=== PATIENT | female | born 1960 | race Caucasian/White ===

== ENCOUNTER 2023-09-06 14:33 | Emergency (ER) | payer OTHER ==
--- OUTSIDE RECORDS SUMMARY | 2023-09-06 14:42 | XMS REPORT | Continuity of Care Document ---
:1960 Author Organization [facility] t Address [address] [place] [address] [place] [id number] Care Team Providers Name Role Phone PATRICIO ZULETA Attending Clinician Unavailable Enriqueta Paulino MD, Marcia Jean Attending Clinici an Leonardo ROOT, Ana Loera Attending Clinician Lucia ROOT, Eric Attending Clinician Rosanna ROOT, Ivanna Saini Attending Clinician Tammi ROOT, Hermes Attending Clinician Shemar ROOT, Patricio Attending Clinician Virtual, Surgeon Attending Clinician Unavailable Lorie ROOT, Nunu Attending Clinician Jenae ZULETA, Benny Hooper Attending Clinician Unavailable Marisel Bolivar DO Attending Clinician Sage Lopez MD Attending Clinician MARISEL BOLIVAR Attending Clinician Unavailable Ger Rodriguez Attending Clinician VICKI CORONA Admitting Clinician Unavailable Sage Lopez MD Admitting Clinician Ger Rodriguez Admitting Clinician Payers Payer Name Policy Type Policy Number Effective Date Expiration Date S fidel MEDICARE A B [id number] 1996 00:00:00 GENERIC MEDICAID [id number] 2012 HMO 00:00:00 Problems Condition Condition Condition Status Onset Resolution Last Treating Co mments Source Name Details Category Date Date Treatment Clinician Date Osteoarthr Osteoarthr Disease [facility] Osteoporos Osteoporos Disease Recurre [facility] Intracereb Intracereb Disease Active [facility] ral bleed ral bleed 03-25 Luke s due to due to 00:00: Medical trauma trauma 00 Center ICH ICH Disease Active [facility] (intracere (intracere 03-25 Thelma kes bral bral 00:00: Medical hemorrhage hemorrhage 00 Ce nter ) ) UTI UTI Disease Active Univers (urinary (urinary 04-01 ity of tract tract 00:00: [place] infection) infection) 00 Me dical Branch Charcot-Ma Charcot-Ma Disease Recurre [facility] ev[facility]To[facility] nce 8-19 Luke s disease disease 00:00: Medical type 1F type 1F 00 Center Chronic Chronic Disease Recurre Overview: [facility] viral viral [facility] 8[facility] hepatitis hepatitis 00:00: g of this edical C C 00 note Center might be different from the original. Formattin g of this note might be different from the original. Chronic Hep C - untreated Pt refuses treatment and referral Essential Essential Disease Recurre Overview: [facility] hypertensi hypertensi nce 8-19 [facility] on on 00:00: g of this Medical 00 note Center might be different from the original. Formattin g of this note might be different from the original. On amlodipin e and metoprolo l Well controlle d Hyperlipid Hyperlipid Disease Recurre [facility] em[facility] emia [facility] 00:[facility]: Medical 00 Center Spina Spina Disease Recurre [facility] bifida bifida nce 8[facility] occulta occulta 00:00: Medical 00 Center NON-STEMI, NON-STEMI Diagnosis Active 2018-01-09 Memoria HYPOKALEMI , - 21:49:00 l , HYPOKALEMI 00:00: Lucas n DEHYDRATIO , 00 N DEHYDRATIO N Active 01/02/2018 [facility] Acidosis Acidosis Problem 2018-04-13 Memoria 04/13/2018 13:54:16 l [facility] Abnormal Abnormal Problem 2018-04-13 Memoria levels of levels of 13:54:16 l other other Wanda serum serum enzymes enzymes 04/13/2018 [facility] Scoliosis, Scoliosis Problem 2018-04-13 Memoria unspecifie , 13:54:16 l d unspecifie Lucas n d 04/13/2018 [facility] Other Other Problem 2018-04-13 Raphael natalie disorders disorders 13:54:16 l of of [place] phosphorus phosphorus metabolism metabolism 04/13/2018 [facility] Other Other Problem 2018-04-13 Memor ia disorders disorders 13:54:16 l of of [place] electrolyt electrolyt e and e and fluid fluid balance, balance, not not elsewhere elsewhere classified classified 04/13/2018 [facility] Emphysema, Emphysema Problem 2018-04-13 Memoria unspecifie , 13:54:16 l d unspecifie Lucas n d 04/13/2018 [facility] Spina Spina Problem 2018-04-13 Memor ia bifida, bifida, 13:54:16 l unspecifie unspecifie He rmann d d 04/13/2018 [facility] Unspecifie Unspecifi Problem 2018-04-13 Memoria d fall, ed fall, 13:54:16 l initial initial Wanda encounter encounter 04/13/2018 [facility] Elevated Elevated Problem 2018-04-13 Memoria white white 13:54:16 l blood cell blood cell He [facility] count, count, unspecifie unspecifie d d 04/13/2018 [facility] Adverse Adverse Problem 2018-04-13 Me moria effect of effect of 13:54:16 l carbonic-a carbonic-a He [facility] nhydrase nhydrase inhibitors inhibitors , , benzothiad benzothiad iazides iazides and other and other diuretics, diuretics, initial initial encounter encounter 04/13/2018 [facility] Nicotine Nicotine Problem 2018-04-13 Memoria dependence dependence 13:54:16 l , Wanda cigarettes cigarettes , , uncomplica uncomplica darrion darrion 04/13/2018 [facility] Headache Headache Problem 2018-04-13 Memoria 04/13/2018 13:54:16 l [facility] Vitamin D Vitamin D Problem 2018-04-13 Memoria deficiency deficiency 13:54:16 l , , Wanda unspecifie unspecifie d d 04/13/2018 [facility] Age-relate Age-relat Problem 2018-04-13 Memoria d physical ed 13:54:16 l debility physical Lucas monterroso debility 04/13/2018 [facility] Unspecifie Problem 2018-04-13 M emoria d asthma, Unspecifie 13:54:16 l uncomplica d asthma, Her caicedo darrion uncomplica darrion 04/13/2018 [facility] Constipati Constipat Problem 2018-04-13 Memoria on, ion, 13:54:16 l unspecifie unspecifie He rmann d d 04/13/2018 [facility] Chronic Chronic Problem 2018-04-13 Me moria kidney kidney 13:54:16 l disease, disease, Lucas monterroso stage 2 stage 2 (mild) (mild) 04/13/2018 [facility] Tobacco Tobacco Problem 2018-04-13 Me moria abuse abuse 13:54:16 l counseling counseling He rmann 04/13/2018 [facility] Charcot Charcot Problem Resolve 2018-04-13 M emoria arthropath arthropath d 13:54:16 l y due to y due to Lucas monterroso syringomye syringomye ambrose ambrose (disorder) (disorder) Resolved Problem 04/13/2018 [facility] Hypertensi Hypertens Problem Resolve 2018-04-13 Memoria ve tony d 13:54:16 l disorder, disorder, Herm derrick systemic systemic arterial arterial (disorder) (disorder) Resolved Problem 04/13/2018 [facility] Scoliosis Scoliosis Problem Active 2018-04-13 Memoria deformity deformity 13:54:16 l of spine of spine Lucas monterroso (disorder) (disorder) Active Problem 04/13/2018 [facility] NON-ST NON-ST Diagnosis Active 2018-01-09 Me moria ELEVATION ELEVATION 21:49:00 l (NSTEMI) (NSTEMI) Lucas monterroso MYOCARDIAL MYOCARDIAL INF INF Active [facility] [place] HYPOKALEMI HYPOKALEM Diagnosis Active 2018-01-09 Memoria A IA Active 21:49:00 l [facility] [place] Curran Dehydratio Dehydrati Problem 2018-04-13 Juliaoria n on 13:54:16 l 04/13/2018 Lucas monterroso [facility] Syringomye Syringomy Problem 2018-04-13 Memoria ambrose and taryn and 13:54:16 l syringobul syringobul He rmderrick courtney courtney 04/13/2018 [facility] Acute Acute Problem 2018-04-13 Memor ia kidney kidney 13:54:16 l failure, failure, Lucas monterroso unspecifie unspecifie d d 04/13/2018 [facility] Unspecifie Unspecifi Problem 2018-04-13 Memoria d ed 13:54:16 l diastolic diastolic Herm derrick (congestiv (congestiv e) heart e) heart failure failure 04/13/2018 [facility] Hypertensi Hypertens Problem 2018-04-13 Memoria ve heart tony heart 13:54:16 l and and [place] chronic chronic kidney kidney disease disease with heart with heart failure failure and stage and stage 1 through 1 through stage 4 stage 4 chronic chronic kidney kidney disease, disease, or or unspecifie unspecifie d chronic d chronic kidney kidney disease disease 04/13/2018 [facility] Hypo-osmol Hypo-osmo Problem 2018-04-13 Memoria alililia and lality and 13:54:16 l hyponatrem hyponatrem He rmann ia ia 04/13/2018 [facility] History of Past Illness Condition Condition Condition Status Onset Resolution Last Treating Co mments Source Name Details Category Date Date Treatment Clinician Date Hypokalemi Hypokalem Problem 2017-2018-04-13 2018-04-13 Joesph a ia 3-15 13:54:16 13:54:16 l 01/12/2018 03:20: Lucas monterroso 04/13/2018 45 [facility] Allergies, Adverse Reactions, Alerts Allergy Allergy Status Severity Reaction(s) Onset Inactive Treating Comm ents Source Name Type Date Date Clinician PROPOXYP Allergy Active [facility]26 [facility] N-ACETAM 00:00: Medical INOPHEN 00 Center Propoxyp Propensi Active [facility] hene ty to 5-26 [facility] N-Acetam adverse 00:00: Medical inophen reaction 00 Center s PROPOXYP DRUG Active Low N/V Univers HENE 6-02 ity of N-ACETAM 00:00: [place] INOPHEN 00 Medical Branch PROPOXYP DRUG Active Low N/V Univers HENE INGREDI 04-01 ity of 00:00: [place] 00 [facility] Branch Propoxyp Propensi Active Nausea Univer s hene ty to and/or 04-01 ity of N-Acetam adverse Vomiting 00:00: [place] inophen reaction [facility] Propoxyp Propensi Active Nausea [facility] s hene ty to and/or 04-01 ity of adverse Vomiting 00:00: [place] reaction 00 [facility] NO KNOWN Allergy Active [facility] NO KNOWN Drug Active [facility] ALLERGIE Class ity of S [facility] Social History Social Habit Start Date Stop Date Quantity Comments Source Exposure to Not sure University of SARS-CoV-2 [facility] (event) [place] Tobacco use and 2021-04-01 2021-04-01 Never used Universit y of exposure 00:00:00 00:00:00 [facility] Alcohol intake 2021-04-01 2021-04-01 Current drinker Unive rsity of 00:00:00 00:00:00 of alcohol [facility] (finding) [place] Alcohol Comment 2021-04-01 2021-04-01 socially Universit y of 00:00:00 00:00:00 [facility] Social History 2018-01-03 2018-01-03 [facility] 07:24:02 07:24:02 Sex Assigned At [address] Thelma kes 00:00:00 00:00:00 [facility] Smoking Status Start Date Stop Date Source Current every day smoker 2021-04-01 00:00:00 Uni versity of [facility] Medications Ordered Filled Start Stop Current Ordering Indication Dosage Frequency Signature Comments Components Source Medication Medication Date Date Medication? Clinician (SIG) Name Name pantoprazol 2022- No 40mg QD Take [address] [facility] e 04-01 tablet (40 [facility] (PROTONIX) 00:00: 23:59 mg total) M edical 40 MG 00 :00 by mouth Center tablet in the morning for 30 days. gabapentin 2023- No 300mg [id number] Take [address] (NEURONTIN) 03-31 0531 [id number] capsule [facility] 300 MG 00:00: 23:59 3D (300 mg Medical capsule 00 :00 total) by Center mouth in the morning and 1 capsule (300 mg total) at noon and 1 capsule (300 mg total) in the evening. cyclobenzap 0 2022- No 10mg Take [address] [facility] rine 6-01 06-11 tablet (10 [facility] (FLEXERIL) 00:00: 23:59 mg total) M edical 10 MG 00 :00 by mouth 3 Center tablet (three) times daily as needed for Muscle spasms for up to 10 days. HYDROcodone 0 Yes 1{tbl} Take 1 Un lesly -acetaminop 6-04 tablet by ity of hen 10-325 23:15: mouth [place] mg tablet 04 every 8 Medical (eight) Branch hours as needed. gabapentin 0 Yes 300mg Take 300 Un lesly ER 300 mg 6-04 mg by ity of tablet, 23:15: mouth 3 [place] extended 04 (three) Medical release 24 times Branch hr daily. ibuprofen 0 Yes 800mg Take 800 Uni vers 600 mg 6-04 mg by ity of tablet 23:15: mouth 3 [place] 04 (three) Medical times Branch daily. cyclobenzap 0 Yes 10mg Take 10 mg Univers rine 5 mg 6-04 by mouth 3 ity of tablet 23:15: (three) [place] 04 times Medical daily. Branch amitriptyli Yes 75mg Take 75 mg Univers ne 75 mg 6-04 by mouth ity of tablet 23:15: at [place] 04 bedtime. Medical Branch amLODIPine 0 Yes 5mg Take 5 mg Un lesly 5 mg tablet 6-04 by mouth ity of 23:15: daily. [place] 04 Medical Branch butalbital- 2020-0 Yes 1{capsu Take 1 U nivers aspirin-caf 6-04 le} capsule by it y of feine 23:15: mouth [place] (FIORINAL) 04 every 4 Medica l 50-325-40 (four) Branch mg per hours as capsule needed for Pain. metoprolol 0 Yes 25mg Take 25 mg U nivers succinate 6-04 by mouth 3 ity of 25 mg CSpX 23:15: (three) [place] 04 times Medical daily. Branch HYDROcodone 0 Yes 1{tbl} Take 1 Un lesly -acetaminop 6-04 tablet by ity of hen 10-325 23:15: mouth [place] mg tablet 04 every 8 Medical (eight) Branch hours as needed. gabapentin Yes 300mg Take 300 Un lesly ER 300 mg 6-04 mg by ity of tablet, 23:15: mouth 3 [place] extended 04 (three) Medical release 24 times Branch hr daily. ibuprofen Yes 800mg Take 800 Uni vers 600 mg 6-04 mg by ity of tablet 23:15: mouth 3 [place] 04 (three) Medical times Branch daily. cyclobenzap Yes 10mg Take 10 mg Univers rine 5 mg 6-04 by mouth 3 ity of tablet 23:15: (three) [place] 04 times Medical daily. Branch amitriptyli Yes 75mg Take 75 mg Univers ne 75 mg 6-04 by mouth ity of tablet 23:15: at [place] 04 bedtime. Medical Branch amLODIPine Yes 5mg Take 5 mg Un lesly 5 mg tablet 6-04 by mouth ity of 23:15: daily. 04 Medical Branch butalbital- Yes 1{capsu Take 1 U nivers aspirin-caf 6-04 le} capsule by it y of feine 23:15: mouth [place] (FIORINAL) 04 every 4 Medica l 50-325-40 (four) Branch mg per hours as capsule needed for Pain. metoprolol Yes 25mg Take 25 mg U nivers succinate 6-04 by mouth 3 ity of 25 mg CSpX 23:15: (three) [place] 04 times Medical daily. Branch butalbital- Yes 1{tbl} 1 tablet, Univers acetaminoph 6-04 Oral, ity of en-caff 10:52: Q6HPRN, [place] (ESGIC) 03 Starting Medical 50-325-40 04/03/21 Bran ch mg tablet 1 at 0552, tablet Until Discontinu ed, Routine, Headache levoFLOXaci 2020- No [id number] 750mg Take 1 Univers n 750 mg 6-04 06-15 tablet by ity o f tablet 00:00: 04:59 mouth [place] 00 :00 every 24 Medical (twenty-fo Branch ur) hours for 10 days. levoFLOXaci 2020- No [id number] 750mg Take 1 Univers n 750 mg 04-03 tablet by ity o f tablet 00:00: 04:59 mouth [place] 00 :00 every 24 Medical (twenty-fo [place] ur) hours for 10 days. magnesium 2020- No 2g 2 g, IV Univ ers sulfate in 04-02 Piggyback, it y of water 2 23:45: 23:31 ONCE, 1 [place] gram/50 mL 00 :00 dose, [facility] Medi amina (4 %) 04/02/21 at Branch infusion 2 1845, g Routine cefTRIAXone Yes 2000mg 2,000 mg, Univers (ROCEPHIN) 04-02 IV ity of 2,000 mg in 18:00: Piggyback, [place] NaCl 0.9% 00 Q24H ABX, Medic al (NS) 100 mL First dose Br anch MINI-BAG (after last modificati on) on Jeri 04/02/21 at 1300, Until Discontinu ed, 100 mL
Reas on for Anti-Infec tive: Empiric Therapy for Suspected Infection< br>Empiric Therapy Site: Urine
D uration of therapy: 72 hours magnesium 2020- No 2g 2 g, IV Univ ers sulfate in 04-02 Piggyback, it y of water 2 14:30: 14:25 ONCE, 1 [place] gram/50 mL 00 :00 dose, [facility] Medi amina (4 %) 04/02/21 at [place] infusion 2 0930, g Routine amLODIPine Yes 5mg 5 mg, Univer s (NORVASC) 04-02 Oral, ity of tablet 5 mg 14:00: DAILY, [place] 00 First dose Medical (after [place] last modificati on) on Jeri 04/02/21 at 0900, Until Discontinu ed, Routine phosphorus Yes 250mg 1 tablet Un lesly (K PHOS 04-02 (250 mg), ity of NEUTRAL) 13:30: Oral, QID, J[place] as tablet 1 00 First dose Medic al tablet on Jeri Branch 04/02/21 at 0830, Until Discontinu ed, Routine KCL 2020- No 60meq 60 mEq, Univers (KLOR-CON 04-02 Oral, BID, ity of M20) tablet 13:30: 13:27 First dose [place] 60 mEq 00 :27 (after Medical last Branch reorder) on Jeri 04/02/21 at 0830, Until Discontinu ed, Routine potassium 2020- No 10meq 10 mEq, IV Univers chloride in 04-02 Piggyback, i ty of water 10 13:30: 18:55 Q1H, 4 [place] mEq/100 mL 00 :00 doses, Medical RTU 10 mEq First dose Bra nch on Jeri 04/02/21 at 0830, Last dose on Jeri 04/02/21 at 1100, 100 mL NaCl 0.9% 2020- No 1000mL at 100 Uni vers (NS) IV 04-02 mL/hr, IV ity of infusion 06:30: 05:37 Infusion, J[place] as 1,000 mL 00 :00 ONCE, 1 Medical dose, [facility] 04/02/21 at 0130, Routine nicotine Yes 1{patch 1 Patch, Un lesly (NICODERM) 04-02 } Topical, ity o f 14 mg/24 hr 01:45: Administer [place] patch 1 00 over 24 Medical Patch Hours, Branch Q24H, First dose on Tue04/01/21 at 2045, Until Discontinu ed, Routine metoprolol Yes 25mg 25 mg, Unive rs succinate 04-02 Oral, TID, ity of XL (TOPROL 01:00: First dose [place] XL) tablet 00 on Tue Medical 25 mg 04/01/21 at Branch 1999, Until Discontinu ed gabapentin 2020- No 300mg 300 mg, Un lesly (NEURONTIN) 04-02 Oral, TID, i ty of capsule 300 01:00: 05:27 First dose [place] mg 00 :59 on Tue Medical 04/01/21 at Branch 1999, Until Discontinu ed cyclobenzap 2020- No 10mg 10 mg, Uni vers rine 04-02 Oral, TID, ity of (FLEXERIL) 01:00: 05:28 First dose [place] tablet 10 00 :04 on Tue Medical mg 04/01/21 at Branch 1999, Until Discontinu ed, Routine metoprolol No 25mg Take 25 mg Univers succinate 04-01 by mouth ity o f XL 25 mg 24 23:54: 00:00 daily. Jaxon as hr tablet 35 :00 [facility] predniSONE No 10mg Take 10 mg Univers 10 mg 04-01 by mouth ity of tablet 23:54: 00:00 daily. [place] 35 :00 [facility] HYDROcodone Yes 1{tbl} 1 tablet, Univers -acetaminop 04-01 Oral, ity of hen (NORCO) 23:53: Q8HPRN, [place] as 10-325 mg 35 Starting Medica l tablet 1 Tue04/01/21 Bran h tablet at 1853, Until Discontinu ed, Routine, Pain (scale 7-10) cefTRIAXone No 1000mg 1,000 mg, Univers (ROCEPHIN) 04-01 IV ity of 1,000 mg in 22:15: 22:03 [place], [place] NaCl 0.9% 00 :00 ONCE, 1 Medical (NS) 50 mL dose, Tue [facility] MINI-BAG 04/01/21 at 1715, 50 mL
Reas on for Anti-Infec tive: Empiric Therapy for Suspected Infection< br>Empiric Therapy Site: Urine
D uration of therapy: 72 hours enoxaparin Yes 30mg 30 mg, Unive rs (LOVENOX) 04-01 Subcutaneo ity of injection 22:00: us, DAILY, [place] 30 mg 00 First dose Medical on Tue Branch 04/01/21 at 1700, Until Discontinu ed, Routine NaCl 0.9% 2020- No 1000mL at 100 Uni vers (NS) IV 04-01-03 mL/hr, IV ity of infusion 21:15: 05:28 Infusion, J[place] as 1,000 mL 00 :20 CONTINUOUS Medic al , Starting Branch Tue04/01/21 at 1615, Until Jeri 04/02/21 at 0028, Routine iopamidol 2020- No [id number] 130mL 130 mL, Univers (ISOVUE 04-01 Intravenou ity o f 370-500 mL) 20:08: 20:07 s, ONCE, 1 [place] injection 00 :00 dose, Tue Medic al 130 mL 04/01/21 at Branch 1530, Routine acetaminoph Yes 650mg 650 mg, Un lesly en 04-01 Oral, ity of (TYLENOL) 20:03: Q6HPRN, [place] tablet 650 59 Starting Medic al mg 04/01/21 Branch at 1503, Until Discontinu ed, Routine, Pain (scale 1-3) KCL 2020- No 40meq 40 mEq, Univers (KLOR-CON 04-01 Oral, ity of M20) tablet 20:00: 18:53 ONCE, 1 [place] 40 mEq 00 :00 dose, [facility] Medical 04/01/21 at Branch 1500, Routine cefTRIAXone 2020- No 1000mg 1,000 mg, Univers (ROCEPHIN) 04-01 IV ity of 1,000 mg in 19:00: 18:48 Piggyback, [place] NaCl 0.9% 00 :00 ONCE, 1 Medical (NS) 50 mL dose, Tue Bran ch MINI-BAG 04/01/21 at 1400, 50 mL
Reas on for Anti-Infec tive: Empiric Therapy for Suspected Infection< br>Empiric Therapy Site: Urine
D uration of therapy: 72 hours acetaminoph 2020- No 1000mg 1,000 mg, Univers en 04-01 Oral, ity of (TYLENOL) 18:30: 17:21 ONCE, 1 [place] tablet 00 :00 dose, [facility] Medical 1,000 mg 04/01/21 at Branch 1330, Routine NaCl 0.9% 2020- No 1000mL at 999 Uni vers (NS) bolus 04-0102 mL/hr, ity of infusion 18:30: 18:14 1,000 mL, [place] as 1,000 mL 00 :00 IV Medical Infusion, [place] ONCE, 1 dose, 04/01/21 at 1330, STAT potassium 2018- No Notes: Juliaori a phosphate-s 3-08 (Same as: l odium 23:00: Phos-NaK) Wanda phosphate 00 Each 1.5 250 mg-280 gm pkt has mg-160 mg 250mg oral powder phosphorou for s. Mix reconstitut w/2.5oz ion water and stir. Indomethaci No Notes: Raphael natalie n -08 (Same as: l 23:00: Indocin) [place] 00 Take with food potassium No Notes: Memori a phosphate-s 01-05 (Same as: l odium 23:00: Phos-NaK) Wanda phosphate 00 Each 1.5 250 mg-280 gm pkt has mg-160 mg 250mg oral powder phosphorou for s. Mix reconstitut w/2.5oz ion water and stir. Indomethaci No Notes: Raphael natalie n 3-08 (Same as: l 23:00: Indocin) Wanda Take with food spironolact Yes 25 mg = 1 M emoria one 25 mg 3-08 tab, PO, l oral tablet 19:55: BID, # 60 H ermann 00 tab, 0 Refill(s) potassium Yes 1 pkt, PO, Me moria phosphate-s 01-05 BID, # 60 l odium 19:55: pkt, 0 Wanda phosphate 00 Refill(s) 250 mg-280 mg-160 mg oral powder for reconstitut ion potassium Yes 40 mEq = 2 Me moria chloride 20 3-08 tab, PO, l mEq oral 19:55: BID, # 120 Her caicedo tablet, 00 tab, 0 extended Refill(s) release 24 HR No = 1 patch, Memori a Nicotine 3-08 TOP, l 0.875 MG/HR 19:55: Daily, X He rmann Transdermal 00 14 day, # Patch 14 patch, 0 Refill(s) metoprolol Yes 25 mg = 1 Me moria 25 mg oral 3-08 tab, PO, l tablet, 19:55: Daily, # Lucas n extended 00 30 tab, 2 release Refill(s) atorvastati Yes 40 mg = 1 M emoria n 40 mg 3-08 tab, PO, l oral tablet 19:55: Bedtime, # Magdy 00 30 tab, 2 Refill(s) Aspirin 81 Yes 81 mg = 1 Me moria MG Enteric 3-08 tab, PO, l Coated 19:55: Daily, # Wanda Tablet 00 30 tab, 2 Refill(s) spironolact Yes 25 mg = 1 M emoria one 25 mg 3-08 tab, PO, l oral tablet 19:55: BID, # 60 H ermann 00 tab, 0 Refill(s) potassium Yes 1 pkt, PO, Me moria phosphate-s 3-08 BID, # 60 l odium 19:55: pkt, 0 Magdy phosphate 00 Refill(s) 250 mg-280 mg-160 mg oral powder for reconstitut ion potassium Yes 40 mEq = 2 Me moria chloride 20 3-08 tab, PO, l mEq oral 19:55: BID, # 120 Her caicedo tablet, 00 tab, 0 extended Refill(s) release 24 HR No = 1 patch, Memori a Nicotine 3-08 TOP, l 0.875 MG/HR 19:55: Daily, X He rmann Transdermal 00 14 day, # Patch 14 patch, 0 Refill(s) metoprolol Yes 25 mg = 1 Me moria 25 mg oral 3-08 tab, PO, l tablet, 19:55: Daily, # Lucas n extended 00 30 tab, 2 release Refill(s) atorvastati Yes 40 mg = 1 M emoria n 40 mg 3-08 tab, PO, l oral tablet 19:55: Bedtime, # Wanda 00 30 tab, 2 Refill(s) Aspirin 81 Yes 81 mg = 1 Me moria MG Enteric 3-08 tab, PO, l Coated 19:55: Daily, # Magdy Tablet 00 30 tab, 2 Refill(s) potassium No Notes: Memori a phosphate + 3-08 (Same as: l Sodium 17:26: K Wanda Chloride 00 Phosphate. 0.9% IV 250 ) 1 mMol mL phoshate has 1.47 mEq potassium Infuse over 4 hours potassium No Notes: Memori a phosphate + 3-08 (Same as: l Sodium 17:26: K Magdy Chloride 00 Phosphate. 0.9% IV 250 ) 1 mMol mL phoshate has 1.47 mEq potassium Infuse over 4 hours Ergocalcife No Notes: Raphael natalie rol -08 (Same as: l 15:00: Vitamin D) Mag[place] 00 "Do Not Crush" Ergocalcife No Notes: Raphael natalie rol 3-08 (Same as: l 15:00: Vitamin D) Magdy "Do Not Crush" Potassium No 40 mEq, Memor ia Chloride 3-08 Route: PO, l 14:38: ONCE, Mag[place] 00 Dosing Weight 44.091, kg, Start date: 01/05/18 8:38:00 [employer], Stop date: 01/05/18 8:38:00 [employer] Potassium No 40 mEq, Memor ia Chloride 3-08 Route: PO, l 14:38: ONCE, Wanda 00 Dosing Weight 44.091, kg, Start date: 01/05/18 8:38:00 [employer], Stop date: 01/05/18 8:38:00 [employer] potassium No Notes: Memori a phosphate 3-08 (Same as: l 12:16: K Wanda 00 Phosphate. ) 1 mMol phoshate has 1.47 mEq potassium Infuse over 4 hours potassium No Notes: Memori a phosphate 3-08 (Same as: l 12:16: K Mag[place] 00 Phosphate. ) 1 mMol phoshate has 1.47 mEq potassium Infuse over 4 hours potassium No Notes: Memori a chloride 20 3-07 (Same as: l mEq oral 23:00: K-Dur 20) Herm derrick tablet, 00 "Do Not extended Crush" release With food and full glass of water potassium No Notes: Memori a chloride 20 3-07 (Same as: l mEq oral 23:00: K-Dur 20) Herm derrick tablet, 00 "Do Not extended Crush" release With food and full glass of water Potassium No Notes: Memori a Chloride 3-07 (Same as: l 22:08: K-Dur 20) Magdy 00 "Do Not Crush" With food and full glass of water Potassium No Notes: Memori a Chloride 3-07 (Same as: l 22:08: K-Dur 20) Magdy 00 "Do Not Crush" With food and full glass of water Famotidine No Notes: Memor ia 20 MG Oral 3-07 (Same as: l Tablet 15:00: Pepcid) Wanda [Pepcid] 00 potassium 2017-0 No 40 mEq, 2 Mem oria chloride 20 3-07 tab, l mEq oral 15:00: Route: PO, Her caicedo tablet, 00 Drug form: extended ERTAB, release Daily, Dosing Weight 44.091, kg, Start date: 01/04/18 9:00:00 [employer], Duration: 30 day, Stop date: 02/02/18 9:00:00 CDT Prednisone 2017-0 No Notes: Memor ia 3-07 (Same as: l 15:00: PredniSONE Magdy ) Take with food. Famotidine No Notes: Memor ia 20 MG Oral 3-07 (Same as: l Tablet 15:00: Pepcid) Wanda [Pepcid] potassium No 40 mEq, 2 Mem oria chloride 20 3-07 tab, l mEq oral 15:00: Route: PO, Her caicedo tablet, 00 Drug form: extended ERTAB, release Daily, Dosing Weight 44.091, kg, Start date: 01/04/18 9:00:00 [employer]ER, Duration: 30 day, Stop date: 02/02/18 9:00:00 CDT Prednisone 2017-0 No Notes: Memor ia 3-07 (Same as: l 15:00: PredniSONE ) Take with food. potassium No Notes: Memori a chloride 20 3-07 (Same as: l mEq oral 14:18: K-Dur 20) Herm derrick tablet, 00 "Do Not extended Crush" release With food and full glass of water potassium No Notes: Memori a chloride 20 3-07 (Same as: l mEq oral 14:18: K-Dur 20) Herm derrick tablet, 00 "Do Not extended Crush" release With food and full glass of water Potassium 0 No Notes: Memori a Chloride 3-07 (Same as: l 08:00: KCL) 00 Infuse no faster than 10 mEq/hr if given peripheral ly. Potassium 0 No Notes: Memori a Chloride 3-07 (Same as: l 08:00: KCL) Magdy 00 Infuse no faster than 10 mEq/hr if given peripheral ly. Indomethaci No Notes: Raphael natalie n 3-07 (Same as: l 03:45: Indocin) Wanda 00 Take with food Spironolact No Notes: Raphael natalie one 3-07 (Same As: l 03:45: Aldactone) Indomethaci No Notes: Raphael natalie n 3-07 (Same as: l 03:45: Indocin) Take with food Spironolact No Notes: Raphael natalie one 3-07 (Same As: l 03:45: Aldactone) atorvastati No Notes: Raphael natalie n 3-07 (Same as: l 03:00: Lipitor) Amitriptyli No Notes: Raphael natalie ne 3-07 (Same as: l 03:00: Elavil) atorvastati No Notes: Raphael natalie n 3-07 (Same as: l 03:00: Lipitor) Amitriptyli No Notes: Raphael natalie ne 3-07 (Same as: l 03:00: Elavil) Potassium No 20 mEq, Memor ia Chloride 3-07 Route: l 02:00: IVPB, Q2H, Dosing Weight 44.091, kg, Total dose = 80 mEq, Start date: 01/03/18 20:00:00 [employer]ER, Duration: 4 doses or times, Stop date: 01/04/18 2:00:00 [employer] ASSETS OFFICER, Central Line Potassium No 20 mEq, Memor ia Chloride 3-07 Route: l 02:00: IVPB, Q2H, Dosing Weight 44.091, kg, Total dose = 80 mEq, Start date: 01/03/18 20:00:00 [employer] OFF[employer]ER, Duration: 4 doses or times, Stop date: 01/04/18 2:00:00 [employer] ASSETS OFFICER, Central Line Potassium 2017-0 No Notes: Memori a Chloride 3-07 (Same as: l 00:09: KCL) Infuse no faster than 10 mEq/hr if given peripheral ly. Potassium No Notes: Memori a Chloride 3-07 (Same as: l 00:09: KCL) Infuse no faster than 10 mEq/hr if given peripheral ly. Potassium 2018-0 No Notes: Memori a Chloride 3-07 (Same as: l 00:01: K-Dur 20) Wanda 00 "Do Not Crush" With food and full glass of water Potassium No Notes: Memori a Chloride 3-07 (Same as: l 00:01: K-Dur 20) Magdy 00 "Do Not Crush" With food and full glass of water Nicotine No Notes: Memoria 3-06 (Same as: l 21:00: Habitrol) Magdy 00 "Remove old patch before applicatio n of new patch" WASTE: F/P - P Waste Black; E - P Waste Black Nicotine No Notes: Memoria 3-06 (Same as: l 21:00: Habitrol) Wanda 00 "Remove old patch before applicatio n of new patch" WASTE: F/P - P Waste Black; E - P Waste Black Nicotine No 21 mg, Memoria 3-06 Route: l 20:12: TOP, Drug Wanda 00 form: ERFILM, ONCE, Dosing Weight 44.091, kg, Start date: 01/03/18 14:12:00 [employer], Stop date: 01/03/18 14:12:00 [employer]ER Nicotine No 21 mg, Memoria 3-06 Route: l 20:12: TOP, Drug Magdy 00 form: ERFILM, ONCE, Dosing Weight 44.091, kg, Start date: 01/03/18 14:12:00 [employer] OFFICER, Stop date: 01/03/18 14:12:00 [employer] OFF[employer]ER potassium No Notes: Memori a chloride 20 3-06 (Same as: l mEq oral 16:57: K-Dur 20) Herm derrick tablet, 00 "Do Not extended Crush" release With food and full glass of water potassium No Notes: Memori a chloride 20 3-06 (Same as: l mEq oral 16:57: K-Dur 20) Herm derrick tablet, 00 "Do Not extended Crush" release With food and full glass of water Saline No Notes: Memoria Flush 0.9% 3-06 (Same as: l 15:00: BD Wanda 00 Posiflush) potassium No Notes: Memori a chloride 20 3-06 (Same as: l mEq oral 15:00: K-Dur 20) Herm derrick tablet, 00 "Do Not extended Crush" release With food and full glass of water Aspirin 81 No Notes: Do Me moria MG Enteric 3-06 not crush l Coated 15:00: or chew. Wanda Tablet 00 (Same As: Ecotrin) enalapril No 2.5 mg, Memor ia 3-06 Route: PO, l 15:00: Drug form: Wanda 00 TAB, Daily, Dosing Weight 44.273, kg, Start date: 01/03/18 9:00:00 [employer]ER, Duration: 30 day, Stop date: 02/01/18 9:00:00 CDT metoprolol No Notes: Memor ia extended 3-06 (Same as: l release 15:00: Toprol XL) Herm derrick 00 Do Not Crush Saline No Notes: Memoria Flush 0.9% 3-06 (Same as: l 15:00: BD Magdy 00 Posiflush) potassium No Notes: Memori a chloride 20 3-06 (Same as: l mEq oral 15:00: K-Dur 20) Herm derrick tablet, 00 "Do Not extended Crush" release With food and full glass of water Aspirin 81 No Notes: Do Me moria MG Enteric 3-06 not crush l Coated 15:00: or chew. Magdy Tablet 00 (Same As: Ecotrin) enalapril No 2.5 mg, Memor ia 3-06 Route: PO, l 15:00: Drug form: Magdy 00 TAB, Daily, Dosing Weight 44.273, kg, Start date: 01/03/18 9:00:00 [employer] OFF[employer]ER, Duration: 30 day, Stop date: 02/01/18 9:00:00 CDT metoprolol No Notes: Memor ia extended 3-06 (Same as: l release 15:00: Toprol XL) Herm derrick 00 Do Not Crush Saline No Notes: Memoria Flush 0.9% 3-06 (Same as: l 14:00: BD Wanda 00 Posiflush) Saline No Notes: Memoria Flush 0.9% 3-06 (Same as: l 14:00: BD Magdy 00 Posiflush) Lidocaine No Notes: Memori a Hydrochlori 3-06 Preservati l de 10 MG/ML 13:00: ve free. He rmann Injectable 00 (Same as: Solution Xylocaine MPF) Lidocaine No Notes: Memori a Hydrochlori 3-06 Preservati l de 10 MG/ML 13:00: ve free. He rmann Injectable 00 (Same as: Solution Xylocaine MPF) Saline No Notes: Memoria Flush 0.9% 3-06 (Same as: l 12:09: BD Wanda 00 Posiflush) Saline No Notes: Memoria Flush 0.9% 3-06 (Same as: l 12:09: BD Wanda 00 Posiflush) Potassium No Notes: Memori a Chloride 3-06 (Same as: l 12:00: KCL) Wanda 00 Infuse no faster than 10 mEq/hr if given peripheral ly. Potassium No Notes: Memori a Chloride 3-06 (Same as: l 12:00: KCL) Wanda 00 Infuse no faster than 10 mEq/hr if given peripheral ly. Saline No Notes: Memoria Flush 0.9% 3-06 (Same as: l 10:08: BD Wanda 00 Posiflush) Lidocaine No Notes: Memori a Hydrochlori 3-06 Preservati l de 10 MG/ML 10:08: ve free. He rmann Injectable 00 (Same as: Solution Xylocaine MPF) Saline No Notes: Memoria Flush 0.9% 3-06 (Same as: l 10:08: BD Magdy 00 Posiflush) Lidocaine No Notes: Memori a Hydrochlori 3-06 Preservati l de 10 MG/ML 10:08: ve free. He rmann Injectable 00 (Same as: Solution Xylocaine MPF) amitriptyli Yes 75 mg = 1 M emoria ne 75 mg 3-06 tab, PO, l oral tablet 08:51: Bedtime, # Wanda 00 30 tab, 0 Refill(s) predniSONE Yes 10 mg = 1 Me moria 10 mg oral 3-06 tab, PO, l tablet 08:51: Daily, 0 Magdy 00 Refill(s) Butalbital 2018-0 Yes 2 tab, PO, M emoria Compound 3-06 BID, 0 l oral tablet 08:51: Refill(s) H erm Hydrochloro 2017-0 No 50 mg, PO, Memoria thiazide 3-06 Daily, 0 l 08:51: Refill(s) Magdy 00 cyclobenzap No 10 mg = 1 M emoria rine 10 mg 3-06 tab, PO, l oral tablet 08:51: TID, 0 Herm derrick Refill(s) Bisacodyl 2017-0 No 5 mg, Memoria 3-06 Daily, 0 l 08:51: Refill(s) Magdy 00 ibuprofen 0 No 800 mg = 1 Me moria 800 mg oral 3-06 tab, PO, l tablet 08:51: BID, 0 Wanda 00 Refill(s) amitriptyli Yes 75 mg = 1 M emoria ne 75 mg 3-06 tab, PO, l oral tablet 08:51: Bedtime, # Magdy 00 30 tab, 0 Refill(s) predniSONE 0 Yes 10 mg = 1 Me moria 10 mg oral 3-06 tab, PO, l tablet 08:51: Daily, 0 Wanda 00 Refill(s) Butalbital 2017-0 Yes 2 tab, PO, M emoria Compound 3-06 BID, 0 l oral tablet 08:51: Refill(s) H erm Hydrochloro 2017-0 No 50 mg, PO, Memoria thiazide 3-06 Daily, 0 l 08:51: Refill(s) Wanda 00 cyclobenzap 0 No 10 mg = 1 M emoria rine 10 mg 3-06 tab, PO, l oral tablet 08:51: TID, 0 Herm derrick 00 Refill(s) Bisacodyl 2018-0 No 5 mg, Memoria 3-06 Daily, 0 l 08:51: Refill(s) Wanda 00 ibuprofen 0 No 800 mg = 1 Me moria 800 mg oral 3-06 tab, PO, l tablet 08:51: BID, 0 Magdy 00 Refill(s) NS + KCL 0 No Notes: Memoria 20mEq/L 3-06 PREMIX IV l 1000ml 08:38: - Do Not Magdy (Premix) 00 Alter 1,000 mL WASTE: F/P - Sink; E - Municipal Trash Bin NS + KCL No Notes: Memoria 20mEq/L 01-03 PREMIX IV l 1000ml 08:38: - Do Not Magdy (Premix) 00 Alter 1,000 mL WASTE: F/P - Sink; E - Municipal Trash Bin Ondansetron No Notes: Raphael natalie 01-03 (Same as: l 07:51: Zofran Wanda 00 ODT) Morphine No Notes: Memoria 01-03 (Same l 07:51: as:MORPhin Magdy 00 e Sulfate) Nitroglycer No Notes: Raphael natalie in 01-03 (Same l 07:51: as:Nitroqu Magdy 00 ick, Nitrostat) "Do Not Crush" Sublingual tablet Ondansetron No Notes: Raphael natalie 01-03 (Same as: l 07:51: Zofran Magdy 00 ODT) Morphine No Notes: Memoria 01-03 (Same l 07:51: as:MORPhin Magdy 00 e Sulfate) Nitroglycer No Notes: Raphael natalie in 01-03 (Same l 07:51: as:Nitroqu Wanda 00 ick, Nitrostat) "Do Not Crush" Sublingual tablet Vital Signs Vital Name Observation Time Observation Value Comments Source WEIGHT 2023-03-27 06:00:00 46.6 kg HEIGHT 2023-03-25 18:00:00 144.8 cm WEIGHT 2023-03-25 18:00:00 46.6 kg WEIGHT 2023-03-27 06:00:00 46.6 kg HEIGHT 2023-03-25 18:00:00 144.8 cm WEIGHT 2023-03-25 18:00:00 46.6 kg Systolic blood 2021-04-03 20:29:00 147 mm[Hg] [facility] Diastolic blood 2021-04-03 20:29:00 95 mm[Hg] [facility] 2021-04-03 20:29:00 71 /min [facility] Body temperature 2021-04-03 20:29:00 37.11 Maeve [facility] Respiratory rate 2021-04-03 20:29:00 18 /min [facility] Oxygen saturation in 2021-04-03 20:29:00 95 /min [facility] Arterial blood by [facility] Pulse oximetry Branch Body weight 2021-04-02 12:46:00 53.479 kg [facility] BMI 2021-04-02 12:46:00 25.51 kg/m2 [facility] Body height 2021-04-01 21:44:00 144.8 cm [facility] Oxygen saturation in 2023-03-31 16:00:00 94 /min [facility] Arterial blood by Medical nter Pulse oximetry Systolic blood 2023-03-31 16:00:00 124 mm[Hg] [facility] Diastolic blood 2023-03-31 16:00:00 73 mm[Hg] [facility] Heart rate 2023-03-31 16:00:00 125 /min [facility] Body temperature 2023-03-31 16:00:00 37.39 Maeve [facility] Respiratory rate 2023-03-31 16:00:00 18 /min [facility] Body height 2023-03-29 09:59:00 144.8 cm [facility] Body weight 2023-03-29 09:59:00 46.267 kg [facility] BMI 2023-03-29 09:59:00 22.07 kg/m2 [facility] Temperature Oral (F) 2018-01-05 23:00:00 97.4 F [facility] Wanda Systolic (mm Hg) 2018-01-05 23:00:00 Raphael rial Magdy Diastolic (mm Hg) 2018-01-05 23:00:00 Mem orial Magdy Respitory Rate 2018-01-05 23:00:00 Memori al Wanda Systolic (mm Hg) 2018-01-05 22:00:00 Raphael rial Wanda Diastolic (mm Hg) 2018-01-05 22:00:00 Mem orial Wanda Respitory Rate 2018-01-05 22:00:00 Memori al Magdy Systolic (mm Hg) 2018-01-05 21:00:00 Raphael rosario Wanda Diastolic (mm Hg) 2018-01-05 21:00:00 Mem orial Magdy Respitory Rate 2018-01-05 21:00:00 Philomena devine Wanda Temperature Oral (F) 2018-01-05 18:00:00 97.2 F [facility] Wanda Temperature Oral (F) 2018-01-05 14:00:00 97.5 F [facility] Magdy BMI Calculated 2018-01-03 08:37:00 Philomena devine Wanda Weight 2018-01-03 08:37:00 [facility] Wanda Height 2018-01-03 08:37:00 [facility] Calculated 2018-01-03 07:14:00 Philomena devine Wanda Height 2018-01-03 07:14:00 144.78 cm [facility] Wanda Weight 2018-01-03 07:14:00 [facility] Procedures Procedure Date / Time Performing Clinician Source Performed POCT-GLUCOSE METER 2023-03-31 17:47:00 [facility] POCT-GLUCOSE METER 2023-03-31 12:24:00 [facility] CBC (HEMOGRAM ONLY) 2023-03-31 05:11:00 Hermes Cadena [facility] BASIC METABOLIC PANEL 2023-03-31 05:11:00 Hermes Cadena [facility] POCT-GLUCOSE METER 2023-03-30 21:36:[address] [facility] PROCEDURE, IN 2023-03-30 21:30:00 Virtual, Surgeon [facility]-OPERATING ROOM Center SETTING POCT-GLUCOSE METER 2023-03-30 17:52:00 Shemar, [facility] MRA HEAD WITHOUT IV 2023-03-30 12:25:00 Hermes Cadena [facility] Center MRA NECK WITHOUT IV 2023-03-30 12:25:00 Hermes Cadena [facility] CONTRAST Center MR BRAIN WITH & WITHOUT 2023-03-30 12:25:00 Andre Caedna [facility] Center POCT-GLUCOSE METER 2023-03-30 06:12:00 [facility] ([facility] ONLY[facility] 2023-03-30 04:40:00 Civunigunta, Hermes [facility] BASIC METABOLIC PANEL 2023-03-30 04:40:00 [facility] POCT-GLUCOSE METER 2023-03-29 23:59:00 [facility] POCT-GLUCOSE METER 2023-03-29 16:13:00 [place], [facility] POCT-GLUCOSE METER 2023-03-29 12:41:00 [place], [facility] POCT-GLUCOSE METER 2023-03-29 07:40:00 [place], [facility] CBC (HEMOGRAM ONLY) 2023-03-29 04:39:00 Civunigunta, Hermes [facility] BASIC METABOLIC PANEL 2023-03-29 04:39:00 Civunigun[place], [facility] POCT-GLUCOSE METER 2023-03-28 20:45:00 [facility] POCT-GLUCOSE METER 2023-03-28 17:54:00 [facility] POCT-GLUCOSE METER 2023-03-28 12:38:00 Civunigunta, Hermes [facility] POCT-GLUCOSE METER 2023-03-28 07:39:00 [place], [facility] POCT-GLUCOSE METER 2023-03-28 05:26:00 Ivanna Marte [facility] BASIC METABOLIC PANEL 2023-03-28 04:43:00 [facility] CBC W/PLT COUNT & AUTO 2023-03-28 04:43:00 [facility] CBC W/PLT COUNT & AUTO 2023-03-28 04:43:00 Shabana Ramirez [facility] (CELLAVISION MANUAL 2023-03-28 04:43:00 [facility] zieg[facility]) Center ECG 12-LEAD 2023-03-28 03:28:10 Unknown, [facility] ECG 12-LEAD 2023-03-28 03:28:10 Unknown, 7 [facility] ECG 12-LEAD 2023-03-28 03:27:45 Jeremie, Eva Edmond [facility] ECG 12-LEAD 2023-03-28 03:27:45 Unknown, [facility] POCT-GLUCOSE METER 2023-03-27 23:35:00 Ana Patterson [facility] POCT-GLUCOSE METER 2023-03-27 18:16:00 [facility] POCT-GLUCOSE METER 2023-03-27 11:41:00 [facility] POCT-GLUCOSE METER 2023-03-27 07:02:00 [facility] BASIC METABOLIC PANEL 2023-03-27 03:25:00 [place] CBC W/PLT COUNT & AUTO 2023-03-27 03:25:00 [facility] Shabana [facility] CBC W/PLT COUNT & AUTO 2023-03-27 03:25:[address] [facility] Center POCT-GLUCOSE METER 2023-03-26 23:54:00 [facility] CT BRAIN WITHOUT IV 2023-03-26 23:08:00 Yakov Nguyen [facility] CONTRAST Center POCT-GLUCOSE METER 2023-03-26 12:42:00 [facility] VITAMIN B12 2023-03-26 11:35:00 [facility] POTASSIUM 2023-03-26 11:35:00 [facility] MAGNESIUM 2023-03-26 11:35:[address] [facility] [address] BRAIN WITHOUT IV 2023-03-26 04:03:00 [facility] CONTRAST [place] BASIC METABOLIC PANEL 2023-03-26 03:19:00 [place] CBC W/PLT COUNT & AUTO 2023-03-26 03:19:00 [facility] DIFFERENTIAL Center MAGNESIUM 2023-03-26 03:19:00 Lashaun Manzanares [facility] PHOSPHORUS 2023-03-26 03:19:00 Lashaun Manzanares [facility] CBC W/PLT COUNT & AUTO 2023-03-26 03:19:00 Lashaun Manzanares [facility] POCT-GLUCOSE METER 2023-03-25 22:52:00 Enriqueta Paulino [facility] Chethan Padavanapalli [place] APTT 2023-03-25 18:48:00 Lashaun Manzanares [facility] HIGH SENSITIVITY 2023-03-25 18:48:00 [facility] TROPONIN I Center TSH/FREE T4 IF 2023-03-25 18:48:00 [facility] INDICATED Center RPR 2023-03-25 18:48:00 [facility] HC LAB HIV-1 AG 2023-03-25 18:48:00 [facility] W/HIV-1&2 AB Center HEMOGLOBIN A1C 2023-03-25 18:48:00 [facility] LIPID PANEL 2023-03-25 18:48:00 [facility] T4, FREE 2023-03-25 18:48:00 [facility] HEPATIC FUNCTION PANEL 2023-03-25 18:48:00 Lashaun Manzanares [facility] PROTHROMBIN TIME/INR 2023-03-25 18:48:00 ManzanaresLashaun hadley [facility] ECG 12-LEAD 2023-03-25 17:36:04 Shabana Ramirez [facility] ECG 12-LEAD 2023-03-25 17:36:04 Unknown, Hl7 Doctor [facility] BLOOD CULTURE SCREEN 2021-04-03 10:43:[address] [facility] BLOOD CULTURE SCREEN 2021-04-03 10:10:[address] [facility] PHOSPHORUS 2021-04-03 10:10:00 [facility] MAGNESIUM 2021-04-03 10:10:00 [facility] BASIC METABOLIC PANEL 2021-04-03 10:10:00 Sage Lopez [facility] (NA, K, CL, CO2, [facility] GLUCOSE, BUN, CREATININE, CA) CBC WITH DIFF 2021-04-03 10:10:00 [facility] XR ANKLE 3+ VW RIGHT 2021-04-02 17:41:[address] [facility] MAGNESIUM 2021-04-02 09:41:00 [facility] BASIC METABOLIC PANEL 2021-04-02 09:41:00 Sage Lopez [facility] (NA, K, CL, CO2, [facility] GLUCOSE, BUN, CREATININE, CA) CBC WITH DIFF 2021-04-02 09:41:00 [facility] XR HIP 1 VW BILATERAL 2021-04-02 02:10:54 [facility] WHOLE BLOOD 2021-04-01 20:26:00 [facility] ABDOMEN PELVIS W WO 2021-04-01 20:19:52 Sage Lopez [facility] BLOOD CULTURE SCREEN 2021-04-01 18:13:00 Marisel Bolivar [facility] PHOSPHORUS 2021-04-01 18:13:[address] [facility] o [facility] CREATINE KINASE 2021-04-01 18:13:00 Paddy Shea [facility] MAGNESIUM 2021-04-01 18:13:00 [facility] COMP. METABOLIC PANEL 2021-04-01 18:13:00 Marisel Bolivar [facility] ([id number]) [facility] [place] BLOOD CULTURE WORKUP 2021-04-01 18:13:00 Marisel Bolivar [facility] GRAM NEGATIVE BLOOD 2021-04-01 18:13:00 Marisel Bolivar [facility] PATHOGENS DNA [facility] PROBE-ANAEROBIC ASSIGNMENT OF BENEFITS 2021-04-01 17:33:37 Doctor Unassigned, No [facility] NOTICE OF PRIVACY 2021-04-01 17:33:15 Doctor Unassigned, No [facility] PRACTICES Name [facility] CONSENT/REFUSAL FOR 2021-04-01 17:32:51 Doctor Unassigned, No [facility] DIAGNOSIS AND TREATMENT Name [facility] XR CHEST 1 VW 2021-04-01 17:27:37 Marisel Bolivar [facility] CBC WITH DIFF 2021-04-01 17:19:00 Marisel Bolivar [facility] LACTIC ACID WHOLE BLOOD 2021-04-01 17:19:00 Marisel Bolivar [facility] URINALYSIS 2021-04-01 17:18:00 Marisel Bolivar [facility] URINE CULTURE 2021-04-01 17:18:00 Marisel Bolivar [facility] COVID-19 (ID NOW RAPID 2021-04-01 17:18:00 Marisel Bolivar [facility] TESTING) [facility] HB ECG ROUTINE & RHYTHM 2021-04-01 17:14:[address] [facility] Exploration of carpal 2003-10-31 00:00:00 Philomena Iverson tunnel Hysterectomy 1980-10-31 00:00:00 [facility] Arthroplasty of the 1969-10-31 00:00:00 Anamaria Curran ankle Plan of Care Planned Activity Planned Date Details Comments Source Future Scheduled 2026-03-25 Lipid panel (procedure) [facility] Test 00:00:00 [code = 62119852] Medical Ce nter Future Scheduled 2023-07-01 Influenza Vaccine (#1) [facility] 00:00:00 [code = Influenza Medical Ce nter Vaccine (#1)] Future Scheduled 2022-10-[address] [facility] 00:00:00 (12+) [code = Medical Center DEPRESSION SCREENING (12+)] Future Scheduled 2008 SHINGLES VACCINES ([address] [facility] 00:00:00 2) [code = SHINGLES Medical Center VACCINES (1 of 2)] Future Scheduled 1997-03-[address] [facility] [facility] 00:00:00 WELLNESS (YEAR 2 or Medical Center FIRST YEAR if no IPPE) [code = MEDICARE ANNUAL WELLNESS (YEAR 2 or FIRST YEAR if no IPPE)] Future Scheduled 1979 Screening for malignant [facility] Test 00:00:00 neoplasm of cervix Medical C enter (procedure) [code = 877650206] Future Scheduled 1977 DTAP/TDAP/TD VACCINES [facility] 00:00:00 (1 - Tdap) [code = Medical C enter DTAP/TDAP/TD VACCINES (1 - Tdap)] Future Scheduled [address] [facility] Test 00:00:00 Counseling and Medical Cente r Screening (12+) [code = Tobacco Cessation Counseling and Screening (12+)] Future Scheduled 1959-06-14 COVID-19 VACCINE (#1) [facility] 00:00:00 [code = COVID-[address] VACCINE (#1)] Future Scheduled 1958 Screening for malignant [facility] Test 00:00:00 neoplasm of breast Medical C enter (procedure) [code = 002204823] Future Scheduled 1958 CT Colonography (combo) [facility] Test 00:00:00 [code = CT Colonography [facility] (combo)] Future Scheduled 1958 Screening for malignant [facility] Test 00:00:00 neoplasm of colon Medical Ce nter (procedure) [code = 442257133] Future Scheduled 1958 Screening for malignant [facility] Test 00:00:00 neoplasm of colon Medical Ce nter (procedure) [code = 348366344] Future Scheduled 1958 Screening for malignant [facility] Test 00:00:00 neoplasm of colon Medical Ce nter (procedure) [code = 036600711] Future Scheduled 1958 Screening for malignant [facility] Test 00:00:00 neoplasm of colon Medical Ce nter (procedure) [code = 442982107] Future Scheduled 1958 Sigmoidoscopy [code = [facility] S[facility]oscopy] Medical Cente r Encounters Start End Encounter Admission Attending Care Care Encounter Source Date/Time Date/Time Type Type Clinicians Facility Department ID 2023-03-25 2023-03-31 Inpatient ER [facility] Neuro ICU [id number] [facility] 16:43:00 18:41:00 2023-03-25 2023-03-31 Hospital ER Marcia Lerma [facility] [id number] [facility] 16:43[facility] 18:41[facility]00 [facility] 2023-03-30 2023-03-30 Surgery [facility], [facility] [id number] [facility] [address] 13:30:00 13:53:00 Surgeon [facility] 2023-03-30 2023-03-30 Anesthesia [facility], [facility] [id number] [facility] 10:27:00 13:00:00 Event N[facility] 2023-03-25 2023-03-[address] [facility] [id number] 00:00:00 00:00:00 Only [facility] 2021-04-06 2021-04-06 Transition William Emanuel [id number] Univers 00:00:00 00:00:00 of Care Benny Peguero [id number] ity adrián [id number] [facility] [address] 2021-04-01 2021-04-03 Hospital Marisel Bolivar [facility] 1.2.84 0.114 [id number] Univers 12:05:00 17:55:00 Encounter Sage Lopez 350.1.13.10 it[place] [id number] [facility] [address] 2021-04-01 2021-04-01 Emergency X KATT [facility] ERT [id number] Univers 12:05:00 12:05:00 [facility] 2018-01-05 Inpatient Formerly [facility] [id number] Memoria 06:53:00 23:47:00 evie Curran 64 [facility] 2018-01-03 2018-01-05 Inpatient Formerly [facility] [id number] Memoria 06:53:00 23:47:00 evie Martinez [facility] 2018-01-03 2018-01-05 Outpatient Rodriguez, MHPL MHPL [id number] 00:53:00 17:47:00 Ger Martinez Results Test Description Test Time Test Comments Results Result Comments Source POC-Glucose meter 2023-03-31 17:59:34 Test Item Value Reference Range Interpretation Comme nts POC-Glucose Meter (test code = 110 mg/dL 70-110 : TESTED AT [facility] [address] [id number]) [facility], 770 30: Breadman/Techni carol ID = [id number] for Moira Skaggs Lab Interpretation (test code = Normal 30829-8) [facility] [id number] 17:59:34 Test Item Value Reference Range Interpretation Comments POC-GLUCOSE METER 110 mg/dL 70-110 : TESTED A T [facility] [address] (BEAKER) (test code = FABIANA Case [facility], 1538) 89982: Breadman/Techni carol ID = [id number] for An Moira montalvo POCT-GLUCOSE [id number] 12:36:47 Test Item Value Reference Range Interpretation Comments POC-GLUCOSE METER 106 mg/dL 70-110 : TESTED A T [facility] [address] (BEAKER) (test code = [place], 1538) 41585: Breadman/Techni carol ID = [id number] for An Moira montalvo BASIC METABOLIC [id number] 06:00:47 Test Item Value Reference Range Interpretation Comments SODIUM (BEAKER) 138 meq/L 136-145 (test code = 381) POTASSIUM 3.9 meq/L 3.5-5.1 (BEAKER) (test code = 379) CHLORIDE (BEAKER) 102 meq/L 98-107 (test code = 382) CO2 (BEAKER) 25 meq/L 22-29 (test code = 355) BLOOD UREA 7 mg/dL 7-21 NITROGEN (BEAKER) (test code = 354) CREATININE 0.52 mg/dL 0.57-1.25 L (BEAKER) (test code = 358) GLUCOSE RANDOM 113 mg/dL 70-105 H (BEAKER) (test code = 652) CALCIUM (BEAKER) 8.0 mg/dL 8.4-10.2 L (test code = 697) EGFR (BEAKER) 104 Interpretatio n of eGFR (test code = mL/min/1.73 values Stage De scription 1092) sq m Result G1 Dora l or high >=90 G2 Mildly decreased 60-89 G3a Mildl y to moderately 45-5 9 G3b Moderately to s everely 30-44 G4 Severl y decreased 15-29 G5 Kidney failure <15Reported eGF R is based on the CKD-EPI 2020 equation that d oes not use a race coefficientEsti mated GFR is not as accur ate as Creatinine Maura bishop in predicting glom erular filtration rate . Estimated GFR is not appl icable for dialysis patien ts Breadman ID - [id number] (HEMOGRAM ONLY)2023-03-31 05:46:32 Test Item Value Reference Range Interpretation Comments WHITE BLOOD CELL COUNT 13.4 K/ L 3.5-10.5 H (BEAKER) (test code = 775) RED BLOOD CELL COUNT 3.64 M/ L 3.93-5.22 L (BEAKER) (test code = 761) HEMOGLOBIN (BEAKER) 11.5 GM/DL 11.2-15.7 (test code = 410) HEMATOCRIT (BEAKER) 36.0 % 34.1-44.9 (test code = 411) MEAN CORPUSCULAR 99 fL 79-95 H Discordant results VOLUME (BEAKER) (test compar ed to previous code = 753) results; clinic al correlation req uired MEAN CORPUSCULAR 31.6 pg 25.6-32.2 HEMOGLOBIN (BEAKER) (test code = 751) MEAN CORPUSCULAR 31.9 GM/DL 32.2-35.5 L HEMOGLOBIN CONC (BEAKER) (test code = 752) RED CELL DISTRIBUTION 12.5 % 11.7-14.4 WIDTH (BEAKER) (test code = 412) PLATELET COUNT 241 K/CU MM 150-450 (BEAKER) (test code = 756) MEAN PLATELET VOLUME 10.7 fL 9.4-12.3 (BEAKER) (test code = 754) NUCLEATED RED BLOOD 0 /100 WBC 0-0 CELLS (BEAKER) (test code = 413) POCT-GLUCOSE [id number] 21:48:06 Test Item Value Reference Range Interpretation Comments POC-GLUCOSE METER 96 mg/dL 70-110 : TESTED A T [facility] 6720 (BEAKER) (test code = [facility], 1538) [id number]: Breadman/Techni carol ID = [id number] for BRAVO ESCOBAR POCT-GLUCOSE [id number] 18:04:01 Test Item Value Reference Range Interpretation Comments POC-GLUCOSE METER 91 mg/dL 70-110 : TESTED A T [facility] [address] (BEAKER) (test code = [facility], 1538) [id number]: Breadman/Techni carol ID = [id number] for Ambika Hickey MR, MRA, BRAIN, WITHOUT [id number] 12:55:00Add SWI for CAA eval WITH GENERAL ANESTHESIA Unlisted Reason for Exam - Click Yes and Enter Reason Below- >Yes Unlisted Reason for Exam->traumatic ICH, eval for underlying pathologyMENIFEE GLOBAL MEDICAL CENTERName: RICK [facility]ATH[facility] : 1960 Sex: FFINAL REPORT MR, BRAIN, WITH \\T\\ WITHOUT CONTRAST, MR, MRA, NECK, WITHOUT IV CONTRAST, MR, MRA, BRAIN, WITHOUT CONTRAST INDICATION: Head trauma, intracranial arterial injury suspectedUnlisted Reason for Exam; traumatic ICH, eval for other underlying pathology TECHNIQUE: Multiplanar, multisequence MR images of the brain. 3-D time of flight MRA of the cranial and cervical circulation. 2-D time of flight MRA of the neck. 3D MIP angiographic post- processing was performed. Stenosis evaluationutilized NASCET criteria. COMPARISON: 03/26/2023 FINDINGS: MRI BRAIN: Unchanged appearance of previously described intraparenchymal hematoma within the right parietal lobe, which measures up to 4.8 cm. There is mild localized mass effect without midline shift or herniation. Scattered additional foci ofsusceptibility throughout the right cerebral hemisphere, presumably related to the aforementioned primary hematoma. No new acute intracranial hemorrhage. No restricted diffusion to suggest recent infarct. No enhancing intracranial metastases. No abnormal parenchymal enhancement. Scattered T2/FLAIR hyperintense foci within the periventricular and subcortical white matter are nonspecific, however, statistically represent chronic microvascular ischemic changes. No hydrocephalus. Orbits are within normal limits. No obstructive paranasal sinus disease. 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 MRA BRAIN:Internal carotid arteries: Normal flow related enhancementwithout flow- limiting stenosisMiddle cerebral arteries: Normal flow related enhancement within the bilateral MCA M1-M2 segments Anterior cerebral arteries: Normal flow- related enhancement within the bilateral KEVON A1-A2 segments without flow limiting stenosisBasilar system: Normal flow-related enhancement within the bilateral V4 segments and the basilar artery Posterior cerebral arteries: Multiple areas of short segment moderate atherosclerotic stenosis of the right posterior cerebral artery. 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 Additional findings: None. MRA NECK:Common carotid arteries: Unremarkable. Cervical internal carotid arteries: 50% stenosis of the left proximal ICA by NASCET criteria. No flow limiting stenosis.Vertebral arteries: Origins are not well- seen. No flow limiting stenosis within the visualized cervical vertebral arterial segments. Limited assessment of the V3 segment secondary to noncontrast technique. IMPRESSION: 1.Unchanged appearance of previously described intraparenchymal hematoma within the right parietal lobe, which measures up to 4.8 cm. There is mild localized mass effect without midline shift or herniation. Scattered additional foci of susceptibility throughout the right cerebral hemisphere, presumably related to the aforementioned primary hematoma.2.No new acute intracranial hemorrhage.3.No enhancing intracranial metastases. No abnormal parenchymal enhancement.4.50% stenosis of the left proximal ICA by NASCET criteria.5.Multiple short segment areas of moderate atherosclerotic stenosis of the right posterior cerebral artery. Signed: Mikayla Song MDReport Verified Date/Time: 03/30/2023 12:55:12 MR, MRA, NECK, WITHOUT IV [id number] 12:55:00WITH GENERAL ANESTHESIA Unlisted Reason for Exam - Click Yes and Enter Reason Below->Yes UnlistedReason for Exam->traumatic ICH, eval for underlying pathology Does the patient have an implanted electronic device?->NoMENIFEE GLOBAL [facility]ENTERName: RICK MATHUR : 1960 Sex: FFINAL REPORT MR, BRAIN, WITH \\T\\ WITHOUT CONTRAST, MR, MRA, NECK, WITHOUT IV CONTRAST, MR, MRA, BRAIN, WITHOUT CONTRAST INDICATION: Head trauma, intracranial arterial injury suspectedUnlisted Reason for Exam; traumatic ICH, eval for other underlying pathology TECHNIQUE: Multiplanar, multisequence MR images of the brain. 3-D time of flight MRA of the cranial and cervical circulation. 2-D time of flight MRA of the neck. 3D MIP angiographic post- processing was performed. Stenosis evaluationutilized NASCET criteria. COMPARISON: 03/26/2023 FINDINGS: MRI BRAIN: Unchanged appearance of previously described intraparenchymal hematoma within the right parietal lobe, which measures up to 4.8 cm. There is mild localized mass effect without midline shift or herniation. Scattered additional foci ofsusceptibility throughout the right cerebral hemisphere, presumably related to the aforementioned primary hematoma. No new acute intracranial hemorrhage. No restricted diffusion to suggest recent infarct. No enhancing intracranial metastases. No abnormal parenchymal enhancement. Scattered T2/FLAIR hyperintense foci within the periventricular and subcortical white matter are nonspecific, however, statistically represent chronic microvascular ischemic changes. No hydrocephalus. Orbits are within normal limits. No obstructive paranasal sinus disease. 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 MRA BRAIN:Internal carotid arteries: Normal flow related enhancementwithout flow- limiting stenosisMiddle cerebral arteries: Normal flow related enhancement within the bilateral MCA M1-M2 segments Anterior cerebral arteries: Normal flow- related enhancement within the bilateral KEVON A1-A2 segments without flow limiting stenosisBasilar system: Normal flow-related enhancement within the bilateral V4 segments and the basilar artery Posterior cerebral arteries: Multiple areas of short segment moderate atherosclerotic stenosis of the right posterior cerebral artery. 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 Additional findings: None. MRA NECK:Common carotid arteries: Unremarkable. Cervical internal carotid arteries: 50% stenosis of the left proximal ICA by NASCET criteria. No flow limiting stenosis.Vertebral arteries: Origins are not well- seen. No flow limiting stenosis within the visualized cervical vertebral arterial segments. Limited assessment of the V3 segment secondary to noncontrast technique. IMPRESSION: 1.Unchanged appearance of previously described intraparenchymal hematoma within the right parietal lobe, which measures up to 4.8 cm. There is mild localized mass effect without midline shift or herniation. Scattered additional foci of susceptibility throughout the right cerebral hemisphere, presumably related to the aforementioned primary hematoma.2.No new acute intracranial hemorrhage.3.No enhancing intracranial metastases. No abnormal parenchymal enhancement.4.50% stenosis of the left proximal ICA by NASCET criteria.5.Multiple short segment areas of moderate atherosclerotic stenosis of the right posterior cerebral artery. Signed: Mikayla Song MDReport Verified Date/Time: 03/30/2023 12:55:12 MR, BRAIN, [id number] 12:55:00 Add SWI imaging for eval of CAA WITH General anesthesia Unlisted Reason for Exam - Click Yes and Enter Reason Below->Yes Unlisted Reason for Exam- >traumatic ICH, eval for other underlying pathology Does the patient have an implanted electronic device?->No [facility] : 1960 Sex: FFINAL REPORT MR, BRAIN, WITH \\T\\ WITHOUT CONTRAST, MR, MRA, NECK, WITHOUT IV CONTRAST, MR, MRA, BRAIN, WITHOUT CONTRAST INDICATION: Head trauma, intracranial arterial injury suspectedUnlisted Reason for Exam; traumatic ICH, eval for other underlying pathology TECHNIQUE: Multiplanar, multisequence MR images of the brain. 3-D time of flight MRA of the cranial and cervical circulation. 2-D time of flight MRA of the neck. 3D MIP angiographic post- processing was performed. Stenosis evaluationutilized NASCET criteria. COMPARISON: 03/26/2023 FINDINGS: MRI BRAIN: Unchanged appearance of previously described intraparenchymal hematoma within the right parietal lobe, which measures up to 4.8 cm. There is mild localized mass effect without midline shift or herniation. Scattered additional foci ofsusceptibility throughout the right cerebral hemisphere, presumably related to the aforementioned primary hematoma. No new acute intracranial hemorrhage. No restricted diffusion to suggest recent infarct. No enhancing intracranial metastases. No abnormal parenchymal enhancement. Scattered T2/FLAIR hyperintense foci within the periventricular and subcortical white matter are nonspecific, however, statistically represent chronic microvascular ischemic changes. No hydrocephalus. Orbits are within normal limits. No obstructive paranasal sinus disease. 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 MRA BRAIN:Internal carotid arteries: Normal flow related enhancementwithout flow- limiting stenosisMiddle cerebral arteries: Normal flow related enhancement within the bilateral MCA M1-M2 segments Anterior cerebral arteries: Normal flow- related enhancement within the bilateral KEVON A1-A2 segments without flow limiting stenosisBasilar system: Normal flow-related enhancement within the bilateral V4 segments and the basilar artery Posterior cerebral arteries: Multiple areas of short segment moderate atherosclerotic stenosis of the right posterior cerebral artery. 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 Additional findings: None. MRA NECK:Common carotid arteries: Unremarkable. Cervical internal carotid arteries: 50% stenosis of the left proximal ICA by NASCET criteria. No flow limiting stenosis.Vertebral arteries: Origins are not well- seen. No flow limiting stenosis within the visualized cervical vertebral arterial segments. Limited assessment of the V3 segment secondary to noncontrast technique. IMPRESSION: 1.Unchanged appearance of previously described intraparenchymal hematoma within the right parietal lobe, which measures up to 4.8 cm. There is mild localized mass effect without midline shift or herniation. Scattered additional foci of susceptibility throughout the right cerebral hemisphere, presumably related to the aforementioned primary hematoma.2.No new acute intracranial hemorrhage.3.No enhancing intracranial metastases. No abnormal parenchymal enhancement.4.50% stenosis of the left proximal ICA by NASCET criteria.5.Multiple short segment areas of moderate atherosclerotic stenosis of the right posterior cerebral artery. Signed: Mikayla Song MDReport Verified Date/Time: 03/30/2023 12:55:12 POCT-GLUCOSE [id number] 06:24:46 Test Item Value Reference Range Interpretation Comments POC-GLUCOSE METER 114 mg/dL 70-110 H : TESTED A T [facility] 6720 (BEAKER) (test code [facility], = 1538) 38630: Breadman/Techni carol ID = [id number] for Aristeo Weiner BASIC METABOLIC [id number] 05:26:59 Test Item Value Reference Range Interpretation Comments SODIUM (BEAKER) 139 meq/L 136-145 (test code = 381) POTASSIUM 3.8 meq/L 3.5-5.1 (BEAKER) (test code = 379) CHLORIDE (BEAKER) 104 meq/L 98-107 (test code = 382) CO2 (BEAKER) 26 meq/L 22-29 (test code = 355) BLOOD UREA 9 mg/dL 7-21 NITROGEN (BEAKER) (test code = 354) CREATININE 0.49 mg/dL 0.57-1.25 L (BEAKER) (test code = 358) GLUCOSE RANDOM 138 mg/dL 70-105 H (BEAKER) (test code = 652) CALCIUM (BEAKER) 8.2 mg/dL 8.4-10.2 L (test code = 697) EGFR (BEAKER) 105 Interpretatio n of eGFR (test code = mL/min/1.73 values Stage De scription 1092) sq m Result G1 Dora l or high >=90 G2 Mildly decreased 60-89 G3a Mildl y to moderately 45-5 9 G3b Moderately to s everely 30-44 G4 Severl y decreased 15-29 G5 Kidney failure <15Reported eGF R is based on the CKD-EPI 2020 equation that d oes not use a race coefficientEsti mated GFR is not as accur ate as Creatinine Maura dario in predicting glom erular filtration rate . Estimated GFR is not appl icable for dialysis patien ts Breadman ID - MARCOCBC (HEMOGRAM ONLY)2023-03-30 05:16:25 Test Item Value Reference Range Interpretation Comments WHITE BLOOD CELL COUNT (BEAKER) 8.1 K/ L 3.5-10.5 (test code = 775) RED BLOOD CELL COUNT (BEAKER) 3.87 M/ L 3.93-5.22 L (test code = 761) HEMOGLOBIN (BEAKER) (test code = 12.1 GM/DL 11.2-15.7 410) HEMATOCRIT (BEAKER) (test code = 36.6 % 34.1-44.9 411) MEAN CORPUSCULAR VOLUME (BEAKER) 95 fL 79-95 (test code = 753) MEAN CORPUSCULAR HEMOGLOBIN 31.3 pg 25.6-32.2 (BEAKER) (test code = 751) MEAN CORPUSCULAR HEMOGLOBIN CONC 33.1 GM/DL 32.2-35.5 (BEAKER) (test code = 752) RED CELL DISTRIBUTION WIDTH 12.3 % 11.7-14.4 (BEAKER) (test code = 412) PLATELET COUNT (BEAKER) (test 231 K/CU MM 150-450 code = 756) MEAN PLATELET VOLUME (BEAKER) 10.3 fL 9.4-12.3 (test code = 754) NUCLEATED RED BLOOD CELLS 0 /100 WBC 0-0 (BEAKER) (test code = 413) POCT-GLUCOSE [id number] 00:11:18 Test Item Value Reference Range Interpretation Comments POC-GLUCOSE METER 151 mg/dL 70-110 H : TESTED A T [facility] 6720 (BEAKER) (test code [facility], = 1538) 23368: Breadman/Techni carol ID = [id number] for Aristeo Weiner POCT-GLUCOSE [id number] 16:27:51 Test Item Value Reference Range Interpretation Comments POC-GLUCOSE METER 101 mg/dL 70-110 : TESTED A T [facility] 6720 (BEAKER) (test code = [facility], 1538) 58835: Breadman/Techni carol ID = [id number] for MICHAEL SPARKSINEJimmy, KENNETH POCT-GLUCOSE [id number] 12:52:15 Test Item Value Reference Range Interpretation Comments POC-GLUCOSE METER 208 mg/dL 70-110 H : TESTED A T [facility] 6720 (BEAKER) (test code = [facility], 1538) 18710: Breadman/Techni carol ID = [id number] for MICHAEL SPARKSINEJimmy, KENNETH POCT-GLUCOSE [id number] 07:58:56 Test Item Value Reference Range Interpretation Comments POC-GLUCOSE METER 107 mg/dL 70-110 : TESTED A T [facility] 6720 (BEAKER) (test code = [facility], 1538) 34865: Breadman/Techni carol ID = [id number] for MA RTINEZ, KENNETH CBC (HEMOGRAM ONLY)2023-03-29 06:55:32 Test Item Value Reference Range Interpretation Comments WHITE BLOOD CELL COUNT (BEAKER) 10.4 K/ L 3.5-10.5 (test code = 775) RED BLOOD CELL COUNT (BEAKER) 4.04 M/ L 3.93-5.22 (test code = 761) HEMOGLOBIN (BEAKER) (test code = 13.0 GM/DL 11.2-15.7 410) HEMATOCRIT (BEAKER) (test code = 38.8 % 34.1-44.9 411) MEAN CORPUSCULAR VOLUME (BEAKER) 96 fL 79-95 H (test code = 753) MEAN CORPUSCULAR HEMOGLOBIN 32.2 pg 25.6-32.2 (BEAKER) (test code = 751) MEAN CORPUSCULAR HEMOGLOBIN CONC 33.5 GM/DL 32.2-35.5 (BEAKER) (test code = 752) RED CELL DISTRIBUTION WIDTH 12.3 % 11.7-14.4 (BEAKER) (test code = 412) PLATELET COUNT (BEAKER) (test 236 K/CU MM 150-450 code = 756) MEAN PLATELET VOLUME (BEAKER) 11.1 fL 9.4-12.3 (test code = 754) NUCLEATED RED BLOOD CELLS 0 /100 WBC 0-0 (BEAKER) (test code = 413) BASIC METABOLIC [id number] 05:28:55 Test Item Value Reference Range Interpretation Comments SODIUM (BEAKER) 133 meq/L 136-145 L (test code = 381) POTASSIUM 3.6 meq/L 3.5-5.1 (BEAKER) (test code = 379) CHLORIDE (BEAKER) 97 meq/L 98-107 L (test code = 382) CO2 (BEAKER) 25 meq/L 22-29 (test code = 355) BLOOD UREA 10 mg/dL 7-21 NITROGEN (BEAKER) (test code = 354) CREATININE 0.53 mg/dL 0.57-1.25 L (BEAKER) (test code = 358) GLUCOSE RANDOM 106 mg/dL 70-105 H (BEAKER) (test code = 652) CALCIUM (BEAKER) 8.8 mg/dL 8.4-10.2 (test code = 697) EGFR (BEAKER) 103 Interpretatio n of eGFR (test code = mL/min/1.73 values Stage De scription 1092) sq m Result G1 Dora l or high >=90 G2 Mildly decreased 60-89 G3a Mildl y to moderately 45-5 9 G3b Moderately to s everely 30-44 G4 Severl y decreased 15-29 G5 Kidney failure <15Reported eGF R is based on the CKD-EPI 2020 equation that d oes not use a race coefficientEsti mated GFR is not as accur ate as Creatinine Maura dario in predicting glom erular filtration rate . Estimated GFR is not appl icable for dialysis patien ts Breadman ID - JSPOCT-GLUCOSE [id number] 20:57:25 Test Item Value Reference Range Interpretation Comments POC-GLUCOSE METER 141 mg/dL 70-110 H : TESTED A T [facility] 6720 (BEAKER) (test code [facility], = 1538) 11873: Breadman/Techni carol ID = [id number] for Aristeo Weiner POCT-GLUCOSE [id number] 18:06:07 Test Item Value Reference Range Interpretation Comments POC-GLUCOSE METER 96 mg/dL 70-110 : TESTED A T [facility] 6720 (BEAKER) (test code = [place] Case [facility], 1538) 94737: Breadman/Techni carol ID = [id number] for KENNETH MCKINNEY [id number] 13:15:29 Test Item Value Reference Range Interpretation Comments RPR SCREEN (BEAKER) (test code = Nonreactive Nonreactive 420) POCT-GLUCOSE [id number] 12:53:54 Test Item Value Reference Range Interpretation Comments POC-GLUCOSE METER 105 mg/dL 70-110 : TESTED A T [facility] 6720 (BEAKER) (test code = [facility] Evie [facility], 1538) 42947: Breadman/Techni carol ID = [id number] for KENNETH GRAY (CELLAVISION MANUAL DIFF)2023-03-28 09:05:17 Test Item Value Reference Range Interpretation Comments NEUTROPHILS - REL 74 % (CELLAVISION)(BEAKER) (test code = 2816) LYMPHOCYTES - REL 11 % (CELLAVISION)(BEAKER) (test code = 2817) MONOCYTES - REL 14 % (CELLAVISION)(BEAKER) (test code = 2818) EOSINOPHILS - REL 1 % (CELLAVISION)(BEAKER) (test code = 2819) NEUTROPHILS - ABS 7.92 K/ul 1.56-6.13 H (CELLAVISION)(BEAKER) (test code = 2830) LYMPHOCYTES - ABS 1.18 K/ul 1.18-3.74 (CELLAVISION)(BEAKER) (test code = 2831) MONOCYTES - ABS 1.50 K/uL 0.24-0.36 H (CELLAVISION)(BEAKER) (test code = 2832) EOSINOPHILS - ABS 0.11 K/uL 0.04-0.36 (CELLAVISION)(BEAKER) (test code = 2834) TOTAL COUNTED (BEAKER) (test code = 100 1351) RBC MORPHOLOGY (BEAKER) (test code Normal = 762) WBC MORPHOLOGY (BEAKER) (test code Normal = 487) PLT MORPHOLOGY (BEAKER) (test code Normal = 486) POCT-GLUCOSE [id number] 07:51:59 Test Item Value Reference Range Interpretation Comments POC-GLUCOSE METER 111 mg/dL 70-110 H : TESTED A T [facility] 6720 (BEAKER) (test code = [place], 1538) [id number]: Breadman/Techni carol ID = [id number] for KENNETH GRAY BASIC METABOLIC [id number] 05:53:57 Test Item Value Reference Range Interpretation Comments SODIUM (BEAKER) 136 meq/L 136-145 (test code = 381) POTASSIUM 4.0 meq/L 3.5-5.1 (BEAKER) (test code = 379) CHLORIDE (BEAKER) 99 meq/L 98-107 (test code = 382) CO2 (BEAKER) 22 meq/L 22-29 (test code = 355) BLOOD UREA 6 mg/dL 7-21 L NITROGEN (BEAKER) (test code = 354) CREATININE 0.50 mg/dL 0.57-1.25 L (BEAKER) (test code = 358) GLUCOSE RANDOM 80 mg/dL 70-105 (BEAKER) (test code = 652) CALCIUM (BEAKER) 8.5 mg/dL 8.4-10.2 (test code = 697) EGFR (BEAKER) 105 Interpretatio n of eGFR (test code = mL/min/1.73 values Stage De scription 1092) sq m Result G1 Dora l or high >=90 G2 Mildly decreased 60-89 G3a Mildl y to moderately 45-5 9 G3b Moderately to s everely 30-44 G4 Severl y decreased 15-29 G5 Kidney failure <15Reported eGF R is based on the CKD-EPI 2020 equation that d oes not use a race coefficientEsti mated GFR is not as accur ate as Creatinine Maura bishop in predicting glom erular filtration rate . Estimated GFR is not appl icable for dialysis patien ts Breadman ID - BRAVO WPOCT-GLUCOSE [id number] 05:38:54 Test Item Value Reference Range Interpretation Comments POC-GLUCOSE METER 105 mg/dL 70-110 : TESTED A T [facility] 6720 (BEAKER) (test code = FAB[place] Case [place], 1538) 29255: Breadman/Techni carol ID = [id number] for KORINA STRICKLAND CBC W/PLT COUNT & AUTO [id number] 05:24:09 Test Item Value Reference Range Interpretation Comments WHITE BLOOD CELL COUNT (BEAKER) 10.7 K/ L 3.5-10.5 H (test code = 775) RED BLOOD CELL COUNT (BEAKER) 4.09 M/ L 3.93-5.22 (test code = 761) HEMOGLOBIN (BEAKER) (test code = 13.1 GM/DL 11.2-15.7 410) HEMATOCRIT (BEAKER) (test code = 39.2 % 34.1-44.9 411) MEAN CORPUSCULAR VOLUME (BEAKER) 96 fL 79-95 H (test code = 753) MEAN CORPUSCULAR HEMOGLOBIN 32.0 pg 25.6-32.2 (BEAKER) (test code = 751) MEAN CORPUSCULAR HEMOGLOBIN CONC 33.4 GM/DL 32.2-35.5 (BEAKER) (test code = 752) RED CELL DISTRIBUTION WIDTH 12.2 % 11.7-14.4 (BEAKER) (test code = 412) PLATELET COUNT (BEAKER) (test 221 K/CU MM 150-450 code = 756) MEAN PLATELET VOLUME (BEAKER) 11.1 fL 9.4-12.3 (test code = 754) NUCLEATED RED BLOOD CELLS 0 /100 WBC 0-0 (BEAKER) (test code = 413) POCT-GLUCOSE [id number] 23:50:00 Test Item Value Reference Range Interpretation Comments POC-GLUCOSE METER 97 mg/dL 70-110 : TESTED A T [facility] 6720 (BEAKER) (test code = [place], 1538) [address]: Breadman/Techni carol ID = [id number] for KORINA STEWART POCT-GLUCOSE [id number] 18:44:33 Test Item Value Reference Range Interpretation Comments POC-GLUCOSE METER 94 mg/dL 70-110 : TESTED A T [facility] 6720 (BEAKER) (test code = [facility], 1538) 53780: Breadman/Techni carol ID = [id number] for Moira Roblero POCT-GLUCOSE [id number] 12:16:03 Test Item Value Reference Range Interpretation Comments POC-GLUCOSE METER 99 mg/dL 70-110 : TESTED A T [facility] 6720 (BEAKER) (test code = [facility], 1538) 64662: Breadman/Techni carol ID = [id number] for BRIAN LOVELL POCT-GLUCOSE [id number] 07:26:24 Test Item Value Reference Range Interpretation Comments POC-GLUCOSE METER 102 mg/dL 70-110 : TESTED A T [facility] 6720 (BEAKER) (test code = [facility], 1538) 79277: Breadman/Techni carol ID = [id number] for MAGALI MCELROY BASIC METABOLIC [id number] 04:10:01 Test Item Value Reference Range Interpretation Comments SODIUM (BEAKER) 134 meq/L 136-145 L (test code = 381) POTASSIUM 3.4 meq/L 3.5-5.1 L (BEAKER) (test code = 379) CHLORIDE (BEAKER) 101 meq/L 98-107 (test code = 382) CO2 (BEAKER) 24 meq/L 22-29 (test code = 355) BLOOD UREA 7 mg/dL 7-21 NITROGEN (BEAKER) (test code = 354) CREATININE 0.48 mg/dL 0.57-1.25 L (BEAKER) (test code = 358) GLUCOSE RANDOM 88 mg/dL 70-105 (BEAKER) (test code = 652) CALCIUM (BEAKER) 8.0 mg/dL 8.4-10.2 L (test code = 697) EGFR (BEAKER) 106 Interpretatio n of eGFR (test code = mL/min/1.73 values Stage De scription 1092) sq m Result G1 Dora l or high >=90 G2 Mildly decreased 60-89 G3a Mild ly to moderately 45-5 9 G3b Moderately to s everely 30-44 G4 Severl y decreased 15-29 G5 Kidney failure <15Reported eGF R is based on the CKD-EPI 2020 equation that d oes not use a race coefficientEsti mated GFR is not as accur ate as Creatinine Maura bishop in predicting glom erular filtration rate . Estimated GFR is not appl icable for dialysis patien ts Breadman ID - BVCBC W/PLT COUNT & AUTO [id number] 03:37:56 Test Item Value Reference Range Interpretation Comments WHITE BLOOD CELL COUNT (BEAKER) 9.9 K/ L 3.5-10.5 (test code = 775) RED BLOOD CELL COUNT (BEAKER) 3.73 M/ L 3.93-5.22 L (test code = 761) HEMOGLOBIN (BEAKER) (test code = 11.9 GM/DL 11.2-15.7 410) HEMATOCRIT (BEAKER) (test code = 36.3 % 34.1-44.9 411) MEAN CORPUSCULAR VOLUME (BEAKER) 97 fL 79-95 H (test code = 753) MEAN CORPUSCULAR HEMOGLOBIN 31.9 pg 25.6-32.2 (BEAKER) (test code = 751) MEAN CORPUSCULAR HEMOGLOBIN CONC 32.8 GM/DL 32.2-35.5 (BEAKER) (test code = 752) RED CELL DISTRIBUTION WIDTH 12.4 % 11.7-14.4 (BEAKER) (test code = 412) PLATELET COUNT (BEAKER) (test 191 K/CU MM 150-450 code = 756) MEAN PLATELET VOLUME (BEAKER) 10.3 fL 9.4-12.3 (test code = 754) NUCLEATED RED BLOOD CELLS 0 /100 WBC 0-0 (BEAKER) (test code = 413) NEUTROPHILS RELATIVE PERCENT 77 % (BEAKER) (test code = 429) LYMPHOCYTES RELATIVE PERCENT 10 % (BEAKER) (test code = 430) MONOCYTES RELATIVE PERCENT 11 % (BEAKER) (test code = 431) EOSINOPHILS RELATIVE PERCENT 1 % (BEAKER) (test code = 432) BASOPHILS RELATIVE PERCENT 0 % (BEAKER) (test code = 437) NEUTROPHILS ABSOLUTE COUNT 7.63 K/ L 1.56-6.13 H (BEAKER) (test code = 670) LYMPHOCYTES ABSOLUTE COUNT 0.98 K/ L 1.18-3.74 L (BEAKER) (test code = 414) MONOCYTES ABSOLUTE COUNT (BEAKER) 1.09 K/ L 0.24-0.36 H (test code = 415) EOSINOPHILS ABSOLUTE COUNT 0.08 K/ L 0.04-0.36 (BEAKER) (test code = 416) BASOPHILS ABSOLUTE COUNT (BEAKER) 0.03 K/ L 0.01-0.08 (test code = 417) IMMATURE GRANULOCYTES-RELATIVE 0.60 % 0.00-1.00 PERCENT (BEAKER) (test code = 2801) CT, BRAIN, WITHOUT [id number] 00:09:00Reason for Exam (Free Text) - Addiitonal information for Radiologist->ICH, now change in exam [facility] 1960 Sex: FFINAL REPORT CLINICAL HISTORY: Unlisted Reason for Exam, intracranial hemorrhage, now change in exam COMPARISON: Same date at 0358 hours Multiple axial images of the brain were performed without IV contrast. This exam was performed according to our departmental dose-optimization program, which includes automated exposure control, adjustment of the mA and/or kV according to patient size and/or use of the iterative reconstruction technique. There is a stable size and appearance of a right parietal parenchymal hematoma measuring 3.9 x 2.1 x 2.9 cm with adjacent parenchymal edema and trace adjacent subarachnoid blood. Adjacent parenchymal edema is stable from previous, as is local mass effect. There is no or intraventricular extension of blood products. There is no hydrocephalus. There isno midline shift. The paranasal sinuses, orbits, skull base and cranium are unremarkable. IMPRESSION: No significant interval change in the size or appearance of a right parietal parenchymal hematoma with trace adjacent subarachnoid blood and adjacent edema with local mass effect. Please note that CT is insensitive in the detection of acute ischemia. Signed: Eren Tanner MDReport Verified Date/Time:03/27/2023 00:09:36 POCT- GLUCOSE [id number] 00:08:34 Test Item Value Reference Range Interpretation Comments POC-GLUCOSE METER 91 mg/dL 70-110 : TESTED A T [facility] 6720 (BEAKER) (test code = FABIANA Case [facility], 1538) 8[address]: Breadman/Techni carol ID = [id number] for MAGALI COOK VITAMIN [id number] 12:58:11 Test Item Value Reference Range Interpretation Comments VITAMIN B12 (BEAKER) (test code = 1676 pg/mL 213-816 H 774) Breadman ID - MARCOPOCT-GLUCOSE [id number] 12:55:00 Test Item Value Reference Range Interpretation Comments POC-GLUCOSE METER 101 mg/dL 70-110 : TESTED A T [facility] 6720 (BEAKER) (test code [facility], = 1538) 93335: Breadman/Techni carol ID = [id number] for Irais Flowers [id number] 12:25:25 Test Item Value Reference Range Interpretation Comments MAGNESIUM (BEAKER) (test code = 2.1 mg/dL 1.6-2.6 627) Breadman ID - [id number] 12:25:25 Test Item Value Reference Range Interpretation Comments POTASSIUM (BEAKER) (test code = 4.0 meq/L 3.5-5.1 379) Breadman ID - MARCOHEMOGLOBIN [id number] 11:00:59 Test Item Value Reference Range Interpretation Comments HEMOGLOBIN A1C 5.4 % See_Comment [Automated m essage] ELECTROPHORESIS (BEAKER) The system which (test code = 3811) generated this result transmitted ref erence range: <=5.6%. The reference range was not used to int erpret this result as normal/abnormal . "The A1c is measured using a NGSP-certified method. HbA1c value equal to or greater than 6.5% as thediagnosis cutoff for diabetes. An HbA1c value of 5.7- 6.4% indicates increased risk for diabetes (prediabetes)."Breadman ID - ADMOperator ID - ADMCT, BRAIN, WITHOUT [id number] 07:15:00 [facility] : 1960 Sex: FFINAL REPORT CT Head without contrast CLINICAL HISTORY: Stroke, follow up TECHNIQUE: Contiguous axial CT images through the head without contrast. This exam was performed according to the departmental dose optimization program which includes automated exposure control, adjustment of the mA and/or kV according to the patient size, and/or use of an iterative reconstruction technique. COMPAR BRENDAN: None FINDINGS: There is a right perirolandic hematoma measuring 4.0 cm TV x 2.4 cm AP x 3.3 cmCC with a volume of 16 cc. There is prominent surrounding edema with local mass effect. There is no significant midline shift. There is no hydrocephalus. There are no extra-axial fluid collections. Theskull is intact. The visualized paranasal sinuses are well-aerated. IMPRESSION: Right perirolandic parenchymal hemorrhage with surrounding edema. Comparison with outside imaging and attention on follow-up is recommended. Signed: Niall Harmon MDReport Verified Date/Time: 03/26/2023 07:15:21 [id number] 04:07:52 Test Item Value Reference Range Interpretation Comments MAGNESIUM (BEAKER) (test code = 1.6 mg/dL 1.6-2.6 627) Breadman ID - [id number] 04:07:52 Test Item Value Reference Range Interpretation Comments PHOSPHORUS (BEAKER) (test code = 1.6 mg/dL 2.3-4.7 L 604) Breadman ID - BSBASIC METABOLIC [id number] 04:07:51 Test Item Value Reference Range Interpretation Comments SODIUM (BEAKER) 136 meq/L 136-145 (test code = 381) POTASSIUM 3.3 meq/L 3.5-5.1 L (BEAKER) (test code = 379) CHLORIDE (BEAKER) 104 meq/L 98-107 (test code = 382) CO2 (BEAKER) 22 meq/L 22-29 (test code = 355) BLOOD UREA 12 mg/dL 7-21 NITROGEN (BEAKER) (test code = 354) CREATININE 0.54 mg/dL 0.57-1.25 L (BEAKER) (test code = 358) GLUCOSE RANDOM 93 mg/dL 70-105 (BEAKER) (test code = 652) CALCIUM (BEAKER) 8.3 mg/dL 8.4-10.2 L (test code = 697) EGFR (BEAKER) 103 Interpretatio n of eGFR (test code = mL/min/1.73 values Stage D escription 1092) sq m Result G1 Dora l or high >=90 G2 Mildly decreased 60-89 G3a Mildl y to moderately 45-5 9 G3b Moderately to s everely 30-44 G4 Severl y decreased 15-29 G5 Kidney failure <15Reported eGF R is based on the CKD-EPI 2021 equation that d oes not use a race coefficientEsti mated GFR is not as accur ate as Creatinine Maura bishop in predicting glom erular filtration rate . Estimated GFR is not appl icable for dialysis patien ts Breadman ID - BSCBC W/PLT COUNT & AUTO [id number] 03:46:04 Test Item Value Reference Range Interpretation Comments WHITE BLOOD CELL COUNT (BEAKER) 8.6 K/ L 3.5-10.5 (test code = 775) RED BLOOD CELL COUNT (BEAKER) 3.75 M/ L 3.93-5.22 L (test code = 761) HEMOGLOBIN (BEAKER) (test code = 11.9 GM/DL 11.2-15.7 410) HEMATOCRIT (BEAKER) (test code = 35.5 % 34.1-44.9 411) MEAN CORPUSCULAR VOLUME (BEAKER) 95 fL 79-95 (test code = 753) MEAN CORPUSCULAR HEMOGLOBIN 31.7 pg 25.6-32.2 (BEAKER) (test code = 751) MEAN CORPUSCULAR HEMOGLOBIN CONC 33.5 GM/DL 32.2-35.5 (BEAKER) (test code = 752) RED CELL DISTRIBUTION WIDTH 12.5 % 11.7-14.4 (BEAKER) (test code = 412) PLATELET COUNT (BEAKER) (test 200 K/CU MM 150-450 code = 756) MEAN PLATELET VOLUME (BEAKER) 10.3 fL 9.4-12.3 (test code = 754) NUCLEATED RED BLOOD CELLS 0 /100 WBC 0-0 (BEAKER) (test code = 413) NEUTROPHILS RELATIVE PERCENT 75 % (BEAKER) (test code = 429) LYMPHOCYTES RELATIVE PERCENT 13 % (BEAKER) (test code = 430) MONOCYTES RELATIVE PERCENT 10 % (BEAKER) (test code = 431) EOSINOPHILS RELATIVE PERCENT 2 % (BEAKER) (test code = 432) BASOPHILS RELATIVE PERCENT 0 % (BEAKER) (test code = 437) NEUTROPHILS ABSOLUTE COUNT 6.45 K/ L 1.56-6.13 H (BEAKER) (test code = 670) LYMPHOCYTES ABSOLUTE COUNT 1.10 K/ L 1.18-3.74 L (BEAKER) (test code = 414) MONOCYTES ABSOLUTE COUNT (BEAKER) 0.87 K/ L 0.24-0.36 H (test code = 415) EOSINOPHILS ABSOLUTE COUNT 0.13 K/ L 0.04-0.36 (BEAKER) (test code = 416) BASOPHILS ABSOLUTE COUNT (BEAKER) 0.03 K/ L 0.01-0.08 (test code = 417) IMMATURE GRANULOCYTES-RELATIVE 0.30 % 0.00-1.00 PERCENT (BEAKER) (test code = 2801) POCT-GLUCOSE [id number] 23:04:06 Test Item Value Reference Range Interpretation Comments POC-GLUCOSE METER 86 mg/dL 70-110 : TESTED A T [facility] 6720 (BEAKER) (test code = [place], 1538) [address]: Breadman/Techni carol ID = [id number] for Jordan , Nneoma T4, [id number] 20:46:57 Test Item Value Reference Range Interpretation Comments FREE T4 (BEAKER) (test code = 655) 1.02 ng/dL 0.70-1.48 Breadman ID - BSTSH/FREE T4 IF [id number] 19:44:10 Test Item Value Reference Range Interpretation Comments THYROID STIMULATING HORMONE 0.107 uIU/mL 0.350-4.940 L (BEAKER) (test code = 772) Breadman ID - BSHIV-1 ANTIGEN WITH HIV-1/2 [id number] 19:42:57 Test Item Value Reference Range Interpretation Comments HIV-1 ANTIGEN WITH HIV 1\\T\\2 Nonreactive Nonreactive ANTIBODY (2) (BEAKER) (test code = 2586) Breadman ID - BSHIGH SENSITIVITY TROPONIN [id number] 19:28:20 Test Item Value Reference Range Interpretation Comments HIGH SENSITIVITY TROPONIN I (test 12 pg/ml <=17 code = 0104334) Breadman ID - BSThe PNEUMATIC TESTER MECHANIC STAT High Sensitivity Troponin-I results should be used in conjunctionwith other diagnostic information such as ECG, clinical observations and information, and patient symptoms to aid in the diagnosis of [place].HEPATIC FUNCTION [id number] 19:20:11 Test Item Value Reference Range Interpretation Comments TOTAL PROTEIN (BEAKER) (test code = 6.4 gm/dL 6.0-8.3 770) ALBUMIN (BEAKER) (test code = 1145) 3.4 g/dL 3.5-5.0 L BILIRUBIN TOTAL (BEAKER) (test code 0.4 mg/dL 0.2-1.2 = 377) BILIRUBIN DIRECT (BEAKER) (test 0.2 mg/dL 0.1-0.5 code = 706) ALKALINE PHOSPHATASE (BEAKER) (test 70 U/L 40-150 code = 346) AST (SGOT) (BEAKER) (test code = 46 U/L 5-34 H 353) ALT (SGPT) (BEAKER) (test code = 31 U/L 6-55 347) Breadman ID - BSLIPID [id number] 19:20:11 Test Item Value Reference Range Interpretation Comments TRIGLYCERIDES (BEAKER) (test code = 121 mg/dL 540) CHOLESTEROL (BEAKER) (test code = 160 mg/dL 631) HDL CHOLESTEROL (BEAKER) (test code 46 mg/dL = 976) LDL CHOLESTEROL CALCULATED (AKER) 90 mg/dL (test code = 633) Triglyceride Reference Range: Low Risk <150 Borderline 150-199 High Risk 200-499 Very High Risk >=500Cholesterol Reference Range: Low Risk <200 Borderline 200-239 High Risk >240HDL Cholesterol Reference Range: Low Risk >=60 High Risk <40LDL Cholesterol Reference Range: Optimal <100 Near Optimal 100-129 Borderline 130-159 High 160-189 Very High >=190 Breadman ID - [id number] 19:13:49 Test Item Value Reference Range Interpretation Comments PARTIAL THROMBOPLASTIN TIME 27.1 seconds 22.5-36.0 (PIERCEAKER) (test code = 760) PROTHROMBIN [id number] 19:13:02 Test Item Value Reference Range Interpretation Comments PROTIME (CARL) (test code = 13.7 seconds 11.9-14.2 759) INR (AKER) (test code = 370) 1.12 <=5.90 RECOMMENDED COUMADIN/WARFARIN INR THERAPY RANGESSTANDARD DOSE: 2.0 - 3.0 Includes: PROPHYLAXIS for venous thrombosis, systemic embolization; TREATMENT for venous thrombosis and/or pulmonary embolus.HIGH RISK: Target INR is 2.5-3.5 for patients with mechanical heart valves.CBC WITH [id number] 11:54:35 Test Item Value Reference Range Interpretation Comments WBC (test code = See_Comment H [Automated 2048-2) message] The system which generated this result transmit darrion reference range : 4.30 - 11.10 10*3/?L. The reference range was not used to interpret this result as normal/abnormal . RBC (test code = See_Comment L [Automated 164-8) message] The system which generated this result transmit darrion reference range : 3.93 - 5.25 10*6/?L. The reference range was not used to interpret this result as normal/abnormal . HGB (test code = 11.0 g/dL 11.6-15.0 L 718-7) HCT (test code = 32.7 % 35.7-45.2 L 4544-3) MCV (test code = 95.6 fL 80.6-95.5 H 787-2) MCH (test code = 32.2 pg 25.9-32.8 785-6) MCHC (test code = 33.6 g/dL 31.6-35.1 786-4) RDW-SD (test code = 47.2 fL 39.0-49.9 42403-2) RDW-CV (test code = 13.3 % 12.0-15.5 788-0) PLT (test code = See_Comment [Automated 777-3) message] The system which generated this result transmit darrion reference range : 166 - 358 10*3/ ?L. The reference range was not u sed to interpret th is result as normal/abnormal . MPV (test code = 10.6 fL 9.5-12.9 77307-4) NRBC/100 WBC (test See_Comment [Automat ed code = 3287781731) message] The system which generated this result transmit darrion reference range : 0.0 - 10.0 /100 WBCs. The reference range was not used to interpret this result as normal/abnormal . NRBC x10^3 (test code <0.01 See_Comment [Auto mated = 2973272850) message] The system which generated this result transmit darrion reference range : 10*3/?L. The reference range was not used to interpret this result as normal/abnormal . GRAN MAT (NEUT) % 79.3 % (test code = 770-8) IMM GRAN % (test code 5.70 % = 3347750205) LYMPH % (test code = 6.9 % 736-9) MONO % (test code = 6.8 % 5905-5) EOS % (test code = 0.7 % 713-8) BASO % (test code = 0.6 % 706-2) GRAN MAT x10^3(ANC) 11.84 10*3/uL 1.88-7.09 H (test code = 2551811277) IMM GRAN x10^3 (test 0.85 10*3/uL 0.00-0.06 H code = 5959728482) LYMPH x10^3 (test code 1.03 10*3/uL 1.32-3.29 L = 731-0) MONO x10^3 (test code 1.01 10*3/uL 0.33-0.92 H = 742-7) EOS x10^3 (test code = 0.10 10*3/uL 0.03-0.39 711-2) BASO x10^3 (test code 0.09 10*3/uL 0.01-0.07 H = 704-7) TOXIC CHANGES (test Present A code = 803-7) Lab Interpretation Abnormal (test code = 77611-6) [facility] Test Item Value Reference Range Interpretation Comments MAGNESIUM (test code = 9623564554) 2.1 mg/dL 1.7-2.4 Lab Interpretation (test code = Normal 74288-5) [facility] METABOLIC PANEL (NA, K, CL, CO2, GLUCOSE, BUN, CREATININE, CA)2021-04-03 11:21:35 Test Item Value Reference Range Interpretation Comments NA (test code = 140 mmol/L 135-145 7870060058) K (test code = 4.0 mmol/L 3.5-5.0 0112600440) CL (test code = 105 mmol/L 98-108 1568534887) CO2 TOTAL (test code = 30 mmol/L 23-31 8397766586) AGAP (test code = 2-16 4712408157) BUN (test code = 9 mg/dL 7-23 7496103259) GLUCOSE (test code = 89 mg/dL 70-110 3747655482) CREATININE (test code = 0.39 mg/dL 0.50-1.04 L 6594284545) CALCIUM (test code = 8.2 mg/dL 8.6-10.6 L 6332361083) eGFR (test code = mL/min/1.73m2 4209134140) QUE (test code = QUE) Association of Glomerular Filtration Rate (GFR) and Staging of Kidney Disease* + --+ --+ ------+| GFR (mL/min/1.73 m2) ?| With Kidney Damage ?| ?Without Kidney Damage+ --------+ --------+ +| ?>90 ?| ?Stage one ?| ? Normal ?+ ---+ ---+ -------+| ?60-89 ?| ?Stage two ?| ? Decreased GFR ? + --+ --+ ------+| ?30-59 ?| ?Stage three ?| ? Stage three ? + --+ --+ ------+| ?15-29 ?| ?Stage four ? | ? Stage four ?+ ---+ ---+ -------+| ?<15 (or dialysis) ? ?| ?Stage five ? | ? Stage five ?+ ---+ ---+ -------+ *Each stage assumes the associated GFR level has been in effect for at least three months. ?Stages 1 to 5, with or without kidney disease, indicate chronic kidney disease. Notes: Determination of stages one and two (with eGFR >59mL/min/1.73 m2) requires estimation of kidney damage for at least three months as defined by structural or functional abnormalities of the kidney, manifested by either:Pathological abnormalities or Markers of kidney damage (including abnormalities in the composition of the blood or urine or abnormalities in imaging tests). Lab Interpretation Abnormal (test code = 42424-8) [facility] 11:21:15 Test Item Value Reference Range Interpretation Comments PHOSPHORUS (test code = 1690616343) 2.1 mg/dL 2.5-5.0 L Lab Interpretation (test code = Abnormal 66942-9) [facility]ENS DNA [id number] 21:43:06 Test Item Value Reference Range Interpretation Comments Escherichia coli (test Positive Negative, See A code = 43420-5) Comment/Narrative QUE (test code = QUE) See blood culture result for additional information. ?Testing included eight identification and six resistance marker targets. Lab Interpretation Abnormal (test code = 40236-0) [facility] with [id number] 18:39:37 Test Item Value Reference Range Interpretation Comments WBC (test code = See_Comment H [Automated 0690-2) message] The system which generated this result transmit darrion reference range : 4.30 - 11.10 10*3/?L. The reference range was not used to interpret this result as normal/abnormal . RBC (test code = See_Comment L [Automated 719-8) message] The system which generated this result transmit darrion reference range : 3.93 - 5.25 10*6/?L. The reference range was not used to interpret this result as normal/abnormal . HGB (test code = 9.8 g/dL 11.6-15.0 L 718-7) HCT (test code = 28.4 % 35.7-45.2 L 4544-3) MCV (test code = 95.3 fL 80.6-95.5 787-2) MCH (test code = 32.9 pg 25.9-32.8 H 785-6) MCHC (test code = 34.5 g/dL 31.6-35.1 786-4) RDW-SD (test code = 45.6 fL 39.0-49.9 54147-8) RDW-CV (test code = 13.2 % 12.0-15.5 788-0) PLT (test code = See_Comment [Automated 777-3) message] The system which generated this result transmit darrion reference range : 166 - 358 10*3/ ?L. The reference range was not u sed to interpret th is result as normal/abnormal . MPV (test code = 10.9 fL 9.5-12.9 57936-0) NRBC/100 WBC (test See_Comment [Automat ed code = 5444365075) message] The system which generated this result transmit darrion reference range : 0.0 - 10.0 /100 WBCs. The reference range was not used to interpret this result as normal/abnormal . NRBC x10^3 (test code <0.01 See_Comment [Auto mated = 2473193742) message] The system which generated this result transmit darrion reference range : 10*3/?L. The reference range was not used to interpret this result as normal/abnormal . SEG % (test code = 69 % 33-76 13124-9) BAND % (test code = 14 % 0-1 H 70875-9) META % (test code = 2 % See_Comment H [Automa darrion 63861-9) message] The system which generated this result transmit darrion reference range : <=0. The refere nce range was not u sed to interpret th is result as normal/abnormal . MYELO % (test code = 1 % See_Comment H [Autom ated 99994-3) message] The system which generated this result transmit darrion reference range : <=0. The refere nce range was not u sed to interpret th is result as normal/abnormal . LYMPH % (test code = 6 % 14-54 L 54195-5) MONO % (test code = 8 % 0-4 H 18187-9) ANC (test code = 14.98 10*3/uL 1.88-7.09 H 0532415739) TOXIC CHANGES (test Present A code = 803-7) Lab Interpretation Abnormal (test code = 62431-3) [facility] VW [id number] 17:58:05 HISTORY: S/P fall. FINDINGS: AP, lateral, oblique views of right ankle obtained with portabletechnique showed no acute fracture or dislocation. No significant anklejoint effusion. Mild degenerative changes are seen in the medial tibiotalarjoint. 3 Heavy duty see shift metallic clamps are seen utilizedfor arthrodesis ofsubtalar joint, calcaneocuboid, talonavicular joint. CONCLUSIONS: No acute fracture or dislocation in right ankle. [facility], Radiant Results Inft User - 04/02/2021 12:59 PM CDT HISTORY: S/P fall.FINDINGS: AP, lateral, oblique views of right ankle obtained with portabletechnique showed no acute fracture or dislocation. No significant anklejoint effusion. Mild degenerative changes are seen in the medial tibiotalarjoint.3 Heavy duty see shift metallic clamps are seen utilized for arthrodesis ofsubtalar joint, calcaneocuboid, talonavicular joint.CONCLUSIONS: No acute fracture or dislocation in right ankle.[facility] Test Item Value Reference Range Interpretation Comments MAGNESIUM (test code = 3399323830) 1.5 mg/dL 1.7-2.4 L Lab Interpretation (test code = Abnormal 52971-1) [facility] (NA, K, CL, CO2, GLUCOSE, BUN, CREATININE, CA)2021-04-02 11:55:55 Test Item Value Reference Range Interpretation Comments NA (test code = 137 mmol/L 135-145 6768593341) K (test code = 2.6 mmol/L 3.5-5.0 LL [id number]) CL (test code = 106 mmol/L 98-108 4255392165) CO2 TOTAL (test code = 27 mmol/L 23-31 1770347703) AGAP (test code = 2-16 3765941623) BUN (test code = 15 mg/dL 7-23 7835703265) GLUCOSE (test code = 99 mg/dL 70-110 6190679361) CREATININE (test code = 0.43 mg/dL 0.50-1.04 L [id number]) CALCIUM (test code = 7.6 mg/dL 8.6-10.6 L [id number]) eGFR (test code = mL/min/1.73m2 1414273368) QUE (test code = QUE) Association of Glomerular Filtration Rate (GFR) and Staging of Kidney Disease* + --+ --+ ------+| GFR (mL/min/1.73 m2) ?| With Kidney Damage ?| ?Without Kidney Damage+ --------+ --------+ +| ?>90 ?| ?Stage one ?| ? Normal ?+ ---+ ---+ -------+| ?60-89 ?| ?Stage two ?| ? Decreased GFR ? + --+ --+ ------+| ?30-59 ?| ?Stage three ?| ? Stage three ? + --+ --+ ------+| ?15-29 ?| ?Stage four ? | ? Stage four ?+ ---+ ---+ -------+| ?<15 (or dialysis) ? ?| ?Stage five ? | ? Stage five ?+ ---+ ---+ -------+ *Each stage assumes the associated GFR level has been in effect for at least three months. ?Stages 1 to 5, with or without kidney disease, indicate chronic kidney disease. Notes: Determination of stages one and two (with eGFR >59mL/min/1.73 m2) requires estimation of kidney damage for at least three months as defined by structural or functional abnormalities of the kidney, manifested by either:Pathological abnormalities or Markers of kidney damage (including abnormalities in the composition of the blood or urine or abnormalities in imaging tests). Lab Interpretation Abnormal (test code = 98894-0) [facility] [id number] 02:25:52 Bilateral moderate hip osteoarthritis without definite acute fracture ordislocation appreciated on single bilateral AP views. Please correlate withfindings on CT of the abdomen and pelvis from the same day, not availablefor review. RL: [id number] AFC: [id number] Ordering physician: PADDY SHEA INDICATION: Unwitnessed fall COMPARISON: None available FINDINGS: Single AP views of the bilateral hips. There is bilateralmoderate osteoarthritis, with loss of joint space and marginal osteophyteformation. No definite acute fracture or disloca tion is appreciated. [facility], Radiant Results Inft User - 04/01/2021 9:27 PM CDTFormatting of this notemight be different from the original.Ordering physician: PADDY SHEAINDICATION: Unwitnessed fallCOMPARISON: None availableFINDINGS: Single AP views of the bilateral hips. There is bilateralmoderate osteoarthritis, with loss of joint space and marginal osteophyteformation. No definite acute fracture or dislocation is appreciated.IMPRESSIONBilateral moderate hip osteoarthritis without definite ac navajo fracture ordislocation appreciated on single bilateral AP views. Please correlate withfindings on CT of the abdomen and pelvis from the same day, not availablefor review.RL: [id number]: [id number] signed by Nichole Norris MD, PhD at 04/01/2021 9:25 PMUnUT Health [facility] HospitalCREATINE KINASE 2021-04-02 00:01:50 Test Item Value Reference Range Interpretation Comments CK (test code = 3596352490) 382 U/L 33-194 H Slight hemolysis Lab Interpretation (test Abnormal code = 53674-1) [facility] HospitalLactic Acid Whole [id number] 20:34:02 Test Item Value Reference Range Interpretation Comments LACTIC ACID (test code = 1.58 mmol/L 0.50-2.20 7412527122) Lab Interpretation (test code = Normal 31480-5) [facility] P[facility] W WO [id number] 20:27:17CT Abdomen and Pelvis without and with intravenous contrast. CLINICAL HISTORY: Hematuria, unknown cause. DOSE: Up-to-date CT equipment and radiation dose reduction techniques wereemployed. CTDIvol: 6.19+6.16 mGy. DLP: 269+277 mGy-cm. TECHNIQUE : Contiguous axial imaging from the level of the lung bases through the pubic symphysis were performed initially without contrast andsubsequently after the uncomplicated administration of Omnipaque contrastmaterial (CT urogram protocol). ?Coronal and sagittal reconstructions wereobtained. Auto mA and/or iterative reconstruction were used to reduceradiation dose. FINDINGS: ? Lower lungs: Clear. No pleural effusion or pericardial effusion. Lefthemidiaphragm is elevated without apparent cause in this study. Liver, Gallbladder and Spleen: Liver is 15.2 cm and appears normal.Gallbladder is hydropic without any other associated CT signs such ascalcified gallstones or cerebral edema or pericholecystic fluid collection. Spleen is approximately 9.8 x 4.9 cm. Commonhepatic duct is slightlydilated, measuring 7 to 8 mm. Distal common bile duct and pancreatic ductappear of normal size. Peritoneum: ?No free air or free fluid. No lymphadenopathy. Pancreas and Adrenals: ?Unremarkable pancreas and adrenal glands. Kidneys and Ureters: ?No visible calculi in the renal collecting systems. No hydroureter or hydronephrosis. Diffuse striated nephrogram pattern detected in both kidneys, more severeon the right side. There is no congestion of the perinephric fat. Vessels: Mild atherosclerosis of aorta and iliac arteries. Patenthepatic/portal venous circulation and renal veins. Retroperitoneum: No abnormal fluid or lymphadenopathy. Bowel: Constipation. Normal appendix. Radiopaque material is seen in somedistal small bowel loops and in the duodenum which could be orally ingestedmedication. Bladder and Reproductive Organs: S/P hysterectomy. Urinary bladder isunremarkable. Bones: Lumbar dextroscoliosis, moderate degenerative disc disease at L4-L5,less at L3-L4 with grade 1 spondylolisthesis at L4-L5 and moderate facetarthritis at lower 4 lumbar levels. Soft tissues: Unremarkable except for slightly irregular shaped 2 x 1 cmumbilical hernia containing fat. CONCLUSION:1. Striated bilateral nephrograms pattern, suggestive of diffuse bilateralpyelonephritis without any renalabscess or perinephric fat congestion.2. No kidney stones or hydronephrosis. [facility], Radiant Results Inft User - 04/01/2021 3:[address] Abdomen and Pelvis without and with intravenous contrast.CLINICAL HISTORY: Hematuria, unknown cause.DOSE:Up-to-date CT equipment and radiation dose reduction techniques wereemployed. CTDIvol: 6.19+6.16 mGy. DLP: 269+277 mGy-cm.TECHNIQUE : Contiguous axial imaging from the level of the lung basesthrough the pubic symphysis were performed initially without contrast andsubsequently after the uncomplicated administration of Omnipaque contrastmaterial (CT urogram protocol). Coronal and sagittal reconstructions wereobtained. Auto mA and/or iterative reconstruction were used to reduceradiation dose.FINDINGS: Lower lungs: Clear. No pleural effusion or pericardial effusion. Lefthemidiaphragm is elevated without apparent cause in this study.Liver, Gallbladder and Spleen: Liver is 15.2 cm and appears normal.Gallbladder is hydropic without any other associated CT signs such ascalcified gallstones or cerebral edema or pericholecystic fluid collection.Spleen is approximately 9.8 x 4.9 cm. Common hepatic duct is s lightlydilated, measuring 7 to 8 mm. Distal common bile duct and pancreatic ductappear of normal size.Peritoneum: No free air or free fluid. No lymphadenopathy.Pancreas and Adrenals: Unremarkable pancreas and adrenal glands.Kidneys and Ureters: No visible calculi in the renal collecting systems. No hydroureter or hydronephrosis.Diffuse striated nephrogram pattern detected in both kidneys, more severeon the right side. There is no congestion of the perinephric fat. Vessels: Mild atherosclerosis of aorta and iliac arteries. Patenthepatic/portal venous circulation and renal veins.Retroperitoneum: No ab normal fluid or lymphadenopathy.Bowel: Constipation. Normal appendix. Radiopaque material is seen insomedistal small bowel loops and in the duodenum which could be orally ingestedmedication.Bladder and Reproductive Organs: S/P hysterectomy. Urinary bladder isunremarkable.Bones: Lumbar dextroscoliosis, moderate degenerative disc disease at L4-L5,less at L3-L4 with grade 1 spondylolisthesis at L4-L5 and moderate facetarthritis at lower 4 lumbar levels.Soft tissues: Unremarkable except for slightly irregular shaped 2 x 1 cmumbilical hernia containing fat.CONCLUSION:1. Striated bilateral nephrograms pattern, suggestive of diffuse bilateralpyelonephritis without any renal abscess or perinephric fat congestion.2. No kidney stones or hydronephrosis.[facility]MAGNESIUM2021-[facility] 20:15:14 Test Item Value Reference Range Interpretation Comments MAGNESIUM (test code = 1609836469) 1.7 mg/dL 1.7-2.4 Lab Interpretation (test code = Normal 93715-6) [facility]PHOSPHORUS2021-06-02 20:14:58 Test Item Value Reference Range Interpretation Comments PHOSPHORUS (test code = 2.1 mg/dL 2.5-5.0 L Slig ht hemolysis 3584673536) Lab Interpretation (test Abnormal code = 79718-7) [facility] HospitalCOMP. METABOLIC PANEL (36300)2021-04-01 18:35:32 Test Item Value Reference Range Interpretation Comments NA (test code = 133 mmol/L 135-145 L 3014901370) K (test code = 3.0 mmol/L 3.5-5.0 L 6061473272) CL (test code = 101 mmol/L 98-108 6615086163) CO2 TOTAL (test code = 23 mmol/L 23-31 9032767529) AGAP (test code = 2-16 9702104297) BUN (test code = 33 mg/dL 7-23 H 8462192580) GLUCOSE (test code = 120 mg/dL 70-110 H 2138866413) CREATININE (test code = 0.64 mg/dL 0.50-1.04 0638362644) TOTAL BILI (test code = 0.9 mg/dL 0.1-1.0 3443370264) CALCIUM (test code = 8.2 mg/dL 8.6-10.6 L 9358186814) T PROTEIN (test code = 6.9 g/dL 6.3-8.2 1768746839) ALBUMIN (test code = 3.2 g/dL 3.5-5.0 L 1469507608) ALK PHOS (test code = 116 U/L 34-122 5937317388) ALTv (test code = 39 U/L 5-35 H 1742-6) AST(SGOT) (test code = 63 U/L 13-40 H 2111827161) eGFR (test code = mL/min/1.73m2 9670579315) QUE (test code = QUE) Association of Glomerular Filtration Rate (GFR) and Staging of Kidney Disease* + --+ --+ ------+| GFR (mL/min/1.73 m2) ?| With Kidney Damage ?| ?Without Kidney Damage+ --------+ --------+ +| ?>90 ?| ?Stage one ?| ? Normal ?+ ---+ ---+ -------+| ?60-89 ?| ?Stage two ?| ? Decreased GFR ? + --+ --+ ------+| ?30-59 ?| ?Stage three ?| ? Stage three ? + --+ --+ ------+| ?15-29 ?| ?Stage four ? | ? Stage four ?+ ---+ ---+ -------+| ?<15 (or dialysis) ? ?| ?Stage five ? | ? Stage five ?+ ---+ ---+ -------+ *Each stage assumes the associated GFR level has been in effect for at least three months. ?Stages 1 to 5, with or without kidney disease, indicate chronic kidney disease. Notes: Determination of stages one and two (with eGFR >59mL/min/1.73 m2) requires estimation of kidney damage for at least three months as defined by structural or functional abnormalities of the kidney, manifested by either:Pathological abnormalities or Markers of kidney damage (including abnormalities in the composition of the blood or urine or abnormalities in imaging tests). Lab Interpretation Abnormal (test code = 38582-0) [facility] WITH [id number] 18:13:18 Test Item Value Reference Range Interpretation Comments WBC (test code = See_Comment H [Automated 7790-2) message] The system which generated this result transmitted reference range : 4.30 - 11.10 10*3/?L. The reference range was not used to interpret this result as normal/abnormal . RBC (test code = See_Comment L [Automated 859-8) message] The system which generated this result transmitted reference range : 3.93 - 5.25 10*6/?L. The reference range was not used to interpret this result as normal/abnormal . HGB (test code = 12.1 g/dL 11.6-15.0 718-7) HCT (test code = 35.3 % 35.7-45.2 L 4544-3) MCV (test code = 95.7 fL 80.6-95.5 H 787-2) MCH (test code = 32.8 pg 25.9-32.8 785-6) MCHC (test code = 34.3 g/dL 31.6-35.1 786-4) RDW-SD (test code = 45.1 fL 39.0-49.9 94897-0) RDW-CV (test code = 13.0 % 12.0-15.5 788-0) PLT (test code = See_Comment [Automated 777-3) message] The system which generated this result transmitted reference range : 166 - 358 10*3/?L. The reference range was not used to interpret this result as normal/abnormal . MPV (test code = 11.0 fL 9.5-12.9 58027-6) NRBC/100 WBC (test See_Comment [Automat ed code = 5523960558) message] The system which generated this result transmitted reference range : 0.0 - 10.0 /100 WBCs. The reference range was not used to interpret this result as normal/abnormal . NRBC x10^3 (test code <0.01 See_Comment [Auto mated = 1668157653) message] The system which generated this result transmitted reference range : 10*3/?L. The reference range was not used to interpret this result as normal/abnormal . GRAN MAT (NEUT) % 86.7 % (test code = 770-8) IMM GRAN % (test code 4.60 % = 9063107635) LYMPH % (test code = 3.1 % 736-9) MONO % (test code = 5.2 % 5905-5) EOS % (test code = 0.0 % 713-8) BASO % (test code = 0.4 % 706-2) GRAN MAT x10^3(ANC) 22.47 10*3/uL 1.88-7.09 H (test code = 9652364047) IMM GRAN x10^3 (test 1.18 10*3/uL 0.00-0.06 H code = 7335326278) LYMPH x10^3 (test 0.80 10*3/uL 1.32-3.29 L code = 731-0) MONO x10^3 (test code 1.36 10*3/uL 0.33-0.92 H = 742-7) EOS x10^3 (test code <0.03 0.03-0.39 L = 711-2) BASO x10^3 (test code 0.10 10*3/uL 0.01-0.07 H = 704-7) BANDS (test code = MARKED INCREASED A 7862134034) TOXIC CHANGES (test Present A code = 803-7) Lab Interpretation Abnormal (test code = 19815-5) [facility] ([facility] NOW RAPID TESTING)2021-04-01 17:46:30 Test Item Value Reference Range Interpretation Comments SARS-CoV-2 Rapid ID NOW Not Detected Not Detected (test code = 09860-1) QUE (test code = QUE) ID NOW COVID-19 Assay is an isothermal nucleic acid amplification test intended for the qualitative detection of nucleic acid from SARS-CoV-2 viral RNA in nasopharyngeal (NOODLE MAKER) specimens. It is used under Emergency Use Authorization (EUA) by FDA. The limit of detection (LOD) of the assay is 125 Genome Equivalents/mL. A positive result is indicative of the presence of SARS-CoV-2 RNA. ?Clinical correlation with patient history and other diagnostic information is necessary to determine patient infection status. A negative (Not Detected) result does not preclude SARS-CoV-2 infection. In patients with clinical symptoms and other tests that are consistent with SARS-CoV-2 infection, negative results should be treated as presumptive negative and a new specimen should be tested with alternative PCR molecular test. Invalid: Please collect a new specimen for repeat patient testing if clinically indicated. Lab Interpretation Normal (test code = 20559-5) [facility]UR[facility]IS20[facility] 17:44:32 Test Item Value Reference Range Interpretation Comments APPEARANCE (test code = Cloudy Clear A 5602939428) COLOR (test code = Marsha Yellow A 8078216571) PH (test code = 4.8-8.0 7583922093) SP GRAVITY (test code = 1.003-1.030 7031927674) GLU U QUAL (test code = Normal Normal 4727766924) BLOOD (test code = 3+ Negative A 1856237278) KETONES (test code = 5 mg/dL Negative A 0340461172) PROTEIN (test code = 30 mg/dL Negative A 2887-8) UROBILIN (test code = Normal Normal 9226256057) BILIRUBIN (test code = Negative Negative 7397469258) NITRITE (test code = Positive Negative A 0275508440) LEUK ELLEN (test code = 500/uL Negative A 3287946266) RBC/HPF (test code = See_Comment H [Autom ated message] 4354843782) The system [employer] generated this result transmitted ref erence range: 0 - 3 HP F. The reference range was not used to int erpret this result as normal/abnormal . WBC/HPF (test code = See_Comment H [Autom ated message] 1049881430) The system [employer] generated this result transmitted ref erence range: 0 - 5 HP F. The reference range was not used to int erpret this result as normal/abnormal . BACTERIA (test code = Many Negative A 5651700220) MUCOUS (test code = Slight Negative LPF A 3270591572) SQ EPITH (test code = HPF 2437930255) HYAL CAST (test code = See_Comment H [Aut omated message] 1399627428) The system [employer] generated this result transmitted ref erence range: <=2 LPF. The reference range was not used to int erpret this result as normal/abnormal . Lab Interpretation (test Abnormal code = 74001-7) [facility] HospitalL[facility] Acid Whole Mvsgd1965-13-15 17:31:59 Test Item Value Reference Range Interpretation Comments LACTIC ACID (test code = 2.30 mmol/L 0.50-2.20 H 9634547411) Lab Interpretation (test code = Abnormal 28429-9) [facility]ST 1 [id number] 17:29:28HISTORY: AMS. TECHNIQUE: Portable AP erect view of the chest is obtained. No prior cheststudy available for comparison. FINDINGS: No acute pneumonia. No pneumothorax or pleural effusion orpulmonary congestion detected. Cardiac size is within normal limits. Severe deformity of the left glenohumeral joint noted, probably secondaryto remote trauma. CONCLUSIONS: No signs of acute cardiopulmonary disease.[facility], Radiant Results Inft User - 04/01/2021 12:30 PM CDT HISTORY: AMS.TECHNIQUE: Portable AP erect view of the chest is obtained. No prior cheststudy available for comparison.FINDINGS: No acute pneumonia. No pneumothorax or pleural effusion or pulmonary congestion detected. Cardiac size is within normal limits.Severe deformity of the left glenohumeral joint noted, probably secondaryto remote trauma.CONCLUSIONS: No signs of acute cardiopulmonary disease.[facility]IMMUNOLOGY2018-[facility]-08 18:12:00 Test Item Value Reference Range Interpretation Comments Tot Prot (SPE) (test code = Tot Prot 5.9 6.4-8.4 (SPE)) [facility]RkavumcZUIGWASIXG8438-68-39 18:12:00 Test Item Value Reference Range Interpretation Comments Gamma Glob (test code = Gamma Glob) 0.71 0.71-1.57 [facility] CenterSybbutsLPGVWWYSRI6003-52-90 18:12:00 Test Item Value Reference Range Interpretation Comments Beta Glob (test code = Beta Glob) 0.63 0.50-1.15 [facility] CenterAqxppgoTGDXENDVWI0224-39-68 18:12:00 Test Item Value Reference Range Interpretation Comments Alpha 2 Glob (test code = Alpha 2 Glob) 0.90 0.45-1.00 [facility] CenterZtqhpgaSEFPBYFNHX9777-29-85 18:12:00 Test Item Value Reference Range Interpretation Comments SPE Interp (test Total protein is decreased code = SPE Interp) with a corresponding decrease in serum albumin. Serum capillary protein electrophoresis shows an elevated alpha-1 globulin fraction consistent with the acute phase of an inflammatory process. No definite monoclonal proteins are identified. However, an area of asymmetry is noted within the polyclonal gamma fraction and, therefore, an underlying monoclonal protein cannot be excluded. Clinical correlation is recommended with immunofixation electrophoresis of serum and urine if clinically indicated. Interpretation performed at [facility]. [facility] CenterWgonjufRKTFFLCRQO7358-92-16 18:12:00 Test Item Value Reference Range Interpretation Comments Alpha 1 Glob (test code = Alpha 1 Glob) 0.51 0.18-0.41 [facility] CenterHunthtyOZAFLAKKLF3365-65-10 18:12:00 Test Item Value Reference Range Interpretation Comments Albumin % (test code = Albumin %) 53.5 55.8-66.1 [facility] CenterRjwizqrAFMWMNRFEV1115-29-24 18:12:00 Test Item Value Reference Range Interpretation Comments Alpha 1 % (test code = Alpha 1 %) 8.6 2.8-4.9 [facility] CenterTlzbmzjKBBSEPZCUN8266-30-22 18:12:00 Test Item Value Reference Range Interpretation Comments ARIA Ser Interp Serum immunofixation (test code = ARIA electrophoresis reveals a Ser Interp) polyclonal pattern of immunoglobulins. No monoclonal proteins are identified. Interpretation performed at [facility]. [facility] CenterWtagcetVHNODZTXWB9113-77-64 18:12:00 Test Item Value Reference Range Interpretation Comments ARIA Ser Pattern Diffusely immunoreactive (test code = ARIA bands are noted in the Ser Pattern) IgG, IgA, IgM, kappa and lambda lanes. No monoclonal bands are identified. Interpretation performed at [facility]. [facility] CenterVnkbvrlOAJFJXVSMU1509-72-07 18:12:00 Test Item Value Reference Range Interpretation Comments [place]/Lambda Free Light Chains Ratio 2.15 0.26-1.65 (test code = [place]/Lambda Free Light Chains Ratio) [facility] CenterTcxmhjgZVZGVVSGRI3646-71-66 18:12:00 Test Item Value Reference Range Interpretation Comments Lambda Free Light Chains (test code = 12.47 5.70-26.30 L[employer] Chains) [facility] CenterByurogaONJWCSGUOH4435-06-58 18:12:00 Test Item Value Reference Range Interpretation Comments [place] Free [employer] Chains (test code = 26.82 3.30-19.40 [place] Free Light Chains) [facility] CenterDstthifLQMDVKIHLH3329-78-39 18:12:00 Test Item Value Reference Range Interpretation Comments SCL- 70 Ab (test code = SCL- 70 Ab) no [facility]2018-03-08 18:12:00 Test Item Value Reference Range Interpretation Comments SS-B (La) Ab (test code = SS-B (La) Ab) no [facility]2018-03-08 18:12:00 Test Item Value Reference Range Interpretation Comments SS-A (Ro) Ab (test code = SS-A (Ro) Ab) no [facility]2018-03-08 18:12:00 Test Item Value Reference Range Interpretation Comments Hep C Ab (test code = Positive *ABN*(01/05/18 Hep C Ab) 12:12 PM) [facility] CenterGmmgfjlCIONUBTOVR3140-49-85 18:12:00 Test Item Value Reference Range Interpretation Comments Hep Bs Ag (test code Negative *NA*(01/05/18 = Hep Bs Ag) 12:12 PM) [facility] CenterOgehghtLTFIGJHFKG2335-29-33 18:12:00 Test Item Value Reference Range Interpretation Comments RF Qnt (test code = RF Qnt) no gt <=20 [facility] CenterVzfzcpnTTRKOXMOHD8932-26-38 18:12:00 Test Item Value Reference Range Interpretation Comments ANGIE (test code = ANGIE) Negative (01/05/18 12:12 PM) [facility] CenterIjvyzsbWVRDPRNPPQ6525-76-97 18:12:00 Test Item Value Reference Range Interpretation Comments DNA Ab (DS) (test Negative (01/05/18 12:12 code = DNA Ab (DS)) PM) [facility] CenterLlmqyiqAUGBJVMDRE3771-12-93 18:12:00 Test Item Value Reference Range Interpretation Comments C4 Complement (test code = C4 28 16-47 Complement) [facility] CenterXmiatwxWERINOEKNW0625-96-62 18:12:00 Test Item Value Reference Range Interpretation Comments C3 Complement (test code = C3 105 88-201 Complement) [facility] CenterRliytniZCAZHJAXLG1381-40-14 18:12:00 Test Item Value Reference Range Interpretation Comments Albumin (SPE) (test code = Albumin 3.16 3.57-5.55 (SPE)) [facility] CenterPrvblukWGGNDWTPKG2696-75-60 18:12:00 Test Item Value Reference Range Interpretation Comments Gamma % (test code = Gamma %) 12.1 11.1-18.7 [facility] CenterWwauzgrFJLCDLDWCF9495-51-48 18:12:00 Test Item Value Reference Range Interpretation Comments Beta % (test code = Beta %) 10.6 7.8-13.7 [facility] CenterRuaqajgQPUZXKNXGK0297-88-58 18:12:00 Test Item Value Reference Range Interpretation Comments Alpha 2 % (test code = Alpha 2 %) 15.2 7.0-11.9 [facility] CenterVjupzqzZVVVQZTEYC3388-34-71 18:12:00 Test Item Value Reference Range Interpretation Comments Alpha 2 % (test code = Alpha 2 %) 15.2 7.0-11.9 [facility] CenterFgmhyxcDMGJGBNEJD2719-01-27 18:12:00 Test Item Value Reference Range Interpretation Comments Tot Prot (SPE) (test code = Tot Prot 5.9 6.4-8.4 (SPE)) [facility] CenterWokelfzNUJLEFHYNN1614-17-09 18:12:00 Test Item Value Reference Range Interpretation Comments Gamma Glob (test code = Gamma Glob) 0.71 0.71-1.57 [facility] CenterHfwqjogZMZLOEAOZE7167-29-26 18:12:00 Test Item Value Reference Range Interpretation Comments Beta Glob (test code = Beta Glob) 0.63 0.50-1.15 [facility] CenterDnhdrevTZKYWNMLMO8012-35-58 18:12:00 Test Item Value Reference Range Interpretation Comments Alpha 2 Glob (test code = Alpha 2 Glob) 0.90 0.45-1.00 [facility] CenterMyeinicZBXDZTAHVD6261-71-95 18:12:00 Test Item Value Reference Range Interpretation Comments SPE Interp (test Total protein is decreased code = SPE Interp) with a corresponding decrease in serum albumin. Serum capillary protein electrophoresis shows an elevated alpha-1 globulin fraction consistent with the acute phase of an inflammatory process. No definite monoclonal proteins are identified. However, an area of asymmetry is noted within the polyclonal gamma fraction and, therefore, an underlying monoclonal protein cannot be excluded. Clinical correlation is recommended with immunofixation electrophoresis of serum and urine if clinically indicated. Interpretation performed at [facility]. [facility] CenterTygherfQDADANOMXV5026-98-24 18:12:00 Test Item Value Reference Range Interpretation Comments Alpha 1 Glob (test code = Alpha 1 Glob) 0.51 0.18-0.41 [facility] [facility]ukxyttKCXJNKPJQA3156-69-84 18:12:00 Test Item Value Reference Range Interpretation Comments Albumin % (test code = Albumin %) 53.5 55.8-66.1 [facility] CenterBuopbinHXCNFFGHRK8973-06-98 18:12:00 Test Item Value Reference Range Interpretation Comments Alpha 1 % (test code = Alpha 1 %) 8.6 2.8-4.9 [facility] CenterQtzocnkFUGFBSJWWD1465-18-03 18:12:00 Test Item Value Reference Range Interpretation Comments ARIA Ser Interp Serum immunofixation (test code = ARIA electrophoresis reveals a Ser Interp) polyclonal pattern of immunoglobulins. No monoclonal proteins are identified. Interpretation performed at [facility]. [facility] CenterWuaojlmJLZZNGIUMT4934-26-03 18:12:00 Test Item Value Reference Range Interpretation Comments ARIA Ser Pattern Diffusely immunoreactive (test code = ARIA bands are noted in the Ser Pattern) IgG, IgA, IgM, kappa and lambda lanes. No monoclonal bands are identified. Interpretation performed at [facility]. [facility] CenterRhxbztdJJURAGOZQQ7452-59-57 18:12:00 Test Item Value Reference Range Interpretation Comments [place]/Lambda Free Light Chains Ratio 2.15 0.26-1.65 (test code = [place]/Lambda Free Light Chains Ratio) [facility] CenterZwpchzyCJASVROXRK6850-98-51 18:12:00 Test Item Value Reference Range Interpretation Comments Lambda Free Light Chains (test code = 12.47 5.70-26.30 Lambda Free Light Chains) [facility] CenterCdsloepTBWXTQCTKU4241-22-49 18:12:00 Test Item Value Reference Range Interpretation Comments [place] Free Light Chains (test code = 26.82 3.30-19.40 [place] Free Light Chains) [facility] CenterXgtulgiVALQLZZWZX2512-88-11 18:12:00 Test Item Value Reference Range Interpretation Comments SCL- 70 Ab (test code = SCL- 70 Ab) no gt [facility] CenterAxrmmjnMIPKQISIVB2270-61-40 18:12:00 Test Item Value Reference Range Interpretation Comments SS-B (La) Ab (test code = SS-B (La) Ab) no gt [facility] CenterRjxhozfCGIUKNNCPX9634-47-70 18:12:00 Test Item Value Reference Range Interpretation Comments SS-A (Ro) Ab (test code = SS-A (Ro) Ab) no gt [facility] CenterHcfbteeKQMVHZPYOJ5675-23-33 18:12:00 Test Item Value Reference Range Interpretation Comments Hep C Ab (test code = Positive *ABN*(01/05/18 Hep C Ab) 12:12 PM) [facility] CenterFguqkudYDRWCFKWRW6271-32-50 18:12:00 Test Item Value Reference Range Interpretation Comments Hep Bs Ag (test code Negative *NA*(01/05/18 = Hep Bs Ag) 12:12 PM) [facility] CenterCfiflmrIVTMUOUDYG8042-54-52 18:12:00 Test Item Value Reference Range Interpretation Comments RF Qnt (test code = RF Qnt) no gt <=20 [facility] CenterMqrqxxfKKJQNHZFVK3836-53-86 18:12:00 Test Item Value Reference Range Interpretation Comments ANGIE (test code = ANGIE) Negative (01/05/18 12:12 PM) [place] [id number] 18:12:00 Test Item Value Reference Range Interpretation Comments DNA Ab (DS) (test Negative (01/05/18 12:12 code = DNA Ab (DS)) PM) [facility] CenterMwlduehNHMTLCQNSX3477-60-49 18:12:00 Test Item Value Reference Range Interpretation Comments C4 Complement (test code = C4 28 16-47 Complement) [facility] CenterCmwulzfTWIUUUTATF9776-21-51 18:12:00 Test Item Value Reference Range Interpretation Comments C3 Complement (test code = C3 105 88-201 Complement) [facility] CenterPlxfepaKGFOWHFGEG0787-62-78 18:12:00 Test Item Value Reference Range Interpretation Comments Albumin (SPE) (test code = Albumin 3.16 3.57-5.55 (SPE)) [facility] CenterGqdcdvoNDYHKQDSOJ4487-09-44 18:12:00 Test Item Value Reference Range Interpretation Comments Gamma % (test code = Gamma %) 12.1 11.1-18.7 [facility] CenterFlphhebPHYYZHTMZU6908-61-97 18:12:00 Test Item Value Reference Range Interpretation Comments Beta % (test code = Beta %) 10.6 7.8-13.7 [facility] CenterIndie Vinos WFUQQ3522-46-52 10:02:00 Test Item Value Reference Range Interpretation Comments Phosphorus (test code = Phosphorus) 0.5 2.5-4.5 [facility] CenterIndie [facility]inos JZZVL4482-06-12 10:02:00 Test Item Value Reference Range Interpretation Comments Magnesium Lvl (test code = Magnesium 2.2 1.8-2.4 Lvl) [facility] ServicesDkpsquoCASAASQQYKHJ3642-20-19 10:02:00 Test Item Value Reference Range Interpretation Comments AGAP (test code = AGAP) 8.2 10.0-20.0 [facility] ServicesItdsfmtCEVQRKDIHYVI8771-47-65 10:02:00 Test Item Value Reference Range Interpretation Comments Calcium Lvl (test code = Calcium Lvl) 7.9 8.5-10.5 [facility] ServicesHuxcznvGSXVCIIXWJJM5549-49-50 10:02:00 Test Item Value Reference Range Interpretation Comments Sodium Lvl (test code = Sodium Lvl) 135 135-145 [facility] ServicesIiyyvruTCQJWFRJNJLX9546-61-17 10:02:00 Test Item Value Reference Range Interpretation Comments Potassium Lvl (test code = Potassium 3.2 3.5-5.1 Lvl) [facility] ServicesMbhxrprPNTOSIQWFERS1418-44-89 10:02:00 Test Item Value Reference Range Interpretation Comments CO2 (test code = CO2) 26 24-32 [facility] ServicesCqixqpoPPNVFTPEZBTB4980-09-30 10:02:00 Test Item Value Reference Range Interpretation Comments Chloride Lvl (test code = Chloride Lvl) 104 95-109 [facility] ServicesCsaetghMVVYNSSTRPJS5088-45-67 10:02:00 Test Item Value Reference Range Interpretation Comments Creatinine Lvl (test code = Creatinine 0.44 0.50-1.40 Lvl) [facility] ServicesBfidtovITKYNPSVJIWQ7537-71-24 10:02:00 Test Item Value Reference Range Interpretation Comments Glucose Lvl (test code = Glucose Lvl) 98 70-99 [facility] ServicesNeqjwyxARQIPWQBKNZR3453-70-63 10:02:00 Test Item Value Reference Range Interpretation Comments BUN (test code = BUN) 17 7-22 [facility] ServicesXvyepbtWVUAFRAIRTRO7242-18-57 10:02:00 Test Item Value Reference Range Interpretation Comments eGFR (test code = eGFR) 110 [facility] CenterUbmnlkcYZLKMXBIDD6137-17-61 10:02:00 Test Item Value Reference Range Interpretation Comments Eosinophils # (test code = Eosinophils 0.1 <=0.5 #) [facility] CenterVfhoxcqMMRXUELHNE7447-84-80 10:02:00 Test Item Value Reference Range Interpretation Comments Monocytes # (test code = Monocytes #) 0.6 <=0.8 [facility] CenterNyrmzbwKPPISGMTHB4901-47-68 10:02:00 Test Item Value Reference Range Interpretation Comments Segs (test code = Segs) 81.0 45.0-75.0 [facility] CenterKjvbkdjPHTNEEAJLL6495-21-70 10:02:00 Test Item Value Reference Range Interpretation Comments Lymphocytes # (test code = Lymphocytes 1.1 1.0-5.5 #) [facility] CenterCslelnsUQPPOCYYWY1919-89-59 10:02:00 Test Item Value Reference Range Interpretation Comments Basophils (test code = Basophils) 0.7 <=1.0 [facility] CenterSuxjzlwQOAQIYDMUM7143-69-23 10:02:00 Test Item Value Reference Range Interpretation Comments Segs-Bands # (test code = Segs-Bands #) 7.8 1.5-8.1 [facility] CenterShszdwdAZXETESIFB8264-92-31 10:02:00 Test Item Value Reference Range Interpretation Comments Basophils # (test code = Basophils #) 0.1 <=0.2 [facility] CenterQjujqfxZDQPBWSZQR4193-30-64 10:02:00 Test Item Value Reference Range Interpretation Comments Lymphocytes (test code = Lymphocytes) 11.1 20.0-40.0 [facility] CenterKurtjuuGXOXQSJADM1957-05-22 10:02:00 Test Item Value Reference Range Interpretation Comments Eosinophils (test code = Eosinophils) 1.3 <=4.0 [facility] CenterWdfxdzbNUGYEULEHS7628-93-68 10:02:00 Test Item Value Reference Range Interpretation Comments Monocytes (test code = Monocytes) 5.9 2.0-12.0 [facility] CenterVkdmumaHRBGWSBZVI9261-07-80 10:02:00 Test Item Value Reference Range Interpretation Comments MCH (test code = MCH) 33.2 pg 27.0-31.0 [facility] CenterFxiwycnONLJDBBKFN1545-05-44 10:02:00 Test Item Value Reference Range Interpretation Comments RBC (test code = RBC) 3.30 4.20-5.40 [facility] CenterQsfykvfYYOIVKGTTD3111-85-30 10:02:00 Test Item Value Reference Range Interpretation Comments Hgb (test code = Hgb) 11.0 12.0-16.0 [facility] CenterLyigktdWGPFIZWKCJ0367-50-86 10:02:00 Test Item Value Reference Range Interpretation Comments Hct (test code = Hct) 30.4 36.0-48.0 [facility] CenterEbnjllrCGFDKGHOSP9447-55-86 10:02:00 Test Item Value Reference Range Interpretation Comments MCV (test code = MCV) 92.0 80.0-98.0 [facility] CenterQbwnvnoBVUTBCZFCL3608-67-56 10:02:00 Test Item Value Reference Range Interpretation Comments WBC (test code = WBC) 9.6 3.7-10.4 [facility] CenterNsbpdsaVRYZDNLCWX0006-55-11 10:02:00 Test Item Value Reference Range Interpretation Comments RDW (test code = RDW) 14.7 11.5-14.5 [facility] CenterYyvjfigXYXXSRHEXV5476-13-34 10:02:00 Test Item Value Reference Range Interpretation Comments MPV (test code = MPV) 8.6 7.4-10.4 [facility] CenterOlrpzdhSYVHEGVICY7156-94-79 10:02:00 Test Item Value Reference Range Interpretation Comments MCHC (test code = MCHC) 36.1 32.0-36.0 [facility] CenterDxufzbjMLVBDZQFSY5092-94-52 10:02:00 Test Item Value Reference Range Interpretation Comments Platelet (test code = Platelet) 228 133-450 [facility] XQSUU3287-52-71 10:02:00 Test Item Value Reference Range Interpretation Comments Phosphorus (test code = Phosphorus) 0.5 2.5-4.5 [facility] TPFXB1585-40-96 10:02:00 Test Item Value Reference Range Interpretation Comments Magnesium Lvl (test code = Magnesium 2.2 1.8-2.4 Lvl) [facility] ServicesPubkotyRWJQMGSLIUHT3550-64-66 10:02:00 Test Item Value Reference Range Interpretation Comments AGAP (test code = AGAP) 8.2 10.0-20.0 [facility] ServicesZwwuarzUVVQKBMKQDHL2505-43-82 10:02:00 Test Item Value Reference Range Interpretation Comments Calcium Lvl (test code = Calcium Lvl) 7.9 8.5-10.5 [facility] ServicesKbccyrmRUUJRJWIOOBJ5675-64-22 10:02:00 Test Item Value Reference Range Interpretation Comments Sodium Lvl (test code = Sodium Lvl) 135 135-145 [facility] ServicesBwrxdfvMHLMIYMIMEHF5561-95-32 10:02:00 Test Item Value Reference Range Interpretation Comments Potassium Lvl (test code = Potassium 3.2 3.5-5.1 Lvl) [facility] ServicesFeopcfvRWVVAWLHHCMY8316-24-54 10:02:00 Test Item Value Reference Range Interpretation Comments CO2 (test code = CO2) 26 24-32 [facility] ServicesLdmhashMXKOXOEBOYKU1040-07-83 10:02:00 Test Item Value Reference Range Interpretation Comments Chloride Lvl (test code = Chloride Lvl) 104 95-109 [facility] ServicesQffrngzKAMIBGYTSGEZ3975-64-47 10:02:00 Test Item Value Reference Range Interpretation Comments Creatinine Lvl (test code = Creatinine 0.44 0.50-1.40 Lvl) [facility] ServicesWstmjojMKKIFUOQRQHV2985-28-23 10:02:00 Test Item Value Reference Range Interpretation Comments Glucose Lvl (test code = Glucose Lvl) 98 70-99 [facility] ServicesCeesafeRQBAXFMNJLQG7543-59-69 10:02:00 Test Item Value Reference Range Interpretation Comments BUN (test code = BUN) 17 7-22 [facility] ServicesXruvamdFLAHRKKRHXNW9635-51-13 10:02:00 Test Item Value Reference Range Interpretation Comments eGFR (test code = eGFR) 110 [facility] CenterEoilqwkCCIDGNUZWG7212-85-80 10:02:00 Test Item Value Reference Range Interpretation Comments Eosinophils # (test code = Eosinophils 0.1 <=0.5 #) [facility] CenterKcosrpaTAPXPFXLDN8444-81-11 10:02:00 Test Item Value Reference Range Interpretation Comments Monocytes # (test code = Monocytes #) 0.6 <=0.8 [facility] CenterFnqmtsiJVNQQBEYXU8424-92-76 10:02:00 Test Item Value Reference Range Interpretation Comments Segs (test code = Segs) 81.0 45.0-75.0 [facility] CenterJafvecdTMPKVBOSWM2551-21-20 10:02:00 Test Item Value Reference Range Interpretation Comments Lymphocytes # (test code = Lymphocytes 1.1 1.0-5.5 #) [facility] CenterHyqhaqmDMZDCZNSIO9775-43-65 10:02:00 Test Item Value Reference Range Interpretation Comments Basophils (test code = Basophils) 0.7 <=1.0 [facility] CenterLnflyonQQMTUMIPOZ7705-81-25 10:02:00 Test Item Value Reference Range Interpretation Comments Segs-Bands # (test code = Segs-Bands #) 7.8 1.5-8.1 [facility] CenterBsfknowPTBCLMCAES3242-73-41 10:02:00 Test Item Value Reference Range Interpretation Comments Basophils # (test code = Basophils #) 0.1 <=0.2 [facility] CenterRgbmhpxLYYIQEDMSN9180-36-20 10:02:00 Test Item Value Reference Range Interpretation Comments Lymphocytes (test code = Lymphocytes) 11.1 20.0-40.0 [facility] CenterNbxqrtwABTAJVMPKJ4708-76-20 10:02:00 Test Item Value Reference Range Interpretation Comments Eosinophils (test code = Eosinophils) 1.3 <=4.0 [facility] CenterNbvsvjoQPVSMMQDAD9781-49-07 10:02:00 Test Item Value Reference Range Interpretation Comments Monocytes (test code = Monocytes) 5.9 2.0-12.0 [facility] CenterOjfzvyuIPSRGMPGTX4645-17-59 10:02:00 Test Item Value Reference Range Interpretation Comments MCH (test code = MCH) 33.2 pg 27.0-31.0 [facility] CenterApotiydYZMKESJHQD4887-86-19 10:02:00 Test Item Value Reference Range Interpretation Comments RBC (test code = RBC) 3.30 4.20-5.40 [facility] CenterAbhxeakITTITZCGYL0053-67-25 10:02:00 Test Item Value Reference Range Interpretation Comments Hgb (test code = Hgb) 11.0 12.0-16.0 [facility] CenterJmylsvuKHNNNVBJVI2006-34-84 10:02:00 Test Item Value Reference Range Interpretation Comments Hct (test code = Hct) 30.4 36.0-48.0 [facility] CenterYgpjtcjJKWQPFQJSS4894-48-01 10:02:00 Test Item Value Reference Range Interpretation Comments MCV (test code = MCV) 92.0 80.0-98.0 [facility] CenterYwawbjzPZPIIDFILW3411-17-01 10:02:00 Test Item Value Reference Range Interpretation Comments WBC (test code = WBC) 9.6 3.7-10.4 [facility] CenterFiqopgjGTIOVYAKXS7986-49-86 10:02:00 Test Item Value Reference Range Interpretation Comments RDW (test code = RDW) 14.7 11.5-14.5 [facility] CenterChmqkmaOSRHDGUJPE0593-87-25 10:02:00 Test Item Value Reference Range Interpretation Comments MPV (test code = MPV) 8.6 7.4-10.4 [facility] CenterBrzlegzKHOGGNKGPD0725-10-56 10:02:00 Test Item Value Reference Range Interpretation Comments MCHC (test code = MCHC) 36.1 32.0-36.0 [facility] CenterKkgwmloKSCOPYCHAH7151-57-05 10:02:00 Test Item Value Reference Range Interpretation Comments Platelet (test code = Platelet) 228 133-450 [facility]2018-03-07 20:28:00 Test Item Value Reference Range Interpretation Comments eGFR (test code = eGFR) 97 [facility]2018-03-07 20:28:00 Test Item Value Reference Range Interpretation Comments AGAP (test code = AGAP) 13.3 10.0-20.0 [facility]2018-03-07 20:28:00 Test Item Value Reference Range Interpretation Comments Creatinine Lvl (test code = Creatinine 0.66 0.50-1.40 Lvl) [facility]2018-03-07 20:28:00 Test Item Value Reference Range Interpretation Comments Calcium Lvl (test code = Calcium Lvl) 7.8 8.5-10.5 [facility]2018-03-07 20:28:00 Test Item Value Reference Range Interpretation Comments CO2 (test code = CO2) [facility]2018-03-07 20:28:00 Test Item Value Reference Range Interpretation Comments Potassium Lvl (test code = Potassium 3.3 3.5-5.1 Lvl) [facility]2018-03-07 20:28:00 Test Item Value Reference Range Interpretation Comments Chloride Lvl (test code = Chloride Lvl) 103 95-109 [facility]2018-03-07 20:28:00 Test Item Value Reference Range Interpretation Comments Sodium Lvl (test code = Sodium Lvl) 134 135-145 [facility]2018-03-07 20:28:00 Test Item Value Reference Range Interpretation Comments BUN (test code = BUN) 16 - [facility]2018-03-07 20:28:00 Test Item Value Reference Range Interpretation Comments Glucose Lvl (test code = Glucose Lvl) 141 70-99 [facility]2018-03-07 20:28:00 Test Item Value Reference Range Interpretation Comments eGFR (test code = eGFR) 97 [facility]2018-03-07 20:28:00 Test Item Value Reference Range Interpretation Comments AGAP (test code = AGAP) 13.3 10.0-20.0 [facility]2018-03-07 20:28:00 Test Item Value Reference Range Interpretation Comments Creatinine Lvl (test code = Creatinine 0.66 0.50-1.40 Lvl) [facility]2018-03-07 20:28:00 Test Item Value Reference Range Interpretation Comments Calcium Lvl (test code = Calcium Lvl) 7.8 8.5-10.5 [facility]2018-03-07 20:28:00 Test Item Value Reference Range Interpretation Comments CO2 (test code = CO2) [facility]2018-03-07 20:28:00 Test Item Value Reference Range Interpretation Comments Potassium Lvl (test code = Potassium 3.3 3.5-5.1 Lvl) [facility]2018-03-07 20:28:00 Test Item Value Reference Range Interpretation Comments Chloride Lvl (test code = Chloride Lvl) 103 95-109 [facility]2018-03-07 20:28:00 Test Item Value Reference Range Interpretation Comments Sodium Lvl (test code = Sodium Lvl) 134 135-145 [facility]2018-03-07 20:28:00 Test Item Value Reference Range Interpretation Comments BUN (test code = BUN) 16 7-22 [facility]2018-03-07 20:28:00 Test Item Value Reference Range Interpretation Comments Glucose Lvl (test code = Glucose Lvl) 141 70-99 [facility]2018-03-07 19:19:00 Test Item Value Reference Range Interpretation Comments U Protein (test code = U Protein) 28.4 [facility]2018-03-07 19:19:00 Test Item Value Reference Range Interpretation Comments U Creatinine (test code = U Creatinine) no gt [facility]2018-03-07 19:19:00 Test Item Value Reference Range Interpretation Comments U Prot/Creat (test See Note 1(01/04/18 1:19 code = U Prot/Creat) PM) [facility]2018-03-07 19:19:00 Test Item Value Reference Range Interpretation Comments U Protein (test code = U Protein) 28.4 [facility]2018-03-07 19:19:00 Test Item Value Reference Range Interpretation Comments U Creatinine (test code = U Creatinine) no gt [facility]2018-03-07 19:19:00 Test Item Value Reference Range Interpretation Comments U Prot/Creat (test See Note 1(01/04/18 1:19 code = U Prot/Creat) PM) [facility] ServicesXyqvwstNZOPGMQOEWSH6182-49-82 12:42:00 Test Item Value Reference Range Interpretation Comments Potassium Lvl (test code = Potassium 3.1 3.5-5.1 Lvl) [facility] ServicesFjqgyqbIGUEMVECKCAK1787-58-72 12:42:00 Test Item Value Reference Range Interpretation Comments CO2 (test code = CO2) 18 24-32 [facility] ServicesQlfgkpvUXDVEWWJJWOG7457-80-13 12:42:00 Test Item Value Reference Range Interpretation Comments Sodium Lvl (test code = Sodium Lvl) 135 135-145 [facility] ServicesBpvelkpENJRAUCUCOZS6860-91-27 12:42:00 Test Item Value Reference Range Interpretation Comments Chloride Lvl (test code = Chloride Lvl) 105 95-109 [facility] ServicesEhjrhwkDHSKRUUEULDS9631-47-89 12:42:00 Test Item Value Reference Range Interpretation Comments AGAP (test code = AGAP) 15.1 10.0-20.0 [facility] ServicesGfdlbdgKYIRKOKUFNQH7433-33-82 12:42:00 Test Item Value Reference Range Interpretation Comments Calcium Lvl (test code = Calcium Lvl) 7.5 8.5-10.5 [facility] ServicesKgpgrppNVMPPVWVJRBE7167-76-27 12:42:00 Test Item Value Reference Range Interpretation Comments eGFR (test code = eGFR) 106 [facility] ServicesJyqcxtfIIIKELKTGZWA0446-78-07 12:42:00 Test Item Value Reference Range Interpretation Comments Glucose Lvl (test code = Glucose Lvl) 74 70-99 [facility] ServicesVhlthxmKHOTEPPHKOHO5819-40-63 12:42:00 Test Item Value Reference Range Interpretation Comments Creatinine Lvl (test code = Creatinine 0.50 0.50-1.40 Lvl) [facility] ServicesCopgupxBKPZKXMNUQVC9720-95-35 12:42:00 Test Item Value Reference Range Interpretation Comments BUN (test code = BUN) 18 7-22 [facility]IswkzubVQZLIYEDBPKAL0725-59-04 12:42:00 Test Item Value Reference Range Interpretation Comments Cortisol (test code = Cortisol) 17.9 [facility] CenterZqtzcupMXFAZSAQIG4268-78-39 12:42:00 Test Item Value Reference Range Interpretation Comments MCHC (test code = MCHC) 35.6 32.0-36.0 [facility] CenterKnguazvJJIKTGAXFJ3003-36-95 12:42:00 Test Item Value Reference Range Interpretation Comments RDW (test code = RDW) 14.2 11.5-14.5 [facility] CenterRtztjfpHDVWYYGMIO4216-37-35 12:42:00 Test Item Value Reference Range Interpretation Comments Platelet (test code = Platelet) 244 133-450 [facility] CenterWtffkzjICDNFJDVZK5897-48-52 12:42:00 Test Item Value Reference Range Interpretation Comments MPV (test code = MPV) 8.7 7.4-10.4 [facility] CenterVorinmuHPLGOHOVWT5812-83-89 12:42:00 Test Item Value Reference Range Interpretation Comments MCH (test code = MCH) 32.6 pg 27.0-31.0 [facility] CenterEztlpvfNVCIJWZOKY0972-27-19 12:42:00 Test Item Value Reference Range Interpretation Comments Hgb (test code = Hgb) 10.4 12.0-16.0 [facility] CenterWavjvijXETRCBIVAR8998-54-79 12:42:00 Test Item Value Reference Range Interpretation Comments RBC (test code = RBC) 3.18 4.20-5.40 [facility] CenterZwmrljoMJKVQULOID4875-39-04 12:42:00 Test Item Value Reference Range Interpretation Comments Hct (test code = Hct) 29.2 36.0-48.0 [facility] CenterUdsolugJHGIOOYWWG1573-31-97 12:42:00 Test Item Value Reference Range Interpretation Comments MCV (test code = MCV) 91.7 80.0-98.0 [facility] CenterBfmhletJFPJTQYLHG5715-25-03 12:42:00 Test Item Value Reference Range Interpretation Comments WBC (test code = WBC) 9.4 3.7-10.4 [facility] CenterFltdytbJHQMJYUWYM3134-77-41 12:42:00 Test Item Value Reference Range Interpretation Comments Basophils (test code = Basophils) 0.6 <=1.0 [facility] CenterTqrxbnvJJDGDISLGD4929-72-69 12:42:00 Test Item Value Reference Range Interpretation Comments Lymphocytes (test code = Lymphocytes) 9.2 20.0-40.0 [facility] CenterJnbayzeRCZOOOYXEE6975-72-74 12:42:00 Test Item Value Reference Range Interpretation Comments Eosinophils (test code = Eosinophils) 1.1 <=4.0 [facility] CenterCalalbsSGHQQZJUNY2586-51-46 12:42:00 Test Item Value Reference Range Interpretation Comments Monocytes (test code = Monocytes) 7.5 2.0-12.0 [facility] CenterIjcpaggLKHJOVSKHB0959-66-33 12:42:00 Test Item Value Reference Range Interpretation Comments Segs (test code = Segs) 81.6 45.0-75.0 [facility] CenterGdbnliyKAZYMBWAND1311-98-91 12:42:00 Test Item Value Reference Range Interpretation Comments Segs-Bands # (test code = Segs-Bands #) 7.6 1.5-8.1 [facility] CenterUllwtieDNTLTDRJLD6431-88-35 12:42:00 Test Item Value Reference Range Interpretation Comments Monocytes # (test code = Monocytes #) 0.7 <=0.8 [facility] CenterXgxhevhMKBSHPVPAT1065-09-76 12:42:00 Test Item Value Reference Range Interpretation Comments Eosinophils # (test code = Eosinophils 0.1 <=0.5 #) [facility] CenterMkllbahSKOUSZCFSX7907-72-57 12:42:00 Test Item Value Reference Range Interpretation Comments Basophils # (test code = Basophils #) 0.1 <=0.2 [facility] [id number] 12:42:00 Test Item Value Reference Range Interpretation Comments Lymphocytes # (test code = Lymphocytes 0.9 1.0-5.5 #) [facility] ServicesJdoothdYTZNZDIBCMFN8547-05-29 12:42:00 Test Item Value Reference Range Interpretation Comments Potassium Lvl (test code = Potassium 3.1 3.5-5.1 Lvl) [facility] ServicesZczehbdZNEGRFTTRPLU1527-45-09 12:42:00 Test Item Value Reference Range Interpretation Comments CO2 (test code = CO2) 18 24-32 [facility] ServicesGysphdmGWFLRXIFXKGY4903-69-84 12:42:00 Test Item Value Reference Range Interpretation Comments Sodium Lvl (test code = Sodium Lvl) 135 135-145 [facility] ServicesErhstdxXCVYYMVQAYRR7879-37-82 12:42:00 Test Item Value Reference Range Interpretation Comments Chloride Lvl (test code = Chloride Lvl) 105 95-109 [facility] ServicesRzgqdnsFWLODTCCGAGH2139-33-64 12:42:00 Test Item Value Reference Range Interpretation Comments AGAP (test code = AGAP) 15.1 10.0-20.0 [facility] ServicesFpxkwcnIFKRICWIRADZ2004-33-94 12:42:00 Test Item Value Reference Range Interpretation Comments Calcium Lvl (test code = Calcium Lvl) 7.5 8.5-10.5 [facility] ServicesGshzxpwQUOMNVXWFEZM9592-80-23 12:42:00 Test Item Value Reference Range Interpretation Comments eGFR (test code = eGFR) 106 [facility] ServicesBaldmdrLJTIHPSIEHPX9960-93-77 12:42:00 Test Item Value Reference Range Interpretation Comments Glucose Lvl (test code = Glucose Lvl) 74 70-99 [facility] ServicesInraoleSYASWVTZQJCF9328-71-65 12:42:00 Test Item Value Reference Range Interpretation Comments Creatinine Lvl (test code = Creatinine 0.50 0.50-1.40 Lvl) [facility] ServicesBtednzjPLLDBBUMMYJW0901-43-53 12:42:00 Test Item Value Reference Range Interpretation Comments BUN (test code = BUN) 18 7-22 [facility]HsqxnpqBRMMIPJTWAVPF9712-14-38 12:42:00 Test Item Value Reference Range Interpretation Comments Cortisol (test code = Cortisol) 17.9 [facility] CenterAmjztnnMCKYYGQOEK0242-31-44 12:42:00 Test Item Value Reference Range Interpretation Comments MCHC (test code = MCHC) 35.6 32.0-36.0 [facility] CenterXiaakylHQWDQXLFTV7111-81-46 12:42:00 Test Item Value Reference Range Interpretation Comments RDW (test code = RDW) 14.2 11.5-14.5 [facility] CenterMqczvpdXMVBMWUCUI4605-29-85 12:42:00 Test Item Value Reference Range Interpretation Comments Platelet (test code = Platelet) 244 133-450 [facility] CenterIhsnmdaUPZVATWCKC4887-13-25 12:42:00 Test Item Value Reference Range Interpretation Comments MPV (test code = MPV) 8.7 7.4-10.4 [facility] CenterOobsmmxJSWMEOSUDO5253-29-57 12:42:00 Test Item Value Reference Range Interpretation Comments MCH (test code = MCH) 32.6 pg 27.0-31.0 [facility] CenterPzgbmrgMBEUYCAVSR2190-98-32 12:42:00 Test Item Value Reference Range Interpretation Comments Hgb (test code = Hgb) 10.4 12.0-16.0 [facility] CenterXprqnuiXQHYYTFXWL8048-83-91 12:42:00 Test Item Value Reference Range Interpretation Comments RBC (test code = RBC) 3.18 4.20-5.40 [facility] CenterIeiffocLDWZCYAXSY6031-57-05 12:42:00 Test Item Value Reference Range Interpretation Comments Hct (test code = Hct) 29.2 36.0-48.0 [facility] CenterCmnxemqDSHFKHVBOR5133-59-79 12:42:00 Test Item Value Reference Range Interpretation Comments MCV (test code = MCV) 91.7 80.0-98.0 [facility] CenterJqdnoztWXCPVXVMLV3705-41-90 12:42:00 Test Item Value Reference Range Interpretation Comments WBC (test code = WBC) 9.4 3.7-10.4 [facility] CenterCfoipnmELMZAHKOUK0569-74-54 12:42:00 Test Item Value Reference Range Interpretation Comments Basophils (test code = Basophils) 0.6 <=1.0 [facility] CenterDubrmpuAGYRFUNZJJ9993-53-88 12:42:00 Test Item Value Reference Range Interpretation Comments Lymphocytes (test code = Lymphocytes) 9.2 20.0-40.0 [facility] CenterYkbipifJUBDYXOQSD1997-87-78 12:42:00 Test Item Value Reference Range Interpretation Comments Eosinophils (test code = Eosinophils) 1.1 <=4.0 [facility] CenterTxrgdvoPDWXRRJHOP3664-62-63 12:42:00 Test Item Value Reference Range Interpretation Comments Monocytes (test code = Monocytes) 7.5 2.0-12.0 [facility] CenterFmhbktwGKADVDXYRU8288-11-98 12:42:00 Test Item Value Reference Range Interpretation Comments Segs (test code = Segs) 81.6 45.0-75.0 [facility] CenterVorultePYHAXSWEJW5623-61-73 12:42:00 Test Item Value Reference Range Interpretation Comments Segs-Bands # (test code = Segs-Bands #) 7.6 1.5-8.1 [facility] CenterHxusbuoZFYNFCKMGR4515-19-61 12:42:00 Test Item Value Reference Range Interpretation Comments Monocytes # (test code = Monocytes #) 0.7 <=0.8 [facility] CenterQyqxewzIWGNAUKNCI6000-00-08 12:42:00 Test Item Value Reference Range Interpretation Comments Eosinophils # (test code = Eosinophils 0.1 <=0.5 #) [facility] CenterYzuvjnlKMDJJLGOPY9524-54-20 12:42:00 Test Item Value Reference Range Interpretation Comments Basophils # (test code = Basophils #) 0.1 <=0.2 [facility] CenterJvofmuyRGIKNGIFNW1963-25-82 12:42:00 Test Item Value Reference Range Interpretation Comments Lymphocytes # (test code = Lymphocytes 0.9 1.0-5.5 #) [facility]2018-03-07 12:30:00 Test Item Value Reference Range Interpretation Comments Magnesium Lvl (test code = Magnesium 2.3 1.8-2.4 Lvl) [facility]2018-03-07 12:30:00 Test Item Value Reference Range Interpretation Comments Magnesium Lvl (test code = Magnesium 2.3 1.8-2.4 Lvl) [facility]2018-03-07 05:52:00 Test Item Value Reference Range Interpretation Comments Magnesium Lvl (test code = Magnesium 2.3 1.8-2.4 Lvl) [facility]2018-03-07 05:52:00 Test Item Value Reference Range Interpretation Comments Magnesium Lvl (test code = Magnesium 2.3 1.8-2.4 Lvl) [facility]2018-03-06 22:47:00 Test Item Value Reference Range Interpretation Comments Vitamin D, 25-OH, Total (test code = 5.8 30.0-100.0 Vitamin D, 25-OH, Total) [facility]2018-03-06 22:47:00 Test Item Value Reference Range Interpretation Comments Osmolality (test code = Osmolality) 280 280-300 [facility]2018-03-06 22:47:00 Test Item Value Reference Range Interpretation Comments Uric Acid (test code = Uric Acid) 12.4 2.5-7.0 [place] [id number] 22:47:00 Test Item Value Reference Range Interpretation Comments Aldosterone (test code = Aldosterone) 9.1 <=30.0 [place] [id number] 22:47:00 Test Item Value Reference Range Interpretation Comments Renin Activity (test code = Renin 18.981 0.167-5.380 Activity) [facility]2018-03-06 22:47:00 Test Item Value Reference Range Interpretation Comments Vitamin D, 25-OH, Total (test code = 5.8 30.0-100.0 Vitamin D, 25-OH, Total) [facility]2018-03-06 22:47:00 Test Item Value Reference Range Interpretation Comments Osmolality (test code = Osmolality) 280 280-300 [facility]2018-03-06 22:47:00 Test Item Value Reference Range Interpretation Comments Uric Acid (test code = Uric Acid) 12.4 2.5-7.0 [place] [id number] 22:47:00 Test Item Value Reference Range Interpretation Comments Aldosterone (test code = Aldosterone) 9.1 <=30.0 [place] [id number] 22:47:00 Test Item Value Reference Range Interpretation Comments Renin Activity (test code = Renin 18.981 0.167-5.380 Activity) [facility] AND [id number] 21:54:00 Test Item Value Reference Range Interpretation Comments UA Urobilinogen (test code = UA <=1.0 mg/dL 0.1-1.0 Urobilinogen) [facility] AND [id number] 21:54:00 Test Item Value Reference Range Interpretation Comments UA Ketones (test code = UA Trace mg/dL Ketones) [facility] AND [id number] 21:54:00 Test Item Value Reference Range Interpretation Comments UA Glucose (test code = UA Negative mg/dL Glucose) [facility] AND [id number] 21:54:00 Test Item Value Reference Range Interpretation Comments UA Protein (test code = UA Negative mg/dL Protein) [facility] AND [id number] 21:54:00 Test Item Value Reference Range Interpretation Comments UA Hyal Cast (test code = UA Hyal Cast) 1 <=2 [facility] AND [id number] 21:54:00 Test Item Value Reference Range Interpretation Comments UA Bili (test code = Negative *NA*(01/03/18 UA Bili) 3:54 PM) [facility] AND [id number] 21:54:00 Test Item Value Reference Range Interpretation Comments UA pH (test code = UA pH) 6.0 1 5.0-8.0 [facility] AND [id number] 21:54:00 Test Item Value Reference Range Interpretation Comments UA Leuk Est (test Negative (01/03/18 3:54 code = UA Leuk Est) PM) [facility] AND [id number] 21:54:00 Test Item Value Reference Range Interpretation Comments UA Blood (test code = Moderate *ABN*(01/03/18 UA Blood) 3:54 PM) [facility] AND [id number] 21:54:00 Test Item Value Reference Range Interpretation Comments UA Sq Epi (test code = UA Sq Epi) Few /LPF [facility] AND [id number] 21:54:00 Test Item Value Reference Range Interpretation Comments UA WBC (test code = UA WBC) 1 <=5 [facility] AND [id number] 21:54:00 Test Item Value Reference Range Interpretation Comments UA RBC (test code = UA RBC) 2 <=2 [facility] AND [id number] 21:54:00 Test Item Value Reference Range Interpretation Comments UA Nitrite (test code Negative (01/03/18 3:54 = UA Nitrite) PM) [facility] AND [id number] 21:54:00 Test Item Value Reference Range Interpretation Comments UA Color (test code = Yellow *NA*(01/03/18 3:54 UA Color) PM) [facility] AND [id number] 21:54:00 Test Item Value Reference Range Interpretation Comments UA Spec Grav (test code = UA Spec 1.008 1 Grav) [facility] AND [id number] 21:54:00 Test Item Value Reference Range Interpretation Comments UA Turbidity (test code = Clear (01/03/18 3:54 UA Turbidity) PM) [facility]2018-03-06 21:54:00 Test Item Value Reference Range Interpretation Comments U Calcium (test code = U Calcium) <5.0 mg/dL [facility]2018-03-06 21:54:00 Test Item Value Reference Range Interpretation Comments U Glucose (test code = U Glucose) 3 [facility]2018-03-06 21:54:00 Test Item Value Reference Range Interpretation Comments U Magnesium (test code = U Magnesium) 3.8 [facility]2018-03-06 21:54:00 Test Item Value Reference Range Interpretation Comments U Protein (test code = U Protein) 44.7 [facility]2018-03-06 21:54:00 Test Item Value Reference Range Interpretation Comments U Creatinine (test code = U Creatinine) 25.50 [facility]2018-03-06 21:54:00 Test Item Value Reference Range Interpretation Comments U Prot/Creat (test code = U 1.75 1 Prot/Creat) [facility]2018-03-06 21:54:00 Test Item Value Reference Range Interpretation Comments U Osmolality (test code = U Osmolality) 310 300-800 [facility]2018-03-06 21:54:00 Test Item Value Reference Range Interpretation Comments U Chloride (test code = U Chloride) 91 [facility]2018-03-06 21:54:00 Test Item Value Reference Range Interpretation Comments U Potassium (test code = U Potassium) 46.2 [facility]2018-03-06 21:54:00 Test Item Value Reference Range Interpretation Comments U Sodium (test code = U Sodium) 41 [facility]2018-03-06 21:54:00 Test Item Value Reference Range Interpretation Comments UA Urobilinogen (test code = UA <=1.0 mg/dL 0.1-1.0 Urobilinogen) [facility] AND [id number] 21:54:00 Test Item Value Reference Range Interpretation Comments UA Ketones (test code = UA Trace mg/dL Ketones) [facility] AND [id number] 21:54:00 Test Item Value Reference Range Interpretation Comments UA Glucose (test code = UA Negative mg/dL Glucose) [facility] AND [id number] 21:54:00 Test Item Value Reference Range Interpretation Comments UA Protein (test code = UA Negative mg/dL Protein) [facility] AND [id number] 21:54:00 Test Item Value Reference Range Interpretation Comments UA Hyal Cast (test code = UA Hyal Cast) 1 <=2 [facility] AND [id number] 21:54:00 Test Item Value Reference Range Interpretation Comments UA Bili (test code = Negative *NA*(01/03/18 UA Bili) 3:54 PM) [facility] AND [id number] 21:54:00 Test Item Value Reference Range Interpretation Comments UA pH (test code = UA pH) 6.0 1 5.0-8.0 [facility] AND [id number] 21:54:00 Test Item Value Reference Range Interpretation Comments UA Leuk Est (test Negative (01/03/18 3:54 code = UA Leuk Est) PM) [facility] AND [id number] 21:54:00 Test Item Value Reference Range Interpretation Comments UA Blood (test code = Moderate *ABN*(01/03/18 UA Blood) 3:54 PM) [facility] AND [id number] 21:54:00 Test Item Value Reference Range Interpretation Comments UA Sq Epi (test code = UA Sq Epi) Few /LPF [facility] AND [id number] 21:54:00 Test Item Value Reference Range Interpretation Comments UA WBC (test code = UA WBC) 1 <=5 [facility] AND [id number] 21:54:00 Test Item Value Reference Range Interpretation Comments UA RBC (test code = UA RBC) 2 <=2 [facility] AND [id number] 21:54:00 Test Item Value Reference Range Interpretation Comments UA Nitrite (test code Negative (01/03/18 3:54 = UA Nitrite) PM) [facility] AND [id number] 21:54:00 Test Item Value Reference Range Interpretation Comments UA Color (test code = Yellow *NA*(01/03/18 3:54 UA Color) PM) [facility] AND [id number] 21:54:00 Test Item Value Reference Range Interpretation Comments UA Spec Grav (test code = UA Spec 1.008 1 Grav) [facility] AND [id number] 21:54:00 Test Item Value Reference Range Interpretation Comments UA Turbidity (test code = Clear (01/03/18 3:54 UA Turbidity) PM) [facility]2018-03-06 21:54:00 Test Item Value Reference Range Interpretation Comments U Calcium (test code = U Calcium) <5.0 mg/dL [facility]2018-03-06 21:54:00 Test Item Value Reference Range Interpretation Comments U Glucose (test code = U Glucose) 3 [facility]2018-03-06 21:54:00 Test Item Value Reference Range Interpretation Comments U Magnesium (test code = U Magnesium) 3.8 [facility]2018-03-06 21:54:00 Test Item Value Reference Range Interpretation Comments U Protein (test code = U Protein) 44.7 [facility]2018-03-06 21:54:00 Test Item Value Reference Range Interpretation Comments U Creatinine (test code = U Creatinine) 25.50 [facility]2018-03-06 21:54:00 Test Item Value Reference Range Interpretation Comments U Prot/Creat (test code = U 1.75 1 Prot/Creat) [facility]2018-03-06 21:54:00 Test Item Value Reference Range Interpretation Comments U Osmolality (test code = U Osmolality) 310 300-800 [facility]2018-03-06 21:54:00 Test Item Value Reference Range Interpretation Comments U Chloride (test code = U Chloride) 91 [facility]2018-03-06 21:54:00 Test Item Value Reference Range Interpretation Comments U Potassium (test code = U Potassium) 46.2 [facility]2018-03-06 21:54:00 Test Item Value Reference Range Interpretation Comments U Sodium (test code = U Sodium) 41 [id number] 16:10:00 Test Item Value Reference Range Interpretation Comments Plt Morph (test code = Normal (01/03/18 10:10 Plt Morph) AM) [facility] CenterBikeuilWUZACEGXJI4527-89-74 16:10:00 Test Item Value Reference Range Interpretation Comments Segs-Bands # (test code = Segs-Bands #) 12.3 1.5-8.1 [facility] C[id number] 16:10:00 Test Item Value Reference Range Interpretation Comments Lymphocytes # (test code = Lymphocytes 0.9 1.0-5.5 #) [facility] CenterSifaskyCURDVSUDVC1908-89-51 16:10:00 Test Item Value Reference Range Interpretation Comments Monocytes # (test code = Monocytes #) 1.1 <=0.8 [facility] CenterFwlenyiZZFDMTWPTD8458-01-48 16:10:00 Test Item Value Reference Range Interpretation Comments Segs (test code = Segs) 84.0 45.0-75.0 [facility] Cent[id number] 16:10:00 Test Item Value Reference Range Interpretation Comments Bands (test code = Bands) 2.0 <=11.0 [facility]GcyltxzGFPKJLDDUG1713-58-91 16:10:00 Test Item Value Reference Range Interpretation Comments Lymphocytes (test code = Lymphocytes) 6.0 20.0-40.0 [facility] CenterNtwplybOJNUGENEHF7644-93-18 16:10:00 Test Item Value Reference Range Interpretation Comments Monocytes (test code = Monocytes) 8.0 2.0-12.0 [facility] CenterEhynemlMNTNJLARGE0419-40-63 16:10:00 Test Item Value Reference Range Interpretation Comments Atypical Lymphs (test code = Atypical 0.0 Lymphs) [facility] CenterFxxqjcwDGGMHEBZXQ9720-73-90 16:10:00 Test Item Value Reference Range Interpretation Comments RBC Morph (test code = Normal (01/03/18 10:10 RBC Morph) AM) [facility] CenterVbwivzjCEPHEYQMOW5445-25-92 16:10:00 Test Item Value Reference Range Interpretation Comments MPV (test code = MPV) 9.0 7.4-10.4 [facility] CenterLorbmvtSNZUHGJUNS9225-57-00 16:10:00 Test Item Value Reference Range Interpretation Comments Platelet (test code = Platelet) 309 133-450 [facility] CenterHynrlawYEUJIVAPGT4478-55-66 16:10:00 Test Item Value Reference Range Interpretation Comments MCHC (test code = MCHC) 36.4 32.0-36.0 [facility] CenterZqrazvhIAJJCIXWWK1690-59-26 16:10:00 Test Item Value Reference Range Interpretation Comments RDW (test code = RDW) 14.2 11.5-14.5 [facility] CenterYfmcagpIOVWIGBBRN1867-45-69 16:10:00 Test Item Value Reference Range Interpretation Comments MCV (test code = MCV) 90.2 80.0-98.0 [facility] CenterYifiupgNKIFMXPWTB8172-68-84 16:10:00 Test Item Value Reference Range Interpretation Comments MCH (test code = MCH) 32.8 pg 27.0-31.0 [facility] CenterWylsevrFAMGOCPYSF9721-14-95 16:10:00 Test Item Value Reference Range Interpretation Comments Hct (test code = Hct) 33.5 36.0-48.0 [facility] CenterPryixmcDTVWAASPFI7532-34-51 16:10:00 Test Item Value Reference Range Interpretation Comments Hgb (test code = Hgb) 12.2 12.0-16.0 [facility] CenterRfqgupkEBJWYKTIAG9613-65-18 16:10:00 Test Item Value Reference Range Interpretation Comments RBC (test code = RBC) 3.72 4.20-5.40 [facility] CenterAzbwkjjPBCUXGFKHI0991-54-62 16:10:00 Test Item Value Reference Range Interpretation Comments WBC (test code = WBC) 14.3 3.7-10.4 [facility] CenterUcqfwmsRDVVLNNUFR2288-37-16 16:10:00 Test Item Value Reference Range Interpretation Comments Plt Morph (test code = Normal (01/03/18 10:10 Plt Morph) AM) [facility] CenterCqmixeiWVLHYFQVJD6066-20-45 16:10:00 Test Item Value Reference Range Interpretation Comments Segs-Bands # (test code = Segs-Bands #) 12.3 1.5-8.1 [facility] CenterWsvpvktYEEYQSJRWA1884-12-76 16:10:00 Test Item Value Reference Range Interpretation Comments Lymphocytes # (test code = Lymphocytes 0.9 1.0-5.5 #) [facility] CenterMrvkkfaCRPVMKKZNO3461-10-27 16:10:00 Test Item Value Reference Range Interpretation Comments Monocytes # (test code = Monocytes #) 1.1 <=0.8 [facility] CenterRyselggQANSIUXPUP7861-82-19 16:10:00 Test Item Value Reference Range Interpretation Comments Segs (test code = Segs) 84.0 45.0-75.0 [facility] CenterVkccamyOCZYVYXHML6689-77-87 16:10:00 Test Item Value Reference Range Interpretation Comments Bands (test code = Bands) 2.0 <=11.0 [facility] CenterYfmglcnNGQIURJTLY1179-20-85 16:10:00 Test Item Value Reference Range Interpretation Comments Lymphocytes (test code = Lymphocytes) 6.0 20.0-40.0 [facility] CenterOjufiodBFZDKNWPDU8135-95-19 16:10:00 Test Item Value Reference Range Interpretation Comments Monocytes (test code = Monocytes) 8.0 2.0-12.0 [facility] CenterUvjlvywXRWXLQHHJW5920-55-81 16:10:00 Test Item Value Reference Range Interpretation Comments Atypical Lymphs (test code = Atypical 0.0 Lymphs) [facility] CenterDgscsasEPJBPQAZCM3631-97-49 16:10:00 Test Item Value Reference Range Interpretation Comments RBC Morph (test code = Normal (01/03/18 10:10 RBC Morph) AM) [facility] CenterXmyngjxAIDKDFDOCP0441-15-00 16:10:00 Test Item Value Reference Range Interpretation Comments MPV (test code = MPV) 9.0 7.4-10.4 [facility] CenterZrscnauYWALUFAUEP1170-07-12 16:10:00 Test Item Value Reference Range Interpretation Comments Platelet (test code = Platelet) 309 133-450 [facility] CenterXyvaqhiRRHWVIQLGL7937-46-51 16:10:00 Test Item Value Reference Range Interpretation Comments MCHC (test code = MCHC) 36.4 32.0-36.0 [facility] CenterKtbkbumFSDJKLFWTX8973-21-30 16:10:00 Test Item Value Reference Range Interpretation Comments RDW (test code = RDW) 14.2 11.5-14.5 [facility] CenterJdetadaHGADKTGKUB0188-49-93 16:10:00 Test Item Value Reference Range Interpretation Comments MCV (test code = MCV) 90.2 80.0-98.0 [facility] CenterXfatkaxQJAXUBXDKL8530-59-58 16:10:00 Test Item Value Reference Range Interpretation Comments MCH (test code = MCH) 32.8 pg 27.0-31.0 [facility] CenterQhmpqakUWBMSAVMFX0421-49-95 16:10:00 Test Item Value Reference Range Interpretation Comments Hct (test code = Hct) 33.5 36.0-48.0 [facility] HospitalFxuswxuPOTUFMUGJB2448-31-40 16:10:00 Test Item Value Reference Range Interpretation Comments Hgb (test code = Hgb) 12.2 12.0-16.0 [facility] CenterWzfyzbkHUGVKOFOSG4665-21-99 16:10:00 Test Item Value Reference Range Interpretation Comments RBC (test code = RBC) 3.72 4.20-5.40 [facility] CenterJmlwnpbNFYZIPJMIV8241-49-65 16:10:00 Test Item Value Reference Range Interpretation Comments WBC (test code = WBC) 14.3 3.7-10.4 [facility] CenterDanal d/b/a [employer] [id number] 13:48:00 Test Item Value Reference Range Interpretation Comments Total CK (test code = Total CK) 368 12 [facility] CenterD[facility] [employer] [id number] 13:48:00 Test Item Value Reference Range Interpretation Comments Troponin-I (test code = Troponin-I) 0.23 <=0.40 [facility] CenterD[facility] [employer] [id number] 13:48:00 Test Item Value Reference Range Interpretation Comments CK MB (test code = CK MB) 15.2 0.5-3.6 [facility] CenterDanal [facility] [employer] [id number] 13:48:00 Test Item Value Reference Range Interpretation Comments CK MB Index (test code = CK MB Index) 4.1 1 <=2.5 [facility] [employer] [id number] 13:48:00 Test Item Value Reference Range Interpretation Comments Total CK (test code = Total CK) 368 12-191 [facility] [employer] [id number] 13:48:00 Test Item Value Reference Range Interpretation Comments Troponin-I (test code = Troponin-I) 0.23 <=0.40 [facility] [employer] [id number] 13:48:00 Test Item Value Reference Range Interpretation Comments CK MB (test code = CK MB) 15.2 0.5-3.6 [facility] [employer] [id number] 13:48:00 Test Item Value Reference Range Interpretation Comments CK MB Index (test code = CK MB Index) 4.1 1 <=2.5 [facility] AND [id number] 10:00:00 Test Item Value Reference Range Interpretation Comments UA Urobilinogen (test code = UA <=1.0 mg/dL 0.1-1.0 Urobilinogen) [facility] AND [id number] 10:00:00 Test Item Value Reference Range Interpretation Comments UA pH (test code = UA pH) 5.0 1 5.0-8.0 [facility] AND [id number] 10:00:00 Test Item Value Reference Range Interpretation Comments UA Spec Grav (test code = UA Spec 1.012 1 Grav) [facility] AND [id number] 10:00:00 Test Item Value Reference Range Interpretation Comments UA Glucose (test code = UA Negative mg/dL Glucose) [facility] AND [id number] 10:00:00 Test Item Value Reference Range Interpretation Comments UA Protein (test code = UA Protein) 30 mg/dL [facility] AND [id number] 10:00:00 Test Item Value Reference Range Interpretation Comments UA Ketones (test code = UA Trace mg/dL Ketones) [facility] AND [id number] 10:00:00 Test Item Value Reference Range Interpretation Comments UA Blood (test code = Moderate *ABN*(01/03/18 UA Blood) 4:00 AM) [facility] AND [id number] 10:00:00 Test Item Value Reference Range Interpretation Comments Micro? (test code = Performed *NA*(01/03/18 Micro?) 4:00 AM) [facility] AND [id number] 10:00:00 Test Item Value Reference Range Interpretation Comments UA Mucus (test code = UA Mucus) Few /LPF [facility] AND [id number] 10:00:00 Test Item Value Reference Range Interpretation Comments UA Leuk Est (test Negative (01/03/18 4:00 code = UA Leuk Est) AM) [facility] AND [id number] 10:00:00 Test Item Value Reference Range Interpretation Comments UA RBC (test code = UA RBC) 1 <=2 [facility] AND [id number] 10:00:00 Test Item Value Reference Range Interpretation Comments UA Sq Epi (test code = UA Sq Occasional /LPF Epi) [facility] AND [id number] 10:00:00 Test Item Value Reference Range Interpretation Comments UA Hyal Cast (test code = UA Hyal Cast) 4 <=2 [facility] AND [id number] 10:00:00 Test Item Value Reference Range Interpretation Comments UA Bili (test code = Negative *NA*(01/03/18 UA Bili) 4:00 AM) [facility] AND [id number] 10:00:00 Test Item Value Reference Range Interpretation Comments UA Nitrite (test code Negative (01/03/18 4:00 = UA Nitrite) AM) [facility] AND [id number] 10:00:00 Test Item Value Reference Range Interpretation Comments UA Color (test code = Yellow *NA*(01/03/18 4:00 UA Color) AM) [facility] AND [id number] 10:00:00 Test Item Value Reference Range Interpretation Comments UA Turbidity (test code = Clear (01/03/18 4:00 UA Turbidity) AM) [facility] [id number] 10:00:00 Test Item Value Reference Range Interpretation Comments U Osmolality (test code = U Osmolality) 335 300-800 [facility] [id number] 10:00:00 Test Item Value Reference Range Interpretation Comments U Sodium (test code = U Sodium) 44 [facility] AND [id number] 10:00:00 Test Item Value Reference Range Interpretation Comments UA Urobilinogen (test code = UA <=1.0 mg/dL 0.1-1.0 Urobilinogen) [facility] AND [id number] 10:00:00 Test Item Value Reference Range Interpretation Comments UA pH (test code = UA pH) 5.0 1 5.0-8.0 [facility] AND [id number] 10:00:00 Test Item Value Reference Range Interpretation Comments UA Spec Grav (test code = UA Spec 1.012 1 Grav) [facility] AND [id number] 10:00:00 Test Item Value Reference Range Interpretation Comments UA Glucose (test code = UA Negative mg/dL Glucose) [facility] AND [id number] 10:00:00 Test Item Value Reference Range Interpretation Comments UA Protein (test code = UA Protein) 30 mg/dL [facility] AND [id number] 10:00:00 Test Item Value Reference Range Interpretation Comments UA Ketones (test code = UA Trace mg/dL Ketones) [facility] AND [id number] 10:00:00 Test Item Value Reference Range Interpretation Comments UA Blood (test code = Moderate *ABN*(01/03/18 UA Blood) 4:00 AM) [facility] AND [id number] 10:00:00 Test Item Value Reference Range Interpretation Comments Micro? (test code = Performed *NA*(01/03/18 Micro?) 4:00 AM) [facility] AND [id number] 10:00:00 Test Item Value Reference Range Interpretation Comments UA Mucus (test code = UA Mucus) Few /LPF [facility] AND [id number] 10:00:00 Test Item Value Reference Range Interpretation Comments UA Leuk Est (test Negative (01/03/18 4:00 code = UA Leuk Est) AM) [facility] AND [id number] 10:00:00 Test Item Value Reference Range Interpretation Comments UA RBC (test code = UA RBC) 1 <=2 [facility] AND [id number] 10:00:00 Test Item Value Reference Range Interpretation Comments UA Sq Epi (test code = UA Sq Occasional /LPF Epi) [facility] AND [id number] 10:00:00 Test Item Value Reference Range Interpretation Comments UA Hyal Cast (test code = UA Hyal Cast) 4 <=2 [facility] AND [id number] 10:00:00 Test Item Value Reference Range Interpretation Comments UA Bili (test code = Negative *NA*(01/03/18 UA Bili) 4:00 AM) [facility] AND [id number] 10:00:00 Test Item Value Reference Range Interpretation Comments UA Nitrite (test code Negative (01/03/18 4:00 = UA Nitrite) AM) [facility] AND [id number] 10:00:00 Test Item Value Reference Range Interpretation Comments UA Color (test code = Yellow *NA*(01/03/18 4:00 UA Color) AM) [facility] AND [id number] 10:00:00 Test Item Value Reference Range Interpretation Comments UA Turbidity (test code = Clear (01/03/18 4:00 UA Turbidity) AM) [facility] [id number] 10:00:00 Test Item Value Reference Range Interpretation Comments U Osmolality (test code = U Osmolality) 335 300-800 [facility] [id number] 10:00:00 Test Item Value Reference Range Interpretation Comments U Sodium (test code = U Sodium) 44 [facility] [employer] [id number] 08:51:00 Test Item Value Reference Range Interpretation Comments CK MB Index (test code = CK MB Index) 4.5 1 <=2.5 [facility] [id number] 08:51:00 Test Item Value Reference Range Interpretation Comments CK MB (test code = CK MB) 18.8 0.5-3.6 [facility] [employer] [id number] 08:51:00 Test Item Value Reference Range Interpretation Comments Troponin-I (test code = Troponin-I) 0.25 <=0.40 [facility] [id number] 08:51:00 Test Item Value Reference Range Interpretation Comments Total CK (test code = Total CK) 414 12-191 [employer] [id number] 08:51:00 Test Item Value Reference Range Interpretation Comments Phosphorus (test code = Phosphorus) 2.2 2.5-4.5 [facility] [id number] 08:51:00 Test Item Value Reference Range Interpretation Comments Osmolality (test code = Osmolality) 272 280-300 [facility] [employer] [id number] 08:51:00 Test Item Value Reference Range Interpretation Comments AST (test code = AST) 51 <=37 [facility] [id number] 08:51:00 Test Item Value Reference Range Interpretation Comments ALT (test code = ALT) 16 <=65 [facility] [id number] 08:51:00 Test Item Value Reference Range Interpretation Comments Alk Phos (test code = Alk Phos) 92 39-136 [employer] [id number] 08:51:00 Test Item Value Reference Range Interpretation Comments A/G Ratio (test code = A/G Ratio) 0.8 1 0.7-1.6 [facility] [employer] [id number] 08:51:00 Test Item Value Reference Range Interpretation Comments Globulin (test code = Globulin) 3.7 2.7-4.2 [facility] [employer] [id number] 08:51:00 Test Item Value Reference Range Interpretation Comments Bili Total (test code = Bili Total) 0.5 0.2-1.3 [facility] [employer] [id number] 08:51:00 Test Item Value Reference Range Interpretation Comments Total Protein (test code = Total 6.7 6.4-8.4 Protein) [facility] [employer] [id number] 08:51:00 Test Item Value Reference Range Interpretation Comments Albumin Lvl (test code = Albumin Lvl) 3.0 3.5-5.0 [facility] [employer] [id number] 08:51:00 Test Item Value Reference Range Interpretation Comments B/C Ratio (test code = B/C Ratio) 34 1 6-25 [facility] [employer]-IOCARSpace[employer]AC [id number] 08:51:00 Test Item Value Reference Range Interpretation Comments CK MB Index (test code = CK MB Index) 4.5 1 <=2.5 [facility] LocalannCARSpace[facility]AC [id number] 08:51:00 Test Item Value Reference Range Interpretation Comments CK MB (test code = CK MB) 18.8 0.5-3.6 [facility] [employer] [id number] 08:51:00 Test Item Value Reference Range Interpretation Comments Troponin-I (test code = Troponin-I) 0.25 <=0.40 [facility] [id number] 08:51:00 Test Item Value Reference Range Interpretation Comments Total CK (test code = Total CK) 414 12-191 [facility] [employer] [id number] 08:51:00 Test Item Value Reference Range Interpretation Comments Phosphorus (test code = Phosphorus) 2.2 2.5-4.5 [facility] [employer] [id number] 08:51:00 Test Item Value Reference Range Interpretation Comments Osmolality (test code = Osmolality) 272 280-300 [facility] [employer] [id number] 08:51:00 Test Item Value Reference Range Interpretation Comments AST (test code = AST) 51 <=37 [employer] [id number] 08:51:00 Test Item Value Reference Range Interpretation Comments ALT (test code = ALT) 16 <=65 [facility]EC[id number] 08:51:00 Test Item Value Reference Range Interpretation Comments Alk Phos (test code = Alk Phos) 92 39-136 [facility]2018-03-06 08:51:00 Test Item Value Reference Range Interpretation Comments A/G Ratio (test code = A/G Ratio) 0.8 1 0.7-1.6 [facility]2018-03-06 08:51:00 Test Item Value Reference Range Interpretation Comments Globulin (test code = Globulin) 3.7 2.7-4.2 [facility]2018-03-06 08:51:00 Test Item Value Reference Range Interpretation Comments Bili Total (test code = Bili Total) 0.5 0.2-1.3 [facility]2018-03-06 08:51:00 Test Item Value Reference Range Interpretation Comments Total Protein (test code = Total 6.7 6.4-8.4 Protein) [facility]2018-03-06 08:51:00 Test Item Value Reference Range Interpretation Comments Albumin Lvl (test code = Albumin Lvl) 3.0 3.5-5.0 [facility]2018-03-06 08:51:00 Test Item Value Reference Range Interpretation Comments B/C Ratio (test code = B/C Ratio) 34 1 6-25 [facility] [id number] 08:17:00 Test Item Value Reference Range Interpretation Comments MRSA by PCR (test Negative (01/03/18 2:17 code = MRSA by PCR) AM) [facility] - [id number] 08:17:00 Test Item Value Reference Range Interpretation Comments MRSA by PCR (test Negative (01/03/18 2:17 code = MRSA by PCR) AM) [facility]
[2023-09-06] MEDS ORDERED: FENTANYL CITR 100 MCG/2 ML ONE (15:38)
--- NOTE | 2023-09-06 16:09 | RAD REPORT ---
EXAM DESCRIPTION: RAD - Chest Single View - 09/06/2023 3:57 pm CLINICAL HISTORY: TRAUMA Chest pain. COMPARISON: Chest Single View dated 11/01/2017; Chest Pa And Lat (2 Views) dated 03/29/2017 FINDINGS: Portable technique limits examination quality. There is a large right pneumothorax present. No significant evidence of cardiomediastinal shift. Hear t size is mildly prominent.No displaced fracture seen. Findings were discussed with Dr. Ramirez in [facility] room 4:05 p.m. by telephone 09/06/2023.
--- NOTE | 2023-09-06 16:10 | RAD REPORT ---
EXAM DESCRIPTION: RAD - Forearm Left - 09/06/2023 3:57 pm CLINICAL HISTORY: DEFORMITY COMPARISON: No comparisons FINDINGS: Mildly comminuted fractures of the distal radius and ulna are noted with significant fract ure fragment displacement dorsally. A dislocation is not evident.
--- NOTE | 2023-09-06 16:11 | RAD REPORT ---
EXAM DESCRIPTION: RAD - Elbow Left 3 View - 09/06/2023 3:57 pm CLINICAL HISTORY: PAIN COMPARISON: No comparisons FINDINGS: Moderately displaced and mildly comminuted distal radius and ulna fractures are seen. Mode rate soft tissue swelling. The elbow joint appears intact. A dislocation is not evident.
--- NOTE | 2023-09-06 16:11 | RAD REPORT ---
EXAM DESCRIPTION: RAD - Wrist Left 3 View - 09/06/2023 3:57 pm CLINICAL HISTORY: DEFORMITY Pain COMPARISON: No comparisons FINDINGS: Mildly comminuted, moderately displaced fracture of the distal radius and ulna it is seen. Bones are moderately demineralized. No dislocation is evident.
[2023-09-06] MEDS ORDERED: propofoL 200 MG/20 ML VIAL IV ONE (16:18)
[2023-09-06] MEDS ORDERED: KETAMINE HCL IN 0.9 % NACL 50 MG/5 ML SYRINGE IV ONE ×2 (16:18→16:33)
[2023-09-06] MEDS ORDERED: NA CHLORIDE 0.9% 2,000 ML ONE (16:52)
[2023-09-06] MEDS ORDERED: CEFAZOLIN SODIUM 1 GM/VIAL ONE (17:06)
[2023-09-06] MEDS ORDERED: NA CHLORIDE 0.9% 100 ML ONE (17:07)
[2023-09-06] MEDS ORDERED: TDAP (DIPHTH,PERTUSS(ACELL),TET VAC) 0.5 ML VIAL IMVAC ONE (17:07)
[2023-09-06] MEDS ORDERED: NA CHLORIDE 0.9% 250 ML ONE (17:07)
--- NOTE | 2023-09-06 17:23 | RAD REPORT ---
EXAM DESCRIPTION: RAD - Chest Single View - 09/06/2023 5:16 pm CLINICAL HISTORY: POST CHEST TUBE Chest pain. COMPARISON: <Comparisons> FINDINGS: Portable technique limits examination quality. A large bore right-sided chest tube has been placed directed medially and cephalad. The previously no darrion pneumothorax has been decompressed. The heart is mildly enlarged in size with a tortuous thoracic aorta. No displaced fractures seen.
--- NOTE | 2023-09-06 17:23 | RAD REPORT ---
EXAM DESCRIPTION: RAD - Wrist Left 2 View - 09/06/2023 5:16 pm CLINICAL HISTORY: post reduction Pain COMPARISON: Wrist Left 3 View dated 09/06/2023 FINDINGS: The previously noted significantly displaced distal radius and ulna fractures have been re duced. Moderate surrounding soft tissue swelling.
--- NOTE | 2023-09-06 17:28 | EDPHYS ---
Physician Documentation [facility] Name: Sharon Navarrete Age: 62 yrs Sex: Female : 1960 Arrival Date: 09/06/2023 Time: 14:33 Bed 3 Private MD: ED Physician Dominic Hu HPI: 09/06 14:36 This 62 yrs old Female presents to ER via Unassigned with complaints of Fall ec2 Injury, Arm Pain. 14:36 Patient arrives today for evaluation after ground-level fall. States that she was ec2 walking subsequently tripped and fell and landed on her left outstretched arm. Patient reports no loss of consciousness, no head pain, no neck pain, not on blood thinners.. 14:53 Of note patient with history significant for smoking, has been smoking for 50+ years. ec2 Patient noted to be with borderline saturations in the upper 80s low 90s and placed on supplemental oxygen, patient does not feel short of breath has not been having cough and cold symptoms or sputum production.. Historical: - Allergies: 14:38 Darvocet-N 100; kc6 14:38 Darvon; kc6 - PMHx: 14:38 Chronic pain; consipation; frequent falls; muscular distrophy; muscular dystrophy; kc6 Rheumatoid Arthritis; Spinabifida; - Immunization history:: Adult Immunizations unknown. - Social history:: Smoking status: unknown. ROS: 14:36 Constitutional: as per hpi ec2 Exam: 14:36 Constitutional: GEN: No acute distress HEENT: -Head: atraumatic -Eyes: EOMI CV: ec2 regular rate LUNGS: no respiratory distress ABD: non-tender SKIN: no wounds appreciated MSK: No C/T/L spine deformities RUE w/o trauma LUE with obvious deformity to the distal forearm/wrist, intact distal neurovascular status. RLE w/o trauma LLE w/o trauma NEURO: moves all extremities equally, GCS 15 (E4, V5, M6) Vital Signs: 14:36 BP 106 / 77; Weight 45.36 kg (R); Height 4 ft. 9 in. (R); kc6 14:48 Pulse 93; Pulse Ox 91% on 4 lpm NC; kc6 15:18 BP 111 / 82; Pulse 106; Resp 26 S; Pulse Ox 88% on Venturi mask; kc6 16:18 BP 123 / 93; Pulse 85; Resp 20 S; Temp 98.7(O); Pulse Ox 90% on Venturi mask; kc6 16:25 BP 98 / 81; Pulse 100; Resp 22 S; Pulse Ox 90% on Venturi mask; kc6 17:44 BP 107 / 78; Pulse 100; Resp 19 S; Pulse Ox 93% on Non-rebreather mask; kc6 14:36 Body Mass Index 21.64 (45.36 kg, 144.78 cm) [facility] Procedures: 16:31 Reduction: of the left wrist, using traction, manipulation, Immobilized with OCL snw splint, procedure per Dr. Hu. Chest tube insertion: the site was prepped in sterile fashion, Tube size: a 20 nigerian chest tube was inserted, introduced in right to wall suction, dressed with vaseline gauze, procedure per Dr. Hu. 17:31 Splinting: using Orthoglass splint, applied by myself. tech. nurse. post reduction film ec2 - reveals improved alignment, Examined by me, post splint application: neurovascular intact, Patient tolerated well. Moderate sedation: Pre-procedure assessment: Monitoring during procedure: cardiac rehabilitation specialist, continuous pulse oximetry, nurse at bedside at all times, Medications employed: Ketamine, Propofol, Post-procedure assessment: the patient is not sedated, Respiratory status: even and unlabored. MDM: 14:36 Patient medically screened. ec2 14:36 Data reviewed: vital signs. ED course: Patient arrives today for evaluation after ec2 ground-level fall with an obvious wrist deformity. Examination remarkable for MSK findings as noted above. Will obtain radiographs of the elbow, forearm, wrist to evaluate for injury. Currently considering bone fracture, bone contusion, low suspicion for vascular injury given reassuring examination. We will give the patient IV fentanyl for pain control. Suspect the patient will require reduction.. 15:46 ED course: Forearm, wrist x-ray independently reviewed and interpreted by me, shows ec2 distal radius and ulna fracture with displacement noted. We will proceed with procedural sedation with ketamine and propofol and splinting.. 17:28 ED course: Right-sided chest tube placed by myself, no complication. Tolerated well ec2 with ketamine and propofol. Additional conscious sedation for risk reduction, appropriate and successful reduction with intact distal neurovascular status. Postprocedure chest x-ray independently reviewed and interpreted by me, shows decompression of the right-sided pneumothorax with superiorly placed chest tube. Left wrist status post reduction x-ray dependently reviewed and interpreted by me, shows interval reduction with improvement in alignment.. 17:33 ED course: In summary patient is a critically ill individual was found to have a ec2 right-sided pneumothorax which on further discussion patient had a fall several days ago which may have contributed to this that she sustained no chest trauma today. I placed a right-sided chest tube with appropriate position and decompression of the pneumothorax with improvement in saturations as well. Patient also with an open left wrist fracture with significant displacement that was reduced by myself with improved anatomic alignment and persistent intact neurovascular status. Patient to be transferred to [facility] for continued management of her traumatic findings. Patient, family updated regarding plan of care.. 09/06 15:59 Order name: CBC with Diff ec2 09/06 15:59 Order name: BMP ec2 09/06 14:36 Order name: Forearm Left XRAY; Complete Time: 16:29 ec2 09/06 14:36 Order name: Wrist Left (3 View) XRAY; Complete Time: 16:29 ec2 09/06 14:36 Order name: Elbow Left 3 View XRAY; Complete Time: 16:29 ec2 09/06 14:48 Order name: CXR XRAY; Complete Time: 16:29 ec2 09/06 17:04 Order name: CXR XRAY; Complete Time: 17:25 bd 09/06 17:10 Order name: Wrist Left (2 View) XRAY; Complete Time: 17:25 bd 09/06 14:36 Order name: IV; Complete Time: 15:00 ec2 Administered Medications: 15:22 Not Given (Other Intervention Used): fentanyl (pf)50 mcg IVP once [facility] 15:34 Drug: fentaNYL (PF) IVP 25 mcg IVP once Route: IVP; Site: right wrist; [facility] 16:00 Follow up: Response: No adverse reaction; Pain is decreased; RASS: Alert and Calm (0) [facility] 16:35 Drug: Propofol IVP 25 mg IVP once; Document RASS score. {Note: administered by Dr. barry Hu.} Route: IVP; Site: left upper arm; 16:40 Follow up: Response: No adverse reaction; RASS: Moderate sedation (-3) kc6 16:35 Drug: Ketamine IVP 25 mg IVP once Route: IVP; Site: left upper arm; kc6 16:40 Follow up: Response: No adverse reaction; Pain is decreased; RASS: Moderate sedation kc6 (-3) 16:35 Drug: NS 0.9% IV 1000 ml IV at 1 bolus Per protocol; 1000 mL bolus Route: IV; Rate: 1 kc6 bolus; Site: left upper arm; 18:30 Follow up: Response: No adverse reaction; IV Status: Completed infusion; IV Intake: kc6 1000ml 16:40 Drug: Ketamine IVP 25 mg IVP once Route: IVP; Site: left upper arm; kc6 16:50 Follow up: Response: No adverse reaction; Pain is decreased; RASS: Moderate sedation kc6 (-3) 16:43 Drug: Propofol IVP 25 mg IVP once; Document RASS score. {Note: administered by DR. barry Hu.} Route: IVP; Site: left upper arm; 16:50 Follow up: Response: No adverse reaction; RASS: Moderate sedation (-3) kc6 16:50 Drug: Propofol IVP 25 mg IVP once; Document RASS score. {Note: administered by Dr. barry Hu.} Route: IVP; Site: left upper arm; 17:00 Follow up: Response: No adverse reaction; RASS: Moderate sedation (-3) kc6 16:50 Drug: Ketamine IVP 25 mg IVP once Route: IVP; Site: left upper arm; kc6 17:00 Follow up: Response: No adverse reaction; Pain is decreased; RASS: Moderate sedation kc6 (-3) 17:00 Drug: Tetanus-Diphtheria Toxoid IM Adult 0.5 ml IM once; Provide Vaccine Information kc6 Statement (VIS). {Dobby Looms Pegger: [employer]; Exp: TueMar 23 2024; Lot #: [id number]; Series: 1 of 1; Patient Consent: Obtained; Date/Time: ; Source Name: Sharon Navarrete; Source Relationship: Self; Address Information: [place] [address]; ; Education: Provided; VIS Presented Date: ; VIS Publication: Tetanus/Diphtheria (Td) Vaccine VIS 02/08/2017 (historic); Vaccine Funding Eligibility: [facility] eligibility not determined/unknown} Route: IM; Site: left deltoid; 18:00 Follow up: Response: No adverse reaction kc6 17:04 Drug: Propofol IVP 25 mg IVP once; Document RASS score. {Note: admin by Dr. Hu.} kc6 Route: IVP; Site: left upper arm; 17:08 Follow up: Response: No adverse reaction; RASS: Moderate sedation (-3) kc6 17:04 Drug: Ketamine IVP 25 mg IVP once Route: IVP; Site: left upper arm; kc6 17:08 Follow up: Response: No adverse reaction; Pain is decreased; RASS: Moderate sedation kc6 (-3) 17:09 Drug: Propofol IVP 25 mg IVP once; Document RASS score. {Note: admin by Dr. Hu.} kc6 Route: IVP; Site: left upper arm; 17:15 Follow up: Response: No adverse reaction; RASS: Moderate sedation (-3) kc6 17:15 Drug: ceFAZolin IVPB 1 grams IVPB once Route: IVPB; Site: left upper arm; kc6 18:15 Follow up: Response: No adverse reaction; IV Status: Completed infusion; IV Intake: kc6 100ml 17:32 Drug: Ativan IVP 2 mg IVP once Route: IVP; Site: right wrist; kc6 18:30 Follow up: Response: No adverse reaction; Anxiety decreased; RASS: Drowsy (-1) kc6 17:33 CANCELLED (Physician Discretion): ketamine0.5 mg/kg IVP once kc6 17:33 CANCELLED (Physician Discretion): propofol0.5 mg/kg IVP once; Document RASS score. kc6 Disposition: 17:30 Co-signature as Attending Physician, Dominic Hu MD. ec2 Disposition Summary: 09/06/23 17:27 Transfer Ordered Notes: Transfer Location: [facility] ec2 Reason: Higher level of care ec2 Condition: Fair ec2 Problem: new ec2 Symptoms: have improved ec2 Accepting Physician: Dr. Garay(09/06/23 18:34) kc6 Diagnosis - Traumatic pneumothorax ec2 - Fracture of lower end of radius ec2 - Ulna Fracture ec2 Forms: - Medication Reconciliation Form ec2 - SBAR form ec2 Critical care time excluding procedures: 17:33 Critical care time: Bedside Care: 45 minutes, Consultation: 10 minutes. Total time: 55 ec2 minutes Signatures: Dispatcher [employer] Margarette Ramirez, AERONAUTICAL INSPECTOR-C AERONAUTICAL INSPECTOR-Csnw Daniel Ramirez MD MD sp3 Candy Childers, RN RN kc6 Dominic Hu MD MD ec2 Corrections: (The following items were deleted from the chart) 17:33 15:45 Ketamine IVP 0.5 mg/kg IVP once ordered. ec2 kc6 17:33 15:45 Propofol IVP 0.5 mg/kg IVP once; Document RASS score. ordered. ec2 kc6 17:33 17:33 Propofol IVP 0.5 mg/kg IVP once; Document RASS score. ordered. kc6 kc6 17:33 17:33 Ketamine IVP 0.5 mg/kg IVP once ordered. kc6 kc6 18:34 17:27 Dr. Garay ec2 kc6
--- NOTE | 2023-09-06 17:28 | ER ---
Nurse's Notes [facility] Name: Sharon Navarrete Age: 62 yrs Sex: Female : 1960 Arrival Date: 09/06/2023 Time: 14:33 Bed 3 Private MD: Diagnosis: Traumatic pneumothorax;Fracture of lower end of radius;Ulna Fracture Presentation: 09/06 14:36 Chief complaint: EMS states: pt was using her walker when she fell onto her left kc6 arm/wrist. obvious deformity noted upon EMS arrival. 50mcg of IM fentantyl given enroute. Coronavirus screen: At this time, the client does not indicate any symptoms associated with coronavirus-19. Ebola Screen: No symptoms or risks identified at this time. Initial Sepsis Screen: Does the patient meet any 2 criteria? No. Patient's initial sepsis screen is negative. Does the patient have a suspected source of infection? No. Patient's initial sepsis screen is negative. Risk Assessment: Do you want to hurt yourself or someone else? Patient reports no desire to harm self or others. Onset of symptoms was September 06, 2023. 14:36 Method Of Arrival: EMS [facility] 14:36 Acuity: PRANAY 2 kc6 Triage Assessment: 14:38 General: Appears in no apparent distress. comfortable, Behavior is calm, cooperative, kc6 appropriate for age. Pain: Complains of pain in left hand and left arm. EENT: No signs and/or symptoms were reported regarding the EENT system. Neuro: Level of Consciousness is awake, alert, obeys commands, Oriented to person, place, time, situation, Appropriate for age. Cardiovascular: Capillary refill < 3 seconds. Respiratory: Airway is patent Trachea midline Respiratory effort is even, unlabored, Respiratory pattern is regular, symmetrical. GI: No signs and/or symptoms were reported involving the gastrointestinal system. : No signs and/or symptoms were reported regarding the genitourinary system. Derm: Skin is pink, warm \T\ dry. Musculoskeletal: Circulation, motion, and sensation intact. Capillary refill < 3 seconds, Range of motion: limited in left wrist Bony deformity noted of left hand. 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: [employer]; Exp: TueMar 23 2024; Lot #: [id number]; Series: 1 of 1; Patient Consent: Obtained; Date/Time: ; Source Name: Sharon Navarrete; Source Relationship: Self; Address Information: [address] [place] [id number]; ; Education: Provided; VIS Presented Date: ; VIS Publication: Tetanus/Diphtheria (Td) Vaccine VIS 02/08/2017 (historic); Vaccine Funding Eligibility: C eligibility not determined/unknown 16:50 Propofol IVP 25 mg 6 16:50 Ketamine IVP 25 mg 6 16:43 Propofol IVP 25 mg 6 16:40 Ketamine IVP 25 mg 6 16:35 Propofol IVP 25 mg 6 16:35 Ketamine IVP 25 mg 6 16:35 NS 0.9% IV 1000 ml 6 15:34 fentaNYL (PF) IVP 25 mcg 6 - Immunization history:: Adult Immunizations unknown. - Social history:: Smoking status: unknown. Screenin:40 [facility] ED Fall Risk Assessment (Adult) History of falling in the last 3 months, 6 including since admission Yes- single mechanical fall (1 pt) Confusion or Disorientation No (0 pts) Intoxicated or Sedated No (0 pts) Impaired Gait Yes (1 pt) Mobility Assist Device Used Yes (1 pt) Altered Elimination No (0 pt) Score/Fall Risk Level 3 or more points = High Risk. Abuse screen: Denies threats or abuse. Denies injuries from another. Nutritional screening: No deficits noted. Tuberculosis screening: No symptoms or risk factors identified. Assessment: 14:41 Reassessment: please see triage assessment. [facility] 14:50 Reassessment: pt appears to be 79% on RA. pt placed on Venti mask by SONG Quinn. per 6 Dr. Hu hold IV fentanyl until pts SPO2 is greater than 88%. 15:41 Reassessment: Patient appears in no apparent distress at this time. No changes from [facility] previously documented assessment. Patient and/or family updated on plan of care and expected duration. Pain level reassessed. Patient is alert, oriented x 3, equal unlabored respirations, skin warm/dry/pink. 16:35 Reassessment: please see conscious sedation flow sheet for further vital signs. kc 16:41 Reassessment: Patient appears in no apparent distress at this time. No changes from [facility] previously documented assessment. Patient and/or family updated on plan of care and expected duration. Pain level reassessed. Patient is alert, oriented x 3, equal unlabored respirations, skin warm/dry/pink. 17:41 Reassessment: Patient appears in no apparent distress at this time. No changes from [facility] previously documented assessment. Patient and/or family updated on plan of care and expected duration. Pain level reassessed. Patient is alert, oriented x 3, equal unlabored respirations, skin warm/dry/pink. Vital Signs: 14:36 BP 106 / 77; Weight 45.36 kg (R); Height 4 ft. 9 in. (R); kc6 14:48 Pulse 93; Pulse Ox 91% on 4 lpm NC; kc6 15:18 BP 111 / 82; Pulse 106; Resp 26 S; Pulse Ox 88% on Venturi mask; kc6 16:18 BP 123 / 93; Pulse 85; Resp 20 S; Temp 98.7(O); Pulse Ox 90% on Venturi mask; kc6 16:25 BP 98 / 81; Pulse 100; Resp 22 S; Pulse Ox 90% on Venturi mask; kc6 17:44 BP 107 / 78; Pulse 100; Resp 19 S; Pulse Ox 93% on Non-rebreather mask; kc6 14:36 Body Mass Index 21.64 (45.36 kg, 144.78 cm) kc6 ED Course: 14:35 Patient arrived in ED. kc6 14:35 Dominic Hu MD is Attending Physician. ec2 14:38 Triage completed. kc6 14:38 Arm band placed on. kc6 14:41 Patient has correct armband on for positive identification. Placed in gown. Bed in low kc6 position. Call light in reach. Side rails up X2. Client placed on continuous cardiac and pulse oximetry monitoring. NIBP monitoring applied. 14:48 Candy Childers, RN is Primary Nurse. kc6 15:00 Inserted saline lock: 22 gauge in right wrist, using aseptic technique. Oxygen kc6 administration via Venturi mask. 15:59 Forearm Left XRAY In Process Unspecified. EDMS 15:59 Wrist Left (3 View) XRAY In Process Unspecified. EDMS 15:59 Elbow Left 3 View XRAY In Process Unspecified. EDMS 15:59 CXR XRAY In Process Unspecified. EDMS 16:00 Provided Education on: Conscious Sedation, Procedure Consent. kc6 16:22 initiated transfer to [facility]. bd 16:35 Inserted saline lock: 22 gauge in left upper arm, using aseptic technique. kc6 16:35 Assist provider with chest tube insertion with 20 Fr. in right lateral chest wall. Tray kc6 was set up. Attached to wall suction, Chest tube inserted by Dominic Hu MD Placement verified by CXR, return of air, Dressed with Vaseline gauze, foam tape, silk tape, 4X4s, Patient tolerated well. Assist provider with reduction of left wrist using traction, manipulation, Set up for procedure. Performed by Dominic Hu MD Immobilized with sugar tong Patient tolerated well. 16:46 pt accepted in transfer to [facility] ER by Dr Garay, admin approval given by Cindy Martin. 17:17 CXR XRAY In Process Unspecified. EDMS 17:18 Wrist Left (2 View) XRAY In Process Unspecified. EDMS 17:51 Notified ED physician of a critical lab result(s). BGL 441. ld1 17:56 Patient transferred, IV remains in place. kc6 Administered Medications: 15:22 Not Given (Other Intervention Used): fentanyl (pf)50 mcg IVP once kc6 15:34 Drug: fentaNYL (PF) IVP 25 mcg IVP once Route: IVP; Site: right wrist; kc6 16:00 Follow up: Response: No adverse reaction; Pain is decreased; RASS: Alert and Calm (0) kc6 16:35 Drug: Propofol IVP 25 mg IVP once; Document RASS score. {Note: administered by Dr. barry Hu.} Route: IVP; Site: left upper arm; 16:40 Follow up: Response: No adverse reaction; RASS: Moderate sedation (-3) kc6 16:35 Drug: Ketamine IVP 25 mg IVP once Route: IVP; Site: left upper arm; kc6 16:40 Follow up: Response: No adverse reaction; Pain is decreased; RASS: Moderate sedation kc6 (-3) 16:35 Drug: NS 0.9% IV 1000 ml IV at 1 bolus Per protocol; 1000 mL bolus Route: IV; Rate: 1 kc6 bolus; Site: left upper arm; 18:30 Follow up: Response: No adverse reaction; IV Status: Completed infusion; IV Intake: kc6 1000ml 16:40 Drug: Ketamine IVP 25 mg IVP once Route: IVP; Site: left upper arm; kc6 16:50 Follow up: Response: No adverse reaction; Pain is decreased; RASS: Moderate sedation kc6 (-3) 16:43 Drug: Propofol IVP 25 mg IVP once; Document RASS score. {Note: administered by DR. barry Hu.} Route: IVP; Site: left upper arm; 16:50 Follow up: Response: No adverse reaction; RASS: Moderate sedation (-3) kc6 16:50 Drug: Propofol IVP 25 mg IVP once; Document RASS score. {Note: administered by Dr. barry Hu.} Route: IVP; Site: left upper arm; 17:00 Follow up: Response: No adverse reaction; RASS: Moderate sedation (-3) kc6 16:50 Drug: Ketamine IVP 25 mg IVP once Route: IVP; Site: left upper arm; kc6 17:00 Follow up: Response: No adverse reaction; Pain is decreased; RASS: Moderate sedation kc6 (-3) 17:00 Drug: Tetanus-Diphtheria Toxoid IM Adult 0.5 ml IM once; Provide Vaccine Information 6 Statement (VIS). 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 {Note: admin by Dr. Hu.} kc6 Route: IVP; Site: left upper arm; 17:08 Follow up: Response: No adverse reaction; RASS: Moderate sedation (-3) kc6 17:04 Drug: Ketamine IVP 25 mg IVP once Route: IVP; Site: left upper arm; kc6 17:08 Follow up: Response: No adverse reaction; Pain is decreased; RASS: Moderate sedation kc6 (-3) 17:09 Drug: Propofol IVP 25 mg IVP once; Document RASS score. {Note: admin by Dr. Hu.} kc6 Route: IVP; Site: left upper arm; 17:15 Follow up: Response: No adverse reaction; RASS: Moderate sedation (-3) kc6 17:15 Drug: ceFAZolin IVPB 1 grams IVPB once Route: IVPB; Site: left upper arm; kc6 18:15 Follow up: Response: No adverse reaction; IV Status: Completed infusion; IV Intake: kc6 100ml 17:32 Drug: Ativan IVP 2 mg IVP once Route: IVP; Site: right wrist; kc6 18:30 Follow up: Response: No adverse reaction; Anxiety decreased; RASS: Drowsy (-1) kc6 17:33 CANCELLED (Physician Discretion): ketamine0.5 mg/kg IVP once kc6 17:33 CANCELLED (Physician Discretion): propofol0.5 mg/kg IVP once; Document RASS score. kc6 Medication: 17:56 VIS not applicable for this client. kc6 Intake: 18:15 IV: 100ml; Total: 100ml. kc6 18:30 IV: 1000ml; Total: 1100ml. kc6 Outcome: 17:27 ER care complete, transfer ordered by . ec2 17:55 Transferred by ground EMS to [facility], Transfer form completed. Note: kc6 report called to SONG Valverde. pt with EMS 17:55 Condition: stable 17:55 Instructed on the need for transfer, 18:34 Patient left the ED. kc6 Signatures: Dispatcher [employer] EDMarlin Delgado Lauren RN RN ld1 Candy Childers RN RN kc6 Dominic Hu MD MD ec2 Corrections: (The following items were deleted from the chart) 15:18 14:50 Reassessment: pt appears to be 79% on RA. pt placed on Venti mask by SONG Quinn kc6 kc6 19:33 16:04 BP 123 / 93; Pulse 85bpm; Resp 20bpm; Spontaneous; Pulse Ox 90% Venturi mask; kc6 kc6 19:33 16:18 Temp 98.7F Oral; kc6 kc6
[2023-09-06 17:37] LABS: Absolute Lymphocytes (CBC) 1.9 K/uL (0.7-4.9); Hematocrit 36.6 % (36.0-45.0); Lymphocytes % 14.3 % (15.3-44.8); MCV 70.5 fL (80-100); MPV 8.5 fL (7.6-11.3); Platelets 259 thou/uL (152-406)
[2023-09-06] MEDS ORDERED: LORazepam 2 MG/ML VIAL ONE (17:44)
[2023-09-06 17:49] LABS: Potassium 4.9 mEq/L (3.5-5.1)
[2023-09-06 18:43] VITALS: BP 107/78; O2SAT 93
[2023-09-06 19:59] LABS: Anisocytosis 2+; Blood Morphology Comment NOTED (NOT SEEN); Hypochromasia 1+; Platelet Estimate ADEQ; Polychromasia SLIGHT
--- NOTE | 2023-09-10 14:25 | EKG ---
Test Date: 2023-09-06 Test Time: 16:12:04 Press Writer: JANET MEASUREMENT RESULTS: Intervals: Rate: 102 OK: 168 QRSD: 96 QT: 390 QTc: 508 [place]: P: -81 OK: 168 QRS: 69 T: -2 INTERPRETIVE STATEMENTS: Unusual P axis, possible ectopic atrial tachycardia with occasional premature ventricular complexes Abnormal QRS-T angle, consider primary T wave abnormality Abnormal ECG Compared to ECG 11/01/2017 17:32:15 T-wave abnormality now present Sinus tachycardia no longer present Atrial premature complex(es) no longer present ST (T wave) deviation no longer present Possible ischemia no longer present Prolonged QT interval no longer present Electronically Signed On 09-10-23 14:14:22 PHYSICS PROFESSOR by Michael Guardado
== END 2023-09-06 18:34 | disposition short-term general hospital (02) ==
LOC: ER 14:33
PROC: 0PSJ35Z Reposition Left Radius with External Fixation Device, Percutaneous Approach (ICD-10-PCS; principal; 2023-09-06)
PROC: 0PSL35Z Reposition Left Ulna with External Fixation Device, Percutaneous Approach (ICD-10-PCS; 2023-09-06)
PROC: 0W9930Z Drainage of Right Pleural Cavity with Drainage Device, Percutaneous Approach (ICD-10-PCS; 2023-09-06)
DX: S27.0XXA Traumatic pneumothorax, initial encounter (principal); S52.502A Unspecified fracture of the lower end of left radius, initial encounter for closed fracture; S52.602A Unspecified fracture of lower end of left ulna, initial encounter for closed fracture; W01.0XXA Fall on same level from slipping, tripping and stumbling without subsequent striking against object, initial encounter; Z23 Encounter for immunization; Z91.81 History of falling; Z88.5 Allergy status to narcotic agent
CPT/HCPCS: 93005; 85025; 80048; 36415; 71045 ×2; 73080; 73090; 73110; 73100; 90471; 99291; 25605; 32554; J2704; J3010; J7050; J7030; J0690

== ENCOUNTER 2024-10-02 09:22 | Emergency (ER) | payer OTHER ==
[2024-10-02] MEDS ORDERED: ACETAMINOPHEN 500 MG TAB ONE (09:48)
[2024-10-02 10:12] LABS: Absolute Eosinophils 0.1 K/uL (0-0.5); Absolute Monocytes 0.5 K/uL (0.1-1.3); Absolute Neutrophil 2.7 K/uL (1.8-8.0); Eosinophils % 1.6 % (0-4.4); Hematocrit 39.7 % (36.0-45.0); Hemoglobin 13.1 g/dL (12.0-15.0); Lymphocytes % 22.6 % (15.3-44.8); MCH 30.6 pg (27.0-35.0); MCHC 32.9 g/dL (32.0-36.0); MCV 93.1 fL (80-100); MPV 8.2 fL (7.6-11.3); Monocytes % 12.7 % (3.3-12.3); Neutrophils % 62.1 % (41.7-73.7); Nucleated Red Blood Cells % 0.1 % (0-0); Platelets 243 thou/uL (152-406); RBC Red Blood Cell Count 4.27 M/uL (3.86-4.86); Red Cell Distribution Width 15.3 % (12.1-15.2)
[2024-10-02 10:30] LABS: Anion Gap 10.3 mEq/L (5.0-15.0); Potassium 4.3 mEq/L (3.5-5.1)
[2024-10-02 10:36] LABS: SARS-CoV-2 Antigen CONTROL BLUE LINE VIS/BG OK; SARS-CoV-2 Antigen Rapid Res Negative (Negative)
[2024-10-02 11:01] LABS: Specific Gravity 1.026 (1.005-1.030); Sqamous Epithelial None Seen /HPF (None Seen); Urine Bacteria None Seen /HPF (<20); Urine Bilirubin NEGATIVE (Negative); Urine Blood Negative (Negative); Urine Clarity Clear (Clear); Urine Color Light-Yellow (Yellow); Urine Culture Reflex Order NOT NEEDED; Urine Glucose 4+ (Over) (Negative); Urine Ketones NEGATIVE (Negative); Urine Micro Reflex YN NO BILL MICROSCOPIC; Urine Nitrite NEGATIVE (Negative); Urine Protein NEGATIVE (Negative); Urine RBC None Seen /HPF (None Seen); Urine Urobilinogen 1+ (Normal); Urine WBC <5 /HPF (<5); Urine pH 7.5 (5.0-7.0)
--- NOTE | 2024-10-02 12:00 | ER ---
Nurse's Notes [facility] Name: Sharon Navarrete Age: 63 yrs Sex: Female : 1960 Arrival Date: 10/02/2024 Time: 09:22 Bed 4 Private MD: Diagnosis: Transient Altered Mental Status;Whole Body Pain Presentation: 10/02 09:32 Chief complaint: EMS states: GENERALIZED [place]. Coronavirus screen: At this time, the bp client does not indicate any symptoms associated with coronavirus-19. Ebola Screen: No symptoms or risks identified at this time. Initial Sepsis Screen: Does the patient meet any 2 criteria? No. Patient's initial sepsis screen is negative. Does the patient have a suspected source of infection? No. Patient's initial sepsis screen is negative. Risk Assessment: Do you want to hurt yourself or someone else? Patient reports no desire to harm self or others. Onset of symptoms is unknown. Care prior to arrival: Glucose check: 100. 09:32 Method Of Arrival: EMS: [facility] bp 09:32 Acuity: PRANAY 4 bp Triage Assessment: 09:33 General: Appears in no apparent distress. Behavior is cooperative, appropriate for age, bp anxious. Pain: Complains of pain in GENERALIZED. EENT: No deficits noted. Neuro: No deficits noted. Cardiovascular: No deficits noted. Respiratory: No deficits noted. GI: No signs and/or symptoms were reported involving the gastrointestinal system. : No signs and/or symptoms were reported regarding the genitourinary system. Derm: No deficits noted. Musculoskeletal: No deficits noted. Historical: - Allergies: 09:33 Darvocet-N 100; bp 09:33 Darvon; bp - PMHx: 09:33 Chronic pain; consipation; frequent falls; muscular dystrophy; Rheumatoid Arthritis; bp Spinabifida; - Immunization history:: Adult Immunizations up to date. - Infectious Disease History:: Denies. - Social history:: Smoking status: Patient denies any tobacco usage or history of. Screenin:35 [facility] ED Fall Risk Assessment (Adult) History of falling in the last 3 months, bp including since admission No falls in past 3 months (0 pts) Confusion or Disorientation No (0 pts) Intoxicated or Sedated No (0 pts) Impaired Gait Yes (1 pt) Mobility Assist Device Used Yes (1 pt) Altered Elimination No (0 pt) Score/Fall Risk Level 0 - 2 = Low Risk. Abuse screen: Denies threats or abuse. Denies injuries from another. Nutritional screening: No deficits noted. Tuberculosis screening: No symptoms or risk factors identified. Assessment: 09:33 General: Appears in no apparent distress. Behavior is cooperative, appropriate for age. bp 12:07 Reassessment: [facility] CONTACTED FOR TRANSPORT. bp Vital Signs: 09:32 BP 109 / 62; Pulse 89; Resp 16; Temp 98; Pulse Ox 99.1% ; bp 11:48 BP 153 / 94; Pulse 87; Resp 17; Pulse Ox 97% on R/A; ap3 12:43 BP 147 / 85; Pulse 81; Resp 16; Pulse Ox 98% ; bp ED Course: 09:28 Patient arrived in ED. bd 09:32 Dylan Damon, SONG is Primary Nurse. bp 09:32 Dominic Hu MD is Attending Physician. ec2 09:33 Triage completed. bp 09:33 Arm band placed on. bp 09:35 Patient has correct armband on for positive identification. bp 09:56 Initial lab(s) drawn, by me, sent to lab. COVID swab sent to lab. Flu and/or RSV swab bp sent to lab. Inserted saline lock: 22 gauge in left forearm, using aseptic technique. Blood collected. Flushed with 10 mL NS. 10:27 Radiology exam delayed due to patient refusing until she gets pain meds. rs4 10:53 UAM Sent. bc6 12:42 No provider procedures requiring assistance completed. IV discontinued, intact, bp bleeding controlled, No redness/swelling at site. Pressure dressing applied. 12:43 Provided Education on: N/A. bp Administered Medications: 09:55 Drug: Acetaminophen PO 1000 mg PO once Route: PO; bp 12:08 Follow up: Response: No adverse reaction bp Medication: 12:43 VIS not applicable for this client. bp Outcome: 11:59 Discharge ordered by . ec2 12:42 Discharged to pen[facility]iary. Report called to [facility] Transfer form completed. bp 12:42 Condition: stable 12:42 Discharge instructions given to patient, penitentiary, Instructed on discharge instructions, follow up and referral plans. Demonstrated understanding of instructions, follow-up care, 12:44 Patient left the ED. bp Signatures: Marlin Francis Brian RN RN bp Corinna Pruitt RN RN ap3 Allison Lackey rs4 Layla Zamora 6 Dominic Hu MD MD ec2
--- NOTE | 2024-10-02 12:00 | EDPHYS ---
Physician Documentation [facility] Name: Sharon Navarrete Age: 63 yrs Sex: Female : 1960 Arrival Date: 10/02/2024 Time: 09:22 Bed 4 Private MD: ED Physician Dominic Hu HPI: 10/02 10:06 This 63 yrs old Female presents to ER via EMS with complaints of Altered ec2 Mental Status. 10:06 Patient arrives today for evaluation of reported altered mental status. Patient with ec2 nonspecific complaints, reportedly was altered however patient has no complaints and seems to be appropriate. EMS reports that she had a borderline temperature otherwise nothing significant found on their examination.. Historical: - Allergies: 09:33 Darvocet-N 100; bp 09:33 Darvon; bp - PMHx: 09:33 Chronic pain; consipation; frequent falls; muscular dystrophy; Rheumatoid Arthritis; bp Spinabifida; - Immunization history:: Adult Immunizations up to date. - Infectious Disease History:: Denies. - Social history:: Smoking status: Patient denies any tobacco usage or history of. ROS: 10:07 Constitutional: as per hpi ec2 Exam: 10:07 Constitutional: GEN: NAD Head: atraumatic Eyes: EOMI Ears: External ears are ec2 normal. CV: regular rate LUNGS: no respiratory distress ABD: non-distended, soft, nontender, not guarding, not rigid SKIN: no evidence of rashes MSK: no evidence of trauma. Neuro: Moves all extremities equally. Vital Signs: 09:32 BP 109 / 62; Pulse 89; Resp 16; Temp 98; Pulse Ox 99.1% ; bp 11:48 BP 153 / 94; Pulse 87; Resp 17; Pulse Ox 97% on R/A; ap3 12:43 BP 147 / 85; Pulse 81; Resp 16; Pulse Ox 98% ; bp MDM: 09:32 Medical Screening Exam initiated ec2 10:08 Data reviewed: vital signs, nurses notes. ED course: Patient arrives today for reported ec2 altered mental status. Examination is unrevealing. Will obtain lab work, urine studies, viral swabs. Evaluating for processes such as anemia, electrolyte disturbances, urinary tract infection.. 11:59 ED course: Lab work unrevealing. On reassessment patient is well-appearing no acute ec2 distress. Patient with complaints of chronic pain, states that she needs [place], instructed her she needs to follow-up with her primary care doctor for her chronic pain.. 10/02 09:33 Order name: CBC with Diff; Complete Time: 10:49 ec2 10/02 09:33 Order name: BMP; Complete Time: 10:49 ec2 10/02 09:33 Order name: UAM; Complete Time: 11:31 ec2 10/02 09:33 Order name: Influenza Screen (a \T\ B); Complete Time: 10:49 ec2 10/02 09:33 Order name: SARS RAPID; Complete Time: 10:49 ec2 10/02 09:33 Order name: Cath; Complete Time: 10:53 ec2 10/02 09:33 Order name: IV; Complete Time: 09:56 ec2 Administered Medications: 09:55 Drug: Acetaminophen PO 1000 mg PO once Route: PO; bp 12:08 Follow up: Response: No adverse reaction bp Disposition Summary: 10/02/24 11:59 Discharge Ordered Notes: Location: Home ec2 Condition: Stable ec2 Diagnosis - Transient Altered Mental Status ec2 - Whole Body Pain ec2 Followup: ec2 - With: Private Physician - When: - Reason: Re-evaluation by your physician Discharge Instructions: - Discharge Summary Sheet ec2 - Chronic Pain, Adult ec2 Forms: - Medication Reconciliation Form ec2 - Antibiotic Education ec2 - Prescription Opioid Use ec2 - Patient Portal Instructions ec2 - Leadership Thank You Letter ec2 Signatures: Dispatcher [employer] Dylan Sarabia, SONG RN bp Dominic Hu MD MD ec2 Corrections: (The following items were deleted from the chart) 12: 09:34 Chest Single View+[email or web address] ordered. BILLY CERVANTES
[2024-10-02 13:10] VITALS: TEMP 98
[2024-10-02 13:25] VITALS: BP 147/85; O2SAT 98
== END 2024-10-02 12:44 | disposition home or self-care (01) ==
LOC: ER 09:22
DX: R41.82 Altered mental status, unspecified (principal); G89.29 Other chronic pain; Z11.52 Encounter for screening for COVID-19
CPT/HCPCS: 36415; 80048; 81001; 85025; 87804; 87811; 99284

== ENCOUNTER 2025-07-28 14:17 | Emergency (ER) | payer OTHER ==
--- OUTSIDE RECORDS SUMMARY | 2025-07-28 14:39 | XMS REPORT | Continuity of Care Document ---
Author Name Unknown Address [address] [facility] [place] [address] [facility] [place] Address [address] [facility] [place] [address] Care Team Providers Care Dairy Nutrition Consultant Name Role Phone PCP, PATIENT DOES NOT HAVE A Primary Care Physic cayla Unavailable STEVIE DOSHI Attending Clinician Unavailable Jonny WILSON, Tila De La Fuente Attending Clinician [phone] Neva Barry Attending Clinician [phone] Stevie Doshi MD Attending Clinician [phone] CRISTOPHER RAYMUNDO Attending Clinician Unavailable CRISTOPHER RAYMUNDO Attending Clinician Unavailable Cristopher Raymundo MD Attending Clinician [phone] KARL HICKS Attending Clinician Unavailable PEMA BRANHAM Attending Clinician Unavailable PEMA BRANHAM Attending Clinician Unavailable Jenae WILSON, Benny Hooper Attending Clinician Unavail able AI CORDERO Attending Clinician Unavailable Desmond Garay DO Attending Clinician [phone] Juany Pérez MD Attending Clinician [phone] Barbara ROOT, Gonsalo Harris Attending Clinician + [phone] Donny Lopez DO Attending Clinician +[phone] Ai Cordero MD Attending Clinician [phone] Francisco Willis MD Attending Clinician + [place] [facility], Shania Danielson Attending Clinician Unaleydi Jama MD, Afaq Attending Clinician +[phone] JOIE LAUREANO Attending Clinician Unavailable Joie Laureano MD Attending Clinician [phone] Doctor Unassigned, [place] Attending Clinician U chey Ferraro MD, Enid Loomis Attending Clinician + [phone] Katie ROOT, Osmany Edmond Attending Clinician +[phone] Misti ROOT, Félix Camarillo Attending Clinician [phone] FÉLIX MCPHERSON Attending Clinician Unavail able JAMIN EDDY Attending Clinician Unavailable Cintia, Generic Provider Attending Clinician Unavailable AGATHA GONZALEZ Attending Clinician Unavailable Katie ROOT, Crescencio Kramer Attending Clinician + [phone] Agatha Gonzalez DO Attending Clinician +[phone] Attending Clinician Unavailable Debbi Rodríguez Attending Clinician +[phone] KACIE KEENAN Attending Clinician Un available Enriqueta Paulino MD, Marcia Jean Atten ding Clinician Leonardo ROOT, Ana Loera Attending Clinician + [phone] Eric Myers MD Attending Clinician [phone] Ivanna Marte MD Attending Clinician [phone] Hermes Cadena MD Attending Clinician + [phone] Patricio Zuleta MD Attending Clinician +[phone] PATRICIO ZULETA Attending Clinician Unavailable Virtual, Surgeon Attending Clinician Unavailable Nunu Melo MD Attending Clinician [phone] Marisel Bolivar DO Attending Clinician +[phone] Sage Lopez MD Attending Clinician +[phone] MARISEL BOLIVAR Attending Clinician Unavailab le AL TAII, CRISTOPHER Admitting Clinician Unavailable FRANCISCO WILLIS Admitting Clinician Enid Gonzalez MD Admitting Clinician + [phone] ENID FERRARO Admitting Clinician UnavailCRESCENCIO Krueger Admitting Clinician Unavailab Crescencio Powers MD Admitting Clinician +[phone] KACIE KEENAN Admitting Clinician Un available VICKI CORONA Admitting Clinician Un available Sage Lopez MD Admitting Clinician [phone] Payers Payer Name Policy Type Policy Number Effective Date Expirati on Date Source [facility] STAR PLUS [id number] 2023 00:00:00 2023 00:00:[address] [facility] MEDICAID STARPLUS OON EXC [facility] [id number] 2016 00:00:00 Problems Condition Name Condition Details Condition Category Status Onset Date Resolution Date Last Treatment Date Treating Clinician Comments Source Chronic HFrEF (heart failure with reduced ejection fraction) Chronic HFrEF (heart failure with reduced ejection fraction) Disease Active 05-31 00:00: 00 [facility] NICM (nonischem ic cardiomyop athy) NICM (nonischem ic cardiomyop athy) Disease Active 05-31 00:00: 00 [facility] Paroxysmal atrial fibrillati on Paroxysmal atrial fibrillati on Disease Active 05-31 00:00: 00 [facility] E44.0 Moderate protein calorie malnutriti on E44.0 Moderate protein calorie malnutriti on Disease Active 03-30 00:00: 00 [facility] Multifocal atrial tachycardi a Multifocal atrial tachycardi a Disease Active 03-22 00:00: 00 [facility] Troponin I above reference range Troponin I above reference range Disease Active 03-22 00:00: 00 [facility] Chronic diastolic congestive heart failure Chronic diastolic congestive heart failure Disease Active 03-22 00:00: 00 [facility] Hypokalemi a Hypokalemi a Disease Active 2024-0 5-23 00:00: 00 [facility] Cigarette smoker Cigarette smoker Disease Active 523 00:00: 00 [facility] NSVT (nonsustai stephon ventricula r tachycardi a) NSVT (nonsustai stephon ventricula r tachycardi a) Disease Active 23 00:00: 00 [facility] New onset a-fib New onset a-fib Disease Active 03-21 00:00: 00 [facility] Acute hypoxic respirator y failure Acute hypoxic respirator y failure Disease Active 2-29 00:00: 00 [facility] Pneumothor ax Pneumothor ax Disease Active 1- 00:00: 00 [facility] LEFT WRIST FRACTURE LEFT WRIST FRACTURE Active 09/06/2023 [facility] Diagnosis Active 2022-10 00:00: 00 2023-09-06 22:04:00 [facility] FRACTURE RADIAL SHAFT LEFT FRACTURE RADIAL SHAFT LEFT Active 09/06/2023 [facility] Diagnosis Active 2022-10 00:00: 00 2023-09-20 21:51:00 Jo[facility]ph Curran Osteoporos is Osteoporos is Disease Recurre nee 03-27 00:00: 00 [facility] Osteoarthr itis Osteoarthr itis Disease Recurre nce 03-27 00:00: 00 [facility] Intracereb ral bleed due to trauma Intracereb ral bleed due to trauma Disease Active 03-25 00:00: 00 [facility] ICH (intracere bral hemorrhage ) ICH (intracere bral hemorrhage ) Disease Active 03-25 00:00: 00 [facility] UTI (urinary tract infection) UTI (urinary tract infection) Disease Active 6-02 00:00: 00 [facility] Chronic viral hepatitis C Chronic viral hepatitis C Disease Recurre nce 0 8-19 00:00: 00 Overview: Formattin g of this note might be different from the original. Formattin g of this note might be different from the original. Chronic Hep C - untreated Pt refuses treatment and referral [facility] Essential hypertensi on Essential hypertensi on Disease [facility] 06-18 00:00: 00 Overview: Formattin g of this note might be different from the original. Formattin g of this note might be different from the original. 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 [facility] 06-18 00:00: 00 [facility] Hyperlipid emia Hyperlipid emia Disease [facility] 06-18 00:00: 00 [facility] NON-STEMI, HYPOKALEMI , DEHYDRATIO N NON-STEMI, HYPOKALEMI , DEHYDRATIO N Active 01/02/2018 [facility] Diagnosis Active 3-05 00:00: 00 2018-01-09 21:49:00 Jo[facility] Curran Acidosis Acidosis 04/13/2018 [facility] Problem 2018-04-13 13:54:16 Joesph Curran Abnormal levels of other serum enzymes Abnormal levels of other serum enzymes 04/13/2018 [facility] 2018-04-13 13:54:16 Joesph Curran Scoliosis, unspecifie d Scoliosis, unspecifie d 04/13/2018 [facility] 2018-04-13 13:54:16 Joesph Curran Other disorders of phosphorus metabolism Other disorders of phosphorus metabolism 04/13/2018 [facility] 2018-04-13 13:54:16 Joesph Curran Other disorders of electrolyt e and fluid balance, not elsewhere classified Other disorders of electrolyt e and fluid balance, not elsewhere classified 04/13/2018 [facility] Problem 2018-04-13 13:54:16 Joesph Curran Emphysema, unspecifie d Emphysema, unspecifie d 04/13/2018 [facility] 2018-04-13 13:54:16 Joesph Curran Spina bifida, unspecifie d Spina bifida, unspecifie d 04/13/2018 [facility] 2018-04-13 13:54:16 Joesph Curran Unspecifie d fall, initial encounter Unspecifie d fall, initial encounter 04/13/2018 [facility] 2018-04-13 13:54:16 Joesph Curran Elevated white blood cell count, unspecifie d Elevated white blood cell count, unspecifie d 04/13/2018 [facility] 2018-04-13 13:54:16 Joesph Curran Adverse effect of carbonic-a nhydrase inhibitors , benzothiad iazides and other diuretics, initial encounter Adverse effect of carbonic-a nhydrase inhibitors , benzothiad iazides and other diuretics, initial encounter 04/13/2018 [facility] 2018-04-13 13:54:16 Joesph Curran Nicotine dependence , cigarettes , uncomplica darrion Nicotine dependence , cigarettes , uncomplica darrion 04/13/2018 [facility] 2018-04-13 13:54:16 Joesph Curran Headache Headache 04/13/2018 [facility] 2018-04-13 13:54:16 Joesph Curran Vitamin D deficiency , unspecifie d Vitamin D deficiency , unspecifie d 04/13/2018 [facility] 2018-04-13 13:54:16 Joesph Curran Age-relate d physical debility Age-relate d physical debility 04/13/2018 [facility] 2018-04-13 13:54:16 Joesph Curran Unspecifie d asthma, uncomplica darrion Unspecifie d asthma, uncomplica darrion 04/13/2018 [facility] 2018-04-13 13:54:16 Joesph Curran Constipati on, unspecifie d Constipati on, unspecifie d 04/13/2018 [facility] 2018-04-13 13:54:16 Joesph Curran Chronic kidney disease, stage 2 (mild) Chronic kidney disease, stage 2 (mild) 04/13/2018 [facility] 2018-04-13 13:54:16 Joesph Curran Tobacco abuse counseling Tobacco abuse counseling 04/13/2018 [facility] 2018-04-13 13:54:16 Joesph Curran 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) Resolved Problem 04/13/2018 [facility] Problem Resolve d 2018-04-13 13:54:16 Memwillian Curran Hypertensi ve disorder, systemic arterial (disorder) Hypertensi ve disorder, systemic arterial (disorder) Resolved Problem 04/13/2018 [facility] Problem Resolve d 2018-04-13 13:54:16 Joesph Curran Scoliosis deformity of spine (disorder) Scoliosis deformity of spine (disorder) Active Problem 04/13/2018 [facility] Problem Active 2018-04-13 13:54:16 Memwillian Curran NON-ST ELEVATION (NSTEMI) MYOCARDIAL INF NON-ST ELEVATION (NSTEMI) MYOCARDIAL INF Active [facility] Diagnosis Active 2018-01-09 21:49:00 Joesph Curran HYPOKALEMI A HYPOKALEMI A Active [facility] Diagnosis Active 2018-01-09 21:49:00 Joesph Curran Dehydratio n Dehydratio n 04/13/2018 [facility] 2018-04-13 13:54:16 Joesph Curran 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 04/13/2018 [facility] 2018-04-13 13:54:16 Joesph Curran Acute kidney failure, unspecifie d Acute kidney failure, unspecifie d 04/13/2018 [facility] 2018-04-13 13:54:16 Joesph Curran Unspecifie d diastolic (congestiv e) heart failure Unspecifie d diastolic (congestiv e) heart failure 04/13/2018 [facility] 2018-04-13 13:54:16 Joesph Curran Hypertensi ve heart and chronic kidney disease with heart failure and stage 1 through stage 4 chronic kidney disease, or unspecifie d chronic kidney disease Hypertensi ve heart and chronic kidney disease with heart failure and stage 1 through stage 4 chronic kidney disease, or unspecifie d chronic kidney disease 04/13/2018 [facility] 2018-04-13 13:54:16 Joesph Curran Hypo-osmol ality and hyponatrem ia Hypo-osmol ality and hyponatrem ia 04/13/2018 [facility] 2018-04-13 13:54:16 Joesph Curran History of Past Illness Condition Name Condition Details Condition Category Status Onset Date Resolution Date Last Treatment Date Treating Clinician Comments Source Spina bifida (disorder) Spina bifida (disorder) 09/11/2023 Diagnosis 09/17/2023 [facility] Diagnosis 2022-10 16:32: 00 2023-09-17 04:51:42 2023-09-17 04:51:42 Joesph Curran Hypokalemi a Hypokalemi a 01/12/2018 04/13/2018 [facility] Problem 2017- 3-15 03:20: 45 2018-04-13 13:54:16 2018-04-13 13:54:16 Joesph Curran Allergies, Adverse Reactions, Alerts Allergy Name Allergy Type Status Severity Reaction(s) Onset Date Inactive Date Treating Clinician Comments Source Other Allergy to substanc e Active 2022-10 00:00: 00 [facility] PROPOXYP HENE N-ACETAM INOPHEN Allergy Active 03-25 00:00: 00 [facility] Propoxyp hene N-Acetam inophen Propensi ty to adverse reaction s Active 03-25 00:00: 00 [facility] PROPOXYP HENE N-ACETAM INOPHEN DRUG Active Low N/V 04-01 00:00: 00 [facility] PROPOXYP HENE DRUG INGREDI Active Low N/V 04-01 00:00: 00 [facility] Propoxyp hene N-Acetam inophen Propensi ty to adverse reaction s Active Nausea and/or Vomiting 04-01 00:00: 00 [facility] Propoxyp hene Propensi ty to adverse reaction s Active Nausea and/or Vomiting 04-01 00:00: 00 [facility] Darvon-N Darvon-N Active Memoria susie Curran Darvocet -N 100 Darvocet -N 100 Active Memoria susie Currna NO KNOWN ALLERGIE S Drug Class Active [facility] NO KNOWN ALLERGIE S Allergy Active [facility] Family History Family Member Diagnosis Comments Start Date Stop Date Sourc e Natural father Coronary Heart Disease [facility] Natural father [facility] Natural mother [facility] Natural mother [facility] Social History Social Habit Start Date Stop Date Quantity Comments Source History of tobacco use Passive smoker [facility] Exposure to SARS-CoV-2 (event) Not sure [facility] ASSERTION Possible [facility] Sexual orientation C [facility] Sex 2025-06-11 01:05:54 2025-06-11 01:05:54 Female (finding) [facility] Alcoholic beverage intake 2024-05-31 00:00:00 2024-05-31 00:00:00 Current drinker of alcohol (finding) [facility] History of Social function 2024-04-25 00:00:00 2024-04-25 00:00:00 [facility] Cigarettes smoked current (pack per day) - Reported 2024-03-21 00:00:00 2024-03-21 00:00:00 [facility] Cigarette pack-years 2024-03-21 00:00:00 2024-03-21 00:00:00 [facility] Tobacco use and exposure 2024-03-21 00:00:00 2024-03-21 00:00:00 Smokeless tobacco non-user [facility] Alcohol intake 2024-01-18 00:00:00 2024-01-18 00:00:00 Current drinker of alcohol (finding) [facility] Alcohol Comment 2021-04-01 00:00:00 2021-04-01 00:00:00 socially [facility] Social History 2018-01-03 07:24:02 2018-01-03 07:24:02 [facility] Sex assigned at 1960 00:00:00 1960 00:00:00 [facility] Smoking Status Start Date Stop Date Source Tobacco smoking consumption unknown [facility] Ex-smoker 2024-03-21 00:00:00 2024-03-21 00:00:00 [facility] Smokes tobacco daily 2023-11-25 00:00:00 [facility] Medications Ordered Medication Name Filled Medication Name Start Date Stop Date Current Medication? Ordering Clinician Indication Dosage Frequency Signature (SIG) Comments Components Source perflutren protein-A microsphr (OPTISON) injection 3 mL 05-21 19:00: 00 05-21 20:50 :00 No [id number] 3mL 3 mL, IV Push, ONCE, 1 dose, On Tue05/21/25 at 1400, Routine [facility] HYDROcodone -acetaminop hen 10-325 mg tablet 04-25 09:50: 50 Yes 1{tbl} Take 1 tablet by mouth every 8 hours as needed. [facility] metoprolol succinate 25 mg CSpX 04-25 09:50: 50 Yes 25mg Take 25 mg by mouth 3 (three) times daily. [facility] furosemide 20 mg tablet 04-25 09:50: 50 Yes 20mg Take 1 tablet by mouth in the morning. [facility] gabapentin 300 mg capsule 04-25 09:50: 50 Yes 400mg Take 400 mg by mouth in the morning and 400 mg at noon and 400 mg in the evening. [facility] ergocalcife rol, vitamin d2, (VITAMIN D2) 1,250 mcg (50,000 unit) capsule 04-25 09:50: 50 Yes [id number] Take 1 capsule by mouth weekly. [facility] diphenhydrA MINE 25 mg tablet 04-25 09:50: 50 Yes 25mg Take 1 tablet by mouth. [facility] butalbital- aspirin-caf feine (FIORINAL) 50-325-40 mg per capsule 04-25 09:49: 32 04-25 00:00 :00 No 1{capsu le} Take 1 capsule by mouth every 4 (four) hours as needed for Pain. [facility] aspirin 81 mg EC tablet 04-07 00:00: 00 Yes 81mg Take 1 tablet by mouth in the morning. [facility] cholecalcif denia, vitamin D3, 25 mcg (1,000 unit) tablet 04-07 00:00: 00 Yes 2000U Take 2 tablets by mouth in the morning. [facility] spironolact one 25 mg tablet 04-07 00:00: 00 Yes 25mg Take 1 tablet by mouth in the morning. [facility] digoxin 125 mcg tablet 04-07 00:00: 00 Yes .125mg Take 1 tablet by mouth in the morning. [facility] empaglifloz in 10 mg tablet 04-07 00:00: 00 Yes 10mg Take 1 tablet by mouth in the morning. [facility] HYDROcodone -acetaminop hen 10-325 mg tablet 04-06 18:46: 12 Yes 1{tbl} Take 1 tablet by mouth every 8 (eight) hours as needed. [facility] butalbital- aspirin-caf feine (FIORINAL) 50-325-40 mg per capsule 04-06 18:46: 12 Yes 1{capsu le} Take 1 capsule by mouth every 4 (four) hours as needed for Pain. [facility] metoprolol succinate 25 mg CSpX 04-06 18:46: 12 Yes 25mg Take 25 mg by mouth 3 (three) times daily. [facility] furosemide 20 mg tablet 04-06 18:46: 12 Yes 20mg Take 1 tablet by mouth in the morning. [facility] gabapentin 300 mg capsule 04-06 18:46: 12 Yes 400mg Take 400 mg by mouth in the morning and 400 mg at noon and 400 mg in the evening. [facility] ergocalcife rol, vitamin d2, (VITAMIN D2) 1,250 mcg (50,000 unit) capsule 04-06 18:46: 12 Yes [id number] Take 1 capsule by mouth weekly. [facility] magnesium sulfate in water 2 gram/50 mL (4 %) infusion 2 g 04-06 13:15: 00 04-06 16:45 :00 No 2g 2 g, IV Piggyback, Administer over 60 Minutes, ONCE, 1 dose, On Tue04/06/24 at 0815, Routine [facility] atorvastati n 40 mg tablet 04-06 00:00: 00 Yes 40mg Take 1 tablet by mouth at bedtime. [facility] calcium carbonate 500 mg calcium (1,250 mg) tablet 04-06 00:00: 00 Yes 500mg Take 1 tablet by mouth in the morning and 1 tablet in the evening. Take with meals. [facility] ramelteon 8 mg tablet 04-06 00:00: 00 Yes 8mg Take 1 tablet by mouth at bedtime. [facility] metoprolol 10 mg/mL 04-06 00:00: 00 Yes 100mg Take 10 mL by mouth in the morning and 10 mL in the evening. [facility] ipratropium -albuteroL 0.5 mg-3 mg(2.5 mg base)/3 mL nebulizer solution 04-06 00:00: 00 Yes 3mL Inhale 3 mL 4 (four) times daily as needed for Wheezing. [facility] KCL 20 mEq tablet 04-06 00:00: 00 Yes 20meq Take 1 tablet by mouth in the morning. [facility] digoxin (LANOXIN) tablet 125 mcg 04-05 14:00: 00 Yes 125ug 125 mcg, Oral, DAILY, First dose (after last modificati on) on Jeri 04/05/24 at 0900, Until Discontinu ed, Routine [facility] cholecalcif denia (vitamin D3) tablet 2,000 Units 04-05 14:00: 00 Yes 2000U 2,000 Units, Oral, DAILY, First dose (after last modificati on) on Jeir 04/05/24 at 0900, Until Discontinu ed, Routine [facility] aspirin EC tablet 81 mg 04-05 14:00: 00 Yes 81mg 81 mg, Oral, DAILY, First dose (after last modificati on) on Jeri 04/05/24 at 0900, Until Discontinu ed, Routine [facility] atorvastati n (LIPITOR) tablet 40 mg 04-05 02:00: 00 Yes 40mg 40 mg, Oral, QHS, First dose (after last modificati on) on Tue04/04/24 at 2100, Until Discontinu ed, Rout[facility] magnesium sulfate in water 4 gram/50 mL (8 %) IV Piggyback 4 g 04-04 21:15: 00 04-05 00:16 :00 No 4g 4 g, IV Piggyback, at 25 mL/hr Administer over 120 Minutes, ONCE, 1 dose, On Tue04/04/24 at 1615, Routine [facility] KCL (KLOR-CON M20) tablet 40 mEq 04-04 19:45: 00 04-04 19:33 :00 No 40meq 40 mEq, Oral, ONCE, 1 dose, On Tue04/04/24 at 1445, Routine [facility] magnesium sulfate in water 2 gram/50 mL (4 %) infusion 2 g 04-04 19:45: 00 04-04 20:34 :00 No 2g 2 g, IV Piggyback, Administer over 60 Minutes, ONCE, 1 dose, On Tue04/04/24 at 1445, Routine [facility] gabapentin (NEURONTIN) 300 mg/6 mL oral solution 400 mg 04-04 19:00: 00 Yes 400mg 400 mg, Oral, TID, First dose (after last modificati on) on Tue04/04/24 at 1400, Until Discontinu ed, Routine [facility] pantoprazol e (PROTONIX) EC tablet 40 mg 04-04 15:45: 00 Yes 40mg 40 mg, Oral, DAILY, First dose on Tue04/04/24 at 1045, Until Discontinu ed, Routine [facility] lisinopriL (PRINIVIL,Z ESTRIL) tablet 5 mg 04-04 14:00: 00 Yes 5mg 5 mg, Oral, DAILY, First dose on Tue04/04/24 at 0900, Until Discontinu ed, Routine [facility] NaCl 0.9% (NS) bolus infusion 250 mL 04-04 13:45: 00 04-04 14:00 :00 No 250mL at 999 mL/hr, 250 mL, IV Piggyback, ONCE, 1 dose, On Tue04/04/24 at 0845, STAT [facility] LORazepam (ATIVAN) injection 0.5 mg 04-03 20:30: 00 04-03 20:11 :00 No .5mg 0.5 mg, Slow IV Push, ONCE, 1 dose, On Tue04/03/24 at 1530, Routine [facility] empaglifloz in (JARDIANCE) tablet 10 mg 04-03 17:00: 00 Yes 10mg 10 mg, Oral, DAILY, First dose on Tue04/03/24 at 1200, Until Discontinu ed, Routine, Is this a home medication ? No [facility] spironolact one (ALDACTONE) tablet 25 mg 04-02 14:00: 00 Yes 25mg 25 mg, Oral, DAILY, First dose on Tue04/02/24 at 0900, Until Discontinu ed, Routine [facility] KCL (KLOR-CON M20) tablet 40 mEq 04-02 10:00: 00 04-02 10:26 :00 No 40meq 40 mEq, Oral, ONCE, 1 dose, On Tue04/02/24 at 0500, Routine [facility] potassium chloride in water (KCL) 20 mEq/100 mL RTU IVPB 20 mEq 04-01 13:00: 00 04-01 21:58 :00 No 20meq 20 mEq, IV Piggyback, Q2H, 4 doses, First dose on Tue04/01/24 at 0800, Last dose on Tue04/01/24 at 1400, 100 mL [facility] magnesium sulfate in water 4 gram/50 mL (8 %) IV Piggyback 4 g 04-01 11:00: 00 04-01 19:42 :00 No 4g 4 g, IV Piggyback, at 25 mL/hr Administer over 120 Minutes, ONCE, 1 dose, On Tue04/01/24 at 0600, Routine [facility] potassium chloride in water (KCL) 20 mEq/100 mL RTU IVPB 20 mEq 04-01 10:15: 00 04-01 17:21 :00 No 20meq 20 mEq, IV Piggyback, Q2H, 4 doses, First dose on Tue04/01/24 at 0515, Last dose on Tue04/01/24 at 1000, 100 mL [facility] magnesium sulfate in water 2 gram/50 mL (4 %) infusion 2 g 03-31 13:30: 00 03-31 16:38 :00 No 2g 2 g, IV Piggyback, Administer over 60 Minutes, ONCE, 1 dose, On 03/31/24 at 0830, Routine [facility] furosemide (LASIX) tablet 20 mg 03-30 14:00: 00 Yes 20mg 20 mg, Oral, DAILY, First dose on Tue03/30/24 at 0900, Until Discontinu ed, Routine [facility] sterile talc (STERITALC) powder 4 g 03-30 13:45: 00 03-30 20:05 :00 No 4g 4 g, Intrapleur al, ONCE, 1 dose, On Tue03/30/24 at 0845, Routine [facility] [facility] lidocaine 2% (XYLOCAINE) 20 mg/mL (2 %) injection 400 mg 03-30 13:45: 00 03-30 20:05 :00 No 400mg 400 mg, Infiltrati on, ONCE, 1 dose, On Tue03/30/24 at 0845, STAT [facility] Potassium Bicarb-Citr ic Acid (EFFER-K) effervescen t tablet 40 mEq 03-30 08:15: 00 03-30 08:48 :00 No 40meq 40 mEq, Oral, ONCE, 1 dose, On Tue03/30/24 at 0315, Routine [facility] ipratropium -albuteroL (DUONEB) 0.5 mg-3 mg(2.5 mg base)/3 mL nebulizer solution 3 mL 03-30 04:45: 00 Yes 3mL 3 mL, Inhalation , QIDPRN, Starting on Tue03/29/24 at 2345, Until Discontinu ed, Routine, Wheezing [facility] ramelteon (ROZEREM) tablet 8 mg 03-30 02:00: 00 Yes 8mg 8 mg, Oral, QHS, First dose on Tue03/29/24 at 2100, Until Discontinu ed, Routine [facility] magnesium sulfate in water 2 gram/50 mL (4 %) infusion 2 g 03-29 15:15: 00 03-29 23:26 :00 No 2g 2 g, IV Piggyback, Administer over 60 Minutes, ONCE, 1 dose, On Tue03/29/24 at 1015, Routine [facility] potassium chloride in water (KCL) 20 mEq/100 mL RTU IVPB 20 mEq 03-29 15:00: 00 03-29 22:26 :00 No 20meq 20 mEq, IV Piggyback, Q2H, 3 doses, First dose on Tue03/29/24 at 1000, Last dose on Tue03/29/24 at 1400, 100 mL [facility] polyethylen e glycol 3350 powder 17 g 03-29 14:00: 00 Yes 17g 17 g, Oral, DAILY, First dose on Tue03/29/24 at 0900, Until Discontinu ed, [facility] cholecalc[facility] (vitamin D3) tablet 2,000 Units 03-29 14:00: 00 04-04 15:46 :01 No 2000U 2,000 Units, Enteral, DAILY, First dose (after last modificati on) on Tue03/29/24 at 0900, Until Discontinu ed, Routine [facility] aspirin EC tablet 81 mg 03-29 14:00: 00 04-04 15:46 :01 No 81mg 81 mg, Enteral, DAILY, First dose (after last modificati on) on Tue03/29/24 at 0900, Until Discontinu ed, Routine [facility] digoxin (LANOXIN) tablet 125 mcg 03-29 14:00: 04-04 15:46 :01 No 125ug 125 mcg, Enteral, DAILY, First dose (after last modificati on) on Tue03/29/24 at 0900, Until Discontinu ed, Routine [facility] atorvastati n (LIPITOR) tablet 40 mg 03-29 02:00: 00 04-04 15:46 :01 No 40mg 40 mg, Enteral, QHS, First dose (after last modificati on) on Tue03/28/24 at 2100, Until Discontinu ed, Routine [facility] metoprolol (LOPRESSOR) 10 mg/mL oral suspension 100 mg 03-29 01:00: 00 Yes 100mg 100 mg, Oral, BID, First dose on Tue03/28/24 at 1999, Until Discontinu ed, Routine [facility] gabapentin (NEURONTIN) 300 mg/6 mL oral solution 400 mg 03-29 01:00: 00 04-04 15:44 :23 No 400mg 400 mg, Enteral, TID, First dose on Tue03/28/24 at 2000, Until Discontinu ed, Routine [facility] ipratropium -albuteroL (DUONEB) 0.5 mg-3 mg(2.5 mg base)/3 mL nebulizer solution 3 mL 03-28 21:00: 00 03-30 04:41 :54 No 3mL 3 mL, Inhalation , Q4H, First dose on Tue03/28/24 at 1600, Until Discontinu ed, [facility] 40 mg 03-28 20:00: 00 04-04 15:44 :08 No 40mg 40 mg, Slow IV Push, Q24H, First dose on Tue03/28/24 at 1500, Until Discontinu ed [facility] cefTRIAXone (ROCEPHIN) 1,000 mg in NaCl 0.9% (NS) 100 mL MINI-BAG 03-28 17:30: 00 04-01 19:45 :00 No 1000mg 1,000 mg, IV Piggyback, Q24H ABX, 5 doses, First dose on Tue03/28/24 at 1230, Last dose on Tue04/01/24 at 1230, Administer over 30 Minutes, 100 mL, Reason for Anti-Infec tive: Empiric Therapy for Suspected Infection, Empiric Therapy Site: Respirator y, Duration of therapy: 5 days [facility] azithromyci n (ZITHROMAX) 500 mg in NaCl 0.9% (NS) 250 mL VIAL-MATE IV piggyback 03-28 17:30: 00 03-30 21:51 :00 No 500mg 500 mg, IV Piggyback, Q24H ABX, 3 doses, First dose on Tue03/28/24 at 1230, Last dose on Tue03/30/24 at 1230, Administer over 60 Minutes, 250 mL, Reason for Anti-Infec tive: Empiric Therapy for Suspected Infection, Empiric Therapy Site: Respirator y, Duration of therapy: 72 hours [facility] NaCl 0.9% (NS) IV infusion 500 mL 03-28 16:00: 00 03-28 17:30 :00 No 500mL at 150 mL/hr, IV Infusion, ONCE, 1 dose, On Tue03/28/24 at 1100, Routine [facility] propofoL IV infusion 03-28 02:14: 01 03-30 17:24 :02 No 5ug/kg/ min 5-50 mcg/kg/min ?36 kg (1.08-10.8 mL/hr), IV Infusion, TITRATE, Sedation-R ASS score (-1 to -2), Starting on Tue03/27/24 at 2114, Initiate infusion at 5 mcg/kg/min and titrate by 5 mcg/kg/min every 30 seconds to 10 minutes to goal sedation score. Maximum dose = 50 mcg/kg/min . If goal not maintained at maximum allowed dose, contact prescriber . Tubing and unused portions of vials should be discarded after 12 hours. [facility] midazolam (VERSED) injection 2 mg 03-28 01:30: 00 03-28 00:39 :00 No 2mg 2 mg, IV Push, ONCE, 1 dose, On Tue03/27/24 at 2030, Routine [facility] dexMEDEtomi dine 200 mcg in 0.9 % NaCl 50 mL (PRECEDEX) RTU IV infusion 03-28 01:09: 50 03-30 17:24 :02 No .2ug/kg /h 0.2-1.5 mcg/kg/hr ?36 kg (1.8-13.5 mL/hr), IV Infusion, TITRATE, Sedation-R ASS score (0 to -1), Starting on Tue03/27/24 at 2008, Initiate infusion at 0.2 mcg/kg/hr and titrate by 0.1 mcg/kg/hr every 5 minutes to goal sedation score. Maximum dose = 1.5 mcg/kg/hr. If goal not maintained at maximum allowed dose, contact prescriber . [facility] chlorhexidi ne (PERIDEX) 0.12 % mouthwash 15 mL 03-28 01:00: 00 03-30 01:19 :37 No 15mL 15 mL, Oral (Swish And Spit Out), BID, First dose on Tue03/27/24 at 1999, Until Discontinu ed, Routine [facility] iopamidol (ISOVUE 370-500 mL) injection 130 mL 03-28 00:15: 00 03-28 00:02 :00 No [id number] 130mL 130 mL, Intravenou s, ONCE, 1 dose, On Tue03/27/24 at 1915, Routine [facility] phenylephri ne (VAZCULEP) 10 mg in NaCl 0.9% (NS) 250 mL infusion 03-28 00:13: 15 03-29 00:12 :15 No .5ug/kg /min 0.5-2 mcg/kg/min ?36 kg (27-108 mL/hr), IV Infusion, TITRATE, MAP Goal > or = 65 mmHg, Starting on Tue03/27/24 at 191, For 24 hours, Initiate infusion at 0.5 mcg/kg/min . Increase by 0.1 mcg/kg/min every 30 seconds to 5 minutes as needed to reach and maintain goal blood pressure. Maximum dose = 2 mcg/kg/min . If goal not maintained at maximum allowed dose, contact prescriber . Administer only one peripheral intravenou s vasopresso r at a time. [facility] dexMEDEtomi dine 200 mcg in 0.9 % NaCl 50 mL (PRECEDEX) RTU IV infusion 03-27 23:43: 58 03-28 01:10 :13 No .2ug/kg /h 0.2-1.5 mcg/kg/hr ?36 kg (1.8-13.5 mL/hr), IV Infusion, TITRATE, Sedation-R ASS score (0 to -1), Starting on Tue03/27/24 at 1843, Initiate infusion at 0.2 mcg/kg/hr and titrate by 0.1 mcg/kg/hr every 30 minutes to goal sedation score. Maximum dose = 1.5 mcg/kg/hr. If goal not maintained at maximum allowed dose, contact prescriber . [facility] rocuronium (ZEMURON) injection 50 mg 03-27 23:30: 00 03-27 23:30 :00 No 50mg 50 mg, IV Push, ONCE, 1 dose, On Tue03/27/24 at 1830, Routine [facility] etomidate (AMIDATE) injection 20 mg 03-27 23:30: 00 03-27 23:30 :00 No 20mg 20 mg, Slow IV Push, ONCE, 1 dose, On Tue03/27/24 at 1830, Routine [facility] naloxone (NARCAN) injection 0.4 mg 03-27 23:00: 00 03-27 22:50 :00 No .4mg 0.4 mg, Slow IV Push, ONCE, 1 dose, On Tue03/27/24 at 1800, Routine [facility] naloxone (NARCAN) injection 0.4 mg 03-27 22:23: 00 03-27 22:30 :00 No .4mg 0.4 mg, Slow IV Push, ONCE, 1 dose, On Tue03/27/24 at 1730, STAT [facility] digoxin (LANOXIN) tablet 250 mcg 03-27 17:45: 00 03-28 15:10 :02 No 250ug 250 mcg, Oral, DAILY, First dose (after last reorder) on Tue03/27/24 at 1245, Until Discontinu ed, Routine [facility] magnesium sulfate in water 4 gram/50 mL (8 %) IV Piggyback 4 g 03-27 11:45: 00 03-27 16:01 :00 No 4g 4 g, IV Piggyback, at 25 mL/hr Administer over 120 Minutes, ONCE, 1 dose, On Tue03/27/24 at 0645, Routine [facility] sodium zirconium cyclosilica te (LOKELMA) 10 gram packet 10 g 03-27 03:00: 00 03-29 02:59 :00 No 10g 10 g, Oral, TID, 6 doses, First dose on Tue03/26/24 at 2200, Last dose on Tue03/28/24 at 1500, PRISCA [facility] insulin lispro (human) (HumaLOG U-100) injection 2 Units 03-26 23:16: 04 Yes 2U 2 Units, Subcutaneo us, PRN - SEE INSTRUCTIO NS, 1 dose, Starting on Tue03/26/24 at 1816, Until Discontinu ed, Routine, For blood glucose > 300 mg/dL [facility] dextrose 10% (D10W) bolus infusion 125 mL 03-26 23:16: 04 Yes 125mL 125 mL, Intravenou s, PRN - SEE INSTRUCTIO NS, Administer over 60 Minutes, Other, Administer once if after insulin administra tion, blood glucose is 71-140 mg/dL and patient is unable to eat a 15 g carb snack, Starting on Tue03/26/24 at 1816, For 1 dose, If patient is able to eat/swallo w, give 15 gram carb snack - Sprite or cranberry juice. [facility] insulin regular human (HUMULIN R) injection 3.6 Units 03-26 21:30: 00 03-26 21:36 :00 No .1U/kg 3.6 Units (0.1 Units/kg ?36 kg), IV Push, ONCE, 1 dose, On Tue03/26/24 at 1630, PRISCA, Indication for insulin: Hyperkalem ia- Please use the Insulin Protocol for Hyperkalem ia order set [facility] dextrose 50 % in water (D50W) injection 50 mL 03-26 21:30: 00 03-26 21:36 :00 No 50mL 50 mL, Slow IV Push, ONCE, 1 dose, On Tue03/26/24 at 1630, PRISCA [facility] calcium gluconate 2 g in NaCl 100 mL (ISO-OSM) RTU IV infusion 2 g 03-26 21:14: 59 03-27 17:37 :28 No 2g 2 g, IV Infusion, at 200 mL/hr Administer over 30 Minutes, PRN - SEE INSTRUCTIO NS, Starting on Tue03/26/24 at 1614, Until Tue03/27/24 at 1237, STAT, Potassium greater than or equal to 6.0 mEq/L with our without EKG changes [facility] glucagon (GLUCAGEN DIAGNOSTIC KIT) injection 1 mg 03-26 21:14: 27 Yes 1mg 1 mg, Intramuscu lar, PRN, Starting on Tue03/26/24 at 1614, Until Discontinu ed, PRISCA, Blood Glucose < or = 70 mg/dL and patient is NPO, unable to swallow or has mental changes. [facility] dextrose 50 % in water (D50W) injection 25 mL 03-26 21:14: 27 Yes 25mL 25 mL, Slow IV Push, PRN, Starting on Tue03/26/24 at 1614, Until Discontinu ed, PRISCA, Blood Glucose < or = 70 mg/dL and patient is NPO, unable to swallow or has mental status changes. [facility] KCL (KLOR-CON M20) tablet 40 mEq 03-26 15:15: 00 03-26 15:35 :00 No 40meq 40 mEq, Oral, ONCE, 1 dose, On Tue03/26/24 at 1015, Routine [facility] magnesium oxide (MAG-OX 400) tablet 800 mg 03-26 02:30: 00 03-26 02:21 :00 No 800mg 800 mg, Oral, ONCE, 1 dose, On 03/25/24 at 2130, Routine [facility] lidocaine 1% (PF) (XYLOCAINE) injection 5 mL 03-26 00:19: 26 Yes 5mL 5 mL, Subcutaneo us, PRN, 1 dose, Starting on Tue03/25/24 at 1919, Until Discontinu ed, Routine, Local anesthesia [facility] NaCl 0.9% (NS) injection 10 mL 03-26 00:: Yes 10mL 10 mL, Slow IV Push, PRN, Starting on Tue03/25/24 at 1919, Until Discontinu ed, Routine, line maintenanc e [facility] magnesium sulfate in water 4 gram/50 mL (8 %) IV Piggyback 4 g 03-25 19:30: 00 03-25 22:17 :00 No 4g 4 g, IV Piggyback, at 25 mL/hr Administer over 120 Minutes, ONCE, 1 dose, On Tue03/25/24 at 1430, Routine [facility] KCL (KLOR-CON M20) tablet 40 mEq 03-25 19:30: 00 03-25 19:54 :00 No 40meq 40 mEq, Oral, ONCE, 1 dose, On Tue03/25/24 at 1430, Routine [facility] KCL (KLOR-CON M20) tablet 20 mEq 03-25 14:00: 00 03-26 22:23 :08 No 20meq 20 mEq, Oral, DAILY, First dose (after last modificati on) on Tue03/25/24 at 0900, Until Discontinu ed, Routine [facility] ramelteon (ROZEREM) tablet 8 mg 03-25 03:45: 00 03-28 19:01 :50 No 8mg 8 mg, Oral, QHS, First dose on 03/24/24 at 2245, Until Discontinu ed, Routine [facility] metoprolol succinate XL (TOPROL XL) tablet 100 mg 03-25 01:00: 00 03-28 19:01 :50 No 100mg 100 mg, Oral, BID, First dose on 03/24/24 at 2000, Until Discontinu ed, Routine [facility] furosemide (LASIX) tablet 80 mg 03-24 22:00: 00 03-28 15:08 :21 No 80mg 80 mg, Oral, QAM+PM, First dose on 03/24/24 at 1700, Until Discontinu ed, Routine [facility] metoprolol tartrate (LOPRESSOR) tablet 50 mg 03-24 17:00: 00 03-24 17:14 :00 No 50mg 50 mg, Oral, Q6H, 1 dose, First dose (after last modificati on) on 03/24/24 at 1200, Routine [facility] spironolact one (ALDACTONE) tablet 25 mg 03-24 15:45: 00 03-27 22:23 :00 No 25mg 25 mg, Oral, DAILY, First dose on 03/24/24 at 1045, Until Discontinu ed, Routine [facility] digoxin (LANOXIN) tablet 250 mcg 03-24 14:00: 00 03-25 17:50 :10 No 250ug 250 mcg, Oral, DAILY, First dose on 03/24/24 at 0900, Until Discontinu ed, Routine [facility] magnesium sulfate in water 4 gram/50 mL (8 %) IV Piggyback 4 g 03-24 13:30: 00 03-24 16:59 :00 No 4g 4 g, IV Piggyback, at 25 mL/hr Administer over 120 Minutes, ONCE, 1 dose, On 03/24/24 at 0830, Routine [facility] potassium chloride 40 mEq in 100 mL IVPB 03-24 11:45: 00 03-24 15:22 :00 No 40meq 40 mEq, Intravenou s, ONCE, 1 dose, On 03/24/24 at 0645, 100 mL [facility] potassium chloride 40 mEq in 100 mL IVPB 03-24 09:00: 00 03-24 12:23 :21 No 40meq 40 mEq, Intravenou s, ONCE, 1 dose, On 03/24/24 at 0400, 100 mL [facility] magnesium sulfate in water 4 gram/50 mL (8 %) IV Piggyback 4 g 03-24 08:45: 00 03-24 10:07 :00 No 4g 4 g, IV Piggyback, at 25 mL/hr Administer over 120 Minutes, ONCE, 1 dose, On 03/24/24 at 0345, Routine [facility] iopamidol (ISOVUE 370-500 mL) injection 75 mL 03-23 21:45: 00 03-23 20:45 :00 No [id number] 75mL 75 mL, Intravenou s, ONCE, 1 dose, On Tue03/23/24 at 1645, Routine [facility] iopamidol (ISOVUE 370-500 mL) injection 03-23 19:05: 45 03-23 19:13 :08 No ONCE INTRA PROCEDURE, Starting on Tue03/23/24 at 1405, Until Tue03/23/24 at 1413, Routine, CV Intraproce dure [facility] FENTanyl PF (SUBLIMAZE (PF)) injection 03-23 18:31: 38 03-23 19:13 :08 No ONCE INTRA PROCEDURE, Starting on Tue03/23/24 at 1331, Until Tue03/23/24 at 1413, Routine, CV Intraproce dure [facility] midazolam (VERSED) injection 03-23 18:31: 28 03-23 19:13 :08 No ONCE INTRA PROCEDURE, Starting on Tue03/23/24 at 1331, Until Tue03/23/24 at 1413, Routine, CV Intraproce dure [facility] heparin 1,000 unit/mL injection 03-23 18:26: 01 03-23 19:13 :08 No ONCE INTRA PROCEDURE, Starting on Tue03/23/24 at 1326, Until Tue03/23/24 at 1413, Routine, CV Intraproce dure [facility] nitroglycer in (TRIDIL) 2 mg in 10 mL D5W for Cardiac Cath 03-23 18:25: 33 03-23 19:13 :08 No ONCE INTRA PROCEDURE, Starting on Tue03/23/24 at 1325, Until Tue03/23/24 at 1413, Routine, CV Intraproce dure [facility] lidocaine 1% (XYLOCAINE) 10 mg/mL (1 %) injection 03-23 18:16: 52 03-23 19:13 :08 No ONCE INTRA PROCEDURE, Starting on Tue03/23/24 at 1316, Until Tue03/23/24 at 1413, Routine, CV Intraproce dure [facility] midazolam (VERSED) injection 03-23 18:16: 15 03-23 19:13 :08 No ONCE INTRA PROCEDURE, Starting on Tue03/23/24 at 1316, Until Tue03/23/24 at 1413, Routine, CV Intraproce dure [facility] FENTanyl PF (SUBLIMAZE (PF)) injection 03-23 18:16: 03 03-23 19:13 :08 No ONCE INTRA PROCEDURE, Starting on Tue03/23/24 at 1316, Until Tue03/23/24 at 1413, Routine, CV Intraproce dure [facility] digoxin (LANOXIN) tablet 250 mcg 03-23 17:14: 00 03-23 20:05 :00 No 250ug 250 mcg, Oral, ONCE, 1 dose, On Tue03/23/24 at 1215, PRISCA [facility] cholecalcif denia (vitamin D3) tablet 2,000 Units 03-23 14:00: 00 03-28 19:01 :51 No 2000U 2,000 Units, Oral, DAILY, First dose on Tue03/23/24 at 0900, Until Discontinu ed, Routine [facility] aspirin EC tablet 81 mg 03-23 14:00: 00 03-28 19:01 :51 No 81mg 81 mg, Oral, DAILY, First dose on Tue03/23/24 at 0900, Until Discontinu ed, Routine [facility] heparin (porcine) injection 5,000 Units 03-23 13:00: 00 Yes 5000U 5,000 Units, Subcutaneo us, Q12H, First dose on Tue03/23/24 at 0800, Until Discontinu ed, Routine [facility] calcium carbonate (OSCAL-500) tablet 500 mg 03-23 13:00: 00 Yes 500mg 500 mg, Oral, BID MEALS, First dose on Tue03/23/24 at 0800, Until Discontinu ed, Routine [facility] furosemide (LASIX) injection 40 mg 03-23 13:00: 00 03-24 15:36 :22 No 40mg 40 mg, Slow IV Push, TID, First dose (after last modificati on) on Tue03/23/24 at 0800, Until Discontinu ed, Routine [facility] potassium chloride in water (KCL) 20 mEq/100 mL RTU IVPB 20 mEq 03-23 10:30: 00 03-23 11:31 :00 No 20meq 20 mEq, IV Piggyback, ONCE, 1 dose, On Tue03/23/24 at 0530, 100 mL [facility] magnesium sulfate in water 4 gram/50 mL (8 %) IV Piggyback 4 g 03-23 10:15: 00 03-23 12:39 :00 No 4g 4 g, IV Piggyback, at 25 mL/hr Administer over 120 Minutes, ONCE, 1 dose, On Tue03/23/24 at 0515, Routine [facility] atorvastati n (LIPITOR) tablet 40 mg 03-23 02:00: 00 03-28 19:01 :50 No 40mg 40 mg, Oral, QHS, First dose on Tue03/22/24 at 2100, Until Discontinu ed, Routine [facility] furosemide (LASIX) injection 20 mg 03-23 01:00: 00 03-23 12:09 :46 No 20mg 20 mg, Slow IV Push, Q12H, First dose on Jeri 03/22/24 at 2000, Until Discontinu ed, Routine [facility] esmolol in saline (BREVIBLOC) 2,500 mg/250 mL (10 mg/mL) infusion 03-23 00:23: 53 03-24 12:46 :55 No 25ug/kg /min 25-300 mcg/kg/min ?47.5 kg (7.125-85. 5 mL/hr, rounded to 7.13-85.5 mL/hr), IV Infusion, TITRATE, HR Goal Per Provider, HR <100, Starting on Jeri 03/22/24 at 1923, Initiate infusion at 25 mcg/kg/min . Titrate by 25 mcg/kg/min every 5 minutes to 10 minutes as needed to achieve and maintain goal heart rate or blood pressure. Maximum dose = 300 mcg/kg/min . If goal not maintained at maximum allowed dose, contact prescriber . [facility] aspirin E.C. (ECOTRIN) tablet 325 mg 03-22 22:00: 00 03-22 21:15 :00 No 325mg 325 mg, Oral, ONCE, 1 dose, On Jeri 03/22/24 at 1700, Routine [facility] metoprolol (LOPRESSOR) injection 5 mg 03-22 20:52: 52 Yes 5mg 5 mg, Intravenou s, Q6HPRN, Starting on Jeri 03/22/24 at 1552, Until Discontinu ed, Routine, Tachycardi a >140 [facility] metoprolol tartrate (LOPRESSOR) tablet 50 mg 03-22 18:45: 00 03-24 16:48 :44 No 50mg 50 mg, Oral, Q6H, First dose (after last modificati on) on Jeri 03/22/24 at 1345, Until Discontinu ed, Routine [facility] NaCl 0.9% (NS) injection 10 mL 03-22 17:38: 52 Yes 10mL 10 mL, Slow IV Push, PRN, Starting on Tue03/22/24 at 1238, Until Discontinu ed, Routine, line maintenanc e [facility] perflutren protein-A microsphr (OPTISON) injection 3 mL 03-22 17:15: 00 03-22 17:15 :00 No [id number] 3mL 3 mL, IV Push, ONCE, 1 dose, On Tue03/22/24 at 1215, Routine [facility] calcium gluconate 2 g in NaCl 100 mL (ISO-OSM) RTU IV infusion 2 g 03-22 15:30: 00 03-22 15:56 :00 No 2g 2 g, IV Infusion, at 200 mL/hr Administer over 30 Minutes, ONCE, 1 dose, On Tue03/22/24 at 1030, Routine [facility] acetaminoph en (TYLENOL) tablet 650 mg 03-22 14:16: 16 Yes 650mg 650 mg, Oral, Q6HPRN, Starting on Tue03/22/24 at 0916, Until Discontinu ed, Routine, Pain (scale 1-3), Temp > 38 C [facility] HYDROcodone -acetaminop hen (NORCO) 10-325 mg tablet 1 tablet 03-22 14:15: 55 03-27 22:23 :25 No 1{tbl} 1 tablet, Oral, Q6HPRN, Starting on Tue03/22/24 at 0915, Until Tue03/27/24 at 1723, Routine, Pain (scale 7-10) [facility] HYDROcodone -acetaminop hen (NORCO 5) 5-325 mg tablet 1 tablet 03-22 14:15: 43 03-27 22:23 :25 No 1{tbl} 1 tablet, Oral, Q6HPRN, Starting on Tue03/22/24 at 0915, Until Tue03/27/24 at 1723, Routine, Pain (scale 4-6) [facility] pantoprazol e (PROTONIX) EC tablet 40 mg 03-22 14:00: 00 03-28 19:01 :50 No 40mg 40 mg, Oral, DAILY, First dose on Jeri 03/22/24 at 0900, Until Discontinu ed [facility] gabapentin (NEURONTIN) capsule 400 mg 03-22 13:00: 00 03-28 19:01 :50 No 400mg 400 mg, Oral, TID, First dose on Tue03/22/24 at 0800, Until Discontinu ed, Routine [facility] digoxin (LANOXIN) injection 250 mcg 03-22 13:00: 00 03-22 14:16 :00 No 250ug 250 mcg, Intravenou s, Q6H, 1 dose, First dose on Jeri 03/22/24 at 0800, Routine [facility] diltiazem (CARDIZEM) tablet 30 mg 03-22 12:30: 00 03-22 16:22 :35 No 30mg 30 mg, Oral, Q6H, First dose on Tue03/22/24 at 0730, Until Discontinu ed, Routine [facility] metoprolol tartrate (LOPRESSOR) tablet 25 mg 03-22 11:00: 00 03-22 18:44 :30 No 25mg 25 mg, Oral, Q8H, First dose on Jeri 03/22/24 at 0600, Until Discontinu ed, Routine [facility] ondansetron (ZOFRAN (PF)) injection 4 mg 03-22 08:15: 00 03-22 07:22 :00 No 4mg 4 mg, Slow IV Push, ONCE, On Jeri 03/22/24 at 0315, For 1 dose, Doses of ondansetro n 16 mg and above need to be administer ed via IV piggyback. For Dose >=24mg ECG monitoring is advisable. [facility] digoxin (LANOXIN) injection 500 mcg 03-22 07:42: 00 03-22 07:59 :00 No 500ug 500 mcg, Intravenou s, ONCE, 1 dose, On Tue03/22/24 at 0245, Routine [facility] magnesium sulfate in water 4 gram/50 mL (8 %) IV Piggyback 4 g 03-22 05:45: 00 03-22 10:06 :00 No 4g 4 g, IV Piggyback, at 25 mL/hr Administer over 120 Minutes, ONCE, 1 dose, On Tue03/22/24 at 0045, PRISCA [facility] potassium chloride in water 10 mEq/100 mL RTU 10 mEq 03-22 05:00: 00 03-22 09:16 :00 No 10meq 10 mEq, IV Piggyback, Q1H, 4 doses, First dose on Tue03/22/24 at 0000, Last dose on Tue03/22/24 at 0300, Administer over 60 Minutes, 100 mL [facility] cyclobenzap rine (FLEXERIL) tablet 5 mg 03-22 04:50: 46 03-24 07:09 :51 No 5mg 5 mg, Oral, TIDPRN, Starting on Tue03/21/24 at 2350, Until 03/24/24 at 0209, Routine, Muscle Spasms [facility] HYDROcodone -acetaminop hen (NORCO) 10-325 mg tablet 1 tablet 03-22 04:50: 25 03-22 08:33 :36 No 1{tbl} 1 tablet, Oral, Q8HPRN, Starting on Tue03/21/24 at 2350, Until Tue03/22/24 at 0333, Routine, Pain (scale 4-6), Pain (scale 7-10) [facility] metoprolol (LOPRESSOR) injection 5 mg 03-22 00:45: 00 03-22 00:00 :00 No 5mg 5 mg, Intravenou s, ONCE, 1 dose, On Tue03/21/24 at 1945, Routine [facility] gabapentin 300 mg capsule 03-21 23:51: 05 Yes 400mg Take 400 mg by mouth in the morning and 400 mg at noon and 400 mg in the evening. [facility] HYDROcodone -acetaminop hen 10-325 mg tablet 03-21 23:51: 05 Yes 1{tbl} Take 1 tablet by mouth every 8 (eight) hours as needed. [facility] butalbital- aspirin-caf feine (FIORINAL) 50-325-40 mg per capsule 03-21 23:51: 05 Yes 1{capsu le} Take 1 capsule by mouth every 4 (four) hours as needed for Pain. [facility] metoprolol succinate 25 mg CSpX 03-21 23:51: 05 Yes 25mg Take 25 mg by mouth 3 (three) times daily. [facility] furosemide 20 mg tablet 03-21 23:51: 05 Yes 20mg Take 1 tablet by mouth in the morning. [facility] ergocalcife rol, vitamin d2, (VITAMIN D2) 1,250 mcg (50,000 unit) capsule 03-21 23:51: 05 Yes [id number] Take 1 capsule by mouth weekly. [facility] enoxaparin (LOVENOX) injection 45 mg 03-21 11:00: 00 03-22 14:29 :45 No 1mg/kg 45 mg (rounded from 44.5 mg = 1 mg/kg ?44.5 kg), Subcutaneo us, Q12H, First dose on Tue03/21/24 at 2000, Until Discontinu ed, Routine [facility] torsemide 10 mg tablet 03-12 00:00: 00 06-11 04:59 :00 No 10mg Take 1 tablet by mouth. [facility] butalbital- acetaminoph en-caff 50-325-40 mg tablet 10 00:00: 00 06-08 04:59 :00 No 1{tbl} Take 1 tablet by mouth. [facility] ergocalcife rol, vitamin d2, (VITAMIN D2) 1,250 mcg (50,000 unit) capsule 01-17 14:41: 25 Yes [id number] Take 1 capsule by mouth weekly. [facility] HYDROcodone -acetaminop hen 10-325 mg tablet 01-17 14:40: 37 Yes 1{tbl} Take 1 tablet by mouth every 8 (eight) hours as needed. [facility] butalbital- aspirin-caf feine (FIORINAL) 50-325-40 mg per capsule 01-17 14:40: 37 Yes 1{capsu le} Take 1 capsule by mouth every 4 (four) hours as needed for Pain. [facility] metoprolol succinate 25 mg CSpX 01-17 14:40: 37 Yes 25mg Take 25 mg by mouth 3 (three) times daily. [facility] furosemide 20 mg tablet 01-17 14:40: 37 Yes 20mg Take 1 tablet by mouth in the morning. [facility] gabapentin 300 mg capsule 01-17 14:40: 37 Yes 300mg Take 1 capsule by mouth in the morning and 1 capsule at noon and 1 capsule in the evening. [facility] tamsulosin (FLOMAX) capsule 0.4 mg 01-05 21:15: 00 Yes .4mg 0.4 mg, Oral, DAILY, First dose on Tue01/06/24 at 1515, Until Discontinu ed, PRISCA [facility] HYDROcodone -acetaminop hen 10-325 mg tablet 01-05 17:47: 34 Yes 1{tbl} Take 1 tablet by mouth every 8 (eight) hours as needed. [facility] butalbital- aspirin-caf feine (FIORINAL) 50-325-40 mg per capsule 01-05 17:47: 34 Yes 1{capsu le} Take 1 capsule by mouth every 4 (four) hours as needed for Pain. [facility] metoprolol succinate 25 mg CSpX 01-05 17:47: 34 Yes 25mg Take 25 mg by mouth 3 (three) times daily. [facility] furosemide 20 mg tablet 01-05 17:47: 34 Yes 20mg Take 1 tablet by mouth in the morning. [facility] gabapentin 300 mg capsule 01-05 17:47: 34 Yes 300mg Take 1 capsule by mouth in the morning and 1 capsule at noon and 1 capsule in the evening. [facility] cyclobenzap rine 5 mg tablet 01-05 15:42: 15 01-05 00:00 :00 No 10mg Take 2 tablets by mouth in the morning and 2 tablets at noon and 2 tablets in the evening. [facility] cyclobenzap rine 5 mg tablet 01-05 00:00: 00 Yes [id number] 5mg Take 1 tablet by mouth 3 (three) times daily as needed for Muscle Spasms. [facility] HYDROcodone -acetaminop hen (NORCO 5) 5-325 mg tablet 1 tablet 01-05 00:00: 00 Yes 1{tbl} 1 tablet, Oral, Q6H, First dose (after last modificati on) on Tue01/05/24 at 1800, Until Discontinu ed, Routine [facility] iopamidol (ISOVUE 370-500 mL) injection 60 mL 01-02 18:13: 00 01-02 18:13 :00 No [id number] 60mL 60 mL, Intravenou s, ONCE, 1 dose, On Tue01/03/24 at 1230, Routine [facility] morpHINE (2 mg/mL) injection 4 mg 01-02 15:15: 00 Yes 4mg 4 mg, Slow IV Push, PRN, Starting on Tue01/03/24 at 0915, Until Discontinu ed, Routine, PLeurodesi s [facility] doxycycline (VIBRAMYCIN ) 500 mg in NaCl 0.9% (NS) intrapleura l 01-02 14:00: 00 01-02 18:35 :00 No 500mg 500 mg, Intrapleur al, ONCE, 1 dose, On Tue01/03/24 at 0800, PRISCA
Re ason for Anti-Infec tive: Surgical Prophylaxi s
Surgi amina Prophylaxi s: Other (see Comments)< br>Duratio n of therapy: within 24 hours of surgery [facility] lidocaine 2% (XYLOCAINE) 20 mg/mL (2 %) injection 20 mL 01-02 14:00: 00 01-02 18:35 :00 No 20mL 20 mL, Infiltrati on, ONCE, 1 dose, On Tue01/03/24 at 0800, Routine [facility] lidocaine 1% (PF) (XYLOCAINE) injection 01-01 22:57: 00 01-01 22:57 :00 No PRN, Starting on Tue01/02/24 at 1657, Until Discontinu ed, Routine, Intra-op [facility] FENTanyl PF (SUBLIMAZE (PF)) injection 01-01 22:56: 04 01-01 23:03 :00 No Slow IV Push, PRN, Starting on Tue01/02/24 at 1656, Until Discontinu ed, Routine, Intra-op [facility] furosemide (LASIX) tablet 20 mg 12-31 15:00: 00 Yes 20mg 20 mg, Oral, DAILY, First dose on Tue01/01/24 at 0900, Until Discontinu ed, Routine [facility] cyclobenzap rine (FLEXERIL) tablet 10 mg 12-30 20:00: 00 Yes 10mg 10 mg, Oral, TID, First dose on Tue12/31/23 at 1400, Until Discontinu ed, Routine [facility] doxycycline (VIBRAMYCIN ) 500 mg in NaCl 0.9% (NS) intrapleura l 12-30 16:30: 00 12-30 18:15 :00 No 500mg 500 mg, Intrapleur al, ONCE, 1 dose, On 12/31/23 at 1030, STAT
Re ason for Anti-Infec tive: Surgical Prophylaxi s
Surgi amina Prophylaxi s: Cardiothor acic
Du ration of therapy: within 24 hours of surgery [facility] lidocaine PF 2% (XYLOCAINE- MPF) injection 20 mL 12-30 16:30: 00 12-30 17:45 :00 No 20mL 20 mL, Intrapleur al, ONCE, 1 dose, On 12/31/23 at 1030, STAT [facility] pantoprazol e (PROTONIX) EC tablet 40 mg 12-30 16:00: 00 Yes 40mg 40 mg, Oral, DAILY, First dose on Tue12/31/23 at 1000, Until Discontinu ed, Routine [facility] morpHINE (2 mg/mL) injection 4 mg 12-30 15:58: 26 12-30 18:34 :00 No 4mg 4 mg, Slow IV Push, PRN - SEE INSTRUCTSRAVANI NS, 1 dose, Starting on Tue12/31/23 at 0958, Until 12/31/23 at 1234, Routine, For procedure [facility] heparin (porcine) injection 5,000 Units 12-30 14:00: 00 Yes 5000U 5,000 Units, Subcutaneo us, Q12H, First dose on 12/31/23 at 0800, Until Discontinu ed, Routine [facility] cyclobenzap rine 5 mg tablet 12-30 13:31: 15 Yes 10mg Take 2 tablets by mouth in the morning and 2 tablets at noon and 2 tablets in the evening. [facility] furosemide 20 mg tablet 12-30 13:31: 15 Yes 20mg Take 1 tablet by mouth in the morning. [facility] cyclobenzap rine (FLEXERIL) tablet 5 mg 12-29 20:40: 04 Yes 5mg 5 mg, Oral, TIDPRN, Starting on Tue12/30/23 at 1440, Until Discontinu ed, Routine, Muscle Spasms [facility] HYDROcodone -acetaminop hen (NORCO 5) 5-325 mg tablet 1 tablet 12-29 16:30: 00 12-30 07:26 :24 No 1{tbl} 1 tablet, Oral, Q12H, First dose on Tue12/30/23 at 1030, Until Discontinu ed, Routine [facility] HYDROcodone -acetaminop hen (NORCO 5) 5-325 mg tablet 1 tablet 12-29 16:29: 43 01-04 23:00 :41 No 1{tbl} 1 tablet, Oral, Q6HPRN, Starting on Tue12/30/23 at 1029, Until Tue01/05/24 at 1700, Routine, Pain (scale 4-6) [facility] sulfur hexafluorid e microsphr (LUMASON) injection 5 mL 12-29 16:00: 00 12-29 16:00 :00 No [id number] 5mL 5 mL, Intravenou s, ONCE, 1 dose, On Tue12/30/23 at 1000, Routine [facility] sennosides- docusate sodium (SENOKOT-S) 8.6-50 mg per tablet 1 tablet 12-29 15:00: 00 Yes 1{tbl} 1 tablet, Oral, DAILY, First dose on Tue12/30/23 at 0900, Until Discontinu ed, Routine [facility] polyethylen e glycol 3350 powder 17 g 12-29 15:00: 00 Yes 17g 17 g, Oral, DAILY, First dose on Tue12/30/23 at 0900, Until Discontinu ed, Routine [facility] varenicline (CHANTIX) tablet 0.5 mg 12-29 15:00: 00 Yes .5mg 0.5 mg, Oral, DAILY, First dose on Tue12/30/23 at 0900, Until Discontinu ed, Routine [facility] gabapentin (NEURONTIN) capsule 300 mg 12-29 14:00: 00 Yes 300mg 300 mg, Oral, TID, First dose on Tue12/30/23 at 0800, Until Discontinu ed, Routine [facility] butalbital- acetaminoph en-caff (ESGIC) 50-325-40 mg tablet 1 tablet 12-29 13:08: 08 Yes 1{tbl} 1 tablet, Oral, Q4HPRN, Starting on Tue12/30/23 at 0708, Until Discontinu ed, Routine, Headache [facility] ipratropium -albuteroL (DUONEB) 0.5 mg-3 mg(2.5 mg base)/3 mL nebulizer solution 3 mL 12-29 13:08: 01 Yes 3mL 3 mL, Inhalation , TIDPRN, Starting on Tue12/30/23 at 0708, Until Discontinu ed, Routine, Wheezing [facility] potassium chloride in water (KCL) 20 mEq/100 mL RTU IVPB 20 mEq 12-29 08:30: 00 12-29 12:31 :00 No 20meq 20 mEq, IV Infusion, Q2H ES, 2 doses, First dose on Tue12/30/23 at 0230, Last dose on Tue12/30/23 at 0430, 100 mL [facility] QUEtiapine (SEROQUEL) tablet 25 mg 12-29 08:22: 15 Yes 25mg 25 mg, Oral, QHSPRN, Starting on Tue12/30/23 at 0222, Until Discontinu ed, Routine, Agitation [facility] nicotine (NICODERM) 21 mg/24 hr patch 1 Patch 12-29 08:21: 00 Yes 1{patch } 1 Patch, Topical, Administer over 24 Hours, Q24H, First dose on Tue12/30/23 at 0230, Until Discontinu ed, Routine [facility] magnesium sulfate in water 4 gram/50 mL (8 %) IV Piggyback 4 g 12-29 08:00: 00 12-29 10:12 :00 No 4g 4 g, IV Piggyback, at 25 mL/hr Administer over 120 Minutes, ONCE, 1 dose, On Tue12/30/23 at 0200, Routine [facility] KCL (KLOR-CON M20) tablet 40 mEq 12-29 07:45: 00 12-29 08:18 :29 No 40meq 40 mEq, Oral, Q2H, 2 doses, First dose on Tue12/30/23 at 0145, Last dose on Tue12/30/23 at 0200, Routine [facility] metoprolol succinate XL (TOPROL XL) tablet 25 mg 12-29 04:45: 00 Yes 25mg 25 mg, Oral, BID, First dose (after last modificati on) on Tue12/29/23 at 2245, Until Discontinu ed, Routine [facility] HYDROcodone -acetaminop hen (NORCO) 10-325 mg tablet 1 tablet 12-29 03:49: 18 Yes 1{tbl} 1 tablet, Oral, Q8HPRN, Starting on Tue12/29/23 at 2149, Until Discontinu ed, Routine, Pain (scale 7-10) [facility] metoprolol succinate 25 mg CSpX 22:30: 35 Yes 25mg Take 25 mg by mouth 3 (three) times daily. [facility] gabapentin 300 mg capsule 22:30: 35 Yes 300mg Take 1 capsule by mouth in the morning and 1 capsule at noon and 1 capsule in the evening. [facility] HYDROcodone -acetaminop hen 10-325 mg tablet 22:08: 24 Yes 1{tbl} Take 1 tablet by mouth every 8 (eight) hours as needed. [facility] butalbital- aspirin-caf feine (FIORINAL) 50-325-40 mg per capsule 21:36: 07 Yes 1{capsu le} Take 1 capsule by mouth every 4 (four) hours as needed for Pain. [facility] HYDROcodone -acetaminop hen 10-325 mg tablet 11-29 16:41: 42 Yes 1{tbl} Take 1 tablet by mouth every 8 (eight) hours as needed. [facility] cyclobenzap rine 5 mg tablet 11-29 16:41: 42 Yes 10mg Take 2 tablets by mouth in the morning and 2 tablets at noon and 2 tablets in the evening. [facility] butalbital- aspirin-caf feine (FIORINAL) 50-325-40 mg per capsule 11-29 16:41: 42 Yes 1{capsu le} Take 1 capsule by mouth every 4 (four) hours as needed for Pain. [facility] metoprolol succinate 25 mg CSpX 11-29 16:41: 42 Yes 25mg Take 25 mg by mouth 3 (three) times daily. [facility] furosemide 20 mg tablet 11-29 16:41: 42 Yes 20mg Take 1 tablet by mouth in the morning. [facility] gabapentin 300 mg capsule 11-29 16:41: 42 Yes 300mg Take 1 capsule by mouth in the morning and 1 capsule at noon and 1 capsule in the evening. [facility] melatonin (MELATIN) tablet 3 mg 11-28 08:15: 00 Yes 3mg 3 mg, Oral, QHS, First dose on 11/28/23 at 0215, Until Discontinu ed, Routine [facility] butalbital- acetaminoph en-caff (ESGIC) 50-325-40 mg tablet 1 tablet 11-27 17:00: 00 11-27 16:51 :00 No 1{tbl} 1 tablet, Oral, ONCE, 1 dose, On 11/27/23 at 1100, Routine [facility] sennosides (SENOKOT) tablet 8.6 mg 11-27 15:00: 00 Yes 8.6mg 8.6 mg, Oral, DAILY, First dose on 11/27/23 at 0900, Until Discontinu ed, Routine [facility] polyethylen e glycol 3350 powder 17 g 11-27 15:00: 00 Yes 17g 17 g, Oral, DAILY, First dose on 11/27/23 at 0900, Until Discontinu ed, Routine [facility] butalbital- acetaminoph en-caff (ESGIC) 50-325-40 mg tablet 1 tablet 11-26 16:00: 00 11-26 16:26 :00 No 1{tbl} 1 tablet, Oral, ONCE, 1 dose, On 11/26/23 at 1000, Routine [facility] metoprolol succinate XL (TOPROL XL) tablet 25 mg 11-26 02:00: 00 Yes 25mg 25 mg, Oral, BID, First dose (after last modificati on) on Tue11/25/23 at 2000, Until Discontinu ed [facility] metoprolol succinate XL (TOPROL XL) tablet 25 mg 11-25 20:15: 00 11-25 20:18 :31 No 25mg 25 mg, Oral, TID, First dose (after last modificati on) on Tue11/25/23 at 1415, Until Discontinu ed [facility] acetaminoph en (TYLENOL) tablet 1,000 mg 11-25 19:30: 00 11-25 19:20 :00 No 1000mg 1,000 mg, Oral, ONCE, 1 dose, On Tue11/25/23 at 1330, Routine [facility] furosemide (LASIX) tablet 20 mg 11-25 15:00: 00 Yes 20mg 20 mg, Oral, DAILY, First dose on Tue11/25/23 at 0900, Until Discontinu ed, Routine [facility] metoprolol succinate XL (TOPROL XL) tablet 25 mg 11-25 15:00: 00 11-25 20:11 :15 No 25mg 25 mg, Oral, DAILY, First dose on Tue11/25/23 at 0900, Until Discontinu ed [facility] heparin (porcine) injection 5,000 Units 11-25 14:00: 00 Yes 5000U 5,000 Units, Subcutaneo us, Q12H, First dose (after last modificati on) on Tue11/25/23 at 0800, Until Discontinu ed, Routine [facility] ipratropium -albuteroL (DUONEB) 0.5 mg-3 mg(2.5 mg base)/3 mL nebulizer solution 3 mL 11-25 12:14: 09 Yes 3mL 3 mL, Inhalation , QIDPRN, Starting on Tue11/25/23 at 0614, Until Discontinu ed, Routine, Wheezing, Shortness of Breath [facility] HYDROcodone -acetaminop hen (NORCO) 10-325 mg tablet 1 tablet 11-25 07:50: 24 Yes 1{tbl} 1 tablet, Oral, Q8HPRN, Starting on Tue11/25/23 at 0150, Until Discontinu ed, Routine, Pain (scale 7-10) [facility] gabapentin (NEURONTIN) capsule 300 mg 11-25 07:50: 12 Yes 300mg 300 mg, Oral, TIDPRN, Starting on Tue11/25/23 at 0150, Until Discontinu ed, Routine, Pain (scale 4-6) [facility] cyclobenzap rine (FLEXERIL) tablet 10 mg 11-25 07:49: 59 Yes 10mg 10 mg, Oral, TIDPRN, Starting on Tue11/25/23 at 0149, Until Discontinu ed, Routine, Muscle Spasms [facility] acetaminoph en (TYLENOL) tablet 650 mg 11-25 07:00: 57 Yes 650mg 650 mg, Oral, Q6HPRN, Starting on Tue11/25/23 at 0100, Until Discontinu ed, Routine, Pain (scale 1-3) [facility] ibuprofen 600 mg tablet 11-25 00:59: 53 11-25 00:00 :00 No 800mg Take 800 mg by mouth 3 (three) times daily. [facility] gabapentin ER 300 mg tablet, extended release 24 hr 11-25 00:59: 47 11-25 00:00 :00 No 300mg Take 300 mg by mouth 3 (three) times daily. [facility] amLODIPine 5 mg tablet 11-25 00:59: 41 11-25 00:00 :00 No 5mg Take 5 mg by mouth daily. [facility] amitriptyli ne 75 mg tablet 11-25 00:59: 35 11-25 00:00 :00 No 75mg Take 75 mg by mouth at bedtime. [facility] Vitamin D3 5000 intl units oral capsule 2022-10 23:48: 00 Yes 125 microgram = 1 cap, PO, Daily, # 30 cap, 1 Refill(s), Pharmacy: [facility] #[id number], 144.7, cm, 09/07/23 21:48:00 BUGGY OPERATOR, Height, 45, kg, 09/07/23 21:48:00 BUGGY OPERATOR, Weight Memoria susie Magdy aspirin 81 mg tablet, enteric coated 2022-10 23:41: 00 Yes 81 mg = 1 tab, PO, BID, # 42 tab, 3 Refill(s), Pharmacy: [facility] #[id number], 144.7, cm, 09/07/23 21:48:00 BUGGY OPERATOR, Height, 45, kg, 09/07/23 21:48:00 BUGGY OPERATOR, Weight Memoria l Magdy acetaminoph en 500 mg oral tablet. 2022-10 20:32: 00 Yes 100.4 F, # 24 tab, 0 Refill(s), Pharmacy: [facility] #[id number], 144.7, cm, 09/07/23 21:48:00 BUGGY OPERATOR, Height, 45, kg, 09/07/23 21:48:00 BUGGY OPERATOR, Weight Memoria susie Magdy docusate-se nna 50 mg-8.6 mg oral tablet 2022-10 20:32: 00 Yes 1 tab, PO, Q12H, # 10 tab, 0 Refill(s), Pharmacy: [facility] #[id number], 144.7, cm, 09/07/23 21:48:00 BUGGY OPERATOR, Height, 45, kg, 09/07/23 21:48:00 BUGGY OPERATOR, Weight Memoria l Magdy tramadol 50 mg oral tablet 2022-10 20:32: 00 Yes 50 mg = 1 tab, PO, Q6H, PRN Pain Score 7-10, # 10 tab, 0 Refill(s), Pharmacy: [facility] #[id number], 144.7, cm, 09/07/23 21:48:00 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 OPERATOR, Height, 45, kg, 09/07/23 21:48:00 BUGGY OPERATOR, Weight Memoria l Magdy gabapentin 100 mg oral capsule 2022-10 20:31: 00 Yes 100 mg = 1 cap, PO, Q8H-06, 0 Refill(s) [facility] Metoprolol Succinate ER 25 mg oral tablet, extended release 2022-10 20:31: 00 Yes 25 mg = 1 tab, PO, Daily, 0 Refill(s) Memwillian [facility] amLODIPine 5 mg oral tablet 2022-10 20:30: 00 Yes 5 mg = 1 tab, PO, Daily, 0 Refill(s) [facility] cyclobenzap rine 10 mg oral tablet 2022-10 20:30: 00 Yes 10 mg = 1 tab, PO, Q8H, 0 Refill(s) [facility] furosemide 20 mg oral tablet 2022-10 20:30: 00 Yes 20 mg = 1 tab, PO, Daily, 0 Refill(s) Memwillian [facility] traMADoL 50 mg tablet 2022-10 00:00: 00 Yes 50mg Take 1 tablet by mouth. [facility] sennosides- docusate sodium 8.6-50 mg per tablet 2022-10 00:00: 00 Yes 1{tbl} Take 1 tablet by mouth every 12 (twelve) hours. [facility] Fioricet 300 mg-50 mg-40 mg oral capsule 2022-10 19:17: 00 Yes 1 cap, PO, Q6H, PRN migraine, 0 Refill(s) [facility] omeprazole 20 mg oral delayed release capsule 2022-10 19:17: 00 Yes 20 mg = 1 cap, PO, QAM, 0 Refill(s) [facility] Vitamin D2 50,000 intl units (1.25 mg) oral capsule 2022-10 19:16: 00 Yes 50,000 IntlUnit = 1 cap, PO, QThu, 0 Refill(s) [facility] omeprazole 20 mg capsule 07-08 00:00: 00 Yes 20mg Take 1 capsule by mouth. [facility] pantoprazol e (PROTONIX) 40 MG tablet 04-01 00:00: 00 05-01 23:59 :00 No 40mg QD Take 1 tablet (40 mg total) by mouth in the morning for 30 days. [facility] gabapentin (NEURONTIN) 300 MG capsule 03-31 00:00: 00 03-30 23:59 :00 No 300mg [id number] 3D Take 1 capsule (300 mg total) by mouth in the morning and 1 capsule (300 mg total) at noon and 1 capsule (300 mg total) in the evening. [facility] cyclobenzap rine (FLEXERIL) 10 MG tablet 03-31 00:00: 00 04-10 23:59 :00 No 10mg Take 1 tablet (10 mg total) by mouth 3 (three) times daily as needed for Muscle spasms for up to 10 days. [facility] HYDROcodone -acetaminop hen 10-325 mg tablet 04-03 23:15: 04 Yes 1{tbl} Take 1 tablet by mouth every 8 (eight) hours as needed. [facility] gabapentin ER 300 mg tablet, extended release 24 hr 04-03 23:15: 04 Yes 300mg Take 300 mg by mouth 3 (three) times daily. [facility] ibuprofen 600 mg tablet 04-03 23:15: 04 Yes 800mg Take 800 mg by mouth 3 (three) times daily. [facility] cyclobenzap rine 5 mg tablet 04-03 23:15: 04 Yes 10mg Take 10 mg by mouth 3 (three) times daily. [facility] amitriptyli ne 75 mg tablet 04-03 23:15: 04 Yes 75mg Take 75 mg by mouth at bedtime. [facility] amLODIPine 5 mg tablet 04-03 23:15: 04 Yes 5mg Take 5 mg by mouth daily. [facility] butalbital- aspirin-caf feine (FIORINAL) 50-325-40 mg per capsule 04-03 23:15: 04 Yes 1{capsu le} Take 1 capsule by mouth every 4 (four) hours as needed for Pain. [facility] metoprolol succinate 25 mg CSpX 04-03 23:15: 04 Yes 25mg Take 25 mg by mouth 3 (three) times daily. [facility] HYDROcodone -acetaminop hen 10-325 mg tablet 04-03 18:15: 04 Yes 1{tbl} Take 1 tablet by mouth every 8 (eight) hours as needed. [facility] gabapentin ER 300 mg tablet, extended release 24 hr 04-03 18:15: 04 Yes 300mg Take 300 mg by mouth 3 (three) times daily. [facility] ibuprofen 600 mg tablet 04-03 18:15: 04 Yes 800mg Take 800 mg by mouth 3 (three) times daily. [facility] cyclobenzap rine 5 mg tablet 04-03 18:15: 04 Yes 10mg Take 10 mg by mouth 3 (three) times daily. [facility] amitriptyli ne 75 mg tablet 04-03 18:15: 04 Yes 75mg Take 75 mg by mouth at bedtime. [facility] amLODIPine 5 mg tablet 04-03 18:15: 04 Yes 5mg Take 5 mg by mouth daily. [facility] butalbital- aspirin-caf feine (FIORINAL) 50-325-40 mg per capsule 04-03 18:15: 04 Yes 1{capsu le} Take 1 capsule by mouth every 4 (four) hours as needed for Pain. [facility] metoprolol succinate 25 mg CSpX 04-03 18:15: 04 Yes 25mg Take 25 mg by mouth 3 (three) times daily. [facility] butalbital- acetaminoph en-caff (ESGIC) 50-325-40 mg tablet 1 tablet 04-03 10:52: 03 Yes 1{tbl} 1 tablet, Oral, Q6HPRN, Starting Tue04/03/21 at 0552, Until Discontinu ed, Routine, Headache [facility] levoFLOXaci n 750 mg tablet 04-03 00:00: 00 04-14 04:59 :00 No [id number] 750mg Take 1 tablet by mouth every 24 (twenty-fo ur) hours for 10 days. [facility] magnesium sulfate in water 2 gram/50 mL (4 %) infusion 2 g 04-02 23:45: 00 04-02 23:31 :00 No 2g 2 g, IV Piggyback, ONCE, 1 dose, [facility] 04/02/21 at 1845, Routine [facility] cefTRIAXone (ROCEPHIN) 2,000 mg in NaCl 0.9% (NS) 100 mL MINI-BAG 04-02 18:00: 00 Yes 2000mg 2,000 mg, IV Piggyback, Q24H ABX, First dose (after last modificati on) on Jeri 04/02/21 at 1300, Until Discontinu ed, 100 mL
Reas on for Anti-Infec tive: Empiric Therapy for Suspected Infection< br>Empiric Therapy Site: Urine
D uration of therapy: 72 hours [facility] magnesium sulfate in water 2 gram/50 mL (4 %) infusion 2 g 04-02 14:30: 00 04-02 14:25 :00 No 2g 2 g, IV Piggyback, ONCE, 1 dose, [facility] 04/02/21 at 0930, Routine [facility] amLODIPine (NORVASC) tablet 5 mg 04-02 14:00: 00 Yes 5mg 5 mg, Oral, DAILY, First dose (after last modificati on) on Jeri 04/02/21 at 0900, Until Discontinu ed, Routine [facility] phosphorus (K PHOS NEUTRAL) tablet 1 tablet 04-02 13:30: 00 Yes 250mg 1 tablet (250 mg), Oral, QID, First dose on Jeri 04/02/21 at 0830, Until Discontinu ed, Routine [facility] KCL (KLOR-CON M20) tablet 60 mEq 04-02 13:30: 00 04-03 13:27 :27 No 60meq 60 mEq, Oral, BID, First dose (after last reorder) on Tue04/02/21 at 0830, Until Discontinu ed, Routine [facility] potassium chloride in water 10 mEq/100 mL RTU 10 mEq 04-02 13:30: 00 04-02 18:55 :00 No 10meq 10 mEq, IV Piggyback, Q1H, 4 doses, First dose on Tue04/02/21 at 0830, Last dose on Tue04/02/21 at 1100, 100 mL [facility] NaCl 0.9% (NS) IV infusion 1,000 mL 04-02 06:30: 00 04-02 05:37 :00 No 1000mL at 100 mL/hr, IV Infusion, ONCE, 1 dose, Tue04/02/21 at 0130, Routine [facility] nicotine (NICODERM) 14 mg/24 hr patch 1 Patch 04-02 01:45: 00 Yes 1{patch } 1 Patch, Topical, Administer over 24 Hours, Q24H, First dose on Tue04/01/21 at 2045, Until Discontinu ed, [facility] (TOPROL XL) tablet 25 mg 04-02 01:00: 00 Yes 25mg 25 mg, Oral, TID, First dose on Tue04/01/21 at 1999, Until [facility]continu ed [facility] (NE[facility]IN[facility] capsule 300 mg 04-02 01:00: 00 04-02 05:27 :59 No 300mg 300 mg, Oral, TID, First dose on Tue04/01/21 at 1999, Until Discontinu ed [facility] cyclobenzap rine (FLEXERIL) tablet 10 mg 04-02 01:00: 00 04-02 05:28 :04 No 10mg 10 mg, Oral, TID, First dose on Tue04/01/21 at 1999, Until Discontinu ed, Routine [facility] metoprolol succinate XL 25 mg 24 hr tablet 04-01 23:54: 35 04-01 00:00 :00 No 25mg Take 25 mg by mouth daily. [facility] predniSONE 10 mg tablet 04-01 23:54: 35 04-01 00:00 :00 No 10mg Take 10 mg by mouth daily. [facility] HYDROcodone -acetaminop hen (NORCO) 10-325 mg tablet 1 tablet 04-01 23:53: 35 Yes 1{tbl} 1 tablet, Oral, Q8HPRN, Starting Tue04/01/21 at 1853, Until Discontinu ed, Routine, Pain (scale 7-10) [facility] cefTRIAXone (ROCEPHIN) 1,000 mg in NaCl 0.9% (NS) 50 mL MINI-BAG 04-01 22:15: 00 04-01 22:03 :00 No 1000mg 1,000 mg, IV Piggyback, ONCE, 1 dose, Tue04/01/21 at 1715, 50 mL
Reas on for Anti-Infec tive: Empiric Therapy for Suspected Infection< br>Empiric Therapy Site: Urine
D uration of therapy: 72 hours [facility] enoxaparin (LOVENOX) injection 30 mg 04-01 22:00: 00 Yes 30mg 30 mg, Subcutaneo us, DAILY, First dose on Tue04/01/21 at 1700, Until Discontinu ed, Routine [facility] NaCl 0.9% (NS) IV infusion 1,000 mL 04-01 21:15: 00 04-02 05:28 :20 No 1000mL at 100 mL/hr, IV Infusion, CONTINUOUS , Starting Tue04/01/21 at 1615, Until Jeri 04/02/21 at 0028, Routine [facility] iopamidol (ISOVUE 370-500 mL) injection 130 mL 04-01 20:08: 00 04-01 20:07 :00 No [id number] 130mL 130 mL, Intravenou s, ONCE, 1 dose, Tue04/01/21 at 1530, Routine [facility] acetaminoph en (TYLENOL) tablet 650 mg 04-01 20:03: 59 Yes 650mg 650 mg, Oral, Q6HPRN, Starting Tue04/01/21 at 1503, Until Discontinu ed, Routine, Pain (scale 1-3) [facility] KCL (KLOR-CON M20) tablet 40 mEq 04-01 20:00: 00 04-01 18:53 :00 No 40meq 40 mEq, Oral, ONCE, 1 dose, Tue04/01/21 at 1500, Routine [facility] cefTRIAXone (ROCEPHIN) 1,000 mg in NaCl 0.9% (NS) 50 mL MINI-BAG 04-01 19:00: 00 04-01 18:48 :00 No 1000mg 1,000 mg, IV Piggyback, ONCE, 1 dose, Tue04/01/21 at 1400, 50 mL
Reas on for Anti-Infec tive: Empiric Therapy for Suspected Infection< br>Empiric Therapy Site: Urine
D uration of therapy: 72 hours [facility] acetaminoph en (TYLENOL) tablet 1,000 mg 04-01 18:30: 00 04-01 17:21 :00 No 1000mg 1,000 mg, Oral, ONCE, 1 dose, Tue04/01/21 at 1330, Routine [facility] NaCl 0.9% (NS) bolus infusion 1,000 mL 04-01 18:30: 00 04-01 18:14 :00 No 1000mL at 999 mL/hr, 1,000 mL, IV Infusion, ONCE, 1 dose, Tue04/01/21 at 1330, STAT [facility] potassium phosphate-s odium phosphate 250 mg-280 mg-160 mg oral powder for reconstitut ion 01-05 19:55: 00 Yes 1 pkt, PO, BID, # 60 pkt, 0 Refill(s) Joesph Curran spironolact one 25 mg oral tablet 01-05 19:55: 00 Yes 25 mg = 1 tab, PO, BID, # 60 tab, 0 Refill(s) Joesph Curran metoprolol 25 mg oral tablet, extended release 01-05 19:55: 00 Yes 25 mg = 1 tab, PO, Daily, # 30 tab, 2 Refill(s) Joesph Curran atorvastati n 40 mg oral tablet 01-05 19:55: 00 Yes 40 mg = 1 tab, PO, Bedtime, # 30 tab, 2 Refill(s) Joesph Curran Ergocalcife rol 01-05 15:00: 00 No Notes: (Same as: Vitamin D) "Do Not Crush" Joesph Curran potassium phosphate 01-05 12:16: 00 No Notes: (Same as: K Phosphate. ) 1 mMol phoshate has 1.47 mEq potassium Infuse over 4 hours Joesph Curran Famotidine 20 MG Oral Tablet [Pepcid] 01-04 15:00: 00 No Notes: (Same as: Pepcid) Joesph Curran Indomethaci n 01-04 03:45: 00 No Notes: (Same as: Indocin) Take with food Joesph Curran Spironolact one 01-04 03:45: 00 No Notes: (Same As: Aldactone) Joesph Curran atorvastati n 01-04 03:00: 00 No Notes: (Same as: Lipitor) Joesph Curran Amitriptyli ne 01-04 03:00: 00 No Notes: (Same as: Elavil) Joesph Curran Nicotine 01-03 20:12: 00 No 21 mg, Route: TOP, Drug form: ERFILM, ONCE, Dosing Weight 44.091, kg, Start date: 01/03/18 14:12:00 BUGGY OPERATOR, Stop date: 01/03/18 14:12:00 BUGGY OPERATOR Joesph Curran Aspirin 81 MG Enteric Coated Tablet 01-03 15:00: 00 No Notes: Do not crush or chew. (Same As: Ecotrin) Joesph Curran enalapril 01-03 15:00: 00 No 2.5 mg, Route: PO, Drug form: TAB, Daily, Dosing Weight 44.273, kg, Start date: 01/03/18 9:00:00 BUGGY OPERATOR, Duration: 30 day, Stop date: 02/01/18 9:00:00 CDT Joesph Curran metoprolol extended release 01-03 15:00: 00 No Notes: (Same as: Toprol XL) Do Not Crush Joesph Curran Potassium Chloride 01-03 12:00: 00 No Notes: (Same as: KCL) Infuse no faster than 10 mEq/hr if given peripheral ly. Joesph Curran Saline Flush 0.9% 01-03 10:08: 00 No Notes: (Same as: BD Posiflush) Joesph Curran Lidocaine Hydrochlori de 10 MG/ML Injectable Solution 01-03 10:08: 00 No Notes: Preservati ve free. (Same as: Xylocaine MPF) Joesph Curran cyclobenzap rine 10 mg oral tablet 01-03 08:51: 00 No 10 mg = 1 tab, PO, TID, 0 Refill(s) Joesph Curran Bisacodyl 01-03 08:51: 00 No 5 mg, Daily, 0 Refill(s) Joesph Curran ibuprofen 800 mg oral tablet 01-03 08:51: 00 No 800 mg = 1 tab, PO, BID, 0 Refill(s) Joesph Curran predniSONE 10 mg oral tablet 01-03 08:51: 00 Yes 10 mg = 1 tab, PO, Daily, 0 Refill(s) Joesph Curran amitriptyli ne 75 mg oral tablet 01-03 08:51: 00 Yes 75 mg = 1 tab, PO, Bedtime, # 30 tab, 0 Refill(s) Joesph Curran Butalbital Compound oral tablet 01-03 08:51: 00 Yes 2 tab, PO, BID, 0 Refill(s) Joesph Curran Hydrochloro thiazide 01-03 08:51: 00 No 50 mg, PO, Daily, 0 Refill(s) Joesph Curran NS + KCL 20mEq/L 1000ml (Premix) 1,000 mL 01-03 08:38: 00 No Notes: PREMIX IV - Do Not Alter WASTE: F/P - Sink; E - [employer] Joesph Curran Ondansetron 01-03 07:51: 00 No Notes: (Same as: Zofran ODT) Joesph Curran Morphine 01-03 07:51: 00 No Notes: (Same as:MORPhin e Sulfate) Joesph Curran Nitroglycer in 01-03 07:51: 00 No Notes: (Same as:Nitroqu ick, Nitrostat) "Do Not Crush" Sublingual tablet Joesph Lizarragaann Immunizations Ordered Immunization Name Filled Immunization Name Date Status Comments Source Influenza Virus Vaccine 2020-11-27 00:00:00 Completed [facility] Influenza Virus Vaccine 2020-11-27 00:00:00 Completed [facility] Influenza Virus Vaccine 2020-11-27 00:00:00 Completed [facility] Influenza Virus Vaccine Unknown Completed [facility] Influenza Virus Vaccine Unknown Completed [facility] Influenza Virus Vaccine Unknown Completed [facility] Influenza Virus Vaccine Unknown Completed [facility] Influenza Virus Vaccine Unknown Completed [facility] Influenza Virus Vaccine Unknown Completed [facility] Influenza Virus Vaccine Unknown Completed [facility] Influenza Virus Vaccine Unknown Completed [facility] Influenza Virus Vaccine Unknown Completed [facility] Influenza Virus Vaccine Unknown Completed [facility] Influenza Virus Vaccine Unknown Completed [facility] Influenza Virus Vaccine Unknown Completed [facility] Influenza Virus Vaccine Unknown Completed [facility] Influenza Virus Vaccine Unknown Completed [facility] Influenza Virus Vaccine Unknown Completed [facility] Influenza Virus Vaccine Unknown Completed [facility] Influenza Virus Vaccine Unknown Completed [facility] Influenza Virus Vaccine Unknown Completed [facility] Influenza Virus Vaccine Unknown Completed [facility] diphtheria/pertussi s, acel/tetanus adult Unknown Completed Anamaria monterroso diphtheria/pertussi s, acel/tetanus adult Unknown Completed Anamaria monterroso Vital Signs Vital Name Observation Time Observation Value Comments S ource Systolic blood pressure 2025-05-31 15:07:00 109 mm[Hg] [facility] Diastolic blood pressure 2025-05-31 15:07:00 59 mm[Hg] [facility] Heart rate 2025-05-31 15:07:00 55 /min [facility] Respiratory rate 2025-05-31 15:07:00 22 /min [facility] Body height 2025-05-31 15:07:00 144.8 cm [facility] Body weight 2025-05-31 15:07:00 36.089 kg [facility] BMI 2025-05-31 15:07:00 17.22 kg/m2 [facility] Oxygen saturation in Arterial blood by Pulse oximetry 2025-05-31 15:07:00 98 /min [facility] Systolic blood pressure 2025-05-08 14:24:00 106 mm[Hg] [facility] Diastolic blood pressure 2025-05-08 14:24:00 65 mm[Hg] [facility] Heart rate 2025-05-08 14:24:00 89 /min [facility] Body temperature 2025-05-08 14:24:00 36.61 Maeve [facility] Respiratory rate 2025-05-08 14:24:00 18 /min [facility] Body height 2025-05-08 14:24:00 144.8 cm [facility] Body weight 2025-05-08 14:24:00 35.834 kg [facility] BMI 2025-05-08 14:24:00 17.10 kg/m2 [facility] Oxygen saturation in Arterial blood by Pulse oximetry 2025-05-08 14:24:00 97 /min [facility] Systolic blood pressure 2024-08-22 14:30:00 138 mm[Hg] [facility] Diastolic blood pressure 2024-08-22 14:30:00 85 mm[Hg] [facility] Heart rate 2024-08-22 14:30:00 111 /min [facility] Body temperature 2024-08-22 14:30:00 37 Maeve [facility] Respiratory rate 2024-08-22 14:30:00 20 /min [facility] Body height 2024-08-22 14:30:00 142.2 cm [facility] Body weight 2024-08-22 14:30:00 37.467 kg [facility] BMI 2024-08-22 14:30:00 18.52 kg/m2 [facility] Oxygen saturation in Arterial blood by Pulse oximetry 2024-08-22 14:30:00 95 /min [facility] Systolic blood pressure 2024-05-31 18:50:00 102 mm[Hg] [facility] Diastolic blood pressure 2024-05-31 18:50:00 64 mm[Hg] [facility] Heart rate 2024-05-31 18:50:00 84 /min [facility] Body temperature 2024-05-31 18:50:00 37.22 Maeve [facility] Respiratory rate 2024-05-31 18:50:00 20 /min [facility] Body height 2024-05-31 18:50:00 144.8 cm [facility] Body weight 2024-05-31 18:50:00 36.288 kg [facility] BMI 2024-05-31 18:50:00 17.31 kg/m2 [facility] Oxygen saturation in Arterial blood by Pulse oximetry 2024-05-31 18:50:00 92 /min [facility] Systolic blood pressure 2024-04-25 14:47:00 116 mm[Hg] [facility] Diastolic blood pressure 2024-04-25 14:47:00 73 mm[Hg] [facility] Heart rate 2024-04-25 14:47:00 93 /min [facility] Body temperature 2024-04-25 14:47:00 37.06 Maeve [facility] Respiratory rate 2024-04-25 14:47:00 18 /min [facility] Body height 2024-04-25 14:47:00 144.8 cm [facility] Body weight 2024-04-25 14:47:00 44.453 kg [facility] BMI 2024-04-25 14:47:00 21.21 kg/m2 [facility] Oxygen saturation in Arterial blood by Pulse oximetry 2024-04-25 14:47:00 93 /min [facility] Systolic blood pressure 2024-04-06 16:47:00 105 mm[Hg] [facility] Diastolic blood pressure 2024-04-06 16:47:00 62 mm[Hg] [facility] Heart rate 2024-04-06 16:47:00 79 /min [facility] Body temperature 2024-04-06 16:47:00 36.39 Maeve [facility] Respiratory rate 2024-04-06 16:47:00 20 /min [facility] Oxygen saturation in Arterial blood by Pulse oximetry 2024-04-06 16:47:00 99 /min [facility] Body height 2024-03-30 01:00:00 144.8 cm [facility] Body weight 2024-03-30 01:00:00 36 kg [facility] BMI 2024-03-30 01:00:00 17.17 kg/m2 [facility] Systolic blood pressure 2024-03-23 17:00:00 105 mm[Hg] [facility] Diastolic blood pressure 2024-03-23 17:00:00 80 mm[Hg] [facility] Heart rate 2024-03-23 17:00:00 96 /min [facility] Body temperature 2024-03-23 17:00:00 35.83 Maeve [facility] Respiratory rate 2024-03-23 17:00:00 22 /min [facility] Oxygen saturation in Arterial blood by Pulse oximetry 2024-03-23 17:00:00 93 /min [facility] Body weight 2024-03-23 01:00:00 51.5 kg [facility] BMI 2024-03-23 01:00:00 17.17 kg/m2 [facility] Body height 2024-03-22 00:27:00 144.8 cm [facility] Systolic blood pressure 2024-01-18 19:42:00 133 mm[Hg] [facility] Diastolic blood pressure 2024-01-18 19:42:00 83 mm[Hg] [facility] Heart rate 2024-01-18 19:42:00 99 /min [facility] Body temperature 2024-01-18 19:38:00 36.61 Maeve [facility] Respiratory rate 2024-01-18 19:38:00 20 /min [facility] Body weight 2024-01-18 19:38:00 41.731 kg [facility] BMI 2024-01-18 19:38:00 19.91 kg/m2 [facility] Oxygen saturation in Arterial blood by Pulse oximetry 2024-01-18 19:38:00 96 /min [facility] Systolic blood pressure 2024-01-06 22:27:00 140 mm[Hg] [facility] Diastolic blood pressure 2024-01-06 22:27:00 88 mm[Hg] [facility] Heart rate 2024-01-06 22:27:00 94 /min [facility] Body temperature 2024-01-06 22:27:00 35.5 Maeve [facility] Respiratory rate 2024-01-06 22:27:00 20 /min [facility] Oxygen saturation in Arterial blood by Pulse oximetry 2024-01-06 22:27:00 95 /min [facility] Body weight 2023-12-31 05:33:00 40.461 kg [facility] BMI 2023-12-31 05:33:00 19.30 kg/m2 [facility] Body height 2023-12-30 03:38:00 144.8 cm [facility] Systolic blood pressure 2023-11-29 20:56:00 126 mm[Hg] [facility] Diastolic blood pressure 2023-11-29 20:56:00 85 mm[Hg] [facility] Heart rate 2023-11-29 20:56:00 103 /min [facility] Body temperature 2023-11-29 20:56:00 36.78 Maeve [facility] Respiratory rate 2023-11-29 20:56:00 16 /min [facility] Oxygen saturation in Arterial blood by Pulse oximetry 2023-11-29 20:56:00 92 /min [facility] Body height 2023-11-25 06:44:00 144.8 cm from office visit 1.5.24 [facility] Body weight 2023-11-25 06:44:00 45.4 kg from office visit 1.5. [facility] BMI 2023-11-25 06:44:00 21.65 kg/m2 [facility] WEIGHT 2023-03-27 06:00:00 46.6 kg HEIGHT 2023-03-25 18:00:00 144.8 cm WEIGHT 2023-03-25 18:00:00 46.6 kg WEIGHT 2023-03-27 06:00:00 46.6 kg HEIGHT 2023-03-25 18:00:00 144.8 cm WEIGHT 2023-03-25 18:00:00 46.6 kg Systolic blood pressure 2021-04-03 20:29:00 147 mm[Hg] [facility] Diastolic blood pressure 2021-04-03 20:29:00 95 mm[Hg] [facility] Heart rate 2021-04-03 20:29:00 71 /min [facility] Body temperature 2021-04-03 20:29:00 37.11 Maeve [facility] Respiratory rate 2021-04-03 20:29:00 18 /min [facility] Oxygen saturation in Arterial blood by Pulse oximetry 2021-04-03 20:29:00 95 /min [facility] Body weight 2021-04-02 12:46:00 53.479 kg [facility] BMI 2021-04-02 12:46:00 25.51 kg/m2 [facility] Body height 2021-04-01 21:44:00 144.8 cm [facility] Systolic blood pressure 2024-01-04 18:02:00 127 mm[Hg] [facility] Diastolic blood pressure 2024-01-04 18:02:00 83 mm[Hg] [facility] Heart rate 2024-01-04 18:02:00 85 /min [facility] Body temperature 2024-01-04 18:02:00 36.33 Maeve [facility] Respiratory rate 2024-01-04 18:02:00 18 /min [facility] Oxygen saturation in Arterial blood by Pulse oximetry 2024-01-04 18:02:00 90 /min [facility] Body weight 2023-12-31 05:33:00 40.461 kg [facility] BMI 2023-12-31 05:33:00 19.30 kg/m2 [facility] Body height 2023-12-30 03:38:00 144.8 cm [facility] Temperature Oral (F) 2023-09-14 17:52:00 98.4 F [facility] Heart Rate 2023-09-14 17:52:00 [facility] Systolic (mm Hg) 2023-09-14 17:52:00 [facility] Diastolic (mm Hg) 2023-09-14 17:52:00 [facility] Height 2023-09-13 20:37:00 4 [ft_i] [facility] Weight 2023-09-13 20:37:00 [facility] Temperature Oral (F) 2023-09-12 09:49:28 97 F [facility] Height 2023-09-08 03:48:00 144.7 cm [facility] Weight 2023-09-08 03:48:00 [facility] BMI Calculated 2023-09-08 03:48:00 [facility] 2023-03-31 16:00:00 124 mm[Hg] [facility] Diastolic blood pressure 2023-03-31 16:00:00 73 mm[Hg] [facility] Heart rate 2023-03-31 16:00:00 125 /min [facility] Body temperature 2023-03-31 16:00:00 37.39 Maeve [facility] Respiratory rate 2023-03-31 16:00:00 18 /min [facility] Oxygen saturation in Arterial blood by Pulse oximetry 2023-03-31 16:00:00 94 /min [facility] Body height 2023-03-29 09:59:00 144.8 cm [facility] Body weight 2023-03-29 09:59:00 46.267 kg [facility] BMI 2023-03-29 09:59:00 22.07 kg/m2 [facility] Temperature Oral (F) 2018-01-05 23:00:00 97.4 F [facility] Systolic (mm Hg) 2018-01-05 23:00:00 [facility] Diastolic (mm Hg) 2018-01-05 23:00:00 [facility] Respitory Rate 2018-01-05 23:00:00 [facility] Systolic (mm Hg) 2018-01-05 22:00:00 [facility] Diastolic (mm Hg) 2018-01-05 22:00:00 [facility] Respitory Rate 2018-01-05 22:00:00 [facility] Systolic (mm Hg) 2018-01-05 21:00:00 [facility] Diastolic (mm Hg) 2018-01-05 21:00:00 [facility] Respitory Rate 2018-01-05 21:00:00 [facility] Temperature Oral (F) 2018-01-05 18:00:00 97.2 F [facility] Temperature Oral (F) 2018-01-05 14:00:00 97.5 F [facility] BMI Calculated 2018-01-03 08:37:00 [facility] Weight 2018-01-03 08:37:00 [facility] Height 2018-01-03 08:37:00 144.78 cm [facility] BMI Calculated 2018-01-03 07:14:00 [facility] Height 2018-01-03 07:14:00 144.78 cm [facility] Weight 2018-01-03 07:14:00 [facility] Procedures Procedure Date / Time Performed Performing Clinician Source TRANSTHORACIC ECHO (TTE) COMPLETE W/ CONTRAST 2025-05-21 21:09:58 Cristopher Raymundo [facility] POCT GLUCOSE (AUTOMATED) 2024-04-06 13:16:00 Tianna Lopez [facility] BASIC METABOLIC PANEL (NA, K, CL, CO2, GLUCOSE, BUN, CREATININE, CA) 2024-04-06 11:00:00 Margarita Cooper [facility] CBC WITHOUT DIFF 2024-04-06 11:00:00 Margarita Jackman [facility] PHOSPHORUS 2024-04-06 11:00:00 Margarita Cooper [facility] MAGNESIUM 2024-04-06 11:00:00 Margarita Cooper [facility] POCT GLUCOSE (AUTOMATED) 2024-04-05 20:24:00 Tianna Lopez [facility] POCT GLUCOSE (AUTOMATED) 2024-04-05 16:21:00 Tianna Lopez [facility] POCT GLUCOSE (AUTOMATED) 2024-04-05 13:05:00 Tianna Lopez [facility] BASIC METABOLIC PANEL (NA, K, CL, CO2, GLUCOSE, BUN, CREATININE, CA) 2024-04-05 08:42:00 Margarita Cooper [facility] CBC WITHOUT DIFF 2024-04-05 08:42:00 Margarita Jackman [facility] PHOSPHORUS 2024-04-05 08:42:00 Margarita Cooper [facility] MAGNESIUM 2024-04-05 08:42:00 Margarita Cooper [facility] POCT GLUCOSE (AUTOMATED) 2024-04-04 21:56:00 Tianna Lopez [facility] BASIC METABOLIC PANEL (NA, K, CL, CO2, GLUCOSE, BUN, CREATININE, CA) 2024-04-04 16:57:00 Margarita Cooper [facility] MAGNESIUM 2024-04-04 16:57:00 Justin Babcock [facility] POCT GLUCOSE (AUTOMATED) 2024-04-04 16:30:00 Tianna Lopez [facility] POCT GLUCOSE (AUTOMATED) 2024-04-04 12:57:00 Tianna Lopez [facility] POCT GLUCOSE (AUTOMATED) 2024-04-03 16:56:00 Tianna Lopez [facility] POCT GLUCOSE (AUTOMATED) 2024-04-03 13:32:00 Tianna Lopez [facility] POCT GLUCOSE (AUTOMATED) 2024-04-02 20:14:00 [facility] POCT GLUCOSE (AUTOMATED) 2024-04-02 16:31:00 [facility] POCT GLUCOSE (AUTOMATED) 2024-04-02 14:24:00 Tianna Lopez [facility] POCT GLUCOSE (AUTOMATED) 2024-04-02 13:07:00 [facility] BASIC METABOLIC PANEL (NA, K, CL, CO2, GLUCOSE, BUN, CREATININE, CA) 2024-04-02 07:49:00 Margarita Cooper [facility] CBC WITHOUT DIFF 2024-04-02 07:49:00 Margarita Jackman [facility] PHOSPHORUS 2024-04-02 07:49:00 Margarita Cooper [facility] MAGNESIUM 2024-04-02 07:49:00 Margarita Cooper [facility] XR CHEST 1 VW 2024-04-02 01:10:00 Trista Alvarado [facility] XR CHEST 1 VW 2024-04-01 12:06:00 [facility] (NA, K, CL, CO2, GLUCOSE, BUN, CREATININE, CA) 2024-04-01 09:12:00 Margarita Cooper [facility] CBC WITHOUT DIFF 2024-04-01 09:12:00 Margarita Jackman [facility] PHOSPHORUS 2024-04-01 09:12:00 Margarita Cooper [facility] MAGNESIUM 2024-04-01 09:12:00 Margarita Cooper [facility] XR CHEST 1 VW 2024-03-31 14:26:00 Giuseppe Oneil [facility] BASIC METABOLIC PANEL (NA, K, CL, CO2, GLUCOSE, BUN, CREATININE, CA) 2024-03-31 09:03:00 Desmond Babcock [facility] CBC WITH DIFF 2024-03-31 09:03:00 Justin Babcock [facility] MAGNESIUM 2024-03-31 09:03:00 Justin Babcock [facility] POCT GLUCOSE (AUTOMATED) 2024-03-30 22:24:00 Tianna Lopez [facility] BASIC METABOLIC PANEL (NA, K, CL, CO2, GLUCOSE, BUN, CREATININE, CA) 2024-03-30 14:18:00 Enid Morgan [facility] XR CHEST 1 VW 2024-03-30 13:31:00 Enid Morgan Bulmaro [facility] CBC WITH DIFF 2024-03-30 05:24:00 Enid Morgan [facility] MAGNESIUM 2024-03-30 05:23:00 Carolynn Gamez [facility] BASIC METABOLIC PANEL (NA, K, CL, CO2, GLUCOSE, BUN, CREATININE, CA) 2024-03-30 05:23:00 Carolynn Gamez [facility] XR CHEST 1 VW 2024-03-29 22:08:00 [facility] 2024-03-29 10:55:00 Alicia Pérezesha [facility] BASIC METABOLIC PANEL (NA, K, CL, CO2, GLUCOSE, BUN, CREATININE, CA) 2024-03-29 10:55:00 [facility] 2024-03-29 08:29:00 Carolynn Gamez [facility] XR KUB 2024-03-28 17:08:00 Gia [facility] [facility]LO[facility] CULT[facility] WORKUP 2024-03-28 16:23:00 Kaleigh [facility] BLOOD CULTURE SCREEN 2024-03-28 16:23:00 [facility] 2024-03-28 10:11:00 Vernon Brito [facility] MAGNESIUM 2024-03-28 10:11:00 Gia Adames [facility] BASIC METABOLIC PANEL (NA, K, CL, CO2, GLUCOSE, BUN, CREATININE, CA) 2024-03-28 10:11:00 Gia Adames [facility] XR CHEST 1 2024-03-28 09:01:03 Talisha [facility] ACUTE CARE ARTERIAL BLOOD GAS 2024-03-28 02:12:00 Vera [facility] XR CHEST 1 2024-03-28 00:48:00 Carolynn Gamez [facility] CT STROKE ANGIOGRAM HEAD 2024-03-28 00:09:00 Ana Rojas [facility] CT STROKE ANGIOGRAM NECK 2024-03-28 00:09:00 [place] [facility] CT STROKE PERFUSION W CONTRAST 2024-03-28 00:08:00 [facility] WO CONTRAST 2024-03-27 23:50:00 [facility] CBC WITHOUT DIFF 2024-03-27 23:29:00 Feli [facility] PROTHROMBIN TIME / INR 2024-03-27 23:29:00 [facility] ACTIVATED PARTIAL THRMPLAS HERRERA 2024-03-27 23:29:00 [facility] TROPONIN I 2024-03-27 23:29:00 Vj Schwab [facility] BASIC METABOLIC PANEL (NA, K, CL, CO2, GLUCOSE, BUN, CREATININE, CA) 2024-03-27 23:29:00 [facility] POCT GLUCOSE (AUTOMATED) 2024-03-27 23:28:00 Vj Jimenez pawan [facility] AC PANEL 20 + LACTIC ACID 2024-03-27 22:28:00 Feli Cortez [facility] POCT GLUCOSE (AUTOMATED) 2024-03-27 22:07:00 Maura Pérez [facility] MAGNESIUM 2024-03-27 22:00:00 Dayanara Cortez [facility] HEPATIC FUNCTION PANEL (35474) (ALB,T.PRO,BILI T,BU/BC,ALT,AST,ALK PHOS) 2024-03-27 22:00:00 Dayanara Cortez [facility] BASIC METABOLIC PANEL (NA, K, CL, CO2, GLUCOSE, BUN, CREATININE, CA) 2024-03-27 22:00:00 Vernon Brito [facility] XR CHEST 1 VW 2024-03-27 18:28:00 Vernon Brito [facility] XR CHEST 1 VW 2024-03-27 17:27:26 Juan Francisco Carrizales [facility] BASIC METABOLIC PANEL (NA, K, CL, CO2, GLUCOSE, BUN, CREATININE, CA) 2024-03-27 17:21:00 Dayanara Cortez [facility] XR CHEST 1 VW 2024-03-27 15:43:00 Juan Francisco Carrizales [facility] CBC WITH DIFF 2024-03-27 09:28:00 Vernon Brito [facility] N-TERMINAL PRO-BNP 2024-03-27 09:28:00 Kacie Stewart [facility] MAGNESIUM 2024-03-27 09:28:00 Vernon Brito [facility] BASIC METABOLIC PANEL (NA, K, CL, CO2, GLUCOSE, BUN, CREATININE, CA) 2024-03-27 09:28:00 Isma Britosteph [facility] POCT GLUCOSE (AUTOMATED) 2024-03-27 00:06:00 Pérez, Fat gisela A [facility] POCT GLUCOSE (AUTOMATED) 2024-03-27 00:06:00 Pérez, Fat gisela A [facility] POCT GLUCOSE (AUTOMATED) 2024-03-26 23:18:00 Pérez, Fat gisela A [facility] POCT GLUCOSE (AUTOMATED) 2024-03-26 23:18:00 Pérez, Fat gisela A [facility] POTASSIUM SERUM 2024-03-26 23:17:00 Rosendo Valdovinos [facility] POTASSIUM SERUM 2024-03-26 23:17:00 Rosendo Valdovinos [facility] POCT GLUCOSE (AUTOMATED) 2024-03-26 21:39:00 Pérez, Fat gisela A [facility] POCT GLUCOSE (AUTOMATED) 2024-03-26 21:39:00 Pérez, Fat gisela A [facility] BASIC METABOLIC PANEL (NA, K, CL, CO2, GLUCOSE, BUN, CREATININE, CA) 2024-03-26 20:24:00 Enid Valdovinos [facility] BASIC METABOLIC PANEL (NA, K, CL, CO2, GLUCOSE, BUN, CREATININE, CA) 2024-03-26 20:24:00 Enid Valdovinos [facility] HB ECG ROUTINE & RHYTHM STRIP 2024-03-26 20:08:28 Enid Valdovinos [facility] DIGOXIN 2024-03-26 18:24:00 Ayo [facility] CBC WITH DIFF 2024-03-26 18:24:00 Ayo [facility] N-TERMINAL PRO-BNP 2024-03-26 18:24:00 Kacie Stewart [facility] MAGNESIUM 2024-03-26 18:24:00 Ayo [facility] BASIC METABOLIC PANEL (NA, K, CL, CO2, GLUCOSE, BUN, CREATININE, CA) 2024-03-26 18:24:00 Ayo [facility] DIGOXIN 2024-03-26 18:24:00 Ayo [facility] CBC WITH DIFF 2024-03-26 18:24:00 Ayo [facility] N-TERMINAL PRO-BNP 2024-03-26 18:24:00 [facility] MAGN[facility]IUM 2024-03-26 18:24:00 Ayo [facility] BASIC METABOLIC PANEL (NA, K, CL, CO2, GLUCOSE, BUN, CREATININE, CA) 2024-03-26 18:24:00 Ayo [facility] EKG-12 LEAD 2024-03-25 20:03:06 Juany [facility]rez [facility] HB ECG ROUTINE & RHYTHM STRIP 2024-03-25 20:02:30 Ayo [facility] COMP. METABOLIC PANEL (57266) 2024-03-25 16:18:00 Terry [facility] PHOSPHORUS 2024-03-25 16:18:00 Kacie Stewart [facility] MAGNESIUM 2024-03-25 16:18:00 Kacie Stewart [facility] COMP. METABOLIC PANEL ([id number]) 2024-03-25 16:18:00 Terry [facility] PHOSPHORUS 2024-03-25 16:18:00 Terry Kacie [facility] MAGNESIUM 2024-03-25 16:18:00 Kacie Stewart [facility] CBC WITH DIFF 2024-03-25 10:15:00 Stewart, [facility] N-TERMINAL PRO-BNP 2024-03-25 10:15:00 Kacie Stewart [facility] CBC WITH DIFF 2024-03-25 10:15:00 Stewart, [facility] N-TERMINAL PRO-BNP 2024-03-25 10:15:00 Kacie Stewart [facility] POCT GLUCOSE (AUTOMATED) 2024-03-24 17:20:00 Justin Garay [facility] POCT GLUCOSE (AUTOMATED) 2024-03-24 17:20:00 Justin Garay [facility] DIGOXIN 2024-03-24 17:12:00 Terry [facility] MAGNESIUM 2024-03-24 17:12:00 StewartKacie monterroso [facility] BASIC METABOLIC PANEL (NA, K, CL, CO2, GLUCOSE, BUN, CREATININE, CA) 2024-03-24 17:12:00 Terry [facility] DIGOXIN 2024-03-24 17:12:00 Stewart, Kacie [facility] MAGNESIUM 2024-03-24 17:12:00 Terry [facility] BASIC METABOLIC PANEL (NA, K, CL, CO2, GLUCOSE, BUN, CREATININE, CA) 2024-03-24 17:12:00 Terry [facility] XR CHEST 1 VW 2024-03-24 14:09:00 Terry [facility] XR CHEST 1 VW 2024-03-24 14:09:00 Terry [facility] POCT GLUCOSE (AUTOMATED) 2024-03-24 12:50:00 Justin Garay [facility] POCT GLUCOSE (AUTOMATED) 2024-03-24 12:50:00 Justin Garay [facility] LACTIC ACID WHOLE BLOOD 2024-03-24 07:03:00 Carol Simpson [facility] LACTIC ACID WHOLE BLOOD 2024-03-24 07:03:00 Carol Simpson [facility] CBC WITH DIFF 2024-03-24 07:02:00 Carol Simpson [facility] N-TERMINAL PRO-BNP 2024-03-24 07:02:00 Kacie Stewart [facility] MAGNESIUM 2024-03-24 07:02:00 Carol Simpson [facility] BASIC METABOLIC PANEL (NA, K, CL, CO2, GLUCOSE, BUN, CREATININE, CA) 2024-03-24 07:02:00 Carol Simpson [facility] CBC WITH DIFF 2024-03-24 07:02:00 Carol [facility] N-TERMINAL PRO-BNP 2024-03-24 07:02:00 Kacie Stewart [facility] MAGNESIUM 2024-03-24 07:02:00 Carol Simpson [facility] BASIC METABOLIC PANEL (NA, K, CL, CO2, GLUCOSE, BUN, CREATININE, CA) 2024-03-24 07:02:00 Carol Simpson [facility] EKG-12 LEAD 2024-03-24 06:59:31 Suleiman Willis [facility] POCT GLUCOSE (AUTOMATED) 2024-03-23 22:46:00 Justin Garay [facility] POCT GLUCOSE (AUTOMATED) 2024-03-23 22:46:00 Justin Garay [facility] ACTIVATED PARTIAL THRMPLAS HERRERA 2024-03-23 21:52:00 Kacie Stewart [facility] ACTIVATED PARTIAL THRMPLAS HERRERA 2024-03-23 21:52:00 Kacie Stewart [facility] CT ANGIOGRAM HEAD 2024-03-23 20:53:00 Kacie Stewart [facility] CT HEAD WO CONTRAST 2024-03-23 20:53:00 Kacie Stewart [facility] CT ANGIOGRAM NECK 2024-03-23 20:53:00 [facility] 2024-03-23 20:53:00 Kacie Stewart [facility] CT HEAD WO CONTRAST 2024-03-23 20:53:00 Kacie Stewart [facility] CT ANGIOGRAM NECK 2024-03-23 20:53:00 Kacie Stewart [facility] CATH PROCEDURE LOG 2024-03-23 19:14:32 Alba [facility] CATH PROCEDURE LOG 2024-03-23 19:14:32 Alba [facility] CARDIAC CATHETERIZATION 2024-03-23 18:54:47 Jose A edmond [facility] CARDIAC CATHETERIZATION 2024-03-23 18:54:47 Jose A edmond [facility] POCT GLUCOSE (AUTOMATED) 2024-03-23 17:03:00 Justin Garay [facility] POCT GLUCOSE (AUTOMATED) 2024-03-23 [facility]:03[facility] 2024-03-23 16:17:00 Eddy Stewart [facility] LACTIC ACID WHOLE BLOOD 2024-03-23 16:17:00 Eddy Stewart [facility] HB ECG ROUTINE & RHYTHM STRIP 2024-03-23 15:27:23 Kacie Stewart [facility] HB ECG ROUTINE & RHYTHM STRIP 2024-03-23 15:27:23 Kacie Stewart [facility] POCT GLUCOSE (AUTOMATED) 2024-03-23 14:16:00 Justin Garay [facility] POCT GLUCOSE (AUTOMATED) 2024-03-23 14:16:00 Justin Garay [facility] XR CHEST 1 VW 2024-03-23 08:17:00 Britt Lopez [facility] XR CHEST 1 VW 2024-03-23 08:17:00 Britt Lopez [facility] LIPID PANEL ([id number])(TOTAL CHOLESTEROL, TRIGLYCERIDES, HDL) 2024-03-23 08:14:00 [facility] WITHOUT DIFF 2024-03-23 08:14:00 Damian Hartley [facility] N-TERMINAL PRO-BNP 2024-03-23 08:14:00 [facility] VITAM[facility] D, 25-[place] 2024-03-23 08:14:00 Damian Hartley [facility] MAGNESIUM 2024-03-23 08:14:00 Odilia Damian [facility] TROPONIN I 2024-03-23 08:14:00 Odilia Nexus [facility] BASIC METABOLIC PANEL (NA, K, CL, CO2, GLUCOSE, BUN, CREATININE, CA) 2024-03-23 08:14:00 [facility] LIPID PANEL ([id number])(TOTAL CHOLESTEROL, TRIGLYCERIDES, HDL) 2024-03-23 08:14:00 [facility] WITHOUT DIFF 2024-03-23 08:14:00 Damian Hartley [facility] N-TERMINAL PRO-BNP 2024-03-23 08:14:[facility], 25-[place] 2024-03-23 08:14:00 Damian Hartley [facility] MAGNESIUM 2024-03-23 08:14:00 Damian [facility] TROPONIN I 2024-03-23 08:14:00 Odilia Damian [facility] BASIC METABOLIC PANEL (NA, K, CL, CO2, GLUCOSE, BUN, CREATININE, CA) 2024-03-23 08:14:00 Odilia [facility] HB ECG ROUTINE & RHYTHM STRIP 2024-03-23 05:11:23 [facility] HB ECG ROUTINE & RHYTHM STRIP 2024-03-23 05:11:23 [facility] TROPONIN I 2024-03-22 20:17:00 Odilia [facility] TROPONIN I 2024-03-22 20:17:00 Odilia [facility] XR CHEST 1 2024-03-22 19:35:00 Garcia [facility] XR CHEST 1 2024-03-22 19:35:00 Natasha [facility] LOWER EXTREMITY ARTERIAL DUPLEX BILATERAL - BY VASCULAR LAB 2024-03-22 17:27:09 Odilia [facility] LOWER EXTREMITY ARTERIAL DUPLEX BILATERAL - BY VASCULAR LAB 2024-03-22 17:27:09 Odilia [facility] DUPLEX VENOUS LEGS BILATERAL - BY VASCULAR LAB 2024-03-22 17:09:16 Odilia [facility] DUPLEX VENOUS LEGS BILATERAL - BY VASCULAR LAB 2024-03-22 17:09:16 Odilia [facility] XR CHEST 1 2024-03-22 15:56:29 Alexsander [facility] XR CHEST 1 2024-03-22 15:56:29 Alexsander [facility] TRANSTHORACIC ECHO (TTE) COMPLETE W/ CONTRAST 2024-03-22 14:12:00 Alexsander [facility] TRANSTHORACIC ECHO (TTE) COMPLETE W/ CONTRAST 2024-03-22 14:12:00 Alexsander [facility] POCT GLUCOSE (AUTOMATED) 2024-03-22 11:49:00 Justin Garay [facility] POCT GLUCOSE (AUTOMATED) 2024-03-22 11:49:00 Justin Garay [facility] MAGNESIUM 2024-03-22 11:47:00 [facility]-22 11:47:00 [facility]ander [facility] THYROID STIMULATING HORMONE 2024-03-22 11:47:00 Alexsander [facility] BASIC METABOLIC PANEL (NA, K, CL, CO2, GLUCOSE, BUN, CREATININE, CA) 2024-03-22 11:47:00 Ana Pérez [facility] MAGNESIUM 2024-03-22 11:47:00 Damian Hartley [facility] TROPONIN I 2024-03-22 11:47:00 Elton Beltrealana [facility] THYROID STIMULATING HORMONE 2024-03-22 11:47:00 [facility] BAS[facility]OLIC PANEL (NA, K, CL, CO2, GLUCOSE, BUN, CREATININE, CA) 2024-03-22 11:47:00 Ana Pérez [facility] COMP. METABOLIC PANEL ([id number]) 2024-03-22 02:22:00 Ana Pérez [facility] CBC WITH DIFF 2024-03-22 02:22:00 [facility] 2024-03-22 02:22:00 Ana Pérez [facility] MAGNESIUM 2024-03-22 02:22:00 [facility] TROPON[facility] 2024-03-22 02:22:00 Ana Pérez [facility] COMP. METABOLIC PANEL ([id number]) 2024-03-22 02:22:00 Ana Pérez [facility] CBC WITH DIFF 2024-03-22 02:22:00 [facility] N-[facility]MIN[facility]-BNP 2024-03-22 02:22:00 Aan Pérez [facility] MAGNESIUM 2024-03-22 02:22:00 [facility] TROPONIN I 2024-03-22 02:22:00 Ana Pérez [facility] MRSA / MSSA SCREEN BY PCRHANNAH 2024-03-22 01:00:00 Desmond Garay [facility] MRSA / MSSA SCREEN BY PCRHANNAH 2024-03-22 01:00:00 Desmond Garay [facility] HB ECG ROUTINE & RHYTHM STRIP 2024-03-22 00:04:48 Desmond Garay [facility] HB ECG ROUTINE & RHYTHM STRIP 2024-03-22 00:04:48 Desmond Garay [facility] ASSIGNMENT OF BENEFITS 2024-01-18 19:18:14 Docto r Unassigned, [place] [facility] MAGNESIUM 2024-01-06 11:15:00 Luz Elena [facility]hart [facility] BASIC METABOLIC PANEL (NA, K, CL, CO2, GLUCOSE, BUN, CREATININE, CA) 2024-01-06 11:15:00 Luz Elena Barnhart [facility] CBC WITH DIFF 2024-01-06 11:15:00 Luz Elena Barnhart [facility] XR CHEST 1 2024-01-06 10:14:00 Héctor Wallace [facility] XR CHEST 1 2024-01-05 20:06:26 Carol Juarez [facility] MAGNESIUM 2024-01-05 10:14:00 Luz Elena [facility]hart [facility] BASIC METABOLIC PANEL (NA, K, CL, CO2, GLUCOSE, BUN, CREATININE, CA) 2024-01-05 10:14:00 Luz Elena Barnhart [facility] CBC WITH DIFF 2024-01-05 10:14:00 Luz Elena Barnhart [facility] XR CHEST 1 2024-01-05 09:55:00 [facility] 2024-01-04 10:34:00 Luz Elena Barnhart [facility] BASIC METABOLIC PANEL (NA, K, CL, CO2, GLUCOSE, BUN, CREATININE, CA) 2024-01-04 10:34:00 Luz Elena Barnhart [facility] MAGNESIUM 2024-01-04 10:34:00 [facility]z [facility] 2024-01-04 10:34:00 Luz Elena Barnhart [facility] BASIC METABOLIC PANEL (NA, K, CL, CO2, GLUCOSE, BUN, CREATININE, CA) 2024-01-04 10:34:00 Luz Elena Barnhart [facility] CBC WITH DIFF 2024-01-04 10:34:00 Luz Elena Barnhart [facility] XR CHEST 1 VW 2024-01-04 09:38:00 [facility] CONTRAST 2024-01-03 18:18:31 Angela [facility] CT THORAX W CONTRAST 2024-01-03 18:18:31 Angela [facility] XR CHEST 1 VW 2024-01-03 12:54:00 Carol Juarez [facility] XR CHEST 1 VW 2024-01-03 12:54:00 Carol Juarez [facility] MAGNESIUM 2024-01-03 10:45:00 Luz Elena Barnhart [facility] CBC WITH DIFF 2024-01-03 10:45:00 Luz Elena Barnhart [facility] BASIC METABOLIC PANEL (NA, K, CL, CO2, GLUCOSE, BUN, CREATININE, CA) 2024-01-03 10:45:00 Luz Elena Barnhart [facility] MAGNESIUM 2024-01-03 10:45:00 Luz Elena Barnhart [facility] BASIC METABOLIC PANEL (NA, K, CL, CO2, GLUCOSE, BUN, CREATININE, CA) 2024-01-03 10:45:00 Luz Elena Barnhart [facility] CBC WITH DIFF 2024-01-03 10:45:00 Luz Elena Barnhart [facility] XR CHEST 1 VW 2024-01-03 10:23:00 Héctor Wallace [facility] XR CHEST 1 VW 2024-01-03 10:23:00 Rodrigo Galisteo [facility] XR CHEST 1 VW 2024-01-03 00:22:00 Martha Mcguire [facility] XR CHEST 1 VW 2024-01-03 00:22:00 Martha Mc[facility] IR PLEURAL DRAINAGE WITH TUBE WITH IMAGING 2024-01-02 23:05:00 EliasCj Cabreraaltaf Carolleann Quispe [facility] IR PLEURAL DRAINAGE WITH TUBE WITH IMAGING 2024-01-02 23:05:00 Elias Dlefina, Carolleann Quispe [facility] XR CHEST 1 VW 2024-01-02 20:45:00 Elias Justin newwendy Carolleann Quispe [facility] XR CHEST 1 VW 2024-01-02 20:45:00 Elias Justin natalya Carolleann Quispe [facility] BASIC METABOLIC PANEL (NA, K, CL, CO2, GLUCOSE, BUN, CREATININE, CA) 2024-01-02 19:33:00 lEiasCarol Floyd [facility] BASIC METABOLIC PANEL (NA, K, CL, CO2, GLUCOSE, BUN, CREATININE, CA) 2024-01-02 19:33:00 EliasCarol Floyd [facility] PROTHROMBIN TIME / INR 2024-01-02 19:30:00 de Fr ibarrabrooks DelfinaCarol solitario [facility] PROTHROMBIN TIME / INR 2024-01-02 19:30:00 de staceyCarol Schaefer [facility] XR CHEST 1 VW 2024-01-02 15:33:00 Elias Justin Carol hoang [facility] XR CHEST 1 VW 2024-01-02 15:33:00 EliasCarol Ann [facility] POCT GLUCOSE (AUTOMATED) 2024-01-02 14:02:00 Machelle Wilson [facility] POCT GLUCOSE (AUTOMATED) 2024-01-02 14:02:00 Machelle Wilson [facility] BASIC METABOLIC PANEL (NA, K, CL, CO2, GLUCOSE, BUN, CREATININE, CA) 2024-01-02 09:03:00 Kahlil Miller [facility] CBC WITH DIFF 2024-01-02 09:03:00 Kahlil Miller [facility] MAGNESIUM 2024-01-02 09:03:00 Angela, Kahlil [facility] MAGNESIUM 2024-01-02 09:03:00 [facility] (NA, K, CL, CO2, GLUCOSE, BUN, CREATININE, CA) 2024-01-02 09:03:00 Angela [facility] CBC WITH DIFF 2024-01-02 09:03:00 [facility] 2024-01-01 15:36:00 Thad Giuseppe [facility] XR CHEST 1 2024-01-01 15:36:00 Elder, [facility] XR CHEST 1 2024-01-01 12:09:00 [facility] 2024-01-01 12:09:00 Juarez [facility] BASIC METABOLIC PANEL (NA, K, CL, CO2, GLUCOSE, BUN, CREATININE, CA) 2024-01-01 10:41:00 Angela [facility] CBC WITH DIFF 2024-01-01 10:41:00 Angela Kahlil [facility] MAGNESIUM 2024-01-01 10:41:00 [facility] 2024-01-01 10:41:00 Angela [facility] BASIC METABOLIC PANEL (NA, K, CL, CO2, GLUCOSE, BUN, CREATININE, CA) 2024-01-01 10:41:00 Angela [facility] CBC WITH DIFF 2024-01-01 10:41:00 Angela [facility] BASIC METABOLIC PANEL (NA, K, CL, CO2, GLUCOSE, BUN, CREATININE, CA) 2023-12-31 11:55:00 Inder Resendiz [facility] CBC WITHOUT DIFF 2023-12-31 11:55:00 Inder Resendiz [facility] BASIC METABOLIC PANEL (NA, K, CL, CO2, GLUCOSE, BUN, CREATININE, CA) 2023-12-31 11:55:00 Inder Resendiz [facility] CBC WITHOUT DIFF 2023-12-31 11:55:00 [facility] 2023-12-31 10:28:00 Niall Shea [facility] CT THORAX WO CONTRAST 2023-12-31 00:00:00 Juan Carlos Jerry [facility] CT THORAX WO CONTRAST 2023-12-31 00:00:00 Juan Carlos Jerry [facility] TRANSTHORACIC ECHO (TTE) COMPLETE W/ CONTRAST 2023-12-30 15:56:55 Karen Verdugo [facility] TRANSTHORACIC ECHO (TTE) COMPLETE W/ CONTRAST 2023-12-30 15:56:55 Karen Verdugo [facility] XR CHEST 1 2023-12-30 15:06:26 [facility] 2023-12-30 15:06:26 Ryan Antonio Un [facility] CBC WITH DIFF 2023-12-30 11:09:00 SidRyan story Un [facility] MAGNESIUM 2023-12-30 11:09:00 SidRyan story [facility] BASIC METABOLIC PANEL (NA, K, CL, CO2, GLUCOSE, BUN, CREATININE, CA) 2023-12-30 11:09:00 Ryan Antonio [facility] MAGNESIUM 2023-12-30 11:09:00 SidRyan story [facility] BASIC METABOLIC PANEL (NA, K, CL, CO2, GLUCOSE, BUN, CREATININE, CA) 2023-12-30 11:09:00 SidRyan story [facility] CBC WITH DIFF 2023-12-30 11:09:00 [facility]AST 2023-12-30 10:08:47 SidRyan story [facility] CT THORAX WO CONTRAST 2023-12-30 10:08:47 SidRyan story [facility] BASIC METABOLIC PANEL (NA, K, CL, CO2, GLUCOSE, BUN, CREATININE, CA) 2023-12-30 06:41:00 JtRenny storyd [facility] MAGNESIUM 2023-12-30 06:41:00 [facility] 2023-12-30 06:41:00 [facility] BASIC MET[facility]OLIC PANEL (NA, K, CL, CO2, GLUCOSE, BUN, CREATININE, CA) 2023-12-30 06:41:00 Paco [facility] HB ECG ROUTINE & RHYTHM STRIP 2023-12-30 05:07:[address] [facility] HB ECG ROUTINE & RHYTHM STRIP 2023-12-30 05:07:[address] [facility] XR CHEST 1 2023-12-30 04:36:00 Regino [facility] XR CHEST 1 2023-12-30 04:36:00 Regino [facility] MRSA / MSSA SCREEN BY PCR, [facility] 2023-12-30 04:19:00 Paco [facility] MRSA / MSSA SCREEN BY PCR, [facility] 2023-12-30 04:19:00 [facility] EXTERNAL PROVIDER RECORDS 2023-12-02 06:01:00 Do ctor Unassigned, [place] [facility] PHOSPHORUS 2023-11-29 09:55:00 [facility] MAGNESIUM 2023-11-29 09:55:00 [facility] BASIC METABOLIC PANEL (NA, K, CL, CO2, GLUCOSE, BUN, CREATININE, CA) 2023-11-29 09:55:00 Nat Lopez [facility] CBC WITH DIFF 2023-11-29 09:55:00 Nat Lopez [facility] PHOSPHORUS 2023-11-29 09:55:00 Nat Lopez [facility] MAGNESIUM 2023-11-29 09:55:00 Nat Lopez [facility] CBC WITH DIFF 2023-11-29 09:55:00 [facility] BASIC METABOLIC PANEL (NA, K, CL, CO2, GLUCOSE, BUN, CREATININE, CA) 2023-11-29 09:55:00 Nat Lopez [facility] XR CHEST 1 VW 2023-11-28 10:44:00 Enid Morgan [facility] XR CHEST 1 VW 2023-11-28 10:44:00 Enid Morgan [facility] MAGNESIUM 2023-11-28 08:22:00 [facility] PANEL (NA, K, CL, CO2, GLUCOSE, BUN, CREATININE, CA) 2023-11-28 08:22:00 Enid Morgan [facility] CBC WITH DIFF 2023-11-28 08:22:00 Enid Morgan [facility] BASIC METABOLIC PANEL (NA, K, CL, CO2, GLUCOSE, BUN, CREATININE, CA) 2023-11-28 08:22:00 Enid Morgan [facility] MAGNESIUM 2023-11-28 08:22:00 [facility] 2023-11-28 08:22:00 Enid Morgan [facility] XR CHEST 1 VW 2023-11-28 00:41:20 Bobby Pham nt [facility] XR CHEST 1 VW 2023-11-28 00:41:20 Bobby Pham nt [facility] MAGNESIUM 2023-11-27 11:18:00 Enid Morgan [facility] BASIC METABOLIC PANEL (NA, K, CL, CO2, GLUCOSE, BUN, CREATININE, CA) 2023-11-27 11:18:00 Enid Morgan [facility] CBC WITH DIFF 2023-11-27 11:18:00 Enid Morgan [facility] BASIC METABOLIC PANEL (NA, K, CL, CO2, GLUCOSE, BUN, CREATININE, CA) 2023-11-27 11:18:00 Enid Morgan [facility] MAGNESIUM 2023-11-27 11:18:00 Enid Morgan [facility] CBC WITH DIFF 2023-11-27 11:18:00 Enid Morgan [facility] XR CHEST 1 VW 2023-11-27 10:38:00 Bobby Pham nt [facility] XR CHEST 1 VW 2023-11-27 10:38:00 Bobby Pham nt [facility] XR CHEST 1 VW 2023-11-27 00:26:16 Bobby Pham nt [facility] XR CHEST 1 VW 2023-11-27 00:26:16 Bobby Pham nt [facility] XR CHEST 1 VW 2023-11-26 19:26:49 [facility] 2023-11-26 19:26:49 [facility] 2023-11-26 11:24:00 Enid Morgan [facility] BASIC METABOLIC PANEL (NA, K, CL, CO2, GLUCOSE, BUN, CREATININE, CA) 2023-11-26 11:24:00 Enid Morgan [facility] CBC WITH DIFF 2023-11-26 11:24:00 Enid Morgan [facility] BASIC METABOLIC PANEL (NA, K, CL, CO2, GLUCOSE, BUN, CREATININE, CA) 2023-11-26 11:24:00 Enid Morgan [facility] MAGNESIUM 2023-11-26 11:24:00 [facility]FF 2023-11-26 11:24:00 Enid Morgan [facility] XR CHEST 1 VW 2023-11-26 10:30:00 Armond Shell [facility] XR CHEST 1 VW 2023-11-26 10:30:00 Armond Shell [facility] XR CHEST 1 VW 2023-11-25 15:09:00 Megha Mchugh [facility] XR CHEST 1 2023-11-25 15:09:00 [facility] MAGNESIUM 2023-11-25 10:28:00 Megha Mchugh [facility] TROPONIN I 2023-11-25 10:28:00 Megha Mchugh [facility] BASIC METABOLIC PANEL (NA, K, CL, CO2, GLUCOSE, BUN, CREATININE, CA) 2023-11-25 10:28:00 Megha Mchugh [facility] BASIC METABOLIC PANEL (NA, K, CL, CO2, GLUCOSE, BUN, CREATININE, CA) 2023-11-25 10:28:00 Megha Mchugh [facility] MAGNESIUM 2023-11-25 10:28:00 Megha Mchugh [facility] TROPONIN I 2023-11-25 10:28:00 Megha Mchugh [facility] CBC WITH DIFF 2023-11-25 10:27:00 Megha Mchugh [facility] CBC WITH DIFF 2023-11-25 10:27:00 Megha Mchugh [facility] HB ECG ROUTINE & RHYTHM STRIP 2023-11-25 10:13:00 [facility] & RHYTHM STRIP 2023-11-25 10:13:00 Megha Mchugh [facility] CT CHEST PULMONARY ANGIOGRAM 2023-11-25 08:45:29 [facility]ULMON[facility]GIOGRAM 2023-11-25 08:45:29 Megha Mchugh [facility] XR CHEST 1 2023-11-25 08:45:22 [facility] XR CHEST 1 2023-11-25 08:45:22 [facility] XR CHEST 1 2023-11-25 08:45:16 [facility] XR CHEST 1 2023-11-25 08:45:16 Megha Mchugh [facility] XR CHEST 1 2023-11-25 07:20:00 Megha Mchugh [facility] XR CHEST 1 2023-11-25 07:20:00 Megha Mchugh [facility] HOSPITAL ADMISSION 2023-11-25 06:01:00 Doctor Un assigned, [place] [facility] HOSPITAL ADMISSION 2023-11-25 06:01:00 Doctor Un assigned, [place] [facility] - OTHER 2023-11-15 06:01:00 Doctor U nassigned, [place] [facility] 2023-11-15 06:01:00 Doctor U robertoed, [place] [facility] REFERRAL- REQUEST/RESPONSE 2023-10-26 06:01:00 Doctor Unassigned, [place] [facility] REFERRAL- REQUEST/RESPONSE 2023-10-26 06:01:00 Doctor Unassigned, [place] [facility] Closed treatment of distal radial fracture (eg, Colles or Bradley type) or epiphyseal separation, includes closed treatment of fracture of ulnar styloid, when performed; without manipulation 2023-09-13 19:00:00 [facility] POCT-GLUCOSE METER 2023-03-31 17:47:00 Shemar, Patricio [facility] POCT-GLUCOSE METER 2023-03-31 12:24:00 Shemar, Patricio [facility] CBC (HEMOGRAM ONLY) 2023-03-31 05:11:00 Kriss Cadena [facility] BASIC METABOLIC PANEL 2023-03-31 05:11:00 Hermes Cadena [facility] POCT-GLUCOSE METER 2023-03-30 21:36:00 Shemar, Patricio [facility] PROCEDURE, IN NON-OPERATING ROOM SETTING 2023-03-30 21:30:00 Surgeon Jeremie [facility] POCT-GLUCOSE METER 2023-03-30 17:52:00 Shemar, Patricio [facility] MRA HEAD WITHOUT IV CONTRAST 2023-03-30 12:25:[address] Da[address] [facility] MRA NECK WITHOUT IV CONTRAST 2023-03-30 12:25:[address]i [facility] MR BRAIN WITH & WITHOUT IV CONTRAST 2023-03-30 12:25:[address] Da[address] [facility] POCT-GLUCOSE METER 2023-03-30 06:12:00 DaouniguntCarmen hooper [facility] (HEMOGRAM ONLY) 2023-03-30 04:40:00 CivuniguntKriss hooper allyssadra [facility] BASIC METABOLIC PANEL 2023-03-30 04:40:00 [facility]SE [facility] 2023-03-29 23:59:00 Civ[facility]igunta [facility] POCT-GLUCOSE METER 2023-03-29 16:13:00 Civunigunta [facility] POCT-GLUCOSE METER 2023-03-29 12:41:00 Civunigunta, [facility] POCT-GLUCOSE METER 2023-03-29 07:40:00 Civunigunta, Na [facility] CBC (HEMOGRAM ONLY) 2023-03-29 04:39:00 CivuniguntaKriss arendra [facility] BASIC METABOLIC PANEL 2023-03-29 04:39:00 Civunigunta Hermes [facility] POCT-GLUCOSE METER 2023-03-28 20:45:00 Civunigunta, [facility] POCT-GLUCOSE METER 2023-03-28 17:54:00 Civunigunta, Na rendra [facility] POCT-GLUCOSE METER 2023-03-28 12:38:00 Civunigunta, Na [facility] POCT-GLUCOSE METER 2023-03-28 07:39:00 Civunigunta, [facility] POCT-GLUCOSE METER 2023-03-28 05:26:00 Ivanna Marte [facility] BASIC METABOLIC PANEL 2023-03-28 04:43:00 [facility] CBC W/PLT COUNT & AUTO DIFFERENTIAL 2023-03-28 04:43:00 [facility] CBC W/PLT COUNT & AUTO DIFFERENTIAL 2023-03-28 04:43:00 [facility] (CELLAVISION MANUAL DIFF) 2023-03-28 04:43:00 [facility] ECG 12-LEAD 2023-03-28 03:28:10 Unknown, Hl7 Doctor C [facility] ECG 12-LEAD 2023-03-28 03:28:10 Unknown, Hl7 Doctor C [facility] ECG 12-LEAD 2023-03-28 03:27:45 JeremieEva [facility] ECG 12-LEAD 2023-03-28 03:27:45 Unknown, Hl7 Doctor C [facility] POCT-GLUCOSE METER 2023-03-27 23:35:00 Lane Patterson mmad I [facility] POCT-GLUCOSE METER 2023-03-27 18:16:00 Lane Patterson mmad I [facility] POCT-GLUCOSE METER 2023-03-27 11:41:00 Lane Patterson mmad, I [facility] POCT-GLUCOSE METER 2023-03-27 07:02:00 Violet Myers [facility] BASIC METABOLIC PANEL 2023-03-27 03:25:00 [facility] CBC W/PLT COUNT & AUTO DIFFERENTIAL 2023-03-27 03:25:00 [facility] CBC W/PLT COUNT & AUTO DIFFERENTIAL 2023-03-27 03:25:00 Lashaun Manzanares [facility] POCT-GLUCOSE METER 2023-03-26 23:54:00 Violet Myers [facility] CT BRAIN WITHOUT IV CONTRAST 2023-03-26 23:08:00 Wendy Yakov Shea [facility] POCT-GLUCOSE METER 2023-03-26 12:42:00 [facility] VIT[facility] B12 2023-03-26 11:35:00 Shabana Ramirez [facility] POTASSIUM 2023-03-26 11:35:00 Shabana Ramirez I [facility] MAGNESIUM 2023-03-26 11:35:00 [facility] CT BRAIN WITHOUT IV CONTRAST 2023-03-26 04:03:00 [facility] BASIC METABOLIC PANEL 2023-03-26 03:19:00 Juanita Ramirez [facility] CBC W/PLT COUNT & AUTO DIFFERENTIAL 2023-03-26 03:19:00 Ashley [facility] MAGNESIUM 2023-03-26 03:19:00 Can Manzanares [facility] PHOSPHORUS 2023-03-26 03:19:00 Can Manzanares [facility] CBC W/PLT COUNT & AUTO DIFFERENTIAL 2023-03-26 03:19:00 Lashaun Manzanares [facility] POCT-GLUCOSE METER 2023-03-25 22:52:00 Marcia Worthington [facility] APTT 2023-03-25 18:48:00 Can Manzanares [facility] HIGH SENSITIVITY TROPONIN I 2023-03-25 18:48:00 [facility] TSH/FREE T4 IF INDICATED 2023-03-25 18:48:00 [facility] RPR 2023-03-25 18:48:00 Shabana Ramirez [facility] HC LAB HIV-1 AG W/HIV-1&2 AB 2023-03-25 18:48:00 [facility] HEMOGLOBIN A1C 2023-03-25 18:48:00 Shabana Ramirez [facility] LIPID PANEL 2023-03-25 18:48:00 [facility] T4, FREE 2023-03-25 18:48:00 [facility] HEPATIC FUNCTION PANEL 2023-03-25 18:48:00 Prateek Lashaun sandy [facility] PROTHROMBIN TIME/INR 2023-03-25 18:48:00 Leighton Canla Herminia [facility] ECG 12-LEAD 2023-03-25 17:36:04 Shabana Ramirez [facility] ECG 12-LEAD 2023-03-25 17:36:04 Unknown, Hl7 Doctor C [facility] BLOOD CULTURE SCREEN 2021-04-03 10:43:00 Juanita Lopez [facility] BLOOD CULTURE SCREEN 2021-04-03 10:10:00 Juanita Lopez [facility] PHOSPHORUS 2021-04-03 10:10:00 [facility] MAGNESIUM 2021-04-03 10:10:00 Sage Lopez [facility] BASIC METABOLIC PANEL (NA, K, CL, CO2, GLUCOSE, BUN, CREATININE, CA) 2021-04-03 10:10:00 Sage Lopez [facility] CBC WITH DIFF 2021-04-03 10:10:00 Sage Lopez [facility] XR ANKLE 3+ VW RIGHT 2021-04-02 17:41:36 Ashley Shea [facility] MAGNESIUM 2021-04-02 09:41:00 Sage Lopez [facility] BASIC METABOLIC PANEL (NA, K, CL, CO2, GLUCOSE, BUN, CREATININE, CA) 2021-04-02 09:41:00 Sage Lopez [facility] CBC WITH DIFF 2021-04-02 09:41:00 Sage Lopez [facility] XR HIP 1 VW BILATERAL 2021-04-02 02:10:54 Lynda Shea [facility] LACTIC ACID WHOLE BLOOD 2021-04-01 20:26:00 Marisel Bolivar [facility] CT ABDOMEN PELVIS W WO CONTRAST 2021-04-01 20:19:52 Sage Lopez [facility] BLOOD CULTURE SCREEN 2021-04-01 18:13:00 Jesus Bolivar [facility] PHOSPHORUS 2021-04-01 18:13:00 [facility] CREATINE KINASE 2021-04-01 18:13:00 sAhley Shea [facility] MAGNESIUM 2021-04-01 18:13:00 [facility] COMP. METABOLIC PANEL (87589) 2021-04-01 18:13:00 Marisel Bolivar [facility] BLOOD CULTURE WORKUP 2021-04-01 18:13:00 Jesus Bolivar [facility] GRAM NEGATIVE BLOOD PATHOGENS DNA PROBE-ANAEROBIC 2021-04-01 18:13:00 Marisel Bolivar [facility] ASSIGNMENT OF BENEFITS 2021-04-01 17:33:37 Docto r Unassigned, [place] [facility] NOTICE OF PRIVACY PRACTICES 2021-04-01 17:33:15 Doctor Unassigned, [place] [facility] CONSENT/REFUSAL FOR DIAGNOSIS AND TREATMENT 2021-04-01 17:32:51 Doctor Unassigned, [place] [facility] XR CHEST 1 VW 2021-04-01 17:27:37 Marisel Bolivar [facility] CBC WITH DIFF 2021-04-01 17:19:00 Marisel Bolivar [facility] LACTIC ACID WHOLE BLOOD 2021-04-01 17:19:00 Marisel Bolivar [facility] URINALYSIS 2021-04-01 17:18:00 [facility] 2021-04-01 17:18:00 Marisel Bolivar [facility] COVID-19 (ID NOW RAPID TESTING) 2021-04-01 17:18:00 Marisel Bolivar [facility] HB ECG ROUTINE & RHYTHM STRIP 2021-04-01 17:14:33 Marisel Bolivar [facility] Exploration of carpal tunnel 2003-10-31 00:00:00 [facility] 1980-10-31 00:00:00 [facility] Arthroplasty of the ankle 1969-10-31 00:00:00 [facility] Plan of Care Planned Activity Planned Date Details Comments Source Future Scheduled Test 2026-03-25 00:00:00 Lipid panel (procedure) [code = 83905676] [facility] Future Scheduled Test 2026-03-25 00:00:00 Lipid panel (procedure) [code = 73488277] [facility] Future Scheduled Test 2023-07-01 00:00:00 Influenza Vaccine (#1) [code = Influenza Vaccine (#1)] [facility] Future Scheduled Test 2023-07-01 00:00:00 Influenza Vaccine (#1) [code = Influenza Vaccine (#1)] [facility] Future Scheduled Test 2022-10-31 00:00:00 DEPRESSION SCREENING (12+) [code = DEPRESSION SCREENING (12+)] [facility] Future Scheduled Test 2022-10-31 00:00:00 DEPRESSION SCREENING (12+) [code = DEPRESSION SCREENING (12+)] [facility] Future Scheduled Test 2008 00:00:00 SHINGLES VACCINES (1 of 2) [code = SHINGLES VACCINES (1 of 2)] [facility] Future Scheduled Test 2008 00:00:00 SHINGLES VACCINES (1 of 2) [code = SHINGLES VACCINES (1 of 2)] [facility] Future Scheduled Test 1997-03-01 00:00:00 MEDICARE ANNUAL WELLNESS (YEAR 2 or FIRST YEAR if no IPPE) [code = MEDICARE ANNUAL WELLNESS (YEAR 2 or FIRST YEAR if no IPPE)] [facility] Future Scheduled Test 1997-03-01 00:00:00 MEDICARE ANNUAL WELLNESS (YEAR 2 or FIRST YEAR if no IPPE) [code = MEDICARE ANNUAL WELLNESS (YEAR 2 or FIRST YEAR if no IPPE)] [facility] Future Scheduled Test 1979 00:00:00 Screening for malignant neoplasm of cervix (procedure) [code = 365806186] [facility] Future Scheduled Test 1979 00:00:00 Screening for malignant neoplasm of cervix (procedure) [code = 839690468] [facility] Future Scheduled Test 1977 00:00:00 DTAP/TDAP/TD VACCINES (1 - Tdap) [code = DTAP/TDAP/TD VACCINES (1 - Tdap)] [facility] Future Scheduled Test 1977 00:00:00 DTAP/TDAP/TD VACCINES (1 - Tdap) [code = DTAP/TDAP/TD VACCINES (1 - Tdap)] [facility] Future Scheduled Test 1970 00:00:00 Tobacco Cessation Counseling and Screening (12+) [code = Tobacco Cessation Counseling and Screening (12+)] [facility] Future Scheduled Test 1970 00:00:00 Tobacco Cessation Counseling and Screening (12+) [code = Tobacco Cessation Counseling and Screening (12+)] [facility] Future Scheduled Test 1959-06-14 00:00:00 COVID-19 VACCINE (#1) [code = COVID-19 VACCINE (#1)] [facility] Future Scheduled Test 1959-06-14 00:00:00 COVID-19 VACCINE (#1) [code = COVID-19 VACCINE (#1)] [facility] Future Scheduled Test 1958 00:00:00 Screening for malignant neoplasm of breast (procedure) [code = 597462622] [facility] Future Scheduled Test 1958 00:00:00 CT Colonography (combo) [code = CT Colonography (combo)] [facility] Future Scheduled Test 1958 00:00:00 Screening for malignant neoplasm of colon (procedure) [code = 850781933] [facility] Future Scheduled Test 1958 00:00:00 Screening for malignant neoplasm of colon (procedure) [code = 319640856] [facility] Future Scheduled Test 1958 00:00:00 Screening for malignant neoplasm of colon (procedure) [code = 849178220] [facility] Future Scheduled Test 1958 00:00:00 Screening for malignant neoplasm of colon (procedure) [code = 163679158] [facility] Future Scheduled Test 1958 00:00:00 Sigmoidoscopy [code = Sigmoidoscopy] [facility] Future Scheduled Test 1958 00:00:00 Screening for malignant neoplasm of breast (procedure) [code = 703345210] [facility] Future Scheduled Test 1958 00:00:00 CT Colonography (combo) [code = CT Colonography (combo)] [facility] Future Scheduled Test 1958 00:00:00 Screening for malignant neoplasm of colon (procedure) [code = 106273178] [facility] Future Scheduled Test 1958 00:00:00 Screening for malignant neoplasm of colon (procedure) [code = 178231556] [facility] Future Scheduled Test 1958 00:00:00 Screening for malignant neoplasm of colon (procedure) [code = 226017629] [facility] Future Scheduled Test 1958 00:00:00 Screening for malignant neoplasm of colon (procedure) [code = 878217215] [facility] Future Scheduled Test 1958 00:00:00 Sigmoidoscopy [code = Sigmoidoscopy] [facility] Encounters Start Date/Time End Date/Time Encounter Type Admission Type Attending [facility] Care Department Encounter ID Source 2025-06-20 09:30:00 2025-06-20 10:30:00 Patient Outreach R Tila Fuller Mary E [facility] 1.840.114 350.1.13.10 4.2.7.2.686 [id number] [facility] 2025-06-20 09:30:00 2025-06-20 09:30:00 Patient Outreach R Neva Barry Irene C [facility] 1..840.114 350.1.13.10 4.2.7.2.686 [id number] [facility] 2025-06-17 00:00:00 2025-06-17 15:31:47 Patient Outreach Neva Barry Irene C [facility] 1.2.840.114 350.1.13.10 4.2.7.2.686 [id number] [facility] 2025-06-12 00:00:00 2025-06-12 16:07:56 Patient Outreach Neva Barry Irene C [facility] 1.2.840.114 350.1.13.10 4.2.7.2.686 [id number] [facility] 2025-06-07 00:00:00 2025-06-07 15:21:23 Patient Outreach Neva Barry Irene C [facility] 1.2.840.114 350.1.13.10 4.2.7.2.686 [id number] [facility] 2025-06-05 00:00:00 2025-06-05 14:55:46 Patient Outreach Neva Barry Irene C [facility] 1.2.840.114 350.1.13.10 4.2.7.2.686 [id number] [facility] 2025-06-04 00:00:00 2025-06-04 10:16:03 Patient Outreach Jonny Tila De La Fuente Jonny Tila De La Fuente [facility] 1.2.840.114 350.1.13.10 4.2.7.2.686 [id number] [facility] 2025-06-03 00:00:00 2025-06-04 09:20:58 Telephone Stevie Doshi [facility] 1.2.840.114 350.1.13.10 4.2.7.2.686 [id number] [facility] 2025-05-31 10:30:00 2025-05-31 10:47:11 Office Visit R STEVIE DOSHI [facility] 1.2.840.114 350.1.13.10 4.2.7.2.686 [id number] [facility] 2025-05-21 15:18:37 2025-05-21 23:59:00 Hospital Encounter R YESSY BOYD [facility] 1.2.840.114 350.1.13.10 4.2.7.2.686 [id number] [facility] 2025-05-08 10:00:00 2025-05-08 10:12:47 Office Visit R YESSY BOYD CRISTOPHER RAYMUNDO [facility] 1.2.840.114 350.1.13.10 4.2.7.2.686 [id number] [facility] 2025-02-08 00:00:00 2025-02-08 16:07:14 Telephone [facility] 1.2.840.114 350.1.13.10 4.2.7.2.686 [id number] [facility] 2024-11-07 13:00:00 2024-11-07 13:00:00 Outpatient CRISTOPHER BAILEY CRISTOPHER [facility] [id number] [facility] 2024-09-03 00:00:00 2024-09-03 00:00:00 Outpatient R CRISTOPHER RAYMUNDO CRISTOPHER [facility] [id number] [facility] 2024-08-22 09:30:00 2024-08-22 10:01:05 Outpatient R CRISTOPHER RAYMUNDO CRISTOPHER [facility] [id number] [facility] 2024-08-22 09:30:00 2024-08-22 10:01:05 Office Visit Cristopher Raymundo [facility] 1.2.840.114 350.1.13.10 4.2.7.2.686 [id number] [facility] 2024-05-31 13:45:00 2024-05-31 14:24:15 Outpatient R KARL HICKS [facility] [id number] [facility] 2024-05-31 13:45:00 2024-05-31 14:24:15 Office Visit Karl Hicks [facility] 1.2.840.114 350.1.13.10 4.2.7.2.686 [id number] [facility] 2024-04-25 00:00:00 2024-04-27 09:39:42 Telephone Yessy Boyd [facility] 1.2.840.114 350.1.13.10 4.2.7.2.686 [id number] [facility] 2024-04-25 00:00:00 2024-04-25 15:54:30 Telephone Yessy Boyd [facility]IMARY [facility]TY CARE 1.2.840.114 350.1.13.10 4.2.7.2.686 [id number] [facility] 2024-04-25 00:00:00 2024-04-25 12:22:25 Telephone Yessy Ursula [facility] PRIMARY [facility] SPECIALTY CARE 1.2.840.114 350.1.13.10 4.2.7.2.686 [id number] [facility] 2024-04-25 09:30:00 2024-04-25 10:22:38 Outpatient R CRISTOPHER RAYMUNDO [facility] [id number] [facility] 2024-04-25 09:30:00 2024-04-25 10:22:38 Office Visit Cristopher Raymundo [facility] 1.2840.114 350.1.13.10 4.2.7.2.686 [id number] [facility] 2024-04-09 00:00:00 2024-04-09 11:04:40 Transition of Care Benny Emanuel 1.2840.114 350.1.13.10 4.2.7.2.686 [id number] [facility] 2024-03-21 18:45:00 2024-04-06 18:45:00 Inpatient U [facility] [id number] [facility] 2024-03-21 18:45:00 2024-04-06 18:45:00 Hospital Encounter Desmond Garay, Juany Jimenez, Gonsalo Lopez, Donny Cordero, Ai Willis, [facility] 1.2840.114 350.1.13.10 4.2.7.2.686 [id number] [facility] 2024-03-27 00:00:00 2024-04-06 10:44:00 Patient Outreach Shania Coleman [facility] 1.2840.114 350.1.13.10 4.2.7.2.686 [id number] [facility] 2024-03-23 11:45:00 2024-03-23 12:45:00 Surgery Francois Jama [facility] 1.2840.114 350.1.13.10 4.2.7.2.686 [id number] [facility] 2024-01-18 14:15:00 2024-01-18 15:24:20 [facility] [id number] [facility] 2024-01-18 14:15:00 2024-01-18 15:24:20 [facility] Visit [facility] KASSY DOCKERY [facility] 1.2840.114 350.1.13.10 4.2.7.2.686 [id number] [facility] 2024-01-18 00:00:00 2024-01-18 00:00:00 Orders Only Doctor Unassigned, [place] [facility] 1.2840.114 350.1.13.10 4.2.7.2.686 [id number] [facility] 2024-01-13 00:00:00 2024-01-13 00:00:00 Telephone Tess [facility] 1.2840.114 350.1.13.10 4.2.7.2.686 [id number] [facility] 2024-01-09 00:00:00 2024-01-09 00:00:00 Transition of Care Benny Emanuel [facility] 1.2.840.114 350.1.13.10 4.2.7.2.686 [id number] [facility] 2023-12-29 21:17:00 2024-01-06 17:47:00 Hospital Encounter Enid Ferraro, Félix Vaca [facility] 1.840.114 350.1.13.10 4.2.7.2.686 [id number] [facility] 2023-12-29 21:17:00 2024-01-06 17:47:00 Inpatient U FÉLIX [facility] [id number] [facility] 2023-12-29 12:30:00 2023-12-29 12:30:00 Outpatient JAMIN EDDY [facility] [id number] [facility] 2023-12-29 12:30:00 2023-12-29 12:30:00 Outpatient [facility] [id number] [facility] 2023-12-29 00:00:00 2023-12-29 00:00:00 Travel 1.2.840.1 28716.1.1 3.104.2.7 .3.461032 .8 1.2.840.114 350.1.13.10 4.2.7.3.698 [id number] [facility] 2023-12-21 00:00:00 2023-12-21 00:00:00 Letter (Out) Campaigns, Generic Provider 1.2.840.1 04783.1.1 3.104.2.7 .3.859488 .8 [id number] [facility] 2023-11-30 00:00:00 2023-11-30 00:00:00 Transition of Care Benny Emanuel 1.2.840.1 53836.1.1 3.104.2.7 .3.237055 .8 [id number] [facility] 2023-11-25 00:26:00 2023-11-29 16:41:00 [facility] [id number] [facility] 2023-11-25 00:26:00 2023-11-29 16:41:00 Hospital Encounter Crescencio Wilson Nia Gonzalez Agatha 1.2.840.1 83576.1.1 3.104.2.7 .3.713293 .8 [id number] [facility] 2023-11-28 00:00:00 2023-11-28 00:00:00 [facility], Care Transition 1.2.840.1 62407.1.1 3.104.2.7 .3.845484 .8 [id number] [facility] 2023-11-25 00:00:00 2023-11-25 00:00:00 Travel 1.2.840.1 07116.1.1 3.104.2.7 .3.279432 .8 1.2.840.114 350.1.13.10 4.2.7.3.698 084.8 [id number] [facility] 2023-11-15 00:00:00 2023-11-15 00:00:00 Orders Only Doctor Unassigned, [place] 1.2.840.1 99062.1.1 3.104.2.7 .3.579086 .8 [id number] [facility] 2023-11-03 12:45:00 2023-11-03 13:27:19 Office Visit Jamin Eddy [facility] [address] 1.2.840.114 350.1.13.58 9.2.7.2.686 [id number] [facility] 2023-11-03 12:45:00 2023-11-03 12:45:00 Outpatient [facility] [id number] [facility] 2023-10-26 00:00:00 2023-10-26 00:00:00 Orders Only Doctor Unassigned, [place] 1.2.840.1 85605.1.1 3.104.2.7 .3.367186 .8 [id number] [facility] 2023-10-06 11:15:00 2023-10-06 13:02:06 Office Visit Debbi Cason [facility] [address] 1.2.840.114 350.1.13.58 9.2.7.2.686 [id number] [facility] 2023-10-06 11:15:00 2023-10-06 13:01:53 Outpatient [facility] [id number] [facility] 2023-09-07 01:12:00 2023-09-14 22:10:00 Inpatient [facility] [id number] 11 Joesph Curran 2023-09-07 05:38:00 2023-09-14 16:10:00 Inpatient KACIE FARRAR [facility] [id number] 11 [facility] 2023-03-25 16:43:00 2023-03-31 18:41:00 Hospital Encounter ER Marcia Henning, Ana Myers, Eric Marte, Ivanna Yeny Civunigunta , Hermes Shemar, Patricio [facility] [id number] [facility] 2023-03-25 16:43:00 2023-03-31 18:41:00 Inpatient ER PATRICIO ZULETA [facility] Neuro ICU [id number] [facility] 2023-03-30 13:30:00 2023-03-30 13:53:00 Surgery Virtual, Surgeon [facility] [id number] [facility] 2023-03-30 10:27:00 2023-03-30 13:00:00 Anesthesia Event Nunu Melo [facility] [id number] [facility] 2023-03-25 00:00:00 2023-03-25 00:00:[address] [facility] [id number] [facility] 2021-04-06 00:00:00 2021-04-06 00:00:00 Transition of Care Benny Emanuel 1..840.114 350.1.13.10 4.2.7.2.686 [id number] [facility] 2021-04-01 12:05:00 2021-04-03 17:55:00 Hospital Encounter Marisel Bolivar Yaman [facility] ..840.114 350.1.13.10 4.2.7.2.686 [id number] [facility] 2021-04-01 12:05:00 2021-04-01 12:05:00 Emergency X MARISEL BOLIVAR RUST ERT [id number] [facility] 2018-01-03 06:53:00 2018-01-05 23:47:00 Inpatient Francisco r [facility] [id number] 64 Joesph Curran Results Test Description Test Time Test Comments Results Result Co mments Source [facility] GLUCOSE (AUTOMATED)2024-04-06 13:17:20* Test Item Value Reference Range Interpretation Comme nts POCT GLU (test code = 9950959113) 97 mg/dL 70-110 Lab Interpretation (test cod e = 72280-8) Normal [facility] GLUCOSE (AUTOMATED)2024-04-05 20:27:01* Test Item Value Reference Range Interpretation Comme nts POCT GLU (test code = 8409187568) 113 mg/dL 70-110 H Lab Interpretation (test cod e = 82725-6) Abnormal [facility] GLUCOSE (AUTOMATED)2024-04-05 16:23:10* Test Item Value Reference Range Interpretation Comme nts POCT GLU (test code = 0117223365) 75 mg/dL 70-110 Lab Interpretation (test cod e = 87396-2) Normal [facility] GLUCOSE (AUTOMATED)2024-04-05 13:15:42* Test Item Value Reference Range Interpretation Comme nts POCT GLU (test code = 9087745319) 97 mg/dL 70-110 Lab Interpretation (test cod e = 22392-0) Normal [facility] GLUCOSE (AUTOMATED)2024-04-04 21:57:44* Test Item Value Reference Range Interpretation Comme nts POCT GLU (test code = 4996416779) 78 mg/dL 70-110 Lab Interpretation (test cod e = 87949-3) Normal [facility] GLUCOSE (AUTOMATED)2024-04-04 16:40:51* Test Item Value Reference Range Interpretation Comme nts POCT GLU (test code = 9536008388) 71 mg/dL 70-110 Lab Interpretation (test cod e = 12451-1) Normal [facility] GLUCOSE (AUTOMATED)2024-04-04 13:07:00* Test Item Value Reference Range Interpretation Comme nts POCT GLU (test code = 5533733023) 62 mg/dL 70-110 L Lab Interpretation (test cod e = 46461-6) Abnormal [facility] GLUCOSE (AUTOMATED)2024-04-03 16:58:04* Test Item Value Reference Range Interpretation Comme nts POCT GLU (test code = 8409295675) 84 mg/dL 70-110 Lab Interpretation (test cod e = 89979-8) Normal [facility] GLUCOSE (AUTOMATED)2024-04-03 13:33:40* Test Item Value Reference Range Interpretation Comme nts POCT GLU (test code = 7888567142) 79 mg/dL 70-110 Lab Interpretation (test cod e = 64922-2) Normal [facility] GLUCOSE (AUTOMATED)2024-04-02 22:28:23* Test Item Value Reference Range Interpretation Comme nts POCT GLU (test code = 1139916181) 203 mg/dL 70-110 H Lab Interpretation (test cod e = 87847-4) Abnormal [facility] CULTURE [id number] 17:01:49* Test Item Value Reference Range Interpretation Comme nts Blood Culture-Aerobic (test code = 36294-3) No organisms isolated No growth Previous preliminary verified result was Culture In Progress on 03/28/2024 at 1501 CDTPrevious preliminary verified result was No growth at 24 hours on 03/29/2024 at 1201 CDTPrevious preliminary verified result was No growth at 48 hours on 03/30/2024 at 1201 CDTPrevious preliminary verified result was No growth at 72 hours on 03/31/2024 at 1201 CDT Blood Culture-Anaerobic (test code = 53504-0) No organisms isolated No growth Previous preliminary verified result was Culture In Progress on 03/28/2024 at 1501 CDTPrevious preliminary verified result was No growth at 24 hours on 03/29/2024 at 1201 CDTPrevious preliminary verified result was No growth at 48 hours on 03/30/2024 at 1201 CDTPrevious preliminary verified result was No growth at 72 hours on 03/31/2024 at 1201 CDT Lab Interpretation (test code = 99622-7) Normal [facility] CULTURE [id number] 17:01:49* Test Item Value Reference Range Interpretation Comme nts Blood Culture-Aerobic (test code = 46540-6) No organisms isolated No growth Previous preliminary verified result was Culture In Progress on 03/28/2024 at 1501 CDTPrevious preliminary verified result was No growth at 24 hours on 03/29/2024 at 1201 CDTPrevious preliminary verified result was No growth at 48 hours on 03/30/2024 at 1201 CDTPrevious preliminary verified result was No growth at 72 hours on 03/31/2024 at 1201 CDT Blood Culture-Anaerobic (test code = 27918-3) No organisms isolated No growth Previous preliminary verified result was Culture In Progress on 03/28/2024 at 1501 CDTPrevious preliminary verified result was No growth at 24 hours on 03/29/2024 at 1201 CDTPrevious preliminary verified result was No growth at 48 hours on 03/30/2024 at 1201 CDTPrevious preliminary verified result was No growth at 72 hours on 03/31/2024 at 1201 CDT Lab Interpretation (test code = 33354-7) Normal [facility] GLUCOSE (AUTOMATED)2024-04-02 16:35:00* Test Item Value Reference Range Interpretation Comme nts POCT GLU (test code = 5793347740) 103 mg/dL 70-110 Lab Interpretation (test cod e = 03026-4) [facility] [id number] 15:05:35* Test Item Value Reference Range Interpretation Comme nts Blood Culture Workup (test code = 600-7) No organisms isolated Lab Interpretation (test code = 31285-5) Normal [facility] GLUCOSE (AUTOMATED)2024-04-02 14:26:00* Test Item Value Reference Range Interpretation Comme nts POCT GLU (test code = 4172861756) 137 mg/dL 70-110 H Lab Interpretation (test cod e = 61986-3) Abnormal [facility] GLUCOSE (AUTOMATED)2024-04-02 13:09:07* Test Item Value Reference Range Interpretation Comme nts POCT GLU (test code = 7521807888) 64 mg/dL 70-110 L Lab Interpretation (test cod e = 19715-6) [facility]normal [facility] 1 [id number] 04:10:30Exam: Chest (1 View), 04/01/2024 7:00 AM. Ordering Physician: ANGELES WORKMAN. History: Right sided pneumo s/p chest tube with pleurodesis . Technique: One view of the chest. Comparison: Chest radiograph 03/31/2024 and 04/01/2024. Findings: See below. [facility] [id number] 03:27:22Exam: Chest (1 View), 04/01/2024 8:00 PM. Ordering Physician: ZACH PRATT JR. History: post ct pull cxr . Technique: One view of the chest. Comparison: Chest radiograph 04/01/2024. Findings: Intervalremoval of the right pleural drain without evidence of apneumothorax. Small right pleural effusion.Lucencies in the right upperlung are similar to prior. Elevation of the left hemidiaphragm. Persistentrightward shift of the mediastinum. Osseous structures are unchanged.[facility] 1 [id number] 00:07:47ORDERING PHYSICIAN: AI CORDERO. JENNIFER PETERSON CLINICAL HISTORY: spontaneous ptx . TECHNIQUE: 2views chest TECHNICAL QUALITY: Adequate COMPARISON: 03/30/2024. 03/29/2024 FINDINGS: Right chest tubeoverlying the right lower lateral chest.Unchanged dextrocardia. Mild bibasilar pulmonary opacities are unchangedand suggest atelectasis. Unchanged chronic deformity of the left humeralhead which could represent a chronic sequela of prior traumatic injury oravascular necrosis. Moderate degenerative c hanges at bilateral shoulders.No pneumothorax.[facility] POCT GLUCOSE (AUTOMATED)2024-03-31 18:02:34* Test Item Value Reference Range Interpretation Comme nts POCT GLU (test code = 2955530884) 93 mg/dL 70-110 Lab Interpretation (test cod e = 73939-7) Normal [facility] 1 [id number] 14:53:25EXAM: XR CHEST 1 VW COMPARISON: Multiple chest radiographs including chest radiograph on03/29/2024 HISTORY: serial chest xray for spontaneous pneumothorax FINDINGS:Lines/Devices: Right chest tube tip projected over the lateral right lower hemithorax. Lungs: Persistent low lung volumes. Slightly improved aeration of thelungs. Stable small right pleural effusion bullous changes in the rightapex again noted. Elevation of the left hemidiaphragm. No definitepneumothorax. Heart/Mediastinum: The cardiac silhouette remains deviated to the right,accentuated by the patient rotation. Bones and soft tissues: Severe left glenohumeral degenerative changes areseen with remodeling of the humeral head. Moderate distention of thestomach I, Lia Cortes MD., have reviewed this study and agree with theabove report.[facility] (NA, K, CL, CO2, GLUCOSE, BUN, CREATININE, CA) 2024-03-30 14:43:49* Test Item Value Reference Range Interpretation Comme nts NA (test code = 6275508117) 132 mmol/L 135-145 L K (test code = 4316022373) 4.1 mmol/L 3.5-5.0 CL (test code = 9388865716) 98 mmol/L 98-108 CO2 TOTAL (test code = 9504403032) 33 mmol/L 23-31 H AGAP (test code = 1350836172) 1 2-16 L BUN (test code = 6398657665) 9 mg/dL 7-23 GLUCOSE (test code = 5518656051) 97 mg/dL 70-110 CREATININE (test code = 2160-0) 0.32 mg/dL 0.50-1.04 L CALCIUM (test code = 1958910813) 8.1 mg/dL 8.6-10.6 L eGFR (test code = 36474-4) 116.1 mL/min/1.73m2 CKD-EPI eGFR (2020). Assuming creatinine has been stable day-to-day for at least three months, the eGFR indicates Category G1 (>= 90 mL/min/1.73 m2) Lab Interpretation (test code = 23246-9) Abnormal [facility] 1 [id number] 13:29:42ORDERING PHYSICIAN: DONNY LOPEZ. HISTORY: chest tube TECHNIQUE: AP COMPARISON: 03/29/2024 FINDINGS: Lungs: ?There are low lung volumes. The left hemidiaphragm is elevated.Bibasal streaky subsegmental atelectasis is noted. Pleura: ?There is a right chest tube. No pneumothorax is identified. Mediastinum/Diane: ?No masses or adenopathy. Heart: ?The heart is not enlarged. Other: ?Severe left glenohumeral degenerative joint disease is present.Severe remodeling of the humeral head is noted.[facility] CHEST 1 [id number] 14:25:58Clinical indication: ?pneumothorax s/p chest tube Exam: AP portable chest x-ray. Ordering physician: DONNY LOPEZ Technique: ?A single frontal view of the chest was obtained. ?A comparisonis made to prior AP view of the chest dated 03/28/2024. Findings: When compared to yesterday's film, there is a new enteric tubecoursing through the esophagus with its tip overlying the proximal stomach.The other t ubes and lines are stable. The cardiac silhouette is enlarged.There are diffuse increased interstitial markings consistent withinterstitial edema versus interstitial infection. There is a trace rightpleural effusion. There is emphysematous change in the lung apices. Thereis no evidence of a large pn eumothorax. ?Please note that chest radiographyhas limited sensitivity in evaluating for pulmonary masses.[facility] 2024-03-28 21:28:07EXAM: XR KUB HISTORY: 63 years-old Female; NG tube placement TECHNIQUE: Frontal view of the abdomenand pelvis [facility] [id number] 13:52:20ORDERING PHYSICIAN: DONNY LOPEZ. HISTORY: right PTX TECHNIQUE: AP COMPARISON: 03/27/2024 FINDINGS: Lungs: ?Endotracheal tube terminates 4 cm above the zackary. Linearsubsegmental atelectasis is seen atthe right perihilar lung. The left lungremains clear. Pleura: ?There is a trace right pleural effusion. No pneumothorax isidentified. A right chest tube is present Mediastinum/Diane: ?No masses or adenopathy. Heart: ?The heart is not enlarged. Other: ?No acute osseous abnormality is seen. [facility] (NA, K, CL, CO2, GLUCOSE, BUN, CREATININE, CA)2024-03-28 13:40:42* Test Item Value Reference Range Interpretation Comme nts NA (test code = 3470713942) 131 mmol/L 135-145 L K (test code = 9996559389) 4.2 mmol/L 3.5-5.0 CL (test code = 5718184429) 92 mmol/L 98-108 L CO2 TOTAL (test code = 2080760664) 37 mmol/L 23-31 H AGAP (test code = 0433849938) 2 2-16 BUN (test code = 5630254025) 21 mg/dL 7-23 GLUCOSE (test code = 3207468758) 98 mg/dL 70-110 CREATININE (test code = 2160-0) 0.49 mg/dL 0.50-1.04 L CALCIUM (test code = 8678309873) 7.9 mg/dL 8.6-10.6 L eGFR (test code = 21747-1) 104.7 mL/min/1.73m2 CKD-EPI eGFR (2020). Assuming creatinine has been stable day-to-day for at least three months, the eGFR indicates Category G1 (>= 90 mL/min/1.73 m2) Lab Interpretation (test code = 06601-1) Abnormal [facility]esium2024-05-29 13:40:42* Test Item Value Reference Range Interpretation Comme nts MAGNESIUM (test code = 6527521338) 1.9 mg/dL 1.7-2.4 Lab Interpretation (test cod e = 60271-2) Normal [facility] 1 [id number] 13:12:34ORDERING PHYSICIAN: DONNY LOPEZ. HISTORY: status post intubation TECHNIQUE: AP COMPARISON: 03/28/2024 FINDINGS: Lungs: ?Endotracheal tube terminates 3 cm above the zackary. Lungs aregrossly clear. Pleura: ?A right-sided chest tube is present. There is no pneumothorax. Mediastinum/Diane: ?No masses or adenopathy. Heart: ?The heart is not enlarged. Other: ?Severe left glenohumeral degenerative joint disease is seen, withmarked remodeling of the articular surfaces. [facility] Hospital[facility]oxin2024-05-29 11:42:34* Test Item Value Reference Range Interpretation Comme nts DIGOXIN (test code = 0636121174) 0.9 ng/mL 0.8-1.6 QUE (test code = QUE) Arrythmias: ?1.5 - 2.0 ng/mLToxic Range: ? Greater than or equal to 2.4 ng/mL Lab Interpretation (test code = 00475-7) Normal [facility] Ar[facility]ial Blood Gas.2024-03-28 02:30:16* Test Item Value Reference Range Interpretation Comme nts PH (test code = 2) 7.46 7.35-7.45 H PCO2 (test code = 5633609244) 51 35-45 H PO2 (test code = 5836401534) 58 80-100 L QUES HCO3 (test code = 7370154385) 35 22-26 H BE (test code = 2889627268) 9.3 -3.0-3.0 H Lab Interpretation (test cod e = 14978-4) Abnormal [facility]CT STR[facility]KE PERFUSION W [id number] 00:32:26CT STROKE ANGIOGRAM NECK, CT STROKE PERFUSION W CONTRAST, CT STROKE ANGIOGRAM HEAD HISTORY: Female 63 years Neuro deficit, acute, stroke suspected Rad: pleaseobtain POCT creatinine prior to CTA head/neck COMPARISON: CTA head and neck dated 03/23/2024 TECHNIQUE: Routine CTA head and neck were performed followingadministration of [address] perfusion was also performed andpostprocessed utilizing [employer] FINDINGS: CTA head: The PICA origin is visualized bilaterally. The basilar artery is normal incaliber. The superior cerebellar arteries are patent. The posteriorcerebral arteries are patent. The left anterior choroidal artery isenlarged and extends posteriorly to supply a portion of the posteriorcerebral artery territory. No sizable right posterior communicating arteryis present. The distal cervical, petrous, cavernous and supraclinoid internal carotidartery segments are patent. Vascular calcifications result in mild stenoseswithin the carotid siphons. The anterior and middle cerebral arteries are patent. An anteriorcommunicating artery is present. The dural venous sinuses are patent. CT PERFUSION: CT perfusion is normal. CTA NECK: Classic 3 vessel aortic arch branching anatomyis noted. Calcified plaquein the arch and arch vessel origins results in no more than mild luminalnarrowing. The innominate subclavian arteries are patent. The common carotid arteries, carotid bulbs and cervical internal carotidarteries are patent. The vertebral arteries are patent from their subclavian origins through thevertebrobasilar junction. Bullous changes and severe paraseptal emphysema are noted. An endotrachealtube terminates approximately 1-2 cm proximal to the zackary.[facility] [id number] 00:32:26CT STROKE ANGIOGRAM NECK, CT STROKE PERFUSION W CONTRAST, CT STROKE ANGIOGRAM HEAD HISTORY: Female 63 years Neuro deficit, acute, stroke suspected Rad: pleaseobtain POCT creatinine prior to CTA head/neck COMPARISON: CTA head and neck dated 03/23/2024 TECHNIQUE: Routine CTA head and neck were performed followingadministration of 80 mL [address]. [address] perfusion was also performed andpostprocessed utilizing [facility] FINDINGS: CTA head: The PICA origin is visualized bilaterally. The basilar artery is normal incaliber. The superior cerebellar arteries are patent. The posteriorcerebral arteries are patent. The left anterior choroidal artery isenlarged and extends posteriorly to supply a portion of the posteriorcerebral artery territory. No sizable right posterior communicating arteryis present. The distal cervical, petrous, cavernous and supraclinoid internal carotidartery segments are patent. Vascular calcifications result in mild stenoseswithin the carotid siphons. The anterior and middle cerebral arteries are patent. An anteriorcommunicating artery is present. The dural venous sinuses are patent. CT PERFUSION: CT perfusion is normal. CTA NECK: Classic 3 vessel aortic arch branching anatomyis noted. Calcified plaquein the arch and arch vessel origins results in no more than mild luminalnarrowing. The innominate subclavian arteries are patent. The common carotid arteries, carotid bulbs and cervical internal carotidarteries are patent. The vertebral arteries are patent from their subclavian origins through thevertebrobasilar junction. Bullous changes and severe paraseptal emphysema are noted. An endotrachealtube terminates approximately 1-2 cm proximal to the zackary.[facility]CT ACUTE STROKE [facility]GIOGRAM [id number] 00:32:26CT STROKE ANGIOGRAM NECK, CT STROKE PERFUSION W CONTRAST, CT STROKE ANGIOGRAM HEAD HISTORY: Female 63 years Neuro deficit, acute, stroke suspected Rad: pleaseobtain POCT creatinine prior to CTA head/neck COMPARISON: CTA head and neck dated 03/23/2024 TECHNIQUE: Routine CTA head and neck were performed followingadministration of 80 mL IV [address]. CT perfusion was also performed andpostprocessed utilizing [facility] FINDINGS: CTA head: The PICA origin is visualized bilaterally. The basilar artery is normal incaliber. The superior cerebellar arteries are patent. The posteriorcerebral arteries are patent. The left anterior choroidal artery isenlarged and extends posteriorly to supply a portion of the posteriorcerebral artery territory. No sizable right posterior communicating arteryis present. The distal cervical, petrous, cavernous and supraclinoid internal carotidartery segments are patent. Vascular calcifications result in mild stenoseswithin the carotid siphons. The anterior and middle cerebral arteries are patent. An anteriorcommunicating artery is present. The dural venous sinuses are patent. CT PERFUSION: CT perfusion is normal. CTA NECK: Classic 3 vessel aortic arch branching anatomyis noted. Calcified plaquein the arch and arch vessel origins results in no more than mild luminalnarrowing. The innominate subclavian arteries are patent. The common carotid arteries, carotid bulbs and cervical internal carotidarteries are patent. The vertebral arteries are patent from their subclavian origins through thevertebrobasilar junction. Bullous changes and severe paraseptal emphysema are noted. An endotrachealtube terminates approximately 1-2 cm proximal to the zackary.[facility] WO [id number] 00:24:40CT STROKE HEAD WO CONTRAST HISTORY: Female 63 years Neuro deficit, acute, stroke suspected COMPARISON: CT head dated 03/23/2024 TECHNIQUE: ?Routine CT head without contrast FINDINGS: The ventricles and cerebral sulci are unchanged in caliber andconfiguration. Moderate lateral and third ventriculomegaly are again noted,unchanged. No midline shift or pathological extra-axial fluid collection ispresent. The basal cisterns are unremarkable. No acute intracranial hemorrhage or mass effect is present.A remoteinfarct is redemonstrated in the right temporal and parietal lobes. Patchyhypoattenuation in the biconvexity deep white matter is nonspecific andlikely represents ischemic small vessel change. The calvarium and skull base are unremarkable. The mastoid air cells andparanasal air sinuses are clear. Endotracheal tube is partially visualized.[facility] (NA, K, CL, CO2, Glucose, BUN, Creatinine, CA)2024-03-28 00:07:18* Test Item Value Reference Range Interpretation Comme nts NA (test code = 9403805217) 132 mmol/L 135-145 L K (test code = 3149937937) 4.4 mmol/L 3.5-5.0 CL (test code = 7106530491) 87 mmol/L 98-108 L CO2 TOTAL (test code = 6700662926) 40 mmol/L 23-31 H AGAP (test code = 1648876053) 5 2-16 BUN (test code = 9934856970) 23 mg/dL 7-23 GLUCOSE (test code = 4044727205) 86 mg/dL 70-110 CREATININE (test code = 2160-0) 0.60 mg/dL 0.50-1.04 CALCIUM (test code = 9300093737) 8.2 mg/dL 8.6-10.6 L eGFR (test code = 54661-4) 99.8 mL/min/1.73m2 CKD-EPI eGFR (2020). Assuming creatinine has been stable day-to-day for at least three months, the eGFR indicates Category G1 (>= 90 mL/min/1.73 m2) Lab Interpretation (test code = 73463-6) Abnormal [facility] HospitalTroponin [id number] 23:57:38* Test Item Value Reference Range Interpretation Comme nts TROPONIN I (test code = 7288121401) 0.059 ng/mL <=0.034 H QUE (test code = QUE) Reference (Normal) Range (defined by the 99th percentile reference limit): <= 0.034 ng/mL Note: Cardiac troponin begins to rise 3-4 hours after the onset of ischemia. Repeat in 4-6 hours if the sample was drawn within 3-4 hours of the onset of the symptom and found normal. Diagnosis of myocardial injury is made with acute changes in cTn concentrations with at least one serial sample above the 99th percentile upper reference limit (URL), taken together with the patient's clinical presentation. Biotin has been reported to cause a negative bias, interpret results relative to patient's use of biotin. Lab Interpretation (test code = 13601-7) Abnormal [facility] HospitalProthrombin Time / [id number] 23:41:55* Test Item Value Reference Range Interpretation Comme [facility] PROTIME PATIENT (test code = 5964-2) 10.7 10.1-12.6 INR (test code = 6301-6) 1.0 Normal INR <1.1; Warfarin Therapeutic range 2.0 to 3.0 or 2.5 to 3.5, depending upon the indications. Lab Interpretation (test code = 08772-0) Normal [facility] HospitalaPTT2024-05-28 23:41:55* Test Item Value Reference Range Interpretation Comme [facility] APTT Patient (test code = 3173-2) 26 -36 Lab Interpretation (test cod e = 01715-0) Normal [facility] HospitalPOCT GLUCOSE (AUTOMATED)2024-03-27 23:34:36* Test Item Value Reference Range Interpretation Comme [facility] POCT GLU (test code = 4288493831) 83 mg/dL 70-110 Lab Interpretation (test cod e = 10504-4) Normal [facility] HospitalProfile / Xlkfeeee0632-61-59 23:33:35* Test Item Value Reference Range Interpretation Comme [facility] WBC (test code = 6690-2) 8.68 4.30-11.10 RBC (test code = 789-8) 3.97 3.93-5.25 HGB (test code = 718-7) 12.7 g/dL 11.6-15.0 HCT (test code = 4544-3) 38.1 % 35.7-45.2 MCH (test code = 785-6) 32.0 pg 25.9-32.8 MCV (test code = 787-2) 96.0 fL 80.6-95.5 H MCHC (test code = 786-4) 33.3 g/dL 31.6-35.1 PLT (test code = 777-3) 168 166-358 MPV (test code = 32348-4) 11.1 fL 9.5-12.9 RDW-CV (test code = 788-0) 14.6 % 12.0-15.5 RDW-SD (test code = 50929-0) 51.3 fL 39.0-49.9 H NRBC x10^3 (test code = 0058039378) See_Comment [Automated messa ge] The system which generated this result transmitted reference range: 10*3/?L. The reference range was not used to interpret this result as normal/abnormal. NRBC/100 WBC (test code = 2217682745) 0.0 0.0-10.0 IPF % (test code = 1957832036) Lab Interpretation (test code = 77227-0) Abnormal [facility] HospitalAC Panel 20 + Lactic Rnyu3537-64-13 22:33:59* Test Item Value Reference Range Interpretation Comme nts PH (test code = 2) 7.39 7.35-7.45 PCO2 (test code = 4772639615) 65 35-45 H PO2 (test code = 4559806666) 152 80-100 H HCO3 (test code = 5434768133) 39 22-26 H BE (test code = 9175660034) 10.9 -3.0-3.0 H THB (test code = 2347987900) 13.2 g/dL 12.0-16.0 %O2HB (test code = 4090423043) 98.0 % 94.0-99.0 %COHB ART (test code = 6945021313) 0.6 % 0.0-1.5 %METHB ART (test code = 9053991010) 0.3 % 0.4-1.5 L VOL%O2 ART (test code = 5623702979) 18.5 % 15.0-23.0 NA (test code = 7972827753) 130 mmol/L 135-145 L K+ (test code = 1701054676) 4.0 mmol/L 3.5-5.0 AC CA IONZ (test code = 5337507499) 4.40 mg/dL 4.50-5.30 L GLUCOSE (test code = 1071201858) 91 mg/dL 70-110 LACTIC ACID (test code = 2102857406) 0.79 mmol/L 0.50-2.20 Lab Interpretation (test cod e = 59097-2) Abnormal [facility] HospitalPOCT GLUCOSE (AUTOMATED)2024-03-27 22:08:59* Test Item Value Reference Range Interpretation Comme nts POCT GLU (test code = 5132144269) 94 mg/dL 70-110 Lab Interpretation (test cod e = 25376-2) Normal [facility] HospitalXR CHEST 1 [id number] 18:55:33Clinical indication: ?Pneumothorax after suction started Please performafter suction has been on for 5 minutes. Exam: AP portable chest x-ray. Ordering physician: JUANY PÉREZ Technique: ?A single frontal view of the chest was obtained. ?A comparisonis made to prior AP view of the chest dated 03/27/2024 12:17 PM. Findings: When compared to the prior film, there is been intervalreexpansion of the right lung. There is a stable pigtail chest tubeoverlying the right lower lobe. The cardiac silhouette is enlarged. Thethoracic aorta remains diffusely ectatic. The left hemidiaphragm iselevated. There are linear opacities in the right mid lung and at both lungbases consistent with atelectasis or scarring. There is no evidence of alarge pleural effusion. ?Please note that chest radiography has limitedsensitivity in evaluating for pulmonary masses.[facility] HospitalXR CHEST 1 [id number] 18:30:28XR CHEST 1 VW COMPARISON: 03/23/2024 CLINICAL INDICATIONS: Breath sounds absent TECHNIQUE: Routine ra diographic technique FINDING: ? Large right pneumothorax with collapse of the right lung. Review oftheexam from 03/23/2024 demonstrates a small pneumothorax evident at thecostophrenic angle.[facility] HospitalXR CHEST 1 VW 2024-03-27 18:21:37XR CHEST 1 VW COMPARISON: 03/27/2024 at 1029 hours CLINICAL INDICATIONS: Chest tube placement TECHNIQUE: Routine radiographic technique FINDING: ?528 at 1217 hours A pigtail catheter chest tube is been placed at the fifth intercostal spacewith catheter downward pointing. A large pneumothorax on the right is stillpresent. The right lung is collapsed representing an acute change from the chest on03/23/2024.[facility] GLUCOSE (AUTOMATED)2024-03-27 00:07:47* Test Item Value Reference Range Interpretation Comme [facility] POCT GLU (test code = 7803119698) 101 mg/dL 70-110 Lab Interpretation (test cod e = 01815-4) Normal [facility] GLUCOSE (AUTOMATED)2024-03-27 00:07:47* Test Item Value Reference Range Interpretation Comme [facility] POCT GLU (test code = 2592169419) 101 mg/dL 70-110 Lab Interpretation (test cod e = 04040-0) Normal [facility] Serum - 2 Hours After Regular Insulin Vpeqtctyszeqys4664-80-23 23:35:37* Test Item Value Reference Range Interpretation Comme nts K (test code = 8001546475) 5.0 mmol/L 3.5-5.0 Lab Interpretation (test cod e = 24369-4) Normal [facility] Serum - 2 Hours After Regular Insulin Lenzshcyeihxsa2163-73-91 23:35:37* Test Item Value Reference Range Interpretation Comme nts K (test code = 7754836917) 5.0 mmol/L 3.5-5.0 Lab Interpretation (test cod e = 99093-5) Normal [facility] GLUCOSE (AUTOMATED)2024-03-26 23:18:53* Test Item Value Reference Range Interpretation Comme nts POCT GLU (test code = 9327664105) 81 mg/dL 70-110 Lab Interpretation (test cod e = 45772-3) Normal [facility] GLUCOSE (AUTOMATED)2024-03-26 23:18:53* Test Item Value Reference Range Interpretation Comme nts POCT GLU (test code = 9617221167) 81 mg/dL 70-110 Lab Interpretation (test cod e = 98459-5) Normal [facility] GLUCOSE (AUTOMATED)2024-03-26 21:41:00* Test Item Value Reference Range Interpretation Comme nts POCT GLU (test code = 0459023569) 95 mg/dL 70-110 Lab Interpretation (test cod e = 12214-5) Normal [facility] GLUCOSE (AUTOMATED)2024-03-26 21:41:00* Test Item Value Reference Range Interpretation Comme nts POCT GLU (test code = 6916528790) 95 mg/dL 70-110 Lab Interpretation (test cod e = 97380-0) Normal [facility] Metabolic Panel (NA, K, CL, CO2, GLUCOSE, BUN, CREATININE, CA)2024-03-26 21:12:51* Test Item Value Reference Range Interpretation Comme nts NA (test code = 5783335196) 134 mmol/L 135-145 L K (test code = 8727269719) 6.0 mmol/L 3.5-5.0 H CL (test code = 4777417689) 90 mmol/L 98-108 L CO2 TOTAL (test code = 8136512507) 38 mmol/L 23-31 H AGAP (test code = 4810859763) 6 2-16 BUN (test code = 3672252942) 19 mg/dL 7-23 GLUCOSE (test code = 2046657362) 93 mg/dL 70-110 CREATININE (test code = 2160-0) 0.60 mg/dL 0.50-1.04 CALCIUM (test code = 0019046249) 8.7 mg/dL 8.6-10.6 eGFR (test code = 46428-0) 99.8 mL/min/1.73m2 CKD-EPI eGFR (2020). Assuming creatinine has been stable day-to-day for at least three months, the eGFR indicates Category G1 (>= 90 mL/min/1.73 m2) Lab Interpretation (test code = 89395-2) Abnormal [facility] Metabolic Panel (NA, K, CL, CO2, GLUCOSE, BUN, CREATININE, CA)2024-03-26 21:12:51* Test Item Value Reference Range Interpretation Comme nts NA (test code = 7952756545) 134 mmol/L 135-145 L K (test code = 8474793383) 6.0 mmol/L 3.5-5.0 H CL (test code = 1114570985) 90 mmol/L 98-108 L CO2 TOTAL (test code = 0588621280) 38 mmol/L 23-31 H AGAP (test code = 2500013280) 6 2-16 BUN (test code = 0790181402) 19 mg/dL 7-23 GLUCOSE (test code = 4539145351) 93 mg/dL 70-110 CREATININE (test code = 2160-0) 0.60 mg/dL 0.50-1.04 CALCIUM (test code = 3976270063) 8.7 mg/dL 8.6-10.6 eGFR (test code = 84469-5) 99.8 mL/min/1.73m2 CKD-EPI eGFR (2020). Assuming creatinine has been stable day-to-day for at least three months, the eGFR indicates Category G1 (>= 90 mL/min/1.73 m2) Lab Interpretation (test code = 71277-1) Abnormal [facility] HospitalN-Terminal Uke-Bdj5786-67-27 20:05:09* Test Item Value Reference Range Interpretation Comme nts NT-proBNP (test code = 63729-5) 46051 pg/mL <=125 H QUE (test code = QUE) Positive: Heart Failure Likely Lab Interpretation (test code = 49651-1) Abnormal [facility] HospitalN-Terminal Wcg-Ikc8202-28-27 20:05:09* Test Item Value Reference Range Interpretation Comme nts NT-proBNP (test code = 77925-2) 29519 pg/mL <=125 H QUE (test code = QUE) Positive: Heart Failure Likely Lab Interpretation (test code = 09423-4) Abnormal [facility] HospitalMagnesium2024-05-27 19:59:30* Test Item Value Reference Range Interpretation Comme nts MAGNESIUM (test code = 2670964204) 1.7 mg/dL 1.7-2.4 Lab Interpretation (test cod e = 16620-0) Normal [facility] Metabolic Panel (NA, K, CL, CO2, GLUCOSE, BUN, CREATININE, CA)2024-03-26 19:59:30* Test Item Value Reference Range Interpretation Comme nts NA (test code = 5456102681) 133 mmol/L 135-145 L K (test code = 5171009717) 6.0 mmol/L 3.5-5.0 H CL (test code = 2685567628) 91 mmol/L 98-108 L CO2 TOTAL (test code = 4575739401) 39 mmol/L 23-31 H AGAP (test code = 3102524294) 3 2-16 BUN (test code = 0330962519) 17 mg/dL 7-23 GLUCOSE (test code = 0955789789) 103 mg/dL 70-110 CREATININE (test code = 2160-0) 0.60 mg/dL 0.50-1.04 CALCIUM (test code = 4263942693) 8.8 mg/dL 8.6-10.6 eGFR (test code = 94226-7) 99.8 mL/min/1.73m2 CKD-EPI eGFR (2020). Assuming creatinine has been stable day-to-day for at least three months, the eGFR indicates Category G1 (>= 90 mL/min/1.73 m2) Lab Interpretation (test code = 13370-3) Abnormal [facility] HospitalDigoxin2024-05-27 19:59:30* Test Item Value Reference Range Interpretation Comme nts DIGOXIN (test code = 0471540196) 0.9 ng/mL 0.8-1.6 QUE (test code = QUE) Arrythmias: ?1.5 - 2.0 ng/mLToxic Range: ? Greater than or equal to 2.4 ng/mL Lab Interpretation (test code = 79303-4) Normal [facility] HospitalMagnesium2024-05-27 19:59:30* Test Item Value Reference Range Interpretation Comme nts MAGNESIUM (test code = 0580997569) 1.7 mg/dL 1.7-2.4 Lab Interpretation (test cod e = 37513-2) Normal [facility] (NA, K, CL, CO2, GLUCOSE, BUN, CREATININE, CA)2024-03-26 19:59:30* Test Item Value Reference Range Interpretation Comme nts NA (test code = 2024047169) 133 mmol/L 135-145 L K (test code = 5513501787) 6.0 mmol/L 3.5-5.0 H CL (test code = 1192276341) 91 mmol/L 98-108 L CO2 TOTAL (test code = 0818531051) 39 mmol/L 23-31 H AGAP (test code = 4640127651) 3 2-16 BUN (test code = 0471222511) 17 mg/dL 7-23 GLUCOSE (test code = 4522727390) 103 mg/dL 70-110 CREATININE (test code = 2160-0) 0.60 mg/dL 0.50-1.04 CALCIUM (test code = 5032429768) 8.8 mg/dL 8.6-10.6 eGFR (test code = 46834-0) 99.8 mL/min/1.73m2 CKD-EPI eGFR (2020). Assuming creatinine has been stable day-to-day for at least three months, the eGFR indicates Category G1 (>= 90 mL/min/1.73 m2) Lab Interpretation (test code = 48887-2) Abnormal [facility] HospitalDigoxin2024-05-27 19:59:30* Test Item Value Reference Range Interpretation Comme nts DIGOXIN (test code = 9988641281) 0.9 ng/mL 0.8-1.6 QUE (test code = QUE) Arrythmias: ?1.5 - 2.0 ng/mLToxic Range: ? Greater than or equal to 2.4 ng/mL Lab Interpretation (test code = 03081-1) Normal [facility] HospitalCb with Edns6983-31-57 18:42:06* Test Item Value Reference Range Interpretation Comme nts WBC (test code = 6690-2) 9.43 4.30-11.10 RBC (test code = 789-8) 4.42 3.93-5.25 HGB (test code = 718-7) 13.8 g/dL 11.6-15.0 HCT (test code = 4544-3) 42.0 % 35.7-45.2 MCV (test code = 787-2) 95.0 fL 80.6-95.5 MCH (test code = 785-6) 31.2 pg 25.9-32.8 MCHC (test code = 786-4) 32.9 g/dL 31.6-35.1 RDW-SD (test code = 14015-9) 51.2 fL 39.0-49.9 H RDW-CV (test code = 788-0) 14.9 % 12.0-15.5 PLT (test code = 777-3) 179 166-358 MPV (test code = 38325-6) 11.0 fL 9.5-12.9 NRBC/100 WBC (test code = 2619708709) 0.0 0.0-10.0 NRBC x10^3 (test code = 9549648204) See_Comment [Automated messa ge] The system which generated this result transmitted reference range: 10*3/?L. The reference range was not used to interpret this result as normal/abnormal. GRAN MAT (NEUT) % (test code = 770-8) 84.5 % IMM GRAN % (test code = 9082321944) 0.30 % LYMPH % (test code = 736-9) 7.2 % MONO % (test code = 5905-5) 6.4 % EOS % (test code = 713-8) 1.4 % BASO % (test code = 706-2) 0.2 % GRAN MAT x10^3(ANC) (test code = 0057159743) 7.97 10*3/uL 1.88-7.09 H IMM GRAN x10^3 (test code = 9462693596) 0.03 10*3/uL 0.00-0.06 LYMPH x10^3 (test code = 731-0) 0.68 10*3/uL 1.32-3.29 L MONO x10^3 (test code = 742-7) 0.60 10*3/uL 0.33-0.92 EOS x10^3 (test code = 711-2) 0.13 10*3/uL 0.03-0.39 BASO x10^3 (test code = 704-7) 0.01-0.07 Lab Interpretation (test code = 73781-4) Abnormal [facility] with Kwnm9312-91-94 18:42:06* Test Item Value Reference Range Interpretation Comme nts WBC (test code = 6690-2) 9.43 4.30-11.10 RBC (test code = 789-8) 4.42 3.93-5.25 HGB (test code = 718-7) 13.8 g/dL 11.6-15.0 HCT (test code = 4544-3) 42.0 % 35.7-45.2 MCV (test code = 787-2) 95.0 fL 80.6-95.5 MCH (test code = 785-6) 31.2 pg 25.9-32.8 MCHC (test code = 786-4) 32.9 g/dL 31.6-35.1 RDW-SD (test code = 38917-7) 51.2 fL 39.0-49.9 H RDW-CV (test code = 788-0) 14.9 % 12.0-15.5 PLT (test code = 777-3) 179 166-358 MPV (test code = 62400-9) 11.0 fL 9.5-12.9 NRBC/100 WBC (test code = 8466159133) 0.0 0.0-10.0 NRBC x10^3 (test code = 8601506783) See_Comment [Automated messa ge] The system which generated this result transmitted reference range: 10*3/?L. The reference range was not used to interpret this result as normal/abnormal. GRAN MAT (NEUT) % (test code = 770-8) 84.5 % IMM GRAN % (test code = 3475222167) 0.30 % LYMPH % (test code = 736-9) 7.2 % MONO % (test code = 5905-5) 6.4 % EOS % (test code = 713-8) 1.4 % BASO % (test code = 706-2) 0.2 % GRAN MAT x10^3(ANC) (test code = 9407054718) 7.97 10*3/uL 1.88-7.09 H IMM GRAN x10^3 (test code = 1526974164) 0.03 10*3/uL 0.00-0.06 LYMPH x10^3 (test code = 731-0) 0.68 10*3/uL 1.32-3.29 L MONO x10^3 (test code = 742-7) 0.60 10*3/uL 0.33-0.92 EOS x10^3 (test code = 711-2) 0.13 10*3/uL 0.03-0.39 BASO x10^3 (test code = 704-7) 0.01-0.07 Lab Interpretation (test code = 51500-6) Abnormal [facility]XR [facility] 1 [id number] 05:37:36PROCEDURE: XR CHEST 1 VW CLINICAL INDICATION: sob COMPARISON: Chest radiographs dated 03/23/2024, 03/22/2024. FINDINGS: Limited examination due to patient positioning.Right PICC tip projects over the mid SVC.Small right pleural effusion is noted. Bibasal atelectasis are seen. Againnoted small right apical pneumothorax. The cardiomediastinal silhouette isunchanged. Diffuse interstitial prominence noted.[facility]XR [facility] 1 [id number] 05:37:36PROCEDURE: XR CHEST 1 VW CLINICAL INDICATION: sob COMPARISON: Chest radiographs dated 03/23/2024, 03/22/2024. FINDINGS: Limited examination due to patient positioning.Right PICC tip projects over the mid SVC.Small right pleural effusion is noted. Bibasal atelectasis are seen. Againnoted small right apical pneumothorax. The cardiomediastinal silhouette isunchanged. Diffuse interstitial prominence noted.[facility] HospitalN-Terminal Kei-Pll3577-65-25 18:00:36* Test Item Value Reference Range Interpretation Comme nts NT-proBNP (test code = 25703-5) 89560 pg/mL <=125 H QUE (test code = QUE) Positive: Heart Failure Likely Lab Interpretation (test code = 88675-2) Abnormal [facility]N-[facility]inal Zei-Srf7395-66-25 18:00:36* Test Item Value Reference Range Interpretation Comme nts NT-proBNP (test code = 34406-5) 20808 pg/mL <=125 H QUE (test code = QUE) Positive: Heart Failure Likely Lab Interpretation (test code = 49145-3) Abnormal [facility] GLUCOSE (AUTOMATED)2024-03-24 17:25:07* Test Item Value Reference Range Interpretation Comme nts POCT GLU (test code = 1993943400) 137 mg/dL 70-110 H Lab Interpretation (test cod e = 64190-1) Abnormal [facility] GLUCOSE (AUTOMATED)2024-03-24 17:25:07* Test Item Value Reference Range Interpretation Comme nts POCT GLU (test code = 7337259850) 137 mg/dL 70-110 H Lab Interpretation (test cod e = 92615-0) Abnormal [facility] GLUCOSE (AUTOMATED)2024-03-24 12:57:08* Test Item Value Reference Range Interpretation Comme nts POCT GLU (test code = 6609350162) 82 mg/dL 70-110 Lab Interpretation (test cod e = 00307-5) Normal [facility] GLUCOSE (AUTOMATED)2024-03-24 12:57:08* Test Item Value Reference Range Interpretation Comme nts POCT GLU (test code = 2170394275) 82 mg/dL 70-110 Lab Interpretation (test cod e = 69610-7) Normal [facility] Metabolic Panel (NA, K, CL, CO2, GLUCOSE, BUN, CREATININE, CA)2024-03-24 08:06:33* Test Item Value Reference Range Interpretation Comme nts NA (test code = 6721360537) 130 mmol/L 135-145 L K (test code = 1269361361) 2.9 mmol/L 3.5-5.0 LL CL (test code = 1081276262) 88 mmol/L 98-108 L CO2 TOTAL (test code = 9628420995) 38 mmol/L 23-31 H AGAP (test code = 8566794610) 4 2-16 BUN (test code = 1675074190) 11 mg/dL 7-23 GLUCOSE (test code = 8283309586) 85 mg/dL 70-110 CREATININE (test code = 2160-0) 0.52 mg/dL 0.50-1.04 CALCIUM (test code = 8436209333) 7.7 mg/dL 8.6-10.6 L eGFR (test code = 83537-2) 103.3 mL/min/1.73m2 CKD-EPI eGFR (2020). Assuming creatinine has been stable day-to-day for at least three months, the eGFR indicates Category G1 (>= 90 mL/min/1.73 m2) Lab Interpretation (test code = 65019-2) Abnormal [facility] Metabolic Panel (NA, K, CL, CO2, GLUCOSE, BUN, CREATININE, CA)2024-03-24 08:06:33* Test Item Value Reference Range Interpretation Comme nts NA (test code = 4860521944) 130 mmol/L 135-145 L K (test code = 9747628951) 2.9 mmol/L 3.5-5.0 LL CL (test code = 1739213863) 88 mmol/L 98-108 L CO2 TOTAL (test code = 6213283617) 38 mmol/L 23-31 H AGAP (test code = 3240534852) 4 2-16 BUN (test code = 1940865997) 11 mg/dL 7-23 GLUCOSE (test code = 7468782289) 85 mg/dL 70-110 CREATININE (test code = 2160-0) 0.52 mg/dL 0.50-1.04 CALCIUM (test code = 1703291380) 7.7 mg/dL 8.6-10.6 L eGFR (test code = 54011-7) 103.3 mL/min/1.73m2 CKD-EPI eGFR (2020). Assuming creatinine has been stable day-to-day for at least three months, the eGFR indicates Category G1 (>= 90 mL/min/1.73 m2) Lab Interpretation (test code = 02616-3) [facility] 07:53:21* Test Item Value Reference Range Interpretation Comme nts MAGNESIUM (test code = 6970201735) 1.3 mg/dL 1.7-2.4 L Lab Interpretation (test cod e = 35210-9) [facility] 07:53:21* Test Item Value Reference Range Interpretation Comme nts MAGNESIUM (test code = 6512175381) 1.3 mg/dL 1.7-2.4 L Lab Interpretation (test cod e = 79567-8) Abnormal [facility] with Buau1753-16-09 07:31:01* Test Item Value Reference Range Interpretation Comme nts WBC (test code = 6690-2) 8.73 4.30-11.10 RBC (test code = 789-8) 4.07 3.93-5.25 HGB (test code = 718-7) 12.6 g/dL 11.6-15.0 HCT (test code = 4544-3) 38.4 % 35.7-45.2 MCV (test code = 787-2) 94.3 fL 80.6-95.5 MCH (test code = 785-6) 31.0 pg 25.9-32.8 MCHC (test code = 786-4) 32.8 g/dL 31.6-35.1 RDW-SD (test code = 32161-0) 48.2 fL 39.0-49.9 RDW-CV (test code = 788-0) 14.4 % 12.0-15.5 PLT (test code = 777-3) 182 166-358 MPV (test code = 70364-9) 10.7 fL 9.5-12.9 NRBC/100 WBC (test code = 2859666852) 0.0 0.0-10.0 NRBC x10^3 (test code = 6537713870) See_Comment [Automated messa ge] The system which generated this result transmitted reference range: 10*3/?L. The reference range was not used to interpret this result as normal/abnormal. GRAN MAT (NEUT) % (test code = 770-8) 83.2 % IMM GRAN % (test code = 4963805183) 0.50 % LYMPH % (test code = 736-9) 6.5 % MONO % (test code = 5905-5) 7.7 % EOS % (test code = 713-8) 1.8 % BASO % (test code = 706-2) 0.3 % GRAN MAT x10^3(ANC) (test code = 3043017560) 7.26 10*3/uL 1.88-7.09 H IMM GRAN x10^3 (test code = 0602547410) 0.04 10*3/uL 0.00-0.06 LYMPH x10^3 (test code = 731-0) 0.57 10*3/uL 1.32-3.29 L MONO x10^3 (test code = 742-7) 0.67 10*3/uL 0.33-0.92 EOS x10^3 (test code = 711-2) 0.16 10*3/uL 0.03-0.39 BASO x10^3 (test code = 704-7) 0.03 10*3/uL 0.01-0.07 Lab Interpretation (test code = 68422-2) Abnormal [facility] with [id number] 07:31:01* Test Item Value Reference Range Interpretation Comme nts WBC (test code = 6690-2) 8.73 4.30-11.10 RBC (test code = 789-8) 4.07 3.93-5.25 HGB (test code = 718-7) 12.6 g/dL 11.6-15.0 HCT (test code = 4544-3) 38.4 % 35.7-45.2 MCV (test code = 787-2) 94.3 fL 80.6-95.5 MCH (test code = 785-6) 31.0 pg 25.9-32.8 MCHC (test code = 786-4) 32.8 g/dL 31.6-35.1 RDW-SD (test code = 28221-0) 48.2 fL 39.0-49.9 RDW-CV (test code = 788-0) 14.4 % 12.0-15.5 PLT (test code = 777-3) 182 166-358 MPV (test code = 63460-8) 10.7 fL 9.5-12.9 NRBC/100 WBC (test code = 7553110237) 0.0 0.0-10.0 NRBC x10^3 (test code = 5902404529) See_Comment [Automated messa ge] The system which generated this result transmitted reference range: 10*3/?L. The reference range was not used to interpret this result as normal/abnormal. GRAN MAT (NEUT) % (test code = 770-8) 83.2 % IMM GRAN % (test code = 1339222320) 0.50 % LYMPH % (test code = 736-9) 6.5 % MONO % (test code = 5905-5) 7.7 % EOS % (test code = 713-8) 1.8 % BASO % (test code = 706-2) 0.3 % GRAN MAT x10^3(ANC) (test code = 4825811796) 7.26 10*3/uL 1.88-7.09 H IMM GRAN x10^3 (test code = 9099094007) 0.04 10*3/uL 0.00-0.06 LYMPH x10^3 (test code = 731-0) 0.57 10*3/uL 1.32-3.29 L MONO x10^3 (test code = 742-7) 0.67 10*3/uL 0.33-0.92 EOS x10^3 (test code = 711-2) 0.16 10*3/uL 0.03-0.39 BASO x10^3 (test code = 704-7) 0.03 10*3/uL 0.01-0.07 Lab Interpretation (test code = 02504-0) Abnormal [facility] Acid Whole [id number] 07:06:46* Test Item Value Reference Range Interpretation Comme nts LACTIC ACID (test code = 8231314389) 1.24 mmol/L 0.50-2.20 Lab Interpretation (test cod e = 95100-1) Normal [facility] [id number] 07:06:46* Test Item Value Reference Range Interpretation Comme nts LACTIC ACID (test code = 5440177037) 1.24 mmol/L 0.50-2.20 Lab Interpretation (test cod e = 32675-9) Normal [facility] GLUCOSE (AUTOMATED)2024-03-23 22:47:55* Test Item Value Reference Range Interpretation Comme nts POCT GLU (test code = 8161951377) 96 mg/dL 70-110 Lab Interpretation (test cod e = 33307-4) Normal [facility] GLUCOSE (AUTOMATED)2024-03-23 22:47:55* Test Item Value Reference Range Interpretation Comme nts POCT GLU (test code = 1499633382) 96 mg/dL 70-110 Lab Interpretation (test cod e = 13112-1) Normal [facility] [id number] 21:12:44EXAM: CT ANGIOGRAM NECK, CT ANGIOGRAM HEAD HISTORY: Subarachnoid hemorrhage (SAH) TECHNIQUE: CTs head and neck angiograms were performed followingintravenous administration of contrast. COMPARISON: None. FINDINGS: CT NECK ANGIOGRAM Classic three-vessel branching anatomy of the aortic arch. Mildatherosclerotic calcifications of the aortic arch extending into the ostiaof major neck vessels without causing high-grade stenosis. The innominate and subclavian arteries are patent. The bilateral commoncarotid arteries, carotid bulbs and internal carotidarteries are patent without high-grade stenosis. Mild calcification of theleft carotid bifurcation without causing significant stenosis. The bilateral vertebral arteries originate from the subclavian arteries andare visualized throughout their entire cervical length. The ostia are freeof stenosis. No high- grade stenosis or dissection identified.Soft tissues of the neck are unremarkable. Right pneumothorax is redemonstrated. Centrilobular emphysematous changesnoted. Right jugular venous catheter noted with distention of the jugularvein notedSevere degenerative changes of the atlantoaxial joint with retroodontoidpannus formation. Grade 1 anterolisthesis of C4 over C5 with severedegenerative changes at C4-C7. CT HEAD ANGIOGRAM Evaluation is limited due to venous contamination. PICA origin is visualized bilaterally. The basilar artery isnormal incaliber and patent. The superior cerebellar arteries are unremarkable. origin of leftposterior cerebral artery. The Posterior cerebralarteries are patent. No sizable right posterior communicating artery. The distal cervical, petrous, cavernous and supraclinoid ICAs are patent.The anterior and middle cerebral arteries are patent. Small anteriorcommunicating artery is visualized. Dural venous sinuses are patent.[facility] [id number] 21:12:44EXAM: CT ANGIOGRAM NECK, CT ANGIOGRAM HEAD HISTORY: Subarachnoid hemorrhage (SAH) TECHNIQUE: CTs head and neck angiograms were performed followingintravenous administration of contrast. COMPARISON: None. FINDINGS: CT NECK ANGIOGRAM Classic three-vessel branching anatomy of the aortic arch. Mildatherosclerotic calcifications of the aortic arch extending into the ostiaof major neck vessels without causing high-grade stenosis. The innominate and subclavian arteries are patent. The bilateral commoncarotid arteries, carotid bulbs and internal carotidarteries are patent without high-grade stenosis. Mild calcification of theleft carotid bifurcation without causing significant stenosis. The bilateral vertebral arteries originate from the subclavian arteries andare visualized throughout their entire cervical length. The ostia are freeof stenosis. No high-grade stenosis or dissection identified.Soft tissues of the neck are unremarkable. Right pneumothorax is redemonstrated. Centrilobular emphysematous changesnoted. Right jugular venous catheter noted with distention of the jugularvein notedSevere degenerative changes of the atlantoaxial joint with retroodontoidpannus formation. Grade 1 an terolisthesis of C4 over C5 with severedegenerative changes at C4-C7. CT HEAD ANGIOGRAM Evaluation is limited due to venous contamination. PICA origin is visualized bilaterally. The basilar artery isnormal incaliber and patent. The superior cerebellar arteries are unremarkable. origin of leftposterior cerebral artery. The Posterior cerebralarteries are patent. No sizable right posterior communicating artery. The distal cervical, petrous, cavernous and supraclinoid ICAs are patent.The anterior and middle cerebral arteries are patent. Small anteriorcommunicating artery is visualized. Dural venous sinuses are patent.[facility] [id number] 21:12:44EXAM: CT ANGIOGRAM NECK, CT ANGIOGRAM HEAD HISTORY: Subarachnoid hemorrhage (SAH) TECHNIQUE: CTs head and neck angiograms were performed followingintravenous administration of contrast. COMPARISON: None. FINDINGS: CT NECK ANGIOGRAM Classic three-vessel branching anatomy of the aortic arch. Mildatherosclerotic calcifications of the aortic arch extending into the ostiaof major neck vessels without causing high-grade stenosis. The innominate and subclavian arteries are patent. The bilateral commoncarotid arteries, carotid bulbs and internal carotidarteries are patent without high-grade stenosis. Mild calcification of theleft carotid bifurcation without causing significant stenosis. The bilateral vertebral arteries originate from the subclavian arteries andare visualized throughout their entire cervical length. The ostia are freeof stenosis. No high-grade stenosis or dissection identified.Soft tissues of the neck are unremarkable. Right pneumothorax is redemonstrated. Centrilobular emphysematous changesnoted. Right jugular venous catheter noted with distention of the jugularvein notedSevere degenerative changes of the atlantoaxial joint with retroodontoidpannus formation. Grade 1 anterolisthesis of C4 over C5 with severedegenerative changes at C4-C7. CT HEAD ANGIOGRAM Evaluation is limited due to venous contamination. PICA origin is visualized bilaterally. The basilar artery isnormal incaliber and patent. The superior cerebellar arteries are unremarkable. origin of leftposterior cerebral artery. The Posterior cerebralarteries are patent. No sizable right posterior communicating artery. The distal cervical, petrous, cavernous and supraclinoid ICAs are patent.The anterior and middle cerebral arteries are patent. Small anteriorcommunicating artery is visualized. Dural venous sinuses are patent. [facility] [id number] 21:12:44EXAM: CT ANGIOGRAM NECK, CT ANGIOGRAM HEAD HISTORY: Subarachnoid hemorrhage (SAH) TECHNIQUE: CTs head and neck angiograms were performed followingintravenous administration of contrast. COMPARISON: None. FINDINGS: CT NECK ANGIOGRAM Classic three-vessel branching anatomy of the aortic arch. Mildatherosclerotic calcifications of the aortic arch extending into the ostiaof major neck vessels without causing high-grade stenosis. The innominate and subclavian arteries are patent. The bilateral commoncarotid arteries, carotid bulbs and internal carotidarteries are patent without high-grade stenosis. Mild calcification of theleft carotid bifurcation without causing significant stenosis. The bilateral vertebral arteries originate from the subclavian arteries andare visualized throughout their entire cervical length. The ostia are freeof stenosis. No high- grade stenosis or dissection identified.Soft tissues of the neck are unremarkable. Right pneumothorax is redemonstrated. Centrilobular emphysematous changesnoted. Right jugular venous catheter noted with distention of the jugularvein notedSevere degenerative changes of the atlantoaxial joint with retroodontoidpannus formation. Grade 1 anterolisthesis of C4 over C5 with severedegenerative changes at C4-C7. CT HEAD ANGIOGRAM Evaluation is limited due to venous contamination. PICA origin is visualized bilaterally. The basilar artery isnormal incaliber and patent. The superior cerebellar arteries are unremarkable. origin of leftposterior cerebral artery. The Posterior cerebralarteries are patent. No sizable right posterior communicating artery. The distal cervical, petrous, cavernous and supraclinoid ICAs are patent.The anterior and middle cerebral arteries are patent. Small anteriorcommunicating artery is visualized. 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 No hydrocephalus, midline shift or pathologicalextra-axial fluid collection is present. The basal cisterns areunremarkable. Cortical and subcortical hypoattenuation in the right parietal and temporallobes with some gyriform hyperdensity in the right parietal lobe likelyrepresenting cortical laminar necrosis. Patchy hypoattenuation in thebiconvexity deep white matter is nonspecific and most likely representsischemic small vessel change. The calvarium and skull base are u nremarkable. 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 No hydrocephalus, midline shift or pathologicalextra-axial fluid collection is present. The basal cisterns areunremarkable. Cortical and subcortical hypoattenuation in the right parietal and temporallobes with some gyriform hyperdensity in the right parietal lobe likelyrepresenting cortical laminar necrosis. Patchy hypoattenuation in thebiconvexity deep white matter is no nspecific and most likely representsischemic small vessel change. The calvarium and skull base are unremarkable. The mastoid air cells andvisualized paranasal air sinuses are clear.[facility] GLUCOSE (AUTOMATED) 2024-03-23 17:04:49* Test Item Value Reference Range Interpretation Comme nts POCT GLU (test code = 6106361238) 83 mg/dL 70-110 Lab Interpretation (test cod e = 96143-8) Normal [facility] GLUCOSE (AUTOMATED)2024-03-23 17:04:49* Test Item Value Reference Range Interpretation Comme nts POCT GLU (test code = 4583851491) 83 mg/dL 70-110 Lab Interpretation (test cod e = 08195-2) [facility] [id number] 16:49:12* Test Item Value Reference Range Interpretation Comme nts LACTIC ACID (test code = 7076764088) 1.51 mmol/L 0.50-2.20 Lab Interpretation (test cod e = 39384-7) [facility] [id number] 16:49:12* Test Item Value Reference Range Interpretation Comme nts LACTIC ACID (test code = 8954791689) 1.51 mmol/L 0.50-2.20 Lab Interpretation (test cod e = 23569-5) Normal [facility] 1 [id number] 14:36:44XR CHEST 1 VW COMPARISON: 03/22/2024 CLINICAL INDICATIONS: ptx TECHNIQUE: Routine radiographic technique FINDING: ? The chest is unremarkable ARGENTINE rotation. However in this position there isno evidenceof significant interval change in the chest. The right jugularvenous catheter, cardiomegaly and chronic changes are stable. [facility] CHEST 1 [id number] 14:36:44XR CHEST 1 VW COMPARISON: 03/22/2024 CLINICAL INDICATIONS: ptx TECHNIQUE: Routine radiographic technique FINDING: ? The chest is unremarkable ARGENTINE rotation. However in this position there isno evidenceof significant interval change in the chest. The right jugularvenous catheter, cardiomegaly and chronic changes are stable. [facility] GLUCOSE (AUTOMATED)2024-03-23 14:28:10* Test Item Value Reference Range Interpretation Comme nts POCT GLU (test code = 0172026527) 111 mg/dL 70-110 H Lab Interpretation (test cod e = 66698-9) Abnormal [facility] GLUCOSE (AUTOMATED)2024-03-23 14:28:10* Test Item Value Reference Range Interpretation Comme nts POCT GLU (test code = 0014636533) 111 mg/dL 70-110 H Lab Interpretation (test cod e = 00533-4) Abnormal [facility] HospitalVit[facility], [id number] 10:29:47* Test Item Value Reference Range Interpretation Comme nts VIT D 25OH (test code = 22195-9) 15 ng/mL 25-80 L QUE (test code = QUE) Deficiency: <20 ng/mLInsufficiency: 20-24 ng/mLOptimal: 25-80 ng/mL Lab Interpretation (test code = 93972-6) Abnormal [facility], [id number] 10:29:47* Test Item Value Reference Range Interpretation Comme [facility] VIT D 25OH (test code = 01957-2) 15 ng/mL 25-80 L QUE (test code = QUE) Deficiency: <20 ng/mLInsufficiency: 20-24 ng/mLOptimal: 25-80 ng/mL Lab Interpretation (test code = 02366-7) Abnormal [facility] HospitalLipid Panel (19531)(Total Cholesterol, Triglycerides, HDL)2024-03-23 09:34:18* Test Item Value Reference Range Interpretation Comme nts CHOL (test code = 0344560175) 246 mg/dL 120-200 H HDL (test code = 7325518150) 119 mg/dL >=50 HDLC RATIO (test code = 8032253340) 2.1 <=4.5 TRIG (test code = 1429913780) 142 mg/dL 30-170 LDL CHOL (test code = 52890-7) 99 mg/dL <=160 VLDL (test code = 4205900467) 28 mg/dL 5-60 Lab Interpretation (test cod e = 56381-4) Abnormal [facility] Hospital[facility] (64133)(Total Cholesterol, Triglycerides, HDL)2024-03-23 09:34:18* Test Item Value Reference Range Interpretation Comme nts CHOL (test code = 3317345741) 246 mg/dL 120-200 H HDL (test code = 2637672219) 119 mg/dL >=50 HDLC RATIO (test code = 0783698955) 2.1 <=4.5 TRIG (test code = 6007912696) 142 mg/dL 30-170 LDL CHOL (test code = 17595-7) 99 mg/dL <=160 VLDL (test code = 0984643258) 28 mg/dL 5-60 Lab Interpretation (test cod e = 07588-4) Abnormal [facility]N-Terminal Oqf-[id number] 09:32:16* Test Item Value Reference Range Interpretation Comme nts NT-proBNP (test code = 29071-4) 39956 pg/mL <=125 H QUE (test code = QUE) Positive: Heart Failure Likely Lab Interpretation (test code = 45399-8) Abnormal [facility] HospitalTroponin [id number] 09:32:16* Test Item Value Reference Range Interpretation Comme nts TROPONIN I (test code = 4801177900) 0.136 ng/mL <=0.034 H QUE (test code = QUE) Reference (Normal) Range (defined by the 99th percentile reference limit): <= 0.034 ng/mL Note: Cardiac troponin begins to rise 3-4 hours after the onset of ischemia. Repeat in 4-6 hours if the sample was drawn within 3-4 hours of the onset of the symptom and found normal. Diagnosis of myocardial injury is made with acute changes in cTn concentrations with at least one serial sample above the 99th percentile upper reference limit (URL), taken together with the patient's clinical presentation. Biotin has been reported to cause a negative bias, interpret results relative to patient's use of biotin. Lab Interpretation (test code = 13947-5) Abnormal [facility] Csp-[id number] 09:32:16* Test Item Value Reference Range Interpretation Comme nts NT-proBNP (test code = 70212-4) 40145 pg/mL <=125 H QUE (test code = QUE) Positive: Heart Failure Likely Lab Interpretation (test code = 88323-5) Abnormal [facility] HospitalTroponin [id number] 09:32:16* Test Item Value Reference Range Interpretation Comme nts TROPONIN I (test code = 2271888320) 0.136 ng/mL <=0.034 H QUE (test code = QUE) Reference (Normal) Range (defined by the 99th percentile reference limit): <= 0.034 ng/mL Note: Cardiac troponin begins to rise 3-4 hours after the onset of ischemia. Repeat in 4-6 hours if the sample was drawn within 3-4 hours of the onset of the symptom and found normal. Diagnosis of myocardial injury is made with acute changes in cTn concentrations with at least one serial sample above the 99th percentile upper reference limit (URL), taken together with the patient's clinical presentation. Biotin has been reported to cause a negative bias, interpret results relative to patient's use of biotin. Lab Interpretation (test code = 72210-3) Abnormal [facility] Metabolic Panel (NA, K, CL, CO2, GLUCOSE, BUN, CREATININE, CA)2024-03-23 09:21:35* Test Item Value Reference Range Interpretation Comme nts NA (test code = 3830105543) 130 mmol/L 135-145 L K (test code = 5310493341) 3.9 mmol/L 3.5-5.0 CL (test code = 6436441576) 94 mmol/L 98-108 L CO2 TOTAL (test code = 3999169376) 31 mmol/L 23-31 AGAP (test code = 4800501205) 5 2-16 BUN (test code = 3591351178) 7 mg/dL 7-23 GLUCOSE (test code = 9911602747) 94 mg/dL 70-110 CREATININE (test code = 2160-0) 0.50 mg/dL 0.50-1.04 CALCIUM (test code = 5837467540) 7.9 mg/dL 8.6-10.6 L eGFR (test code = 62430-4) 104.2 mL/min/1.73m2 CKD-EPI eGFR (2020). Assuming creatinine has been stable day-to-day for at least three months, the eGFR indicates Category G1 (>= 90 mL/min/1.73 m2) Lab Interpretation (test code = 80529-9) Abnormal [facility]2024-05-24 09:21:35* Test Item Value Reference Range Interpretation Comme nts MAGNESIUM (test code = 9516649785) 1.5 mg/dL 1.7-2.4 L Lab Interpretation (test cod e = 74599-7) Abnormal [facility] Metabolic Panel (NA, K, CL, CO2, GLUCOSE, BUN, CREATININE, CA)2024-03-23 09:21:35* Test Item Value Reference Range Interpretation Comme nts NA (test code = 2724726137) 130 mmol/L 135-145 L K (test code = 1473557674) 3.9 mmol/L 3.5-5.0 CL (test code = 6565770420) 94 mmol/L 98-108 L CO2 TOTAL (test code = 8870949505) 31 mmol/L 23-31 AGAP (test code = 2909924905) 5 2-16 BUN (test code = 4234481510) 7 mg/dL 7-23 GLUCOSE (test code = 6810343805) 94 mg/dL 70-110 CREATININE (test code = 2160-0) 0.50 mg/dL 0.50-1.04 CALCIUM (test code = 6375790763) 7.9 mg/dL 8.6-10.6 L eGFR (test code = 91285-1) 104.2 mL/min/1.73m2 CKD-EPI eGFR (2020). Assuming creatinine has been stable day-to-day for at least three months, the eGFR indicates Category G1 (>= 90 mL/min/1.73 m2) Lab Interpretation (test code = 92319-5) Abnormal [facility]2024-05-24 09:21:35* Test Item Value Reference Range Interpretation Comme nts MAGNESIUM (test code = 6081276405) 1.5 mg/dL 1.7-2.4 L Lab Interpretation (test cod e = 12837-9) Abnormal [facility] without [id number] 08:35:12* Test Item Value Reference Range Interpretation Comme nts WBC (test code = 6690-2) 7.87 4.30-11.10 RBC (test code = 789-8) 3.85 3.93-5.25 L HGB (test code = 718-7) 12.1 g/dL 11.6-15.0 HCT (test code = 4544-3) 36.1 % 35.7-45.2 MCH (test code = 785-6) 31.4 pg 25.9-32.8 MCV (test code = 787-2) 93.8 fL 80.6-95.5 MCHC (test code = 786-4) 33.5 g/dL 31.6-35.1 PLT (test code = 777-3) 194 166-358 MPV (test code = 74967-2) 10.7 fL 9.5-12.9 RDW-CV (test code = 788-0) 14.7 % 12.0-15.5 RDW-SD (test code = 63122-6) 49.5 fL 39.0-49.9 NRBC x10^3 (test code = 6180944973) See_Comment [Automated [employer]] The system which generated this result transmitted reference range: 10*3/?L. The reference range was not used to interpret this result as normal/abnormal. NRBC/100 WBC (test code = 9428912934) 0.0 0.0-10.0 IPF % (test code = 9974442542) Lab Interpretation (test code = 48236-9) Abnormal [facility] without [id number] 08:35:12* Test Item Value Reference Range Interpretation Comme nts WBC (test code = 6690-2) 7.87 4.30-11.10 RBC (test code = 789-8) 3.85 3.93-5.25 L HGB (test code = 718-7) 12.1 g/dL 11.6-15.0 HCT (test code = 4544-3) 36.1 % 35.7-45.2 MCH (test code = 785-6) 31.4 pg 25.9-32.8 MCV (test code = 787-2) 93.8 fL 80.6-95.5 MCHC (test code = 786-4) 33.5 g/dL 31.6-35.1 PLT (test code = 777-3) 194 166-358 MPV (test code = 19659-8) 10.7 fL 9.5-12.9 RDW-CV (test code = 788-0) 14.7 % 12.0-15.5 RDW-SD (test code = 45611-5) 49.5 fL 39.0-49.9 NRBC x10^3 (test code = 8068946965) See_Comment [Automated [employer]] The system which generated this result transmitted reference range: 10*3/?L. The reference range was not used to interpret this result as normal/abnormal. NRBC/100 WBC (test code = 7822790049) 0.0 0.0-10.0 IPF % (test code = 6087469983) Lab Interpretation (test code = 52007-7) [facility]normal [facility] [id number] 20:01:22ORDERING PHYSICIAN: YISSEL GARCIA. HISTORY: S/P line placement TECHNIQUE: AP COMPARISON: 03/22/2024 FINDINGS: Lungs: ?A right IJ line terminates at the cavoatrial junction. Moderateelevation of the left hemidiaphragm is unchanged. Linear foci of bibasilarsubsegmental atelectasis are unchanged. Pleura: ?A small right pneumothorax is unchanged. A small right pleuraleffusion is unchanged. Mediastinum/Diane: ?No masses or adenopathy. Heart: ?Prominent in size. Other: ?Severe left glenohumeral degenerative joint disease is seen.[facility] 1 [id number] 20:01:22ORDERING PHYSICIAN: YISSEL GARCIA. HISTORY: S/P line placement TECHNIQUE: AP COMPARISON: 03/22/2024 FINDINGS: Lungs: ?A right IJ line terminates at the cavoatrial junction. Moderateelevation of the left hemidiaphragm is unchanged. Linear foci of bibasilarsubsegmental atelectasis are unchanged. Pleura: ?A small right pneumothorax is unchanged. A small right pleuraleffusion is unchanged. Mediastinum/Diane: ?No masses or adenopathy. Heart: ?Prominent in size. Other: ?Severe left glenohumeral degenera tive joint disease is seen.[facility] 17:44:50* Test Item Value Reference Range Interpretation Comme nts Height (test code = 0414834664) 56 in Weight (test code = 8611816633) 104 lbs Systolic BP (test code = 0145270513) 114 mmHg Diastolic BP (test code = 4951909321) 102 mmHg Heart Rate (test code = 6228322781) 103 bpm BSA (test code = 9073942220) 1.36 m2 Ao root diam (test code = 8990689659) 3.20 cm Aortic root (test code = 6409728353) 3.2 cm Ao root annulus (test code = 4104283171) 3.2 cm LVOT diameter (test code = 7507535708) 1.85 cm LVOT area (test code = 5032527708) 2.70 cm2 LA size (test code = 0734804811) 4.3 cm TR Peak Tristen (test code = 1949956682) 274.4 cm/s Triscuspid Valve Regurgitation Peak Gradient (test code = 2595523929) 30.5 mmHg E wave decelartion time (test code = 7866485502) 0.10 s MV Peak E Tristen (test code = 2888054792) 116.9 cm/s MV stenosis pressure 1/2 time (test code = 6806338924) 29.0 ms MR max PG (test code = 1000897966) 81.40 mm[Hg] MR max tristen (test code = 8864962444) 450.80 cm/s Mr max tristen (test code = 1295305975) 450.8 m/s MV Prop V (test code = 4445124094) 78.10 cm/s MV E/e' septal (test code = 6898060609) 12.4 cm/s LAV(MOD-sp4) (test code = 0978826987) 127.10 mL Tapse (test code = 7052452140) 1.26 cm LVOT stroke volume (test code = 5036973182) 21.00 cm3 LVOT peak tristen (test code = 4070385664) 69.7 cm/s LVOT mn grad (test code = 4332424457) 0.9 mmHg AV LVOT peak gradient (test code = 2244219154) 1.94 mmHg LVOT peak VTI (test code = 9901042942) 7.9 cm LV V1 mean (test code = 5446272698) 44.60 cm/s Aortic valve mean velocity (test code = 6422191791) 80.4 cm/s Ao peak tristen (test code = 3771516493) 106.9 cm/s Ao VTI (test code = 5982265406) 15.0 cm AV area by cont VTI (test code = 0344754976) 1.4 cm2 AV area peak tristen (test code = 1307769160) 1.8 cm2 Ao max PG (test code = 7751956520) 4.60 mm[Hg] AV peak gradient (test code = 5063034613) 4.6 mmHg AV valve area (test code = 1821163263) 1.40 cm2 AV mean gradient (test code = 7460731048) 2.7 mmHg AV regurgitation pressure 1/2 time (test code = 3790219576) 772.5 ms AI dec slope (test code = 8432214713) 128.10 cm/s2 AI max tristen (test code = 6320902402) 337.80 cm/s AI max PG (test code = 8734231713) 46.60 mm[Hg] LVIDD (test code = 8022696370) 5.50 cm Left Ventricular End Diastolic Volume by Teichholz Method (test code = 1558044) 146.5 mL IVS (test code = 4480683778) 0.84 cm Interventricular Septum Diastolic Thickness by 2D (test code = 4263681) 0.84 cm LVPWD (test code = 8792439946) 0.87 cm PW (test code = 7050842642) 0.87 cm 0.6-1.1 EF(Teich) (test code = 5065392020) 23.50 % LVIDS (test code = 3869308940) 4.90 cm Left Ventricular End Systolic Volume by Teichholz Method (test code = 5639196) 112.1 mL FS (test code = 2088076616) 11 % EF - 2D (test code = 01655996) 23.50 % Radiology Study observation (narrative) (test code = 14862-2) QUE (test code = QEU) ?Left?Ventricle: Left ventricle size is normal. Normal wall thickness. Severe global hypokinesis present. Severely reduced systolic function with a visually estimated EF of 15 - 20%. Unable to assess diastolic function due to tachycardia. ?Left?Atrium: Left atrium is severely dilated. PFO/ASD present viewable by color Doppler. ?Right?Atrium: Right atrium is severely dilated. ?Right?Ventricle: Right ventricle is mildly dilated. Moderately reduced systolic function. ?Tricuspid?Valve: Mild transvalvular regurgitation. Right ventricular systolic pressure is 30-35 mmHg. ?RA pressure is 0-5 mmHg. Vicente Allison MD Left VentricleLeft ventricle size is normal. Normal wall thickness. Severe global hypokinesis present. Severely reduced systolic function with a visually estimated EF of 15 - 20%. Unable to assess diastolic function due to tachycardia.Right VentricleRight ventricle is mildly dilated. Moderately reduced systolic function.Left AtriumLeft atrium is severely dilated. PFO/ASD present viewable by color Doppler.Right AtriumRight atrium is severely dilated.IVC/SVCIVC diameter is less than or equal to 21 mm and decreases greater than 50% during inspiration; therefore the estimated right atrial pressure is normal (~0-5 mmHg).Mitral ValveMild mitral annular calcification. Mild to moderate transvalvular regurgitation. No stenosis.Tricuspid ValveTricuspid valve structure is normal. Mild transvalvular regurgitation. Right ventricular systolic pressure is 30-35 mmHg. RA pressure is 0-5 mmHg.Aortic ValveAortic valve opens well. Trace transvalvular regurgitation.Pulmoni c ValveNot well visualized.Ascending AortaNormal sized sinus of Valsalva.PericardiumT he pericardium is normal. No pericardial effusion.Study DetailsStudy quality experienced technical difficulty. A complete echocardiogram was performed using 2D, color flow Doppler and spectral Doppler. 3 mL of Optison ultrasound enhancing agent used. [facility]24-03-22 17:44:50* Test Item Value Reference Range Interpretation Comme nts Height (test code = 3046036250) 56 in Weight (test code = 3524233396) 104 lbs Systolic BP (test code = 8923076316) 114 mmHg Diastolic BP (test code = 7757714738) 102 mmHg Heart Rate (test code = 8968119327) 103 bpm BSA (test code = 2366052065) 1.36 m2 Ao root diam (test code = 1419693782) 3.20 cm Aortic root (test code = 7193188865) 3.2 cm Ao root annulus (test code = 9681119972) 3.2 cm LVOT diameter (test code = 1953259053) 1.85 cm LVOT area (test code = 3548667213) 2.70 cm2 LA size (test code = 9024246830) 4.3 cm TR Peak Tristen (test code = 7388941622) 274.4 cm/s Triscuspid Valve Regurgitation Peak Gradient (test code = 7638466870) 30.5 mmHg E wave decelartion time (test code = 5655385727) 0.10 s MV Peak E Tristen (test code = 3805011675) 116.9 cm/s MV stenosis pressure 1/2 time (test code = 9416940207) 29.0 ms MR max PG (test code = 6111604688) 81.40 mm[Hg] MR max tristen (test code = 8358883644) 450.80 cm/s Mr max tristen (test code = 6036500273) 450.8 m/s MV Prop V (test code = 6274309084) 78.10 cm/s MV E/e' septal (test code = 8251959808) 12.4 cm/s LAV(MOD-sp4) (test code = 3087735699) 127.10 mL Tapse (test code = 2732104110) 1.26 cm LVOT stroke volume (test code = 4894874967) 21.00 cm3 LVOT peak tristen (test code = 5377856073) 69.7 cm/s LVOT mn grad (test code = 1085443967) 0.9 mmHg AV LVOT peak gradient (test code = 9887639214) 1.94 mmHg LVOT peak VTI (test code = 7133369687) 7.9 cm LV V1 mean (test code = 2822310681) 44.60 cm/s Aortic valve mean velocity (test code = 2885874043) 80.4 cm/s Ao peak tristen (test code = 2470368145) 106.9 cm/s Ao VTI (test code = 0552772908) 15.0 cm AV area by cont VTI (test code = 9157338016) 1.4 cm2 AV area peak tristen (test code = 8826506002) 1.8 cm2 Ao max PG (test code = 5075321633) 4.60 mm[Hg] AV peak gradient (test code = 3074402491) 4.6 mmHg AV valve area (test code = 5379259155) 1.40 cm2 AV mean gradient (test code = 4788629150) 2.7 mmHg AV regurgitation pressure 1/2 time (test code = 3950416198) 772.5 ms AI dec slope (test code = 9025471743) 128.10 cm/s2 AI max tristen (test code = 5796696472) 337.80 cm/s AI max PG (test code = 4846228898) 46.60 mm[Hg] LVIDD (test code = 0885759060) 5.50 cm Left Ventricular End Diastolic Volume by Teichholz Method (test code = 8732420) 146.5 mL IVS (test code = 5231502126) 0.84 cm Interventricular Septum Diastolic Thickness by 2D (test code = 5101201) 0.84 cm LVPWD (test code = 8486707685) 0.87 cm PW (test code = 7536499580) 0.87 cm 0.6-1.1 EF(Teich) (test code = 5037287544) 23.50 % LVIDS (test code = 2768744668) 4.90 cm Left Ventricular End Systolic Volume by Teichholz Method (test code = 2975497) 112.1 mL FS (test code = 5626448305) 11 % EF - 2D (test code = 25134579) 23.50 % Radiology Study observation (narrative) (test code = 91923-2) QUE (test code = QUE) ?Left?Ventricle: Left ventricle size is normal. Normal wall thickness. Severe global hypokinesis present. Severely reduced systolic function with a visually estimated EF of 15 - 20%. Unable to assess diastolic function due to tachycardia. ?Left?Atrium: Left atrium is severely dilated. PFO/ASD present viewable by color Doppler. ?Right?Atrium: Right atrium is severely dilated. ?Right?Ventricle: Right ventricle is mildly dilated. Moderately reduced systolic function. ?Tricuspid?Valve: Mild transvalvular regurgitation. Right ventricular systolic pressure is 30-35 mmHg. ?RA pressure is 0-5 mmHg. Vicente Allison MD Left VentricleLeft ventricle size is normal. Normal wall thickness. Severe global hypokinesis present. Severely reduced systolic function with a visually estimated EF of 15 - 20%. Unable to assess diastolic function due to tachycardia.Right VentricleRight ventricle is mildly dilated. Moderately reduced systolic function.Left AtriumLeft atrium is severely dilated. PFO/ASD present viewable by color Doppler.Right AtriumRight atrium is severely dilated.IVC/SVCIVC diameter is less than or equal to 21 mm and decreases greater than 50% during inspiration; therefore the estimated right atrial pressure is normal (~0-5 mmHg).Mitral ValveMild mitral annular calcification. Mild to moderate transvalvular regurgitation. No stenosis.Tricuspid ValveTricuspid valve structure is normal. Mild transvalvular regurgitation. Right ventricular systolic pressure is 30-35 mmHg. RA pressure is 0-5 mmHg.Aortic ValveAortic valve opens well. Trace transvalvular regurgitation.Pulmoni c ValveNot well visualized.Ascending AortaNormal sized sinus of Valsalva.PericardiumT he pericardium is normal. No pericardial effusion.Study DetailsStudy quality experienced technical difficulty. A complete echocardiogram was performed using 2D, color flow Doppler and spectral Doppler. 3 mL of Optison ultrasound enhancing agent used. [facility] CHEST 1 [id number] 16:06:14HISTORY: Heart failure, COPD, hypoxia. TECHNIQUE: Portable AP view of the chest is obtained. Comparison made with01/06/2024 study. FINDINGS: Approximately 10-15% right-sided pneumothorax noted, new findingsince 01/06/2024 study. Moderate cardiomegaly noted with mild congestion/pulmonary edema in bothlungs. Moderate left elevated hemidiaphragm noted with adjacent left lowerlung showing chronic changesof fibrosis/atelectasis. No left-sidedpneumothorax. No significant pleural effusion. CONCLUSIONS: Small right-sided pneumothorax. CRITICAL FINDING: Diagnosis: Right pneumothorax Reported to and acknowledged by Dr. Rosales at 11:04 AM, on 03/22/2024 Failed attempts: 0.[facility] CHEST 1 [id number] 16:06:14HISTORY: Heart failure, COPD, hypoxia. TECHNIQUE: Portable AP view of the chest is obtained. Comparison made with01/06/2024 study. FINDINGS: Approximately 10-15% right-sided pneumothorax noted, new findingsince 01/06/2024 study. Moderate cardiomegaly noted with mild congestion/pulmonary edema in bothlungs. Moderate left elevated hemidiaphragm noted with adjacent left lowerlung showing chronic changesof fibrosis/atelectasis. No left- sidedpneumothorax. No significant pleural effusion. CONCLUSIONS: Small right- sided pneumothorax. CRITICAL FINDING: Diagnosis: Right pneumothorax Reported to and acknowledged by Dr. Rosales at 11:04 AM, on 03/22/2024 Failed attempts: 0. [facility] GLUCOSE (AUTOMATED)2024-03-22 11:49:56* Test Item Value Reference Range Interpretation Comme nts POCT GLU (test code = 2800910688) 106 mg/dL 70-110 Lab Interpretation (test cod e = 56790-1) Normal [facility] GLUCOSE (AUTOMATED)2024-03-22 11:49:56* Test Item Value Reference Range Interpretation Comme nts POCT GLU (test code = 4720396299) 106 mg/dL 70-110 Lab Interpretation (test cod e = 64923-2) Normal [facility] 1 [id number] 18:23:02Clinical indication: ?desats Ordering physician: PHYLLIS QUIROZ COMPARISON:Chest x-ray dated 01/15/2024 Technique: A single AP view of the chest is obtained. Findings: There is a stable pigtail drainage catheter overlying the rightlung base. The cardiac silhouette is mildly enlarged. The thoracic aorta isdiffusely ectatic. The left hemidiaphragm is elevated. There are bibasilarlinear opacities consistent with bibasilar atelectasis or fibrosis. Thereis a small right pleural effusion with adjacent patchy opacity in the rightlung base suspicious for atelectasis or pneumonia. There is a stable smallright apical and basilar pneumothorax. ?Please note that chest radiographyhas limited sensitivity in evaluating for pulmonary masses.[facility]esium2024-03-[facility] 12:27:56* Test Item Value Reference Range Interpretation Comme nts MAGNESIUM (test code = 9084506219) 1.8 mg/dL 1.7-2.4 Lab Interpretation (test cod e = 96824-2) Normal [facility] Metabolic Panel (NA, K, CL, CO2, GLUCOSE, BUN, CREATININE, CA)2024-01-06 12:27:56* Test Item Value Reference Range Interpretation Comme nts NA (test code = 5481028627) 135 mmol/L 135-145 K (test code = 1986401578) 3.9 mmol/L 3.5-5.0 CL (test code = 7219852287) 99 mmol/L 98-108 CO2 TOTAL (test code = 4132991170) 33 mmol/L 23-31 H AGAP (test code = 1172452064) 3 2-16 BUN (test code = 4310565600) 19 mg/dL 7-23 GLUCOSE (test code = 7659691615) 88 mg/dL 70-110 CREATININE (test code = 2160-0) 0.44 mg/dL 0.50-1.04 L CALCIUM (test code = 9531395785) 9.0 mg/dL 8.6-10.6 eGFR (test code = 62597-2) 107.5 mL/min/1.73m2 CKD-EPI eGFR (2020). Assuming creatinine has been stable day-to-day for at least three months, the eGFR indicates Category G1 (>= 90 mL/min/1.73 m2) Lab Interpretation (test code = 31967-0) Abnormal [facility] with [id number] 11:40:11* Test Item Value Reference Range Interpretation Comme nts WBC (test code = 6690-2) 5.92 4.30-11.10 RBC (test code = 789-8) 4.35 3.93-5.25 HGB (test code = 718-7) 13.7 g/dL 11.6-15.0 HCT (test code = 4544-3) 41.9 % 35.7-45.2 MCV (test code = 787-2) 96.3 fL 80.6-95.5 H MCH (test code = 785-6) 31.5 pg 25.9-32.8 MCHC (test code = 786-4) 32.7 g/dL 31.6-35.1 RDW-SD (test code = 64241-0) 46.7 fL 39.0-49.9 RDW-CV (test code = 788-0) 13.0 % 12.0-15.5 PLT (test code = 777-3) 239 166-358 MPV (test code = 83050-7) 10.5 fL 9.5-12.9 NRBC/100 WBC (test code = 8961465929) 0.0 0.0-10.0 NRBC x10^3 (test code = 5299631625) See_Comment [Automated messa ge] The system which generated this result transmitted reference range: 10*3/?L. The reference range was not used to interpret this result as normal/abnormal. GRAN MAT (NEUT) % (test code = 770-8) 58.6 % IMM GRAN % (test code = 8167917997) 1.40 % LYMPH % (test code = 736-9) 22.0 % MONO % (test code = 5905-5) 13.3 % EOS % (test code = 713-8) 3.5 % BASO % (test code = 706-2) 1.2 % GRAN MAT x10^3(ANC) (test code = 6073113469) 3.47 10*3/uL 1.88-7.09 IMM GRAN x10^3 (test code = 2692447778) 0.08 10*3/uL 0.00-0.06 H LYMPH x10^3 (test code = 731-0) 1.30 10*3/uL 1.32-3.29 L MONO x10^3 (test code = 742-7) 0.79 10*3/uL 0.33-0.92 EOS x10^3 (test code = 711-2) 0.21 10*3/uL 0.03-0.39 BASO x10^3 (test code = 704-7) 0.07 10*3/uL 0.01-0.07 Lab Interpretation (test code = 59065-9) Abnormal [facility] [id number] 04:57:29Ordering physician: PHYLLIS QUIROZ Clinical indication: Chest tube placed to waterseal. Assess pneumothorax. Comparison: 3:36 AM same day Technique: Chest, single view Technical quality: Adequate Findings: A right-sided pleural catheter is again noted and is unchanged in position.The previously noted very small right apical pneumothorax is not definitelyseen on the current study. There have been no ot her interval changes.[facility] [id number] 04:37:03Ordering Physician: PHYLLIS QUIROZ Clinical Indication: desats Additional Clinical Information: Technical Limitations: None Comparison: 01/05/2024 Technique: Portable chest obtained at 0340 hours Findings:There is a stable right basilar pigtail chest catheter. Tinyresidual right apical pneumothorax. Right effusion slightly smaller. Rightbase atelectasis slightly worse. Heart size is normal.[facility] 1 [id number] 02:28:21ORDERING PROVIDER: PHYLLIS QUIROZ HISTORY: desats ? TECHNIQUE: Standard XR CHEST 1 VW COMPARISON: CT chest 01/03/2024 and chest radiograph performed yesterday FINDINGS: The cardiomediastinal silhouette is stable in appearance. No evidence for pneumothorax. Stable position of right-sided pigtailoverlying the right lung base. No evidence for large pleural effusion. Nofocal consolidation is seen.[facility] [id number] 23:23:58EXAM: XR CHEST 1 VW COMPARISON: CT chest on 12/30/2023 HISTORY:63 years old, Female ?with Recent pneumothorax with chest tubeplaced .[facility] 1 [id number] 16:00:11EXAM: XR CHEST 1 VW, XR CHEST 1 VW COMPARISON: 01/18/2024 HISTORY:63 years old, Female ?with pleurodesis yesterday . [facility] 1 [id number] 16:00:11EXAM: XR CHEST 1 VW, XR CHEST 1 VW COMPARISON: 01/18/2024 HISTORY:63 years old, Female ?with pleurodesis yesterday .[facility]2024-03-06 14:45:49* Test Item Value Reference Range Interpretation Comme nts MAGNESIUM (test code = 2724494619) 1.7 mg/dL 1.7-2.4 Lab Interpretation (test cod e = 62710-6) Normal [facility] (NA, K, CL, CO2, GLUCOSE, BUN, CREATININE, CA)2024-01-04 14:45:49* Test Item Value Reference Range Interpretation Comme [facility] NA (test code = 2399237938) 133 mmol/L 135-145 L K (test code = 1216542508) 4.5 mmol/L 3.5-5.0 CL (test code = 2328275271) 98 mmol/L 98-108 CO2 TOTAL (test code = 1091353514) 27 mmol/L 23-31 AGAP (test code = 0739773368) 8 2-16 BUN (test code = 2081774582) 28 mg/dL 7-23 H GLUCOSE (test code = 2449636364) 105 mg/dL 70-110 CREATININE (test code = 2160-0) 0.58 mg/dL 0.50-1.04 CALCIUM (test code = 0765410089) 9.0 mg/dL 8.6-10.6 eGFR (test code = 07064-7) 100.6 mL/min/1.73m2 CKD-EPI eGFR (2020). Assuming creatinine has been stable day-to-day for at least three months, the eGFR indicates Category G1 (>= 90 mL/min/1.73 m2) Lab Interpretation (test code = 17193-0) Abnormal [facility] Metabolic Panel (NA, K, CL, CO2, GLUCOSE, BUN, CREATININE, CA)2024-01-04 14:45:49* Test Item Value Reference Range Interpretation Comme [facility] NA (test code = 4951819808) 133 mmol/L 135-145 L K (test code = 0813756653) 4.5 mmol/L 3.5-5.0 CL (test code = 7826463403) 98 mmol/L 98-108 CO2 TOTAL (test code = 3008192413) 27 mmol/L 23-31 AGAP (test code = 5865539978) 8 2-16 BUN (test code = 7132931768) 28 mg/dL 7-23 H GLUCOSE (test code = 2864543055) 105 mg/dL 70-110 CREATININE (test code = 2160-0) 0.58 mg/dL 0.50-1.04 CALCIUM (test code = 4018935929) 9.0 mg/dL 8.6-10.6 eGFR (test code = 40303-6) 100.6 mL/min/1.73m2 CKD-EPI eGFR (2020). Assuming creatinine has been stable day-to-day for at least three months, the eGFR indicates Category G1 (>= 90 mL/min/1.73 m2) Lab Interpretation (test code = 20335-6) Abnormal [facility]2024-03-06 14:45:49* Test Item Value Reference Range Interpretation Comme nts MAGNESIUM (test code = 0961558920) 1.7 mg/dL 1.7-2.4 Lab Interpretation (test cod e = 88768-1) Normal [facility] with [id number] 11:20:50* Test Item Value Reference Range Interpretation Comme nts WBC (test code = 6690-2) 10.99 4.30-11.10 RBC (test code = 789-8) 4.39 3.93-5.25 HGB (test code = 718-7) 13.9 g/dL 11.6-15.0 HCT (test code = 4544-3) 42.5 % 35.7-45.2 MCV (test code = 787-2) 96.8 fL 80.6-95.5 H MCH (test code = 785-6) 31.7 pg 25.9-32.8 MCHC (test code = 786-4) 32.7 g/dL 31.6-35.1 RDW-SD (test code = 57333-9) 47.8 fL 39.0-49.9 RDW-CV (test code = 788-0) 13.3 % 12.0-15.5 PLT (test code = 777-3) 309 166-358 MPV (test code = 59423-6) 10.7 fL 9.5-12.9 NRBC/100 WBC (test code = 3591918080) 0.0 0.0-10.0 NRBC x10^3 (test code = 2346866701) See_Comment [Automated messa ge] The system which generated this result transmitted reference range: 10*3/?L. The reference range was not used to interpret this result as normal/abnormal. GRAN MAT (NEUT) % (test code = 770-8) 75.8 % IMM GRAN % (test code = 6053532863) 0.80 % LYMPH % (test code = 736-9) 11.3 % MONO % (test code = 5905-5) 10.6 % EOS % (test code = 713-8) 0.9 % BASO % (test code = 706-2) 0.6 % GRAN MAT x10^3(ANC) (test code = 0335558573) 8.33 10*3/uL 1.88-7.09 H IMM GRAN x10^3 (test code = 6478383464) 0.09 10*3/uL 0.00-0.06 H LYMPH x10^3 (test code = 731-0) 1.24 10*3/uL 1.32-3.29 L MONO x10^3 (test code = 742-7) 1.16 10*3/uL 0.33-0.92 H EOS x10^3 (test code = 711-2) 0.10 10*3/uL 0.03-0.39 BASO x10^3 (test code = 704-7) 0.07 10*3/uL 0.01-0.07 Lab Interpretation (test code = 31103-0) Abnormal [facility] with [id number] 11:20:50* Test Item Value Reference Range Interpretation Comme nts WBC (test code = 6690-2) 10.99 4.30-11.10 RBC (test code = 789-8) 4.39 3.93-5.25 HGB (test code = 718-7) 13.9 g/dL 11.6-15.0 HCT (test code = 4544-3) 42.5 % 35.7-45.2 MCV (test code = 787-2) 96.8 fL 80.6-95.5 H MCH (test code = 785-6) 31.7 pg 25.9-32.8 MCHC (test code = 786-4) 32.7 g/dL 31.6-35.1 RDW-SD (test code = 30578-8) 47.8 fL 39.0-49.9 RDW-CV (test code = 788-0) 13.3 % 12.0-15.5 PLT (test code = 777-3) 309 166-358 MPV (test code = 21297-0) 10.7 fL 9.5-12.9 NRBC/100 WBC (test code = 0958081988) 0.0 0.0-10.0 NRBC x10^3 (test code = 8200493366) See_Comment [Automated [employer]] The system which generated this result transmitted reference range: 10*3/?L. The reference range was not used to interpret this result as normal/abnormal. GRAN MAT (NEUT) % (test code = 770-8) 75.8 % IMM GRAN % (test code = 9618074455) 0.80 % LYMPH % (test code = 736-9) 11.3 % MONO % (test code = 5905-5) 10.6 % EOS % (test code = 713-8) 0.9 % BASO % (test code = 706-2) 0.6 % GRAN MAT x10^3(ANC) (test code = 7123028063) 8.33 10*3/uL 1.88-7.09 H IMM GRAN x10^3 (test code = 7134481968) 0.09 10*3/uL 0.00-0.06 H LYMPH x10^3 (test code = 731-0) 1.24 10*3/uL 1.32-3.29 L MONO x10^3 (test code = 742-7) 1.16 10*3/uL 0.33-0.92 H EOS x10^3 (test code = 711-2) 0.10 10*3/uL 0.03-0.39 BASO x10^3 (test code = 704-7) 0.07 10*3/uL 0.01-0.07 Lab Interpretation (test code = 92621-7) Abnormal [facility] [id number] 01:01:24 ORDERING PHYSICIAN:FÉLIX CALI CLINICAL INFORMATION: ? PTX current with chest tube planning VATS COMPARISON: 12/30/2023 Technique: ? CT of the chest was performed after the administration of IVcontrast. Multiplanar reformats were also obtained. This study wasperformed according to ALARA principle for radiation dose reduction. Findings: Previously seen chest tube has been replaced by an anterior percutaneouspigtail catheter chest tube resting in the anterior aspect of thecardiophrenic angleon the right side. Residual small pneumothorax in therange of 10% is seen anteriorly. This is decreased compared to previousexam. There is some persistent atelectasis in the right lower lobe.Previously seen hazy opacification in the right upper and right lower lobeshas resolved. Extensive centrilobular emphysematous changes are once againseen bilaterally. This includes some bulla formation in thelung apices,right greater than left. There are no pleural effusions. There is persistent asymmetricelevation of the left hemidiaphragm.Associated atelectasis the left lower lobe is also once again seen. Nosuspicious endobronchial lesions are seen in the central airways. Heart isnormal in size. There is no pericardial effusion. No pathologicallyenlarged lymph nodes are seen in the mediastinum or h rob. Coronaryatherosclerotic calcifications are once again seen. No large centralpulmonary emboli are seen. Aorta normal in caliber. Limited visualizationof the upper abdominal structures shows no evidence of acute abnormalities.[facility] [id number] 00:48:23 EXAM: XR CHEST 1 VW COMPARISON: 01/03/2024 HISTORY: 63 years old Female with with hypoxia.[facility] [id number] 16:03:44EXAM: XR CHEST 1 VW COMPARISON: 01/02/2024 HISTORY: 63 years old Female with hypoxia [facility] [id number] 14:04:36ORDERING PHYSICIAN: FÉLIX MCPHERSON CLINICAL HISTORY:CT removal 4h check Please check at 3:10 pm for pneumothorax since intervalCT removal at 11:15 am TECHNIQUE:AP chest radiograph. COMPARISON:CXR earlier 01/02/2024. FINDINGS:Interval removal of right chest tube. Trace residual pneumothorax suspectedat the right lung apex 0.3 cm. No signs of pleural effusion. Chronicelevation of left hemidiaphragm and mild mediastinal shift to the right isunchanged from prior imaging. No new lung consolidation. Advanceddegeneration and collapse of left humeral head unchanged from prior exam.Bones are otherwise unremarkable.[facility] (NA, K, CL, CO2, GLUCOSE, BUN, CREATININE, CA) 2024-01-03 12:16:32* Test Item Value Reference Range Interpretation Comme nts NA (test code = 1687933509) 135 mmol/L 135-145 K (test code = 4857692709) 4.0 mmol/L 3.5-5.0 CL (test code = 0149686001) 103 mmol/L 98-108 CO2 TOTAL (test code = 8093970375) 34 mmol/L 23-31 H AGAP (test code = 2170078934) 2-16 L BUN (test code = 3690684688) 14 mg/dL 7-23 GLUCOSE (test code = 4681482356) 96 mg/dL 70-110 CREATININE (test code = 2160-0) 0.34 mg/dL 0.50-1.04 L CALCIUM (test code = 4997364783) 8.3 mg/dL 8.6-10.6 L eGFR (test code = 86492-6) 114.4 mL/min/1.73m2 CKD-EPI eGFR (2020). Assuming creatinine has been stable day-to-day for at least three months, the eGFR indicates Category G1 (>= 90 mL/min/1.73 m2) Lab Interpretation (test code = 10948-3) Abnormal [facility] HospitalMagnesium2024-03-05 12:10:48* Test Item Value Reference Range Interpretation Comme nts MAGNESIUM (test code = 6758297653) 1.8 mg/dL 1.7-2.4 Lab Interpretation (test cod e = 15345-3) Normal [facility] HospitalCb with [id number] 11:44:42* Test Item Value Reference Range Interpretation Comme nts WBC (test code = 6690-2) 9.80 4.30-11.10 RBC (test code = 789-8) 3.75 3.93-5.25 L HGB (test code = 718-7) 11.9 g/dL 11.6-15.0 HCT (test code = 4544-3) 36.5 % 35.7-45.2 MCV (test code = 787-2) 97.3 fL 80.6-95.5 H MCH (test code = 785-6) 31.7 pg 25.9-32.8 MCHC (test code = 786-4) 32.6 g/dL 31.6-35.1 RDW-SD (test code = 72848-0) 49.2 fL 39.0-49.9 RDW-CV (test code = 788-0) 13.7 % 12.0-15.5 PLT (test code = 777-3) 264 166-358 MPV (test code = 00051-0) 10.8 fL 9.5-12.9 NRBC/100 WBC (test code = 0291084946) 0.0 0.0-10.0 NRBC x10^3 (test code = 6010701591) See_Comment [Automated messa ge] The system which generated this result transmitted reference range: 10*3/?L. The reference range was not used to interpret this result as normal/abnormal. GRAN MAT (NEUT) % (test code = 770-8) 74.0 % IMM GRAN % (test code = 5541386385) 0.80 % LYMPH % (test code = 736-9) 10.9 % MONO % (test code = 5905-5) 10.3 % EOS % (test code = 713-8) 3.1 % BASO % (test code = 706-2) 0.9 % GRAN MAT x10^3(ANC) (test code = 1601114462) 7.25 10*3/uL 1.88-7.09 H IMM GRAN x10^3 (test code = 1723539604) 0.08 10*3/uL 0.00-0.06 H LYMPH x10^3 (test code = 731-0) 1.07 10*3/uL 1.32-3.29 L MONO x10^3 (test code = 742-7) 1.01 10*3/uL 0.33-0.92 H EOS x10^3 (test code = 711-2) 0.30 10*3/uL 0.03-0.39 BASO x10^3 (test code = 704-7) 0.09 10*3/uL 0.01-0.07 H Lab Interpretation (test code = 48883-4) Abnormal [facility] HospitalCT THORAX WO [id number] 04:54:09 ORDERING PHYSICIAN:ENID SANDS CLINICAL INFORMATION: ? Dyspnea COMPARISON: None Technique: ? CT of the chest was performed without IV contrast. Multiplanarreformats were also obtained. This study was performed according to ALARAprinciple for radiation dose reduction. Please note that the study was performed on 12/2923 but not presented forinterpretation until 01/02/2024 Findings: There is a large right-sided pneumothorax with completecollapse/atelectasis of the right lung. Mild leftward deviation of themediastinum is also seen. Left lung shows evidence of emphysema withoutacute abnormalities. Heart is normal in size. There is no pericardialeffusion. No pathologically enlarged lymph nodesare seen. Limitedvisualization of the upper abdominal structures shows no evidence of acuteabnormalities. Extensive chronic changes are seen in the spine. Nosuspicious focal osseous lesions are seen.[facility] CHEST 1 VIEW, Portable, [place] [id number] 04:07:01ORDERING PHYSICIAN: ? PAULINE ROSARIO HISTORY: Post chest tube placement Chest xray immediately post p rocedure. ? COMPARISON: 01/02/2424 FINDINGS: A single frontal view of the chest. Heart is normal in size. ?There is no pulmonary edema. The right-sidedchest tube/pigtail catheter is seen in place projecting over the righthemithorax. There is a small residual right apical pneumothorax. Asymmetricelevation of the left hemidiaphragm is seen with atelectasis in the leftlower lobe. No large pleural effusions are seen. ? Osseous structures areunremarkable. ? Please note that chest radiography is not a sensitive modality for thedetection of masses. [facility]CT THORAX WO [id number] 04:02:06 ORDERING PHYSICIAN:ENID SANDS CLINICAL INFORMATION: ? Pneumothorax COMPARISON: 12/29/2023 Technique: ? CT of the chest was performed without IV contrast. Multiplanarreformats were also obtained. This study was performed according to ALARAprinciple for radiation dose reduction. Findings: Therehas been interval placement of a right-sided chest tube withreexpansion of most of the right lung. There is some persistent/residualatelectasis seen involving the basal segments of the right lower lobe. Mildhazy groundglass attenuation is seen involving the reexpanded right upperlobe as well as parts of the superior segment of the right lower lobe.Residual small pneumothorax in the range of approximately 15% is seen. Thisis located primarily in the anterior lung base. Extensive centrilobular andparaseptal emphysematous changes are once again seen bilaterally. Nopleural effusions are seen. No suspicious endobronchial lesions arepresent. Heart is normal in size. There is no pericardial effusion. Nopathologically enlarged lymph nodes are seen in the mediastinum or diane.Coronary artery calcifications are seen. Limited visualization of the upperabdominal structures shows no evidence of acuteabnormalities. Nosuspicious focal osseous lesions are seen.[facility]IR [facility] WITH TUBE WITH [id number] 03:40:00EXAM: IR PLEURAL DRAINAGE WITH TUBE WITH IMAGING CLINICAL HISTORY: chest tube placement CT guided CO MPARISON:none TECHNIQUE:CT scan of the higher pleural drainage tube. ?performed. Images obtainedWithout administration of intravenous contrast enhancement. Multiplanarreformations were also obtained and interpreted. Technical Quality: Diagnostic FINDINGS:There is anterior pneumothorax with percutaneous placement of anteriorpleural drain. Final images show pleural drain in the anterior rightpleural space. Presumed atelectasis lower lobes.[facility] HospitalBASI METABOLIC PANEL (NA, K, CL, CO2, GLUCOSE, BUN, CREATININE, CA) 2024-01-02 20:03:45* Test Item Value Reference Range Interpretation Comme nts NA (test code = 3658885639) 136 mmol/L 135-145 K (test code = 2693602824) 4.2 mmol/L 3.5-5.0 CL (test code = 5788652169) 103 mmol/L 98-108 CO2 TOTAL (test code = 3079806905) 31 mmol/L 23-31 AGAP (test code = 6239614150) 2 2-16 BUN (test code = 1823083000) 19 mg/dL 7-23 GLUCOSE (test code = 4292461799) 137 mg/dL 70-110 H CREATININE (test code = 2160-0) 0.45 mg/dL 0.50-1.04 L CALCIUM (test code = 9539017755) 8.0 mg/dL 8.6-10.6 L eGFR (test code = 64188-9) 106.9 mL/min/1.73m2 CKD-EPI eGFR (2020). Assuming creatinine has been stable day-to-day for at least three months, the eGFR indicates Category G1 (>= 90 mL/min/1.73 m2) Lab Interpretation (test code = 46012-6) Abnormal [facility] HospitalPROTHROMBIN TIME / [id number] 19:57:28* Test Item Value Reference Range Interpretation Comme nts PROTIME PATIENT (test code = 5964-2) 10.4 10.1-12.6 INR (test code = 6301-6) 0.9 Normal INR <1.1; Warfarin Therapeutic range 2.0 to 3.0 or 2.5 to 3.5, depending upon the indications. Lab Interpretation (test code = 03376-7) Normal [facility] HospitalPROTHROMBIN TIME / [id number] 19:57:28* Test Item Value Reference Range Interpretation Comme nts PROTIME PATIENT (test code = 5964-2) 10.4 10.1-12.6 INR (test code = 6301-6) 0.9 Normal INR <1.1; Warfarin Therapeutic range 2.0 to 3.0 or 2.5 to 3.5, depending upon the indications. Lab Interpretation (test code = 37699-9) Normal [facility] 1 [id number] 16:50:12EXAM: XR CHEST 1 VW COMPARISON: 01/01/2024 HISTORY: 63 years old Female with Pneumothorax [facility] GLUCOSE (AUTOMATED)2024-01-02 14:05:49* Test Item Value Reference Range Interpretation Comme [facility] POCT GLU (test code = 2519300234) 96 mg/dL 70-110 Lab Interpretation (test cod e = 40281-1) Normal [facility] GLUCOSE (AUTOMATED)2024-01-02 14:05:49* Test Item Value Reference Range Interpretation Comme [facility] POCT GLU (test code = 6113294051) 96 mg/dL 70-110 Lab Interpretation (test cod e = 17704-2) Normal [facility] HospitalBasic Metabolic Panel (NA, K, CL, CO2, GLUCOSE, BUN, CREATININE, CA)2024-01-02 09:28:48* Test Item Value Reference Range Interpretation Comme nts NA (test code = 8578229867) 138 mmol/L 135-145 K (test code = 0953436249) 4.1 mmol/L 3.5-5.0 CL (test code = 9417812467) 101 mmol/L 98-108 CO2 TOTAL (test code = 8643634165) 36 mmol/L 23-31 H AGAP (test code = 8083292376) 1 2-16 L BUN (test code = 8470138639) 16 mg/dL 7-23 GLUCOSE (test code = 9796507445) 113 mg/dL 70-110 H CREATININE (test code = 2160-0) 0.43 mg/dL 0.50-1.04 L CALCIUM (test code = 1683667397) 8.7 mg/dL 8.6-10.6 eGFR (test code = 75969-2) 108.1 mL/min/1.73m2 CKD-EPI eGFR (2020). Assuming creatinine has been stable day-to-day for at least three months, the eGFR indicates Category G1 (>= 90 mL/min/1.73 m2) Lab Interpretation (test code = 78266-4) Abnormal [facility] HospitalMagnesium2024-03-04 09:28:48* Test Item Value Reference Range Interpretation Comme nts MAGNESIUM (test code = 5541353629) 1.8 mg/dL 1.7-2.4 Lab Interpretation (test cod e = 11816-6) Normal [facility] with [id number] 09:18:29* Test Item Value Reference Range Interpretation Comme nts WBC (test code = 6690-2) 9.26 4.30-11.10 RBC (test code = 789-8) 4.26 3.93-5.25 HGB (test code = 718-7) 13.3 g/dL 11.6-15.0 HCT (test code = 4544-3) 41.8 % 35.7-45.2 MCV (test code = 787-2) 98.1 fL 80.6-95.5 H MCH (test code = 785-6) 31.2 pg 25.9-32.8 MCHC (test code = 786-4) 31.8 g/dL 31.6-35.1 RDW-SD (test code = 54130-2) 49.1 fL 39.0-49.9 RDW-CV (test code = 788-0) 13.7 % 12.0-15.5 PLT (test code = 777-3) 275 166-358 MPV (test code = 48233-4) 10.0 fL 9.5-12.9 NRBC/100 WBC (test code = 8041229737) 0.0 0.0-10.0 NRBC x10^3 (test code = 4006080249) See_Comment [Automated messa ge] The system which generated this result transmitted reference range: 10*3/?L. The reference range was not used to interpret this result as normal/abnormal. GRAN MAT (NEUT) % (test code = 770-8) 66.9 % IMM GRAN % (test code = 3036332398) 1.10 % LYMPH % (test code = 736-9) 18.1 % MONO % (test code = 5905-5) 10.0 % EOS % (test code = 713-8) 3.0 % BASO % (test code = 706-2) 0.9 % GRAN MAT x10^3(ANC) (test code = 7702193956) 6.19 10*3/uL 1.88-7.09 IMM GRAN x10^3 (test code = 8495284425) 0.10 10*3/uL 0.00-0.06 H LYMPH x10^3 (test code = 731-0) 1.68 10*3/uL 1.32-3.29 MONO x10^3 (test code = 742-7) 0.93 10*3/uL 0.33-0.92 H EOS x10^3 (test code = 711-2) 0.28 10*3/uL 0.03-0.39 BASO x10^3 (test code = 704-7) 0.08 10*3/uL 0.01-0.07 H Lab Interpretation (test code = 00376-1) Abnormal [facility] 1 [id number] 16:30:56CHEST SINGLE VIEW CLINICAL HISTORY: Chest tube placement and respiratory distress ORDERING PHYSICIAN: ?ENID FERRARO TECHNIQUE: Frontal view of chest. There was delayed submission of this examtoour work list. Follow-up exam has already been performed as of the timeof this dictation. COMPARISON: 12/29/2023 at 10:28 PM FINDINGS: A lower right hemithorax chest tube is noted. A right pneumothorax ispresent with the air gap in the lower hemithorax measuring 2.8 cm. Volumeloss in the right lung base is noted. There is no mediastinal shift. Adiffuse interstitial pattern of the lungs is observed. Asymmetric elevationof the left hemidiaphragm is noted. There is no convincing pleural effusionor evidence for an acute osseous process. The heart size is within normallimits. Severe erosive changesin the left shoulder are noted.[facility] Transthoracic echo (TTE)2023-12-30 23:26:43* Test Item Value Reference Range Interpretation Comme nts Height (test code = 6583625547) 57 in Weight (test code = 8400626376) 92 lbs Systolic BP (test code = 7606659054) 79 mmHg Diastolic BP (test code = 9443539734) 53 mmHg Heart Rate (test code = 7300036666) 107 bpm BSA (test code = 0976598356) 1.29 m2 LVOT diameter (test code = 9384091691) 1.86 cm LVOT area (test code = 6911010238) 2.70 cm2 LA size (test code = 9329295663) 3.6 cm MV Peak E Tristen (test code = 9888120665) 89.2 cm/s MV Peak A Tristen (test code = 3481147555) 104.8 cm/s E/A ratio (test code = 1792103521) 0.85 ratio E wave decelartion time (test code = 5983382909) 0.17 s MV Prop V (test code = 0509549006) 23.70 cm/s LAV(MOD-sp4) (test code = 8219368271) 67.20 mL Tapse (test code = 6020897224) 2.08 cm LVOT stroke volume (test code = 8571862120) 58.60 cm3 LVOT peak tristen (test code = 3230549323) 99.9 cm/s LVOT mn grad (test code = 7402503357) 1.8 mmHg AV LVOT peak gradient (test code = 2449852215) 4.0 mmHg LVOT peak VTI (test code = 6109943287) 21.6 cm LV V1 mean (test code = 8709380351) 62.00 cm/s Ao peak tristen (test code = 5694027560) 130.3 cm/s AV area peak tristen (test code = 4048137449) 2.1 cm2 Ao max PG (test code = 7447936953) 6.80 mm[Hg] AV peak gradient (test code = 5865549552) 6.8 mmHg LA Volume Index (BP) (test code = 3416494394) 44.9 mL/m2 LA volume (BP) (test code = 2632515317) 58.1 mL LAV(MOD-sp2) (test code = 4085949234) 48.20 mL LVIDD (test code = 0156286240) 4.90 cm Left Ventricular End Diastolic Volume by Teichholz Method (test code = 2839580) 113.7 mL IVS (test code = 0045845596) 0.56 cm Interventricular Septum Diastolic Thickness by 2D (test code = 3506362) 0.56 cm LVPWD (test code = 7310558912) 1.10 cm PW (test code = 3549517757) 1.10 cm 0.6-1.1 EF(Teich) (test code = 9945255796) 42.20 % LVIDS (test code = 0622281317) 3.90 cm Left Ventricular End Systolic Volume by Teichholz Method (test code = 7965480) 65.7 mL FS (test code = 9440214156) 21 % EF - 2D (test code = 54302766) 42.20 % Ao root diam (test code = 5903329390) 3.20 cm Aortic root (test code = 6163579547) 3.2 cm Ao root annulus (test code = 5776810378) 3.2 cm Radiology Study observation (narrative) (test code = 80819-4) QUE (test code = QUE) ?Left?Ventricle: Left ventricle size is normal. Normal wall thickness. Normal wall motion. Normal systolic function with a visually estimated EF of 55 - 60%. There is grade 1 diastolic dysfunction. ?Left?Atrium: Left atrium is moderately dilated. Left atrium volume index is 44.9 mL/m2. ?Right?Ventricle: Right ventricle size is normal. Normal systolic function. ?IVC/SVC: IVC diameter is less than or equal to 21 mm and decreases greater than 50% during inspiration; therefore the estimated right atrial pressure is normal (~0-5 mmHg). Vicente Allison MD Left VentricleLeft ventricle size is normal. Normal wall thickness. Normal wall motion. Normal systolic function with a visually estimated EF of 55 - 60%. There is grade 1 diastolic dysfunction.Right VentricleRight ventricle size is normal. Normal systolic function.Left AtriumLeft atrium is moderately dilated. Left atrium volume index is 44.9 mL/m2.Right AtriumRight atrium size is normal.IVC/SVCIVC diameter is less than or equal to 21 mm and decreases greater than 50% during inspiration; therefore the estimated right atrial pressure is normal (~0-5 mmHg).Mitral ValveMild mitral annular calcification. No stenosis.Tricuspid ValveTricuspid valve structure is normal. Trace transvalvular regurgitation. Insufficient tricuspid regurgitation jet to estimate RVSP .Aortic ValveAortic valve structure is normal.Pulmonic ValveNot well visualized.Ascending AortaNormal sized sinus of Valsalva.PericardiumT he pericardium is normal. No pericardial effusion.Study DetailsStudy quality was adequate. A complete echocardiogram was performed using 2D, color flow Doppler and spectral Doppler. 5 mL of Lumason ultrasound enhancing agent used. [facility] 1 [id number] 19:02:47ORDERING PHYSICIAN: ENID FERRARO. HISTORY: chest tube placement TECHNIQUE: AP COMPARISON: 12/29/2023 FINDINGS: Lungs: ?Moderate elevation of the left hemidiaphragm is unchanged. There issimilar subsegmental atelectasis at the right lower lobe. Pleura: ?A residual small pneumothorax is probablypresent at the right) Xsulcus. There is no pleural effusion. Mediastinum/Diane: ?Mild right mediastinal shift is unchanged. Heart: ?Heart is prominent Other: ?No acute osseous abnormality is seen. Subcutaneous emphysema isseen at the right chest wall.[facility] HospitalMagnesium2024-03-01 11:47:19* Test Item Value Reference Range Interpretation Comme nts MAGNESIUM (test code = 4225802610) 3.6 mg/dL 1.7-2.4 H Lab Interpretation (test cod e = 02447-8) Abnormal [facility] Metabolic Panel (NA, K, CL, CO2, GLUCOSE, BUN, CREATININE, CA)2023-12-30 11:47:19* Test Item Value Reference Range Interpretation Comme nts NA (test code = 7474390460) 133 mmol/L 135-145 L K (test code = 1640212968) 4.1 mmol/L 3.5-5.0 CL (test code = 2992328485) 100 mmol/L 98-108 CO2 TOTAL (test code = 7665138825) 30 mmol/L 23-31 AGAP (test code = 2662614979) 3 2-16 BUN (test code = 4092039905) 22 mg/dL 7-23 GLUCOSE (test code = 8719447860) 101 mg/dL 70-110 CREATININE (test code = 2160-0) 0.56 mg/dL 0.50-1.04 CALCIUM (test code = 3750037502) 8.4 mg/dL 8.6-10.6 L eGFR (test code = 40490-1) 101.4 mL/min/1.73m2 CKD-EPI eGFR (2020). Assuming creatinine has been stable day-to-day for at least three months, the eGFR indicates Category G1 (>= 90 mL/min/1.73 m2) Lab Interpretation (test code = 69131-4) Abnormal [facility] with [id number] 11:19:21* Test Item Value Reference Range Interpretation Comme nts WBC (test code = 6690-2) 8.64 4.30-11.10 RBC (test code = 789-8) 3.58 3.93-5.25 L HGB (test code = 718-7) 11.3 g/dL 11.6-15.0 L HCT (test code = 4544-3) 34.7 % 35.7-45.2 L MCV (test code = 787-2) 96.9 fL 80.6-95.5 H MCH (test code = 785-6) 31.6 pg 25.9-32.8 MCHC (test code = 786-4) 32.6 g/dL 31.6-35.1 RDW-SD (test code = 52290-3) 49.1 fL 39.0-49.9 RDW-CV (test code = 788-0) 13.8 % 12.0-15.5 PLT (test code = 777-3) 284 166-358 MPV (test code = 58149-1) 9.9 fL 9.5-12.9 NRBC/100 WBC (test code = 7209235344) 0.0 0.0-10.0 NRBC x10^3 (test code = 2486711542) See_Comment [Automated messa ge] The system which generated this result transmitted reference range: 10*3/?L. The reference range was not used to interpret this result as normal/abnormal. GRAN MAT (NEUT) % (test code = 770-8) 73.5 % IMM GRAN % (test code = 0121003300) 0.50 % LYMPH % (test code = 736-9) 10.1 % MONO % (test code = 5905-5) 14.4 % EOS % (test code = 713-8) 1.2 % BASO % (test code = 706-2) 0.3 % GRAN MAT x10^3(ANC) (test code = 5198490533) 6.36 10*3/uL 1.88-7.09 IMM GRAN x10^3 (test code = 6025426760) 0.04 10*3/uL 0.00-0.06 LYMPH x10^3 (test code = 731-0) 0.87 10*3/uL 1.32-3.29 L MONO x10^3 (test code = 742-7) 1.24 10*3/uL 0.33-0.92 H EOS x10^3 (test code = 711-2) 0.10 10*3/uL 0.03-0.39 BASO x10^3 (test code = 704-7) 0.03 10*3/uL 0.01-0.07 Lab Interpretation (test code = 34936-3) Abnormal [facility] Metabolic Panel (NA, K, CL, CO2, GLUCOSE, BUN, CREATININE, CA)2023-12-30 07:29:38* Test Item Value Reference Range Interpretation Comme nts NA (test code = 1539124222) 135 mmol/L 135-145 K (test code = 2311389381) 3.0 mmol/L 3.5-5.0 L CL (test code = 9567727585) 95 mmol/L 98-108 L CO2 TOTAL (test code = 0278425975) 32 mmol/L 23-31 H AGAP (test code = 5858249142) 8 2-16 BUN (test code = 3281486743) 24 mg/dL 7-23 H GLUCOSE (test code = 6977387647) 92 mg/dL 70-110 CREATININE (test code = 2160-0) 0.68 mg/dL 0.50-1.04 CALCIUM (test code = 4053206052) 8.8 mg/dL 8.6-10.6 eGFR (test code = 00767-6) 96.8 mL/min/1.73m2 CKD-EPI eGFR (2020). Assuming creatinine has been stable day-to-day for at least three months, the eGFR indicates Category G1 (>= 90 mL/min/1.73 m2) Lab Interpretation (test code = 93150-9) Abnormal [facility]2024-[facility] 07:05:16* Test Item Value Reference Range Interpretation Comme nts MAGNESIUM (test code = 6072156565) 1.6 mg/dL 1.7-2.4 L Lab Interpretation (test cod e = 62152-6) Abnormal [facility] 1 [id number] 14:41:24EXAM: XR CHEST 1 VW, XR CHEST 1 VW, XR CHEST 1 VW, XR CHEST 1 VW HISTORY: 62 years old Female with chest tube eval TECHNIQUE: Sequential portable AP view/s of the chest. COMPARISON: Outside chest x-rays and CT pulmonary angiogram from 11/24/2023nd chest x-ray from 11/25/2023.[facility] 2023-11-29 14:41:24EXAM: XR CHEST 1 VW, XR CHEST 1 VW, XR CHEST 1 VW, XR CHEST 1 VW HISTORY: 62 years old Female with chest tube eval TECHNIQUE: Sequential portable AP view/s of the chest. COMPARISON: Outside chest x-rays and CT pulmonary angiogram from 11/24/2023nd chest x-ray from 11/25/2023.[facility] 1 [id number] 14:41:24EXAM: XR CHEST 1 VW, XR CHEST 1 VW, XR CHEST 1 VW, XR CHEST 1 VW HISTORY: 62 years old Female with chest tube eval TECHNIQUE: Sequential portable AP view/s of the chest. COMPARISON: Outside chest x-rays and CT pulmonary angiogram from 11/24/2023nd chest x-ray from 11/25/2023.[facility] 1 [id number] 14:41:24EXAM: XR CHEST 1 VW, XR CHEST 1 VW, XR CHEST 1 VW, XR CHEST 1 VW HISTORY: 62 years old Female with chest tube eval TECHNIQUE: Sequential portable AP view/s of the chest. COMPARISON: Outside chest x-rays and CT pulmonary angiogram from 11/24/2023nd chest x-ray from 11/25/2023.[facility] [id number] 02:02:53EXAM: XR CHEST 1 VW COMPARISON: 11/25/2023 HISTORY[facility] [id number] 00:38:09EXAM: XR CHEST 1 VW COMPARISON: 11/24/2023 HISTORY: PTX [facility] [id number] 00:34:08EXAM: XR CHEST 1 VW COMPARISON: 11/24/2023 HISTORY: Ptx FINDINGS/IMPRESSION The tip of the right chest tube projects over the rightlower lung. Essential reexpansion of the right lung with residual partial atelectasisin the right middle and right lower lobe. Mediastinal shift to the right associated with elevated left diaphragm,back to baseline. Borderline heart size Severe left shoulder degenerative changes and partial collapse of thehumeral head.[facility] [id number] 00:32:46EXAM: XR CHEST 1 VW outside study performed 11/24/2023 COMPARISON: 04/01/2021 HISTORY: Sob FINDINGS: Lungs: Large right pneumothorax with mild mediastinal shift to the left.Moderate atelectasis throughout the left lung. Heart/Mediastinum: Borderline heart size. Calcified aorta. Elevated rightdiaphragm. Bones and soft tissues: Severe degenerative changes of the left shoulderjointUnHeart Hospital of AustinCT CHEST PULMONARY ANGIOGRAM 2023-11-28 16:15:03PROCEDURE: CT CHEST WITH CONTRAST- CHEST PE PROTOCOL CLINICAL INDICATION: A Long?is a 62 year old?female?with a PMH of charcotmarie tooth, spina bifida, muscular dystrophy, RA, active smoker,?whopresents for?pneumothorax s/p chest tube placement at OSH Comparison: ?Chest radiograph studies dated 11/24/2023, 04/01/2021. TECHNIQUE: Outside study performed 11/24/2023. Volumetric helical CTangiogram was performed of the chest (lung apices to bases) with IVcontrast. Images were reconstructed 2.5 mm axial images. 10 mm sagittal andcoronal MIP images were performed. Partially included right chest wall FI NDINGS: Devices: Right chest tube entering along the lateral seventh intercostalspace, directed posteriorly. The distal aspect of the tube is bent orbuckled (image 58 series 2). The distal trajectoryof the tube appears kerry intraparenchymal, within the superior segment for the right lower lobe. HEART AND GREAT VESSELS: The opacification of the pulmonary vasculature isappropriate. No filling defects are seen through the level of the proximalsegmental pulmonary arteries.The pulmonary trunk measures 3 cm. Unfolded thoracic aorta with moderate calcified and noncalcifiedatherosclerotic plaque. Eccentric mild thrombosis as thick as 5 mm in theregion near the diaphragmatic hiatus. At least moderate calcifications of the coronary vessels. Mediastinal shiftto the right, apparently chronic. Mild cardiomegaly with right atrialenlargement. Unremarkable pericardium. MEDIASTINUM AND LOWER NECK: No central airway lesions are detected. Theesophagus is within normal limits. There is a 1.4 hypodensitywith rimcalcification in the left thyroid lobe LYMPH NODES: Scattered small lymph nodes in both sides of the mediastinumand hilar regions. No evidence of intrathoracic lymphadenopathy. LUNGS AND PLEURA: Limited evaluation due to severe respiratory motionSevere centrilobular emphysema. Patchy groundglass opacities in the rightupper lung and denser consolidation in the right lower lobe. Partialatelectasis of the right middle lobe and in the left peridiaphragmaticregion. Chronic elevation of the left hemidiaphragm again noted. VISUALIZED UPPER ABDOMEN: Small spleen containing a small calcifiedgra nuloma. OSSEOUS STRUCTURES AND SOFT TISSUES: Moderate scoliosis. Spina bifidaocculta at T5. Severe chronic deformity of the left shoulder joint withreabsorption of the humeral head and fragmentation.Similar milder changes,partially imaged in the right shoulder. Limited study for the evaluation ofacute fracturesUnHeart Hospital of AustinXR CHEST 1 [id number] 16:14:52EXAM: XR CHEST 1 VW COMPARISON: 11/27/2023 HISTORY: pneumothorax serial xrayUnHeart Hospital of AustinXR CHEST 1 [id number] 15:03:23EXAM: XR CHEST 1 VW COMPARISON: 11/27/2023 HISTORY: pneumothoraxUnHeart Hospital of AustinBasi Metabolic Panel (NA, K, CL, CO2, GLUCOSE, BUN, CREATININE, CA)2023-11-28 08:57:49* Test Item Value Reference Range Interpretation Comme nts NA (test code = 4586452516) 137 mmol/L 135-145 K (test code = 4388941164) 4.2 mmol/L 3.5-5.0 CL (test code = 0978129295) 101 mmol/L 98-108 CO2 TOTAL (test code = 9216535456) 34 mmol/L 23-31 H AGAP (test code = 5713115433) 2 2-16 BUN (test code = 3394506623) 14 mg/dL 7-23 GLUCOSE (test code = 5697687166) 102 mg/dL 70-110 CREATININE (test code = 7018340150) 0.30 mg/dL 0.50-1.04 L CALCIUM (test code = 5860158314) 8.9 mg/dL 8.6-10.6 eGFR (test code = 68747-5) 118.6 mL/min/1.73m2 CKD-EPI eGFR (2020). Assuming creatinine has been stable day-to-day for at least three months, the eGFR indicates Category G1 (>= 90 mL/min/1.73 m2) Lab Interpretation (test code = 69811-3) Abnormal [facility] HospitalMagnesium2024-[facility] 08:57:49* Test Item Value Reference Range Interpretation Comme nts MAGNESIUM (test code = 7573728519) 1.9 mg/dL 1.7-2.4 Lab Interpretation (test cod e = 27958-5) Normal [facility] Cagw9734-20-25 08:36:10* Test Item Value Reference Range Interpretation Comme nts WBC (test code = 6690-2) 8.42 See_Comment [Automated messa ge] The system which generated this result transmitted reference range: 4.30 - 11.10 10*3/?L. The reference range was not used to interpret this result as normal/abnormal. RBC (test code = 789-8) 3.97 See_Comment [Automated messa ge] The system which generated this result transmitted reference range: 3.93 - 5.25 10*6/?L. The reference range was not used to interpret this result as normal/abnormal. HGB (test code = 718-7) 12.5 g/dL 11.6-15.0 HCT (test code = 4544-3) 38.2 % 35.7-45.2 MCV (test code = 787-2) 96.2 fL 80.6-95.5 H MCH (test code = 785-6) 31.5 pg 25.9-32.8 MCHC (test code = 786-4) 32.7 g/dL 31.6-35.1 RDW-SD (test code = 05670-0) 47.1 fL 39.0-49.9 RDW-CV (test code = 788-0) 13.2 % 12.0-15.5 PLT (test code = 777-3) 296 See_Comment [Automated messa ge] The system which generated this result transmitted reference range: 166 - 358 10*3/?L. The reference range was not used to interpret this result as normal/abnormal. MPV (test code = 84000-1) 10.4 fL 9.5-12.9 NRBC/100 WBC (test code = 6596577105) 0.0 See_Comment [Automated [employer] ssage] The system which generated this result transmitted reference range: 0.0 - 10.0 /100 WBCs. The reference range was not used to interpret this result as normal/abnormal. NRBC x10^3 (test code = 7872331349) See_Comment [Automated messa ge] The system which generated this result transmitted reference range: 10*3/?L. The reference range was not used to interpret this result as normal/abnormal. GRAN MAT (NEUT) % (test code = 770-8) 65.8 % IMM GRAN % (test code = 8877695434) 0.40 % LYMPH % (test code = 736-9) 18.3 % MONO % (test code = 5905-5) 11.6 % EOS % (test code = 713-8) 3.3 % BASO % (test code = 706-2) 0.6 % GRAN MAT x10^3(ANC) (test code = 8730223548) 5.54 10*3/uL 1.88-7.09 IMM GRAN x10^3 (test code = 6691634335) 0.03 10*3/uL 0.00-0.06 LYMPH x10^3 (test code = 731-0) 1.54 10*3/uL 1.32-3.29 MONO x10^3 (test code = 742-7) 0.98 10*3/uL 0.33-0.92 H EOS x10^3 (test code = 711-2) 0.28 10*3/uL 0.03-0.39 BASO x10^3 (test code = 704-7) 0.05 10*3/uL 0.01-0.07 Lab Interpretation (test code = 18747-3) Abnormal [facility] HospitalRADRPT2023-11-15 15:26:23* Test Item Value Reference Range Interpretation Comme nts RADRPT (test code = RADRPT) EXAM: XR LEFT WRIST 3 VIEWSDATE: 09/14/2023 5:34INDICATION: - Fracture follow upCOMPARISON: 09/07/2023 left wrist x-rayTECHNIQUE: 3 views of the wristFINDINGS:Similar alignment of the comminuted and displaced intra-articular distal radial fracture as well as the comminuted and displaced distal ulnar fractures. No appreciable callus formation.Overlying cast limits soft tissue assessment.IMPRESSION: 1. Similar alignment of the intra-articular distal radial fracture and the distal ulna diaphyseal fractures. No appreciable callus formation. [facility] CenterBiydtdsMOBNOVHKDN7282-94-54 08:42:00* Test Item Value Reference Range Interpretation Comme nts Anti-Xa Low Molecular Hepari n (test code = Anti-Xa Low Molecular Heparin) 0.25 [facility] HospitalYkulqhcZNJIGSOED7255-94-08 08:21:00* Test Item Value Reference Range Interpretation Comme [facility] Glucose Lvl (test code = Glucose Lvl) 89 70-99 BUN (test code = BUN) 13 7-22 Creatinine Lvl (test code = Creatinine Lvl) 0.40 0.50-1.40 Sodium Lvl (test code = Sodium Lvl) 142 135-145 Potassium Lvl (test code = P otassium Lvl) 3.7 3.5-5.1 Chloride Lvl (test code = Chloride Lvl) 105 95-109 CO2 (test code = CO2) 30 24-32 Calcium Lvl (test code = Calcium Lvl) 9.0 8.5-10.5 AGAP (test code = AGAP) 10.7 10.0-20.0 eGFR (test code = eGFR) 111 Magnesium Lvl (test code = M agnesium Lvl) 2.1 1.8-2.4 Phosphorus (test code = Phosphorus) 3.7 2.5-4.5 [facility] CenterOghcwhmVTJZERUPBA5844-46-24 08:21:00* Test Item Value Reference Range Interpretation Comme [facility] WBC (test code = WBC) 5.0 3.7-10.4 RBC (test code = RBC) 3.87 4.20-5.40 Hgb (test code = Hgb) 12.1 12.0-16.0 Hct (test code = Hct) 36.6 36.0-48.0 MCV (test code = MCV) 94.6 80.0-98.0 MCH (test code = MCH) 31.2 pg 27.0-31.0 MCHC (test code = MCHC) 33.0 32.0-36.0 RDW (test code = RDW) 13.6 11.5-14.5 Platelet (test code = Platelet) 206 133-450 MPV (test code = MPV) 8.7 7.4-10.4 Segs (test code = Segs) 53.6 45.0-75.0 Lymphocytes (test code = Lymphocytes) 27.8 20.0-40.0 Monocytes (test code = Monocytes) 12.4 2.0-12.0 Eosinophils (test code = Eosinophils) 4.8 <=4.0 Basophils (test code = Basophils) 1.4 <=1.0 Neutrophils # (test code = Neutrophils #) 2.7 1.5-8.1 Lymphocytes # (test code = Lymphocytes #) 1.4 1.0-5.5 Monocytes # (test code = Monocytes #) 0.6 <=0.8 Eosinophils # (test code = Eosinophils #) 0.2 <=0.5 Basophils # (test code = Basophils #) 0.1 <=0.2 [facility] CenterRexxuteMBULNN8906-75-84 19:49:51* Test Item Value Reference Range Interpretation [facility] RADRPT (test code = RADRPT) EXAM: XR CHEST 1 VIEWDATE: 09/09/2023, 13:47.Age: 62 years y/o FemaleINDICATION: - 2 hours s/p CT removalCOMPARISON: Prior same-day radiograph.TECHNIQUE: AP chest.IMPRESSION: Lines/tubes: Right chest tube has been removed.Heart and mediastinum: The cardiomediastinal silhouette is stable. Aortic vascular wall calcifications are noted. Lungs: Persistent elevation of the left hemidiaphragm. Grossly unchanged patchy airspace opacities throughout the right lung, may be related to infection or aspiration.Pleura: The costophrenic sulci are sharp without evidence of pleural effusion. No pneumothorax is identified on this portable radiograph.Musculoskeletal: The regional skeleton is unchanged. [facility] CenterZgwywxbUBSQUK6561-45-44 18:53:18* Test Item Value Reference Range Interpretation [facility] RADRPT (test code = RADRPT) EXAM: XR CHEST 1 VIEWDATE: 09/09/2023 2:46INDICATION: Respiratory distress - PTXCOMPARISON: Chest x-ray dated 09/08/2023TECHNIQUE: AP chest.IMPRESSION: Lines/tubes: Right-sided chest tube extending to the right apex is again noted.Heart and mediastinum: Cardiomediastinal silhouette is slightly shifted to the right could be related to thoracic scoliosis.Lungs and pleura: Background emphysematous changes are again noted. Right and lower lung zone airspace opacities slightly improved compared to prior study and better characterized on admission CT. No perceptible residual pneumothorax. No definite pleural effusion. Left hemidiaphragm is elevated..Osseous structures and soft tissues: Osseous structures are with S-shaped thoracic scoliosis and severe degenerative changes in the left glenohumeral joint with humeral head resorption/deformity. [facility] CenterXgquqseUUZEDR9915-24-82 20:31:11* Test Item Value Reference Range Interpretation [facility] (test code = RADRPT) EXAM: XR CHEST 1 VIEWDATE: 09/08/2023 14:14INDICATION: - [address] [facility]: Chest x-ray dated 09/08/2023TECHNIQUE: AP chest.IMPRESSION: Lines/tubes: Right-sided chest tube extending to the apex is again noted, unchanged.Heart and mediastinum: Cardiomediastinal silhouette is slightly shifted to the right could be related to thoracic scoliosis.Lungs and pleura: Background emphysematous changes are again noted. Right and lower lung zone airspace opacities not significantly changed compared to prior study and better characterized on admission CT. No perceptible residual pneumothorax. No definite pleural effusion. Left hemidiaphragm is elevated..Osseous structures and soft tissues: Osseous structures are with S-shaped thoracic scoliosis and severe degenerative changes in the left glenohumeral joint with humeral head resorption/deformity. [facility] CenterQlbuspsTPYVPR7146-51-19 13:42:44* Test Item Value Reference Range Interpretation [facility] RAD[facility] (test code = RADRPT) EXAM: XR CHEST 1 VIEWDATE: 09/08/2023 3:06INDICATION: - OK CT in placeCOMPARISON: 09/07/2023TECHNIQUE: AP chestIMPRESSION: Stable right-sided chest tube. Positional rightward shift of the cardiomediastinal silhouette secondary to scoliotic curvature. In a background of emphysema persistent asymmetric to the right airspace opacities as characterized on admission CT chest. Small residual right pneumothorax. Trace right pleural effusion. Regional skeleton is unchanged. [facility] CenterYzwvzjoXDHVIL3402-81-07 13:17:50* Test Item Value Reference Range Interpretation [facility] RAD[facility] (test code = RADRPT) EXAM: MRI BRAIN WITH AND WITHOUT CONTRASTDATE: 09/08/2023INDICATION: - acute vs subacute lesion. Patient with history of ground level fall.COMPARISON: CT head without contrast dated September 07, 2023.TECHNIQUE: Multiplanar, multisequence MRI of the brain with and without contrast. Motion degraded examination which was terminated early.IV contrast: Refer to geospatial information technologist documentationFINDINGS:There is no definite mass lesion or recent ischemic change. There is encephalomalacia with gyriform mineral deposits and surrounding gliosis corresponding to the hypodense areas seen on the comparison CT in the right parietal lobe. Areas of encephalomalacia in the right temporal abd occipital lobes are also demonstrated. Scattered periventricular, T2-FLAIR hyperintensities most consistent with moderate chronic microvascular ischemic changes. The ventricles and sulcal spaces are enlarged due to central brain parenchymal volume loss. The intracranial arterial and venous structures demonstrate normal flow voids.The included paranasal sinuses and skull base are unremarkable.IMPRESSION: 1. Motion degraded examination resulting in a limited study. Within the limitations of this examination there is no evidence of recent ischemia. 2. Remote hemorrhagic insult in the right parietal lobe.3. Encephalomalacia right temporal and occipital lobes.4. Chronic changes. [facility] HospitalOgbgeyuDMHTYH4558-40-42 01:04:41* Test Item Value Reference Range Interpretation Comme nts RADRPT (test code = RADRPT) EXAM: XR CHEST 1 VIEWDATE: 09/07/2023 18:20 INDICATION: - CT in placeCOMPARISON: Chest radiograph from 09/07/2023 at 0409TECHNIQUE: AP chest.UT SECTION: ERFINDINGS:Lines, tubes and hardware: Chest tube in place with tip projecting over the right apex.Lungs and pleura: Persistent pulmonary opacities in the right lung without significant interval change. The costophrenic sulci are sharp without effusion. No perceptible pneumothorax.Bulla present at the right apex.Mild elevation of the left hemidiaphragm noted.Heart and mediastinum: The heart size is normal. The mediastinal contours are stable. Bones and soft tissues: No acute abnormality.Diffuse osteopenia noted.Scoliosis noted.Severe arthropathy of the left glenohumeral joint with deformity.IMPRESSION: No perceptible pneumothorax.Stable position of the right-sided chest tube.Diffuse right pulmonary opacity within the reexpanded right lung may suggest contusion, edema, infection and/or aspiration. [facility] HospitalOmifpahTATFNW1707-35-55 10:58:49* Test Item Value Reference Range Interpretation Comme nts RADRPT (test code = RADRPT) EXAM: XR CHEST 1 VIEWDATE: 09/07/2023 4:05 INDICATION: - eval R PTXCOMPARISON: 09/06/2023TECHNIQUE: AP chest.FINDINGS:Lines, tubes and hardware: Right-sided chest tube is again noted.Lungs and pleura: Continued improvement of the reexpansion of the right lung. The right pneumothorax is no longer visualized. Persistent pulmonary opacities within the right lung.Heart and mediastinum: The cardiomediastinal contours are unchanged. Atherosclerotic calcifications of the thoracic aorta.Bones and soft tissues: The bones are unchanged.IMPRESSION: 1. Continued improvement of the reexpansion of the right lung with diffuse pulmonary opacity within the right lung may represent pulmonary contusion, reexpansion pulmonary edema or aspiration.2. The right pneumothorax is no longer visualized.3. Otherwise no significant change from the prior examination. [facility] CenterBpizaoyKHERVF7897-43-63 10:56:27* Test Item Value Reference Range Interpretation Comme [facility] RADRPT (test code = RADRPT) EXAM: XR LEFT WRIST 3 VIEWSDATE: 09/07/2023 4:05INDICATION: - post splintCOMPARISON: 09/06/2023TECHNIQUE: 3 views of the wristFINDINGS/IMPRESSION : Interval placement of a cast/splint which limits evaluation of fine bony detail. The comminuted, intra-articular fracture of the distal left radius is again noted with improved anatomic alignment. Comminuted fracture of the distal left ulnar diaphysis is unchanged. Soft tissue swelling of the left wrist/distal forearm. [facility] CenterNsnodmyUNLBPU1245-09-28 10:21:00* Test Item Value Reference Range Interpretation Comme [facility] RADRPT (test code = RADRPT) EXAM: CT CHEST WITH CONTRASTEXAM: CT ABDOMEN AND PELVIS WITH CONTRASTDATE: 09/07/2023 1:44 INDICATION: - pain after GLF COMPARISON: Chest radiograph from 09/06/2023TECHNIQUE: Volumetric CT of the chest, abdomen and pelvis is acquired following intravenous administration of contrast. Axial, coronal and sagittal images are provided.IV contrast: Refer to MAR/technologist documentationOral contrast: None.DLP: Refer to CT protocol formUT SECTION: ERFINDINGS: Management Engineer: Noncontributory.Lines and tubes: Right lateral approach chest tube with the tip terminating at the right lung apexLower Neck: Supraclavicular soft tissues are within normal limits.Thoracic Aorta and Mediastinum: No mediastinal hematoma or thoracic aortic injury. Normal heart and pericardium. Lungs, Pleura, Diaphragm: Relative to the initial chest radiograph from 09/06/2023 there is improvement in the large right pneumothorax, which is now small in size. Biapical paraseptal and centrilobular emphysematous changes. Trace right pleural effusion. Subsegmental atelectasis within the right lung.Liver and biliary tree: No injury.Gallbladder: No injury.Pancreas: No injury.Spleen: No injury.Adrenals: No injury.Kidneys and ureters: No injury. Bilateral subcentimeter cortical renal cysts. There is symmetric excretion of contrast on delayed phase images.Bladder: No injury. Distended with urine.Reproductive organs: No injury.Gastrointestinal tract: No injury.Peritoneum and retroperitoneum: No fluid collections or free air.Lymph nodes: Normal.Vasculature: No vascular injury.Spine/ Bones: No acute abnormality of the spine. No other bony injury.Dextroscoliosis of the spine with the apex centered within the upper lumbar spine. Multilevel degenerative changes.Grade 1 anterolisthesis of L4 on L5.Severe degenerative changes of the left shoulder.Soft tissues: Punctate foci of fat stranding within the left gluteal soft tissues likely represent small contusions.IMPRESSION: 1. Small right pneumothorax with satisfactory positioning of a right lateral approach chest tube with the tip terminating at the right lung apex. No adjacent rib fractures are seen.2. Pulmonary opacity could represent reexpansion pulmonary edema, pulmonary contusion, pulmonary hemorrhage or atelectasis within the right lung with bilateral paraseptal and centrilobular emphysematous changes noted.3. Trace right pleural effusion with associated passive atelectasis.4. Punctate foci of fat stranding within the left gluteal soft tissues likely represent small contusions.5. No visceral organ injury within the abdomen or pelvis. [facility] AtlantaICILLIN:SUSC:PT:ISOLATE:ORDQN:[id number] 08:25:00* Test Item Value Reference Range Interpretation Comme nts Culture: Urine (test code = Culture: Urine) >100,000 CFU/mL Enterococcus Species . 10,000 - 50,000 CFU/mL Klebsiella pneumoniae ssp pneumoniae Klebsiella pneumoniae ssp pneumoniae (test code = Klebsiella pneumoniae ssp pneumoniae) Klebsiella pneumoniae ssp pneumoniae Enterococcus Species (test code = Enterococcus Species) Enterococcus Species [facility]ZzvxqfmYKJLTOWDQ2525-07-40 07:31:00* Test Item Value Reference Range Interpretation Comme nts U Amph Scr (test code = U Amph Scr) Negative *NA*(09/07/23 1:31 AM) U Karen Scr (test code = U Karen Scr) Positive *ABN*(09/07/23 1:31 AM) U Benzodiaz Scr (test code = U Benzodiaz Scr) Negative *NA*(09/07/23 1:31 AM) U Cocaine Scr (test code = U Cocaine Scr) Negative *NA*(09/07/23 1:31 AM) U Cannab Scr (test code = U Cannab Scr) Negative *NA*(09/07/23 1:31 AM) U Opiate Scr (test code = U Opiate Scr) Positive *ABN*(09/07/23 1:31 AM) U Phencyclidine Scr (test code = U Phencyclidine Scr) Negative *NA*(09/07/23 1:31 AM) UDS Note (test code = UDS Note) See Note 3(09/07/23 1:31 AM) [facility]2023-11-08 07:31:00* Test Item Value Reference Range Interpretation Comme nts UA Blood (test code = UA Blood) Small *ABN*(09/07/23 1:31 AM) UA Nitrite (test code = UA Nitrite) Positive *ABN*(09/07/23 1:31 AM) UA Color (test code = UA Color) Marsha *ABN*(09/07/23 1:31 AM) UA Turbidity (test code = UA Turbidity) Marked *ABN*(09/07/23 1:31 AM) UA Spec Grav (test code = UA Spec Grav) 1.020 1 UA pH (test code = UA pH) 5.0 1 5.0-8.0 UA Protein (test code = UA Protein) Negative mg/dL UA Glucose (test code = UA Glucose) Negative mg/dL UA Ketones (test code = UA Ketones) Trace mg/dL UA Bili (test code = UA Bili) Negative *NA*(09/07/23 1:31 AM) UA Urobilinogen (test code = UA Urobilinogen) no gt 0.1-1.0 UA Leuk Est (test code = UA Leuk Est) Large *ABN*(09/07/23 1:31 AM) UA Ascorbic Acid (test code = UA Ascorbic Acid) Negative 7*NA*(09/07/23 1:31 AM) UA Sq Epi (test code = UA Sq Epi) Many /LPF UA WBC (test code = UA WBC) 64 <=5 UA RBC (test code = UA RBC) 20 <=2 UA Bacteria (test code = UA Bacteria) Few /HPF UA Mucus (test code = UA Mucus) Few /LPF UA Hyal Cast (test code = UA Hyal Cast) 8 <=2 [facility] HospitalAzzntpmWHJQNWSCF4719-00-32 04:43:00* Test Item Value Reference Range Interpretation Comme nts pH Unruly (test code = pH Unruly) 7.32 1 7.28-7.42 pCO2 Unruly (test code = pCO2 Unruly) 59 38-52 pO2 Unruly (test code = pO2 Unruly) 53 20-49 HCO3 Unruly (test code = HCO3 Unruly) 30 22-26 BE Unruly (test code = BE Unruly) 3 -2-2 O2 Sat Unruly (calc) (test code = O2 Sat Unruly (calc)) 84.0 40.0-70.0 Temp Unruly (test code = Temp Unruly) 37.0 [facility] HospitalVmhjapvQQIKLLJVC5762-82-99 04:16:00* Test Item Value Reference Range Interpretation Comme nts Lactic Acid Lvl (test code = Lactic Acid Lvl) 0.7 0.5-2.2 [facility] HospitalBgozfiiXCQNFIBOGX6770-67-19 04:16:00* Test Item Value Reference Range Interpretation Comme nts PT (test code = PT) 13.3 s 12.0-14.7 PTT (test code = PTT) 23.2 s 22.9-35.8 INR (test code = INR) 1.01 1 0.85-1.17 ACT (TEG) Rapid (test code = ACT (TEG) Rapid) 82 s 86-118 Split Point Rapid (test code = Split Point Rapid) 0.2 min R-time Rapid (test code = R- time Rapid) 0.3 min 0.4-0.7 K-time Rapid (test code = K- time Rapid) 1.0 min 0.6-2.3 Angle Rapid (test code = Ang le Rapid) 78 degrees 64-80 Max Amplitude Rapid (test co de = Max Amplitude Rapid) 71 mm 52-71 G-value Rapid (test code = G -value Rapid) 12.5 5.0-11.6 Estimated % Lysis Rapid (jonnie t code = Estimated % Lysis Rapid) 0.0 <=7.5 [facility] [id number] 03:40:00* Test Item Value Reference Range Interpretation Comme nts ABO/Rh (test code = ABO/Rh) O POS Antibody Scrn (test code = Antibody Scrn) Negative (09/06/23 9:40 PM) [facility]-Glucose [id number] 17:59:34* Test Item Value Reference Range Interpretation Comme nts POC-Glucose Meter (test code = 1538) 110 mg/dL 70-110 : TESTED AT [address], [address]: Care Connector/Scanning Supervisor ID = [id number] for Moira Skaggs Lab Interpretation (test code = 86844-1) [facility] [id number] 17:59:34* Test Item Value Reference Range Interpretation Comme nts POC-GLUCOSE METER (BEAKER) (test code = 1538) 110 mg/dL 70-110 : TESTED AT [address], [address]: Care Connector/Scanning Supervisor ID = [id number] for Moira Skaggs POCT-GLUCOSE [id number] 12:36:47* Test Item Value Reference Range Interpretation Comme nts POC-GLUCOSE METER (BEAKER) (test code = 1538) 106 mg/dL 70-110 : TESTED AT [address], [address]: Care Connector/Scanning Supervisor ID = [id number] for Moira Skaggs BASIC METABOLIC [id number] 06:00:47* Test Item Value Reference Range Interpretation Comme nts SODIUM (BEAKER) (test code = 381) 138 meq/L 136-145 POTASSIUM (BEAKER) (test code = 379) 3.9 meq/L 3.5-5.1 CHLORIDE (BEAKER) (test code = 382) 102 meq/L 98-107 CO2 (BEAKER) (test code = 355) 25 meq/L 22-29 BLOOD UREA NITROGEN (BEAKER) (test code = 354) 7 mg/dL 7-21 CREATININE (BEAKER) (test code = 358) 0.52 mg/dL 0.57-1.25 L GLUCOSE RANDOM (BEAKER) (test code = 652) 113 mg/dL 70-105 H CALCIUM (BEAKER) (test code = 697) 8.0 mg/dL 8.4-10.2 L EGFR (BEAKER) (test code = 1092) 104 mL/min/1.73 sq m Interpretation of eG FR values Stage Description Result G1 Normal or high >=90 G2 Mildly decreased 60-89 G3a Mildly to moderately 45-59 G3b Moderately to severely 30-44 G4 Severly decreased 15-29 G5 Kidney failure <15Reported eGFR is based on the CKD-EPI 2020 equation that does not use a race coefficientEstimated GFR is not as accurate as Creatinine Clearance in predicting glomerular filtration rate. Estimated GFR is not applicable for dialysis patients Care Connector ID - MMCBC (HEMOGRAM ONLY)2023-03-31 05:46:32* Test Item Value Reference Range Interpretation Comme nts WHITE BLOOD CELL COUNT (BEAKER) (test code = 775) 13.4 K/ L 3.5-10.5 H RED BLOOD CELL COUNT (BEAKER) (test code = 761) 3.64 M/ L 3.93-5.22 L HEMOGLOBIN (BEAKER) (test code = 410) 11.5 GM/DL 11.2-15.7 HEMATOCRIT (BEAKER) (test code = 411) 36.0 % 34.1-44.9 MEAN CORPUSCULAR VOLUME (BEAKER) (test code = 753) 99 fL 79-95 H Discordant resul ts compared to previous results; clinical correlation required MEAN CORPUSCULAR HEMOGLOBIN (BEAKER) (test code = 751) 31.6 pg 25.6-32.2 MEAN CORPUSCULAR HEMOGLOBIN CONC (BEAKER) (test code = 752) 31.9 GM/DL 32.2-35.5 L RED CELL DISTRIBUTION WIDTH (BEAKER) (test code = 412) 12.5 % 11.7-14.4 PLATELET COUNT (BEAKER) (test code = 756) 241 K/CU MM 150-450 MEAN PLATELET VOLUME (BEAKER) (test code = 754) 10.7 fL 9.4-12.3 NUCLEATED RED BLOOD CELLS (BEAKER) (test code = 413) 0 /100 WBC 0-0 POCT-GLUCOSE [id number] 21:48:06* Test Item Value Reference Range Interpretation Comme nts POC-GLUCOSE METER (BEAKER) (test code = 1538) 96 mg/dL 70-110 : TESTED AT [facility] [address] [facility], [address]: Care Connector/Scanning Supervisor ID = [id number] for BRAVO SANCHEZ POCT-GLUCOSE [id number] 18:04:01* Test Item Value Reference Range Interpretation Comme nts POC-GLUCOSE METER (BEAKER) (test code = 1538) 91 mg/dL 70-110 : TESTED AT [facility] [address] [facility], [address]: Care Connector/Scanning Supervisor ID = [id number] for Ambika Bullard MR, MRA, BRAIN, WITHOUT [id number] 12:55:00Add SWI for CAA eval WITH GENERAL ANESTHESIA Unlisted Reason for Exam - Click Yes and Enter Reason Below- >Yes Unlisted Reason for Exam->traumatic ICH, eval for underlying pathology [facility] : 1960 Sex: FFINAL REPORT MR, BRAIN, WITH \\T\\ WITHOUT CONTRAST, MR, MRA, NECK, WITHOUT IV CONTRAST, MR, MRA, BRAIN, WITHOUT CONTRAST INDICATION: Head trauma, intracranial arterial injury suspectedUnlisted Reason for Exam; traumatic ICH, eval for other underlying pathology TECHNIQUE: Multiplanar, multisequence MR images of the brain. 3-D time of flight MRA of the cranial and cervical circulation.2-D time of flight MRA of the neck. 3D MIP angiographic post- processing was performed. Stenosis evaluation utilized NASCET criteria. COMPARISON: 03/26/2023 FINDINGS: MRI BRAIN: Unchanged appearance ofpreviously described intraparenchymal hematoma within the right parietal lobe, which measures up to4.8 cm. There is mild localized mass effect without midline shift or herniation. Scattered additional foci of susceptibility throughout the right cerebral hemisphere, presumably related to the aforementioned primary hematoma. No new acute intracranial hemorrhage. No restricted diffusion to suggest recent infarct. No enhancing intracranial metastases. No abnormal parenchymal enhancement. ScatteredT2/FLAIR hyperintense foci within the periventricular and subcortical white matter are nonspecific,however, statistically represent chronic microvascular ischemic changes. No hydrocephalus. Orbits are within normal limits. No obstructive paranasal sinus disease. 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 MRA BRAIN:Internal carotid arteries: Normal flow related enhancement without flow- limiting stenosisMiddle cerebral arteries: Normal flow [...] the right posterior cerebral artery. Functional -type BAGGAGEMASTER on the left. Additional findings: None. MRA NECK:Common carotid arteries: Unremarkable. Cervical internal carotid arteries: 50% stenosis of the left proximal ICA by NASCET criteria. No flow limiting stenosis.Vertebral arteries: Origins are not well- seen. No flow limiting stenosis within the visualized cervical vertebral arterial segments. Limited assessmentof the V3 segment secondary to noncontrast technique. IMPRESSION: 1.Unchanged appearance of previously described intraparenchymal hematoma within the right parietal lobe, which measures up to 4.8 cm.There is mild localized mass effect without midline shift or herniation. Scattered additional foci of susceptibility throughout the right cerebral hemisphere, presumably related to the aforementionedprimary hematoma.2.No new acute intracranial hemorrhage.3.No enhancing intracranial metastases. No a bnormal parenchymal enhancement.4.50% stenosis of the left proximal ICA by NASCET criteria.5.Multiple short segment areas of moderate atherosclerotic stenosis of the right posterior cerebral artery. Signed: Beverly Jules [facility] Verified Date/Time: 03/30/2023 12:55:12 MR, MRA, NECK, WITHOUT IV CONTRAST 2023-03-30 12:55:00WITH GENERAL ANESTHESIA Unlisted Reason for Exam - Click Yes and Enter Reason Below->Yes Unlisted Reason for Exam->traumatic ICH, eval for underlying pathology Does the patient have an implanted electronic device?->No [facility] : 1960 Sex: FFINAL REPORT MR, BRAIN, WITH \\T\\ WITHOUT CONTRAST, MR, MRA, NECK, WITHOUT IV CONTRAST, MR, MRA, BRAIN, WITHOUT CONTRAST INDICATION: Head trauma, intracranial arterial injury suspectedUnlisted Reason for Exam; traumatic ICH, eval for other underlying pathology TECHNIQUE: Multiplanar, multisequence MR images of the brain. 3-D time of flight MRA of the cranial and cervical circulation.2-D time of flight MRA of the neck. 3D MIP angiographic post- processing was performed. Stenosis evaluation utilized NASCET criteria. COMPARISON: 03/26/2023 FINDINGS: MRI BRAIN: Unchanged appearance ofpreviously described intraparenchymal hematoma within the right parietal lobe, which measures up to4.8 cm. There is mild localized mass effect without midline shift or herniation. Scattered additional foci of susceptibility throughout the right cerebral hemisphere, presumably related to the aforementioned primary hematoma. No new acute intracranial hemorrhage. No restricted diffusion to suggest recent infarct. No enhancing intracranial metastases. No abnormal parenchymal enhancement. ScatteredT2/FLAIR hyperintense foci within the periventricular and subcortical white matter are nonspecific,however, statistically represent chronic microvascular ischemic changes. No hydrocephalus. Orbits are within normal limits. No obstructive paranasal sinus disease. 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 MRA BRAIN:Internal carotid arteries: Normal flow related enhancement without flow- limiting stenosisMiddle cerebral arteries: Normal flow [...] the right posterior cerebral artery. Functional -type BAGGAGEMASTER on the left. Additional findings: None. MRA NECK:Common carotid arteries: Unremarkable. Cervical internal carotid arteries: 50% stenosis of the left proximal ICA by NASCET criteria. No flow limiting stenosis.Vertebral arteries: Origins are not well- seen. No flow limiting stenosis within the visualized cervical vertebral arterial segments. Limited assessmentof the V3 segment secondary to noncontrast technique. IMPRESSION: 1.Unchanged appearance of previously described intraparenchymal hematoma within the right parietal lobe, which measures up to 4.8 cm.There is mild localized mass effect without midline shift or herniation. Scattered additional foci of susceptibility throughout the right cerebral hemisphere, presumably related to the aforementionedprimary hematoma.2.No new acute intracranial hemorrhage.3.No enhancing intracranial metastases. No a bnormal parenchymal enhancement.4.50% stenosis of the left proximal ICA by NASCET criteria.5.Multiple short segment areas of moderate atherosclerotic stenosis of the right posterior cerebral artery. Signed: Beverly Jules [facility] Verified Date/Time: 03/30/2023 12:55:12 , BRAIN, [id number] 12:55:00 Add SWI imaging for eval of CAA WITH General anesthesia Unlisted Reason for Exam - Click Yes and Enter Reason Below->Yes Unlisted Reason for Exam->traumatic ICH, eval for other underlying pathology Does the patient have an implanted electronic device?->No [facility] 1960 Sex: FFINAL REPORT MR, BRAIN, WITH \\T\\ WITHOUT CONTRAST, MR, MRA, NECK, WITHOUT IV CONTRAST, MR, MRA, BRAIN, WITHOUT CONTRAST INDICATION: Head trauma, intracranial arterial injury suspectedUnlisted Reason for Exam; traumatic ICH, eval for other underlying pathology TECHNIQUE: Multiplanar, multisequence MR images of the brain. 3-D time of flight MRA of the cranial and cervical circulation.2-D time of flight MRA of the neck. 3D MIP angiographic post- processing was performed. Stenosis evaluation utilized NASCET criteria. COMPARISON: 03/26/2023 FINDINGS: MRI BRAIN: Unchanged appearance ofpreviously described intraparenchymal hematoma within the right parietal lobe, which measures up to4.8 cm. There is mild localized mass effect without midline shift or herniation. Scattered additional foci of susceptibility throughout the right cerebral hemisphere, presumably related to the aforementioned primary hematoma. No new acute intracranial hemorrhage. No restricted diffusion to suggest recent infarct. No enhancing intracranial metastases. No abnormal parenchymal enhancement. ScatteredT2/FLAIR hyperintense foci within the periventricular and subcortical white matter are nonspecific,however, statistically represent chronic microvascular ischemic changes. No hydrocephalus. Orbits are within normal limits. No obstructive paranasal sinus disease. 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 MRA BRAIN:Internal carotid arteries: Normal flow related enhancement without flow- limiting stenosisMiddle cerebral arteries: Normal flow [...] the right posterior cerebral artery. Functional -type BAGGAGEMASTER on the left. Additional findings: None. MRA NECK:Common carotid arteries: Unremarkable. Cervical internal carotid arteries: 50% stenosis of the left proximal ICA by NASCET criteria. No flow limiting stenosis.Vertebral arteries: Origins are not well- seen. No flow limiting stenosis within the visualized cervical vertebral arterial segments. Limited assessmentof the V3 segment secondary to noncontrast technique. IMPRESSION: 1.Unchanged appearance of previously described intraparenchymal hematoma within the right parietal lobe, which measures up to 4.8 cm.There is mild localized mass effect without midline shift or herniation. Scattered additional foci of susceptibility throughout the right cerebral hemisphere, presumably related to the aforementionedprimary hematoma.2.No new acute intracranial hemorrhage.3.No enhancing intracranial metastases. No a bnormal parenchymal enhancement.4.50% stenosis of the left proximal ICA by NASCET criteria.5.Multiple short segment areas of moderate atherosclerotic stenosis of the right posterior cerebral artery. Signed: Beverly Jules [facility] Verified Date/Time: 03/30/2023 12:55:12 POCT-GLUCOSE [id number] 06:24:46* Test Item Value Reference Range Interpretation Comme nts POC-GLUCOSE METER (BEAKER) (test code = 1538) 114 mg/dL 70-110 H : TESTED AT [facility] [address] [facility], [address]: Care Connector/Scanning Supervisor ID = [id number] for Enid Renner BASIC METABOLIC [id number] 05:26:59* Test Item Value Reference Range Interpretation Comme nts SODIUM (BEAKER) (test code = 381) 139 meq/L 136-145 POTASSIUM (BEAKER) (test code = 379) 3.8 meq/L 3.5-5.1 CHLORIDE (BEAKER) (test code = 382) 104 meq/L 98-107 CO2 (BEAKER) (test code = 355) 26 meq/L 22-29 BLOOD UREA NITROGEN (BEAKER) (test code = 354) 9 mg/dL 7-21 CREATININE (BEAKER) (test code = 358) 0.49 mg/dL 0.57-1.25 L GLUCOSE RANDOM (BEAKER) (test code = 652) 138 mg/dL 70-105 H CALCIUM (BEAKER) (test code = 697) 8.2 mg/dL 8.4-10.2 L EGFR (BEAKER) (test code = 1092) 105 mL/min/1.73 sq m Interpretation of eG FR values Stage Description Result G1 Normal or high >=90 G2 Mildly decreased 60-89 G3a Mildly to moderately 45-59 G3b Moderately to severely 30-44 G4 Severly decreased 15-29 G5 Kidney failure <15Reported eGFR is based on the CKD-EPI 2020 equation that does not use a race coefficientEstimated GFR is not as accurate as Creatinine Clearance in predicting glomerular filtration rate. Estimated GFR is not applicable for dialysis patients Care Connector ID - MARCOCBC (HEMOGRAM ONLY)2023-03-30 05:16:25* Test Item Value Reference Range Interpretation Comme nts WHITE BLOOD CELL COUNT (BEAK ER) (test code = 775) 8.1 K/ L 3.5-10.5 RED BLOOD CELL COUNT (BEAKER ) (test code = 761) 3.87 M/ L 3.93-5.22 L HEMOGLOBIN (BEAKER) (test co de = 410) 12.1 GM/DL 11.2-15.7 HEMATOCRIT (BEAKER) (test co de = 411) 36.6 % 34.1-44.9 MEAN CORPUSCULAR VOLUME (LEYLA KER) (test code = 753) 95 fL 79-95 MEAN CORPUSCULAR HEMOGLOBIN (BEAKER) (test code = 751) 31.3 pg 25.6-32.2 MEAN CORPUSCULAR HEMOGLOBIN CONC (BEAKER) (test code = 752) 33.1 GM/DL 32.2-35.5 RED CELL DISTRIBUTION WIDTH (BEAKER) (test code = 412) 12.3 % 11.7-14.4 PLATELET COUNT (BEAKER) (jonnie t code = 756) 231 K/CU MM 150-450 MEAN PLATELET VOLUME (BEAKER ) (test code = 754) 10.3 fL 9.4-12.3 NUCLEATED RED BLOOD CELLS (BEAKER) (test code = 413) 0 /100 WBC 0-0 POCT-GLUCOSE [id number] 00:11:18* Test Item Value Reference Range Interpretation Comme nts POC-GLUCOSE METER (BEAKER) (test code = 1538) 151 mg/dL 70-110 H : TESTED AT [facility] [address] [facility] [facility], [address]: Care Connector/Scanning Supervisor ID = [id number] for Enid Renner POCT-GLUCOSE [id number] 16:27:51* Test Item Value Reference Range Interpretation Comme nts POC-GLUCOSE METER (BEAKER) (test code = 1538) 101 mg/dL 70-110 : TESTED AT [facility] [address] [facility], [address]: Care Connector/Scanning Supervisor ID = [id number] for KENNETH REYNA POCT-GLUCOSE [id number] 12:52:15* Test Item Value Reference Range Interpretation Comme nts POC-GLUCOSE METER (BEAKER) (test code = 1538) 208 mg/dL 70-110 H : TESTED AT [facility] [address] [facility] [facility], [address]: Care Connector/Scanning Supervisor ID = [id number] for KENNETH REYNA POCT-GLUCOSE [id number] 07:58:56* Test Item Value Reference Range Interpretation Comme nts POC-GLUCOSE METER (BEAKER) (test code = 1538) 107 mg/dL 70-110 : TESTED AT [facility] [address] [facility] [facility], [address]: Care Connector/Scanning Supervisor ID = [id number] for KENNETH REYNA CBC (HEMOGRAM ONLY)2023-03-29 06:55:32* Test Item Value Reference Range Interpretation Comme nts WHITE BLOOD CELL COUNT (BEAK ER) (test code = 775) 10.4 K/ L 3.5-10.5 RED BLOOD CELL COUNT (BEAKER ) (test code = 761) 4.04 M/ L 3.93-5.22 HEMOGLOBIN (BEAKER) (test co de = 410) 13.0 GM/DL 11.2-15.7 HEMATOCRIT (BEAKER) (test co de = 411) 38.8 % 34.1-44.9 MEAN CORPUSCULAR VOLUME (LEYLA KER) (test code = 753) 96 fL 79-95 H MEAN CORPUSCULAR HEMOGLOBIN (BEAKER) (test code = 751) 32.2 pg 25.6-32.2 MEAN CORPUSCULAR HEMOGLOBIN CONC (BEAKER) (test code = 752) 33.5 GM/DL 32.2-35.5 RED CELL DISTRIBUTION WIDTH (BEAKER) (test code = 412) 12.3 % 11.7-14.4 PLATELET COUNT (BEAKER) (jonnie t code = 756) 236 K/CU MM 150-450 MEAN PLATELET VOLUME (BEAKER ) (test code = 754) 11.1 fL 9.4-12.3 NUCLEATED RED BLOOD CELLS (BEAKER) (test code = 413) 0 /100 WBC 0-0 BASIC METABOLIC [id number] 05:28:55* Test Item Value Reference Range Interpretation Comme nts SODIUM (BEAKER) (test code = 381) 133 meq/L 136-145 L POTASSIUM (BEAKER) (test code = 379) 3.6 meq/L 3.5-5.1 CHLORIDE (BEAKER) (test code = 382) 97 meq/L 98-107 L CO2 (BEAKER) (test code = 355) 25 meq/L 22-29 BLOOD UREA NITROGEN (BEAKER) (test code = 354) 10 mg/dL 7-21 CREATININE (BEAKER) (test code = 358) 0.53 mg/dL 0.57-1.25 L GLUCOSE RANDOM (BEAKER) (test code = 652) 106 mg/dL 70-105 H CALCIUM (BEAKER) (test code = 697) 8.8 mg/dL 8.4-10.2 EGFR (BEAKER) (test code = 1092) 103 mL/min/1.73 sq m Interpretation of eG FR values Stage Description Result G1 Normal or high >=90 G2 Mildly decreased 60-89 G3a Mildly to moderately 45-59 G3b Moderately to severely 30-44 G4 Severly decreased 15-29 G5 Kidney failure <15Reported eGFR is based on the CKD-EPI 2020 equation that does not use a race coefficientEstimated GFR is not as accurate as Creatinine Clearance in predicting glomerular filtration rate. Estimated GFR is not applicable for dialysis patients Care Connector ID - JSPOCT-GLUCOSE [id number] 20:57:25* Test Item Value Reference Range Interpretation Comme nts POC-GLUCOSE METER (BEAKER) (test code = 1538) 141 mg/dL 70-110 H : TESTED AT [facility] [address] [facility], [address]: Care Connector/Scanning Supervisor ID = [id number] for Jud Enid POCT-GLUCOSE [id number] 18:06:07* Test Item Value Reference Range Interpretation Comme nts POC-GLUCOSE METER (BEAKER) (test code = 1538) 96 mg/dL 70-110 : TESTED AT [facility] [address] [facility], [address]: Care Connector/Scanning Supervisor ID = [id number] for KENNETH REYNA [id number] 13:15:29* Test Item Value Reference Range Interpretation Comme nts RPR SCREEN (BEAKER) (test co de = 420) Nonreactive Nonreactive POCT-GLUCOSE [id number] 12:53:54* Test Item Value Reference Range Interpretation Comme nts POC-GLUCOSE METER (BEAKER) (test code = 1538) 105 mg/dL 70-110 : TESTED AT [facility] [address] [facility], [address]: Care Connector/Scanning Supervisor ID = [id number] for KENNETH REYNA (CELLAVISION MANUAL DIFF)2023-03-28 09:05:17* Test Item Value Reference Range Interpretation Comme nts NEUTROPHILS - REL (CELLAVISION)(BEAKER) (test code = 2816) 74 % LYMPHOCYTES - REL (CELLAVISION)(BEAKER) (test code = 2817) 11 % MONOCYTES - REL (CELLAVISION)(BEAKER) (test code = 2818) 14 % EOSINOPHILS - REL (CELLAVISION)(BEAKER) (test code = 2819) 1 % NEUTROPHILS - ABS (CELLAVISION)(BEAKER) (test code = 2830) 7.92 K/ul 1.56-6.13 H LYMPHOCYTES - ABS (CELLAVISION)(BEAKER) (test code = 2831) 1.18 K/ul 1.18-3.74 MONOCYTES - ABS (CELLAVISION)(BEAKER) (test code = 2832) 1.50 K/uL 0.24-0.36 H EOSINOPHILS - ABS (CELLAVISION)(BEAKER) (test code = 2834) 0.11 K/uL 0.04-0.36 TOTAL COUNTED (BEAKER) (test code = 1351) 100 RBC MORPHOLOGY (BEAKER) (jonnie t code = 762) Normal WBC MORPHOLOGY (BEAKER) (jonnie t code = 487) Normal PLT MORPHOLOGY (BEAKER) (jonnie t code = 486) Normal POCT-GLUCOSE [id number] 07:51:59* Test Item Value Reference Range Interpretation Comme nts POC-GLUCOSE METER (BEAKER) (test code = 1538) 111 mg/dL 70-110 H : TESTED AT [facility] [address] [facility], [address]: Care Connector/Scanning Supervisor ID = [id number] for KENNETH REYNA BASIC METABOLIC [id number] 05:53:57* Test Item Value Reference Range Interpretation Comme nts SODIUM (BEAKER) (test code = 381) 136 meq/L 136-145 POTASSIUM (BEAKER) (test code = 379) 4.0 meq/L 3.5-5.1 CHLORIDE (BEAKER) (test code = 382) 99 meq/L 98-107 CO2 (BEAKER) (test code = 355) 22 meq/L 22-29 BLOOD UREA NITROGEN (BEAKER) (test code = 354) 6 mg/dL 7-21 L CREATININE (BEAKER) (test code = 358) 0.50 mg/dL 0.57-1.25 L GLUCOSE RANDOM (BEAKER) (test code = 652) 80 mg/dL 70-105 CALCIUM (BEAKER) (test code = 697) 8.5 mg/dL 8.4-10.2 EGFR (BEAKER) (test code = 1092) 105 mL/min/1.73 sq m Interpretation of eG FR values Stage Description Result G1 Normal or high >=90 G2 Mildly decreased 60-89 G3a Mildly to moderately 45-59 G3b Moderately to severely 30-44 G4 Severly decreased 15-29 G5 Kidney failure <15Reported eGFR is based on the CKD-EPI 2020 equation that does not use a race coefficientEstimated GFR is not as accurate as Creatinine Clearance in predicting glomerular filtration rate. Estimated GFR is not applicable for dialysis patients Care Connector ID - BRAVO WPOCT-GLUCOSE [id number] 05:38:54* Test Item Value Reference Range Interpretation Comme [facility] POC-GLUCOSE METER (BEAKER) (test code = 1538) 105 mg/dL 70-110 : TESTED AT [facility] [address] [facility], [address]: Care Connector/Scanning Supervisor ID = [id number] for KORINA MCLEAN CBC W/PLT COUNT & AUTO [id number] 05:24:09* Test Item Value Reference Range Interpretation Comme nts WHITE BLOOD CELL COUNT (BEAK ER) (test code = 775) 10.7 K/ L 3.5-10.5 H RED BLOOD CELL COUNT (BEAKER ) (test code = 761) 4.09 M/ L 3.93-5.22 HEMOGLOBIN (BEAKER) (test co de = 410) 13.1 GM/DL 11.2-15.7 HEMATOCRIT (BEAKER) (test co de = 411) 39.2 % 34.1-44.9 MEAN CORPUSCULAR VOLUME (LEYLA KER) (test code = 753) 96 fL 79-95 H MEAN CORPUSCULAR HEMOGLOBIN (BEAKER) (test code = 751) 32.0 pg 25.6-32.2 MEAN CORPUSCULAR HEMOGLOBIN CONC (BEAKER) (test code = 752) 33.4 GM/DL 32.2-35.5 RED CELL DISTRIBUTION WIDTH (BEAKER) (test code = 412) 12.2 % 11.7-14.4 PLATELET COUNT (BEAKER) (jonnie t code = 756) 221 K/CU MM 150-450 MEAN PLATELET VOLUME (BEAKER ) (test code = 754) 11.1 fL 9.4-12.3 NUCLEATED RED BLOOD CELLS (BEAKER) (test code = 413) 0 /100 WBC 0-0 POCT-GLUCOSE [id number] 23:50:00* Test Item Value Reference Range Interpretation Comme nts POC-GLUCOSE METER (BEAKER) (test code = 1538) 97 mg/dL 70-110 : TESTED AT [address], [address]: Care Connector/Scanning Supervisor ID = [id number] for KORINA MCLEAN POCT-GLUCOSE [id number] 18:44:33* Test Item Value Reference Range Interpretation Comme nts POC-GLUCOSE METER (BEAKER) (test code = 1538) 94 mg/dL 70-110 : TESTED AT [address], [address]: Care Connector/Scanning Supervisor ID = [id number] for Moira Skaggs POCT-GLUCOSE [id number] 12:16:03* Test Item Value Reference Range Interpretation Comme nts POC-GLUCOSE METER (BEAKER) (test code = 1538) 99 mg/dL 70-110 : TESTED AT [address], [address]: Care Connector/Scanning Supervisor ID = [id number] for BRIAN SALINAS POCT-GLUCOSE [id number] 07:26:24* Test Item Value Reference Range Interpretation Comme nts POC-GLUCOSE METER (BEAKER) (test code = 1538) 102 mg/dL 70-110 : TESTED AT [address], [address]: Care Connector/Scanning Supervisor ID = [id number] for MAGALI DORMAN BASIC METABOLIC [id number] 04:10:01* Test Item Value Reference Range Interpretation Comme nts SODIUM (BEAKER) (test code = 381) 134 meq/L 136-145 L POTASSIUM (BEAKER) (test code = 379) 3.4 meq/L 3.5-5.1 L CHLORIDE (BEAKER) (test code = 382) 101 meq/L 98-107 CO2 (BEAKER) (test code = 355) 24 meq/L 22-29 BLOOD UREA NITROGEN (BEAKER) (test code = 354) 7 mg/dL 7-21 CREATININE (BEAKER) (test code = 358) 0.48 mg/dL 0.57-1.25 L GLUCOSE RANDOM (BEAKER) (test code = 652) 88 mg/dL 70-105 CALCIUM (BEAKER) (test code = 697) 8.0 mg/dL 8.4-10.2 L EGFR (BEAKER) (test code = 1092) 106 mL/min/1.73 sq m Interpretation of eG FR values Stage Description Result G1 Normal or high >=90 G2 Mildly decreased 60-89 G3a Mildly to moderately 45-59 G3b Moderately to severely 30-44 G4 Severly decreased 15-29 G5 Kidney failure <15Reported eGFR is based on the CKD-EPI 2020 equation that does not use a race coefficientEstimated GFR is not as accurate as Creatinine Clearance in predicting glomerular filtration rate. Estimated GFR is not applicable for dialysis patients Care Connector ID - BVCBC W/PLT COUNT & AUTO [id number] 03:37:56* Test Item Value Reference Range Interpretation Comme nts WHITE BLOOD CELL COUNT (BEAK ER) (test code = 775) 9.9 K/ L 3.5-10.5 RED BLOOD CELL COUNT (BEAKER ) (test code = 761) 3.73 M/ L 3.93-5.22 L HEMOGLOBIN (BEAKER) (test co de = 410) 11.9 GM/DL 11.2-15.7 HEMATOCRIT (BEAKER) (test co de = 411) 36.3 % 34.1-44.9 MEAN CORPUSCULAR VOLUME (LEYLA KER) (test code = 753) 97 fL 79-95 H MEAN CORPUSCULAR HEMOGLOBIN (BEAKER) (test code = 751) 31.9 pg 25.6-32.2 MEAN CORPUSCULAR HEMOGLOBIN CONC (BEAKER) (test code = 752) 32.8 GM/DL 32.2-35.5 RED CELL DISTRIBUTION WIDTH (BEAKER) (test code = 412) 12.4 % 11.7-14.4 PLATELET COUNT (BEAKER) (jonnie t code = 756) 191 K/CU MM 150-450 MEAN PLATELET VOLUME (BEAKER ) (test code = 754) 10.3 fL 9.4-12.3 NUCLEATED RED BLOOD CELLS (BEAKER) (test code = 413) 0 /100 WBC 0-0 NEUTROPHILS RELATIVE PERCENT (BEAKER) (test code = 429) 77 % LYMPHOCYTES RELATIVE PERCENT (BEAKER) (test code = 430) 10 % MONOCYTES RELATIVE PERCENT (BEAKER) (test code = 431) 11 % EOSINOPHILS RELATIVE PERCENT (BEAKER) (test code = 432) 1 % BASOPHILS RELATIVE PERCENT (BEAKER) (test code = 437) 0 % NEUTROPHILS ABSOLUTE COUNT (BEAKER) (test code = 670) 7.63 K/ L 1.56-6.13 H LYMPHOCYTES ABSOLUTE COUNT (BEAKER) (test code = 414) 0.98 K/ L 1.18-3.74 L MONOCYTES ABSOLUTE COUNT (BE FRANCISCO) (test code = 415) 1.09 K/ L 0.24-0.36 H EOSINOPHILS ABSOLUTE COUNT (BEAKER) (test code = 416) 0.08 K/ L 0.04-0.36 BASOPHILS ABSOLUTE COUNT (BE FRANCISCO) (test code = 417) 0.03 K/ L 0.01-0.08 IMMATURE GRANULOCYTES-RELATI VE PERCENT (BEAKER) (test code = 2801) 0.60 % 0.00-1.00 CT, BRAIN, WITHOUT [id number] 00:09:00Reason for Exam (Free Text) - Addiitonal information for Radiologist->ICH, now change in exam [facility] : 1960 Sex: FFINAL REPORT CLINICAL HISTORY: Unlisted Reason for Exam, intracranial hemorrhage, nowchange in exam COMPARISON: Same date at 0358 hours Multiple axial images of the brain were performed without IV contrast. This exam was performed according to our departmental dose-optimization program, which includes automated exposure control, adjustment of the mA and/or kV according to patient size and/or use of the iterative reconstruction technique. There is a stable size and appearance of aright parietal parenchymal hematoma measuring 3.9 x 2.1 x 2.9 cm with adjacent parenchymal edema and trace adjacent subarachnoid blood. Adjacent parenchymal edema is stable from previous, as is localmass effect. There is no or intraventricular extension of blood products. There is no hydrocephalus. There is no midline shift. The paranasal sinuses, orbits, skull base and cranium are unremarkable.IMPRESSION: No significant interval change in the size or appearance of a right parietal parenchymal hematoma with trace adjacent subarachnoid blood and adjacent edema with local mass effect. Please n ote that CT is insensitive in the detection of acute ischemia. Signed: Eren Tanner MDReport Verified Date/Time: 03/27/2023 00:09:36 POCT-GLUCOSE [id number] 00:08:34 * Test Item Value Reference Range Interpretation Comme nts POC-GLUCOSE METER (BEAKER) (test code = 1538) 91 mg/dL 70-110 : TESTED AT [facility] [address] [facility], [address]: Care Connector/Scanning Supervisor ID = [id number] for LANCE DORMANA VITAMIN [id number] 12:58:11* Test Item Value Reference Range Interpretation Comme nts VITAMIN B12 (BEAKER) (test c ode = 774) 1676 pg/mL 213-816 H Care Connector ID - MARCOPOCT-GLUCOSE [id number] 12:55:00* Test Item Value Reference Range Interpretation Comme nts POC-GLUCOSE METER (BEAKER) (test code = 1538) 101 mg/dL 70-110 : TESTED AT [facility] [address] [facility], [address]: Care Connector/Scanning Supervisor ID = [id number] for Irais Acuña [id number] 12:25:25* Test Item Value Reference Range Interpretation Comme nts MAGNESIUM (PIERCEAKER) (test cod e = 627) 2.1 mg/dL 1.6-2.6 Care Connector ID - [id number] 12:25:25* Test Item Value Reference Range Interpretation Comme nts POTASSIUM (PIERCEAKER) (test cod e = 379) 4.0 meq/L 3.5-5.1 Care Connector ID - MARCOHEMOGLOBIN [id number] 11:00:59* Test Item Value Reference Range Interpretation Comme nts HEMOGLOBIN A1C ELECTROPHORESIS (CARL) (test code = 3811) 5.4 % See_Comment [Automated me ssage] The system which generated this result transmitted reference range: <=5.6%. The reference range was not used to interpret this result as normal/abnormal. "The A1c is measured using a NGSP-certified method. HbA1c value equal to or greater than 6.5% as the diagnosis cutoff for diabetes. An HbA1c value of 5.7- 6.4% indicates increased risk for diabetes (prediabetes)."Care Connector ID - ADMOperator ID - ADMCT, BRAIN, WITHOUT [id number] 07:15:00 [facility] : 1960 Sex: FFINALREPORT CT Head without contrast CLINICAL HISTORY: Stroke, follow up TECHNIQUE:Contiguous axial CT images through the head without contrast. This exam was performed according to the departmental dose optimization program which includes automated exposure control, adjustment of the mA and/or kV according to the patient size, and/or use of an iterative reconstruction technique. COMPARISON: None FINDINGS: There is a right perirolandic hematoma measuring 4.0 cm TV x 2.4 cm AP x3.3 cm CC with a volume of 16 cc. There is prominent surrounding edema with local mass effect. There is no significant midline shift. There is no hydrocephalus. There are no extra-axial fluid collections. The skull is intact. The visualized paranasal sinuses are well-aerated. IMPRESSION: Right perirolandic parenchymal hemorrhage with surrounding edema. Comparison with outside imaging and attention on follow-up is recommended. Signed: Niall Reddy MDReport Verified Date/Time: 03/26/2023 07:15:21 [id number] 04:07:52* Test Item Value Reference Range Interpretation Comme nts MAGNESIUM (BEAKER) (test cod e = 627) 1.6 mg/dL 1.6-2.6 Care Connector ID - [id number] 04:07:52* Test Item Value Reference Range Interpretation Comme nts PHOSPHORUS (BEAKER) (test co de = 604) 1.6 mg/dL 2.3-4.7 L Care Connector ID - BSBASIC METABOLIC [id number] 04:07:51* Test Item Value Reference Range Interpretation Comme nts SODIUM (BEAKER) (test code = 381) 136 meq/L 136-145 POTASSIUM (BEAKER) (test code = 379) 3.3 meq/L 3.5-5.1 L CHLORIDE (BEAKER) (test code = 382) 104 meq/L 98-107 CO2 (BEAKER) (test code = 355) 22 meq/L 22-29 BLOOD UREA NITROGEN (BEAKER) (test code = 354) 12 mg/dL 7-21 CREATININE (BEAKER) (test code = 358) 0.54 mg/dL 0.57-1.25 L GLUCOSE RANDOM (BEAKER) (test code = 652) 93 mg/dL 70-105 CALCIUM (BEAKER) (test code = 697) 8.3 mg/dL 8.4-10.2 L EGFR (BEAKER) (test code = 1092) 103 mL/min/1.73 sq m Interpretation of eG FR values Stage Description Result G1 Normal or high >=90 G2 Mildly decreased 60-89 G3a Mildly to moderately 45-59 G3b Moderately to severely 30-44 G4 Severly decreased 15-29 G5 Kidney failure <15Reported eGFR is based on the CKD-EPI 2020 equation that does not use a race coefficientEstimated GFR is not as accurate as Creatinine Clearance in predicting glomerular filtration rate. Estimated GFR is not applicable for dialysis patients Care Connector ID - BSCBC W/PLT COUNT & AUTO [id number] 03:46:04* Test Item Value Reference Range Interpretation Comme nts WHITE BLOOD CELL COUNT (BEAK ER) (test code = 775) 8.6 K/ L 3.5-10.5 RED BLOOD CELL COUNT (BEAKER ) (test code = 761) 3.75 M/ L 3.93-5.22 L HEMOGLOBIN (BEAKER) (test co de = 410) 11.9 GM/DL 11.2-15.7 HEMATOCRIT (BEAKER) (test co de = 411) 35.5 % 34.1-44.9 MEAN CORPUSCULAR VOLUME (LEYLA KER) (test code = 753) 95 fL 79-95 MEAN CORPUSCULAR HEMOGLOBIN (BEAKER) (test code = 751) 31.7 pg 25.6-32.2 MEAN CORPUSCULAR HEMOGLOBIN CONC (BEAKER) (test code = 752) 33.5 GM/DL 32.2-35.5 RED CELL DISTRIBUTION WIDTH (BEAKER) (test code = 412) 12.5 % 11.7-14.4 PLATELET COUNT (BEAKER) (jonnie t code = 756) 200 K/CU MM 150-450 MEAN PLATELET VOLUME (BEAKER ) (test code = 754) 10.3 fL 9.4-12.3 NUCLEATED RED BLOOD CELLS (BEAKER) (test code = 413) 0 /100 WBC 0-0 NEUTROPHILS RELATIVE PERCENT (BEAKER) (test code = 429) 75 % LYMPHOCYTES RELATIVE PERCENT (BEAKER) (test code = 430) 13 % MONOCYTES RELATIVE PERCENT (BEAKER) (test code = 431) 10 % EOSINOPHILS RELATIVE PERCENT (BEAKER) (test code = 432) 2 % BASOPHILS RELATIVE PERCENT (BEAKER) (test code = 437) 0 % NEUTROPHILS ABSOLUTE COUNT (BEAKER) (test code = 670) 6.45 K/ L 1.56-6.13 H LYMPHOCYTES ABSOLUTE COUNT (BEAKER) (test code = 414) 1.10 K/ L 1.18-3.74 L MONOCYTES ABSOLUTE COUNT (BE FRANCISCO) (test code = 415) 0.87 K/ L 0.24-0.36 H EOSINOPHILS ABSOLUTE COUNT (BEAKER) (test code = 416) 0.13 K/ L 0.04-0.36 BASOPHILS ABSOLUTE COUNT (BE FRANCISCO) (test code = 417) 0.03 K/ L 0.01-0.08 IMMATURE GRANULOCYTES-RELATI VE PERCENT (PIERCEAKER) (test code = 2801) 0.30 % 0.00-1.00 POCT-GLUCOSE [id number] 23:04:06* Test Item Value Reference Range Interpretation Comme nts POC-GLUCOSE METER (CARL) (test code = 1538) 86 mg/dL 70-110 : TESTED AT [facility] [address] [place] [address], [address]: Care Connector/Scanning Supervisor ID = [id number] for Jordan, Nneoma T4, [id number] 20:46:57* Test Item Value Reference Range Interpretation Comme nts FREE T4 (CARL) (test code = 655) 1.02 ng/dL 0.70-1.48 Care Connector ID - BSTSH/FREE T4 IF [id number] 19:44:10* Test Item Value Reference Range Interpretation Comme nts THYROID STIMULATING HORMONE (CARL) (test code = 772) 0.107 uIU/mL 0.350-4.940 L Care Connector ID - BSHIV-1 ANTIGEN WITH HIV-1/2 [id number] 19:42:57* Test Item Value Reference Range Interpretation Comme nts HIV-1 ANTIGEN WITH HIV 1\\T\\2 ANTIBODY (2) (CARL) (test code = 2586) Nonreactive Nonreactive Care Connector ID - BSHIGH SENSITIVITY TROPONIN [id number] 19:28:20* Test Item Value Reference Range Interpretation Comme nts HIGH SENSITIVITY TROPONIN I (test code = 6138595) 12 pg/ml <=17 Care Connector ID - BSThe CONCESSIONIST STAT High Sensitivity Troponin-I results should be used in conjunction with other diagnostic information such as ECG, clinical observations and information, and patient symptoms to aid in the diagnosis of [place].HEPATIC FUNCTION [id number] 19:20:11* Test Item Value Reference Range Interpretation Comme nts TOTAL PROTEIN (BEAKER) (test code = 770) 6.4 gm/dL 6.0-8.3 ALBUMIN (BEAKER) (test code = 1145) 3.4 g/dL 3.5-5.0 L BILIRUBIN TOTAL (BEAKER) (te st code = 377) 0.4 mg/dL 0.2-1.2 BILIRUBIN DIRECT (BEAKER) (t est code = 706) 0.2 mg/dL 0.1-0.5 ALKALINE PHOSPHATASE (BEAKER ) (test code = 346) 70 U/L 40-150 AST (SGOT) (BEAKER) (test co de = 353) 46 U/L 5-34 H ALT (SGPT) (BEAKER) (test co de = 347) 31 U/L 6-55 Care Connector ID - BSLIPID [id number] 19:20:11* Test Item Value Reference Range Interpretation Comme nts TRIGLYCERIDES (BEAKER) (test code = 540) 121 mg/dL CHOLESTEROL (BEAKER) (test c ode = 631) 160 mg/dL HDL CHOLESTEROL (BEAKER) (te st code = 976) 46 mg/dL LDL CHOLESTEROL CALCULATED ( BEAKER) (test code = 633) 90 mg/dL Triglyceride Reference Range: Low Risk <150 Borderline 150-199 High Risk 200-499 Very High Risk >=500Cholesterol Reference Range: Low Risk <200 Borderline 200-239 High Risk >240HDL Cholesterol Reference Range: Low Risk >=60 High Risk <40LDL Cholesterol Reference Range: Optimal <100 Near Optimal 100-129 Borderline 130-159 High 160-189 Very High >=190 Care Connector ID - [id number] 19:13:49* Test Item Value Reference Range Interpretation Comme nts PARTIAL THROMBOPLASTIN TIME (BEAKER) (test code = 760) 27.1 seconds 22.5-36.0 PROTHROMBIN TIME/[id number] 19:13:02* Test Item Value Reference Range Interpretation Comme nts PROTIME (BEAKER) (test code = 759) 13.7 seconds 11.9-14.2 INR (BEAKER) (test code = 370) 1.12 <=5.90 RECOMMENDED COUMADIN/WARFARIN INR THERAPY RANGESSTANDARD DOSE: 2.0 - 3.0 Includes: PROPHYLAXIS for venous thrombosis, systemic embolization; TREATMENT for venous thrombosis and/or pulmonary embolus.HIGH RISK: Target INR is 2.5-3.5 for patients with mechanical heart valves.CBC WITH [id number] 11:54:35* Test Item Value Reference Range Interpretation Comme nts WBC (test code = 6690-2) See_Comment H [Automated message] The system which generated this result transmitted reference range: 4.30 - 11.10 10*3/?L. The reference range was not used to interpret this result as normal/abnormal. RBC (test code = 789-8) See_Comment L [Automated message] The system which generated this result transmitted reference range: 3.93 - 5.25 10*6/?L. The reference range was not used to interpret this result as normal/abnormal. HGB (test code = 718-7) 11.0 g/dL 11.6-15.0 L HCT (test code = 4544-3) 32.7 % 35.7-45.2 L MCV (test code = 787-2) 95.6 fL 80.6-95.5 H MCH (test code = 785-6) 32.2 pg 25.9-32.8 MCHC (test code = 786-4) 33.6 g/dL 31.6-35.1 RDW-SD (test code = 20754-2) 47.2 fL 39.0-49.9 RDW-CV (test code = 788-0) 13.3 % 12.0-15.5 PLT (test code = 777-3) See_Comment [Automated message] The system which generated this result transmitted reference range: 166 - 358 10*3/?L. The reference range was not used to interpret this result as normal/abnormal. MPV (test code = 89948-9) 10.6 fL 9.5-12.9 NRBC/100 WBC (test code = 2144562621) See_Comment [Automated message] The system which generated this result transmitted reference range: 0.0 - 10.0 /100 WBCs. The reference range was not used to interpret this result as normal/abnormal. NRBC x10^3 (test code = 3486506894) <0.01 See_Comment [Automated message] The system which generated this result transmitted reference range: 10*3/?L. The reference range was not used to interpret this result as normal/abnormal. GRAN MAT (NEUT) % (test code = 770-8) 79.3 % IMM GRAN % (test code = 6095232539) 5.70 % LYMPH % (test code = 736-9) 6.9 % MONO % (test code = 5905-5) 6.8 % EOS % (test code = 713-8) 0.7 % BASO % (test code = 706-2) 0.6 % GRAN MAT x10^3(ANC) (test code = 2765999828) 11.84 10*3/uL 1.88-7.09 H IMM GRAN x10^3 (test code = 9294981445) 0.85 10*3/uL 0.00-0.06 H LYMPH x10^3 (test code = 731-0) 1.03 10*3/uL 1.32-3.29 L MONO x10^3 (test code = 742-7) 1.01 10*3/uL 0.33-0.92 H EOS x10^3 (test code = 711-2) 0.10 10*3/uL 0.03-0.39 BASO x10^3 (test code = 704-7) 0.09 10*3/uL 0.01-0.07 H TOXIC CHANGES (test code = 803-7) Present A Lab Interpretation (test code = 04669-4) [facility] 11:21:36* Test Item Value Reference Range Interpretation Comme nts MAGNESIUM (test code = 1360635961) 2.1 mg/dL 1.7-2.4 Lab Interpretation (test cod e = 24862-7) Normal [facility] (NA, K, CL, CO2, GLUCOSE, BUN, CREATININE, CA)2021-04-03 11:21:35* Test Item Value Reference Range Interpretation Comme nts NA (test code = 6897492198) 140 mmol/L 135-145 K (test code = 5651238009) 4.0 mmol/L 3.5-5.0 CL (test code = 8676541087) 105 mmol/L 98-108 CO2 TOTAL (test code = 2162317353) 30 mmol/L 23-31 AGAP (test code = 4057273026) 2-16 BUN (test code = 2692785261) 9 mg/dL 7-23 GLUCOSE (test code = 5722236089) 89 mg/dL 70-110 CREATININE (test code = 6765794638) 0.39 mg/dL 0.50-1.04 L CALCIUM (test code = 0178355849) 8.2 mg/dL 8.6-10.6 L eGFR (test code = 6505885942) mL/min/1.73m2 QUE (test code = QUE) Association of [...] or abnormalities in imaging tests). Lab Interpretation (test code = 64118-5) Abnormal [facility]2021-[facility] 11:21:15* Test Item Value Reference Range Interpretation Comme nts PHOSPHORUS (test code = 8694646655) 2.1 mg/dL 2.5-5.0 L Lab Interpretation (test cod e = 87256-0) Abnormal [facility] HospitalGRAM NEGATIVE BLOOD PATHOGENS DNA [id number] 21:43:06* Test Item Value Reference Range Interpretation Comme nts Escherichia coli (test code = 66013-3) Positive Negative, See Comment/Narrative A QUE (test code = QUE) See blood culture result for additional information. ?Testing included eight identification and six resistance marker targets. Lab Interpretation (test code = 42678-2) Abnormal [facility] HospitalCBC with [id number] 18:39:37* Test Item Value Reference Range Interpretation Comme nts WBC (test code = 6690-2) See_Comment H [Automated message] The system which generated this result transmitted reference range: 4.30 - 11.10 10*3/?L. The reference range was not used to interpret this result as normal/abnormal. RBC (test code = 789-8) See_Comment L [Automated message] The system which generated this result transmitted reference range: 3.93 - 5.25 10*6/?L. The reference range was not used to interpret this result as normal/abnormal. HGB (test code = 718-7) 9.8 g/dL 11.6-15.0 L HCT (test code = 4544-3) 28.4 % 35.7-45.2 L MCV (test code = 787-2) 95.3 fL 80.6-95.5 MCH (test code = 785-6) 32.9 pg 25.9-32.8 H MCHC (test code = 786-4) 34.5 g/dL 31.6-35.1 RDW-SD (test code = 74351-2) 45.6 fL 39.0-49.9 RDW-CV (test code = 788-0) 13.2 % 12.0-15.5 PLT (test code = 777-3) See_Comment [Automated message] The system which generated this result transmitted reference range: 166 - 358 10*3/?L. The reference range was not used to interpret this result as normal/abnormal. MPV (test code = 06627-0) 10.9 fL 9.5-12.9 NRBC/100 WBC (test code = 9183422051) See_Comment [Automated message] The system which generated this result transmitted reference range: 0.0 - 10.0 /100 WBCs. The reference range was not used to interpret this result as normal/abnormal. NRBC x10^3 (test code = 4139004585) <0.01 See_Comment [Automated message] The system which generated this result transmitted reference range: 10*3/?L. The reference range was not used to interpret this result as normal/abnormal. SEG % (test code = 52742-2) 69 % 33-76 BAND % (test code = 67860-4) 14 % 0-1 H META % (test code = 29137-4) 2 % See_Comment H [Automated message] The system which generated this result transmitted reference range: <=0. The reference range was not used to interpret this result as normal/abnormal. MYELO % (test code = 46209-3) 1 % See_Comment H [Automated message] The system which generated this result transmitted reference range: <=0. The reference range was not used to interpret this result as normal/abnormal. LYMPH % (test code = 52544-7) 6 % 14-54 L MONO % (test code = 23505-6) 8 % 0-4 H ANC (test code = 1724551082) 14.98 10*3/uL 1.88-7.09 H TOXIC CHANGES (test code = 803-7) Present A Lab Interpretation (test code = 63805-7) Abnormal [facility] HospitalXR ANKLE 3+ VW [id number] 17:58:05 HISTORY: S/P fall. FINDINGS: AP, lateral, oblique views of right ankle obtained with portabletechnique showed no acute fracture or dislocation. No significant anklejoint effusion. Mild degenerative changes are seen in the medial tibiotalarjoint. 3 Heavy duty see shift metallic clamps are seen utilized for arthrodesis ofsubtalar joint, calcaneocuboid, talonavicular joint. CONCLUSIONS: No acute fracture or dislocation in right ankle. [facility], Radiant Results Inft User - 04/02/2021 12:59 PM CDT HISTORY: S/P fall.FINDINGS: AP, lateral, oblique views of right ankle obtained with portabletechnique showed no acute fracture or dislocation. No significant anklejoint effusion. Mild degenerative changes are seen in the medial tibiotalarjoint.3Heavy duty see shift metallic clamps are seen utilized for arthrodesis ofsubtalar joint, calcaneocuboid, talonavicular joint.CONCLUSIONS: No acute fracture or dislocation in right ankle.[facility]MAG[facility]2021-[facility] 17:54:26* Test Item Value Reference Range Interpretation Comme nts MAGNESIUM (test code = 9364672644) 1.5 mg/dL 1.7-2.4 L Lab Interpretation (test cod e = 05637-6) Abnormal [facility] (NA, K, CL, CO2, GLUCOSE, BUN, CREATININE, CA)2021-04-02 11:55:55* Test Item Value Reference Range Interpretation Comme nts NA (test code = 7253765000) 137 mmol/L 135-145 K (test code = 5929528185) 2.6 mmol/L 3.5-5.0 LL CL (test code = 6925765032) 106 mmol/L 98-108 CO2 TOTAL (test code = 3378441333) 27 mmol/L 23-31 AGAP (test code = 8416607689) 2-16 BUN (test code = 0567017484) 15 mg/dL 7-23 GLUCOSE (test code = 5180551328) 99 mg/dL 70-110 CREATININE (test code = 5993106504) 0.43 mg/dL 0.50-1.04 L CALCIUM (test code = 7230460350) 7.6 mg/dL 8.6-10.6 L eGFR (test code = 9562942833) mL/min/1.73m2 QUE (test code = QUE) Association of [...] or abnormalities in imaging tests). Lab Interpretation (test code = 52816-8) Abnormal [facility] HospitalXR HIP 1 VW [id number] 02:25:52 Bilateral moderate hip osteoarthritis without definite acute fracture ordislocation appreciated on single bilateral AP views. Please correlate withfindings on CT of the abdomen and pelvis from the same day, not availablefor review. RL: 460 AFC: [id number] Ordering physician: ASHLEY SHEA INDICATION: Unwitnessed fall COMPARISON: None available FINDINGS: Single AP views of the bilateral hips. There is bilateralmoderate osteoarthritis, with loss of joint space and marginal osteophyteformation. No definite acute fracture or di slocation is appreciated. [facility], Radiant Results Inft User - 04/01/2021 9:27 PM CDT Ordering physician: ASHLEY SHEAINDICATION: Unwitnessed fallCOMPARISON: None availableFINDINGS: Single AP views of the bilateral hips. There is bilater almoderate osteoarthritis, with loss of joint space and marginal osteophyteformation. No definite acute fracture or dislocation is appreciated.IMPRESSIONBilateral moderate hip osteoarthritis without definite acute fracture ordislocation appreciated on single bilateral AP views. Please correlate withfindings on CT of the abdomen and pelvis from the same day, not availablefor review.RL: [id number]: [id number] signed by Nichole Norris MD, PhD at 04/01/2021 9:25 PMUnHeart Hospital of AustinCREATINE KINASE 2021-04-02 00:01:50* Test Item Value Reference Range Interpretation Comme nts CK (test code = 5591940214) 382 U/L 33-194 H Slight hemolysis Lab Interpretation (test code = 16144-1) Abnormal [facility] HospitalLactic Acid Whole [id number] 20:34:02* Test Item Value Reference Range Interpretation Comme nts LACTIC ACID (test code = 1433630350) 1.58 mmol/L 0.50-2.20 Lab Interpretation (test cod e = 39989-1) Normal [facility] HospitalCT ABDOMEN PELVIS W WO [id number] 20:27:17CT Abdomen and Pelvis without and with intravenous contrast. CLINICAL HISTORY: Hematuria, unknown cause. DOSE: Up-to-date CT equipment and radiation dose reduction techniques wereemployed. CTDIvol: 6.19+6.16 mGy. DLP: 269+277 mGy-cm. TECHNIQUE : Contiguous axial imaging from the level of the lung ba sesthrough the pubic symphysis were performed initially without [...] Spleen is approximately 9.8 x 4.9 cm. Common hepatic duct is slightlydilated, measuring 7 to 8 mm. Distal common bile duct and pancreatic ductappear of normal size. Peritoneum: ?No free air or free fluid. No lymphadenopathy. Pancreas and Adrenals: ?Unremarkable pancreas and adrenal glands. Kidneys and Ureters: ?No visible calculi inthe renal collecting systems. No hydroureter or hydronephrosis. Diffuse striated nephrogram patterndetected in both kidneys, more severeon the right [...] dextroscoliosis, moderate degenerative disc disease at L4-L5,less atL3-L4 with grade 1 spondylolisthesis at L4-L5 and moderate facetarthritis at lower 4 lumbar levels.Soft tissues: Unremarkable except for slightly irregular shaped 2 x 1 cmumbilical hernia containingfat. CONCLUSION:1. Striated bilateral nephrograms pattern, suggestive of diffuse bilateralpyelonephritis without any renal abscess or perinephric fat congestion.2. No kidney stones or hydronephrosis.[facility], Radiant Results Inft User - 04/01/2021 3:[address] Abdomen and Pelvis without and with intravenous contrast.CLINICAL HISTORY: Hematuria, unknown cause.DOSE: Up-to-date CT equipment and radiation dose reduction techniques wereemployed. CTDIvol: 6.19+6.16 mGy. DLP: 269+277 mGy-cm.TECHNIQUE : Contiguous axial imaging from the levelof the lung basesthrough the pubic symphysis were performed initially without contrast andsubsequently after the uncomplicated administration of Omnipaque contrastmaterial (CT urogram protocol). Coronal and sagittal reconstructions wereobtained. Auto mA and/or iterative reconstruction were used to r educeradiation dose.FINDINGS: Lower lungs: Clear. No pleural effusion or pericardial effusion. Lefthemidiaphragm is elevated without apparent cause in this study.Liver, Gallbladder and Spleen: Liver is 15.2 cm and appears normal.Gallbladder is hydropic without any other associated CT signs such asca lcified gallstones or cerebral edema or pericholecystic fluid collection.Spleen is approximately 9.8 x 4.9 cm. Common hepatic duct is slightlydilated, measuring 7 to 8 mm. Distal common bile duct andpancreatic ductappear of normal size.Peritoneum: No free air [...] Patenthepatic/portal venous circulation and renal veins.Retroperitoneum: No abnormal fluid or lymphadenopathy.Bowel: Constipation. Normal appendix. Radiopaque [...] Striated bilateral nephrograms pattern, suggestive of diffuse bilateralpyelonephritiswithout any renal abscess or perinephric fat congestion.2. No kidney stones or hydronephrosis.[facility] 20:15:14* Test Item Value Reference Range Interpretation Comme nts MAGNESIUM (test code = 1060153540) 1.7 mg/dL 1.7-2.4 Lab Interpretation (test cod e = 17871-7) Normal [facility]2021-[facility]-02 20:14:58* Test Item Value Reference Range Interpretation Comme nts PHOSPHORUS (test code = 8656346551) 2.1 mg/dL 2.5-5.0 L Slight hemolysis Lab Interpretation (test code = 39946-1) Abnormal [facility]COMP[facility]OLIC PANEL (22503)2021-04-01 18:35:32* Test Item Value Reference Range Interpretation Comme nts NA (test code = 6809943705) 133 mmol/L 135-145 L K (test code = 2092369275) 3.0 mmol/L 3.5-5.0 L CL (test code = 9449815570) 101 mmol/L 98-108 CO2 TOTAL (test code = 6037827214) 23 mmol/L 23-31 AGAP (test code = 5741181456) 2-16 BUN (test code = 7087846436) 33 mg/dL 7-23 H GLUCOSE (test code = 0992271000) 120 mg/dL 70-110 H CREATININE (test code = 9909917070) 0.64 mg/dL 0.50-1.04 TOTAL BILI (test code = 4869805659) 0.9 mg/dL 0.1-1.1 CALCIUM (test code = 9059125007) 8.2 mg/dL 8.6-10.6 L T PROTEIN (test code = 6091621691) 6.9 g/dL 6.3-8.2 ALBUMIN (test code = 8396134821) 3.2 g/dL 3.5-5.0 L ALK PHOS (test code = 3334682582) 116 U/L 34-122 ALTv (test code = 1742-6) 39 U/L 5-35 H AST(SGOT) (test code = 3476721564) 63 U/L 13-40 H eGFR (test code = 3574773654) mL/min/1.73m2 QUE (test code = QUE) Association of [...] or abnormalities in imaging tests). Lab Interpretation (test code = 11068-9) Abnormal [facility] WITH [id number] 18:13:18* Test Item Value Reference Range Interpretation Comme nts WBC (test code = 6690-2) See_Comment H [Automated message] The system which generated this result transmitted reference range: 4.30 - 11.10 10*3/?L. The reference range was not used to interpret this result as normal/abnormal. RBC (test code = 789-8) See_Comment L [Automated message] The system which generated this result transmitted reference range: 3.93 - 5.25 10*6/?L. The reference range was not used to interpret this result as normal/abnormal. HGB (test code = 718-7) 12.1 g/dL 11.6-15.0 HCT (test code = 4544-3) 35.3 % 35.7-45.2 L MCV (test code = 787-2) 95.7 fL 80.6-95.5 H MCH (test code = 785-6) 32.8 pg 25.9-32.8 MCHC (test code = 786-4) 34.3 g/dL 31.6-35.1 RDW-SD (test code = 19545-7) 45.1 fL 39.0-49.9 RDW-CV (test code = 788-0) 13.0 % 12.0-15.5 PLT (test code = 777-3) See_Comment [Automated message] The system which generated this result transmitted reference range: 166 - 358 10*3/?L. The reference range was not used to interpret this result as normal/abnormal. MPV (test code = 47380-6) 11.0 fL 9.5-12.9 NRBC/100 WBC (test code = 0585574540) See_Comment [Automated message] The system which generated this result transmitted reference range: 0.0 - 10.0 /100 WBCs. The reference range was not used to interpret this result as normal/abnormal. NRBC x10^3 (test code = 4998255320) <0.01 See_Comment [Automated message] The system which generated this result transmitted reference range: 10*3/?L. The reference range was not used to interpret this result as normal/abnormal. GRAN MAT (NEUT) % (test code = 770-8) 86.7 % IMM GRAN % (test code = 7542430804) 4.60 % LYMPH % (test code = 736-9) 3.1 % MONO % (test code = 5905-5) 5.2 % EOS % (test code = 713-8) 0.0 % BASO % (test code = 706-2) 0.4 % GRAN MAT x10^3(ANC) (test code = 5245118676) 22.47 10*3/uL 1.88-7.09 H IMM GRAN x10^3 (test code = 2576059882) 1.18 10*3/uL 0.00-0.06 H LYMPH x10^3 (test code = 731-0) 0.80 10*3/uL 1.32-3.29 L MONO x10^3 (test code = 742-7) 1.36 10*3/uL 0.33-0.92 H EOS x10^3 (test code = 711-2) <0.03 0.03-0.39 L BASO x10^3 (test code = 704-7) 0.10 10*3/uL 0.01-0.07 H BANDS (test code = 5612509722) MARKED INCREASED A TOXIC CHANGES (test code = 803-7) Present A Lab Interpretation (test code = 09547-3) Abnormal [facility] HospitalCOVID-[facility] (ID NOW RAPID TESTING)2021-04-01 17:46:30* Test Item Value Reference Range Interpretation Comme nts SARS-CoV-2 Rapid ID NOW (test code = 00720-4) Not Detected Not Detected QUE (test code = QUE) ID NOW COVID-19 As say is an isothermal nucleic acid amplification test intended for the qualitative detection of nucleic acid from SARS-CoV-2 viral RNA in nasopharyngeal (PR[employer] WATCHMAN) specimens. It is used under Emergency Use [...] patient testing if clinically indicated. Lab Interpretation (test code = 82541-8) Normal [facility] HospitalURINALYSIS2021-06-02 17:44:32* Test Item Value Reference Range Interpretation Comme nts APPEARANCE (test code = 6735567294) Cloudy Clear A COLOR (test code = 5346275655) Marsha Yellow A PH (test code = 7620894397) 4.8-8.0 SP GRAVITY (test code = 5539978823) 1.003-1.030 GLU U QUAL (test code = 1001470243) Normal Normal BLOOD (test code = 6408331889) 3+ Negative A KETONES (test code = 1466225057) 5 mg/dL Negative A PROTEIN (test code = 2887-8) 30 mg/dL Negative A UROBILIN (test code = 4888140485) Normal Normal BILIRUBIN (test code = 2420113045) Negative Negative NITRITE (test code = 2931662139) Positive Negative A LEUK ELLEN (test code = 5231914919) 500/uL Negative A RBC/HPF (test code = 6819099535) See_Comment H [Automated [employer]] The system which generated this result transmitted reference range: 0 - 3 HPF. The reference range was not used to interpret this result as normal/abnormal. WBC/HPF (test code = 8982782012) See_Comment H [Automated [employer]] The system which generated this result transmitted reference range: 0 - 5 HPF. The reference range was not used to interpret this result as normal/abnormal. BACTERIA (test code = 4120072379) Many Negative A MUCOUS (test code = 2493757697) Slight Negative LPF A SQ EPITH (test code = 9182346771) HPF HYAL CAST (test code = 9578813572) See_Comment H [Automated messa ge] The system which generated this result transmitted reference range: <=2 LPF. The reference range was not used to interpret this result as normal/abnormal. Lab Interpretation (test code = 99371-3) Abnormal [facility] HospitalLactic Acid Whole [id number] 17:31:59* Test Item Value Reference Range Interpretation Comme nts LACTIC ACID (test code = 9162472666) 2.30 mmol/L 0.50-2.20 H Lab Interpretation (test cod e = 86748-4) Abnormal [facility] HospitalXR CHEST 1 [id number] 17:29:28HISTORY: AMS. TECHNIQUE: Portable AP erect view of the chest is obtained. No prior cheststudy available for comparison. FINDINGS: No acute pneumonia. No pneumothorax or pleural effusion orpulmonary congestion detected. Cardiac size is within normal limits. Severe deformity of the left glenohumeral joint noted, probably secondaryto remote trauma. CONCLUSIONS: No signs of acute cardiopulmonary disea se.[facility], Radiant Results Inft User - 04/01/2021 12:30 PM CDT HISTORY: AMS.TECHNIQUE: Portable AP erect view of the chest is obtained. No prior cheststudy available for comparison.FINDINGS: No acute pneumonia. No pneumothorax or pleural effusion orpulmonary congestion detected. Cardiac size is within normal limits.Severe deformity of the left glenohumeral joint noted, probably secondaryto remote trauma.CONCLUSIONS: No signs of acute cardiopulmonary disease.[facility] HospitalIMMUNOLOGY2018-03-08 18:12:00* Test Item Value Reference Range Interpretation Comme nts SCL- 70 Ab (test code = SCL- 70 Ab) no gt SS-B (La) Ab (test code = SS-B (La) Ab) no gt SS-A (Ro) Ab (test code = SS-A (Ro) Ab) no gt Hep C Ab (test code = Hep C Ab) Positive *ABN*(01/05/18 12:12 PM) Hep Bs Ag (test code = Hep Bs Ag) Negative *NA*(01/05/18 12:12 PM) RF Qnt (test code = RF Qnt) no gt <=20 ANGIE (test code = ANGIE) Negative (01/05/18 12:12 PM) DNA Ab (DS) (test code = DNA Ab (DS)) Negative (01/05/18 12:12 PM) C4 Complement (test code = C4 Complement) 28 16-47 C3 Complement (test code = C3 Complement) 105 88-201 Albumin (SPE) (test code = Albumin (SPE)) 3.16 3.57-5.55 Gamma % (test code = Gamma %) 12.1 11.1-18.7 Beta % (test code = Beta %) 10.6 7.8-13.7 Alpha 2 % (test code = Alpha 2 %) 15.2 7.0-11.9 Tot Prot (SPE) (test code = Tot Prot (SPE)) 5.9 6.4-8.4 Gamma Glob (test code = Gamma Glob) 0.71 0.71-1.57 Beta Glob (test code = Beta Glob) 0.63 0.50-1.15 Alpha 2 Glob (test code = Alpha 2 Glob) 0.90 0.45-1.00 SPE Interp (test code = SPE Interp) Total protein is decreased with a corresponding decrease in serum albumin. [...] urine if clinically indicated. Interpretation performed at [facility]. Alpha 1 Glob (test code = Alpha 1 Glob) 0.51 0.18-0.41 Albumin % (test code = Albumin %) 53.5 55.8-66.1 Alpha 1 % (test code = Alpha 1 %) 8.6 2.8-4.9 ARIA Ser Interp (test code = ARIA Ser Interp) Serum immunofixation electrophoresis reveals a polyclonal pattern of immunoglobulins. No monoclonal proteins are identified. Interpretation performed at [facility]. ARIA Ser Pattern (test code = ARIA Ser Pattern) Diffusely immunoreactive bands are noted in the IgG, IgA, IgM, kappa and lambda lanes. No monoclonal bands are identified. Interpretation performed at [facility]. [place]/Lambda Free Light Chains Ratio (test code = Mosby/Lambda Free Light Chains Ratio) 2.15 0.26-1.65 Lambda Free Light Chains (test code = Lambda Free Light Chains) 12.47 5.70-26.30 [place] Free Light Chains (test code = Mosby Free Light Chains) 26.82 3.30-19.40 [facility] [id number] 10:02:00* Test Item Value Reference Range Interpretation Comme nts Phosphorus (test code = Phosphorus) 0.5 2.5-4.5 Magnesium Lvl (test code = M agnesium Lvl) 2.2 1.8-2.4 [id number] 10:02:00* Test Item Value Reference Range Interpretation Comme nts AGAP (test code = AGAP) 8.2 10.0-20.0 Calcium Lvl (test code = Calcium Lvl) 7.9 8.5-10.5 Sodium Lvl (test code = Sodium Lvl) 135 135-145 Potassium Lvl (test code = P otassium Lvl) 3.2 3.5-5.1 CO2 (test code = CO2) 26 24-32 Chloride Lvl (test code = Chloride Lvl) 104 95-109 Creatinine Lvl (test code = Creatinine Lvl) 0.44 0.50-1.40 Glucose Lvl (test code = Glucose Lvl) 98 70-99 BUN (test code = BUN) 17 7-22 eGFR (test code = eGFR) 110 [id number] 10:02:00* Test Item Value Reference Range Interpretation Comme nts Eosinophils # (test code = Eosinophils #) 0.1 <=0.5 Monocytes # (test code = Monocytes #) 0.6 <=0.8 Segs (test code = Segs) 81.0 45.0-75.0 Lymphocytes # (test code = Lymphocytes #) 1.1 1.0-5.5 Basophils (test code = Basophils) 0.7 <=1.0 Segs-Bands # (test code = Se gs-Bands #) 7.8 1.5-8.1 Basophils # (test code = Basophils #) 0.1 <=0.2 Lymphocytes (test code = Lymphocytes) 11.1 20.0-40.0 Eosinophils (test code = Eosinophils) 1.3 <=4.0 Monocytes (test code = Monocytes) 5.9 2.0-12.0 MCH (test code = MCH) 33.2 pg 27.0-31.0 RBC (test code = RBC) 3.30 4.20-5.40 Hgb (test code = Hgb) 11.0 12.0-16.0 Hct (test code = Hct) 30.4 36.0-48.0 MCV (test code = MCV) 92.0 80.0-98.0 WBC (test code = WBC) 9.6 3.7-10.4 RDW (test code = RDW) 14.7 11.5-14.5 MPV (test code = MPV) 8.6 7.4-10.4 MCHC (test code = MCHC) 36.1 32.0-36.0 Platelet (test code = Platelet) 228 133-450 [facility] [id number] 20:28:00* Test Item Value Reference Range Interpretation Comme [facility] eGFR (test code = eGFR) 97 AGAP (test code = AGAP) 13.3 10.0-20.0 Creatinine Lvl (test code = Creatinine Lvl) 0.66 0.50-1.40 Calcium Lvl (test code = Calcium Lvl) 7.8 8.5-10.5 CO2 (test code = CO2) 21 24-32 Potassium Lvl (test code = P otassium Lvl) 3.3 3.5-5.1 Chloride Lvl (test code = Chloride Lvl) 103 95-109 Sodium Lvl (test code = Sodium Lvl) 134 135-145 BUN (test code = BUN) 16 7-22 Glucose Lvl (test code = Glucose Lvl) 141 70-99 [facility]URINE [id number] 19:19:00* Test Item Value Reference Range Interpretation Comme [facility] U Protein (test code = U Protein) 28.4 U Creatinine (test code = U Creatinine) no gt U Prot/Creat (test code = U Prot/Creat) See Note 1(01/04/18 1:19 PM) [facility] Ho[id number] 12:42:00* Test Item Value Reference Range Interpretation Comme [facility] Potassium Lvl (test code = P otassium Lvl) 3.1 3.5-5.1 CO2 (test code = CO2) 18 24-32 Sodium Lvl (test code = Sodium Lvl) 135 135-145 Chloride Lvl (test code = Chloride Lvl) 105 95-109 AGAP (test code = AGAP) 15.1 10.0-20.0 Calcium Lvl (test code = Calcium Lvl) 7.5 8.5-10.5 eGFR (test code = eGFR) 106 Glucose Lvl (test code = Glucose Lvl) 74 70-99 Creatinine Lvl (test code = Creatinine Lvl) 0.50 0.50-1.40 BUN (test code = BUN) 18 7-22 [facility] Hosp[id number] 12:42:00* Test Item Value Reference Range Interpretation Comme [facility] Cortisol (test code = Cortisol) 17.9 [facility] [id number] 12:42:00* Test Item Value Reference Range Interpretation Comme [facility] MCHC (test code = MCHC) 35.6 32.0-36.0 RDW (test code = RDW) 14.2 11.5-14.5 Platelet (test code = Platelet) 244 133-450 MPV (test code = MPV) 8.7 7.4-10.4 MCH (test code = MCH) 32.6 pg 27.0-31.0 Hgb (test code = Hgb) 10.4 12.0-16.0 RBC (test code = RBC) 3.18 4.20-5.40 Hct (test code = Hct) 29.2 36.0-48.0 MCV (test code = MCV) 91.7 80.0-98.0 WBC (test code = WBC) 9.4 3.7-10.4 Basophils (test code = Basophils) 0.6 <=1.0 Lymphocytes (test code = Lymphocytes) 9.2 20.0-40.0 Eosinophils (test code = Eosinophils) 1.1 <=4.0 Monocytes (test code = Monocytes) 7.5 2.0-12.0 Segs (test code = Segs) 81.6 45.0-75.0 Segs-Bands # (test code = Se gs-Bands #) 7.6 1.5-8.1 Monocytes # (test code = Monocytes #) 0.7 <=0.8 Eosinophils # (test code = Eosinophils #) 0.1 <=0.5 Basophils # (test code = Basophils #) 0.1 <=0.2 Lymphocytes # (test code = Lymphocytes #) 0.9 1.0-5.5 [facility] [id number] 12:30:00* Test Item Value Reference Range Interpretation Comme nts Magnesium Lvl (test code = M agnesium Lvl) 2.3 1.8-2.4 [facility] [id number] 05:52:00* Test Item Value Reference Range Interpretation Comme nts Magnesium Lvl (test code = M agnesium Lvl) 2.3 1.8-2.4 [facility] [id number] 22:47:00* Test Item Value Reference Range Interpretation Comme nts Vitamin D, 25-OH, Total (jonnie t code = Vitamin D, 25-OH, Total) 5.8 30.0-100.0 Osmolality (test code = Osmolality) 280 280-300 Uric Acid (test code = Uric Acid) 12.4 2.5-7.0 [facility] Hosp[id number] 22:47:00* Test Item Value Reference Range Interpretation Comme nts Aldosterone (test code = Aldosterone) 9.1 <=30.0 Renin Activity (test code = Renin Activity) 18.981 0.167-5.380 [facility] AND [id number] 21:54:00* Test Item Value Reference Range Interpretation Comme nts UA Urobilinogen (test code = UA Urobilinogen) <=1.0 mg/dL 0.1-1.0 UA Ketones (test code = UA Ketones) Trace mg/dL UA Glucose (test code = UA Glucose) Negative mg/dL UA Protein (test code = UA Protein) Negative mg/dL UA Hyal Cast (test code = UA Hyal Cast) 1 <=2 UA Bili (test code = UA Bili) Negative *NA*(01/03/18 3:54 PM) UA pH (test code = UA pH) 6.0 1 5.0-8.0 UA Leuk Est (test code = UA Leuk Est) Negative (01/03/18 3:54 PM) UA Blood (test code = UA Blood) Moderate *ABN*(01/03/18 3:54 PM) UA Sq Epi (test code = UA Sq Epi) Few /LPF UA WBC (test code = UA WBC) 1 <=5 UA RBC (test code = UA RBC) 2 <=2 UA Nitrite (test code = UA Nitrite) Negative (01/03/18 3:54 PM) UA Color (test code = UA Color) Yellow *NA*(01/03/18 3:54 PM) UA Spec Grav (test code = UA Spec Grav) 1.008 1 UA Turbidity (test code = UA Turbidity) Clear (01/03/18 3:54 PM) [facility] [id number] 21:54:00* Test Item Value Reference Range Interpretation Comme nts U Calcium (test code = U Calcium) <5.0 mg/dL U Glucose (test code = U Glucose) 3 U Magnesium (test code = U Magnesium) 3.8 U Protein (test code = U Protein) 44.7 U Creatinine (test code = U Creatinine) 25.50 U Prot/Creat (test code = U Prot/Creat) 1.75 1 U Osmolality (test code = U Osmolality) 310 300-800 U Chloride (test code = U Chloride) 91 U Potassium (test code = U Potassium) 46.2 U Sodium (test code = U Sodium) 41 [id number] 16:10:00* Test Item Value Reference Range Interpretation Comme nts Plt Morph (test code = Plt Morph) Normal (01/03/18 10:10 AM) Segs-Bands # (test code = Segs-Bands #) 12.3 1.5-8.1 Lymphocytes # (test code = Lymphocytes #) 0.9 1.0-5.5 Monocytes # (test code = Monocytes #) 1.1 <=0.8 Segs (test code = Segs) 84.0 45.0-75.0 Bands (test code = Bands) 2.0 <=11.0 Lymphocytes (test code = Lymphocytes) 6.0 20.0-40.0 Monocytes (test code = Monocytes) 8.0 2.0-12.0 Atypical Lymphs (test code = Atypical Lymphs) 0.0 RBC Morph (test code = RBC Morph) Normal (01/03/18 10:10 AM) MPV (test code = MPV) 9.0 7.4-10.4 Platelet (test code = Platelet) 309 133-450 MCHC (test code = MCHC) 36.4 32.0-36.0 RDW (test code = RDW) 14.2 11.5-14.5 MCV (test code = MCV) 90.2 80.0-98.0 MCH (test code = MCH) 32.8 pg 27.0-31.0 Hct (test code = Hct) 33.5 36.0-48.0 Hgb (test code = Hgb) 12.2 12.0-16.0 RBC (test code = RBC) 3.72 4.20-5.40 WBC (test code = WBC) 14.3 3.7-10.4 [facility]CARDIAC [id number] 13:48:00* Test Item Value Reference Range Interpretation Comme nts Total CK (test code = Total CK) 368 12-191 Troponin-I (test code = Troponin-I) 0.23 <=0.40 CK MB (test code = CK MB) 15.2 0.5-3.6 CK MB Index (test code = CK MB Index) 4.1 1 <=2.5 [facility] AND [id number] 10:00:00* Test Item Value Reference Range Interpretation Comme nts UA Urobilinogen (test code = UA Urobilinogen) <=1.0 mg/dL 0.1-1.0 UA pH (test code = UA pH) 5.0 1 5.0-8.0 UA Spec Grav (test code = UA Spec Grav) 1.012 1 UA Glucose (test code = UA Glucose) Negative mg/dL UA Protein (test code = UA Protein) 30 mg/dL UA Ketones (test code = UA Ketones) Trace mg/dL UA Blood (test code = UA Blood) Moderate *ABN*(01/03/18 4:00 AM) Micro? (test code = Micro?) Performed *NA*(01/03/18 4:00 AM) UA Mucus (test code = UA Mucus) Few /LPF UA Leuk Est (test code = UA Leuk Est) Negative (01/03/18 4:00 AM) UA RBC (test code = UA RBC) 1 <=2 UA Sq Epi (test code = UA Sq Epi) Occasional /LPF UA Hyal Cast (test code = UA Hyal Cast) 4 <=2 UA Bili (test code = UA Bili) Negative *NA*(01/03/18 4:00 AM) UA Nitrite (test code = UA Nitrite) Negative (01/03/18 4:00 AM) UA Color (test code = UA Color) Yellow *NA*(01/03/18 4:00 AM) UA Turbidity (test code = UA Turbidity) Clear (01/03/18 4:00 AM) [facility] [id number] 10:00:00* Test Item Value Reference Range Interpretation Comme nts U Osmolality (test code = U Osmolality) 335 300-800 U Sodium (test code = U Sodium) 44 [facility]CARDIAC [id number] 08:51:00* Test Item Value Reference Range Interpretation Comme nts CK MB Index (test code = CK MB Index) 4.5 1 <=2.5 CK MB (test code = CK MB) 18.8 0.5-3.6 Troponin-I (test code = Troponin-I) 0.25 <=0.40 Total CK (test code = Total CK) 414 12-191 [facility]CHE[facility] [id number] 08:51:00* Test Item Value Reference Range Interpretation Comme nts Phosphorus (test code = Phosphorus) 2.2 2.5-4.5 Osmolality (test code = Osmolality) 272 280-300 AST (test code = AST) 51 <=37 ALT (test code = ALT) 16 <=65 Alk Phos (test code = Alk Phos) 92 39-136 A/G Ratio (test code = A/G Ratio) 0.8 1 0.7-1.6 Globulin (test code = Globulin) 3.7 2.7-4.2 Bili Total (test code = Bili Total) 0.5 0.2-1.3 Total Protein (test code = T otal Protein) 6.7 6.4-8.4 Albumin Lvl (test code = Albumin Lvl) 3.0 3.5-5.0 B/C Ratio (test code = B/C Ratio) 34 1 6-25 [facility] HospitalBACTERIAL - [id number] 08:17:00* Test Item Value Reference Range Interpretation Comme nts MRSA by PCR (test code = MRSA by PCR) Negative (01/03/18 2:17 AM) [facility] Consult Notes Date/Time Note Provider Source 2024-03-31 10:23:11 Associated Order(s): CONSULT FOOD AND NUTRITION MEDICAL NUTRITION THERAPY ASSESSMENT NOTE MD consult NUTRITION ASSESSMENT: PMH/PSH: Past Medical History: Diagnosis Date Eccgpzr-Lbpqk-Mwbah atrophy CVA (cerebral vascular accident) 2022 HTN (hypertension) Rheumatoid arthritis Spina bifida Past Surgical History: Procedure Laterality Date LEG/ANKLE SURGERY PROC UNLISTED SPINE SURGERY Current Medical Condition: Patient admitted with new onset Afit w/ RVR; transferred to [place]; intubated 03/27 Subjective: Pt self-extubated 03/29, transferred to floor. Seen by AUTO FLEET MANAGER who recs NPO with alternate means of nutrition. Pt without enteral access at this time. RD spoke with provider regarding AUTO FLEET MANAGER recs and recommend obtaining enteral access. RD provided updated EN recs below if pt amenable to alternate means of nutrition. Pt meets criteria for malnutrition. Noted mg slightly low, being replaced at this time. GI and Nutrition Related Findings: Symptoms: None; Last BM: 03/30 Difficulty Chewing/Swallowing: Swallowing and see AUTO FLEET MANAGER note GI tract alteration: none Alternative means of nutrition: None Edema/Ascites: None documented today Wounds: Stage I- right coccyx , wound to tibia Pertinent Medications: oscal-500, D3, abx, lasix, mg sulfate 2g, protonix, polyethylene glycol Lab and Medical Test Results: CBC: Recent Labs 03/30/24 0024 03/31/24 0403 WBC 10.51 9.38 RBC 3.44* 3.82* HGB 10.8* 12.1 HCT 34.2* 37.3 MCV 99.4* 97.6* BMP: Recent Labs 03/29/24 0555 03/30/24 0023 03/30/24 0918 03/31/24 0403 NA 135 132* 132* 132* K 2.9* 3.3* 4.1 3.5 CL 104 100 98 98 TCO2 28 32* 33* 29 AGAP 3 <1* 1* 5 MG 1.6* 2.2 -- 1.6* GLU 123* 90 97 91 BUN 14 8 9 11 CREAT 0.40* 0.37* 0.32* 0.46* CA 7.6* 8.1* 8.1* 8.4* POC Glucose: not updated Anthropometrics: 63 year old female Ht Readings from Last 1 Encounters: 03/29/24 1.448 m (4' 9.01") Admission Wts: 36 kg on 03/24 47.5-51.5 kg on 03/22 44.5 kg on 03/21 BMI: Body mass index is 17.17 kg/m?. (Underweight ) IBW: 48.3 kg for BMI 23 %IBW: 75% Estimated Energy Needs, updated Calories: 3768-5783 kcal/day; 30-35 kcals/kg Current Weight Protein: 50-58 g/day, 1.4-1.6 g/kg Current Weight Fluid: 1500 ml/day or per MD/Medical Team Current Dietary Order(s): NPO Diet. Protein Modulars: Prosource (11g Protein, 40 kcal); Enteral (Tube): Flush before/after with 15 - 30 mL of water. Enteral (Tube) Feeds - Supplement: Vital AF 1.2 Amina (1.2 kcal/mL, 25% Protein, Peptide-Based); Route: Nasogastric Tube; Type of Administration: Continuous; Choose a Continuous Frequency Below. I agree; Start Rate in mLs (not oz): 20; Advance by mL... Food Allergies/Cultural or Latter-Day Preferences: Allergies Allergen Reactions Darvocet A500 [Propoxyphene N-Acetaminophen] Nausea and/or Vomiting Darvon [Propoxyphene] Nausea and/or Vomiting NUTRITION DIAGNOSIS: Nutrition Dx 1: Inadequate oral intake Related to: intubation As Evidenced by: pt NPO/intubated, need for alternative form of nutrition. (Active nutrition diagnosis) (updated) 2. Moderate malnutrition in the context of chronic illness r/t decreased ability to consume sufficient needs as evidenced by inadequate oral intake <75% for >1 month, mild to moderate muscle wasting and fat loss evident upon NFPE (new nutrition diagnosis) NUTRITION INTERVENTION: 1. If aligns with pt GOC, consider obtaining enteral access and initiate EN: Jevity 1.2 @ 10 mL/hr and advance as tolerated to goal rate of 45 mL/hr -provides 1296 kcal and 60g protein -FWF as per MD, minimum 30 mL Q4H for tube patency 2. Oral diet as per AUTO FLEET MANAGER/MD discretion 3. Consider addition of thiamine in setting of malnutrition 4. Monitor electrolytes and replete as needed NUTRITION MONITORING AND EVALUATION: A registered dietitian will f/u as indicated and review patients progress towards nutrition goals, report nutrition related information and to revise the nutrition recommendations and interventions. Goals: 1. Patient will meet >85% of EER within 5 days (Some digression away from goal) Discharge Needs: Undetermined at this time Tomeka Brasher RD, LD Clinical Dietitian Office [facility] 2024-03-30 13:40:00 Associated Order(s): CONSULT SPEECH Speech-Language Pathology Clinical Swallow Evaluation 03/30/2024 Rick Mathur : 1960 Age/Sex: 63 year old female Time IN/OUT: [id number] Referring Physician: Eddie Date of Referral: 03/30/24 Reason for Referral: dysphagia Date of Admission/Onset: 03/27/24 SUBJECTIVE: Patient awake/alert (A&O x person, year), raising her voice for her medication and ice. Patient appears very altered and dysphonic; MD reports appears to be baseline. Patient often shoving AUTO FLEET MANAGER away, declining most po trials. No family at bedside at this time. RN reports despite patient's NPO status, she has been feeding her and she "seems to be fine". OBJECTIVE: is being seen for a clinical swallow evaluation. Per hospital course, "Rick Mathur is a 63 year old female with a PMH of secondary spontaneous PTX s/p chest tube x3 (08/2023, 10/2023, 12/2023), COPD, diastolic CHF, parietal lobe hematoma 2/2 fall (02/2023), Ywnevaf-Fylaf-Pvabb, spina bifida, muscular dystrophy, RA, tobacco use, hx of intracranial bleed who is transferred from [facility] with tachycardia concerning for atrial fibrillation. She initially presented to outside hospital [facility] where she was found to have hypokalemia and afib RVR before being transferred to [facility]. At [facility] she was given IV dilt, metoprolol, digoxin, and amiodarone w/ minimal improvement in rate. She was started on esmolol gtt which improved rate prior to transfer to [place]. TTE revealed LVEF of 15-20% with severe hypokinesis (previous TTE in December 2023 showed EF 55-60% w/ grade 1 diastolic dysfunction). RV dilated with reduced systolic function. LA/RA dilated. PFO/ASD present on doppler. Electrolytes were repleted. Patient with elevated troponins at [facility]. Dr. Beltre read EKG as multifocal atrial tachycardia. Patient transferred to [facility]U for ischemic evaluation. Planned for RHC/LHC. EP consulted. HR has improved on lopressor 50 mg TID and digoxin 250 mcg. 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 HR controlled with PO medications. TTF on 03/25. Patient had chest tube placed for PTX by pulmonology. Patient transferred to ICU after patient became obtunded, intubated on 03/28. Patient started on CAP treatment 03/28.Patient self-extubated on 03/29. Cardiothoracic surgery consulted who will perform Talc pleurodesis. Patient stable for transfer to the floor." Please see MD notes for further detail. Pertinent Imaging: XR CHEST 1 VW Result Date: 03/30/2024 Increasing bibasilar subsegmental atelectasis secondary to low lung volumes. End of Report CHEST 1 VW Result Date: 03/29/2024 Impression: The cardiac silhouette is enlarged. There are diffuse increased interstitial markings consistent with interstitial edema versus interstitial infection. There is a trace right pleural effusion. There is emphysematous change in the lung apices. RL: 4507 KUB Result Date: 03/28/2024 FINDINGS/IMPRESSION: The Dobbhoff tube tip projects over the gastric fundus. A pigtail drain is partially visualized at the right costophrenic angle. Nonobstructive bowel gas pattern. The stomach is moderately gas distended. Preliminary Report Dictated by Resident: Mj Ochoa I, Peter Jerry MD., have reviewed this study and agree with the above report. XR CHEST 1 VW Result Date: 03/28/2024 Trace right pleural effusion. No pneumothorax is identified. End of Report Chest 1 View Result Date: 03/28/2024 Expected appearance after intubation. Lungs are clear. End of Report ACUTE STROKE ANGIOGRAM HEAD Result Date: 03/27/2024 No aneurysm or high-grade stenosis is present in the intracranial or cervical vessels. Unremarkable CT perfusion CT ACUTE STROKE ANGIOGRAM NECK Result Date: 03/27/2024 No aneurysm or high-grade stenosis is present in the intracranial or cervical vessels. Unremarkable CT perfusion CT STROKE PERFUSION W CONTRAST Result Date: 03/27/2024 No aneurysm or high-grade stenosis is present in the intracranial or cervical vessels. Unremarkable CT perfusion CT ACUTE STROKE HEAD WO CONTRAST Result Date: 03/27/2024 No acute intracranial abnormality Redemonstration of remote infarct in the right posterior MCA territory XR CHEST 1 VW Result Date: 03/27/2024 Impression: When compared to the prior film, there is been interval reexpansion of the right lung. There is a stable pigtail chest tube overlying the right lower lobe. The cardiac silhouette is enlarged. The thoracic aorta remains diffusely ectatic. The left hemidiaphragm is elevated. There are linear opacities in the right mid lung and at both lung bases consistent with atelectasis or scarring. RL: 4507 CHEST 1 VW Result Date: 03/27/2024 1. Large right pneumothorax 2. Collapse of the right lung HS:Y CHEST 1 VW Result Date: 03/27/2024 1. Right chest tube placement 2. Persistent large right pneumothorax 3. Collapsed right lung HS:Y CHEST 1 VW Result Date: 03/26/2024 Right PICC tip projects over the mid SVC. Unchanged small right apical pneumothorax and small right pleural effusion. Preliminary Report Dictated by Resident: Zeyad Cobos MD., have reviewed this study and agree with the above report. CT ANGIOGRAM HEAD Result Date: 03/23/2024 No high-grade stenosis or large vessel occlusion within the limitations of the scan. Right pneumothorax. CT ANGIOGRAM NECK Result Date: 03/23/2024 No high-grade stenosis or large vessel occlusion within the limitations of the scan. Right pneumothorax. CT HEAD WO CONTRAST Result Date: 03/23/2024 Late subacute to chronic infarct in the right posterior MCA territory involving the parietotemporal lobes Background moderate global volume loss and mild ischemic small vessel change XR CHEST 1 VW Result Date: 03/23/2024 1. Cardiomegaly 2. No significant interval change HS:Y CHEST 1 VW Result Date: 03/22/2024 Expected appearance of right IJ central catheter. Unchanged small right pneumothorax and pleural effusion. End of Report Previous AUTO FLEET MANAGER Services/Swallow History: None reported nor documented. Past Medical History: Diagnosis Date Msygrui-Lkbhp-Veudp atrophy CVA (cerebral vascular accident) 2022 HTN (hypertension) Rheumatoid arthritis Spina bifida Past Surgical History: Procedure Laterality Date LEG/ANKLE SURGERY PROC UNLISTED SPINE SURGERY General Behavior: Alert, Agitated, Combative, Confused, Decreased ability to follow directions, and Uncooperative Hearing: WFL for speech Respiratory Status: room air Orientation/Cognition: - Patient oriented to: person and time - Response type: verbal, choice of two, and gestures - Follows 1-step commands: No Current Diet Texture/Means of Nutrition: NPO Oral Motor Exam Dentition and Oral Cavity: not able to assess, patient with no command following Face symmetrical at rest; unable to follow commands Jaw symmetrical at rest; unable to follow commands Lips symmetrical at rest; unable to follow commands Tongue unable to/did not assess Palate unable to assess/did not assess Vocal Quality dysphonic Speech decreased intelligibility CLINICAL SWALLOW EVALUATION Swallows on command: No Handles Secretions: Appears to Volitional Cough: does not follow commands/unable to test Spontaneous Cough: No PO trials were administered by AUTO FLEET MANAGER. Patient was provided with minimal sips of ice chips and thin liquid (0) consistencies with the following observations: Oral Stage Anterior leakage of bolus not observed Pocketing of bolus not observed Subjectively prolonged oral phase observed with thin liquid (0) Oral residue not observed Mastication did not test Pharyngeal Stage Subjectively reduced laryngeal elevation Unable to test, patient did not allow AUTO FLEET MANAGER to palpate Coughing or throat clearing not observed Change in voice quality not observed Multiple swallows subjectively not observed Respiratory sufficiency and coordination WFL - no increased work of breathing and/or oxygen sats and respiratory rate remained stable Report of globus sensation unable to report 3 oz water challenge Did not participate Patient/Family/Staff education: Provided verbally. Discussed findings of evaluation, recommendations and AUTO FLEET MANAGER plan of care. Patient/family verbalized understanding and is in agreement with plan of care. RN and referring provider notified of findings and recommendations. Patient/Family goal: did not directly state ASSESSMENT/IMPRESSIONS: Rick Mathur presents with: Diagnosis: possible oropharyngeal dysphagia, though difficult to fully assess given limited participation Etiology of suspected dysphagia/Risk factors for dysphagia: AMS, recent intubation, history of stroke, and COPD Observations/Complaints: no overt s/sx of aspiration and food/liquid refusals Factors raising concern for aspiration or pharyngeal dysphagia: recent intubation, AMS, COPD, and history of CVA Suspected risk for aspiration: moderate Factors increasing risk for aspiration-related respiratory complication such as pneumonia: reduced mobility, dependence on others for oral hygiene and feeding, impaired cognition, and tenuous respiratory status Risk for malnutrition/dehydration or not meeting nutritional needs: yes Additional comments: Difficult to fully assess PO safety at this time given limited participation and incomplete evaluation. Safest recommendation based on limited evaluation would be NPO with consideration for short-term ADRIEL if in alignment with GOC. Even if patient were deemed safe for PO intake, it does not appear that patient would meet nutrition/hydration needs by mouth at this time due to documented and observed food/drink refusals. *Note: aspiration cannot be ruled out nor confirmed without instrumental assessment/imaging. Prognosis: poor for safe po intake due to above findings. RECOMMENDATIONS/GOALS: Diet: Safest recommend would be for patient to remain NPO and medical team consider placement of short-term alternative means of nutrition/hydration (i.e. DH/NGT) if in alignment with patient's GOC. Will ultimately leave PO diet at MD discretion given limited exam/incomplete evaluation. Precautions: - Recommend elevated head of bed and frequent, thorough oral hygiene care due to possible risk for aspiration. - Recommend free water protocol (small amounts of unthickened water/ice chips only - NO FLAVORING) PRN for QOL, despite aspiration risks, with strict adherence to the following precaution: Oral hygiene/care must be completed prior to water/ice intake. Instrumental Swallow Assessment: - Likely indicated in the coming days with improvement in mentation/alertness. - Not indicated at this time. Additional Referrals: - Yes; see below - Recommend probation manager consult if not already following. Continued AUTO FLEET MANAGER services: Recommend AUTO FLEET MANAGER therapy 2-5x/wk for 15-45 min/session while in-house to address the following goals: Swallowing: - Patient will participate in on-going swallow re-evaluation at the bedside to determine readiness/safety for PO vs need/timing for objective swallow assessment Discharge Recommendations: - TBD pending ongoing work-up/progress made while in-house. Ivis Katz MS, [facility]-AUTO FLEET MANAGER Speech Pathology Resident P: [phone] O: [phone] Associated attestation - Preeti Felipe SLP - 03/30/2024 3:24 PM CDT I agree with the assessment and recommendations as completed and documented by Ivis Katz MS, AUTO FLEET MANAGER-Cereal Supervisor. Preeti Felipe MS, [facility]-AUTO FLEET MANAGER Speech Language Pathology Office Number: [phone] Pager: [phone] GILLES Scott [facility] 2024-03-30 08:26:34 Associated Order(s): CONSULT CARDIOTHORACIC SURGERY THORACIC SURGERY CONSULTATION NOTE Requesting Provider: Eddie Date of Service: 03/29/2024 Chief Complaint: recurrent right pneumothorax History of Present Illness: Rick Mathur, 63 year old, female, with history of COPD, secondary PTX s/p multiple chest tubes and chemical/doxy pleurodesis 12/2023, CHF, Tfutfnm-Zpudg-Cplfg disorder, spina bifida, muscular dystrophy, RA, intracranial hemorrhage/CVA who was admitted with Afib with RVR on 03/21/24 and found to have a recurrent right pneumothorax on CXR 03/27/24. Pigtail chest tube placed by pulmonology with re-expansion of lung. Rapid called on 03/27 due to altered mental status, hypoxia, hypotension and transferred to MICU, where she was intubated due to impending respiratory failure. Self extubated yesterday. CT surgery consulted to evaluate for surgical options for recurrent PTX Today, patient reports breathing is improved and on NC. Chest tube currently to water seal. Histories: Past Medical History: Diagnosis Date Vjmertp-Tsttu-Ctsme atrophy CVA (cerebral vascular accident) 2022 HTN (hypertension) Rheumatoid arthritis Spina bifida Past Surgical History: Procedure Laterality Date LEG/ANKLE SURGERY PROC UNLISTED SPINE SURGERY Family History Problem Relation Age of Onset Arthritis Mother Pulmonary Mother Heart Father Coronary Heart Disease Father Social History Socioeconomic History Marital status: Tobacco Use Smoking status: Former Current packs/day: 0.50 Average packs/day: 0.5 packs/day for 50.0 years (25.0 ttl pk-yrs) Types: Cigarettes Passive exposure: Current Smokeless tobacco: Never Vaping Use Vaping status: Never Used Substance and Sexual Activity Alcohol use: Yes Comment: socially Drug use: Not Currently Social History Narrative Lives home alone 11/28/23: Patient was seen by [facility] to Home Consult Team and the below barriers to health were identified: None Identified Narrative: Home and Living Situation Patient states she lives at home alone on the first floor of an apartment complex in [place], [place] for approximately 6-7 years. She states her sister comes over every day and helps her with medications, cooking, and cleaning. States she has a walker and wheelchair at home and has no problem with moving around her home. States her sisters and neighbors regularly bring her food and she has never missed a meal. Relationship Status Patient states she is single. Has 2 sons, ages 45 and 42, who live in [place] and [facility]. States they are healthy and doing well. States she does not see her children and grandchildren as often as she would like, though she did not give a clear reason as to why this is. Transportation States she does not have a car and relies on her sisters to take her to appointments. She states her sisters have no problem transporting her and she has never missed an appointment due to lack of transportation. 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 She states she enjoys working but had to retire in due to pain in her feet. She states she is not currently looking for work. Social Network & Interests She states she has a good support system with her sister and neighbors. States her best friend lives next door and she regularly visits with her. States she can rely on her sisters and neighbors for any assistance. States she enjoys staying at home and watching TV. States she does not like to leave her home unless she has a doctor appointment. Education & Health Literacy States she attended school in [place] and [place] and completed her education up to elementary school (unable to give an exact grade). Patient was unable to list her medications, but knew that she took medications for hypertension, headaches, and pain. She knew that she's scheduled for medication in the morning and afternoon. States her sister comes in the morning and leaves around 3 pm and helps with her medications. States she is left alone after 3 pm and is unable to get a chair lift operator. Outpatient Primary Care States she is seen by Dr. Everett (unable to pronounce name) In [place]. States she is able to make her own follow up appointment and will follow up on her own as needed. Social Determinants of Health Financial Resource Strain: Low Risk (03/22/2024) Overall Financial Resource Strain (CARDIA) Difficulty of Paying Living Expenses: Not hard at all Food Insecurity: No Food Insecurity (03/22/2024) Hunger Vital Sign Worried About Running Out of Food in the Last Year: Never true Ran Out of Food in the Last Year: Never true Transportation Needs: No Transportation Needs (03/22/2024) PRAPARE - Transportation Lack of Transportation (Medical): No Lack of Transportation (Non-Medical): No Physical Activity: Inactive (03/22/2024) Exercise Vital Sign Days of Exercise per Week: 0 days Minutes of Exercise per Session: 0 min Social Connections: Unknown (03/22/2024) Social Connection and Isolation Panel [NHANES] Frequency of Communication with Friends and Family: More than three times a week Marital Status: Housing Stability: Low Risk (03/22/2024) Housing Stability Vital Sign Unable to Pay for Housing in the Last Year: No Number of Places Lived in the Last Year: 1 Unstable Housing in the Last Year: No Allergies: Allergies Allergen Reactions Darvocet A500 [Propoxyphene N-Acetaminophen] Nausea and/or Vomiting Darvon [Propoxyphene] Nausea and/or Vomiting Review of Systems (BOLDED if positive. Otherwise negative.) Constitutional: fever, chills, unintended weight loss HEENT:runny nose, sore throat Cardiovascular: chest pain, palpitations Respiratory: cough, shortness of breath Gastrointestinal: nausea, vomiting, changes in bowel habits Genitourinary: dysuria, hematuria Integumentary: rashes, itching Neurological: numbness, memory trouble Endocrine: diabetes, thyroid issues Hematologic: easy bruising, no easy bleeding Musculoskeletal: back pain, joint pain Psychiatric: changes in mood Physical Exam BP 111/65 | Pulse 86 | Temp 37.1 ?C (98.8 ?F) | Resp 23 | Ht 1.448 m (4' 9.01") | Wt 36 kg (79 lb 5.9 oz) | SpO2 100% | BMI 17.17 kg/m? General: alert and oriented in no apparent distress. CV: hemodynamically stable Resp: mildly increased work of breathing on NC, equal bilateral chest rise, breath sounds bilaterally. Chest tube in place in right chest, no air leak with valsalva on suction. Placed back to water seal. MSK: contractures of upper and lower extremities Laboratory: CBC BMP PT/INR WBC (10*3/?L) Date Value 03/27/2024 8.68 NA (mmol/L) Date Value 03/29/2024 135 No results found for: "PT" RBC (10*6/?L) Date Value 03/27/2024 3.97 K (mmol/L) Date Value 03/29/2024 2.9 (LL) INR (no units) Date Value 03/27/2024 1.0 PLT (10*3/?L) Date Value 03/27/2024 168 CALCIUM (mg/dL) Date Value 03/29/2024 7.6 (L) HGB (g/dL) Date Value 03/27/2024 12.7 CL (mmol/L) Date Value 03/29/2024 104 aPTT HCT (%) Date Value 03/27/2024 38.1 BUN (mg/dL) Date Value 03/29/2024 14 APTT Patient (Seconds) Date Value 03/27/2024 26 CREATININE (mg/dL) Date Value 03/29/2024 0.40 (L) Radiology: 03/29/2024 CXR Impression: The cardiac silhouette is enlarged. There are diffuse increased interstitial markings consistent with interstitial edema versus interstitial infection. There is a trace right pleural effusion. There is emphysematous change in the lung apices. Assessment/Recommendations: 63 year old female with recurrent secondary spontaneous pneumothorax. Due to multiple medical conditions and worsening heart failure, she is a poor operative candidate. Last admission we had placed doxycycline which was not successful. Currently no air leak. Will place talc pleurodesis today for pleurodesis. Will need to keep chest tube clamped for 3 hours after placement and then afterwards keep to -20 suction for 2 days for pleural apposition. Giuseppe Oneil MD Cardiothoracic surgery fellow, PGY-7 Associated attestation - Phyllis Quiroz MD - 03/30/2024 2:31 PM CDT Agree with Dr. Oneil's note. [facility] 2024-03-28 13:04:08 Associated Order(s): CONSULT PS MARIAMA/SPECIALTY BEDS WOCN NOTE Consult for:Dolphin ASSESSMENT:Serjio 11, Ht/Wt within parameters for safe handling. BMI 17.17Kg. 63 year old female right handed with the following stroke factors: secondary spontaneous PTX s/p chest tube x3 (08/2023, 10/2023, 12/2023), COPD, diastolic CHF, parietal lobe hematoma 2/2 fall (02/2023), Sbzqegl-Qqvqs-Wkchb, spina bifida, muscular dystrophy, RA, tobacco use, hx of intracranial bleed currently intubated in the ICU for AMS status post intubation. Neurology consulted for AMS and concerns for RUE tremors and posturing. Approved: Dolphin mattress Continue to turn and reposition pt every 2 hours while on specialty bed. MARIAMA Notified to deliver bed. Low air loss surfaces require 3 or LESS single layers of linen underneath the patient to optimize the surface. A single fitted sheet, a single layer draw sheet or Comfort glide sheet and use the disposable underpad instead of the cloth chux. More layers reduce the ability to redistribute pressure points and do not allow for air circulation. Adult diapers and plastic backed pads are not recommended for patients on low air loss beds. Tila Sanders BSN RN CWOCN Wound Ostomy Continence Nurse Adult Patient Care Service [phone] SARAH-[facility] 2024-03-27 19:54:58 STROKE SERVICE CONSULT DATE OF SERVICE: 03/27/2024 19:55 REASON FOR CONSULT: AMS HISTORY OF PRESENT ILLNESS Rick Mathur is a 63 year old female right handed with the following stroke factors: secondary spontaneous PTX s/p chest tube x3 (08/2023, 10/2023, 12/2023), COPD, diastolic CHF, parietal lobe hematoma 2/2 fall (02/2023), Nvifjdi-Rsfme-Flyfl, spina bifida, muscular dystrophy, RA, tobacco use, hx of intracranial bleed currently intubated in the ICU for AMS status post intubation. Neurology consulted for AMS and concerns for RUE tremors and posturing. Chain of events: Collateral hx obtained from primary team and the [facility] nurse. Pt was altered the entire day today. Had chest tube placed 2/2 right sided pneumothorax with Pulm crit team around 1 pm Continued to be altered and was intubated on the floor for airway protection. After which pt stroke code was called for AMS, RUE tremors and concerns for posturing. Of note pt was also administered multiple doses of norco after the Chest tube placement which also accounted for her altered cognition. Antiplatelets: Yes Anticoagulations: Yes Tobacco abuse: No Alcohol abuse: No Drug abuse: No Previous stroke: No Body mass index is 17.17 kg/m?. STROKE DOCUMENTATION Stroke Activation - Date: 03/27/24 Stroke Activation - Time: 1820 Physician arrival at bedside - Date: 03/27/24 Physician arrival at bedside - Time: 1830 (Right after triaging pt with LVO) CT-Head without contrast read by Neurology: 1844 Last seen normal: Last known well - Date: 03/27/24 Last known well - Time: 0000 (>8 hours) Wake up stroke: No NIH STROKE SCALE NIHSS TOTAL: 0 NIHSS Interval: Admission LOC: 0 Alert: Keenly Responsive LOC QUESTIONS: 0 Answers Both Questions Correctly (Pt intubated and sedated) LOC COMMANDS: 0 Performs Both Tasks Correctly BEST GAZE: 0 Normal VISUAL: 0 No Visual Loss FACIAL PALSY: 0 Normal MOTOR ARM-LEFT: 0 No Drift MOTOR ARM-RIGHT: 0 No Drift MOTOR LEG-LEFT: 0 No Drift MOTOR LEG-RIGHT: 0 No Drift LIMB ATAXIA: 0 Absent SENSORY: 0 Normal BEST LANGUAGE: 0 No Aphasia DYSARTHRIA: 0 Normal EXTINCTION AND INATTENTION (FORMERLY NEGLECT): 0 No Abnormalty Dysphagia Screen: Dysphagia Screen Step 1 (Exclusion Criteria): Pass (none of the above) Dysphagia Screen Step 2 (Management of secretions): Pass (none of the above) Dysphagia Screen Step 3 (3-ounce water swallow challenge): Pass (none of the above) IV Alteplase: Was IV thrombolytic therapy given?: No Reason no IV thrombolytic therapy initiated: Arrival > 4.5 hours from symptom onset;Non- disabiling If IV Thrombolytic therapy was indicated and given as a standard of care was the patient/family informed of benefits of treatment and risk such as hemorrhage and/or angioedema?: (not recorded) Was there a delay in door to IV thrombolytic over 30 minutes?: (not recorded) Reason (s): (not recorded) ICH/SAH ICH/SAH: No Endovascular Intervention: Was Endovascular Intervention Performed?: No Reason patient is not a candidate for endovascular intervention: Imaging: no large vessel occlusion PRE- ADMISSION MODIFIED [place] SCORE 0 - No symptoms at all PAST MEDICAL HISTORY Past Medical History: Diagnosis Date Ogoruca-Wnddj-Qsfuj atrophy CVA (cerebral vascular accident) 2022 HTN (hypertension) Rheumatoid arthritis Spina bifida PAST SURGICAL HISTORY Past Surgical History: Procedure Laterality Date LEG/ANKLE SURGERY PROC UNLISTED SPINE SURGERY FAMILY HISTORY Family History Problem Relation Age of Onset Arthritis Mother Pulmonary Mother Heart Father Coronary Heart Disease Father SOCIAL HISTORY Social History Socioeconomic History Marital status: Tobacco Use Smoking status: Former Current packs/day: 0.50 Average packs/day: 0.5 packs/day for 50.0 years (25.0 ttl pk-yrs) Types: Cigarettes Passive exposure: Current Smokeless tobacco: Never Vaping Use Vaping status: Never Used Substance and Sexual Activity Alcohol use: Yes Comment: socially Drug use: Not Currently Social History Narrative Lives home alone 11/28/23: Patient was seen by [facility] Home Consult Team and the below barriers to health were identified: None Identified Narrative: Home and Living Situation Patient states she lives at home alone on the first floor of an apartment complex in [place], [place] for approximately 6-7 years. She states her sister comes over every day and helps her with medications, cooking, and cleaning. States she has a walker and wheelchair at home and has no problem with moving around her home. States her sisters and neighbors regularly bring her food and she has never missed a meal. Relationship Status Patient states she is single. Has 2 sons, ages 45 and 42, who live in [facility]. States they are healthy and doing well. States she does not see her children and grandchildren as often as she would like, though she did not give a clear reason as to why this is. Transportation States she does not have a car and relies on her sisters to take her to appointments. She states her sisters have no problem transporting her and she has never missed an appointment due to lack of transportation. 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 She states she enjoys working but had to retire in due to pain in her feet. She states she is not currently looking for work. Social Network & Interests She states she has a good support system with her sister and neighbors. States her best friend lives next door and she regularly visits with her. States she can rely on her sisters and neighbors for any assistance. States she enjoys staying at home and watching TV. States she does not like to leave her home unless she has a doctor appointment. Education & Health Literacy States she attended school in [place] and [place] and completed her education up to elementary school (unable to give an exact grade). Patient was unable to list her medications, but knew that she took medications for hypertension, headaches, and pain. She knew that she's scheduled for medication in the morning and afternoon. States her sister comes in the morning and leaves around 3 pm and helps with her medications. States she is left alone after 3 pm and is unable to get a chair lift operator. Outpatient Primary Care States she is seen by Dr. Everett (unable to pronounce name) In [place]. States she is able to make her own follow up appointment and will follow up on her own as needed. Social Determinants of Health Financial Resource Strain: Low Risk (03/22/2024) Overall Financial Resource Strain (CARDIA) Difficulty of Paying Living Expenses: Not hard at all Food Insecurity: No Food Insecurity (03/22/2024) Hunger Vital Sign Worried About Running Out of Food in the Last Year: Never true Ran Out of Food in the Last Year: Never true Transportation Needs: No Transportation Needs (03/22/2024) PRAPARE - Transportation Lack of Transportation (Medical): No Lack of Transportation (Non-Medical): No Physical Activity: Inactive (03/22/2024) Exercise Vital Sign Days of Exercise per Week: 0 days Minutes of Exercise per Session: 0 min Social Connections: Unknown (03/22/2024) Social Connection and Isolation Panel [NHANES] Frequency of Communication with Friends and Family: More than three times a week Marital Status: Housing Stability: Low Risk (03/22/2024) Housing Stability Vital Sign Unable to Pay for Housing in the Last Year: No Number of Places Lived in the Last Year: 1 Unstable Housing in the Last Year: No Reviewed patient's family, surgical and social hx. HOME MEDICATIONS Medications Prior to Admission Medication Sig Dispense Refill Last Dose ergocalciferol, vitamin d2, (VITAMIN D2) 1,250 mcg (50,000 unit) capsule Take 1 capsule by mouth weekly. 03/21/2024 omeprazole 20 mg capsule Take 1 capsule by mouth. 03/21/2024 furosemide 20 mg tablet Take 1 tablet by mouth in the morning. 03/21/2024 gabapentin 300 mg capsule Take 400 mg by mouth in the morning and 400 mg at noon and 400 mg in the evening. 03/21/2024 diyrcozhia-eyivxxj-mcfzhrbk (FIORINAL) 50-325-40 mg per capsule Take 1 capsule by mouth every 4 (four) hours as needed for Pain. 03/21/2024 HYDROcodone-acetaminophen 10-325 mg tablet Take 1 tablet by mouth every 8 (eight) hours as needed. 03/21/2024 metoprolol succinate 25 mg CSpX Take 25 mg by mouth 3 (three) times daily. 03/21/2024 cyclobenzaprine 5 mg tablet Take 1 tablet by mouth 3 (three) times daily as needed for Muscle Spasms. 90 tablet 2 HOSPITAL MEDICATIONS Current Facility-Administered Medications Medication Dose Route Frequency Last Rate Last Admin chlorhexidine (PERIDEX) 0.12 % mouthwash 15 mL 15 mL Oral (Swish And Spit Out) BID dexMEDEtomidine 200 mcg in 0.9 % NaCl 50 mL (PRECEDEX) RTU IV infusion 0.2-1.5 mcg/kg/hr IV Infusion TITRATE 1.8 mL/hr at 03/27/24 1816 0.2 mcg/kg/hr at 03/27/24 1816 digoxin (LANOXIN) tablet 250 mcg 250 mcg Oral DAILY 250 mcg at 03/27/24 1428 NaCl 0.9% (NS) injection 5 mL 5 mL Slow IV Push PRN - SEE INSTRUCTIONS phenylephrine (VAZCULEP) 10 mg in NaCl 0.9% (NS) 250 mL infusion 0.5-2 mcg/kg/min IV Infusion TITRATE 27 mL/hr at 03/27/24 194 0.5 mcg/kg/min at 03/27/241944 dextrose 10% (D10W) bolus infusion 125 mL 125 mL Intravenous PRN - SEE INSTRUCTIONS dextrose 50 % in water (D50W) injection 25 mL 25 mL Slow IV Push PRN glucagon (GLUCAGEN DIAGNOSTIC KIT) injection 1 mg 1 mg Intramuscular PRN insulin lispro (human) (HumaLOG U-100) injection 2 Units 2 Units Subcutaneous PRN - SEE INSTRUCTIONS sodium zirconium cyclosilicate (LOKELMA) 10 gram packet 10 g 10 g Oral TID 10 g at 03/27/24 1458 lidocaine 1% (PF) (XYLOCAINE) injection 5 mL 5 mL Subcutaneous PRN NaCl 0.9% (NS) injection 10 mL 10 mL Slow IV Push PRN furosemide (LASIX) tablet 80 mg 80 mg Oral QAM+PM 80 mg at 03/27/24 0859 metoprolol succinate XL (TOPROL XL) tablet 100 mg 100 mg Oral BID 100 mg at 03/27/24 0859 ramelteon (ROZEREM) tablet 8 mg 8 mg Oral QHS 8 mg at 03/26/242028 heparin (porcine) injection 5,000 Units 5,000 Units Subcutaneous Q12H 5,000 Units at 03/27/24 0900 acetaminophen (TYLENOL) tablet 650 mg 650 mg Oral Q6HPRN aspirin EC tablet 81 mg 81 mg Oral DAILY 81 mg at 03/27/24 0900 atorvastatin (LIPITOR) tablet 40 mg 40 mg Oral QHS 40 mg at 03/26/249 calcium carbonate (OSCAL-500) tablet 500 mg 500 mg Oral BID MEALS 500 mg at 03/27/24 0859 cholecalciferol (vitamin D3) tablet 2,000 Units 2,000 Units Oral DAILY 2,000 Units at 03/27/24 0858 metoprolol (LOPRESSOR) injection 5 mg 5 mg Intravenous Q6HPRN NaCl 0.9% (NS) injection 10 mL 10 mL Slow IV Push PRN gabapentin (NEURONTIN) capsule 400 mg 400 mg Oral TID 400 mg at 03/27/24 1428 pantoprazole (PROTONIX) EC tablet 40 mg 40 mg Oral DAILY 40 mg at 03/27/24 0859 ALLERGY Allergies Allergen Reactions Darvocet A500 [Propoxyphene N-Acetaminophen] Nausea and/or Vomiting Darvon [Propoxyphene] Nausea and/or Vomiting REVIEW OF SYSTEMS General: (-) fever, (-) chills, (-) weight change, (-) dizziness, (-) fatigue, (-) change in appetite Skin: (-) rash, (-) lesion HEENT: (-) headache, (-) change in hearing, (-) change in vision, (-) nasal discharge, (-) sore throat Neck: (-) pain, (-) difficulty swallowing, (-) mass Heme: (-) bleeding disorder Resp: (-) cough, (-) shortness of breath, (-) dyspnea on exertion Cardio: (-) chest pain, (-) palpitations, (-) syncope GI: (-) abdominal pain, (-) nausea, (-) vomiting, (-) diarrhea, (-) constipation, (-) melena, (-) hematochezia, (-) hematemesis : (-) dysuria, (-) hematuria, (-) increased frequency, (-) difficulty urinating, (-) difficulty initiating Endo: (-) heat intolerance, (-) diabetes, (-) cold intolerance, (-) polyuria, (-) polydipsia, (-) renal insufficiency, (-) thyroid disease Neuro: (-) numbness, (-) tingling, (-) weakness Back: (-) pain, (-) spasms DANNY: (-) muscle pain, (-) joint pain, (-) claudication Psych: (-) anxiety, (-) depression, (-) psychiatric disorder PHYSICAL EXAM Vitals: 03/27/24 1807 03/27/24 1820 03/27/24 1825 03/27/24 1830 BP: (!) 67/53 93/67 112/78 121/85 BP Location: Patient Position: Pulse: 80 Resp: 17 17 17 13 Temp: TempSrc: SpO2: Weight: Height: GEN: pleasant, cooperative CVS: RRR, no carotid bruit CHEST: Intubated of sedation ABD: Soft, NTTP NEURO: Mental Status: Alert. Follows basic commands. Cranial Nerve: Pupils are equal, round, and reactive to light. Visual arndt are intact to confrontation. Normal fundi. Ocular movements are intact. Face is symmetric at rest and with activation with intact sensation throughout. Hearing intact to finger rub bilaterally. Muscles of tongue and palate activate symmetrically.. Strength is full in sternocleidomastoid and trapezius bilaterally. Motor: Muscle bulk and tone are normal. Strength is 3/5 in all four extremities both proximally and distally. Sensory: Sensation is intact to light touch, Reflexes: 2+ and symmetric at the biceps, triceps, brachioradialis, patella, and Achilles bilaterally. Plantar response is flexor bilaterally. Coordination: AWILDA Gait: deferred LABS Recent Results (from the past 24 hour(s)) N-Terminal Pro-Bnp Collection Time: 03/27/24 4:28 AM Result Value Ref Range NT-proBNP 11,100 (H) <=125 pg/mL Basic Metabolic Panel (NA, K, CL, CO2, GLUCOSE, BUN, CREATININE, CA) Collection Time: 03/27/24 4:28 AM Result Value Ref Range NA 133 (L) 135 - 145 mmol/L K 5.3 (H) 3.5 - 5.0 mmol/L CL 88 (L) 98 - 108 mmol/L CO2 TOTAL 40 (H) 23 - 31 mmol/L AGAP 5 2 - 16 BUN 20 7 - 23 mg/dL GLUCOSE 100 70 - 110 mg/dL CREATININE 0.63 0.50 - 1.04 mg/dL CALCIUM 9.0 8.6 - 10.6 mg/dL eGFR 98.6 mL/min/1.73m2 Cbc with Diff Collection Time: 03/27/24 4:28 AM Result Value Ref Range WBC 7.27 4.30 - 11.10 10*3/?L RBC 4.36 3.93 - 5.25 10*6/?L HGB 13.3 11.6 - 15.0 g/dL HCT 42.3 35.7 - 45.2 % MCV 97.0 (H) 80.6 - 95.5 fL MCH 30.5 25.9 - 32.8 pg MCHC 31.4 (L) 31.6 - 35.1 g/dL RDW-SD 52.4 (H) 39.0 - 49.9 fL RDW-CV 14.9 12.0 - 15.5 % PLT 181 166 - 358 10*3/?L MPV 11.1 9.5 - 12.9 fL NRBC/100 WBC 0.0 0.0 - 10.0 /100 WBCs NRBC x10 3 <0.01 10*3/?L GRAN MAT (NEUT) % 75.1 % IMM GRAN % 0.40 % LYMPH % 10.6 % MONO % 9.9 % EOS % 3.4 % BASO % 0.6 % GRAN MAT x10 3 (ANC) 5.46 1.88 - 7.09 10*3/uL IMM GRAN x10 3 0.03 0.00 - 0.06 10*3/uL LYMPH x10 3 0.77 (L) 1.32 - 3.29 10*3/uL MONO x10 3 0.72 0.33 - 0.92 10*3/uL EOS x10 3 0.25 0.03 - 0.39 10*3/uL BASO x10 3 0.04 0.01 - 0.07 10*3/uL Magnesium Collection Time: 03/27/24 4:28 AM Result Value Ref Range MAGNESIUM 1.6 (L) 1.7 - 2.4 mg/dL Basic Metabolic Panel (NA, K, CL, CO2, GLUCOSE, BUN, CREATININE, CA) Collection Time: 03/27/24 12:21 PM Result Value Ref Range NA 129 (L) 135 - 145 mmol/L K 5.9 (H) 3.5 - 5.0 mmol/L CL 88 (L) 98 - 108 mmol/L CO2 TOTAL 38 (H) 23 - 31 mmol/L AGAP 3 2 - 16 BUN 21 7 - 23 mg/dL GLUCOSE 104 70 - 110 mg/dL CREATININE 0.59 0.50 - 1.04 mg/dL CALCIUM 8.5 (L) 8.6 - 10.6 mg/dL eGFR 100.2 mL/min/1.73m2 Basic Metabolic Panel (NA, K, CL, CO2, GLUCOSE, BUN, CREATININE, CA) Collection Time: 03/27/24 5:00 PM Result Value Ref Range NA 128 (L) 135 - 145 mmol/L K 4.5 3.5 - 5.0 mmol/L CL 86 (L) 98 - 108 mmol/L CO2 TOTAL 36 (H) 23 - 31 mmol/L AGAP 6 2 - 16 BUN 23 7 - 23 mg/dL GLUCOSE 90 70 - 110 mg/dL CREATININE 0.52 0.50 - 1.04 mg/dL CALCIUM 8.1 (L) 8.6 - 10.6 mg/dL eGFR 103.3 mL/min/1.73m2 Hepatic Function Panel (21063) (ALB,T.PRO,BILI T,BU/BC,ALT,AST,ALK PHOS) Collection Time: 03/27/24 5:00 PM Result Value Ref Range TOTAL BILI 0.7 0.1 - 1.1 mg/dL BILI UNCON 0.2 0.1 - 1.1 mg/dL BILI CONJ 0.0 0.0 - 0.3 mg/dL T PROTEIN 6.1 (L) 6.3 - 8.2 g/dL ALBUMIN 3.1 (L) 3.5 - 5.0 g/dL ALK PHOS 104 34 - 122 U/L ALTv 23 5 - 35 U/L AST(SGOT) 63 (H) 13 - 40 U/L Magnesium Collection Time: 03/27/24 5:00 PM Result Value Ref Range MAGNESIUM 2.2 1.7 - 2.4 mg/dL POCT GLUCOSE (AUTOMATED) Collection Time: 03/27/24 5:07 PM Result Value Ref Range POCT GLU 94 70 - 110 mg/dL AC Panel 20 + Lactic Acid Collection Time: 03/27/24 5:28 PM Result Value Ref Range PH 7.39 7.35 - 7.45 PCO2 65 (H) 35 - 45 mmHg PO2 152 (H) 80 - 100 mmHg HCO3 39 (H) 22 - 26 mEq/L BE 10.9 (H) -3.0 - 3.0 mEq/L THB 13.2 12.0 - 16.0 g/dL %O2HB 98.0 94.0 - 99.0 % %COHB ART 0.6 0.0 - 1.5 % %METHB ART 0.3 (L) 0.4 - 1.5 % VOL%O2 ART 18.5 15.0 - 23.0 % NA 130 (L) 135 - 145 mmol/L K+ 4.0 3.5 - 5.0 mmol/L AC CA IONZ 4.40 (L) 4.50 - 5.30 mg/dL GLUCOSE 91 70 - 110 mg/dL LACTIC ACID 0.79 0.50 - 2.20 mmol/L POCT GLUCOSE (AUTOMATED) Collection Time: 03/27/24 6:28 PM Result Value Ref Range POCT GLU 83 70 - 110 mg/dL Prothrombin Time / INR Collection Time: 03/27/24 6:29 PM Result Value Ref Range PROTIME PATIENT 10.7 10.1 - 12.6 Seconds INR 1.0 aPTT Collection Time: 03/27/24 6:29 PM Result Value Ref Range APTT Patient 26 26 - 36 Seconds Profile / Hemogram Collection Time: 03/27/24 6:29 PM Result Value Ref Range WBC 8.68 4.30 - 11.10 10*3/?L RBC 3.97 3.93 - 5.25 10*6/?L HGB 12.7 11.6 - 15.0 g/dL HCT 38.1 35.7 - 45.2 % MCH 32.0 25.9 - 32.8 pg MCV 96.0 (H) 80.6 - 95.5 fL MCHC 33.3 31.6 - 35.1 g/dL PLT 168 166 - 358 10*3/?L MPV 11.1 9.5 - 12.9 fL RDW-CV 14.6 12.0 - 15.5 % RDW-SD 51.3 (H) 39.0 - 49.9 fL NRBC x10 3 <0.01 10*3/?L NRBC/100 WBC 0.0 0.0 - 10.0 /100 WBCs IPF % Troponin I Collection Time: 03/27/24 6:29 PM Result Value Ref Range TROPONIN I 0.059 (H) <=0.034 ng/mL Basic Metabolic Panel (NA, K, CL, CO2, Glucose, BUN, Creatinine, CA) Collection Time: 03/27/24 6:29 PM Result Value Ref Range NA 132 (L) 135 - 145 mmol/L K 4.4 3.5 - 5.0 mmol/L CL 87 (L) 98 - 108 mmol/L CO2 TOTAL 40 (H) 23 - 31 mmol/L AGAP 5 2 - 16 BUN 23 7 - 23 mg/dL GLUCOSE 86 70 - 110 mg/dL CREATININE 0.60 0.50 - 1.04 mg/dL CALCIUM 8.2 (L) 8.6 - 10.6 mg/dL eGFR 99.8 mL/min/1.73m2 STROKE LABS No results found for: "HGBA1C" LDL CHOL (mg/dL) Date Value 03/23/2024 99 CHOL (mg/dL) Date Value 03/23/2024 246 (H) TSH (mIU/L) Date Value 03/22/2024 2.48 Recent Labs 03/23/24 0314 03/27/24 1829 TROPNI 0.136* 0.059* RADIOLOGY CT ACUTE STROKE ANGIOGRAM HEAD Result Date: 03/27/2024 No aneurysm or high-grade stenosis is present in the intracranial or cervical vessels. Unremarkable CT perfusion CT ACUTE STROKE ANGIOGRAM NECK Result Date: 03/27/2024 No aneurysm or high-grade stenosis is present in the intracranial or cervical vessels. Unremarkable CT perfusion CT STROKE PERFUSION W CONTRAST Result Date: 03/27/2024 No aneurysm or high-grade stenosis is present in the intracranial or cervical vessels. Unremarkable CT perfusion CT ACUTE STROKE HEAD WO CONTRAST Result Date: 03/27/2024 No acute intracranial abnormality Redemonstration of remote infarct in the right posterior MCA territory XR CHEST 1 VW Result Date: 03/27/2024 Impression: When compared to the prior film, there is been interval reexpansion of the right lung. There is a stable pigtail chest tube overlying the right lower lobe. The cardiac silhouette is enlarged. The thoracic aorta remains diffusely ectatic. The left hemidiaphragm is elevated. There are linear opacities in the right mid lung and at both lung bases consistent with atelectasis or scarring. RL: [id number] CHEST 1 VW Result Date: 03/27/2024 1. Large right pneumothorax 2. Collapse of the right lung HS:Y CHEST 1 VW Result Date: 03/27/2024 1. Right chest tube placement 2. Persistent large right pneumothorax 3. Collapsed right lung HS:Y [employer]SMENT [employer] PLAN Rick Mathur is a 63 year old female with PMHx of the following stroke risk factors: secondary spontaneous PTX s/p chest tube x3 (08/2023, 10/2023, 12/2023), COPD, diastolic CHF, parietal lobe hematoma 2/2 fall (02/2023), Quqhqbb-Twvyx-Qvszf, spina bifida, muscular dystrophy, RA, tobacco use, hx of intracranial bleed currently intubated in the ICU for AMS. Neurology consulted for AMS and concerns for RUE tremors and concern for posturing.prior to intubation. LSN: >12 hours, NIHSS 0. CT head no acute abnormality, CTA head and neck without LVO. On arrival of stroke team pt was already intubated for airway protection. Team had used rocuronium and etomidate. No cough/gag corneal noticed. Exam initially limited due to choice of sedation. Imaging including CTP unremarkable. As sedation stared to wean off. Pt was somewhat awake. Brainstem intact. Antigravity on UE at least a 3/5, 2/5 at least on the LE. Exam similar to what we were consulted on 03/23. Was following commands. Her AMS highly likely due to multiple norco administration in addition to the chronic hypoxic respiratory failure and diastolic CHF ejection fraction of 15-20%. List of Problems: AMS Hx of IPH EF of 15-20% Diastolic CHF - No further stroke w/u - MRI when able - EEG - neurology consult Discussed with Dr. Cruz and Dr Ko, Neurology Faculty Bijan Weller MD PGY2 Neurology Stroke pager: [phone] Associated attestation - Gary Grande MD - 03/29/2024 8:16 AM CDT I saw and examined the patient with the resident and neurology consult team on 03/28/2024. I agree with the findings and plans as outlined in the resident note. I actively participated in the decision making process and formulated the plan with the resident. Clinical observed right arm tremor is unlikely to be a focal/partial seizure, monitoring, and no EEG and AEDs are indicated for now. Gary Grande M.D., Ph.D., HORTENCIA, WALTER Professor, Neurology -NEUROLOGY [facility] 2024-03-27 10:50:00 Associated Order(s): CONSULT PHYSICAL THERAPY WOUND CARE Images from the original note were not included. Pt agreeable to PT for wound care. Patient met semi reclined in bed and family at bedside and later medical team walked in . Recommended Dressings Application/Instructions: R Anterior Leg -Cleanse wound using Vashe soaked gauze and gently pat dry -Apply Mepilex AG non border foam -Loosely wrap with kerlix gauze R 3rd and 4th toe copiously paint with betadine daily Change 3x/week or more often for soiling or >50% strike through drainage Supplies needed: Mepilex AG non border foam Kerlix gauze betadine PHYSICAL THERAPY WOUND CARE EVALUATION Consult received, chart reviewed and evaluation complete this date. Patient referred to PT for evaluation and treatment of: Pain, Integument compromise, and Non-healing wound. Patient is a 63 year old female admitted for New onset a-fib [I48.91] Heart failure [I50.9]. PT Recommendations: Continued skilled PT for wound care for wound cleaning to aide in removal of bacterial bioburden, selective, non excisional debridement of necrotic tissue to R anterior leg, and monitoring healing progression of wound(s) and updated dressing recommendations if indicated, Implement meiplex AG non border foam and loosely wrap with kerlix gauze, copiously pain stable eschar wounds on R 3rd and 4th toe, and Limit bed layers to one draw sheet (not folded blanket) and one paper chux pad (no cloth chux pad). Wound Description: patient presents with venous insufficiency wounds located on R lower leg. partial thickness wound and venous insufficiency wound Location Size (cm) length=longest Drainage amount and type Necrotic tissue Granulation tissue Odor Periwound Wound photo R anterior leg 10 x 4.1 x 0.01 minimal and serosanguinous 10% eschar black and brown and slough yellow 90% Bright beefy red No bright red or blanches to touch and irritated TOTAL: 41cm2 Treatment Provided: wound cleaning performed via: Vashe soaked gauze ~ 5 minutes, selective, non excisional debridement of R anterior leg performed using forceps, dressings applied as follows: applied mepilex AG non border and loosely wrapped , minimal bleeding occurred and ceased at treatments end, and written instruction in dressing application placed in Nursing Sticky Notes for nurses to follow.. Aseptic technique was performed and unused materials disposed of in compliance with hospital standards. No materials or instruments left in the bed. After session, patient semi reclined in bed. Call button provided. Family and medical team in room PLAN OF CARE: While in the hospital, PT will follow patient at least 2 times per week,once or twice a day, per patient's tolerance and needs. See below for complete details. Admit Date: 03/21/2024 Hospital Diagnosis:New onset a-fib [I48.91] Heart failure [I50.9] PT Diagnosis: Weakness, Pain, Abnormality of gait and balance, and Integument compromise Allergy precautions Darvocet A500 [propoxyphene N-acetaminophen] Low Nausea and/or Vomiting Darvon [propoxyphene] Low Nausea and/or Vomiting Weight Bearing Precaution: NA General Precautions: PPE used:Gloves, General, Fall, Cardiac, Logroll,Purewick catheter, IV x2, oxygen: Nasal canula Bracing/Cast present or required:prevalon boots PMH: Past Medical History: Diagnosis Date Masvsyu-Udhtx-Sgmsm atrophy CVA (cerebral vascular accident) 2022 HTN (hypertension) Rheumatoid arthritis Spina bifida PSH: Past Surgical History: Procedure Laterality Date LEG/ANKLE SURGERY PROC UNLISTED SPINE SURGERY Nutritional status: HGB Date Value Ref Range Status 03/27/2024 13.3 11.6 - 15.0 g/dL Final ALBUMIN Date Value Ref Range Status 03/25/2024 3.2 (L) 3.5 - 5.0 g/dL Final Prior Living Situation: in a apartment and with her sister Prior level of Mobility: requires assistance with transfers, requires assistance with bed mobility, uses w/c primarily Subjective: pt reports that she is ok and that she loves everyone Patient/Family Goals: family would like her wounds to heal Patient/Family verbalizes understanding of condition: Yes PAIN: -Pain Location: diffuse/generalized -Pain rating before treatment: does not rate, After treatment: does not rate -Pain Management: Nursing Notified, Decreased movement aides in some pain reduction, Use of assistive device aides in pain reduction during mobility, and Repositioning Provided COMMUNICATION Primary Language: Gibraltarian Able to Verbalize needs: Yes Vision:glasses Hearing:hard of hearing ORIENTATION/COGNITION: Oriented to: person, place, and situation Follows Commands: Yes NEUROLOGICAL Light Touch: within functional limits bilateral Tone: wnl RANGE OF MOTION: bilateral LE wnl, PROBLEM LIST: Decline in bed mobility, Decline in transfers, Decreased strength, Decreased endurance, Safety awareness deficits, Pain, Decreased Motor Planning, and Integument compromise ASSESSMENT: Patient is a 63 year old female evaluated secondary to the integument compromise. Patient would benefit from continued PT for wound care to address the above listed problems and to maximize healing. Healing Potential: good Treatment Plan: Pain management, Wound cleaning, and Selective/non-excisional debridement of necrotic tissue The following goals are to maximize wound healing and foster normal integumentary status to allow patient to participate in normal daily activities. GOALS: upon discharge: 1. Promote granulation tissue to 100% of wound bed. 2. Control bioburden and infection. 3. Control drainage of wound via use of dressings to prevent maceration and infection. PATIENT EDUCATION: Patient and Family member provided with preferred teaching of verbal information and demonstration on role of PT in wound care, plan of care, . Shows readiness to learn. Verbal instruction and Demonstration teaching provided. Individual is able to read and Indicates understanding of teaching provided. Total Time Tx Codes in Minutes: 0 min Total Treatment Time in Minutes: 30 min Tahir Ohara PT, DPT License # [id number] [facility] 2024-03-27 10:00:00 Associated Order(s): CONSULT VASCULAR ACCESS Vascular Access Services VAS was consulted for mildine insertion. Consult has been acknowledged, and the patient's medical chart has been reviewed. Please see procedural note. [facility] 2024-03-25 14:15:00 Associated Order(s): CONSULT ADULT PHYSICAL THERAPY Patient agreeable to working with physical therapy. Patient met semi reclined in bed. Recommend nursing staff utilize radha lift to safely assist patient with mobility out of the bed or chair. PHYSICAL THERAPY EVALUATION Consult received, chart reviewed and evaluation complete this date. Patient is referred to PT for evaluation and treatment. Patient is a 63 year old female who presents to hospital for New onset a-fib [I48.91] Heart failure [I50.9] admitted due to the following NSTEMI Multifocal atrial tachycardia vs Atrial fibrillation New onset HFrEF (EF 15-20%) tachycardia induced cardiomyopathy Elevated troponin Hypokalemia, treating Hypomagnesemia, treating Hypervolemic hyponatremia Occluded LEFT distal posterior tibial artery. PTX s/p chest tube x3 (08/2023, 10/2023, 12/2023), COPD, diastolic CHF, parietal lobe hematoma 2/2 fall (02/2023), Jlksijg-Aojll-Crmeg, spina bifida, muscular dystrophy, RA, tobacco use, hx of intracranial bleed who is transferred from [facility] with tachycardia concerning for atrial fibrillation. Discharge Recommendations: Therapy Needs and Potential: Patient would benefit from continued physical therapy services to address: decline in bed mobility decline in transfers decreased strength decreased coordination decreased motor planning integument compromise Patient exhibits limited ability to follow commands. Pt close to baseline but will benefit from continued PT in a SNF/LTCF to address deficits in bed mobility and transfers to decrease burden of care and have 24/7 supervision and care secondary to cognitive deficits as well Challenges to Home Transition: increased risk of falls decreased caregiver availability decreased safety awareness Pt requires increased physical assistance for bed mobility and tranfers Equipment recommendations: hospital bed, mechanical lift, and /or defer to facility Current Functional Status and/or Treatment: AM-PAC 6 Clicks (Raw Score 0=Dependent, 24=Independent; Low function Raw Score 0= Dependent, 32=Independent): Raw Score - Basic Mobility : 8 T-Scale Score - Basic Mobility : 22.61 Bed Mobility: Rolling: Moderate Assistance Scooting in supine: Maximum Assistance Sitting balance Fair - performed long sitting in bed. Attempted to perform EOB sitting but pt not fully comprehending and following instructions Repositioned patient to head of bed: Maximum Assistance Assessed strength, activity tolerance and safety awareness. Pt perseverates on needing her water beside her, love, smiling and her sister needing to do things for her. PT attempted several times to redirect patient and have her focus task on hand but pt unable to perform task consistently and states her sister will do her ADLs and bed mobility for her because she can not see or feel with her hands Educated pt on utilizing bed controls to help with repositioning but pt reports she can not see the green button but only sees red. Pt reports she can not feel the button with her fingers and needs help . Pt able to press on nurse call button without issue. Dizziness No Pt able to perform rolling with use of bed rails with max A to completely lay on her side for PT to check her skin. Pt able to lay flat for a few seconds but later wanted to sit up due to coughing spell. Pt instructed on posterior scooting in long sitting, pushing down with B UE for off loading and repositioning in preparation for EOB sitting. PT instructed pt to move LE towards EOB and hold on to rail but pt unable to follow as instructed and continued to talk about her sister, her water and smiling. Transfers: Deferred due to safety concerns secondary to pt not able to fully comprehend task and follow instructions consistently Ambulation: As per patient she has not ambulated for a while and her sister lifts her to transfer to the chair Therapeutic exercise: patient educated in Compensatory techniques/adaptive strategies, Deep breathing, Edema management, Energy conservation, Fall prevention, General strengthening, Joint protection, Positioning, Relaxation/breathing techniques, and Safety awareness., instructed patient in the following: ankle pumps, heel slides, hip abduction/adduction, patient/caregiver instructed to perform HEP 2-3 times per day, 10-15 repetitions., and patient/caregiver verbalizes understanding of instructions. Patient informed therapist that she will not remember her exercises Functional Outcome Measures: (Values within the past 12 hours) After session, patient long sitting in bed . Call button provided. Nurse in room with VMT PLAN OF CARE: While in the hospital, PT will follow patient at least 2 times per week,once or twice a day, per patient's tolerance and needs. See below for complete details. Admit Date: 03/21/2024 Hospital Diagnosis:New onset a-fib [I48.91] Heart failure [I50.9] PT Diagnosis: Weakness, Pain, Abnormality of gait and balance, and Integument compromise Weight Bearing Precaution: NA General Precautions: PPE used:Gloves, General, Fall, Cardiac, Pulmonary, Logroll,Purewick catheter, IV x2, oxygen: Nasal canula Bracing/Cast present or required:N/A PMH: Past Medical History: Diagnosis Date Wlsdjwa-Gkplz-Wmjhk atrophy CVA (cerebral vascular accident) 2022 HTN (hypertension) Rheumatoid arthritis Spina bifida PSH: Past Surgical History: Procedure Laterality Date LEG/ANKLE SURGERY PROC UNLISTED SPINE SURGERY Prior Living Situation: pt lives with her sister in an apartment, as per conversation with evaluating OT, he spoke to the sister and informed this therapist that Sister is having difficulty in taking care of the patient due to patient decline in function DME: Bedside commode, Grab bars, Standard Walker, Wheelchair Prior level of Mobility: requires assistance with transfers, requires assistance with bed mobility, uses w/c primarily Suspected ischemic or hemorraghic stroke:No Subjective: " I love you, everyone needs to smile, I'm sorry I won't remember your name" Patient/Family Goals: none stated Patient/Family verbalizes understanding of condition: pt appear to understand that she needs a lot of help PAIN: did not appear to be in pain based on lack of grimacing, withdrawal and/or change in vital signs COMMUNICATION Primary Language: Gibraltarian Able to Verbalize needs: Yes Vision:glasses Hearing:hard of hearing ORIENTATION/COGNITION: Oriented to: person Awake: Yes Alert: Yes Dizzy: No Follows Commands: Yes 1-Step Yes Multi-Step No Inconsistent: Yes NEUROLOGICAL Light Touch: deficit: on bilateral LE, Heel to harrison: nt Tone: wnl BALANCE: Sitting: Static: Fair Dynamic: Poor+ Standing: Static: NT Dynamic: NT RANGE OF MOTION: within functional limits bilateral LE, STRENGTH: 2/5 (P), bilateral LE ENDURANCE: Fair, Nasal canula SKIN INTEGRITY: not intact, PROBLEM LIST: Decline in bed mobility, Decline in transfers, Decreased endurance, Decreased balance, Safety awareness deficits, Pain, altered sensation, Decreased Motor Planning, and Integument compromise ASSESSMENT: Patient is a 63 year old female seen secondary to the above listed diagnosis. Patient would benefit from continued PT to address the above listed deficits to maximize independence and safety with functional mobility. Rehabilitation Potential: guarded Goals: The following goals are to maximize independence and safety with functional mobility to eventually return to prior living situation and prior functional status. Upon discharge, patient and/or family will demonstrate the followin. Rolling: Minimal Assistance Scooting in supine: Independent Reclined to sitting: Minimal Assistance Scooting to edge of bed: Minimal Assistance 2. Lateral scooting transfer: Moderate Assistance Slide board transfer: Moderate Assistance Treatment Plan: Therapeutic exercise, Transfer training, Bed mobility training, Equipment needs assessment, Safety education, patient/caregiver education, and Functional Motor Training PATIENT EDUCATION: Patient provided with preferred teaching of verbal information and demonstration on role of PT, plan of care, HEP. Safety awareness and fall prevention, energy conservation techniques, proper body mechanics, AD management . Barriers to learning include physical limitations and cognitive limitations. Verbal instruction and Demonstration teaching provided. Individual is able to read and needs reinforcement of teaching. Total Time Tx Codes in Minutes: 25 min Total Treatment Time in Minutes: 40 min Tahir Ohara PT, DPT License # [id number] [facility] 2024-03-25 11:11:00 Associated Order(s): CONSULT ADULT OCCUPATIONAL THERAPY OT GENERAL EVALUATION Consult received via [facility], EMR reviewed and evaluation completed 03/25/24. Patient referred to occupational therapy for evaluation and treatment secondary to New Onset A-fib. Patient agreeable to participate in occupational therapy. Discharge Recommendations: Therapy Needs and Potential:- Patient would benefit from continued skilled occupational therapy services to address: Decline in basic activities of daily living, Decreased strength, and Decreased endurance - Patient demonstrates ability to tolerate at least 30-60 minutes of active participation in occupational therapy. - Patient able to follow commands: 1-step Yes, Multi-step No, Inconsistencies Yes Challenges to Home Transition:- Requires physical assistance for BADLS - Requires physical assistance for IADLS - Requires supervision or verbal cues for BADLS - Limited caregiver availability - Decreased safety awareness/judgement - Increased risk of falls - Environmental barriers Equipment Recommendations:None Patient may benefit from Post Acute Occupational Therapy in a [facility] facility setting. PLAN OF CARE: At least 3x/week Precautions: Weight bearing status: NA General: PPE Utilized: Gloves, Fall, and O2 per face mask, peripheral IV, Purewick Bracing: N/A Current Occupational Performance and/or Treatment: AM-PAC 6 Clicks (Raw Score 0=Dependent, 24=Independent; Low function Raw Score 0= Dependent, 32=Independent): Raw Score - Daily Activity (Low Function): 19 T-Scale Score - Daily Activity (Low Function): 31.34 Feeding: Supervision after set up and positioning Grooming: Supervision after set up and positioning UB Dressing: Total Assistance to don hospital gown LB Dressing: Total Assistance to don non skid socks Toilet Transfer: Not attempted due to poor balance, poor trunk control, difficulty following commands Functional Mobility: HOB elevated, sup -> sit EOB MAX assistance, sit <-> stand MAX A . Able to tolerate standing at RW with MAX A for ~ 6 minutes. Requires MAX A to transition from sitting EOB to semi reclined in bed Patient/caregiver educated on:Adaptive equipment , ADL training, Deep breathing, Positioning, Role of OT, and Safety awareness Patient left semireclining in bed with call huston in reach. Telesitter in place and Bed alarm engaged, nursing staff notified. Please, see full evaluation below for more detail. OT EVALUATION: 63 year old female Admit date: 03/21/2024 Date of onset: 03/21/2024 Admit Diagnosis: New onset a-fib [I48.91] Heart failure [I50.9] OT Diagnosis: Impaired BADL independence, Decreased endurance, and Impaired self-care mobility PMH: Past Medical History: Diagnosis Date Ybmneqd-Udzmq-Ipuar atrophy CVA (cerebral vascular accident) 2022 HTN (hypertension) Rheumatoid arthritis Spina bifida PSH: Past Surgical History: Procedure Laterality Date LEG/ANKLE SURGERY PROC UNLISTED SPINE SURGERY PAIN: Pain Location: diffuse/generalized Pain rating before treatment: does not rate, After treatment: does not rate Pain Management: Decreased movement aides in some pain reduction and Repositioning Provided OCCUPATIONAL ROLES/HOME ENVIRONMENT: Home environment: Lives alone, 23/05 supervision/assistance is not available, and Downstairs apartment. Bathroom access: Yes Bathroom setup: Combo Occupation(s): Disabled Function prior to admission: Moderate Assistance Assistance with ADL and Provider assistance Sibling Luzmaria Moore has been providing care for patient. Recently moved her in to her home at least temporarily. Mrs Moore reports that patient has needed assistance for dressing, toileting and mobility. With patient preferring to sleep in wheelchair rather than a recliner or bed Suspected ischemic or hemorraghic stroke patient: No Equipment prior to admission: Bedside commode, Grab bars, Standard Walker, Wheelchair PERFORMANCE SKILLS/FACTORS: UE Muscle Tone: bilateral WNL UE ROM: bilateral AROM WFL UE Strength: MAISHA UE 3+/5 Hand dominance: right Dexterity/Coordination: bilateral Fine motor skills Impaired , bilateral Gross motor skills Impaired , and bilateral Finger to nose Impaired Endurance - Sitting: Fair - Standing: Poor Sitting Balance - Static: Fair - Dynamic: Poor Standing: Balance - Static Poor Dynamic: NT Dizziness: No Skin Integrity: defer full skin assessment to nursing Sensation: bilateral Intact to light touch Oral Motor: Poor dentition Communication: Able to verbalize needs inconsistently secondary to cognitive deficits. Other: N/A Vision: WFL Yes Other: glasses or contacts Hearing: good; no issues reported COGNITION: Orientation: person, place, and situation Follows Commands: 1-step Yes Multi-step No Inconsistencies Yes Safety Awareness/Judgment: Poor and Impulsive PROBLEM LIST: Decreased independence with ADL, Impaired postural control, Decreased strength/endurance for functional activity, Impaired safety awareness, and Impaired Cognition REHAB POTENTIAL/PROGNOSIS: Guarded PATIENT/FAMILY GOALS: Sibling Soledad Moore, who has been a caregiver for patient, feels that it is time for senior care placement. TREATMENT/INTERVENTION PLAN: Patient/Caregiver Education, Equipment recommendations, Daily living activities, Therapeutic exercises, and Neuromuscular Re-Education GOAL(S): By discharge, patient will increase independence in daily living skills as follows: 1 Patient will perform 3 in 1 BSC transfer with minimal assistance. 2 Patient will perform UB dressing with minimal assistance. 4 Patient will perform LB dressing with moderate assistance. 5 Patient will increase endurance for functional activity as evidenced by ability to sustain 30 minutes of active participation. 6 Patient/caregiver will verbalize/demonstrate understanding/proficiency in the following home programs: Adaptive equipment , Deep breathing, Fall prevention, General strengthening, and Positioning PATIENT-FAMILY TEACHING Patient provided with preferred teaching of verbal information on ADL training, Deep breathing, Fall prevention, General strengthening, Role of OT, and Safety awareness. Barriers to learning include cognitive limitations and desire and motivation. Verbal instruction teaching provided. Individual needs reinforcement of teaching. Miranda Olson OTR *This may not be patient's primary therapist. Please contact the Rehab Department at [phone] with questions. Total Timed Treatment Codes: 25 Min Total Treatment Time: 68 Min Patient Complexity Level High - An occupational therapy evaluation of high complexity was completed using the above tests and measures. The following information was obtained: An occupational profile and medical and therapy history, including review of medical and/or therapy records and extensive additional review of physical, cognitive, or psychosocial history related to current functional performance, Various standardized and non-standardized assessments were used to identify at least 5 or more performance deficits related to physical, cognitive, or psychosocial skills that result in activity limitations and/or participation restrictions, and Clinical decision-making is of high analytic complexity, which includes an analysis of the patient profile, analysis of data from comprehensive assessment(s), and consideration of multiple treatment options. Patient present with comorbidities that affect occupational performance. Significant modification of tasks or assistance (e.g., physical or verbal) with assessment(s) is necessary to enable patient to complete evaluation component. William Olson OT [facility] 2024-03-24 14:02:19 Associated Order(s): CONSULT PULMONARY MEDICINE Images from the original note were not included. PULMONARY MEDICINE CONSULTATION NOTE Consultation requested by: Francisco Willis MD Date of Service: 03/24/2024 14:15 HD #: 3 Reason for Consultation: Evaluation of Pneumothorax History of Present Illness Rick Mathur is a 63 year old female with PMH recurrent spontaneous pneumothorax, tobacco use hx and evidence of chronic lung disease presents initially for atrial fibrillation to [facility], transferred to [place] following electrolyte abnormalities. Undergoing workup and treatment persistent Afib w/ RVR. Pulmonary consulted for evaluation of CXR demonstrating right pneumothorax. Social History Tobacco Use Smoking Status Former Current packs/day: 0.50 Average packs/day: 0.5 packs/day for 50.0 years (25.0 ttl pk-yrs) Types: Cigarettes Passive exposure: Current Smokeless Tobacco Never PAST MEDICAL HISTORY Past Medical History: Diagnosis Date Vapfflj-Szbiy-Kgrcj atrophy CVA (cerebral vascular accident) 2022 HTN (hypertension) Rheumatoid arthritis Spina bifida Past Surgical History: Procedure Laterality Date LEG/ANKLE SURGERY PROC UNLISTED SPINE SURGERY Family History Problem Relation Age of Onset Arthritis Mother Pulmonary Mother Heart Father Coronary Heart Disease Father Social History Socioeconomic History Marital status: Tobacco Use Smoking status: Former Current packs/day: 0.50 Average packs/day: 0.5 packs/day for 50.0 years (25.0 ttl pk-yrs) Types: Cigarettes Passive exposure: Current Smokeless tobacco: Never Vaping Use Vaping status: Never Used Substance and Sexual Activity Alcohol use: Yes Comment: socially Drug use: Not Currently Social History Narrative Lives home alone 11/28/23: Patient was seen by [facility] to Home Consult Team and the below barriers to health were identified: None Identified Narrative: Home and Living Situation Patient states she lives at home alone on the first floor of an apartment complex in [place], [place] for approximately 6-7 years. She states her sister comes over every day and helps her with medications, cooking, and cleaning. States she has a walker and wheelchair at home and has no problem with moving around her home. States her sisters and neighbors regularly bring her food and she has never missed a meal. Relationship Status Patient states she is single. Has 2 sons, ages 45 and 42, who live in [facility]. States they are healthy and doing well. States she does not see her children and grandchildren as often as she would like, though she did not give a clear reason as to why this is. Transportation States she does not have a car and relies on her sisters to take her to appointments. She states her sisters have no problem transporting her and she has never missed an appointment due to lack of transportation. 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 She states she enjoys working but had to retire in 1992- due to pain in her feet. She states she is not currently looking for work. Social Network & Interests She states she has a good support system with her sister and neighbors. States her best friend lives next door and she regularly visits with her. States she can rely on her sisters and neighbors for any assistance. States she enjoys staying at home and watching TV. [facility] she does not like to leave her home unless she has a doctor appointment. Education & Health Literacy States she attended school in [place] and [place] and completed her education up to elementary school (unable to give an exact grade). Patient was unable to list her medications, but knew that she took medications for hypertension, headaches, and pain. She knew that she's scheduled for medication in the morning and afternoon. States her sister comes in the morning and leaves around 3 pm and helps with her medications. States she is left alone after 3 pm and is unable to get a chair lift operator. Outpatient Primary Care States she is seen by Dr. Everett (unable to pronounce name) In [place]. [facility] she is able to make her own follow up appointment and will follow up on her own as needed. Social Determinants of Health Financial Resource Strain: Low Risk (03/22/2024) Overall Financial Resource Strain (CARDIA) Difficulty of Paying Living Expenses: Not hard at all Food Insecurity: No Food Insecurity (03/22/2024) Hunger Vital Sign Worried About Running Out of Food in the Last Year: Never true Ran Out of Food in the Last Year: Never true Transportation Needs: No Transportation Needs (03/22/2024) PRAPARE - Transportation Lack of Transportation (Medical): No Lack of Transportation (Non-Medical): No Physical Activity: Inactive (03/22/2024) Exercise Vital Sign Days of Exercise per Week: 0 days Minutes of Exercise per Session: 0 min Social Connections: Unknown (03/22/2024) Social Connection and Isolation Panel [NHANES] Frequency of Communication with Friends and Family: More than three times a week Marital Status: Housing Stability: Low Risk (03/22/2024) Housing Stability Vital Sign Unable to Pay for Housing in the Last Year: No Number of Places Lived in the Last Year: 1 Unstable Housing in the Last Year: No Allergies: Darvocet a500 [propoxyphene n-acetaminophen] and Darvon [propoxyphene] Current Hospital Medications: Current Facility-Administered Medications Medication Dose Route Frequency Last Rate Last Admin furosemide (LASIX) tablet 80 mg 80 mg Oral QAM+PM [START ON 03/25/2024] KCL (KLOR-CON M20) tablet 20 mEq 20 mEq Oral DAILY KCL 20 mEq/15 mL solution 40 mEq 40 mEq Oral ONCE NOW metoprolol succinate XL (TOPROL XL) tablet 100 mg 100 mg Oral BID spironolactone (ALDACTONE) tablet 25 mg 25 mg Oral DAILY 25 mg at 03/24/24 1214 digoxin (LANOXIN) tablet 250 mcg 250 mcg Oral DAILY 250 mcg at 03/24/24 0757 heparin (porcine) injection 5,000 Units 5,000 Units Subcutaneous Q12H 5,000 Units at 03/24/24 0803 acetaminophen (TYLENOL) tablet 650 mg 650 mg Oral Q6HPRN aspirin EC tablet 81 mg 81 mg Oral DAILY 81 mg at 03/24/24 0900 atorvastatin (LIPITOR) tablet 40 mg 40 mg Oral QHS 40 mg at 03/23/24 203 calcium carbonate (OSCAL-500) tablet 500 mg 500 mg Oral BID MEALS 500 mg at 03/24/24 08 cholecalciferol (vitamin D3) tablet 2,000 Units 2,000 Units Oral DAILY 2,000 Units at 03/24/24 0802 HYDROcodone-acetaminophen (NORCO 5) 5-325 mg tablet 1 tablet 1 tablet Oral Q6HPRN 1 tablet at 03/23/24 0621 HYDROcodone-acetaminophen (NORCO) 10-325 mg tablet 1 tablet 1 tablet Oral Q6HPRN 1 tablet at 03/24/24 0759 metoprolol (LOPRESSOR) injection 5 mg 5 mg Intravenous Q6HPRN NaCl 0.9% (NS) injection 10 mL 10 mL Slow IV Push PRN gabapentin (NEURONTIN) capsule 400 mg 400 mg Oral TID 400 mg at 03/24/24 1412 pantoprazole (PROTONIX) EC tablet 40 mg 40 mg Oral DAILY 40 mg at 03/24/24 0802 Home Medications: Current Facility-Administered Medications Medication Dose Route Frequency Last Rate Last Admin furosemide (LASIX) tablet 80 mg 80 mg Oral QAM+PM [START ON 03/25/2024] KCL (KLOR-CON M20) tablet 20 mEq 20 mEq Oral DAILY KCL 20 mEq/15 mL solution 40 mEq 40 mEq Oral ONCE NOW metoprolol succinate XL (TOPROL XL) tablet 100 mg 100 mg Oral BID spironolactone (ALDACTONE) tablet 25 mg 25 mg Oral DAILY 25 mg at 03/24/24 1214 digoxin (LANOXIN) tablet 250 mcg 250 mcg Oral DAILY 250 mcg at 03/24/24 0757 heparin (porcine) injection 5,000 Units 5,000 Units Subcutaneous Q12H 5,000 Units at 03/24/24 0803 acetaminophen (TYLENOL) tablet 650 mg 650 mg Oral Q6HPRN aspirin EC tablet 81 mg 81 mg Oral DAILY 81 mg at 03/24/24 0900 atorvastatin (LIPITOR) tablet 40 mg 40 mg Oral QHS 40 mg at 03/23/242032 calcium carbonate (OSCAL-500) tablet 500 mg 500 mg Oral BID MEALS 500 mg at 03/24/24 08 cholecalciferol (vitamin D3) tablet 2,000 Units 2,000 Units Oral DAILY 2,000 Units at 03/24/24 08 HYDROcodone-acetaminophen (NORCO 5) 5-325 mg tablet 1 tablet 1 tablet Oral Q6HPRN 1 tablet at 03/23/24 0621 HYDROcodone-acetaminophen (NORCO) 10-325 mg tablet 1 tablet 1 tablet Oral Q6HPRN 1 tablet at 03/24/24 0759 metoprolol (LOPRESSOR) injection 5 mg 5 mg Intravenous Q6HPRN NaCl 0.9% (NS) injection 10 mL 10 mL Slow IV Push PRN gabapentin (NEURONTIN) capsule 400 mg 400 mg Oral TID 400 mg at 03/24/24 1412 pantoprazole (PROTONIX) EC tablet 40 mg 40 mg Oral DAILY 40 mg at 03/24/24 0802 Review of Systems: General: - fever, - chills, - weight loss/increase, - dizziness, - fatigue, - change in appetite HEENT: - headache, - change in hearing, - change in vision, - sinus congestion, rhinorrhea, - post nasal drainage, - watery eyes, - sore throat Hematologic: - bleeding disorder Respiratory: -cough, - shortness of breath, - dyspnea on exertion, - wheezing - orthopnea, - PND Cardiovascular: - chest pain, - palpitations, - syncope, -lower extremity swelling, Gastrointestinal: - abdominal pain, - nausea, - vomiting, - diarrhea, - constipation, - melena, - hematochezia, - hematemesis Genitourinary: - dysuria, - hematuria, - increased frequency, - difficulty urinating, - difficulty initiating Neurologic: -weakness, -dizziness, -headache Endocrine: - heat/cold intolerance, -polyuria Musculoskeletal: - joint pain, - back pain, - muscle spasms Integument: - rash, - lesion Psych: -depression, -anxiety Physical Exam and Objective Data BP (!) 121/99 | Pulse 91 | Temp 35.8 ?C (96.4 ?F) (Axillary) | Resp 16 | Ht 4' 9" (1.448 m) | Wt 79 lb 5.9 oz (36 kg) | SpO2 (P) 98% | BMI 17.17 kg/m? Constitutional: well appearing female, no acute distress HENT: normocephalic and atraumatic, Cardiovascular: regular rate and rhythm, no murmur, no JVD Respiratory: clear to auscultation bilaterally, without wheezes, rales or rhonchi Gastrointestinal: soft, non-tender, non-distended abdomen Musculoskeletal: No clubbing or cyanosis Neurologic: normal gait and station, normal range, cranial nerves II - XII grossly intact Integument: skin color, texture and turgor are normal; no bruising, rashes or lesions noted Intake/Output Summary (Last 24 hours) at 03/24/2024 1415 Last data filed at 03/24/2024 1400 Gross per 24 hour Intake 219.97 ml Output 4450 ml Net -4230.03 ml LABORATORY CBC BMP LFTs WBC (10*3/?L) Date Value 03/24/2024 8.73 NA (mmol/L) Date Value 03/24/2024 131 (L) ALK PHOS (U/L) Date Value 03/21/2024 100 HGB (g/dL) Date Value 03/24/2024 12.6 K (mmol/L) Date Value 03/24/2024 4.7 ALTv (U/L) Date Value 03/21/2024 32 HCT (%) Date Value 03/24/2024 38.4 CALCIUM (mg/dL) Date Value 03/24/2024 7.8 (L) AST(SGOT) (U/L) Date Value 03/21/2024 81 (H) PLT (10*3/?L) Date Value 03/24/2024 182 CL (mmol/L) Date Value 03/24/2024 89 (L) RBC (10*6/?L) Date Value 03/24/2024 4.07 BUN (mg/dL) Date Value 03/24/2024 10 Cardio CREATININE (mg/dL) Date Value 03/24/2024 0.52 NT-proBNP (pg/mL) Date Value 03/24/2024 20,200 (H) Thyroid TSH (mIU/L) Date Value 03/22/2024 2.48 No components found for: "GLUC" MICROBIOLOGY: Lab Results Component Value Date CBLD Escherichia coli 04/01/2021 CUR >100,000 CFU/mL Escherichia coli 04/01/2021 RESULTS REVIEWED: CT Thorax 01/03/2024 - evidence of emphysematous lung disease, prominent bullae predominately in the right upper lobe. XR CHEST 1 VW 03/23/2024 -right apical pneumothorax 12/31/2023 -apical pneumothorax right side Assessment & Plan Rick Mathur is a 63 year old female with // Chronic Right Pneumothorax // Chronic Hypoxic Respiratory Failure After review of history which demonstrates multiple previous pneumothoracies with evidence of emphysematous changes which predominate in the right upper lobe. Right apical pneumothorax is stable when compared to previous images obtained in December 2023. - Recommend continue conservative management with observation. Plan was reviewed with Dr Carballo and discussed with the patient. All concerns were addressed and all questions answered. Bobyb Pham DO, PGY-4 Pulmonary & Critical Care Fellow Associated attestation - Nehemiah Carballo MD - 03/24/2024 6:46 PM CDT After discussion with Dr. Pham I agree with fellow's note as written. [facility] 2024-03-23 16:05:13 Associated Order(s): CONSULT NEUROLOGY STROKE SERVICE CONSULT DATE OF SERVICE: 03/23/2024 16:05 REASON FOR CONSULT: patient w/ hx of CVA hemorrhagic stroke 2022 requires doac might require DAPT if stent placed HISTORY OF PRESENT ILLNESS Rick Mathur is a 63 year old female right handed with the following stroke factors: R parietotemporal hemorrhage in 02/2023 (likely traumatic vs hypertensive), HLD, chronic tobacco use since age 7, new onset afib [id number] in addition to secondary spontaneous PTX s/p chest tube x3 (08/2023, 10/2023, 12/2023), COPD, diastolic CHF, Vbnqhyz-Ncxqn-Binfv, spina bifida, muscular dystrophy, RA who presented with CC of hypokalemia and new onset Afib RVR at [facility] and was eventually transferred here for ischemic evaluation after echo showed new reduced EF of 15-20% and occluded L post tibial artery. Stroke was consulted to comment on safety of starting AC for Afib and use of DAPT after PCI if required. Per family patient did not have any deficits from the hemorrhage. Ambulates using a walker at baseline d/t foot deformity and has chronic vision impairment. Patient c/o sensory deficits on L side of body but denies any current focal weakness, headaches, issues with speech or swallow. Antiplatelets: No Anticoagulations: No Tobacco abuse: Yes since age 7, quit 2-3 weeks ago Alcohol abuse: No Drug abuse: No Previous stroke: Yes R posterior MCA territory ICH in 02/2023 Body mass index is 24.57 kg/m?. STROKE DOCUMENTATION Stroke Activation - Date: (not recorded) Stroke Activation - Time: (not recorded) Physician arrival at bedside - Date: (not recorded) Physician arrival at bedside - Time: (not recorded) CT-Head without contrast read by Neurology: (not recorded) Last seen normal: Last known well - Date: (not recorded) Last known well - Time: (not recorded) Wake up stroke: No NIH STROKE SCALE NIHSS TOTAL: (not recorded) NIHSS Interval: (not recorded) LOC: (not recorded) LOC QUESTIONS: (not recorded) LOC COMMANDS: (not recorded) BEST GAZE: (not recorded) VISUAL: (not recorded) FACIAL PALSY: (not recorded) MOTOR ARM-LEFT: (not recorded) MOTOR ARM-RIGHT: (not recorded) MOTOR LEG-LEFT: (not recorded) MOTOR LEG-RIGHT: (not recorded) LIMB ATAXIA: (not recorded) SENSORY: (not recorded) BEST LANGUAGE: (not recorded) DYSARTHRIA: (not recorded) EXTINCTION AND INATTENTION (FORMERLY NEGLECT): (not recorded) Dysphagia Screen: IV Alteplase: If IV Thrombolytic therapy was indicated and given as a standard of care was the patient/family informed of benefits of treatment and risk such as hemorrhage and/or angioedema?: (not recorded) Was there a delay in door to IV thrombolytic over 30 minutes?: (not recorded) Reason (s): (not recorded) ICH/SAH Endovascular Intervention: PRE- ADMISSION MODIFIED [place] SCORE 2 - Slight disability; unable to carry out all previous activities; but able to look after own affairs without assistance PAST MEDICAL HISTORY Past Medical History: Diagnosis Date Vbgidbu-Jhatr-Cxhdp atrophy CVA (cerebral vascular accident) 2022 HTN (hypertension) Rheumatoid arthritis Spina bifida PAST SURGICAL HISTORY Past Surgical History: Procedure Laterality Date LEG/ANKLE SURGERY PROC UNLISTED SPINE SURGERY FAMILY HISTORY Family History Problem Relation Age of Onset Arthritis Mother Pulmonary Mother Heart Father Coronary Heart Disease Father SOCIAL HISTORY Social History Socioeconomic History Marital status: Tobacco Use Smoking status: Former Current packs/day: 0.50 Average packs/day: 0.5 packs/day for 50.0 years (25.0 ttl pk-yrs) Types: Cigarettes Passive exposure: Current Smokeless tobacco: Never Vaping Use Vaping status: Never Used Substance and Sexual Activity Alcohol use: Yes Comment: socially Drug use: Not Currently Social History Narrative Lives home alone 11/28/23: Patient was seen by [facility] to Home Consult Team and the below barriers to health were identified: None Identified Narrative: Home and Living Situation Patient states she lives at home alone on the first floor of an apartment complex in [place], [place] for approximately 6-7 years. She states her sister comes over every day and helps her with medications, cooking, and cleaning. States she has a walker and wheelchair at home and has no problem with moving around her home. States her sisters and neighbors regularly bring her food and she has never missed a meal. Relationship Status Patient states she is single. Has 2 sons, ages 45 and 42, who live in [facility]. States they are healthy and doing well. States she does not see her children and grandchildren as often as she would like, though she did not give a clear reason as to why this is. Transportation States she does not have a car and relies on her sisters to take her to appointments. She states her sisters have no problem transporting her and she has never missed an appointment due to lack of transportation. 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 She states she enjoys working but had to retire in due to pain in her feet. She states she is not currently looking for work. Social Network & Interests She states she has a good support system with her sister and neighbors. States her best friend lives next door and she regularly visits with her. States she can rely on her sisters and neighbors for any assistance. States she enjoys staying at home and watching TV. States she does not like to leave her home unless she has a doctor appointment. Education & Health Literacy States she attended school in [place] and [place] and completed her education up to elementary school (unable to give an exact grade). Patient was unable to list her medications, but knew that she took medications for hypertension, headaches, and pain. She knew that she's scheduled for medication in the morning and afternoon. States her sister comes in the morning and leaves around 3 pm and helps with her medications. States she is left alone after 3 pm and is unable to get a chair lift operator. Outpatient Primary Care States she is seen by Dr. Everett (unable to pronounce name) In [place] she is able to make her own follow up appointment and will follow up on her own as needed. Social Determinants of Health Financial Resource Strain: Low Risk (03/22/2024) Overall Financial Resource Strain (CARDIA) Difficulty of Paying Living Expenses: Not hard at all Food Insecurity: No Food Insecurity (03/22/2024) Hunger Vital Sign Worried About Running Out of Food in the Last Year: Never true Ran Out of Food in the Last Year: Never true Transportation Needs: No Transportation Needs (03/22/2024) PRAPARE - Transportation Lack of Transportation (Medical): No Lack of Transportation (Non-Medical): No Physical Activity: Inactive (03/22/2024) Exercise Vital Sign Days of Exercise per Week: 0 days Minutes of Exercise per Session: 0 min Social Connections: Unknown (03/22/2024) Social Connection and Isolation Panel [NHANES] Frequency of Communication with Friends and Family: More than three times a week Marital Status: Housing Stability: Low Risk (03/22/2024) Housing Stability Vital Sign Unable to Pay for Housing in the Last Year: No Number of Places Lived in the Last Year: 1 Unstable Housing in the Last Year: No Reviewed patient's family, surgical and social hx. HOME MEDICATIONS Medications Prior to Admission Medication Sig Dispense Refill Last Dose ergocalciferol, vitamin d2, (VITAMIN D2) 1,250 mcg (50,000 unit) capsule Take 1 capsule by mouth weekly. 03/21/2024 omeprazole 20 mg capsule Take 1 capsule by mouth. 03/21/2024 furosemide 20 mg tablet Take 1 tablet by mouth in the morning. 03/21/2024 gabapentin 300 mg capsule Take 400 mg by mouth in the morning and 400 mg at noon and 400 mg in the evening. 03/21/2024 rghmcztkof-zwnnxpl-pyacfhcc (FIORINAL) 50-325-40 mg per capsule Take 1 capsule by mouth every 4 (four) hours as needed for Pain. 03/21/2024 HYDROcodone-acetaminophen 10-325 mg tablet Take 1 tablet by mouth every 8 (eight) hours as needed. 03/21/2024 metoprolol succinate 25 mg CSpX Take 25 mg by mouth 3 (three) times daily. 03/21/2024 cyclobenzaprine 5 mg tablet Take 1 tablet by mouth 3 (three) times daily as needed for Muscle Spasms. 90 tablet 2 HOSPITAL MEDICATIONS Current Facility-Administered Medications Medication Dose Route Frequency Last Rate Last Admin furosemide (LASIX) injection 40 mg 40 mg Slow IV Push TID 40 mg at 03/23/24 1508 heparin (porcine) injection 5,000 Units 5,000 Units Subcutaneous Q12H 5,000 Units at 03/23/24 0839 acetaminophen (TYLENOL) tablet 650 mg 650 mg Oral Q6HPRN aspirin EC tablet 81 mg 81 mg Oral DAILY 81 mg at 03/23/24 0838 atorvastatin (LIPITOR) tablet 40 mg 40 mg Oral QHS 40 mg at 03/22/242015 calcium carbonate (OSCAL-500) tablet 500 mg 500 mg Oral BID MEALS 500 mg at 03/23/24 0839 cholecalciferol (vitamin D3) tablet 2,000 Units 2,000 Units Oral DAILY 2,000 Units at 03/23/24 0838 esmolol in saline (BREVIBLOC) 2,500 mg/250 mL (10 mg/mL) infusion 25-300 mcg/kg/min IV Infusion TITRATE Stopped at 03/23/24 0917 HYDROcodone-acetaminophen (NORCO 5) 5-325 mg tablet 1 tablet 1 tablet Oral Q6HPRN 1 tablet at 03/23/24 0621 HYDROcodone-acetaminophen (NORCO) 10-325 mg tablet 1 tablet 1 tablet Oral Q6HPRN 1 tablet at 03/22/24 0922 lidocaine 1% (PF) (XYLOCAINE) injection 5 mL 5 mL Subcutaneous PRN metoprolol (LOPRESSOR) injection 5 mg 5 mg Intravenous Q6HPRN metoprolol tartrate (LOPRESSOR) tablet 50 mg 50 mg Oral Q6H 50 mg at 03/23/24 1505 NaCl 0.9% (NS) injection 10 mL 10 mL Slow IV Push PRN cyclobenzaprine (FLEXERIL) tablet 5 mg 5 mg Oral TIDPRN 5 mg at 03/22/24 0018 gabapentin (NEURONTIN) capsule 400 mg 400 mg Oral TID 400 mg at 03/23/24 1513 pantoprazole (PROTONIX) EC tablet 40 mg 40 mg Oral DAILY 40 mg at 03/23/24 0838 ALLERGY Allergies Allergen Reactions Darvocet A500 [Propoxyphene N-Acetaminophen] Nausea and/or Vomiting Darvon [Propoxyphene] Nausea and/or Vomiting REVIEW OF SYSTEMS General: (-) fever, (-) chills, (-) weight change, (-) dizziness, (-) fatigue, (-) change in appetite Skin: (-) rash, (-) lesion HEENT: (-) headache, (-) change in hearing, (-) change in vision, (-) nasal discharge, (-) sore throat Neck: (-) pain, (-) difficulty swallowing, (-) mass Heme: (-) bleeding disorder Resp: (-) cough, (-) shortness of breath, (-) dyspnea on exertion Cardio: (-) chest pain, (-) palpitations, (-) syncope GI: (-) abdominal pain, (-) nausea, (-) vomiting, (-) diarrhea, (-) constipation, (-) melena, (-) hematochezia, (-) hematemesis : (-) dysuria, (-) hematuria, (-) increased frequency, (-) difficulty urinating, (-) difficulty initiating Endo: (-) heat intolerance, (-) diabetes, (-) cold intolerance, (-) polyuria, (-) polydipsia, (-) renal insufficiency, (-) thyroid disease Neuro: (-) numbness, (-) tingling, (-) weakness Back: (-) pain, (-) spasms DANNY: (-) muscle pain, (-) joint pain, (-) claudication Psych: (-) anxiety, (-) depression, (-) psychiatric disorder PHYSICAL EXAM Vitals: 03/23/24 1403 03/23/24 1407 03/23/24 1430 03/23/24 1600 BP: 115/74 104/76 (!) 119/95 (!) 155/110 Pulse: 158 Resp: 15 Temp: 36.2 ?C (97.1 ?F) TempSrc: Axillary SpO2: 95% 94% 97% (!) 78% Weight: Height: General: Alert and oriented x 3 (person, place and situation); no apparent distress. Mental Status: Consciousness, attention, concentration: normal, Stays focused and on task while being questioned. Speech/ Language: intact to comprehension, fluency, repetition and naming. Fund of knowledge: is congruent with level of education. Remote and recent memory: normal, can recall recent and distant memories Cranial Nerves: I. Not tested. II. PERRL. FOV full to confrontation. III. IV., . Extraocular movements intact without nystagmus, L eyelid droop noted V. Impaired on L side VII. No facial droop noted. VIII. Hearing intact. IX., X. Palatal elevation and gag response present symmetrically. XI. Normal Strength of sternocleidomastoid and trapezius muscles bilaterally. XII. Tongue in midline. Motor: Tone: normal Bulk: normal Strength 4/5 in b/l UE and atleast 3/5 in b/l LE, pain limited DTR's: Right Left Biceps 2+ 2+ Triceps 2+ 2+ Brachioradialis 2+ 2+ Patella 2+ 2+ Achilles 1+ 1+ Pathologic reflexes and signs: Mckeon: absent Babinski: absent Cerebellar: Nystagmus: neg, FTN: nl Sensory: LT: impaired on L side of body Gait: deferred HEENT: pupils equal, round, reactive to light; extraocular movements intact; oropharynx clear; moist mucous membranes Lungs: clear to auscultation bilaterally Cardio: S1, S2 normal Extremities:no cyanosis,clubbing or edema Neck:supple,no carotid bruit,no JVD Abdomen: soft; non-tender; non-distended; normoactive bowel sounds heard LABS Recent Results (from the past 24 hour(s)) Lipid Panel (95821)(Total Cholesterol, Triglycerides, HDL) Collection Time: 03/23/24 3:14 AM Result Value Ref Range CHOL 246 (H) 120 - 200 mg/dL HDL 119 >50 mg/dL HDLC RATIO 2.1 <=4.5 TRIG 142 30 - 170 mg/dL LDL CHOL 99 <=160 mg/dL VLDL 28 5 - 60 mg/dL Vitamin D, 25-OH Collection Time: 03/23/24 3:14 AM Result Value Ref Range VIT D 25OH 15 (L) 25 - 80 ng/mL Basic Metabolic Panel (NA, K, CL, CO2, GLUCOSE, BUN, CREATININE, CA) Collection Time: 03/23/24 3:14 AM Result Value Ref Range NA 130 (L) 135 - 145 mmol/L K 3.9 3.5 - 5.0 mmol/L CL 94 (L) 98 - 108 mmol/L CO2 TOTAL 31 23 - 31 mmol/L AGAP 5 2 - 16 BUN 7 7 - 23 mg/dL GLUCOSE 94 70 - 110 mg/dL CREATININE 0.50 0.50 - 1.04 mg/dL CALCIUM 7.9 (L) 8.6 - 10.6 mg/dL eGFR 104.2 mL/min/1.73m2 Magnesium Collection Time: 03/23/24 3:14 AM Result Value Ref Range MAGNESIUM 1.5 (L) 1.7 - 2.4 mg/dL N-Terminal Pro-Bnp Collection Time: 03/23/24 3:14 AM Result Value Ref Range NT-proBNP 22,200 (H) <=125 pg/mL Cbc without Diff Collection Time: 03/23/24 3:14 AM Result Value Ref Range WBC 7.87 4.30 - 11.10 10*3/?L RBC 3.85 (L) 3.93 - 5.25 10*6/?L HGB 12.1 11.6 - 15.0 g/dL HCT 36.1 35.7 - 45.2 % MCH 31.4 25.9 - 32.8 pg MCV 93.8 80.6 - 95.5 fL MCHC 33.5 31.6 - 35.1 g/dL PLT 194 166 - 358 10*3/?L MPV 10.7 9.5 - 12.9 fL RDW-CV 14.7 12.0 - 15.5 % RDW-SD 49.5 39.0 - 49.9 fL NRBC x10 3 <0.01 10*3/?L NRBC/100 WBC 0.0 0.0 - 10.0 /100 WBCs IPF % Troponin I Collection Time: 03/23/24 3:14 AM Result Value Ref Range TROPONIN I 0.136 (H) <=0.034 ng/mL POCT GLUCOSE (AUTOMATED) Collection Time: 03/23/24 9:16 AM Result Value Ref Range POCT GLU 111 (H) 70 - 110 mg/dL Lactic Acid Whole Blood Collection Time: 03/23/24 11:17 AM Result Value Ref Range LACTIC ACID 1.51 0.50 - 2.20 mmol/L POCT GLUCOSE (AUTOMATED) Collection Time: 03/23/24 12:03 PM Result Value Ref Range POCT GLU 83 70 - 110 mg/dL STROKE LABS No results found for: "HGBA1C" LDL CHOL (mg/dL) Date Value 03/23/2024 99 CHOL (mg/dL) Date Value 03/23/2024 246 (H) TSH (mIU/L) Date Value 03/22/2024 2.48 Recent Labs 03/22/24 1517 03/23/24 0314 TROPNI 0.146* 0.136* RADIOLOGY CT HEAD WO CONTRAST Result Date: 03/23/2024 Late subacute to chronic infarct in the right posterior MCA territory involving the parietotemporal lobes Background moderate global volume loss and mild ischemic small vessel change XR CHEST 1 VW Result Date: 03/23/2024 1. Cardiomegaly 2. No significant interval change HS:Y CHEST 1 VW Result Date: 03/22/2024 Expected appearance of right IJ central catheter. Unchanged small right pneumothorax and pleural effusion. End of Report [employer] Rick Mathur is a 63 year old female right handed with the following stroke factors: R parietotemporal hemorrhage in 02/2023 (likely traumatic vs hypertensive), HLD, chronic tobacco use since age 7, new onset afib [id number] in addition to secondary spontaneous PTX s/p chest tube x3 (08/2023, 10/2023, 12/2023), COPD, diastolic CHF, Oifexqv-Mihqj-Kfegj, spina bifida, muscular dystrophy, RA who presented with CC of hypokalemia and new onset Afib RVR at [facility] and was eventually transferred here for ischemic evaluation after echo showed new reduced EF of 15-20% and occluded L post tibial artery. Stroke was consulted to comment on safety of starting AC for Afib and use of DAPT after PCI if required. CT head shows chronic R posterior MCA territory infarct, CTA head and neck no high grade stenosis or occlusion. Discussed with patient and her family that given hx of ICH in the past, patient will be at risk of bleeding but given new onset Afib and reduced EF, patient would require AC and risks of starting AC out ways the benefits currently. Hx of ICH 1 year ago is not an absolute contra-indication to starting AC. Family also notified about minimizing fall risk. Encouraged to f/u with PT for fall prevention. Primary team notified after discussing with family. 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 Patient seen, examined and discussed with Dr. Newman, Neurology Faculty Stroke pager: [phone] Mika Manrique MD PGY 2 Department of Neurology Associated attestation - Hong Newman MD - 03/27/2024 11:39 AM CDT I personally examined patient on 03/23/2024 during rounds with the Stroke Team and I agree with resident's note Dr. Manrique. I actively participated in the decision-making process. Please see the resident's note for additional details. 63-year-old right-handed woman with multiple stroke risk factors as per the note who presented to [facility] with hypokalemia, new onset A-fib with RVR and was found to have EF 15 to 20% so eventually transferred to [facility] for higher care. The stroke team is consulted to comment on safety of starting anticoagulation for A-fib with the history of known intracranial hemorrhage. At baseline she ambulates with a walker due to foot deformity and has chronic visual impairment. Otherwise she denies any focal weakness numbness headache or speech abnormality on examination, she is alert and oriented x 3 in no apparent distress. Vital signs are stable. Strength 4/5 in both upper extremities and 3/5 in both lower extremities pain limiting. LDL 99 NA 130, K3.9, glucose 94, GFR 104.2, WBC 7.8, Hgb 12.1, PLT 194 and troponin 0.136 I personally reviewed multiple cranio-cervical images from 03/23/[address] head, CTA head, and CTA neck; I agree with the radiologist's reading. No acute intracranial abnormality, hypodensity of undetermined age within the right occipital lobe otherwise no LVO or large vessel occlusion. New onset diastolic CHF with EF 15 to 20% New onset atrial fibrillation History of ICH 2022 Hypercholesterolemia Tobacco use disorder Agree with current medical management and secondary stroke prevention Weighing risks and benefits, patient may benefit more with anticoagulation for her new medical conditions May repeat CT head to better profile the right occipital hypodensity changes. I spent a Total Time of 81 minutes. The time spent for patient care includes: PreCharting (eg, review of tests, notes, etc.), Performing a medically appropriate examination and/or evaluation, Counseling and educating the patient/family/caregiver, Documenting clinical information in the electronic or other health record, Independently interpreting results (not separately reported) and/or communicating results to the patient/family/caregiver, and Care coordination (not separately reported). PN-NEUROLOGY [facility] 2024-03-23 11:31:08 Associated Order(s): CONSULT CARDIAC ELECTROPHYSIOLOGY Cardiac EP Consult Note 03/23/2024 11:31 11:31 AM Reason for consult: Multifocal atrial tachycardia History of Present Illness: Rick Mathur is a 63 year old female with PMHx of COPD, emphysema, secondary spontaneous pneumothorax, chest tube x 3, pleurodesis x 2, spina bifida, muscular dystrophy, rheumatoid arthritis, charcoaled Juvencio tooth joints, history of intracranial bleed was transferred from another ER to [facility] for electrolyte abnormalities and concerns for A-fib with RVR. Upon reviewing telemetry patient has multifocal atrial tachycardia. Patient has a newly reduced EF since December 2023 from 55 to 60% to 15 to 20%. ROS: 12 points ROS were obtained and negative except mentioned in HPI Past Medical History: Diagnosis Date Qlsaavl-Ncosg-Sjknh atrophy CVA (cerebral vascular accident) 2022 HTN (hypertension) Rheumatoid arthritis Spina bifida Past Surgical History: Procedure Laterality Date LEG/ANKLE SURGERY PROC UNLISTED SPINE SURGERY Family History Problem Relation Age of Onset Arthritis Mother Pulmonary Mother Heart Father Coronary Heart Disease Father Social History Socioeconomic History Marital status: Tobacco Use Smoking status: Former Current packs/day: 0.50 Average packs/day: 0.5 packs/day for 50.0 years (25.0 ttl pk-yrs) Types: Cigarettes Passive exposure: Current Smokeless tobacco: Never Vaping Use Vaping status: Never Used Substance and Sexual Activity Alcohol use: Yes Comment: socially Drug use: Not Currently Social History Narrative Lives home alone 11/28/23: Patient was seen by [facility] to Home Consult Team and the below barriers to health were identified: None Identified Narrative: Home and Living Situation Patient states she lives at home alone on the first floor of an apartment complex in [place], [place] for approximately 6-7 years. She states her sister comes over every day and helps her with medications, cooking, and cleaning. States she has a walker and wheelchair at home and has no problem with moving around her home. States her sisters and neighbors regularly bring her food and she has never missed a meal. Relationship Status Patient states she is single. Has 2 sons, ages 45 and 42, who live in [place] [facility]. States they are healthy and doing well. States she does not see her children and grandchildren as often as she would like, though she did not give a clear reason as to why this is. Transportation States she does not have a car and relies on her sisters to take her to appointments. She states her sisters have no problem transporting her and she has never missed an appointment due to lack of transportation. 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 She states she enjoys working but had to retire in due to pain in her feet. She states she is not currently looking for work. Social Network & Interests She states she has a good support system with her sister and neighbors. States her best friend lives next door and she regularly visits with her. States she can rely on her sisters and neighbors for any assistance. States she enjoys staying at home and watching TV. States she does not like to leave her home unless she has a doctor appointment. Education & Health Literacy States she attended school in [place] and completed her education up to elementary school (unable to give an exact grade). Patient was unable to list her medications, but knew that she took medications for hypertension, headaches, and pain. She knew that she's scheduled for medication in the morning and afternoon. States her sister comes in the morning and leaves around 3 pm and helps with her medications. States she is left alone after 3 pm and is unable to get a chair lift operator. Outpatient Primary Care States she is seen by Dr. Everett (unable to pronounce name) In [place]. [facility] she is able to make her own follow up appointment and will follow up on her own as needed. Social Determinants of Health Financial Resource Strain: Low Risk (03/22/2024) Overall Financial Resource Strain (CARDIA) Difficulty of Paying Living Expenses: Not hard at all Food Insecurity: No Food Insecurity (03/22/2024) Hunger Vital Sign Worried About Running Out of Food in the Last Year: Never true Ran Out of Food in the Last Year: Never true Transportation Needs: No Transportation Needs (03/22/2024) PRAPARE - Transportation Lack of Transportation (Medical): No Lack of Transportation (Non-Medical): No Physical Activity: Inactive (03/22/2024) Exercise Vital Sign Days of Exercise per Week: 0 days Minutes of Exercise per Session: 0 min Social Connections: Unknown (03/22/2024) Social Connection and Isolation Panel [NHANES] Frequency of Communication with Friends and Family: More than three times a week Marital Status: Housing Stability: Low Risk (03/22/2024) Housing Stability Vital Sign Unable to Pay for Housing in the Last Year: No Number of Places Lived in the Last Year: 1 Unstable Housing in the Last Year: No Allergies Allergen Reactions Darvocet A500 [Propoxyphene N-Acetaminophen] Nausea and/or Vomiting Darvon [Propoxyphene] Nausea and/or Vomiting Prior to Admission medications Medication Sig Start Date End Date Taking? Authorizing Provider ergocalciferol, vitamin d2, (VITAMIN D2) 1,250 mcg (50,000 unit) capsule Take 1 capsule by mouth weekly. Yes Doctor Unassigned, [place] omeprazole 20 mg capsule Take 1 capsule by mouth. 07/08/23 Yes Doctor Unassigned, [place] furosemide 20 mg tablet Take 1 tablet by mouth in the morning. Yes Doctor Unassigned, [place] gabapentin 300 mg capsule Take 400 mg by mouth in the morning and 400 mg at noon and 400 mg in the evening. Yes Doctor Unassigned, [place] vvcjntzeak-mhmljgn-gekngftc (FIORINAL) 50-325-40 mg per capsule Take 1 capsule by mouth every 4 (four) hours as needed for Pain. Yes Doctor Unassigned, [place] HYDROcodone-acetaminophen 10-325 mg tablet Take 1 tablet by mouth every 8 (eight) hours as needed. Yes Doctor Unassigned, [place] metoprolol succinate 25 mg CSpX Take 25 mg by mouth 3 (three) times daily. Yes Doctor Unassigned, [place] cyclobenzaprine 5 mg tablet Take 1 tablet by mouth 3 (three) times daily as needed for Muscle Spasms. 01/06/24 Luz Elena Barnhart MD Current Facility-Administered Medications: furosemide (LASIX) injection 40 mg, 40 mg, Slow IV Push, TID, Kacie Stewart MD, 40 mg at 03/23/24 0839 heparin (porcine) injection 5,000 Units, 5,000 Units, Subcutaneous, Q12H, Carol Simpson MD, 5,000 Units at 03/23/24 0839 acetaminophen (TYLENOL) tablet 650 mg, 650 mg, Oral, Q6HPRN, Damian Hartley MD aspirin EC tablet 81 mg, 81 mg, Oral, DAILY, Damian Hartley MD, 81 mg at 03/23/24 0838 atorvastatin (LIPITOR) tablet 40 mg, 40 mg, Oral, QHS, Damian Hartley MD, 40 mg at 03/22/242015 calcium carbonate (OSCAL-500) tablet 500 mg, 500 mg, Oral, BID MEALS, Damian Hartley MD, 500 mg at 03/23/24 0839 cholecalciferol (vitamin D3) tablet 2,000 Units, 2,000 Units, Oral, DAILY, Damian Hartley MD, 2,000 Units at 03/23/24 0838 esmolol in saline (BREVIBLOC) 2,500 mg/250 mL (10 mg/mL) infusion, 25-300 mcg/kg/min, IV Infusion, TITRATE, Damian Hartley MD, Stopped at 03/23/24 0917 HYDROcodone-acetaminophen (NORCO 5) 5-325 mg tablet 1 tablet, 1 tablet, Oral, Q6HPRN, Damian Hartley MD, 1 tablet at 03/23/24 0621 HYDROcodone-acetaminophen (NORCO) 10-325 mg tablet 1 tablet, 1 tablet, Oral, Q6HPRN, Damian Hartley MD, 1 tablet at 03/22/24 0922 lidocaine 1% (PF) (XYLOCAINE) injection 5 mL, 5 mL, Subcutaneous, PRN, Damian Hartley MD metoprolol (LOPRESSOR) injection 5 mg, 5 mg, Intravenous, Q6HPRN, Damian Hartley MD metoprolol tartrate (LOPRESSOR) tablet 50 mg, 50 mg, Oral, Q6H, Damian Hartley MD, 50 mg at 03/23/24 0612 NaCl 0.9% (NS) injection 10 mL, 10 mL, Slow IV Push, PRN, Damian Hartley MD cyclobenzaprine (FLEXERIL) tablet 5 mg, 5 mg, Oral, TIDPRN, Ana Pérez MD, 5 mg at 03/22/24 0018 gabapentin (NEURONTIN) capsule 400 mg, 400 mg, Oral, TID, Ana Pérez MD, 400 mg at 03/23/24 0838 pantoprazole (PROTONIX) EC tablet 40 mg, 40 mg, Oral, DAILY, Ana Pérez MD, 40 mg at 03/23/24 0838 Physical Examination: Temp: [35.8 ?C (96.5 ?F)-36.6 ?C (97.8 ?F)] Heart Rate (monitor): [87-132] Pulse: [89-159] Resp: [12-27] BP: (94-153)/(67-101) MAP (mmHg): [80-115] Intake/Output Summary (Last 24 hours) at 03/23/2024 1131 Last data filed at 03/23/2024 1108 Gross per 24 hour Intake 650.41 ml Output 4450 ml Net -3799.59 ml General: alert and oriented x3, no apparent distress HEENT: pupils equal, round, reactive to light Neck: full range of motion Lungs: Decreased breath sounds and rales Cardio: irregular rhythm, variable S1, S2 normal; no murmurs appreciated Labs/Imaging/Pathology - reviewed EKG : Multifocal atrial tachycardia Echocardiography : Newly reduced EF 15 to 20% Nuclear imaging : None Cardiac Cath : Pending Assessment/Plan: Rick Mathur is a 63 year old female admitted with: Multifocal atrial tachycardia in the setting of lung disease New onset HFrEF History of intracranial bleed Patient has a regular rhythm on EKG and telemetry however there are clear P waves with different morphology and given the rate is high is most likely multifocal atrial tachycardia especially in the scenario of underlying lung disease. Recommendations: Continue digoxin to 250 mcg, check digoxin levels DC IV beta-ga if concerns for cardiogenic shock Agree with right and left heart cath If heart rate is uncontrolled cannulated p.o. metoprolol 50 mg every 8 can be used Underlying lung disease Thank you for your consult. Discussed with Dr. Dulce MD. Cardiovascular Disease Fellow, PGY-[id number] Pager: [phone] Associated attestation - Cristopher Raymundo MD - 03/27/2024 11:24 AM CDT Addendum Note from Cardiac Electrophysiology Attending: Newly diagnosed HFrEF Consider ischemic evaluation Consider involvement of HF team ICD consideration if there is no improvement in EF despite GDMT After discussion with PRIVATE WATCHMAN/celebrity manager on 03/23/24, I examined this patient. I agree with fellow's note as written. The time spent was 75 minutes for patient care which includes: precharting by reviewing EKGs and prior blood work-up as well as monitor results, obtaining and reviewing her medical chart as well as prior encounters, performing a full comprehensive medical exam and evaluation, discussing a cardiac procedure, documenting clinical information onto this electronic medical chart and independently interpreting prior results with communicating these results to the patient. I appreciate the opportunity to participate in the care of this patient. Sincerely, Cristopher Raymundo MD Cardiac Electrophysiology IM-CARDIOVASCULAR DISEASE [facility] 2024-03-23 09:27:00 Associated Order(s): CONSULT VASCULAR ACCESS Vascular Access Services - Per CCU medical team, PICC insertion order is to be cancelled, as it is no longer needed. VAS will sign off. Please re-consult VAS, as needed. Desmond Estes RN [facility] 2024-03-22 14:41:27 Associated Order(s): CONSULT GENERAL SURGERY General Surgery Consult Reason for Consult: "need for R pigtail chest tube and CVC" History of Present Illness: Rick Mathur is a 63 year old female with the PMH below who presented to this facility with atrial fibrillation with RVR requiring ICU admission. During her work up she was found to have additionally a right sided small pneumothorax. Per review of chart, she has had recurrent PTX events in 2022 and early 2023 and has even undergone right sided pleurodesis. Patient is a poor historian, however she reports mild chest discomfort and pain over her lower extremities associated to cramps. On our examination she is Afib RVR, with normal SaO2 on NC2L. We discussed the reason why we were consulted with patient and her sister on the phone who consented for CVC placement. Past Medical History: Patient has a past medical history of [place]quju-Jgghq-Uqypz atrophy, CVA (cerebral vascular accident), HTN (hypertension), Rheumatoid arthritis, and Spina bifida. Past Surgical History: Patient has a past surgical history that includes spine surgery and leg/ankle surgery proc unlisted. Family History: Patient's family history includes Arthritis in her mother; Coronary Heart Disease in her father; Heart in her father; Pulmonary in her mother. Social History: Patient reports that she has quit smoking. Her smoking use included cigarettes. She has a 25 pack-year smoking history. She has been exposed to tobacco smoke. She has never used smokeless tobacco. She reports current alcohol use. She reports that she does not currently use drugs. Objective: Vitals: Temp: [35.8 ?C (96.4 ?F)-36.2 ?C (97.1 ?F)] Heart Rate (monitor): [105-126] Pulse: [103-158] Resp: [14-28] BP: (81-128)/(64-99) MAP (mmHg): [68-128] Physical exam: General: no apparent distress Neurologic: alert Cardiac: irregular rate and rhythm Chest: unlabored breathing Abdomen: no rebound, guarding, or point tenderness Skin: no rashes Laboratory: Recent Labs 01/02/24 1330 PTINR 0.9 PTPAT 10.4 Recent Labs 03/21/242121 WBC 9.41 HGB 12.4 PLT 196 Recent Labs 11/29/23 0355 12/30/23 0041 03/22/24 0647 NA 135 < > 129* K 4.2 < > 4.1 CL 104 < > 96* TCO2 26 < > 25 BUN 14 < > 10 CREAT 0.31* < > 0.46* GLU 98 < > 109 MG 2.1 < > 2.8* CA 8.7 < > 7.4* PHOS 4.4 -- -- < > = values in this interval not displayed. Recent Labs 03/21/242121 BILIT 0.7 ALT 32 AST 81* ALKPHOS 100 ALB 3.5 There are no current results on file for these tests and/or test for 1 year. Recent Labs 03/21/24212103/22/24 0647 TROPNI 0.098* 0.107* NTBNP 9,590* -- There are no current results on file for these tests and/or test for 1 year. Radiology: No final results containing an impression from the past 30 days were found. Assessment: The patient is presenting with a picture consistent with Afib RVR and right small recurrent PTX s/ppleurodesis in the past. Surgery consulted for CVC placement as well as R pigtail chest tube. Will hold off R pigtail placement since patient had previous pleurodesis which poses patient at higher risk of parenchymal injury. If her symptoms were to worsen on the following hours may consider emergent pigtail placement. Plan: - Underwent CVC placement which was uneventful - CXR confirmed - Will follow AM CXR Dusty Lopez MD 03/22/2024 14:41 Associated attestation - Ysisel Garcia MD - 03/23/2024 8:22 AM CDT I personally examined the patient on 03/22/[address] Lopez's resident note as written . I actively participated in the decision-making process. Please see the resident's note for additional details. History of 3 R sided pleurodesis Now with recurrent PTX, small She has COPD I recommend IR placed apical chest tube, with history of pleuordesis the lung may be quite scared and chest tube placement may be best served under direct visualization Yissel Garcia MD [facility] 2024-03-22 12:00:00 Associated Order(s): CONSULT PS PASTORAL CARE Event Vehicle Inspector visited with patient per consult. Intervention Vehicle Inspector was a spiritual presence and track hoe operator. Vehicle Inspector offered active compassionate listening. Vehicle Inspector prayed for patient healing and recovery. Outcome/Spiritual Assessment Patient received in bed awake. Patient sister and grandson where at bedside. Patient was pleasant and welcoming of the Vehicle Inspector visit. Patient identifies as a Muslim Mandaeism and welcomed prayer from the Vehicle Inspector. Patient was thankful for the visit. Plan Additional Vehicle Inspector support is available upon request. Vehicle Inspector Yanique Baires vijaya Pastoral Care Department [phone] Yanique Baires [facility] 2024-03-22 07:56:04 Associated Order(s): CONSULT CARDIOLOGY [facility] Cardiology Consult PCP: Inocencio Blake Date of Service: 03/22/2024 CHIEF COMPLAINT/reason for consult: Arrhythmias, possible atrial fibrillation HISTORY OF PRESENT ILLNESS Rick Mathur is a 63 years old female, with PMHx of secondary spontaneous PTX s/p chest tube x2 (08/2023, 10/2023), COPD, diastolic CHF, parietal lobe hematoma 2/2 fall (02/2023), Kevkpjw-Lahvh-Lqhmh, spina bifida, muscular dystrophy, RA, tobacco use, presenting as transfer from [facility] for tachycardia. She was found to have hypokalemia over there. EKG suggested atrial fibrillation. She was given intravenous diltiazem and then amiodarone. Right PTX with chest tube placed. Upon arrival, BNP was elevated along with troponin. She denies chest pain. Magnesium was also low. PAST MEDICAL HISTORY Past Medical History: Diagnosis Date Czrbnet-Dmtcw-Hllbi atrophy CVA (cerebral vascular accident) 2022 HTN (hypertension) Rheumatoid arthritis Spina bifida Past Surgical History: Procedure Laterality Date LEG/ANKLE SURGERY PROC UNLISTED SPINE SURGERY Family History Problem Relation Age of Onset Arthritis Mother Pulmonary Mother Heart Father Coronary Heart Disease Father ALLERGIES Allergies Allergen Reactions Darvocet A500 [Propoxyphene N-Acetaminophen] Nausea and/or Vomiting Darvon [Propoxyphene] Nausea and/or Vomiting MEDICATIONS No current facility-administered medications on file prior to encounter. Current Outpatient Medications on File Prior to Encounter Medication Sig Dispense Refill ergocalciferol, vitamin d2, (VITAMIN D2) 1,250 mcg (50,000 unit) capsule Take 1 capsule by mouth weekly. omeprazole 20 mg capsule Take 1 capsule by mouth. furosemide 20 mg tablet Take 1 tablet by mouth in the morning. gabapentin 300 mg capsule Take 400 mg by mouth in the morning and 400 mg at noon and 400 mg in the evening. sjospkobot-botqtuq-wipjmdnm (FIORINAL) 50-325-40 mg per capsule Take 1 capsule by mouth every 4 (four) hours as needed for Pain. HYDROcodone-acetaminophen 10-325 mg tablet Take 1 tablet by mouth every 8 (eight) hours as needed. metoprolol succinate 25 mg CSpX Take 25 mg by mouth 3 (three) times daily. cyclobenzaprine 5 mg tablet Take 1 tablet by mouth 3 (three) times daily as needed for Muscle Spasms. 90 tablet 2 SOCIAL HISTORY Social History Socioeconomic History Marital status: Tobacco Use Smoking status: Former Current packs/day: 0.50 Average packs/day: 0.5 packs/day for 50.0 years (25.0 ttl pk-yrs) Types: Cigarettes Passive exposure: Current Smokeless tobacco: Never Vaping Use Vaping status: Never Used Substance and Sexual Activity Alcohol use: Yes Comment: socially Drug use: Not Currently Social History Narrative Lives home alone 11/28/23: Patient was seen by [facility] to Home Consult Team and the below barriers to health were identified: None Identified Narrative: Home and Living Situation Patient states she lives at home alone on the first floor of an apartment complex in [place], [place] for approximately 6-7 years. She states her sister comes over every day and helps her with medications, cooking, and cleaning. States she has a walker and wheelchair at home and has no problem with moving around her home. States her sisters and neighbors regularly bring her food and she has never missed a meal. Relationship Status Patient states she is single. Has 2 sons, ages 45 and 42, who live in [facility]. States they are healthy and doing well. States she does not see her children and grandchildren as often as she would like, though she did not give a clear reason as to why this is. Transportation States she does not have a car and relies on her sisters to take her to appointments. She states her sisters have no problem transporting her and she has never missed an appointment due to lack of transportation. 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 She states she enjoys working but had to retire in due to pain in her feet. She states she is not currently looking for work. Social Network & Interests She states she has a good support system with her sister and neighbors. States her best friend lives next door and she regularly visits with her. States she can rely on her sisters and neighbors for any assistance. States she enjoys staying at home and watching TV. States she does not like to leave her home unless she has a doctor appointment. Education & Health Literacy States she attended school in [place] and [place] and completed her education up to elementary school (unable to give an exact grade). Patient was unable to list her medications, but knew that she took medications for hypertension, headaches, and pain. She knew that she's scheduled for medication in the morning and afternoon. States her sister comes in the morning and leaves around 3 pm and helps with her medications. States she is left alone after 3 pm and is unable to get a chair lift operator. Outpatient Primary Care States she is seen by Dr. Everett (unable to pronounce name) In [place]. States she is able to make her own follow up appointment and will follow up on her own as needed. Social Determinants of Health Financial Resource Strain: Low Risk (12/30/2023) Overall Financial Resource Strain (CARDIA) Difficulty of Paying Living Expenses: Not hard at all Food Insecurity: No Food Insecurity (12/30/2023) Hunger Vital Sign Worried About Running Out of Food in the Last Year: Never true Ran Out of Food in the Last Year: Never true Transportation Needs: No Transportation Needs (12/30/2023) PRAPARE - Transportation Lack of Transportation (Medical): No Lack of Transportation (Non-Medical): No Physical Activity: Inactive (12/30/2023) Exercise Vital Sign Days of Exercise per Week: 0 days Minutes of Exercise per Session: 0 min Social Connections: Unknown (12/30/2023) Social Connection and Isolation Panel [NHANES] Frequency of Communication with Friends and Family: More than three times a week Marital Status: Never Housing Stability: Low Risk (12/30/2023) Housing Stability Vital Sign Unable to Pay for Housing in the Last Year: No Number of Places Lived in the Last Year: 1 Unstable Housing in the Last Year: No REVIEW OF SYSTEMS At least 10 systems reviewed, negative except as mentioned in HPI PHYSICAL EXAMINATION Vitals: 03/22/24 0400 03/22/24 0500 03/22/24 0600 03/22/24 0750 BP: 110/87 101/68 112/73 125/81 Pulse: 121 115 107 103 Resp: 20 15 14 17 Temp: 35.9 ?C (96.7 ?F) TempSrc: Temporal Artery SpO2: 91% 91% Weight: 47.5 kg (104 lb 11.2 oz) Height: Constitutional: alert and oriented x 3 (person, place and date/time); no apparent distress ENT: normocephalic atraumatic, supple, no lymphadenopathy, no bruits, no JVD Lungs: clear to auscultation bilaterally Cardiovascular: S1, S2 tachycardic, irregular; no murmurs, rubs or gallops GI: soft; non-tender; non-distended; normoactive bowel sounds : not examined Musculoskeletal: Extremities: no clubbing, cyanosis, + edema Skin: no rashes Neuro: no focal deficits LABS - reviewed pertinent labs as below: CBC BMP PT/INR WBC (10*3/?L) Date Value 03/21/2024 9.41 NA (mmol/L) Date Value 03/22/2024 129 (L) No results found for: "PT" PLT (10*3/?L) Date Value 03/21/2024 196 K (mmol/L) Date Value 03/22/2024 4.1 INR (no units) Date Value 01/02/2024 0.9 HGB (g/dL) Date Value 03/21/2024 12.4 BUN (mg/dL) Date Value 03/22/2024 10 HCT (%) Date Value 03/21/2024 37.5 CREATININE (mg/dL) Date Value 03/22/2024 0.46 (L) LIPID PROFILE GLUCOSE (mg/dL) Date Value 03/22/2024 109 No results found for: "CHOL" TSH No results found for: "LDL" No results found for: "TSH" CARDIAC ENZYMES No results found for: "HDL" CK (U/L) Date Value 04/01/2021 382 (H) No results found for: "TRIG" LFTs No results found for: "CKMB" AST(SGOT) (U/L) Date Value 03/21/2024 81 (H) TROPONIN I (ng/mL) Date Value 03/21/2024 0.098 (H) ALTv (U/L) Date Value 03/21/2024 32 No results found for: "BNP" EKG: Multifocal atrial tachycardia ASSESSMENT/PLAN Principal Problem: New onset a-fib Active Problems: Multifocal atrial tachycardia Troponin I above reference range Chronic diastolic congestive heart failure Hypokalemia Cigarette smoker NSVT (nonsustained ventricular tachycardia) Tachycardia-EKG on arrival shows multifocal atrial tachycardia. Initial EKG upon presentation to local hospital was interpreted as atrial fibrillation. She already received intravenous digoxin, diltiazem. Currently on p.o. metoprolol. Will add p.o. diltiazem 30 mg every 6 hours to lower the heart rate. Recommend to correct electrolytes abnormality including low potassium and low magnesium. Treat underlying COPD with oxygen. Given history of intracranial bleeding, it is okay to hold off anticoagulation. We can do outpatient heart monitor to clarify if she truly has atrial fibrillation. I suspect it is atrial tachycardia. Check TSH. Keep potassium above 4 and magnesium above 2. Nonsustained V. tach-keep potassium above 4 and magnesium above 2. Continue metoprolol. Consider pharmacological stress test once stabilized. Troponin elevation-probably due to tachycardia. Echocardiogram to assess ejection fraction and wall motion. Chronic heart failure with preserved ejection fraction-she does have leg edema. We will get chest x-ray to assess volume status. Echocardiogram to assess volume status as well. He has been taking Lasix at home. We may have to switch to spironolactone. Cigarette smoker-recommend smoking cessation. Consider referral vascular disease screening. Thank you for allowing us to participate in the care of your patient. Please feel free to contact us for any questions or if we can be of further assistance. Madelin Beltre MD, FACC, ISSAC Manager Medical Device Division of Cardiovascular Medicine [facility]ly [facility] 2024-01-05 17:34:43 Associated Order(s): CONSULT PULMONARY MEDICINE See initial consult note on 01/28/24. Y OPERATOR Associated attestation - Enid Ferraro MD - 01/05/2024 8:54 PM BUGGY OPERATOR Noited [facility] 2024-01-02 14:14:52 Associated Order(s): CONSULT CARDIOLOGY Images from the original note were not included. Cardiology Consult Note Date of Service: 01/02/2024 14:15 Time: 2:15 PM Service: Pulm Chief Complaint: pneumothorax Reason for consult: cardiac stratification for repeat pleurodesis. History of Present Illness: Rick Mathur is a 63 year old female with PMHx of secondary spontaneous PTX s/p chest tube x2 (08/2023, 10/2023), documented COPD, documented diastolic CHF parietal lobe hematoma 2/2 fall (02/2023), Vhhcqvi-Tgiyc-Rfoxs, spina bifida, muscular dystrophy, RA, tobacco use, presented as transfer from [facility] for right PTX with chest tube placed. Came to MICU due to respiratory distress. On arrival patient sating well on NC and hemodynamically stable. Lung well expanded on CXR. S/p pleurodesis by CT surgery on 12/31/2023. Chest tube kinked overnight 12/30 then removed 01/01. Cardiology consulted for cardiac risk stratification for repeat pleurodesis. ROS: Negative, or as otherwise stated in HPI Past Medical History: Diagnosis Date Qofzvrz-Xnavg-Pzmyn atrophy CVA (cerebral vascular accident) 2022 HTN (hypertension) Rheumatoid arthritis Spina bifida Past Surgical History: Procedure Laterality Date LEG/ANKLE SURGERY PROC UNLISTED SPINE SURGERY Family History Problem Relation Age of Onset Arthritis Mother Pulmonary Mother Heart Father Coronary Heart Disease Father Social History Socioeconomic History Marital status: Tobacco Use Smoking status: Every Day Packs/day: 0.50 Years: 50.00 Additional pack years: 0.00 Total pack years: 25.00 Types: Cigarettes Passive exposure: Current Smokeless tobacco: Never Vaping Use Vaping Use: Never used Substance and Sexual Activity Alcohol use: Yes Comment: socially Drug use: Not Currently Social History Narrative Lives home alone 11/28/23: Patient was seen by [facility] to Home Consult Team and the below barriers to health were identified: None Identified Narrative: Home and Living Situation Patient states she lives at home alone on the first floor of an apartment complex in [place], [place] for approximately 6-7 years. She states her sister comes over every day and helps her with medications, cooking, and cleaning. States she has a walker and wheelchair at home and has no problem with moving around her home. States her sisters and neighbors regularly bring her food and she has never missed a meal. Relationship Status Patient states she is single. Has 2 sons, ages 45 and 42, who live in [place] and [facility]. States they are healthy and doing well. States she does not see her children and grandchildren as often as she would like, though she did not give a clear reason as to why this is. Transportation States she does not have a car and relies on her sisters to take her to appointments. She states her sisters have no problem transporting her and she has never missed an appointment due to lack of transportation. 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 She states she enjoys working but had to retire in due to pain in her feet. She states she is not currently looking for work. Social Network & Interests She states she has a good support system with her sister and neighbors. States her best friend lives next door and she regularly visits with her. States she can rely on her sisters and neighbors for any assistance. States she enjoys staying at home and watching TV. States she does not like to leave her home unless she has a doctor appointment. Education & Health Literacy States she attended school in [place] and [place] and completed her education up to elementary school (unable to give an exact grade). Patient was unable to list her medications, but knew that she took medications for hypertension, headaches, and pain. She knew that she's scheduled for medication in the morning and afternoon. States her sister comes in the morning and leaves around 3 pm and helps with her medications. States she is left alone after 3 pm and is unable to get a chair lift operator. Outpatient Primary Care States she is seen by Dr. Everett (unable to pronounce name) In [place]. States she is able to make her own follow up appointment and will follow up on her own as needed. Social Determinants of Health Financial Resource Strain: Low Risk (12/30/2023) Overall Financial Resource Strain (CARDIA) Difficulty of Paying Living Expenses: Not hard at all Food Insecurity: No Food Insecurity (12/30/2023) Hunger Vital Sign Worried About Running Out of Food in the Last Year: Never true Ran Out of Food in the Last Year: Never true Transportation Needs: No Transportation Needs (12/30/2023) PRAPARE - Transportation Lack of Transportation (Medical): No Lack of Transportation (Non-Medical): No Physical Activity: Inactive (12/30/2023) Exercise Vital Sign Days of Exercise per Week: 0 days Minutes of Exercise per Session: 0 min Social Connections: Unknown (12/30/2023) Social Connection and Isolation Panel [NHANES] Frequency of Communication with Friends and Family: More than three times a week Marital Status: Never Housing Stability: Low Risk (12/30/2023) Housing Stability Vital Sign Unable to Pay for Housing in the Last Year: No Number of Places Lived in the Last Year: 1 Unstable Housing in the Last Year: No Allergies Allergen Reactions Darvocet A500 [Propoxyphene N-Acetaminophen] Nausea and/or Vomiting Darvon [Propoxyphene] Nausea and/or Vomiting Prior to Admission medications Medication Sig Start Date End Date Taking? Authorizing Provider furosemide 20 mg tablet Take 1 tablet by mouth in the morning. Doctor Unassigned, [place] gabapentin 300 mg capsule Take 1 capsule by mouth in the morning and 1 capsule at noon and 1 capsule in the evening. Doctor Unassigned, [place] khyzjfjqys-wkovxgz-gdrsrvaa (FIORINAL) 50-325-40 mg per capsule Take 1 capsule by mouth every 4 (four) hours as needed for Pain. Doctor Unassigned, [place] cyclobenzaprine 5 mg tablet Take 2 tablets by mouth in the morning and 2 tablets at noon and 2 tablets in the evening. Doctor Unassigned, [place] HYDROcodone-acetaminophen 10-325 mg tablet Take 1 tablet by mouth every 8 (eight) hours as needed. Doctor Unassigned, [place] metoprolol succinate 25 mg CSpX Take 25 mg by mouth 3 (three) times daily. Doctor Unassigned, [place] Current Facility-Administered Medications: cyclobenzaprine (FLEXERIL) tablet 10 mg, 10 mg, Oral, TID, Kahlil Miller DO, 10 mg at 01/02/24 1308 furosemide (LASIX) tablet 20 mg, 20 mg, Oral, DAILY, Kahlil Miller DO, 20 mg at 01/02/24 0744 pantoprazole (PROTONIX) EC tablet 40 mg, 40 mg, Oral, DAILY, Kahlil Miller DO, 40 mg at 01/02/24 0744 bniebwjtmm-erdavwuyassvm-qkhz (ESGIC) 50-325-40 mg tablet 1 tablet, 1 tablet, Oral, Q4HPRNWilliam Andrew Carter, DO, 1 tablet at 01/01/24 1713 cyclobenzaprine (FLEXERIL) tablet 5 mg, 5 mg, Oral, TIDPRN, Niall Shea DO, 5 mg at 12/31/23 1039 heparin (porcine) injection 5,000 Units, 5,000 Units, Subcutaneous, Q12H, Inder Resendiz DO, 5,000 Units at 01/02/24 0744 HYDROcodone-acetaminophen (NORCO 5) 5-325 mg tablet 1 tablet, 1 tablet, Oral, Q6HPRN, Maddie Sanders MD, 1 tablet at 01/02/24 0931 ipratropium-albuteroL (DUONEB) 0.5 mg-3 mg(2.5 mg base)/3 mL nebulizer solution 3 mL, 3 mL, Inhalation, TIDPRN, Niall Shea DO nicotine (NICODERM) 21 mg/24 hr patch 1 Patch, 1 Patch, Topical, Q24H, Sidiq, Ryan Vizcarra DO, 1 Patch at 01/01/24 0426 polyethylene glycol 3350 powder 17 g, 17 g, Oral, DAILY, Sidiq, Ryan Vizcarra, DO QUEtiapine (SEROQUEL) tablet 25 mg, 25 mg, Oral, QHSPRN, Sidiq, Ryan Zackery, DO, 25 mg at 01/02/24 0247 sennosides-docusate sodium (SENOKOT-S) 8.6-50 mg per tablet 1 tablet, 1 tablet, Oral, DAILY, Niall Shea DO, 1 tablet at 01/02/24 0743 gabapentin (NEURONTIN) capsule 300 mg, 300 mg, Oral, TID, Sidiq, Ryan Zackery, DO, 300 mg at 01/02/24 1309 HYDROcodone-acetaminophen (NORCO) 10-325 mg tablet 1 tablet, 1 tablet, Oral, Q8HPRN, Sidiq, Ryan Zackery, DO, 1 tablet at 01/02/24 1308 metoprolol succinate XL (TOPROL XL) tablet 25 mg, 25 mg, Oral, BID, Sidiq, Ryan Zackery, DO, 25 mg at 01/02/24 0744 varenicline (CHANTIX) tablet 0.5 mg, 0.5 mg, Oral, DAILY, Sidiq, Ryan Vizcarra, DO, 0.5 mg at 01/02/24 0743 Physical Examination: Temp: [35.8 ?C (96.4 ?F)-36.6 ?C (97.9 ?F)] Heart Rate (monitor): [102-110] Pulse: [68-121] Resp: [18-20] BP: (101-142)/(67-95) MAP (mmHg): [79-108] Intake/Output Summary (Last 24 hours) at 01/02/2024 1415 Last data filed at 01/01/2024 1802 Gross per 24 hour Intake -- Output 10 ml Net -10 ml Gen: comfortable, no distress Neck: supple, no LAD or JVD Cardio: S1 S2 RRR without murmurs Pulm: wheezing bilaterally Abd: soft, non-tender, non-distended Ext: no clubbing or edema Labs/Imaging/Pathology - Reviewed EKG: Sinus tachycardia with Premature supraventricular complexes and with occasional Premature ventricular beats Nonspecific T wave abnormality Abnormal ECG When compared with ECG of 25-NOV-2023 04:13, Premature supraventricular complexes are now Present T wave inversion no longer evident in Anterior leads T wave inversion now evident in Lateral leads Confirmed by CHELSEA VEGA MD ([id number]) on 01/01/2024 1:28:32 PM Echocardiography: Left Ventricle Left ventricle size is normal. Normal wall thickness. Normal wall motion. Normal systolic function with a visually estimated EF of 55 - 60%. There is grade 1 diastolic dysfunction. Right Ventricle Right ventricle size is normal. Normal systolic function. Left Atrium Left atrium is moderately dilated. Left atrium volume index is 44.9 mL/m2. Right Atrium Right atrium size is normal. IVC/SVC IVC diameter is less than or equal to 21 mm and decreases greater than 50% during inspiration; therefore the estimated right atrial pressure is normal (~0-5 mmHg). Mitral Valve Mild mitral annular calcification. No stenosis. Tricuspid Valve Tricuspid valve structure is normal. Trace transvalvular regurgitation. Insufficient tricuspid regurgitation jet to estimate RVSP . Aortic Valve Aortic valve structure is normal. Pulmonic Valve Not well visualized. Ascending Aorta Normal sized sinus of Valsalva. Pericardium The pericardium is normal. No pericardial effusion. Tele 01/01 - sinus tach, HR 117, PVCs and frequent PACs, some sinus tachyarrhythmia, some trigeminal PVCs, HR up as high as 154, HR trending 102-115, PVC burden 1-10 Risk Stratification Assessment/Plan: Rick Mathur is a 63 year old female admitted with: Acute hypoxic respiratory failure 2/2 right-sided PTX s/p chest tube placement Hx of secondary spontaneous PTX s/p chest tube x 2 (08/2023, 10/2023) Documented COPD History of tobacco use Pt here for secondary spontaneous PTX s/p chest tube x2 (08/2023, 10/2023), documented COPD, documented diastolic CHF. Cardiology consulted for risk stratification prior to repeat pleurodesis. - Normal Recent echo. Can proceed as planned for low risk procedure - continue telemetry - ASA and statin Thank you for your consult. Discussed with Dr. Maddox. Cardiology will continue to follow. Ian Jones, MS3 01/02/2024 2:28 PM I personally examined the patient on 01/02/2024 and verified the medical student's documentation and/or findings. Additionally, I have personally performed or re-performed the physical exam and medical decision making of this patient's evaluation and management service. Edits to the note were made upon review. I personally examined the patient and agree with the resident's note as written, including any changes or additions that the resident may have made to the medical student's note. I actively participated in the decision making process. Please see the resident's note for additional details DOS 01/03/24 Oj Maddox MD, [facility] [place] Head Division of Cardiovascular Medicine [facility] 2023-12-30 07:26:53 Associated Order(s): CONSULT CARDIOTHORACIC SURGERY Cardiothoracic Consult Date of Service: 12/30/23 Requesting Physician: Niall Shea, IDENTIFYING DATA Patient name: Rick Mathur : 1960 Primary care physician: Minh Ge HISTORY OF PRESENT ILLNESS We are asked to render an opinion regarding Rick Mathur, 63 year old, female, hx of COPD, diastolic CHF, Epfkfbs-Aifuw-Qzavf, spina bifida, previous CVA 03/22 and severe emphysema who presents with multiple spontaneous pneumothorax requiring chest tube for 2 years (ep 09/22; 11/23 and 2 years ago). She reports ptx are always on the right side, developing with gradually SOB over 3-4 weeks worsening in the past days. Denies chest pain, SOB, fever. She does not use oxygen at home but reports she was due to start soon. Uses walker for locomotion and states she could go long distances with it if needed, however she does not do it. Last , she reports the plans from the team who treated her was to wait. Lifelong smoker, 84 pack year. Does not drink alcohol since February 2023. Upon exam she is on NC 5L CURRENT MEDICATIONS & ALLERGIES Allergies: Allergies Allergen Reactions Darvocet A500 [Propoxyphene N-Acetaminophen] Nausea and/or Vomiting Darvon [Propoxyphene] Nausea and/or Vomiting Medications prior to Admission: No current facility-administered medications on file prior to encounter. Current Outpatient Medications on File Prior to Encounter Medication Sig Dispense Refill furosemide 20 mg tablet Take 1 tablet by mouth in the morning. gabapentin 300 mg capsule Take 1 capsule by mouth in the morning and 1 capsule at noon and 1 capsule in the evening. ubkhglnncv-falprdy-mobznfce (FIORINAL) 50-325-40 mg per capsule Take 1 capsule by mouth every 4 (four) hours as needed for Pain. cyclobenzaprine 5 mg tablet Take 2 tablets by mouth in the morning and 2 tablets at noon and 2 tablets in the evening. HYDROcodone-acetaminophen 10-325 mg tablet Take 1 tablet by mouth every 8 (eight) hours as needed. metoprolol succinate 25 mg CSpX Take 25 mg by mouth 3 (three) times daily. Hospital Medications: Current Facility-Administered Medications Medication Dose Route Frequency Last Rate Last Admin ywdhcqotli-ngiazhowexohj-bkub (ESGIC) 50-325-40 mg tablet 1 tablet 1 tablet Oral Q4HPRN ipratropium-albuteroL (DUONEB) 0.5 mg-3 mg(2.5 mg base)/3 mL nebulizer solution 3 mL 3 mL Inhalation TIDPRN nicotine (NICODERM) 21 mg/24 hr patch 1 Patch 1 Patch Topical Q24H 1 Patch at 12/30/23 0253 polyethylene glycol 3350 powder 17 g 17 g Oral DAILY QUEtiapine (SEROQUEL) tablet 25 mg 25 mg Oral QHSPRN 25 mg at 12/30/23 0251 sennosides-docusate sodium (SENOKOT-S) 8.6-50 mg per tablet 1 tablet 1 tablet Oral DAILY gabapentin (NEURONTIN) capsule 300 mg 300 mg Oral TID HYDROcodone-acetaminophen (NORCO) 10-325 mg tablet 1 tablet 1 tablet Oral Q8HPRN 1 tablet at 12/30/23 0016 metoprolol succinate XL (TOPROL XL) tablet 25 mg 25 mg Oral BID 25 mg at 12/30/23 0016 varenicline (CHANTIX) tablet 0.5 mg 0.5 mg Oral DAILY REVIEW OF SYSTEMS Reviewed previous ROS from history and physical dated 12/30/23 and there are no changes. HISTORIES PAST MEDICAL HISTORY Past Medical History: Diagnosis Date Bjgiops-Bnfrk-Artui atrophy CVA (cerebral vascular accident) 2022 HTN (hypertension) Rheumatoid arthritis Spina bifida PAST SURGICAL HISTORY Past Surgical History: Procedure Laterality Date LEG/ANKLE SURGERY PROC UNLISTED SPINE SURGERY SOCIAL HISTORY Social History Tobacco Use Smoking status: Every Day Packs/day: 0.50 Years: 50.00 Additional pack years: 0.00 Total pack years: 25.00 Types: Cigarettes Passive exposure: Current Smokeless tobacco: Never Vaping Use Vaping Use: Never used Substance Use Topics Alcohol use: Yes Comment: socially Drug use: Not Currently FAMILY HISTORY Family History Problem Relation Age of Onset Arthritis Mother Pulmonary Mother Heart Father Coronary Heart Disease Father PHYSICAL EXAMINATION BP (!) 79/53 | Pulse 107 | Temp 36.2 ?C (97.1 ?F) (Axillary) | Resp 23 | Ht 1.448 m (4' 9") | Wt 41.7 kg (92 lb) | SpO2 97% | BMI 19.91 kg/m? General: Patient is alert and oriented x4 and in no acute distress. Head: Head is normocephalic, atraumatic. Eyes: lids and lashes normal Mouth/Throat-lips, tongue, mucosa normal Neck Jugular veins: not examined Respiratory: NC 6L, right CT with 10cc fluid total. Tube on 50 Respiratory effort: breathing comfortably Auscultations of lungs: bilateral wheezes, mild Cardiovascular: Chest - auscultation heart: The heart rate is normal with regular rhythm, and without murmurs, rubs, or gallops. Carotid Arteries (Bruits): normal - no bruits Pedal Pulses: Palpable bilaterally and normal Extremities (lower): edema - none. Veins - no varicosities bilaterally. GastrointestinalI: Abdomen- palpation: soft, non tender Skin Inspection - phlebitis, pustules: negative Neurologic: Orientation: awake and alert Mood and Affect: appropriate MEDICAL DECISION MAKING LABS CBC BMP PT/INR WBC (10*3/?L) Date Value 12/30/2023 8.64 NA (mmol/L) Date Value 12/30/2023 133 (L) No results found for: "PT" RBC (10*6/?L) Date Value 12/30/2023 3.58 (L) K (mmol/L) Date Value 12/30/2023 4.1 No results found for: "PTINR" PLT (10*3/?L) Date Value 12/30/2023 284 CALCIUM (mg/dL) Date Value 12/30/2023 8.4 (L) HGB (g/dL) Date Value 12/30/2023 11.3 (L) CL (mmol/L) Date Value 12/30/2023 100 aPTT HCT (%) Date Value 12/30/2023 34.7 (L) BUN (mg/dL) Date Value 12/30/2023 22 No results found for: "APTTPAT" CREATININE (mg/dL) Date Value 12/30/2023 0.56 GLUCOSE (mg/dL) Date Value 12/30/2023 101 PHENYTOIN CO2 TOTAL (mmol/L) Date Value 12/30/2023 30 No results found for: "PHENYTOIN" No results found for: "PHENYFREE" No results found for: "PHENYTLTD" Liver Function Test: ALBUMIN (g/dL) Date Value 04/01/2021 3.2 (L) No components found for: "KTPRO" BUN (mg/dL) Date Value 12/30/2023 22 CREATININE (mg/dL) Date Value 12/30/2023 0.56 ALTv (U/L) Date Value 04/01/2021 39 (H) AST(SGOT) (U/L) Date Value 04/01/2021 63 (H) No components found for: "ALKP" The labs are acceptable given the patient's condition and do not require intervention or further study. RADIOLOGY No final results containing an impression from the past 30 days were found. DIAGNOSIS / ASSESSMENT Rick Mathur, 63 year old, female, hx of COPD and severe emphysema who presents with multiple spontaneous pneumothorax requiring chest tube. We will follow up on recommended work up and consult and discuss on VATS vs bedside chemical pleurodesis. MANAGEMENT OPTIONS & PLAN - Repeat CT chest - Cardiology for risk stratification - We will continue to follow up, no acute surgical intervention Carol Mathis MD PGY-1 Department of Surgery Y OPERATOR Associated attestation - Angeles Workman MD - 01/02/2024 8:03 AM BUGGY OPERATOR I have personally seen and evaluated this patient, reviewed pertinent workup, including independently reviewing imaging, and formulated this assessment and plan of care in the discussion with Dr. Mathis on 01/02/2024 at 7:03 AM Addendum: Ms. Mathur is a 63 year old female with spontaneous recurrent secondary pneumothorax. Patient overall is a high risk surgical candidate. Will attempt doxy pleurodesis. Will reserve surgery for failure. I would like to thank Trent Cornejo MD and Minh Ge for the opportunity to see such a nice patient as Ms. Mathur. [facility] 2023-11-27 17:28:07 PULMONARY MEDICINE CONSULTATION NOTE Consultation requested by: Crescencio Wilson MD Date of Service: 11/27/2023 17:28 HD #: 2 CC: Shortness of breath Reason for Consultation: pt transferred from OSH for pneumothorax s/p chest tube to suction from OSH. Please assist with managing chest tube History of Present Illness Rick Mathur is a 62 year old female with PMH Charcot Juvencio Tooth Disease, muscular dystrophy, reported COPD (no PFTs) with active smoking (55 pack year history) presenting from OSH for pneumothorax s/p chest tube placement. Pulm was consulted for help with management of chest tube. Patient reports that for the past week she some increased work in breathing. She reports that her sisters were concerned about her worsening breathing and brought her to her doctor who noted she was hypoxic, and was subsequently sent to the ED where she was found to have a pneumothorax and had chest placed. Of note, she reports that she had a similar chest tube placed in [place] approximately 6 months ago on the same side for a pneumothorax. Otherwise, she reports a minimal cough that has not increased in frequency and some morning nasal congestion. She otherwise remains asymptomatic denying any recent illness, sputum production, fever, chills, or chest pain. This morning she denied any shortness of breath. Patient is an everyday smoker for approximately 55 years. She reports that she is mostly wheelchair bound but does have a walker that she has been using more recently with a therapist. Interval History: Chest tube drain clamped overnight and small PTX noted on apex of right lung, PTX stable overnight with continued trial of drain clamp, upon review of further imaging in AM PTX stable and chest tube drain was pulled. Social History Tobacco Use Smoking Status Every Day Packs/day: 0.50 Years: 50.00 Additional pack years: 0.00 Total pack years: 25.00 Types: Cigarettes Passive exposure: Current Smokeless Tobacco Never PAST MEDICAL HISTORY Past Medical History: Diagnosis Date Zxxijkr-Avrep-Jfeoq atrophy CVA (cerebral vascular accident) 2022 HTN (hypertension) Rheumatoid arthritis Spina bifida Past Surgical History: Procedure Laterality Date LEG/ANKLE SURGERY PROC UNLISTED SPINE SURGERY Family History Problem Relation Age of Onset Arthritis Mother Pulmonary Mother Heart Father Coronary Heart Disease Father Social History Socioeconomic History Marital status: Tobacco Use Smoking status: Every Day Packs/day: 0.50 Years: 50.00 Additional pack years: 0.00 Total pack years: 25.00 Types: Cigarettes Passive exposure: Current Smokeless tobacco: Never Vaping Use Vaping Use: Never used Substance and Sexual Activity Alcohol use: Yes Comment: socially Drug use: Not Currently Social History Narrative Lives home alone Social Determinants of Health Financial Resource Strain: Low Risk (11/25/2023) Overall Financial Resource Strain (CARDIA) Difficulty of Paying Living Expenses: Not very hard Food Insecurity: No Food Insecurity (11/25/2023) Hunger Vital Sign Worried About Running Out of Food in the Last Year: Never true Ran Out of Food in the Last Year: Never true Transportation Needs: No Transportation Needs (11/25/2023) PRAPARE - Transportation Lack of Transportation (Medical): No Lack of Transportation (Non-Medical): No Physical Activity: Inactive (11/25/2023) Exercise Vital Sign Days of Exercise per Week: 0 days Minutes of Exercise per Session: 0 min Social Connections: Unknown (11/25/2023) Social Connection and Isolation Panel [NHANES] Frequency of Communication with Friends and Family: More than three times a week Marital Status: Never Housing Stability: Low Risk (11/25/2023) Housing Stability Vital Sign Unable to Pay for Housing in the Last Year: No Number of Places Lived in the Last Year: 1 Unstable Housing in the Last Year: No Allergies: Darvocet a500 [propoxyphene n-acetaminophen] and Darvon [propoxyphene] Current Hospital Medications: Current Facility-Administered Medications Medication Dose Route Frequency Last Rate Last Admin polyethylene glycol 3350 powder 17 g 17 g Oral DAILY 17 g at 11/27/23 0758 sennosides (SENOKOT) tablet 8.6 mg 8.6 mg Oral DAILY 8.6 mg at 11/27/23 0758 acetaminophen (TYLENOL) tablet 650 mg 650 mg Oral Q6HPRN 650 mg at 11/26/23 0800 cyclobenzaprine (FLEXERIL) tablet 10 mg 10 mg Oral TIDPRN 10 mg at 11/27/23 0758 furosemide (LASIX) tablet 20 mg 20 mg Oral DAILY 20 mg at 11/27/23 0758 gabapentin (NEURONTIN) capsule 300 mg 300 mg Oral TIDPRN 300 mg at 11/27/23 1354 heparin (porcine) injection 5,000 Units 5,000 Units Subcutaneous Q12H 5,000 Units at 11/27/23 0758 HYDROcodone-acetaminophen (NORCO) 10-325 mg tablet 1 tablet 1 tablet Oral Q8HPRN 1 tablet at 11/27/23 1250 ipratropium-albuteroL (DUONEB) 0.5 mg-3 mg(2.5 mg base)/3 mL nebulizer solution 3 mL 3 mL Inhalation QIDPRN metoprolol succinate XL (TOPROL XL) tablet 25 mg 25 mg Oral BID 25 mg at 11/27/23 0758 Home Medications: Current Facility-Administered Medications Medication Dose Route Frequency Last Rate Last Admin polyethylene glycol 3350 powder 17 g 17 g Oral DAILY 17 g at 11/27/23 0758 sennosides (SENOKOT) tablet 8.6 mg 8.6 mg Oral DAILY 8.6 mg at 11/27/23 0758 acetaminophen (TYLENOL) tablet 650 mg 650 mg Oral Q6HPRN 650 mg at 11/26/23 0800 cyclobenzaprine (FLEXERIL) tablet 10 mg 10 mg Oral TIDPRN 10 mg at 11/27/23 0758 furosemide (LASIX) tablet 20 mg 20 mg Oral DAILY 20 mg at 11/27/23 0758 gabapentin (NEURONTIN) capsule 300 mg 300 mg Oral TIDPRN 300 mg at 11/27/23 1354 heparin (porcine) injection 5,000 Units 5,000 Units Subcutaneous Q12H 5,000 Units at 11/27/23 0758 HYDROcodone-acetaminophen (NORCO) 10-325 mg tablet 1 tablet 1 tablet Oral Q8HPRN 1 tablet at 11/27/23 1250 ipratropium-albuteroL (DUONEB) 0.5 mg-3 mg(2.5 mg base)/3 mL nebulizer solution 3 mL 3 mL Inhalation QIDPRN metoprolol succinate XL (TOPROL XL) tablet 25 mg 25 mg Oral BID 25 mg at 11/27/23 0758 Review of Systems: General: - fever, - chills, - weight loss/increase, - dizziness, - fatigue, - change in appetite HEENT: - headache, - change in hearing, - change in vision, - sinus congestion, rhinorrhea, - post nasal drainage, - watery eyes, - sore throat Hematologic: - bleeding disorder Respiratory: -cough, - shortness of breath, - dyspnea on exertion, - wheezing - orthopnea, - PND Cardiovascular: - chest pain, - palpitations, - syncope, -lower extremity swelling, Gastrointestinal: - abdominal pain, - nausea, - vomiting, - diarrhea, - constipation, - melena, - hematochezia, - hematemesis Genitourinary: - dysuria, - hematuria, - increased frequency, - difficulty urinating, - difficulty initiating Neurologic: -weakness, -dizziness, -headache Endocrine: - heat/cold intolerance, -polyuria Musculoskeletal: - joint pain, - back pain, - muscle spasms Integument: - rash, - lesion Psych: -depression, -anxiety Physical Exam and Objective Data BP 116/84 | Pulse 83 | Temp 37.1 ?C (98.7 ?F) | Resp 18 | Ht 1.448 m (4' 9.01") | Wt 45.4 kg (100 lb 1.4 oz) | SpO2 92% | BMI 21.65 kg/m? Constitutional: patient alert and in no acute distress Head: normocephalic and atraumatic Cardiovascular: regular rate and rhythm, no murmur, Respiratory: clear breath sounds bilaterally, without wheezes, rales or rhonchi Musculoskeletal: No clubbing or cyanosis Integument: skin color, texture and turgor are normal; Erythema bilaterally at shins Intake/Output Summary (Last 24 hours) at 11/27/2023 1728 Last data filed at 11/27/2023 1110 Gross per 24 hour Intake 240 ml Output 1600 ml Net -1360 ml LABORATORY CBC BMP LFTs WBC (10*3/?L) Date Value 11/27/2023 7.30 NA (mmol/L) Date Value 11/27/2023 136 ALK PHOS (U/L) Date Value 04/01/2021 116 HGB (g/dL) Date Value 11/27/2023 11.9 K (mmol/L) Date Value 11/27/2023 3.8 ALTv (U/L) Date Value 04/01/2021 39 (H) HCT (%) Date Value 11/27/2023 36.7 CALCIUM (mg/dL) Date Value 11/27/2023 8.6 AST(SGOT) (U/L) Date Value 04/01/2021 63 (H) PLT (10*3/?L) Date Value 11/27/2023 280 CL (mmol/L) Date Value 11/27/2023 100 RBC (10*6/?L) Date Value 11/27/2023 3.81 (L) BUN (mg/dL) Date Value 11/27/2023 12 Cardio CREATININE (mg/dL) Date Value 11/27/2023 0.33 (L) No results found for: "NTBNP" Thyroid No results found for: "TSH" No components found for: "GLUC" MICROBIOLOGY: Lab Results Component Value Date CBLD Escherichia coli 04/01/2021 CUR >100,000 CFU/mL Escherichia coli 04/01/2021 RESULTS REVIEWED: OSH Chest X-ray: (11/24) Severe right-sided pneumothorax with complete collapse of the right lung Repeat Chest x-ray: (11/24) Status post placement chest tube with near complete re-expansion of right lung CT PA (11/25): Pending read PFTs None TTE None Assessment & Plan Rick Mathur is a 62 year old female with #Secondary Spontaneous Pneumothorax s/p Chest Tube placement (11/24/23) #Reported COPD (no PFTs on file) #Active smoker (55 pack year history) #Charcot Juvencio Tooth Disease #Spina Bifida #CVA (~7 mo ago per pt) Patient with dyspnea presenting to OSH with CXR showing severe right-sided pneumothorax with complete right lung collapse s/p chest tube placement. Pulm consulted for chest tube management. CT PA pending read, but preliminarily with signs of emphysema and multiple bilateral blebs. Clinical findings consistent with secondary spontaneous pneumothorax likely due to COPD with active smoking. Chest tube drain clamped overnight and small PTX noted on apex of right lung, PTX stable overnight with continued trial of drain clamp, upon review of further imaging in AM PTX stable and chest tube drain was pulled. Patient tolerated the procedure well, awaiting f/u CXR to review sustained expansion of right lung. Recommendations: - stat CXR for worsening hypoxia, hypotension, SOB, or CP - prn albuterol or Duoneb - Follow up with pulmonology outpatient in 2-3 months. Given recurrence of PTX simply with using her arms to move her wheelchair, she would be at risk of another PTX if she were to undergo PFTs and perform the requisite maneuvers. May benefit from IOS testing however will discuss in clinic - Rest per primary Plan was reviewed with Dr. Macario and discussed with the patient. All concerns were addressed and all questions answered. We will continue to follow. Bobby Pham DO PGY-4 Pulmonary & Critical Care Fellow Y OPERATOR Associated attestation - Rico Macario MD - 11/28/2023 8:42 AM BUGGY OPERATOR Attending Addendum: I agree with Dr. Pham's note as written. I actively participated in medical decision making process. Please see fellow's note for additional details. Rico Macario MD. [facility] - Health History and Physical Notes Date/Time Note Provider Source 2024-03-27 18:08:01 Medicine Intensive Care History and Physical Date of Service: 03/27/2024 18:08 ICU day: Intubation Day: CHIEF COMPLAINT: Spontaneous Pneumothorax HISTORY OF PRESENT ILLNESS Rick Mathur is a 63 year old female with a PMH of secondary spontaneous PTX s/p chest tube x3 (08/2023, 10/2023, 12/2023), COPD, diastolic CHF, parietal lobe hematoma 2/2 fall (02/2023), Xtezolr-Aocla-Mzflp, spina bifida, muscular dystrophy, RA, tobacco use, hx of intracranial bleed who is transferred from [facility] with tachycardia concerning for atrial fibrillation. She initially presented to outside hospital [place] ER where she was found to have hypokalemia and afib RVR before being transferred to [facility]. At [facility] she was given IV dilt, metoprolol, digoxin, and amiodarone w/ minimal improvement in rate. She was started on esmolol gtt which improved rate prior to transfer to [place]. TTE revealed LVEF of 15-20% with severe hypokinesis (previous TTE in December 2023 showed EF 55-60% w/ grade 1 diastolic dysfunction). RV dilated with reduced systolic function. LA/RA dilated. PFO/ASD present on doppler. Electrolytes were repleted. Patient with elevated troponins at [facility]. Dr. Beltre read EKG as multifocal atrial tachycardia. Patient transferred to [facility] CCU for ischemic evaluation. Planned for RHC/LHC. EP consulted. HR has improved on lopressor 50 mg TID and digoxin 250 mcg. 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 HR controlled with PO medications. TTF on 03/25. Patient had chest tube placed for PTX by pulmonology. PAST MEDICAL HISTORY Past Medical History: Diagnosis Date Hbrxkll-Ebdia-Gaysb atrophy CVA (cerebral vascular accident) 2022 HTN (hypertension) Rheumatoid arthritis Spina bifida PAST SURGICAL HISTORY Past Surgical History: Procedure Laterality Date LEG/ANKLE SURGERY PROC UNLISTED SPINE SURGERY FAMILY HISTORY Family History Problem Relation Age of Onset Arthritis Mother Pulmonary Mother Heart Father Coronary Heart Disease Father SOCIAL HISTORY Social History Socioeconomic History Marital status: Tobacco Use Smoking status: Former Current packs/day: 0.50 Average packs/day: 0.5 packs/day for 50.0 years (25.0 ttl pk-yrs) Types: Cigarettes Passive exposure: Current Smokeless tobacco: Never Vaping Use Vaping status: Never Used Substance and Sexual Activity Alcohol use: Yes Comment: socially Drug use: Not Currently Social History Narrative Lives home alone 11/28/23: Patient was seen by [facility] to Home Consult Team and the below barriers to health were identified: None Identified Narrative: Home and Living Situation Patient states she lives at home alone on the first floor of an apartment complex in [place], [place] for approximately 6-7 years. She states her sister comes over every day and helps her with medications, cooking, and cleaning. States she has a walker and wheelchair at home and has no problem with moving around her home. States her sisters and neighbors regularly bring her food and she has never missed a meal. Relationship Status Patient states she is single. Has 2 sons, ages 45 and 42, who live in [facility]. States they are healthy and doing well. States she does not see her children and grandchildren as often as she would like, though she did not give a clear reason as to why this is. Transportation States she does not have a car and relies on her sisters to take her to appointments. She states her sisters have no problem transporting her and she has never missed an appointment due to lack of transportation. 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 She states she enjoys working but had to retire in due to pain in her feet. She states she is not currently looking for work. Social Network & Interests She states she has a good support system with her sister and neighbors. States her best friend lives next door and she regularly visits with her. States she can rely on her sisters and neighbors for any assistance. States she enjoys staying at home and watching TV. States she does not like to leave her home unless she has a doctor appointment. Education & Health Literacy States she attended school in [place] and [place] and completed her education up to elementary school (unable to give an exact grade). Patient was unable to list her medications, but knew that she took medications for hypertension, headaches, and pain. She knew that she's scheduled for medication in the morning and afternoon. States her sister comes in the morning and leaves around 3 pm and helps with her medications. States she is left alone after 3 pm and is unable to get a chair lift operator. Outpatient Primary Care States she is seen by Dr. Everett (unable to pronounce name) In [place]. States she is able to make her own follow up appointment and will follow up on her own as needed. Social Determinants of Health Financial Resource Strain: Low Risk (03/22/2024) Overall Financial Resource Strain (CARDIA) Difficulty of Paying Living Expenses: Not hard at all Food Insecurity: No Food Insecurity (03/22/2024) Hunger Vital Sign Worried About Running Out of Food in the Last Year: Never true Ran Out of Food in the Last Year: Never true Transportation Needs: No Transportation Needs (03/22/2024) PRAPARE - Transportation Lack of Transportation (Medical): No Lack of Transportation (Non-Medical): No Physical Activity: Inactive (03/22/2024) Exercise Vital Sign Days of Exercise per Week: 0 days Minutes of Exercise per Session: 0 min Social Connections: Unknown (03/22/2024) Social Connection and Isolation Panel [NHANES] Frequency of Communication with Friends and Family: More than three times a week Marital Status: Housing Stability: Low Risk (03/22/2024) Housing Stability Vital Sign Unable to Pay for Housing in the Last Year: No Number of Places Lived in the Last Year: 1 Unstable Housing in the Last Year: No ALLERGIES Allergies Allergen Reactions Darvocet A500 [Propoxyphene N-Acetaminophen] Nausea and/or Vomiting Darvon [Propoxyphene] Nausea and/or Vomiting REVIEW OF SYSTEMS (-)=Negative,(+)=Positive General: (-) Intubated Skin: Intubated HEENT: Intubated Neck: Intubated Heme: Intubated Resp: Intubated Cardio: Intubated GI: Intubated : Intubated Endo: Intubated Neuro: Intubated Back: Intubated DANNY: Intubated Psych: Intubated PHYSICAL EXAMINATION Vitals: 03/27/24 0715 03/27/24 0905 03/27/24 1610 03/27/24 1704 BP: 114/84 117/69 (!) 85/54 BP Location: Patient Position: Pulse: (!) 44 66 71 60 Resp: Temp: TempSrc: SpO2: 94% 92% 97% 98% Weight: Height: Constitutional: intubated and sedated Resp: Decreased Right lobe breath sounds Cardio: RRR GI: NTP Extremities: Trace edema bilaterally Labs (pertinent only)/Imaging: XR CHEST 1 VW Result Date: 03/27/2024 Impression: When compared to the prior film, there is been interval reexpansion of the right lung. There is a stable pigtail chest tube overlying the right lower lobe. The cardiac silhouette is enlarged. The thoracic aorta remains diffusely ectatic. The left hemidiaphragm is elevated. There are linear opacities in the right mid lung and at both lung bases consistent with atelectasis or scarring. RL: [id number] CHEST 1 VW Result Date: 03/27/2024 1. Large right pneumothorax 2. Collapse of the right lung HS:Y CHEST 1 VW Result Date: 03/27/2024 1. Right chest tube placement 2. Persistent large right pneumothorax 3. Collapsed right lung HS:Y Microbiology: Assessment/Plan: Rick Mathur is a 63 year old female admitted with pneumothorax secondary to spontaneous pneumothorax Neuro Hx of intracerebral hemorrhage (2022) Hx of R posterior MCA territory ICH Hx of CVA 2022 Hx of ICH Spina bifida Patient had intracerebral hemorrhagic stroke, neurology were consulted and agreed with DOAC and DAPT. DOAC being given for Afib and active clot. Sedation/Analgesia: Resp Hx of secondary spontaneous PTX s/p chest tube x 3 (08/2023, 10/2023, 12/2023) Emphysema Documented COPD History of tobacco use Patient has a history of multiple pneumothoraces, she had an episode this morning which was precipitated without a notable trigger, chest tube was placed today. Patient was pending respiratory failure therefore decision to intubate. Intubation was done without any complications. -Vent: PEEP: 5, FiO2: 100 - Chest tube placed today. - Patient got intubated Cardiovascular NSTEMI Multifocal atrial tachycardia New onset HFrEF (EF 15-20%) tachycardia induced cardiomyopathy, NICM IV/C Elevated troponin Occluded LEFT distal posterior tibial artery PFO/ASD Patient with multifocal atrial tachycardia. HR has improved on lopressor 50 mg TID and digoxin 250 mcg. RHC/LHC revealed normal filling pressures and mid LAD 50% stenosis. Findings are suggestive of tachycardia induced cardiomyopathy in the setting of MAT as etiology for severe HFrEF. Patient was supra therapeutic for digoxin, was held at the time, restarted today. - C/w lasix 80 BID - C/w Digoxin 250 daily - C/w metoprolol succinate 100 BID - C/w ASA and Lipitor - Will hold spironolactone for the time being given recent hyperkalemia and need to to shift. FEN/GI Not an active issue ID Not an active issue Renal Hyperkalemia (shifted) Hypokalemia (resolved) Hypomagnesemia (resolved) Hypervolemic hyponatremia Vitamin D deficiency - Replete electrolytes as needed. - Holding Spironolactone, shift potassium if needed. - Outpatient Vit D 50 k weekly - Patient currently receiving lokelma Endo Not active issue Other Concern for opioid overdose from [place] Muscle dystrophy Patient was non responsive in the morning after receiving [place], pinpoint pupils on exam, Narcan was given multiple times. - Narcan as needed DVT prophylaxis: heparin Stress ulcer prophylaxis: PPI Dispo: Prognosis: Poor Code Status: DNR/Agrees to intubate Gia Adames MD Internal Medicine PGY-1 Associated attestation - Donny Lopez DO - 03/28/2024 10:08 AM CDT I personally examined the patient on 03/28/[address] Adames's resident note as written . I actively participated in the decision-making process. Please see the resident's note for additional details. Rick Mathur is a 63 year old female admitted to outside hospital for atrial fibrillation with rapid ventricular response, transferred to [facility] for ischemic evaluation. In interval, patient developed spontaneous pneumothorax and then became obtunded possibly related to medications. Plan: Will wean sedation and assess for spontaneous breathing trials Will hold diuretics and give 500 cc bolus Start tube feeds if unable to extubate Would send cultures and start some antibiotics pending culture results Donyn Lopez DO Interventional Pulmonology [facility] 2024-03-22 22:55:24 CCU Team Admit H&P Date of Service: 03/23/2024 00:21 Date of Service: 03/22/2024 CHIEF COMPLAINT: atrial fibrillation w/ RVR HISTORY OF PRESENT ILLNESS Rick Mathur is a 63 year old female with a PMH of secondary spontaneous PTX s/p chest tube x3 (08/2023, 10/2023, 12/2023), COPD, diastolic CHF, parietal lobe hematoma 2/2 fall (02/2023), Mlppuja-Dyshm-Mmpgl, spina bifida, muscular dystrophy, RA, tobacco use, hx of intracranial bleed who is transferred from [facility] with tachycardia concerning for atrial fibrillation. She initially presented to outside hospital [place] [facility] ER where she was found to have hypokalemia and afib RVR before being transferred to [facility]. At [facility] she was given IV dilt, metoprolol, digoxin, and amiodarone w/ minimal improvement in rate. She was started on esmolol gtt which improved rate prior to transfer to [place]. TTE revealed LVEF of 15-20% with severe hypokinesis (previous TTE in December 2023 showed EF 55-60% w/ grade 1 diastolic dysfunction). RV dilated with reduced systolic function. LA/RA dilated. PFO/ASD present on doppler. Electrolytes were repleted. Patient with elevated troponins at [facility]. Dr. Beltre read EKG as multifocal atrial tachycardia. Patient transferred to [facility] CCU for ischemic evaluation. Upon arrival HR around 100 on esmolol gtt. During my interview patient says she has pain "all over" and says this is a chronic issue for her. Says she has chronic shortness of breath but no new changes. Isn't sure why she had a chest tube previously. Denies having any vomiting or diarrhea but does report frequent episodes of urinary and fecal incontinence. Past medical history: Past Medical History: Diagnosis Date Jtzerci-Gbbor-Uawxq atrophy CVA (cerebral vascular accident) 2022 HTN (hypertension) Rheumatoid arthritis Spina bifida Prior to Admission medications Medication Sig Start Date End Date Taking? Authorizing Provider ergocalciferol, vitamin d2, (VITAMIN D2) 1,250 mcg (50,000 unit) capsule Take 1 capsule by mouth weekly. Yes Doctor Unassigned, [place] omeprazole 20 mg capsule Take 1 capsule by mouth. 07/08/23 Yes Doctor Unassigned, [place] furosemide 20 mg tablet Take 1 tablet by mouth in the morning. Yes Doctor Unassigned, [place] gabapentin 300 mg capsule Take 400 mg by mouth in the morning and 400 mg at noon and 400 mg in the evening. Yes Doctor Unassigned, [place] mxmsveugwm-leaodfo-ymcoqkys (FIORINAL) 50-325-40 mg per capsule Take 1 capsule by mouth every 4 (four) hours as needed for Pain. Yes Doctor Unassigned, [place] HYDROcodone-acetaminophen 10-325 mg tablet Take 1 tablet by mouth every 8 (eight) hours as needed. Yes Doctor Unassigned, [place] metoprolol succinate 25 mg CSpX Take 25 mg by mouth 3 (three) times daily. Yes Doctor Unassigned, [place] cyclobenzaprine 5 mg tablet Take 1 tablet by mouth 3 (three) times daily as needed for Muscle Spasms. 01/06/24 Luz Elena Barnhart MD Allergies Allergen Reactions Darvocet A500 [Propoxyphene N-Acetaminophen] Nausea and/or Vomiting Darvon [Propoxyphene] Nausea and/or Vomiting Past surgical history: Past Surgical History: Procedure Laterality Date LEG/ANKLE SURGERY PROC UNLISTED SPINE SURGERY Allergies: Allergies Allergen Reactions Darvocet A500 [Propoxyphene N-Acetaminophen] Nausea and/or Vomiting Darvon [Propoxyphene] Nausea and/or Vomiting Social history: Social History Socioeconomic History Marital status: Spouse name: Not on file Number of children: Not on file Years of education: Not on file Highest education level: Not on file Occupational History Not on file Tobacco Use Smoking status: Former Current packs/day: 0.50 Average packs/day: 0.5 packs/day for 50.0 years (25.0 ttl pk-yrs) Types: Cigarettes Passive exposure: Current Smokeless tobacco: Never Vaping Use Vaping status: Never Used Substance and Sexual Activity Alcohol use: Yes Comment: socially Drug use: Not Currently Sexual activity: Not on file Other Topics Concern Not on file Social History Narrative Lives home alone 11/28/23: Patient was seen by [facility] to Home Consult Team and the below barriers to health were identified: None Identified Narrative: Home and Living Situation Patient states she lives at home alone on the first floor of an apartment complex in [place], [place] for approximately 6-7 years. She states her sister comes over every day and helps her with medications, cooking, and cleaning. States she has a walker and wheelchair at home and has no problem with moving around her home. States her sisters and neighbors regularly bring her food and she has never missed a meal. Relationship Status Patient states she is single. Has 2 sons, ages 45 and 42, who live in [place] and [facility]. States they are healthy and doing well. States she does not see her children and grandchildren as often as she would like, though she did not give a clear reason as to why this is. Transportation States she does not have a car and relies on her sisters to take her to appointments. She states her sisters have no problem transporting her and she has never missed an appointment due to lack of transportation. 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 She states she enjoys working but had to retire in due to pain in her feet. She states she is not currently looking for work. Social Network & Interests She states she has a good support system with her sister and neighbors. States her best friend lives next door and she regularly visits with her. States she can rely on her sisters and neighbors for any assistance. States she enjoys staying at home and watching TV. States she does not like to leave her home unless she has a doctor appointment. Education & Health Literacy States she attended school in [place] and completed her education up to elementary school (unable to give an exact grade). Patient was unable to list her medications, but knew that she took medications for hypertension, headaches, and pain. She knew that she's scheduled for medication in the morning and afternoon. States her sister comes in the morning and leaves around 3 pm and helps with her medications. States she is left alone after 3 pm and is unable to get a chair lift operator. Outpatient Primary Care States she is seen by Dr. Everett (unable to pronounce name) In [place]. States she is able to make her own follow up appointment and will follow up on her own as needed. Social Determinants of Health Financial Resource Strain: Low Risk (03/22/2024) Overall Financial Resource Strain (CARDIA) Difficulty of Paying Living Expenses: Not hard at all Food Insecurity: No Food Insecurity (03/22/2024) Hunger Vital Sign Worried About Running Out of Food in the Last Year: Never true Ran Out of Food in the Last Year: Never true Transportation Needs: No Transportation Needs (03/22/2024) PRAPARE - Transportation Lack of Transportation (Medical): No Lack of Transportation (Non-Medical): No Physical Activity: Inactive (03/22/2024) Exercise Vital Sign Days of Exercise per Week: 0 days Minutes of Exercise per Session: 0 min Stress: Not on file Social Connections: Unknown (03/22/2024) Social Connection and Isolation Panel [NHANES] Frequency of Communication with Friends and Family: More than three times a week Frequency of Social Gatherings with Friends and Family: Not on file Attends Latter-Day Services: Not on file Active Member of Clubs or Organizations: Not on file Attends Club or Organization Meetings: Not on file Marital Status: Intimate Partner Violence: Not on file Housing Stability: Low Risk (03/22/2024) Housing Stability Vital Sign Unable to Pay for Housing in the Last Year: No Number of Places Lived in the Last Year: 1 Unstable Housing in the Last Year: No Family history: Family History Problem Relation Age of Onset Arthritis Mother Pulmonary Mother Heart Father Coronary Heart Disease Father REVIEW OF SYSTEMS Per HPI PHYSICAL EXAMINATION Temp: [35.8 ?C (96.5 ?F)-36.6 ?C (97.8 ?F)] Heart Rate (monitor): [90-132] Pulse: [89-159] Resp: [14-25] BP: (81-128)/(67-99) MAP (mmHg): [68-128] Body mass index is 24.57 kg/m?. General: no acute distress, alert Eyes: PERRLA ENT: normal external inspection, mucous membranes moist Neck: supple, trachea midline Lungs: scattered crackles, reduced breath sounds Cardio: irregular, rate normal Back: no CVA tenderness, nonpainful to palpation Abdomen: soft, non-tender, non-distended Extremities: cool, bilateral mild edema present Skin: no visible rashes LABS: CBC WBC (10*3/?L) Date Value 03/21/2024 9.41 RBC (10*6/?L) Date Value 03/21/2024 3.97 PLT (10*3/?L) Date Value 03/21/2024 196 HGB (g/dL) Date Value 03/21/2024 12.4 HCT (%) Date Value 03/21/2024 37.5 There are no current results on file for these tests and/or test for 1 year. There are no current results on file for these tests and/or test for 1 year. BMP NA (mmol/L) Date Value 03/22/2024 129 (L) K (mmol/L) Date Value 03/22/2024 4.1 CALCIUM (mg/dL) Date Value 03/22/2024 7.4 (L) CL (mmol/L) Date Value 03/22/2024 96 (L) BUN (mg/dL) Date Value 03/22/2024 10 CREATININE (mg/dL) Date Value 03/22/2024 0.46 (L) GLUCOSE (mg/dL) Date Value 03/22/2024 109 CO2 TOTAL (mmol/L) Date Value 03/22/2024 25 Hepatic Function Panel ALBUMIN (g/dL) Date Value 03/21/2024 3.5 T PROTEIN (g/dL) Date Value 03/21/2024 6.6 TOTAL BILI (mg/dL) Date Value 03/21/2024 0.7 ALTv (U/L) Date Value 03/21/2024 32 AST(SGOT) (U/L) Date Value 03/21/2024 81 (H) ALK PHOS (U/L) Date Value 03/21/2024 100 Coagulation Panel: Recent Labs 01/02/24 1330 PTINR 0.9 PTPAT 10.4 ABG:There are no current results on file for these tests and/or test for 1 year. DM & HLD Panel:There are no current results on file for these tests and/or test for 1 year. EKG/ECHO: 12/30/23 Left Ventricle: Left ventricle size is normal. Normal wall thickness. Normal wall motion. Normal systolic function with a visually estimated EF of 55 - 60%. There is grade 1 diastolic dysfunction. Left Atrium: Left atrium is moderately dilated. Left atrium volume index is 44.9 mL/m2. Right Ventricle: Right ventricle size is normal. Normal systolic function. IVC/SVC: IVC diameter is less than or equal to 21 mm and decreases greater than 50% during inspiration; therefore the estimated right atrial pressure is normal (~0-5 mmHg). 03/22/2024 Left Ventricle: Left ventricle size is normal. Normal wall thickness. Severe global hypokinesis present. Severely reduced systolic function with a visually estimated EF of 15 - 20%. Unable to assess diastolic function due to tachycardia. Left Atrium: Left atrium is severely dilated. PFO/ASD present viewable by color Doppler. Right Atrium: Right atrium is severely dilated. Right Ventricle: Right ventricle is mildly dilated. Moderately reduced systolic function. Tricuspid Valve: Mild transvalvular regurgitation. Right ventricular systolic pressure is 30-35 mmHg. RA pressure is 0-5 mmHg. Additional Imaging: XR CHEST 1 VW Result Date: 03/22/2024 Expected appearance of right IJ central catheter. Unchanged small right pneumothorax and pleural effusion. End of Report T REVIEW Recent Admission Discharge Summary: Rick Mathur is a 63 year old female, with PMHx of hx of secondary spontaneous PTX s/p chest tube x2 (08/2023, 10/2023), documented COPD, HFpEF (EF 55-60%) parietal lobe hematoma 2/2 fall (02/2023), Vaqeroc-Ayfgv-Bzpel, spina bifida, muscular dystrophy, RA, tobacco use, presented as transfer from [facility] for right PTX with chest tube placed. Admitted to MICU due to respiratory distress. On arrival patient satting well on NC and hemodynamically stable. CTS consulted for pleurodesis vs VATS. Stable and transferred to the floor. Underwent pleurodesis but no improvement on imaging. CTS removed chest tube 01/01 and IR placed 10 Fr cath. Repeat pleurodesis performed 01/02. Repeat imaging the following day showed a well expanded lung. Pulmonary medicine and CTS signed off, will need follow up for both services' op clinic in 2-3 weeks. Pt w/ urinary retention throughout the day requiring straight cath every ~ 12hrs. Pt unable to self cath d/t co morbidities and HH can not come that often to straight cath. Will d/c with mccauley in place and will need to follow up in urology clinic in 2 weeks. At this time, pt is medically optimized for discharge. Last Office Visit: Rick Mathur is a 63 y.o. female who presents on 03/09/2024 for follow up She has H/O spina bifida ,muscular dystrophy ,rheumatoid arthritis She has severe neuropathy and cannot feel her hands . Admitted to [facility] in February 2023 Rick Mathur is 62 y.o. female with HTN, reported muscular dystrophy, spina bifida presenting with ICH either due to trauma vs stroke. She was seen by neuro ICU and repeat CT showed stable ICH She also had MRI completed which show unchanged appearance of intraparenchymal hematoma in right parietal lobe which measuring about 4.8 cm. Seen by neurology and recommended no intervention needed as stable hematoma Discharged to [facility] and got out in April 2023 hx of secondary spontaneous PTX s/p chest tube x2 (08/2023, 10/2023,12/2023 ), S/P pleurodesis again in december 2023 ASSESSMENT/PLAN: Rick Mathur is a 63 year old female admitted to the hospital with: Multifocal atrial tachycardia vs Atrial fibrillation New onset HFrEF (EF 15-20%) Elevated troponin Hypokalemia, treated Hypervolemic hyponatremia Occluded LEFT distal posterior tibial artery PFO/ASD Hx of intracerebral hemorrhage (2022) Patient with multifocal atrial tachycardia vs atrial fibrillation uncontrolled on amiodarone gtt, lopressor pushes, oral lopressor, diltiazem PO/IV, digoxin load, Kcl gtt. Now rate controlled on esmolol gtt. Patient with w/ acute drop in LVEF requiring aggressive diuresis. Transferred to [place] for ischemic evaluation. Noted to have occluded L distal posterior tibial artery. Received dose of lovenox but AC deferred due to history of hemorrhagic stroke. On interview difficult to assess the extend of patient's insight/understanding into her medical conditions. Recommend addressing code status w/ her sister and MPOA Soledadsha Moore in AM to clarify. - admit to CCU - esmolol gtt - trend troponin - [facility] to evaluate coronaries - c/w aspirin, statin - IV diuresis - monitor I/Os, electrolytes - npo for possible procedure - discuss risks/benefits of AC w/ MPOA given hx of hemorrhagic stroke Hx of secondary spontaneous PTX s/p chest tube x 3 (08/2023, 10/2023, 12/2023) Documented COPD History of tobacco use -monitor oxygen requirements -consider pulm consult in AM Hx of CVA 2022 Hx of ICH Spina bifida Muscle dystrophy ADL/IADL, PT/OT when stable Pain: not an active problem Bowel Regimen: senna DVT Prophylaxis: heparin Code status: presumed full Carol Simpson M.D. Internal Medicine Associated attestation - Francisco Willis MD - 03/25/2024 5:51 PM CDT Patient seen and examined on 03/23/24. I reviewed EMR and discussed plan of care with the team. I agree with Dr. Simpson, the resident's note including findings and plan as written. I spent 35 min personally caring for this critically ill patient on the unit. The patient was critically ill due to new onset AF with RVR, acute combined HF. I performed the following services: direct hands-on care of the patient, interpretation of physiologic parameters, discussed the patient's care with other medical staff, reviewed imaging studies and reviewed test results, discussed plan of care with pt and family. IM-INTERNAL MEDICINE [facility] 2024-03-21 20:46:11 [facility] Hospitalist Admission H&P Date of Service: 03/21/2024 CHIEF COMPLAINT: Atrial fibrillation with rapid ventricular response HISTORY OF PRESENT ILLNESS Rick Mathur is a 63 year old female who presents with atrial fibrillation with rapid ventricular response. Patient presented to outside hospital in [facility] and found to have hypokalemia. However, she was noted to be in atrial fibrillation with rapid ventricular response after she was placed on telemetry. Patient was transferred to [facility] ICU for further evaluation. Recent echocardiogram with normal ejection fraction. Patient also has a history of recent hemorrhagic stroke. Patient was started on amiodarone drip. Patient was given Lovenox but at this time we will hold off on any further anticoagulation until seen by cardiology. At this time, patient will be admitted to the hospital to the intensive care unit for further treatment. Cardiology will be consulted. I had a in-depth conversation with patient's sister who tends to serve as her medical power of immigration attorney. She states that her sister has declined and would prefer to go to live at a senior care; preferably [facility]. They had been to [facility] and were not happy with the care she received at [facility]. They have also done paperwork to keep her I do not attempt resuscitation as patient's quality life after her hemorrhagic stroke has declined significantly. PAST MEDICAL HISTORY Past Medical History: Diagnosis Date Kbbflln-Buqcf-Sdujc atrophy CVA (cerebral vascular accident) 2022 HTN (hypertension) Rheumatoid arthritis Spina bifida PAST SURGICAL HISTORY Past Surgical History: Procedure Laterality Date LEG/ANKLE SURGERY PROC UNLISTED SPINE SURGERY ALLERGIES Allergies Allergen Reactions Darvocet A500 [Propoxyphene N-Acetaminophen] Nausea and/or Vomiting Darvon [Propoxyphene] Nausea and/or Vomiting MEDICATIONS Current home medication list reviewed: Current Discharge Medication List STOP taking these medications ergocalciferol, vitamin d2, (VITAMIN D2) 1,250 mcg (50,000 unit) capsule Comments: Reason for Stopping: omeprazole 20 mg capsule Comments: Reason for Stopping: furosemide 20 mg tablet Comments: Reason for Stopping: gabapentin 300 mg capsule Comments: Reason for Stopping: cmolqjopyf-kofnkzw-rhtcjswa (FIORINAL) 50-325-40 mg per capsule Comments: Reason for Stopping: HYDROcodone-acetaminophen 10-325 mg tablet Comments: Reason for Stopping: metoprolol succinate 25 mg CSpX Comments: Reason for Stopping: cyclobenzaprine 5 mg tablet Comments: Reason for Stopping: FAMILY HISTORY Family History Problem Relation Age of Onset Arthritis Mother Pulmonary Mother Heart Father Coronary Heart Disease Father SOCIAL HISTORY Social History Socioeconomic History Marital status: Tobacco Use Smoking status: Every Day Current packs/day: 0.50 Average packs/day: 0.5 packs/day for 50.0 years (25.0 ttl pk-yrs) Types: Cigarettes Passive exposure: Current Smokeless tobacco: Never Vaping Use Vaping status: Never Used Substance and Sexual Activity Alcohol use: Yes Comment: socially Drug use: Not Currently Social History Narrative Lives home alone 11/28/23: Patient was seen by [facility] to Home Consult Team and the below barriers to health were identified: None Identified Narrative: Home and Living Situation Patient states she lives at home alone on the first floor of an apartment complex in [place], [place] for approximately 6-7 years. She states her sister comes over every day and helps her with medications, cooking, and cleaning. States she has a walker and wheelchair at home and has no problem with moving around her home. States her sisters and neighbors regularly bring her food and she has never missed a meal. Relationship Status Patient states she is single. Has 2 sons, ages 45 and 42, who live in [place] and [facility]. States they are healthy and doing well. States she does not see her children and grandchildren as often as she would like, though she did not give a clear reason as to why this is. Transportation States she does not have a car and relies on her sisters to take her to appointments. She states her sisters have no problem transporting her and she has never missed an appointment due to lack of transportation. 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 She states she enjoys working but had to retire in due to pain in her feet. She states she is not currently looking for work. Social Network & Interests She states she has a good support system with her sister and neighbors. States her best friend lives next door and she regularly visits with her. States she can rely on her sisters and neighbors for any assistance. States she enjoys staying at home and watching TV. States she does not like to leave her home unless she has a doctor appointment. Education & Health Literacy States she attended school in [place] and completed her education up to elementary school (unable to give an exact grade). Patient was unable to list her medications, but knew that she took medications for hypertension, headaches, and pain. She knew that she's scheduled for medication in the morning and afternoon. States her sister comes in the morning and leaves around 3 pm and helps with her medications. States she is left alone after 3 pm and is unable to get a chair lift operator. Outpatient Primary Care States she is seen by Dr. Everett (unable to pronounce name) In [place]. States she is able to make her own follow up appointment and will follow up on her own as needed. Social Determinants of Health Financial Resource Strain: Low Risk (12/30/2023) Overall Financial Resource Strain (CARDIA) Difficulty of Paying Living Expenses: Not hard at all Food Insecurity: No Food Insecurity (12/30/2023) Hunger Vital Sign Worried About Running Out of Food in the Last Year: Never true Ran Out of Food in the Last Year: Never true Transportation Needs: No Transportation Needs (12/30/2023) PRAPARE - Transportation Lack of Transportation (Medical): No Lack of Transportation (Non-Medical): No Physical Activity: Inactive (12/30/2023) Exercise Vital Sign Days of Exercise per Week: 0 days Minutes of Exercise per Session: 0 min Social Connections: Unknown (12/30/2023) Social Connection and Isolation Panel [NHANES] Frequency of Communication with Friends and Family: More than three times a week Marital Status: Never Housing Stability: Low Risk (12/30/2023) Housing Stability Vital Sign Unable to Pay for Housing in the Last Year: No Number of Places Lived in the Last Year: 1 Unstable Housing in the Last Year: No REVIEW OF SYSTEMS 10 systems negative except per HPI PHYSICAL EXAMINATION Temp 36.2 ?C (97.1 ?F) (Tympanic) | Ht 1.448 m (4' 9") | Wt 44.5 kg (98 lb 1.6 oz) | BMI 21.23 kg/m? General: No acute distress HEENT: Normal oral mucosa, anicteric sclerae, NCAT Cardiovascular: Irregularly, irregular rate and rhythm Lungs: Symmetric expansion, clear bilaterally Abdomen: Soft, NTND Musculoskeletal: No synovitis, muscular atrophy Genitourinary: Deferred Skin: No rash, no skin lesions Extremities: No clubbing, no cyanosis, no lower extremity edema Neuro: AAOx3, no focal deficits patient with generalized weakness; patient with contractures of the upper extremities and lower extremities Psych: Flat affect LABS - reviewed pertinent labs as below: CBC BMP PT/INR WBC (10*3/?L) Date Value 01/06/2024 5.92 NA (mmol/L) Date Value 01/06/2024 135 No results found for: "PT" RBC (10*6/?L) Date Value 01/06/2024 4.35 K (mmol/L) Date Value 01/06/2024 3.9 INR (no units) Date Value 01/02/2024 0.9 PLT (10*3/?L) Date Value 01/06/2024 239 CALCIUM (mg/dL) Date Value 01/06/2024 9.0 HGB (g/dL) Date Value 01/06/2024 13.7 CL (mmol/L) Date Value 01/06/2024 99 aPTT HCT (%) Date Value 01/06/2024 41.9 BUN (mg/dL) Date Value 01/06/2024 19 No results found for: "APTTPAT" CREATININE (mg/dL) Date Value 01/06/2024 0.44 (L) IMAGING - reviewed, pertinent results as below: No results found for this visit on 03/21/24. ASSESSMENT: 1. Atrial fibrillation with rapid ventricular response 2. Hypokalemia 3. History of spontaneous pneumothorax status post pleurodesis 4. History of hypertension 5. History of rheumatoid arthritis 6. History of spina bifida PLAN: 1. Patient with atrial fibrillation with rapid ventricular response; continue with amiodarone drip. Hold anticoagulation at this time as patient with a history of hemorrhagic stroke and patient is not wanting aggressive treatment. Patient blood pressure has been on the low side. Patient's heart rate is still in the 130s. May consider given a dose of digoxin x 1. Plan is to get an echocardiogram. Cardiology consultation as well. 2. Hypokalemia; most likely related to diuretics 3. Hypomagnesemia; supplement magnesium 4. History of spontaneous pneumothorax with pleurodesis; 5. History of hypertension; continue with antihypertensives 6. History of rheumatoid arthritis; resume outpatient treatment 7. GI DVT prophylaxis DVT prophylaxis: enoxaparin Stress ulcer prophylaxis: pantoprazole Code status: DNAR Advanced Care Planning (Z71.89) Above assessment and plan discussed at length with patient, patient expressed full understanding. Questions and concerned addressed. Surrogate decision maker: NO Level of care expected after discharge: HOME Time spent: 3 minutes discussing the advanced care plan Smoking Cessation: (Z71.6) Tobacco user?: NO Patient will require inpatient stay of 2 midnights or more given high risk of morbidity and mortality. [place] [employer] UP MECHANIC was verified during stay Ana Pérez MD IM-INTERNAL MEDICINE STAFF [facility] 2023-12-30 00:00:55 Medicine Intensive Care History and Physical Date of Service: 12/29/2023 21:36 Intubation Day: N/A Hospital Day: 0 CHIEF COMPLAINT: PTX History of Present Illness Rick Mathur is a 63 year old female, with PMHx of hx of secondary spontaneous PTX s/p chest tube x2 (08/2023, 10/2023), documented COPD, documented diastolic CHF (no TTE on file) parietal lobe hematoma 2/2 fall (02/2023), Cgvuihy-Yrjwf-Auvkp, spina bifida, muscular dystrophy, RA, tobacco use, presenting as transfer from [facility] for right PTX with chest tube placed. Patient stated she was at her usual state of health when she developed gradual SOB over the last 3-4 weeks. She then developed worsening SOB for the last 3-4 days, and her daughter had called EMS. She was brought to [facility]. No vitals documented. K 2.9, BUN 27, Cr 0.51, Mg 1.6. Total CK 300. CT chest wo contrast showed complete collapse of right lung. Right chest tube placed. CXR showed right-sided PTX following chest tube placement with right mid to lower lung atelectasis/consolidation. Patient transferred to [facility] for higher level of care. She was last seen at [facility] on 11/25/23 for similar complaints of PTX s/p chest tube placement at OSH. She stated she felt well after discharge at the time. Upon arrival to MICU, patient was afebrile, HR 110, BP 134/98, RR 20. On 5 L NC, saturating > 92%. Patient admits to pain at right chest tube site. Denies chest pain, SOB, palpitations, nausea, vomiting, abdominal pain, fever, chills, dysuria. Patient stated she had been taking her diuretics, Lasix 20 mg daily. She does not recall having been told of diagnosis of COPD and is not on home oxygen. However, there is documentation of COPD diagnosis per chart review without PFTs on file. She never saw a Mush[employer] Growing Supervisor, although she was recommended to prior to dc on 10/2023. Admitted to chronic tobacco use since age 7, 1 pack per day, last use two days ago. Also admitted to history of chronic EtOH use since young age, multiple drinks per day. Has not drank in two years. February 2023: DC Summary Rick Mathur is 62 y.o. female with HTN, reported muscular dystrophy, spina bifida presenting with ICH either due to trauma vs stroke. She was seen by neuro ICU and repeat CT showed stable ICH. She also had MRI completed which show unchanged appearance of intraparenchymal hematoma in right parietal lobe which measuring about 4.8 cm. Seen by neurology and recommended no intervention needed as stable hematoma. Currently she is doing well and [facility] and recommended outpatient neurology follow-up 09/22: DC Summary Rick Mathur is a 62 y.o. female who presents on 09/21/2023 for hospital follow up. Patient is 62 y/o with Charcot Juvencio, spina bifida, HTN and COPD admitted [facility] 09/07/2023 for s/p fall resulting in right PTX, left radial/ulnar fx, UTI. Re: PTX chest tube placed and upon removal lung remained stable 11/25/23 : DC summary Rick Mathur is a 62 year old female with a PMH of charcot juvencio tooth, spina bifida, muscular dystrophy, RA, active smoker, who presents for pneumothorax s/p chest tube placement at OSH. Patient intermittently required supplemental oxygen but her shortness of breath gradually improved over the course of her hospitalization. Her pneumothorax was monitored with serial chest xrays each morning and pulmonology was consulted for chest tube management. The day prior to discharge, the chest tube was removed. Patient remained off supplemental oxygen the entirety of the day of discharge and she remained afebrile and hemodynamically to go home with follow up with pulmonology in 2-3 months for evaluation of her likely secondary spontaneous pneumothorax. PAST MEDICAL HISTORY has a past medical history of Fgxssiy-Osfyp-Bowkk atrophy, CVA (cerebral vascular accident), HTN (hypertension), Rheumatoid arthritis, and Spina bifida. PAST SURGICAL HISTORY has a past surgical history that includes spine surgery and leg/ankle surgery proc unlisted. FAMILY HISTORY family history includes Arthritis in her mother; Coronary Heart Disease in her father; Heart in her father; Pulmonary in her mother. SOCIAL HISTORY reports that she has been smoking cigarettes. She has a 25.00 pack-year smoking history. She has been exposed to tobacco smoke. She has never used smokeless tobacco. She reports current alcohol use. She reports that she does not currently use drugs. ALLERGIES Allergies Allergen Reactions Darvocet A500 [Propoxyphene N-Acetaminophen] Nausea and/or Vomiting Darvon [Propoxyphene] Nausea and/or Vomiting REVIEW OF SYSTEMS Positive and negative per HPI. PHYSICAL EXAMINATION Vitals: 12/29/232125 BP: (!) 134/98 Pulse: 110 Resp: 20 SpO2: 100% Weight: 41.7 kg (92 lb) Height: 1.448 m (4' 9") Constitutional: no acute distress Resp: Right chest tube in place; Diminished breath sounds on b/l posterior lung arndt. Cardio: tachycardic, regular rhythm; S1, S2 normal; no murmurs, rubs or gallops GI: soft; non-tender; non-distended; normoactive bowel sounds Extremities: no BLE edema Neuro: no focal deficits Labs (pertinent only)/Imaging: LABS: CBC WBC (10*3/?L) Date Value 11/29/2023 7.79 RBC (10*6/?L) Date Value 11/29/2023 4.07 PLT (10*3/?L) Date Value 11/29/2023 285 HGB (g/dL) Date Value 11/29/2023 12.6 HCT (%) Date Value 11/29/2023 38.4 There are no current results on file for these tests and/or test for 1 year. There are no current results on file for these tests and/or test for 1 year. BMP NA (mmol/L) Date Value 11/29/2023 135 K (mmol/L) Date Value 11/29/2023 4.2 CALCIUM (mg/dL) Date Value 11/29/2023 8.7 CL (mmol/L) Date Value 11/29/2023 104 BUN (mg/dL) Date Value 11/29/2023 14 CREATININE (mg/dL) Date Value 11/29/2023 0.31 (L) GLUCOSE (mg/dL) Date Value 11/29/2023 98 CO2 TOTAL (mmol/L) Date Value 11/29/2023 26 Hepatic Function Panel ALBUMIN (g/dL) Date Value 04/01/2021 3.2 (L) T PROTEIN (g/dL) Date Value 04/01/2021 6.9 TOTAL BILI (mg/dL) Date Value 04/01/2021 0.9 ALTv (U/L) Date Value 04/01/2021 39 (H) AST(SGOT) (U/L) Date Value 04/01/2021 63 (H) ALK PHOS (U/L) Date Value 04/01/2021 116 Coagulation Panel:There are no current results on file for these tests and/or test for 1 year. ABG:There are no current results on file for these tests and/or test for 1 year. DM & HLD Panel:There are no current results on file for these tests and/or test for 1 year. No final results containing an impression from the past 2 days were found. EKG (reviewed): HR 105 BPM; sinus tachycardia with premature supraventricular complexes with occasional PVCs; nonspecific T wave abnormality Microbiology: None Assessment/Plan: Rick Mathur is a 63 year old female admitted to the medical ICU with the following problems: Neuro/Psych Hx of parietal hematoma 2/2 fall (02/2023) Muscular dystrophy Gdgfcqi-Djiep-Ihqws Disease - Hold DVT ppx (contraindicated) - C/w home gabapentin 300 mg TID Respiratory Acute hypoxic respiratory failure 2/2 right-sided PTX s/p chest tube placement Hx of secondary spontaneous PTX s/p chest tube x 2 (08/2023, 10/2023) Documented COPD History of tobacco use Patient admitted as transfer from OSH to MICU for acute hypoxic respiratory failure 2/2 right-sided PTX s/p chest tube placement. Hx of 2 PTX s/p chest tube within last year. Currently saturating well on NC. Will continue to monitor respiratory status with CXR. May need CTSx referral on dc for possible pleurodesis considering multiple PTXs. - Admit to MICU - F/u admit labs - CXR - C/w right-sided chest tube - Pain control - Wean off O2 as tolerated - Consider CTSx referral on dc - [facility] Cardiovascular Documented diastolic CHF Tachycardia likely 2/2 acute respiratory failure vs prerenal ABEL HTN Patient euvolemic on exam, although breath sounds diminished diffusely. No TTE on file. Will get TTE during admission. Will assess labs during admission to assess restarting home Lasix as patient had low K and Mg prior to transfer. Patient also tachycardic, takes Toprol XL 25 mg TID. EKG showing sinus tachycardia with premature supraventricular complexes with occasional PVCs. Will start with 25 mg BID for now. - Hold home Lasix - F/u BMP, Mg - TTE - Toprol XL 25 mg BID FEN/GI Not active issue. ID Not active issue. Renal, fluid, and electrolytes: Prerenal ABEL 2/2 diuretic use Hypokalemia, monitoring Hypomagnesemia, monitoring Labs at OSH showing prerenal ABEL likely 2/2 diuretic use. K 2.9, Mg 1.6. Will check labs during this admission. - BMP, Mg, CBC Endo Not active issue. Heme/Onc/Other: Not active issue. ICU Issues: Lines: None [place]uley: Yes Nutrition: NPO VTE Prophylaxis: contraindicated GI Prophylaxis: N/A Prognosis: guarded Code Status: Full MPOA/surrogate decision maker: Son (no contact information on file) Ryan Antonio DO PGY-1, Internal Medicine Y OPERATOR Associated attestation - Enid Ferraro MD - 12/30/2023 5:41 PM BUGGY OPERATOR Attending History Supplement: I personally examined the patient on 12/30/[address] Antonio's resident note as written. I actively participated in the decision-making process. Please see the resident's note for additional details. Rick Mathur is a 63 year old female with spina bifida and neuromuscular disorder admitted with recurrent nontraumatic, spontaneous pneumothorax requiring supplemental oxygen and thoracostomy tube placement. Chest imaging reveals right pneumothorax that resolved with thoracostomy tube placement. Consulted thoracic surgery regarding surgical treatment of recurrent pneumothorax. To repeat chest CT. To decrease FiO2 to maintain SpO2 > 92 %. Updated family to plan of care. [facility] 2023-11-25 00:37:13 SURENDRA Staley Admit H&P PCP: Minh Ge Date of Service: 11/25/2023 CHIEF COMPLAINT: sob HISTORY OF PRESENT ILLNESS Rick Mathur is a 62 year old female with a PMH of charcot juvencio tooth, spina bifida, muscular dystrophy, RA, active smoker, who presents for pneumothorax s/p chest tube placement at OSH. Pt reports 3-4 days ago started having shortness of breath at home. Then finally sister called doctor and went to office visit yday. Found to be hypoxic at PCP, sent to ED. Satting 86% on RA w/ RR 28. Found to have pneumothorax at OSH ED, placed chest tube to suction. On 2L NC and after breathing tx, sat 94% w/ RR 15, HR 111. Reportedly repeat CXR showed improvement in PTX. Moderate R interstitial infiltrate, given dose of rocephin. Also found to be hypokalemic and hypomagnesemic, given 40mEq Kcl and 1g Mg. Transferred to [facility] d/t lack of pulm/CTS. Upon arrival, EMS reported pt took off NC. O2 sats were 82%. Pt denies fever, chills, cough other than her normal occasional cough. Past medical history: has a past medical history of Vmcipzw-Oakmc-Jykkr atrophy, CVA (cerebral vascular accident), HTN (hypertension), Rheumatoid arthritis, and Spina bifida. Past surgical history: has a past surgical history that includes spine surgery and leg/ankle surgery proc unlisted. Social history: reports that she has been smoking. She has never used smokeless tobacco. She reports current alcohol use. She reports that she does not currently use drugs. Family history: family history includes Arthritis in her mother; Coronary Heart Disease in her father; Heart in her father; Pulmonary in her mother. Allergies: Allergies Allergen Reactions Darvocet A500 [Propoxyphene N-Acetaminophen] Nausea and/or Vomiting Darvon [Propoxyphene] Nausea and/or Vomiting MEDICATIONS reviewed REVIEW OF SYSTEMS Review of Systems Constitutional: Negative for chills and fever. Respiratory: Positive for shortness of breath. Negative for cough. Cardiovascular: Positive for leg swelling. Negative for chest pain. Gastrointestinal: Negative for nausea and vomiting. Musculoskeletal: Recent fall (few months ago), broke L wrist, cast removed few weeks ago Skin: Positive for rash (redness on shins, reports been like this for soem time) and wound (chronic on legs, easily breaks skin). Neurological: Negative for dizziness, light-headedness and headaches. PHYSICAL EXAMINATION Vitals: 11/25/23 0000 11/25/23 0044 BP: 127/74 Pulse: 108 Resp: 18 Temp: 36.1 ?C (97 ?F) SpO2: 94% Weight: (!) 1 kg (2 lb 3.3 oz) 45.4 kg (100 lb 1.4 oz) Height: 1.448 m (4' 9.01") Physical Exam Constitutional: General: She is not in acute distress. Appearance: Normal appearance. She is ill-appearing. She is not toxic-appearing or diaphoretic. HENT: Head: Normocephalic and atraumatic. Eyes: General: No scleral icterus. Pulmonary: Effort: Pulmonary effort is normal. Breath sounds: Decreased air movement present. Examination of the left-middle field reveals rales. Examination of the right-lower field reveals rales. Examination of the left-lower field reveals rales. Wheezing (mild) and rales present. No rhonchi. Abdominal: General: Bowel sounds are normal. There is no distension. Palpations: Abdomen is soft. Tenderness: There is no abdominal tenderness. There is no guarding. Musculoskeletal: Right lower le+ Pitting Edema present. Left lower le+ Pitting Edema present. Comments: 1+/trace Skin: General: Skin is dry. Findings: Erythema (harrison bilateral) and lesion (shins) present. Comments: Warm shins, cool ankles Neurological: General: No focal deficit present. Mental Status: She is alert. LABS - reviewed pertinent labs as below: Reviewed OSH Covid negative D dimer 1494 ng/mL K 2.8 Cr 0.51 Mag 1.4 Alk phos 170 AST 67 ALT 46 NT Pro-BNP 740 CK 199 CK-MB 5.6 (high) Trop negative IMAGING - reviewed, pertinent results as below: No final results containing an impression from the past 30 days were found. EKG: Sinus tach, indeterminate axis, ?prior inferior infarct CHART REVIEW: pertinent information as below: ASSESSMENT/PLAN Rick Mathur is a 62 year old female with PMH as listed above, admitted to the hospital with: SOB Pneumothorax Hypokalemia Tachycardia Active Smoker Charcot Juvencio Tooth Spina bifida HTN CVA (~7 mo ago per pt) Unknown why patient suddenly developed PTX. May be d/t smoking hx (more likely) vs Mdxgfcz-oxavq-sobrn vs relatively recent fall. No fever, leukocytosis, or other systemic signs for infection. Bcx done at OSH. Will hold off on abx or cap tx since no cough. - Admit to [facility] - consulted pulm for chest tube management - CXR - upload OSH imaging (CXR, CTPE) - c/w home toprol, lasix, and pain regimen (gabapentin, flexeril, norco) - repeat troponin d/t CK-MB elevated at OSH - BMP, mag, replete as necessary Pain Not an active problemTylenol and [place] Prophylaxis: DVT- heparin Stress Ulcer: no indication for prophylaxis Code Status: addressed: Full Bowel Regimen: n/a Megha Mchugh MD, MPH Internal Medicine, PGY-3 Y OPERATOR Associated attestation - Crescencio Wilson MD - 11/25/2023 2:12 AM BUGGY OPERATOR I personally examined the patient on 11/25/[address] Mchugh's resident note as written. I actively participated in the decision-making process. Please see the resident's note for additional details. Crescencio Wilson MD Division of Internal Cryptologic Support SpecialistTempler Head [facility] 2023-09-14 22:10:00 Allison Peña MD: PERFORMEvent Display: History and PhysicalAuthored Date: [facility] [facility] History and PhysicalDate and Time of Service: 09/07/2023 06:03Referring Physician: Frank Garay DOTrauma Surgeon: Dr Kacie Keenan Chief Complaint: consult, fall History of Present Illness: Pt is a 62y/o F admitted on 09/06/2023 presented as a consult, fa 09/06, after losing balance. Fell on left side, - LOC, - hitting head. Presented to OSH, found to have R PTX and had L chest tube placed there. On presentation, hemodynamically normal. HR 100s, SBP 130s. Polytrauma. Past Medical History:muscle dystrophy, CHF, RA, COPD 60 pack yrs Past Surgical History:CS x 2, ankle surgery, back surgery Medications:lasix 20hydrocodone 10gabapentin 300metoprolol 25oomperazole 20cyclobenzaprine 40 Allergies: denies Social History:Alcohol deniesTobacco yesDrug use denies Review of Systems:Constitutional Symptoms: no feverEyes: no dischargeEars, Nose, Mouth, Throat: no rhinorrheaCardiovascular: no chest painRespiratory: on room airGastrointestinal: no abdominal painGenitourinary: no incontinenceMusculoskeletal: no stiffnessIntegumentary: (skin and/or breast):LUE woundNeurological: no weaknessPsychiatric: no anxietyHematologic/Lymphatic : see integumentaryAllergic/Immuno logic: no rashPhysical Examination:Vitals Tmp(F) Pulse BP RR SpO2 [id number] 03:16 ---- 104 138/65 29 95 4.0L/m11/08 02:21 98.4 104 142/96 29 97 4.0L/m1108 00:00 ---- 106 107/79 34 94 4.0L/m11 23:00 ---- 104 99/71 27 93 4.0L/m1107 22:23 ---- 104 125/75 26 94 4.0L/m 24 Hr Tmax: 98.4F (36.89c) at 09/07 02:21 Vital Signs are the last 5 in the past 48 hours. Neuro: GCS 15HEENT: EOCMNeck: Full ROMCV: HR 100sPulm: Normal work of breathing on 4L NCGI: Soft, ND NTGU: No foleyRectal: DeferredBack: no lacs, no tenderness on spineMSK: Gross motor function intactSkin: LUE woundExtremities: DP and radial pulses palpable bilaterally Labs:LabsABO/Rh: O POS (09/06/23 21:40:00)ACT (TEG) Rapid: 82 seconds Low (09/06/23 22:16:00)AGAP: 7.7 mEq/L Low (09/06/23 22:16:00)Angle Rapid: 78 degrees (09/06/23 22:16:00)Antibody Scrn: Negative (09/06/23 21:40:00)Basophils: 0.4 % (09/06/23 22:16:00)Basophils #: 0.1 K/CMM (09/06/23 22:16:00)BE Unruly: 3 mMol/L High (09/06/23 22:43:00)BUN: 16 mg/dL (09/06/23 22:16:00)Calcium Lvl: 8 mg/dL Low (09/06/23 22:16:00)Chloride Lvl: 108 mEq/L (09/06/23 22:16:00)CO2: 30 mEq/L (09/06/23 22:16:00)Creatinine Lvl: 0.47 mg/dL Low (09/06/23 22:16:00)eGFR: 106 mL/min/1.73m2 (09/06/23 22:16:00)Eosinophils: 0.1 % (09/06/23 22:16:00)Estimated % Lysis Rapid: 0 % (09/06/23 22:16:00)G-value Rapid: 12.5 K d/sc High (09/06/23 22:16:00)Glucose Lvl: 126 mg/dL High (09/06/23 22:16:00)HCO3 Unruly: 30 mMol/L High (09/06/23:43:00)Hct: 39.9 % (09/06/23 22:16:00)Hgb: 12.7 g/dL (09/06/23 22:16:00)INR: 1.01 (09/06/23 22:16:00)K-time Rapid: 1 minutes (09/06/23 22:16:00)Lactic Acid Lvl: 0.7 mMol/L (09/06/23 22:16:00)Lymphocytes: 5.1 % Low (09/06/23 22:16:00)Lymphocytes #: 0.7 K/CMM Low (09/06/23 22:16:00)Max Amplitude Rapid: 71 mm (09/06/23 22:16:00)MCH: 30.2 pg (09/06/23 22:16:00)MCHC: 31.9 g/dL Low (09/06/23 22:16:00)MCV: 94.6 fL (09/06/23 22:16:00)Monocytes: 6.4 % (09/06/23 22:16:00)Monocytes #: 0.9 K/CMM High (09/06/23 22:16:00)MPV: 9.6 fL (09/06/23 22:16:00)Neutrophils #: 12.3 K/CMM High (09/06/23 22:16:00)O2 Sat Unruly (calc): 84 % High (09/06/23 22:43:00)pCO2 Unruly: 59 mmHg High (09/06/23 22:43:00)pH Unruly: 7.32 (09/06/23 22:43:00)Platelet: 208 K/CMM (09/06/23 22:16:00)pO2 Unruly: 53 mmHg High (09/06/23 22:43:00)Potassium Lvl: 3.7 mEq/L (09/06/23 22:16:00)PT: 13.3 seconds (09/06/23 22:16:00)PTT: 23.2 seconds (09/06/23 22:16:00)R-time Rapid: 0.3 minutes Low (09/06/23 22:16:00)RBC: 4.22 M/CMM (09/06/23 22:16:00)RDW: 13.6 % (09/06/23 22:16:00)Segs: 88 % High (09/06/23 22:16:00)Sodium Lvl: 142 mEq/L (09/06/23 22:16:00)[place] Rapid: 0.2 minutes (09/06/23 22:16:00)Temp Unruly: 37 DegC (09/06/23 22:43:00)U Amph Scr: NEG (09/07/23 01:31:00)U Karen Scr: POS Abnormal (09/07/23 01:31:00)U Benzodiaz Scr: NEG (09/07/23 01:31:00)U Cannab Scr: NEG (09/07/23 01:31:00)U Cocaine Scr: NEG (09/07/23 01:31:00)U Opiate Scr: POS Abnormal (09/07/23 01:31:00)U Phencyclidine Scr: NEG (09/07/23 01:31:00)UA Ascorbic Acid: NEG (09/07/23 01:31:00)UA Bacteria: iFew (09/07/23 01:31:00)UA Bili: NEG (09/07/23 01:31:00)UA Blood: iSmall Abnormal (09/07/23 01:31:00)UA Color: cAmber Abnormal (09/07/23 01:31:00)UA Glucose: NEG (09/07/23 01:31:00)UA Hyal Cast: 8 /LPF High (09/07/23 01:31:00)UA Ketones: cTrace Abnormal (09/07/23 01:31:00)UA Leuk Est: iLRG Abnormal (09/07/23 01:31:00)UA Mucus: cFew (09/07/23 01:31:00)UA Nitrite: POS Abnormal (09/07/23 01:31:00)UA pH: 5 (09/07/23 01:31:00)UA Protein: NEG (09/07/23 01:31:00)UA RBC: 20 /HPF High (09/07/23 01:31:00)UA Spec Grav: 1.02 (09/07/23 01:31:00)UA Sq Epi: iMany Abnormal (09/07/23 01:31:00)UA Turbidity: 05 Abnormal (09/07/23 01:31:00)UA Urobilinogen: UA WBC: 64 /HPF High (09/07/23 01:31:00)UDS Note: See Note (09/07/23 01:31:00)WBC: 13.9 K/CMM High (09/06/23 22:16:00) Radiology:Chest 1view DX 09/07/23 04:58:49IMPRESSION:1. Continued improvement of the reexpansion of the right lung with diffuse pulmonary opacity within the right lung may represent pulmonary contusion, reexpansion pulmonary edema or aspiration.2. The right pneumothorax is no longer visualized.3. Otherwise no significant change from the prior examination. Signed By: Carlos Klein MDTrauma Spine Cervical wo contrast CT 09/07/23 03:29:43IMPRESSION:1. No acute fracture or malalignment of the cervical spine.2. Multilevel degenerative changes as detailed above with moderate canal stenosis greatest at C5-C6.3. 1.5 cm calcified left thyroid nodule. Recommend thyroid ultrasound to further evaluate. Signed By: Carlos Klein MD Trauma Brain wo contrast CT * Preliminary * 09/07/23 04:18:04IMPRESSION:1. No acute intracranial abnormality.2. Chronic brain parenchymal volume loss and microvascular ischemic changes. THIS IS A PRELIMINARY REPORT BY THE ON-CALL RESIDENT. CHANGES TO THIS PRELIMINARY REPORT MAY OCCUR IN AN ADDITIONAL PRELIMINARY OR FINALIZED VERSION. UT SECTION: Neuro Trauma Chest/Abd/Pelvis w IV contrast CT 09/07/23 04:21:00IMPRESSION:1. Small right pneumothorax with satisfactory positioning of a right lateral approach chest tube with the tip terminating at the right lung apex. No adjacent rib fractures are seen.2. Pulmonary opacity could represent reexpansion pulmonary edema, pulmonary contusion, pulmonary hemorrhage or atelectasis within the right lung with bilateral paraseptal and centrilobular emphysematous changes noted.3. Trace right pleural effusion with associated passive atelectasis.4. Punctate foci of fat stranding within the left gluteal soft tissues likely represent small contusions.5. No visceral organ injury within the abdomen or pelvis. Signed By: Carlos Klein MDElbow 3 views DX 09/07/23 01:32:52IMPRESSION: No acute abnormality. Signed By: Carlos Klein MD Hand 3 views DX 09/07/23 01:29:45IMPRESSION: Comminuted intra-articular fracture of the distal left radius with dorsal angulation. Comminuted fracture of the distal left ulnar diaphysis. Signed By: Carlos Klein MD Wrist Complete DX 09/07/23 04:56:27IMPRESSION: Interval placement of a cast/splint which limits evaluation of fine bony detail. The comminuted, intra-articular fracture of the distal left radius is again noted with improved anatomic alignment. Comminuted fracture of the distal left ulnar diaphysis is unchanged. Soft tissue swelling of the left wrist/distal forearm. Signed By: Carlos Klein MDAssessment and Plan:Pt is a 62y/o F admitted on 09/06/2023status post fall Injuries and plan as follows:Injuries:Small R PTX- R chest tube to continuous suction- order and FU AM CXR post ORS OR L ulnar and radial fx- ORS OR 09/07- NPO, mIVF MMPCDVT ppxFU AntiXa Dispo: floor Phuc Faye Erin Jinna Pamaran MDElectronically Signed: 09/07/23 06:10Kacie Keenan MDElectronically Signed: 09/08/23 13:11 [facility] 2023-09-14 22:10:00 Kacie Keenan MD: PERFORMEvent Display: History and PhysicalAuthored Date: [id number] Surgery Attending Addendum: I have seen and examined patient with resident team and concur with their findings and plan as noted below. Furthermore, pertinent findings have been discussed with project management consultant services. I have personally reviewed images and discussed the results with the in-house trauma radiologists. Pertinent Findings:- Primary survey unremarkable. Hemodynamically normal. GCS 15.- On exam, non-labored breathing, right chest tube in place to suction. Abdomen benign.- Labs largely unremarkable.- Imaging w/ right pneumothorax s/p tube thoracostomy, left radius/ulna fx. Diagnoses: - Acute pain following trauma: multi-modal pain regimen- Traumatic right pneumothorax: s/p tube thoracostomy at OSH. CT so suction, daily CXR, monitor output- Left radius/ulna fx: ORS consultation- Decreased functional mobility: PT/OT DOS: 09/07/23 Yonas Keenan MD, MS MSO# [id number] Kacie Keenan MDElectronically Signed: 09/08/23 13:14 [facility] Procedure Notes Date/Time Note Provider Source 2024-03-30 15:08:10 PROCEDURE NOTE Date of Procedure: 03/30/2024 Pre Operative Diagnosis: Recurrent right pneumothorax Post Operative Diagnosis: Recurrent right pneumothorax Title of Operation: Chemical pleurodesis Time out: patient identified verbally and using MRN on wrist band Discussed risks and benefits with patient who agreed to proceed with the procedure. Procedure in Detail: Thee patient was positioned supine then rotated to her left. 4g talc powder was mixed with 40cc of normal saline then administered through the chest tube. The stopcock was turned off to the patient. Plan: Unclamp chest tube (open stopcock) in 3 hours at 1800. Ondina Damico MD General Surgery PGY-3 Associated attestation - Phyllis Quiroz MD - 03/30/2024 7:28 PM CDT Agree. SL SARAH-SURGERY [facility] 2024-03-27 18:10:42 Procedure(s): INTUBATION INTUBATION PROCEDURE NOTE - PULMONARY/CRITICAL CARE Date of Service: 03/27/2024 18:14 Indication/Diagnosis:respirato ry failure Endotracheal Intubation Patient positioned 100% oxygen by mask. Medications given: Etomidate, Rocuronium. Topicalized with local anesthetic. A 6.5 mm tube was selected. A stylet was used. A # S3 laryngoscope blade was used. The vocal cords were visualized, and the endotracheal tube (ETT) was advanced successfully. There was visual confirmation that the ETT advanced between the cords. Good equal breath sounds were auscultated bilaterally. End tidal CO2 monitoring was used to confirm placement of ETT as well as direct visulization using the bronchoscope to confirm placement in the airway and above the zackary. A total of 1 attempts were made. 03/27/2024 18:14 Magdaleno Wick MD, MSc Department of Internal Medicine, PGY3 Associated attestation - Donny Lopez DO - 03/29/2024 12:19 PM CDT IM-INTERNAL MEDICINE [facility] 2024-03-27 12:50:49 CHEST TUBE PLACEMENT - PULMONARY/CRITICAL CARE Date of Service: 03/27/2024 Indication/Diagnosis: Right Pneumothorax Consent source: patient family at bedside Consent type: elective procedure and indications/complications discussed with Patient daughter; written consent obtained and placed in the chart PreProcedure Verification Completed yes, Site Marking Completed yes, Time Out Completed yes. 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 Ultrasound of the right mid axillary area revealed no lung sliding. The site was marked and the area was prepped and draped in the usual sterile fashion. 5 cc's of 1 % lidocaine was administered in the same area localized by ultrasound for local anesthesia. The skin overlying the marked space was incised into the subcutaneous tissue. A 14Fr Marek catheter was inserted and secured in place. The patient tolerated the procedure well without complications. The chest tube is attached to a pleuraVac on water seal. Pulmonary consult to follow. Dr. Terry was present throughout the entire procedure. Post procedure chest xray ordered. Please leave chest tube to low continuous wall suction currently. Pulmonary consult to follow. Bobby Pham DO, PGY4 Fellow Pulmonary & Critical Care Medicine Associated attestation - Stevie Terry MD - 03/27/2024 6:02 PM CDT I was present for and immediately available for assistance with the entire procedure. [facility] 2024-03-27 10:30:00 Vascular Access Services A bedside timeout was conducted before procedure with Aneta Montoya RN. An ultrasound guided, 20 ga., 10 cm. MIDLINE was then placed in the left basilic vein, in 1 attempt(s). Local anesthetic was not used. Labs were not obtained. REF#: [id number] Lot #: [id number] Exp: 04/29/2025 Of note, the administration of irritant/vesicant medications through a midline intravenous access is strongly discouraged. Rohit Lugo RN [facility] 2024-03-23 16:11:45 Procedure(s): RHC ONLY; LEFT HEART CATH AND CORONARY ANGIOGRAPHYLEFT HEART CATH AND CORONARY ANGIOGRAPHY Left Heart Cath/Coronary Angiography Date of Service: 03/23/2024 Indication/Diagnosis: 63 year old female with a PMH of secondary spontaneous PTX s/p chest tube x3 (08/2023, 10/2023, 12/2023), COPD, diastolic CHF, parietal lobe hematoma 2/2 fall (02/2023), Hqbfmmd-Xnenf-Brozi, spina bifida, muscular dystrophy, RA, tobacco use, hx of intracranial bleed who is transferred from [facility] with tachycardia concerning for atrial fibrillation. She initially presented to outside hospital [facility] ER where she was found to have hypokalemia and afib RVR before being transferred to [facility]. Workup indciated new HFrEF (10-15%) hence [facility] and [facility] requested Fellow: Dr Hussein and Jaquan Time out completed: yes Aseptic technique: Chlorprep Local Anesthesia: 1% lidocaine without epinephrine Sedation: fentanyl 50 mcg Access site: right radial artery and right internal jugular Closure Method: TR Band Complications: none Procedure Details: RHC 7 Fr R IJ/RFV TD swan Manual compression LHC 5/6 Fr right radial Artery 5 Fr TIG to LV (LVEDP and pullback across aortic valve), LM, RCA TR band. Post-Procedure Sedation Addendum Immediately prior to start of sedation, the patient was evaluated and there was no change from the pre-procedure evaluation. I was present and directed medical care. The patient underwent moderate sedation for the procedure. The medications administered were recorded in the MAR; oxygenation, ventilation and circulation were monitored continuously and were recorded in the EMR. I evaluated the patient after the procedure. The patient was evaluated immediately as recovering from sedation. Complications: none Findings: Right Heart Catheterization: RA 3 mmHg RV 29/7 mmHg (9) PA 39/16 mmHg (23) PCWP 14 mmHg TPG 9 mmHg PVR 2.5 WOOD SVC sat 67% PA sat 61% CO/CI (Siena): 3.69/2.61 CO/CI (Thermodilution): 3.18/2.25 Coronary dominance: Right Left main: short LM LAD: LAD type 4 with 50% tubular mid LAD stenosis D1: large in calibre and MLI LCX: MLI OM1: very small, patent OM2: MLI RCA: MLI PDA: MLI PLB: Small, MLI LVEDP: 10mmHg Impression: Mid-LAD 50% stenosis Normal left and right sided filling pressures Mild pulmonary hypertension Mildly reduced CO/CI (normal by Siena) Plan: Moderate mLAD stenosis unlikely to explain patient's severe HFrEF; may be secondary to tachycardiac induced cardiomyopathy in setting of MAT vs Afib GDMT for HFrEF Quaker of NSR Aggressive medical Rx Findings and plan discussed with pt and primary team I performed this procedure and supervised the fellow. I was present for the entire duration of the procedure. Kalen Hussein MD Emergency Medcl Emt, PGY-5 Pager: [phone] 03/23/2024 16:34 Associated attestation - Francois Jama MD - 03/23/2024 4:47 PM CDT I performed this procedure and supervised the fellow. I was present for the entire duration of the procedure. I made edits to the fellow report to reflect my interpretation. Images were taken at unusual angles to compensate for her rotated position due to spinal deformity. [facility] 2024-03-22 14:39:05 Procedure(s): CENTRAL LINE Central Line Procedure Note Date of Service: 03/22/2024 Faculty: Dr. Garcia Procedure performed by: Dusty Lopez MD Indication/Diagnosis: pressors Consent: Sister consented Patient location: ICU Sterile technique was used : A cap and mask were donned, hand hygiene was performed and sterile gown and gloves were donned. The skin was prepped with 2% chlorhexidine and the solution was allowed to dry. A full body fenestrated drape was placed over the patient without contaminating the drape during placement. Anesthesia:local: 1% lidocaine Instrument(s) type: triple lumen catheter Ultrasound utilized: Yes Number of sites accessed? 1 Procedure site first accessed: right internal jugular vein Number of needle passes at first site 1 Sterile dressing: Tegaderm w CHX Narrative: Patient was prepped and draped in the usual sterile fashion with chlorhexidine A central line was introduced with the Seldinger technique into the right internal jugular vein after one attempt. Guide wire was threaded without difficulty. The catheter was then placed over the guide wire, the guide wire was removed, and the catheter was sutured into place. Good flow was noted from the port(s) and the catheter flushed easily. Blood loss was minimal. Complications: none Chest x-ray: cleared Dusty Lopez MD PGY-2 General Surgery Associated attestation - Yissel Garcia MD - 03/23/2024 8:20 AM CDT I was present for and supervised the entire procedure(s). Yissel Garcia MD [facility] 2024-01-03 11:37:00 PREOPERATIVE DIAGNOSIS: Right recurrent primary spontaneous pneumothorax. POSTOPERATIVE DIAGNOSIS: Right recurrent primary spontaneous pneumothorax. PROCEDURE: Chemical pleurodesis IDENTIFICATION: Rick Mathur is a 63 year old female who presents with right recurrent primary spontaneous pneumothorax. We discussed with the patient management options. We discussed risks, benefits, and alternatives of the surgical debridement. We discussed risks of infection, bleeding, heart attack, stroke, , and others. Rick Mathur decided to proceed with procedure DESCRIPTION OF PROCEDURE After informed consent, patient was positioned supine at bedside. Lidocaine 2% 20cc was administered through the chest tube and clamped for 30 minutes. Doxycycline 500mg mixed with 20cc of saline was then administered through the chest tube and clamped for 4 hours. She was instructed to move around during these 4 hours. After 4h, clamp was removed and drain was placed to suction -20 mmHg. Patient tolerated procedure well. Carol Mathis MD PGY-1 Department of Surgery Y OPERATOR Associated attestation - Angeles Workman MD - 01/05/2024 7:10 AM BUGGY OPERATOR Agree [facility] 2023-12-31 22:27:58 PREOPERATIVE DIAGNOSIS: Right recurrent primary spontaneous pneumothorax. POSTOPERATIVE DIAGNOSIS: Right recurrent primary spontaneous pneumothorax. PROCEDURE: Chemical pleurodesis IDENTIFICATION: Rick Mathur is a 63 year old female who presents with right recurrent primary spontaneous pneumothorax. We discussed with the patient management options. We discussed risks, benefits, and alternatives of the surgical debridement. We discussed risks of infection, bleeding, heart attack, stroke, , and others. Rick Mathur decided to proceed with procedure DESCRIPTION OF PROCEDURE After informed consent, patient was positioned supine at bedside. Lidocaine 2% 20cc was administered through the chest tube and clamped for 30 minutes. Doxycycline 500mg mixed with 20cc of saline was then administered through the chest tube and clamped for 4 hours. She was instructed to move around during these 4 hours. After 4h, clamp was removed and drain was placed to suction -20 mmHg. Patient tolerated procedure well. Carol Mathis MD PGY-1 Department of Surgery Y OPERATOR Associated attestation - Angeles Workman MD - 01/01/2024 9:41 PM BUGGY OPERATOR agree [facility] 2023-11-27 17:26:38 PROCEDURE: Chest Tube Removal FACULTY: Dr. Macario FELLOW: Teresa Barney MD PREOPERATIVE DIAGNOSIS: Spontaneous PTX DESCRIPTION OF PROCEDURE: Chest tube dressing was removed and suture was removed. Pt asked to hum and hold at exhalation as chest tube was removed. Chest tube was removed with minimal bleeding <1cc and new dressing was applied. Dr. Macario was present throughout the entire procedure. Patient was instructed NOT to immerse the wound under water for at least 5 days. COMPLICATIONS: None IMPRESSION: Successful removal of chest tube Bobby Pham DO, PGY-4 Pulmonary & Critical Care Fellow Y OPERATOR Associated attestation - Rico Macario MD - 11/27/2023 6:31 PM BUGGY OPERATOR Agree with indication for procedure. I was not personally present but available, if needed, at the time of this procedure. IM-PULMONARY DISEASE [facility] Notes Date/Time Note Provider Source 2025-06-04 09:20:48 [facility] to [facility] Allison Sandoval RN [facility] 2025-06-04 09:10:45 Form filled ready to fax back. T [facility] 2025-06-04 08:49:16 Form printed in the [facility] and given to Dr. Doshi for completion. T [facility] 2025-06-03 09:05:32 Received cardiac clearance form from Center placed in providers folder and uploaded to chart under media for review. Magalis Melara [facility] 2025-03-04 09:50:57 Patient calling back to check status of GI form received and uploaded on 02/08, printed and placed in providers folder for review. Please call patient to [phone] when form is ready. Magalis Melara [facility] 2025-02-08 16:05:31 Received forms from [facility] and they were scanned into the pt chart and a copy placed into the providers box for review. Mukesh Floyd [facility] 2024-04-27 11:59:39 Orders faxed to [facility] Alexis Mclean RN [facility] 2024-04-27 09:39:31 See previous telephone encounter Alexis Mclean RN [facility] 2024-04-27 09:37:28 Called Yissel Moore to notify of orders being rec'd by Dr. Raymundo. No answer. LMOR to return call to clinic. Called [facility] to notify. No answer. Alexis Mclean RN [facility] 2024-04-27 08:14:08 Yeah that's ok She is uncomfortable with it and she is having skin ulcers IM-CLINICAL CARDIAC ELECTROPHYSIOLOGY STAFF [facility] 2024-04-25 16:30:44 [facility] is calling requesting an order from Dr. Raymundo stating pt is okay to take life vest off. States verbal order is okay. Germania Molina [facility] 2024-04-25 12:58:10 Rick Mathur is a 63 year old female Pt sister returning call for life jacket status. Please advise Agatha Reyna [facility] 2024-04-25 11:10:25 Copied from [facility] #[id number]. Topic: Clinical - Medical Advice >> Apr 25, 2024 11:08 AM Patient Clinical Athletic Instructor wrote: Rick Mathur is a 63 year old female. Pt calling requesting referral from provider to take life jacket off. Pt needs this sent to [facility]. Please advise. David Shelton [facility] 2024-04-09 11:03:55 TRANSITIONAL CARE MANAGEMENT ASSESSMENT 04/09/2024 Rick Mathur [id number] Rick Mathur is a 63 year old /White female was admitted on 03/21/[address] She was discharged on 04/06/24 with discharge disposition of HR- Routine Discharge. Admitting Physician: Francisco Willis Discharge Diagnosis: FINAL DIAGNOSIS: (the reason, after study, for admitting the patient to the hospital) Spontaneous Pneumothorax s/p chest tube placement and removal talc pleurodesis with newly reduced HFrEF (EF 15-20%) No linked episodes TCM Khi-anuw-ob-face outreach documentation: Discharge Assessment Chart Assessed: 04/09/24 Chart Reviewed - Post Discharge Call Deferred due to Change in Discharge Status.: Discharged to SNF ([facility], [address] [place] [id number] () [phone] (F) [phone]) TCM Outreach Completed: 04/09/24 Future Appointments: Benny Emanuel RN [facility] 2024-04-06 16:07:50 Problem: Falls, Risk of Goal: Absence of falls Outcome: Progressing as expected Problem: Pain Goal: Control of pain at or below patient's documented comfort goal Outcome: Progressing as expected Goal: Reduction in pain sensation Outcome: Progressing as expected Problem: Venous Thromboembolism, (actual or risk of) Goal: Absence of venous thromboembolism (Risk) Outcome: Progressing as expected Goal: Prevent further complications associated with VTE diagnosis (Actual) Outcome: Progressing as expected Problem: Infection Risk Goal: Absence of infection Outcome: Progressing as expected Problem: Skin integrity Impaired (Risk or Actual) Goal: Prevention of new skin breakdown Outcome: Progressing as expected Problem: Bleeding, Risk of Goal: Absence of impaired coagulation signs and symptoms Outcome: Progressing as expected Goal: Absence of active bleeding Outcome: Progressing as expected Problem: Discharge Planning Goal: Adequate for discharge Outcome: Progressing as expected Goal: Effective communication Outcome: Progressing as expected Problem: Tissue Perfusion - Altered, Risk of Goal: Hemodynamically stable Outcome: Progressing as expected Problem: Fluid Volume - Imbalanced Goal: Absence of imbalanced fluid volume signs and symptoms Outcome: Progressing as expected Problem: Respiratory Function - Impaired Goal: Adequate oxygenation Outcome: Progressing as expected Goal: Adequate work of breathing Outcome: Progressing as expected Problem: Respiratory Function - Impaired Goal: Able to cough effectively Outcome: Progressing as expected Goal: Adequate oxygenation Outcome: Progressing as expected Goal: Adequate work of breathing Outcome: Progressing as expected Goal: Patent airway Outcome: Progressing as expected Salvador Reyna RN [facility] 2024-04-05 23:12:43 A patient w/ normal wob. Y SPARKS [facility] 2024-04-05 22:25:08 Problem: Falls, Risk of Goal: Absence of falls Outcome: Progressing as expected Problem: Pain Goal: Control of pain at or below patient's documented comfort goal Outcome: Progressing as expected Goal: Reduction in pain sensation Outcome: Progressing as expected Problem: Venous Thromboembolism, (actual or risk of) Goal: Absence of venous thromboembolism (Risk) Outcome: Progressing as expected Goal: Prevent further complications associated with VTE diagnosis (Actual) Outcome: Progressing as expected Problem: Infection Risk Goal: Absence of infection Outcome: Progressing as expected Problem: Skin integrity Impaired (Risk or Actual) Goal: Prevention of new skin breakdown Outcome: Progressing as expected Problem: Bleeding, Risk of Goal: Absence of impaired coagulation signs and symptoms Outcome: Progressing as expected Goal: Absence of active bleeding Outcome: Progressing as expected Problem: Discharge Planning Goal: Adequate for discharge Outcome: Progressing as expected Goal: Effective communication Outcome: Progressing as expected Problem: Fluid Volume - Imbalanced Goal: Absence of imbalanced fluid volume signs and symptoms Outcome: Progressing as expected Problem: Tissue Perfusion - Altered, Risk of Goal: Hemodynamically stable Outcome: Progressing as expected Problem: Respiratory Function - Impaired Goal: Adequate oxygenation Outcome: Progressing as expected Goal: Adequate work of breathing Outcome: Progressing as expected Problem: Respiratory Function - Impaired Goal: Able to cough effectively Outcome: Progressing as expected Goal: Adequate oxygenation Outcome: Progressing as expected Goal: Adequate work of breathing Outcome: Progressing as expected Goal: Patent airway Outcome: Progressing as expected Aparna Cooper RN [facility] 2024-04-05 10:58:42 Problem: Falls, Risk of Goal: Absence of falls Outcome: Progressing as expected Problem: Pain Goal: Control of pain at or below patient's documented comfort goal Outcome: Progressing as expected Goal: Reduction in pain sensation Outcome: Progressing as expected Problem: Venous Thromboembolism, (actual or risk of) Goal: Absence of venous thromboembolism (Risk) Outcome: Progressing as expected Goal: Prevent further complications associated with VTE diagnosis (Actual) Outcome: Progressing as expected Problem: Infection Risk Goal: Absence of infection Outcome: Progressing as expected Problem: Skin integrity Impaired (Risk or Actual) Goal: Prevention of new skin breakdown Outcome: Progressing as expected Problem: Bleeding, Risk of Goal: Absence of impaired coagulation signs and symptoms Outcome: Progressing as expected Goal: Absence of active bleeding Outcome: Progressing as expected Problem: Discharge Planning Goal: Adequate for discharge Outcome: Progressing as expected Goal: Effective communication Outcome: Progressing as expected Problem: Tissue Perfusion - Altered, Risk of Goal: Hemodynamically stable Outcome: Progressing as expected Problem: Fluid Volume - Imbalanced Goal: Absence of imbalanced fluid volume signs and symptoms Problem: Respiratory Function - Impaired Goal: Able to cough effectively Outcome: Progressing as expected Goal: Adequate oxygenation Outcome: Progressing as expected Goal: Adequate work of breathing Outcome: Progressing as expected Goal: Patent airway Outcome: Progressing as expected Devon Rivera RN [facility] 2024-04-04 19:44:31 Problem: Falls, Risk of Goal: Absence of falls Outcome: Progressing as expected Problem: Pain Goal: Control of pain at or below patient's documented comfort goal Outcome: Progressing as expected Goal: Reduction in pain sensation Outcome: Progressing as expected Problem: Venous Thromboembolism, (actual or risk of) Goal: Absence of venous thromboembolism (Risk) Outcome: Progressing as expected Goal: Prevent further complications associated with VTE diagnosis (Actual) Outcome: Progressing as expected Problem: Infection Risk Goal: Absence of infection Outcome: Progressing as expected Problem: Skin integrity Impaired (Risk or Actual) Goal: Prevention of new skin breakdown Outcome: Progressing as expected Problem: Bleeding, Risk of Goal: Absence of impaired coagulation signs and symptoms Outcome: Progressing as expected Goal: Absence of active bleeding Outcome: Progressing as expected Problem: Discharge Planning Goal: Adequate for discharge Outcome: Progressing as expected Goal: Effective communication Outcome: Progressing as expected Problem: Fluid Volume - Imbalanced Goal: Absence of imbalanced fluid volume signs and symptoms Outcome: Progressing as expected Problem: Tissue Perfusion - Altered, Risk of Goal: Hemodynamically stable Outcome: Progressing as expected Problem: Respiratory Function - Impaired Goal: Adequate oxygenation Outcome: Progressing as expected Goal: Adequate work of breathing Outcome: Progressing as expected Marguerite Carter RN [facility] 2024-04-04 07:40:16 Problem: Falls, Risk of Goal: Absence of falls Outcome: Progressing as expected Problem: Pain Goal: Control of pain at or below patient's documented comfort goal Outcome: Progressing as expected Goal: Reduction in pain sensation Outcome: Progressing as expected Problem: Venous Thromboembolism, (actual or risk of) Goal: Absence of venous thromboembolism (Risk) Outcome: Progressing as expected Goal: Prevent further complications associated with VTE diagnosis (Actual) Outcome: Progressing as expected Problem: Infection Risk Goal: Absence of infection Outcome: Progressing as expected Problem: Skin integrity Impaired (Risk or Actual) Goal: Prevention of new skin breakdown Outcome: Progressing as expected Problem: Bleeding, Risk of Goal: Absence of impaired coagulation signs and symptoms Outcome: Progressing as expected Goal: Absence of active bleeding Outcome: Progressing as expected Problem: Discharge Planning Goal: Adequate for discharge Outcome: Progressing as expected Goal: Effective communication Outcome: Progressing as expected Problem: Fluid Volume - Imbalanced Goal: Absence of imbalanced fluid volume signs and symptoms Outcome: Progressing as expected Problem: Tissue Perfusion - Altered, Risk of Goal: Hemodynamically stable Outcome: Progressing as expected Problem: Respiratory Function - Impaired Goal: Adequate oxygenation Outcome: Progressing as expected Goal: Adequate work of breathing Outcome: Progressing as expected Problem: Respiratory Function - Impaired Goal: Able to cough effectively Outcome: Progressing as expected Goal: Adequate oxygenation Outcome: Progressing as expected Goal: Adequate work of breathing Outcome: Progressing as expected Goal: Patent airway Outcome: Progressing as expected Ryann Caal RN [facility] 2024-04-03 19:21:27 Problem: Falls, Risk of Goal: Absence of falls Outcome: Progressing as expected Problem: Pain Goal: Control of pain at or below patient's documented comfort goal Outcome: Progressing as expected Goal: Reduction in pain sensation Outcome: Progressing as expected Problem: Venous Thromboembolism, (actual or risk of) Goal: Absence of venous thromboembolism (Risk) Outcome: Progressing as expected Goal: Prevent further complications associated with VTE diagnosis (Actual) Outcome: Progressing as expected Problem: Infection Risk Goal: Absence of infection Outcome: Progressing as expected Problem: Skin integrity Impaired (Risk or Actual) Goal: Prevention of new skin breakdown Outcome: Progressing as expected Problem: Bleeding, Risk of Goal: Absence of impaired coagulation signs and symptoms Outcome: Progressing as expected Goal: Absence of active bleeding Outcome: Progressing as expected Problem: Discharge Planning Goal: Adequate for discharge Outcome: Progressing as expected Goal: Effective communication Outcome: Progressing as expected Problem: Fluid Volume - Imbalanced Goal: Absence of imbalanced fluid volume signs and symptoms Outcome: Progressing as expected Problem: Tissue Perfusion - Altered, Risk of Goal: Hemodynamically stable Outcome: Progressing as expected Problem: Respiratory Function - Impaired Goal: Adequate oxygenation Outcome: Progressing as expected Goal: Adequate work of breathing Outcome: Progressing as expected Problem: Respiratory Function - Impaired Goal: Able to cough effectively Outcome: Progressing as expected Goal: Adequate oxygenation Outcome: Progressing as expected Goal: Adequate work of breathing Outcome: Progressing as expected Goal: Patent airway Outcome: Progressing as expected Max Mosley RN [facility] 2024-04-03 10:58:49 PENDING MEDICAL CLEARANCE Care Management Discharge Disposition Note (DCDN) 5-2-1 Interventions: Disease specific education, Intensive medication reconciliation/management, Teach back, Clear discharge plan, Follow-up phone calls, Follow-up appointments 5-2-1 Providers: Physician, Optical Designer/Camera Operator, Nurse 5-2-1 Patient Capacity Improvements: Avoidance of adverse events/readmission, Transportation arrangements Discussed with patient/patient s family involved in decision making: Patient or family caregiver understands, and agrees with discharge plan Patient's family or support contact: Soledad Moore sister [phone] and Maulik Mathur/pt son/[phone] Discharge Plan for ongoing care and services: Assisted Facility (SNF) Discharge Location: [facility] [facility] location: [address] [address] () [phone] ([phone] MOT: Accepting physician: Dr. Villalpando Accepting grants administrator: Mer Rowell RN Report: [phone] Transportation: Ambulance Prior authorization obtained for ambulance:No (not needed) Authorization number: CPT code: A0425 - Ground mileage per statute mile Discharge Medications Will the patient be able to obtain his medications? Yes Does the patient have transportation to to obtain the prescription medications? Yes Expected discharge date: 04/03/24 Time: 1300 Name of RN informed of discharge: Ryann Caal Additional Information: Pt stating she does not want to go to [place] however, pt is NOT A&Ox4. Pt's next of kin are agreeable to d/c plan and stated that since pt told them prior to admission she wanted placement, they have cleaned out pt home and pt no longer has a a home. Pt family stated there is nobody that can care for pt at home and pt does not have HHC anymore. Please reference rubin GOMEZ note for further details. JOSE/JASON Name & Contact number: Yissel Ingram LMSW, [facility] Care Management-Social Work [email or web address] Care Management Weekend The following information has been provided to the facility noted above: reason for the patient discharge or transfer; patient s physical and psychosocial status; summary of care, treatment, services provided to patient; and the patient progress toward goals. [facility] 2024-04-03 07:23:26 Problem: Falls, Risk of Goal: Absence of falls Outcome: Progressing as expected Problem: Pain Goal: Control of pain at or below patient's documented comfort goal Outcome: Progressing as expected Goal: Reduction in pain sensation Outcome: Progressing as expected Problem: Venous Thromboembolism, (actual or risk of) Goal: Absence of venous thromboembolism (Risk) Outcome: Progressing as expected Goal: Prevent further complications associated with VTE diagnosis (Actual) Outcome: Progressing as expected Problem: Infection Risk Goal: Absence of infection Outcome: Progressing as expected Problem: Skin integrity Impaired (Risk or Actual) Goal: Prevention of new skin breakdown Outcome: Progressing as expected Problem: Bleeding, Risk of Goal: Absence of impaired coagulation signs and symptoms Outcome: Progressing as expected Goal: Absence of active bleeding Outcome: Progressing as expected Problem: Discharge Planning Goal: Adequate for discharge Outcome: Progressing as expected Goal: Effective communication Outcome: Progressing as expected Problem: Fluid Volume - Imbalanced Goal: Absence of imbalanced fluid volume signs and symptoms Outcome: Progressing as expected Problem: Tissue Perfusion - Altered, Risk of Goal: Hemodynamically stable Outcome: Progressing as expected Problem: Respiratory Function - Impaired Goal: Adequate oxygenation Outcome: Progressing as expected Goal: Adequate work of breathing Outcome: Progressing as expected Problem: Respiratory Function - Impaired Goal: Able to cough effectively Outcome: Progressing as expected Goal: Adequate oxygenation Outcome: Progressing as expected Goal: Adequate work of breathing Outcome: Progressing as expected Goal: Patent airway Outcome: Progressing as expected [facility] 2024-04-02 20:11:56 A patient w/ normal wob. [facility] 2024-04-02 19:56:05 Problem: Falls, Risk of Goal: Absence of falls Outcome: Progressing as expected Problem: Pain Goal: Control of pain at or below patient's documented comfort goal Outcome: Progressing as expected Goal: Reduction in pain sensation Outcome: Progressing as expected Problem: Venous Thromboembolism, (actual or risk of) Goal: Absence of venous thromboembolism (Risk) Outcome: Progressing as expected Goal: Prevent further complications associated with VTE diagnosis (Actual) Outcome: Progressing as expected Problem: Skin integrity Impaired (Risk or Actual) Goal: Prevention of new skin breakdown Outcome: Progressing as expected Problem: Bleeding, Risk of Goal: Absence of impaired coagulation signs and symptoms Outcome: Progressing as expected Goal: Absence of active bleeding Outcome: Progressing as expected Problem: Discharge Planning Goal: Adequate for discharge Outcome: Progressing as expected Goal: Effective communication Outcome: Progressing as expected Problem: Tissue Perfusion - Altered, Risk of Goal: Hemodynamically stable Outcome: Progressing as expected Problem: Fluid Volume - Imbalanced Goal: Absence of imbalanced fluid volume signs and symptoms Outcome: Progressing as expected Problem: Respiratory Function - Impaired Goal: Adequate oxygenation Outcome: Progressing as expected Goal: Adequate work of breathing Outcome: Progressing as expected [facility] 2024-04-02 19:38:25 Problem: Falls, Risk of Goal: Absence of falls Outcome: Progressing as expected Problem: Pain Goal: Control of pain at or below patient's documented comfort goal Outcome: Progressing as expected Goal: Reduction in pain sensation Outcome: Progressing as expected Problem: Venous Thromboembolism, (actual or risk of) Goal: Absence of venous thromboembolism (Risk) Outcome: Progressing as expected Goal: Prevent further complications associated with VTE diagnosis (Actual) Outcome: Progressing as expected Problem: Infection Risk Goal: Absence of infection Outcome: Progressing as expected Problem: Skin integrity Impaired (Risk or Actual) Goal: Prevention of new skin breakdown Outcome: Progressing as expected Problem: Bleeding, Risk of Goal: Absence of impaired coagulation signs and symptoms Outcome: Progressing as expected Goal: Absence of active bleeding Outcome: Progressing as expected Problem: Discharge Planning Goal: Adequate for discharge Outcome: Progressing as expected Goal: Effective communication Outcome: Progressing as expected Problem: Fluid Volume - Imbalanced Goal: Absence of imbalanced fluid volume signs and symptoms Outcome: Progressing as expected Problem: Tissue Perfusion - Altered, Risk of Goal: Hemodynamically stable Outcome: Progressing as expected Problem: Respiratory Function - Impaired Goal: Adequate oxygenation Outcome: Progressing as expected Goal: Adequate work of breathing Outcome: Progressing as expected [facility] 2024-04-02 00:16:46 Problem: Falls, Risk of Goal: Absence of falls 04/02/202415 by Valorie Velázquez RN Outcome: Progressing as expected 04/02/202415 by Valorie Velázquez RN Outcome: Progressing as expected Problem: Pain Goal: Control of pain at or below patient's documented comfort goal 04/02/202415 by Valorie Velázquez RN Outcome: Progressing as expected 04/02/202415 by Valorie Velázquez RN Outcome: Progressing as expected Goal: Reduction in pain sensation 04/02/202415 by Valorie Velázquez RN Outcome: Progressing as expected 04/02/202415 by Valorie Velázquez RN Outcome: Progressing as expected Problem: Venous Thromboembolism, (actual or risk of) Goal: Absence of venous thromboembolism (Risk) 04/02/202415 by Valorie Velázquez RN Outcome: Progressing as expected 04/02/202415 by Valorie Velázquez RN Outcome: Progressing as expected Goal: Prevent further complications associated with VTE diagnosis (Actual) 04/02/202415 by Valorie Velázquez RN Outcome: Progressing as expected 04/02/202415 by Valorie Velázquez RN Outcome: Progressing as expected Problem: Infection Risk Goal: Absence of infection 04/02/202415 by Valorie Velázquez RN Outcome: Progressing as expected 04/02/202415 by Valorie Velázquez RN Outcome: Progressing as expected Problem: Skin integrity Impaired (Risk or Actual) Goal: Prevention of new skin breakdown 04/02/202415 by Valorie Velázquez RN Outcome: Progressing as expected 04/02/202415 by Valorie Velázquez RN Outcome: Progressing as expected Problem: Bleeding, Risk of Goal: Absence of impaired coagulation signs and symptoms 04/02/202415 by Valorie Velázquez RN Outcome: Progressing as expected 04/02/202415 by Valorie Velázquez RN Outcome: Progressing as expected Goal: Absence of active bleeding 04/02/202415 by Valorie Velázquez RN Outcome: Progressing as expected 04/02/202415 by Valorie Velázquez RN Outcome: Progressing as expected Problem: Discharge Planning Goal: Adequate for discharge 04/02/202415 by Valorie Velázquez RN Outcome: Progressing as expected 04/02/202415 by Valorie Velázquez RN Outcome: Progressing as expected Goal: Effective communication 04/02/202415 by Valorie Velázquez RN Outcome: Progressing as expected 04/02/202415 by Valorie Velázquez RN Outcome: Progressing as expected Problem: Fluid Volume - Imbalanced Goal: Absence of imbalanced fluid volume signs and symptoms 04/02/202415 by Valorie Velázquez RN Outcome: Progressing as expected 04/02/202415 by Valorie Velázquez RN Outcome: Progressing as expected Problem: Tissue Perfusion - Altered, Risk of Goal: Hemodynamically stable 04/02/202415 by Valorie Velázquez RN Outcome: Progressing as expected 04/02/202415 by Valorie Velázquez RN Outcome: Progressing as expected Problem: Respiratory Function - Impaired Goal: Adequate oxygenation 04/02/202415 by Valorie Velázquez RN Outcome: Progressing as expected 04/02/202415 by Valorie Velázquez RN Outcome: Progressing as expected Goal: Adequate work of breathing 04/02/202415 by Valorie Velázquez RN Outcome: Progressing as expected 04/02/202415 by Valorie Velázquez RN Outcome: Progressing as expected Y Velázquez RN [facility] 2024-04-01 11:19:01 Problem: Falls, Risk of Goal: Absence of falls Outcome: Progressing as expected Problem: Pain Goal: Control of pain at or below patient's documented comfort goal Outcome: Progressing as expected Goal: Reduction in pain sensation Outcome: Progressing as expected Problem: Venous Thromboembolism, (actual or risk of) Goal: Absence of venous thromboembolism (Risk) Outcome: Progressing as expected Goal: Prevent further complications associated with VTE diagnosis (Actual) Outcome: Progressing as expected Problem: Infection Risk Goal: Absence of infection Outcome: Progressing as expected Problem: Skin integrity Impaired (Risk or Actual) Goal: Prevention of new skin breakdown Outcome: Progressing as expected Problem: Bleeding, Risk of Goal: Absence of impaired coagulation signs and symptoms Outcome: Progressing as expected Goal: Absence of active bleeding Outcome: Progressing as expected Problem: Discharge Planning Goal: Adequate for discharge Outcome: Progressing as expected Goal: Effective communication Outcome: Progressing as expected Problem: Tissue Perfusion - Altered, Risk of Goal: Hemodynamically stable Outcome: Progressing as expected Problem: Fluid Volume - Imbalanced Goal: Absence of imbalanced fluid volume signs and symptoms Outcome: Progressing as expected Myra Reyna RN [facility] 2024-03-31 23:47:12 Problem: Falls, Risk of Goal: Absence of falls Outcome: Progressing as expected Problem: Pain Goal: Control of pain at or below patient's documented comfort goal Outcome: Progressing as expected Goal: Reduction in pain sensation Outcome: Progressing as expected Problem: Venous Thromboembolism, (actual or risk of) Goal: Absence of venous thromboembolism (Risk) Outcome: Progressing as expected Goal: Prevent further complications associated with VTE diagnosis (Actual) Outcome: Progressing as expected Problem: Infection Risk Goal: Absence of infection Outcome: Progressing as expected Problem: Skin integrity Impaired (Risk or Actual) Goal: Prevention of new skin breakdown Outcome: Progressing as expected Problem: Bleeding, Risk of Goal: Absence of impaired coagulation signs and symptoms Outcome: Progressing as expected Goal: Absence of active bleeding Outcome: Progressing as expected Problem: Discharge Planning Goal: Adequate for discharge Outcome: Progressing as expected Goal: Effective communication Outcome: Progressing as expected Problem: Fluid Volume - Imbalanced Goal: Absence of imbalanced fluid volume signs and symptoms Outcome: Progressing as expected Problem: Tissue Perfusion - Altered, Risk of Goal: Hemodynamically stable Outcome: Progressing as expected [facility] 2024-03-31 12:50:47 Problem: Falls, Risk of Goal: Absence of falls Outcome: Progressing as expected Problem: Pain Goal: Control of pain at or below patient's documented comfort goal Outcome: Progressing as expected Goal: Reduction in pain sensation Outcome: Progressing as expected Problem: Venous Thromboembolism, (actual or risk of) Goal: Absence of venous thromboembolism (Risk) Outcome: Progressing as expected Goal: Prevent further complications associated with VTE diagnosis (Actual) Outcome: Progressing as expected Problem: Infection Risk Goal: Absence of infection Outcome: Progressing as expected Problem: Skin integrity Impaired (Risk or Actual) Goal: Prevention of new skin breakdown Outcome: Progressing as expected Problem: Bleeding, Risk of Goal: Absence of impaired coagulation signs and symptoms Outcome: Progressing as expected Goal: Absence of active bleeding Outcome: Progressing as expected Problem: Discharge Planning Goal: Adequate for discharge Outcome: Progressing as expected Goal: Effective communication Outcome: Progressing as expected Problem: Tissue Perfusion - Altered, Risk of Goal: Hemodynamically stable Outcome: Progressing as expected Problem: Fluid Volume - Imbalanced Goal: Absence of imbalanced fluid volume signs and symptoms Outcome: Progressing as expected [facility] 2024-03-30 22:05:46 Problem: Falls, Risk of Goal: Absence of falls Outcome: Progressing as expected Problem: Pain Goal: Control of pain at or below patient's documented comfort goal Outcome: Progressing as expected Goal: Reduction in pain sensation Outcome: Progressing as expected Problem: Venous Thromboembolism, (actual or risk of) Goal: Absence of venous thromboembolism (Risk) Outcome: Progressing as expected Goal: Prevent further complications associated with VTE diagnosis (Actual) Outcome: Progressing as expected Problem: Infection Risk Goal: Absence of infection Outcome: Progressing as expected Problem: Skin integrity Impaired (Risk or Actual) Goal: Prevention of new skin breakdown Outcome: Progressing as expected Problem: Bleeding, Risk of Goal: Absence of impaired coagulation signs and symptoms Outcome: Progressing as expected Goal: Absence of active bleeding Outcome: Progressing as expected Problem: Discharge Planning Goal: Adequate for discharge Outcome: Progressing as expected Goal: Effective communication Outcome: Progressing as expected Problem: Fluid Volume - Imbalanced Goal: Absence of imbalanced fluid volume signs and symptoms Outcome: Progressing as expected Problem: Tissue Perfusion - Altered, Risk of Goal: Hemodynamically stable Outcome: Progressing as expected [facility] 2024-03-30 19:06:15 Problem: Falls, Risk of Goal: Absence of falls Outcome: Progressing as expected Problem: Pain Goal: Control of pain at or below patient's documented comfort goal Outcome: Progressing as expected Goal: Reduction in pain sensation Outcome: Progressing as expected Problem: Venous Thromboembolism, (actual or risk of) Goal: Absence of venous thromboembolism (Risk) Outcome: Progressing as expected Goal: Prevent further complications associated with VTE diagnosis (Actual) Outcome: Progressing as expected Problem: Infection Risk Goal: Absence of infection Outcome: Progressing as expected Problem: Skin integrity Impaired (Risk or Actual) Goal: Prevention of new skin breakdown Outcome: Progressing as expected Problem: Bleeding, Risk of Goal: Absence of impaired coagulation signs and symptoms Outcome: Progressing as expected Goal: Absence of active bleeding Outcome: Progressing as expected Problem: Discharge Planning Goal: Adequate for discharge Outcome: Progressing as expected Goal: Effective communication Outcome: Progressing as expected Problem: Tissue Perfusion - Altered, Risk of Goal: Hemodynamically stable Outcome: Progressing as expected Problem: Fluid Volume - Imbalanced Goal: Absence of imbalanced fluid volume signs and symptoms Outcome: Progressing as expected Carito Simpson RN [facility] 2024-03-29 11:10:32 Pt refusing scheduled duoneb tx and ABG. No respiratory distress noted at this time. VSWNL. MICU team updated Jess Domínguez RT [facility] 2024-03-27 19:26:24 Location of Patient: [place] [address] Name of Responding NCCU RN: Sania Del Real RN Name of Primary RN: Jennifer Yates RN Name of Responding Provider (Neurology): Aurea Weller MD CT Arrival Time: 1830 ALTEPLASE IV BOLUS FOR STROKE PROTOCOL has not been administered. TENECTEPLASE 50 MG IV SOLR FOR ACUTE ISCHEMIC STROKE has not been administered. Disposition of Patient: Back to room Relevant/Brief History of Events and Presentation of Symptoms: Stroke alert paged at 1821. Primary RN stated she had just received patient at 1800, but was told the patient had been altered all day by the patient's primary med-surg floor nurse. Patient was brought to ICU to intubate patient, then to call stroke alert once intubation was completed. Patient was intubated, then stroke alert was called as to plan. During my intial assessment patient was found to note have cough/gag, corneal, pupillary refkexes, pinpoint pupils, and not responding to painful stimulus. Neuro exam was suspected to be altered due to the roceronium, etomidate, and precedex given during intubation only 10 minutes prior according to the MICU resident. Patient was taken to CT accompanied by MUD ANALYSIS OPERATOR x 2, MD, and RT. MD ruled out stroke and stated no TNK/TPA was indicated at this time. Once the scan was completed, patient was noted to have pupillary response (2mm equal and brisk), moving bilateral upper extremities, but not following commands. Patient was returned to [facility] room 823. Sania Del Real RN [facility] 2024-03-27 17:04:00 Rapid Response Note MOTORCYCLE DESIGNER called due to patient becoming unresponsive. Pt HR 84 with frequent pvcs, bp 85 60, rr 14 and shallow breaths. Patient completely unresponsive to sternal rubs. Narcan given iv push due to recent norco dosing but no response. ABG drawn. MPU fellow at bedside and accepting patient for higher level of care at this time. MOTORCYCLE DESIGNER nurse facilitating transport to ICU. Rapid Response Note Constantino Jackson RN [facility] 2024-03-26 23:05:35 Problem: Falls, Risk of Goal: Absence of falls Outcome: Progressing as expected Problem: Pain Goal: Control of pain at or below patient's documented comfort goal Outcome: Progressing as expected Goal: Reduction in pain sensation Outcome: Progressing as expected Problem: Venous Thromboembolism, (actual or risk of) Goal: Absence of venous thromboembolism (Risk) Outcome: Progressing as expected Goal: Prevent further complications associated with VTE diagnosis (Actual) Outcome: Progressing as expected Problem: Infection Risk Goal: Absence of infection Outcome: Progressing as expected Problem: Skin integrity Impaired (Risk or Actual) Goal: Prevention of new skin breakdown Outcome: Progressing as expected Problem: Bleeding, Risk of Goal: Absence of impaired coagulation signs and symptoms Outcome: Progressing as expected Goal: Absence of active bleeding Outcome: Progressing as expected Problem: Discharge Planning Goal: Adequate for discharge Outcome: Progressing as expected Goal: Effective communication Outcome: Progressing as expected Problem: Fluid Volume - Imbalanced Goal: Absence of imbalanced fluid volume signs and symptoms Outcome: Progressing as expected Problem: Tissue Perfusion - Altered, Risk of Goal: Hemodynamically stable Outcome: Progressing as expected Matthew Padilla RN [facility] 2024-03-26 18:54:29 Problem: Falls, Risk of Goal: Absence of falls Outcome: Progressing as expected Problem: Pain Goal: Control of pain at or below patient's documented comfort goal Outcome: Progressing as expected Goal: Reduction in pain sensation Outcome: Progressing as expected Problem: Venous Thromboembolism, (actual or risk of) Goal: Absence of venous thromboembolism (Risk) Outcome: Progressing as expected Goal: Prevent further complications associated with VTE diagnosis (Actual) Outcome: Progressing as expected Problem: Infection Risk Goal: Absence of infection Outcome: Progressing as expected Problem: Skin integrity Impaired (Risk or Actual) Goal: Prevention of new skin breakdown Outcome: Progressing as expected Problem: Bleeding, Risk of Goal: Absence of impaired coagulation signs and symptoms Outcome: Progressing as expected Goal: Absence of active bleeding Outcome: Progressing as expected Problem: Discharge Planning Goal: Adequate for discharge Outcome: Progressing as expected Goal: Effective communication Outcome: Progressing as expected Gisela Pineda Mai, RN [facility] 2024-03-26 05:45:29 I was unable to collect patient blood, because patient could not stay still and her vain easily blow. Patient has no Peripheral iv. Pawel Lundberg RN [facility] 2024-03-26 03:16:25 Problem: Falls, Risk of Goal: Absence of falls Outcome: Progressing as expected [facility] 2024-03-25 15:12:32 Summary: patient confusion Patient resting in bed chewing strategy execution consultant-light and attempting to saw on nurse and PCT with plastic knife from kitchen. Patient then tried sawing on herself. Telesitter in room. Patient unable to follow any commands. Both sisters updated by physician via phone call. Aneta Montoya RN [facility] 2024-03-25 06:02:32 Problem: Falls, Risk of Goal: Absence of falls Outcome: Progressing as expected Problem: Pain Goal: Control of pain at or below patient's documented comfort goal Outcome: Progressing as expected Goal: Reduction in pain sensation Outcome: Progressing as expected Problem: Venous Thromboembolism, (actual or risk of) Goal: Absence of venous thromboembolism (Risk) Outcome: Progressing as expected Goal: Prevent further complications associated with VTE diagnosis (Actual) Outcome: Progressing as expected Problem: Infection Risk Goal: Absence of infection Outcome: Progressing as expected Problem: Skin integrity Impaired (Risk or Actual) Goal: Prevention of new skin breakdown Outcome: Progressing as expected Problem: Bleeding, Risk of Goal: Absence of impaired coagulation signs and symptoms Outcome: Progressing as expected Goal: Absence of active bleeding Outcome: Progressing as expected Problem: Discharge Planning Goal: Adequate for discharge Outcome: Progressing as expected Goal: Effective communication Outcome: Progressing as expected Marylu Najera RN [facility] 2024-03-24 05:38:47 Problem: Falls, Risk of Goal: Absence of falls Outcome: Progressing as expected Problem: Pain Goal: Control of pain at or below patient's documented comfort goal Outcome: Progressing as expected Goal: Reduction in pain sensation Outcome: Progressing as expected Problem: Venous Thromboembolism, (actual or risk of) Goal: Absence of venous thromboembolism (Risk) Outcome: Progressing as expected Goal: Prevent further complications associated with VTE diagnosis (Actual) Outcome: Progressing as expected Problem: Infection Risk Goal: Absence of infection Outcome: Progressing as expected Problem: Skin integrity Impaired (Risk or Actual) Goal: Prevention of new skin breakdown Outcome: Progressing as expected Problem: Bleeding, Risk of Goal: Absence of impaired coagulation signs and symptoms Outcome: Progressing as expected Goal: Absence of active bleeding Outcome: Progressing as expected Problem: Discharge Planning Goal: Adequate for discharge Outcome: Progressing as expected Problem: Tissue Perfusion - Altered, Risk of Goal: Hemodynamically stable Outcome: Progressing as expected Problem: Fluid Volume - Imbalanced Goal: Absence of imbalanced fluid volume signs and symptoms Outcome: Progressing as expected Angela Chaudhry RN [facility] 2024-03-22 19:56:00 Spoke with patient's sister, Soledad Moore, to inform her of pending transfer to [facility] [id number]. Provided her with the unit phone number. Will call her back when pt leaves for [place]. 3 - updated Ms. Moore with the time of patient's departure Gabrielle Ladd RN [facility] 2024-03-22 19:15:48 Pt family called and wants an update on her status. [phone] Archie moore is sister Roxie Teresa Ventura [facility] 2024-03-22 10:01:31 Problem: Falls, Risk of Goal: Absence of falls Outcome: Progressing as expected Problem: Pain Goal: Control of pain at or below patient's documented comfort goal Outcome: Progressing as expected Goal: Reduction in pain sensation Outcome: Progressing as expected Problem: Venous Thromboembolism, (actual or risk of) Goal: Absence of venous thromboembolism (Risk) Outcome: Progressing as expected Goal: Prevent further complications associated with VTE diagnosis (Actual) Outcome: Progressing as expected Problem: Infection Risk Goal: Absence of infection Outcome: Progressing as expected Problem: Skin integrity Impaired (Risk or Actual) Goal: Prevention of new skin breakdown Outcome: Progressing as expected Problem: Bleeding, Risk of Goal: Absence of impaired coagulation signs and symptoms Outcome: Progressing as expected Goal: Absence of active bleeding Outcome: Progressing as expected Problem: Discharge Planning Goal: Adequate for discharge Outcome: Progressing as expected Goal: Effective communication Outcome: Progressing as expected Problem: Fluid Volume - Imbalanced Goal: Absence of imbalanced fluid volume signs and symptoms Outcome: Progressing as expected Prema Jason RN [facility] 2024-03-21 22:36:00 Problem: Falls, Risk of Goal: Absence of falls Outcome: Progressing as expected Problem: Pain Goal: Control of pain at or below patient's documented comfort goal Outcome: Progressing as expected Goal: Reduction in pain sensation Outcome: Progressing as expected Problem: Venous Thromboembolism, (actual or risk of) Goal: Absence of venous thromboembolism (Risk) Outcome: Progressing as expected Goal: Prevent further complications associated with VTE diagnosis (Actual) Outcome: Progressing as expected Problem: Infection Risk Goal: Absence of infection Outcome: Progressing as expected Problem: Skin integrity Impaired (Risk or Actual) Goal: Prevention of new skin breakdown Outcome: Progressing as expected Problem: Bleeding, Risk of Goal: Absence of impaired coagulation signs and symptoms Outcome: Progressing as expected Goal: Absence of active bleeding Outcome: Progressing as expected Problem: Discharge Planning Goal: Adequate for discharge Outcome: Progressing as expected Goal: Effective communication Outcome: Progressing as expected Problem: Fluid Volume - Imbalanced Goal: Absence of imbalanced fluid volume signs and symptoms Outcome: Progressing as expected [facility] 2024-01-16 14:44:10 Contacted patient's sister, Soledad Moore, and she stated she will call back to see if patient's transportation is available for 01/17 for [facility] appointment [place] [facility] 2024-01-16 14:37:59 Please OB tomorrow at or Tue at [facility] Thanks URO-UROLOGY STAFF [facility] 2024-01-16 13:22:49 Patient already scheduled at [facility] for January 30. [place] [facility] 2024-01-16 13:13:11 Patient is needing a 2 week hospital follow up visit. Will route to provider to see if okay to add on this Tuesday. Fabiola Henson RN Fabiola Everett RN [facility] 2024-01-13 14:12:04 Copied from [facility] #[id number]. Topic: Appointment - Schedule Appointment >> Jan 13, 2024 2:09 PM Patient Clinical Athletic Instructor wrote: Pt sister calling to schedule an appt for cath removal with Tess Yoo for 2 week fu Please call Soledad [phone] Ann-Marie Braswell V [facility] 2024-01-09 13:40:40 TRANSITIONAL CARE MANAGEMENT ASSESSMENT 01/09/2024 Rick Mathur [id number] Rick Mathur is a 63 year old /White female was admitted on 12/29/[address] She was discharged on 01/06/24 with discharge disposition of HR- Routine Discharge. Admitting Physician: Enid Ferraro Discharge Diagnosis: Acute on chronic hypoxic respiratory failure 2/2 right-sided PTX s/p chest tube placement Linked Episodes Type: Episode: Status: Noted: Resolved: Last update: Updated by: TRANSITION OF CARE TCM Active 01/06/2024 01/09/2024 1:21 PM Benny Emanuel, RN Comments: TCM [id number] outreach documentation: Discharge Assessment Chart Assessed: 01/09/24 TCM Outreach Completed: 01/09/24 Do you have a few minutes to speak with me about how you are doing at home?: Yes (Spoke with pt's sister. States pt is doing "really well".) Discharge Instructions Do you understand your at-home instructions?: Yes (No questions at this time.) Medications Have you filled your prescriptions and do you have them in your home? : No Medication Interventions?: Care coordination (CM called [facility]. 90 day rx picked up 11/06/2023; too soon to refill. Pt's sister notified.) Do you know how to take your medications?: Yes (No questions.) Supplies Did you receive applicable home medical supplies/equipment?: Yes (O2) Do you understand how to use the medical supplies/equipment?: Yes Follow Up Appointment Has a follow up appointment been scheduled?: Yes Do you have any questions about your follow up appointments?: No Are you able to get to your appointment? Who will be taking you?: Yes (family) Home Health Assistance Has the home health nurse contacted you since you've been home?: Yes ([facility] 01/08/2024.) Survey - Recognition Is there anything you would like to share about your recent hospitalization, or anyone you would like to recognize?: No Do you have any suggestions for improvement?: No Do you have any other questions or concerns at this time?: No Future Appointments: Scheduled per patient. Benny Emanuel RN [facility] 2024-01-06 10:15:50 Problem: Discharge Planning Goal: Adequate for discharge Outcome: Progressing as expected Goal: Effective communication Outcome: Progressing as expected Problem: Falls, Risk of Goal: Absence of falls Outcome: Progressing as expected Problem: Fluid Volume - Imbalanced Goal: Absence of signs and symptoms of imbalanced fluid volume Outcome: Progressing as expected Problem: Pain Goal: Control of pain at or below patient's documented comfort goal Outcome: Progressing as expected Problem: Respiratory Function - Impaired Goal: Adequate oxygenation Outcome: Progressing as expected Goal: Adequate work of breathing Outcome: Progressing as expected Problem: Discharge Planning Goal: Adequate for discharge Outcome: Progressing as expected Goal: Effective communication Outcome: Progressing as expected Problem: Pain Goal: Control of pain at or below patient's documented comfort goal Outcome: Progressing as expected Problem: Respiratory Function - Impaired Goal: Able to cough effectively Outcome: Progressing as expected Goal: Adequate oxygenation Outcome: Progressing as expected Goal: Adequate work of breathing Outcome: Progressing as expected Goal: Patent airway Outcome: Progressing as expected Y OPERATOR Devon Rivera RN [facility] 2024-01-05 19:37:40 Problem: Discharge Planning Goal: Adequate for discharge Outcome: Progressing as expected Goal: Effective communication Outcome: Progressing as expected Problem: Falls, Risk of Goal: Absence of falls Outcome: Progressing as expected Problem: Fluid Volume - Imbalanced Goal: Absence of signs and symptoms of imbalanced fluid volume Outcome: Progressing as expected Problem: Pain Goal: Control of pain at or below patient's documented comfort goal Outcome: Progressing as expected Problem: Respiratory Function - Impaired Goal: Adequate oxygenation Outcome: Progressing as expected Goal: Adequate work of breathing Outcome: Progressing as expected Problem: Discharge Planning Goal: Adequate for discharge Outcome: Progressing as expected Goal: Effective communication Outcome: Progressing as expected Problem: Pain Goal: Control of pain at or below patient's documented comfort goal Outcome: Progressing as expected Goal: Reduction in pain sensation Outcome: Progressing as expected Problem: Respiratory Function - Impaired Goal: Able to cough effectively Outcome: Progressing as expected Goal: Adequate oxygenation Outcome: Progressing as expected Goal: Adequate work of breathing Outcome: Progressing as expected Goal: Patent airway Outcome: Progressing as expected HOSPITAL Max Mosley RN [facility] 2024-01-05 10:26:53 Problem: Discharge Planning Goal: Adequate for discharge Outcome: Progressing as expected Goal: Effective communication Outcome: Progressing as expected Problem: Falls, Risk of Goal: Absence of falls Outcome: Progressing as expected Problem: Fluid Volume - Imbalanced Goal: Absence of signs and symptoms of imbalanced fluid volume Outcome: Progressing as expected Problem: Pain Goal: Control of pain at or below patient's documented comfort goal Outcome: Progressing as expected Problem: Respiratory Function - Impaired Goal: Adequate oxygenation Outcome: Progressing as expected Goal: Adequate work of breathing Outcome: Progressing as expected Problem: Discharge Planning Goal: Adequate for discharge Outcome: Progressing as expected Goal: Effective communication Outcome: Progressing as expected Problem: Pain Goal: Control of pain at or below patient's documented comfort goal Outcome: Progressing as expected Goal: Reduction in pain sensation Outcome: Progressing as expected Problem: Respiratory Function - Impaired Goal: Able to cough effectively Outcome: Progressing as expected Goal: Adequate oxygenation Outcome: Progressing as expected Goal: Adequate work of breathing Outcome: Progressing as expected Goal: Patent airway Outcome: Progressing as expected [facility] 2024-01-05 01:14:03 Problem: Discharge Planning Goal: Adequate for discharge Outcome: Progressing as expected Goal: Effective communication Outcome: Progressing as expected Problem: Falls, Risk of Goal: Absence of falls Outcome: Progressing as expected Problem: Fluid Volume - Imbalanced Goal: Absence of signs and symptoms of imbalanced fluid volume Outcome: Progressing as expected Problem: Pain Goal: Control of pain at or below patient's documented comfort goal Outcome: Progressing as expected Problem: Respiratory Function - Impaired Goal: Adequate oxygenation Outcome: Progressing as expected Goal: Adequate work of breathing Outcome: Progressing as expected Problem: Discharge Planning Goal: Adequate for discharge Outcome: Progressing as expected Goal: Effective communication Outcome: Progressing as expected Problem: Pain Goal: Control of pain at or below patient's documented comfort goal Outcome: Progressing as expected Goal: Reduction in pain sensation Outcome: Progressing as expected Problem: Respiratory Function - Impaired Goal: Able to cough effectively Outcome: Progressing as expected Goal: Adequate oxygenation Outcome: Progressing as expected Goal: Adequate work of breathing Outcome: Progressing as expected Goal: Patent airway Outcome: Progressing as expected Y OPERATOR Valorie Velázquez RN [facility] 2024-01-04 07:53:30 Problem: Discharge Planning Goal: Adequate for discharge Outcome: Progressing as expected Goal: Effective communication Outcome: Progressing as expected Problem: Falls, Risk of Goal: Absence of falls Outcome: Progressing as expected Problem: Fluid Volume - Imbalanced Goal: Absence of signs and symptoms of imbalanced fluid volume Outcome: Progressing as expected Problem: Pain Goal: Control of pain at or below patient's documented comfort goal Outcome: Progressing as expected Problem: Respiratory Function - Impaired Goal: Adequate oxygenation Outcome: Progressing as expected Goal: Adequate work of breathing Outcome: Progressing as expected [facility] 2024-01-03 19:22:57 Problem: Discharge Planning Goal: Adequate for discharge Outcome: Progressing as expected Goal: Effective communication Outcome: Progressing as expected Problem: Falls, Risk of Goal: Absence of falls Outcome: Progressing as expected Problem: Fluid Volume - Imbalanced Goal: Absence of signs and symptoms of imbalanced fluid volume Outcome: Progressing as expected Problem: Pain Goal: Control of pain at or below patient's documented comfort goal Outcome: Progressing as expected Problem: Respiratory Function - Impaired Goal: Adequate oxygenation Outcome: Progressing as expected Goal: Adequate work of breathing Outcome: Progressing as expected Y OPERATOR Genevieve Everett RN [facility] 2024-01-03 18:25:11 Problem: Falls, Risk of Goal: Absence of falls Outcome: Progressing as expected Problem: Fluid Volume - Imbalanced Goal: Absence of signs and symptoms of imbalanced fluid volume Outcome: Progressing as expected Problem: Pain Goal: Control of pain at or below patient's documented comfort goal Outcome: Progressing as expected Problem: Respiratory Function - Impaired Goal: Adequate oxygenation Outcome: Progressing as expected Goal: Adequate work of breathing Outcome: Progressing as expected Y OPERATOR Salvador Reyna RN [facility] 2024-01-03 02:41:49 Problem: Discharge Planning Goal: Adequate for discharge Outcome: Progressing as expected Goal: Effective communication Outcome: Progressing as expected Problem: Falls, Risk of Goal: Absence of falls Outcome: Progressing as expected Problem: Fluid Volume - Imbalanced Goal: Absence of signs and symptoms of imbalanced fluid volume Outcome: Progressing as expected Problem: Pain Goal: Control of pain at or below patient's documented comfort goal Outcome: Progressing as expected Problem: Respiratory Function - Impaired Goal: Adequate oxygenation Outcome: Progressing as expected Goal: Adequate work of breathing Outcome: Progressing as expected [facility] 2024-01-02 10:46:26 Problem: Discharge Planning Goal: Adequate for discharge Outcome: Progressing as expected Goal: Effective communication Outcome: Progressing as expected Problem: Falls, Risk of Goal: Absence of falls Outcome: Progressing as expected Problem: Fluid Volume - Imbalanced Goal: Absence of signs and symptoms of imbalanced fluid volume Outcome: Progressing as expected Problem: Pain Goal: Control of pain at or below patient's documented comfort goal Outcome: Progressing as expected Problem: Respiratory Function - Impaired Goal: Adequate oxygenation Outcome: Progressing as expected Goal: Adequate work of breathing Outcome: Progressing as expected Y OPERATOR Myra Reyna RN [facility] 2024-01-01 19:43:46 Problem: Discharge Planning Goal: Adequate for discharge Outcome: Progressing as expected Goal: Effective communication Outcome: Progressing as expected Problem: Falls, Risk of Goal: Absence of falls Outcome: Progressing as expected Problem: Fluid Volume - Imbalanced Goal: Absence of signs and symptoms of imbalanced fluid volume Outcome: Progressing as expected Problem: Pain Goal: Control of pain at or below patient's documented comfort goal Outcome: Progressing as expected Problem: Respiratory Function - Impaired Goal: Adequate oxygenation Outcome: Progressing as expected Goal: Adequate work of breathing Outcome: Progressing as expected [facility] 2024-01-01 13:30:21 Problem: Discharge Planning Goal: Adequate for discharge Outcome: Progressing as expected Goal: Effective communication Outcome: Progressing as expected Problem: Falls, Risk of Goal: Absence of falls Outcome: Progressing as expected Problem: Fluid Volume - Imbalanced Goal: Absence of signs and symptoms of imbalanced fluid volume Outcome: Progressing as expected Problem: Pain Goal: Control of pain at or below patient's documented comfort goal Outcome: Progressing as expected Problem: Respiratory Function - Impaired Goal: Adequate oxygenation Outcome: Progressing as expected Goal: Adequate work of breathing Outcome: Progressing as expected [facility] 2023-12-31 19:20:00 Problem: Discharge Planning Goal: Adequate for discharge Outcome: Progressing as expected Goal: Effective communication Outcome: Progressing as expected Problem: Falls, Risk of Goal: Absence of falls Outcome: Progressing as expected Problem: Fluid Volume - Imbalanced Goal: Absence of signs and symptoms of imbalanced fluid volume Outcome: Progressing as expected Problem: Pain Goal: Control of pain at or below patient's documented comfort goal Outcome: Progressing as expected Problem: Respiratory Function - Impaired Goal: Adequate oxygenation Outcome: Progressing as expected Goal: Adequate work of breathing Outcome: Progressing as expected HOSPITAL Marguerite Carter RN [facility] 2023-12-31 11:26:49 Problem: Falls, Risk of Goal: Absence of falls Outcome: Progressing as expected Problem: Fluid Volume - Imbalanced Goal: Absence of signs and symptoms of imbalanced fluid volume Outcome: Progressing as expected Problem: Pain Goal: Control of pain at or below patient's documented comfort goal Outcome: Progressing as expected Problem: Respiratory Function - Impaired Goal: Adequate oxygenation Outcome: Progressing as expected Goal: Adequate work of breathing Outcome: Progressing as expected [facility] 2023-12-30 09:22:07 Problem: Discharge Planning Goal: Adequate for discharge Outcome: Progressing as expected Goal: Effective communication Outcome: Progressing as expected Problem: Falls, Risk of Goal: Absence of falls Outcome: Progressing as expected Problem: Fluid Volume - Imbalanced Goal: Absence of signs and symptoms of imbalanced fluid volume Outcome: Progressing as expected Problem: Pain Goal: Control of pain at or below patient's documented comfort goal Outcome: Progressing as expected Problem: Respiratory Function - Impaired Goal: Adequate oxygenation Outcome: Progressing as expected Goal: Adequate work of breathing Outcome: Progressing as expected HOSPITAL Jenn Cartagena RN [facility] 2023-12-30 05:52:08 Updated sister Rodri Yancey on pt status and POC. Sister with no further questions at this time. [facility] 2023-12-29 21:42:32 Problem: Discharge Planning Goal: Adequate for discharge Outcome: Progressing as expected Goal: Effective communication Outcome: Progressing as expected Problem: Falls, Risk of Goal: Absence of falls Outcome: Progressing as expected Problem: Fluid Volume - Imbalanced Goal: Absence of signs and symptoms of imbalanced fluid volume Outcome: Progressing as expected Problem: Pain Goal: Control of pain at or below patient's documented comfort goal Outcome: Progressing as expected Problem: Respiratory Function - Impaired Goal: Adequate oxygenation Outcome: Progressing as expected Goal: Adequate work of breathing Outcome: Progressing as expected [facility] 2023-11-30 11:49:00 TRANSITIONAL CARE MANAGEMENT ASSESSMENT 11/30/2023 Rick Mathur [id number] Rick Mathur is a 62 year old /White female was admitted on 11/25/[address] She was discharged on 11/29/23 with discharge disposition of HR- Routine Discharge. Admitting Physician: Crescencio Wilson Discharge Diagnosis: Pneumothorax Linked Episodes Type: Episode: Status: Noted: Resolved: Last update: Updated by: TRANSITION OF CARE TCM Active 11/29/2023 11/30/2023 11:36 AM Benny Emanuel, RN Comments: TCM [id number] outreach documentation: Discharge Assessment Chart Assessed: 11/30/23 TCM Outreach Completed: 11/30/23 Do you have a few minutes to speak with me about how you are doing at home?: Yes (Spoke with pt's sister. States pt is doing "real good".) Discharge Instructions Do you understand your at-home instructions?: Yes (No questions at this time.) Medications Have you filled your prescriptions and do you have them in your home? : N/A (No new medications prescribed at discharge.) Do you know how to take your medications?: Yes Can you provide me with the names or descriptions of any [id number] or supplements you are currently taking?: Yes (Excedrin PRN) Supplies Did you receive applicable home medical supplies/equipment?: N/A Follow Up Appointment Has a follow up appointment been scheduled?: No May I assist with scheduling this appointment?: Patient has outside PCP (They will schedule today.) Do you have any questions about your follow up appointments?: No Are you able to get to your appointment? Who will be taking you?: Yes Home Health Assistance Has the home health nurse contacted you since you've been home?: Yes ([facility]) Survey - Recognition Is there anything you would like to share about your recent hospitalization, or anyone you would like to recognize?: No Do you have any suggestions for improvement?: No Do you have any other questions or concerns at this time?: No Future Appointments: Pending. M Emanuel RN [facility] 2023-11-29 14:15:45 Problem: Pain Goal: Control of pain at or below patient's documented comfort goal 11/29/2023 1415 by Nadine Rai, SONG Outcome: Resolved 11/29/2023 07 by Nadine Rai RN Outcome: Progressing as expected Goal: Reduction in pain sensation 11/29/2023 1415 by Nadine Rai RN Outcome: Resolved 11/29/2023 07 by Nadine Rai RN Outcome: Progressing as expected Problem: Falls, Risk of Goal: Absence of falls 11/29/2023 1415 by Nadine Rai RN Outcome: Resolved 11/29/2023720 by Nadine Rai RN Outcome: Progressing as expected Problem: Discharge Planning Goal: Adequate for discharge 11/29/2023 1415 by Nadine Rai RN Outcome: Resolved 11/29/2023720 by Nadine Rai RN Outcome: Progressing as expected Goal: Effective communication 11/29/2023 1415 by Nadine Rai RN Outcome: Resolved 11/29/2023720 by Nadine Rai RN Outcome: Progressing as expected Problem: Infection Risk Goal: Absence of infection 11/29/2023 141 by Nadine Rai RN Outcome: Resolved 11/29/2023720 by Nadine Rai RN Outcome: Progressing as expected Problem: Respiratory Function - Impaired Goal: Able to cough effectively 11/29/2023 1415 by Nadine Rai RN Outcome: Resolved 11/29/2023720 by Nadine Rai RN Outcome: Progressing as expected Goal: Adequate oxygenation 11/29/2023 1415 by Nadine Rai RN Outcome: Resolved 11/29/2023 07 by Nadine Ria RN Outcome: Progressing as expected Goal: Adequate work of breathing 11/29/2023 1415 by Nadine Rai RN Outcome: Resolved 11/29/2023 07 by Nadine Rai RN Outcome: Progressing as expected Goal: Patent airway Outcome: Resolved Problem: Cardiac Output - Decreased Goal: Absence of signs and symptoms of decreased cardiac output 11/29/2023 1415 by Nadine Rai RN Outcome: Resolved 11/29/2023720 by Nadine Rai RN Outcome: Progressing as expected M Rai RN [facility] 2023-11-29 07:21:16 Problem: Pain Goal: Control of pain at or below patient's documented comfort goal Outcome: Progressing as expected Goal: Reduction in pain sensation Outcome: Progressing as expected Problem: Falls, Risk of Goal: Absence of falls Outcome: Progressing as expected Problem: Discharge Planning Goal: Adequate for discharge Outcome: Progressing as expected Goal: Effective communication Outcome: Progressing as expected Problem: Infection Risk Goal: Absence of infection Outcome: Progressing as expected Problem: Respiratory Function - Impaired Goal: Able to cough effectively Outcome: Progressing as expected Goal: Adequate oxygenation Outcome: Progressing as expected Goal: Adequate work of breathing Outcome: Progressing as expected Goal: Patent airway Outcome: Resolved Problem: Cardiac Output - Decreased Goal: Absence of signs and symptoms of decreased cardiac output Outcome: Progressing as expected Y OPERATOR [facility] 2023-11-29 02:42:11 Problem: Pain Goal: Control of pain at or below patient's documented comfort goal Outcome: Progressing as expected Goal: Reduction in pain sensation Outcome: Progressing as expected Problem: Falls, Risk of Goal: Absence of falls Outcome: Progressing as expected Problem: Discharge Planning Goal: Adequate for discharge Outcome: Progressing as expected Goal: Effective communication Outcome: Progressing as expected Problem: Infection Risk Goal: Absence of infection Outcome: Progressing as expected Problem: Respiratory Function - Impaired Goal: Able to cough effectively Outcome: Progressing as expected Goal: Adequate oxygenation Outcome: Progressing as expected Goal: Adequate work of breathing Outcome: Progressing as expected Goal: Patent airway Outcome: Progressing as expected Problem: Cardiac Output - Decreased Goal: Absence of signs and symptoms of decreased cardiac output Outcome: Progressing as expected M Esposito RN [facility] 2023-11-27 22:35:34 Problem: Pain Goal: Control of pain at or below patient's documented comfort goal Outcome: Progressing as expected Goal: Reduction in pain sensation Outcome: Progressing as expected Problem: Falls, Risk of Goal: Absence of falls Outcome: Progressing as expected Problem: Discharge Planning Goal: Adequate for discharge Outcome: Progressing as expected Goal: Effective communication Outcome: Progressing as expected Problem: Infection Risk Goal: Absence of infection Outcome: Progressing as expected Problem: Respiratory Function - Impaired Goal: Able to cough effectively Outcome: Progressing as expected Goal: Adequate oxygenation Outcome: Progressing as expected Goal: Adequate work of breathing Outcome: Progressing as expected Goal: Patent airway Outcome: Progressing as expected Problem: Cardiac Output - Decreased Goal: Absence of signs and symptoms of decreased cardiac output Outcome: Progressing as expected Y OPERATOR Candice Hernandez RN [facility] 2023-11-27 07:41:47 Problem: Pain Goal: Control of pain at or below patient's documented comfort goal Outcome: Progressing as expected Goal: Reduction in pain sensation Outcome: Progressing as expected Problem: Falls, Risk of Goal: Absence of falls Outcome: Progressing as expected Problem: Discharge Planning Goal: Adequate for discharge Outcome: Progressing as expected Goal: Effective communication Outcome: Progressing as expected Problem: Infection Risk Goal: Absence of infection Outcome: Progressing as expected Problem: Respiratory Function - Impaired Goal: Able to cough effectively Outcome: Progressing as expected Goal: Adequate oxygenation Outcome: Progressing as expected Goal: Adequate work of breathing Outcome: Progressing as expected Goal: Patent airway Outcome: Progressing as expected Problem: Cardiac Output - Decreased Goal: Absence of signs and symptoms of decreased cardiac output Outcome: Progressing as expected Y OPERATOR Dayana Paredes RN [facility] 2023-11-26 20:57:26 Problem: Pain Goal: Control of pain at or below patient's documented comfort goal Outcome: Progressing as expected Goal: Reduction in pain sensation Outcome: Progressing as expected Problem: Falls, Risk of Goal: Absence of falls Outcome: Progressing as expected Problem: Discharge Planning Goal: Adequate for discharge Outcome: Progressing as expected Goal: Effective communication Outcome: Progressing as expected Problem: Infection Risk Goal: Absence of infection Outcome: Progressing as expected Problem: Respiratory Function - Impaired Goal: Able to cough effectively Outcome: Progressing as expected Goal: Adequate oxygenation Outcome: Progressing as expected Goal: Adequate work of breathing Outcome: Progressing as expected Goal: Patent airway Outcome: Progressing as expected Problem: Cardiac Output - Decreased Goal: Absence of signs and symptoms of decreased cardiac output Outcome: Progressing as expected HOSPITAL Aparna Cooper RN [facility] 2023-11-26 07:33:48 Problem: Pain Goal: Control of pain at or below patient's documented comfort goal Outcome: Progressing as expected Goal: Reduction in pain sensation Outcome: Progressing as expected Problem: Falls, Risk of Goal: Absence of falls Outcome: Progressing as expected Problem: Discharge Planning Goal: Adequate for discharge Outcome: Progressing as expected Goal: Effective communication Outcome: Progressing as expected Problem: Infection Risk Goal: Absence of infection Outcome: Progressing as expected Problem: Respiratory Function - Impaired Goal: Able to cough effectively Outcome: Progressing as expected Goal: Adequate oxygenation Outcome: Progressing as expected Goal: Adequate work of breathing Outcome: Progressing as expected Goal: Patent airway Outcome: Progressing as expected Problem: Cardiac Output - Decreased Goal: Absence of signs and symptoms of decreased cardiac output Outcome: Progressing as expected [facility] 2023-11-25 21:53:47 Problem: Pain Goal: Control of pain at or below patient's documented comfort goal Outcome: Progressing as expected Goal: Reduction in pain sensation Outcome: Progressing as expected Problem: Falls, Risk of Goal: Absence of falls Outcome: Progressing as expected Problem: Discharge Planning Goal: Adequate for discharge Outcome: Progressing as expected Goal: Effective communication Outcome: Progressing as expected Problem: Infection Risk Goal: Absence of infection Outcome: Progressing as expected Problem: Respiratory Function - Impaired Goal: Able to cough effectively Outcome: Progressing as expected Goal: Adequate oxygenation Outcome: Progressing as expected Goal: Adequate work of breathing Outcome: Progressing as expected Goal: Patent airway Outcome: Progressing as expected Problem: Cardiac Output - Decreased Goal: Absence of signs and symptoms of decreased cardiac output Outcome: Progressing as expected [facility] 2023-11-25 12:34:15 Problem: Pain Goal: Control of pain at or below patient's documented comfort goal Outcome: Progressing as expected Goal: Reduction in pain sensation Outcome: Progressing as expected Problem: Falls, Risk of Goal: Absence of falls Outcome: Progressing as expected Problem: Discharge Planning Goal: Adequate for discharge Outcome: Progressing as expected Goal: Effective communication Outcome: Progressing as expected Problem: Infection Risk Goal: Absence of infection Outcome: Progressing as expected Problem: Respiratory Function - Impaired Goal: Able to cough effectively Outcome: Progressing as expected Goal: Adequate oxygenation Outcome: Progressing as expected Goal: Adequate work of breathing Outcome: Progressing as expected Goal: Patent airway Outcome: Progressing as expected Y OPERATOR Devon Rivera RN [facility] 2023-11-25 05:12:24 Problem: Pain Goal: Control of pain at or below patient's documented comfort goal Outcome: Progressing as expected Goal: Reduction in pain sensation Outcome: Progressing as expected Problem: Falls, Risk of Goal: Absence of falls Outcome: Progressing as expected Problem: Discharge Planning Goal: Adequate for discharge Outcome: Progressing as expected Goal: Effective communication Outcome: Progressing as expected Problem: Infection Risk Goal: Absence of infection Outcome: Progressing as expected Problem: Respiratory Function - Impaired Goal: Able to cough effectively Outcome: Progressing as expected Goal: Adequate oxygenation Outcome: Progressing as expected Goal: Adequate work of breathing Outcome: Progressing as expected Goal: Patent airway Outcome: Progressing as expected M Morse RN [facility] 2023-09-14 05:34:00 EXAM: XR LEFT WRIST 3 VIEWS DATE: 09/14/2023 5:34 INDICATION: - Fracture follow up COMPARISON: 09/07/2023 left wrist x-ray TECHNIQUE: 3 views of the wrist FINDINGS: Similar alignment of the comminuted and displaced intra-articular distal radial fracture as well as the comminuted and displaced distal ulnar fractures. No appreciable callus formation. Overlying cast limits soft tissue assessment. IMPRESSION: 1. Similar alignment of the intra-articular distal radial fracture and the distal ulna diaphyseal fractures. No appreciable callus formation. [facility] 2023-09-09 13:42:50 EXAM: XR CHEST 1 VIEW DATE: 09/09/2023, 13:47. Age: 62 years y/o Female INDICATION: - 2 hours s/p CT removal COMPARISON: Prior same-day radiograph. TECHNIQUE: AP chest. IMPRESSION: Lines/tubes: Right chest tube has been removed. Heart and mediastinum: The cardiomediastinal silhouette is stable. Aortic vascular wall calcifications are noted. Lungs: Persistent elevation of the left hemidiaphragm. Grossly unchanged patchy airspace opacities throughout the right lung, may be related to infection or aspiration. Pleura: The costophrenic sulci are sharp without evidence of pleural effusion. No pneumothorax is identified on this portable radiograph. Musculoskeletal: The regional skeleton is unchanged. [facility] 2023-09-09 02:46:00 EXAM: XR CHEST 1 VIEW DATE: 09/09/2023 2:46 INDICATION: Respiratory distress - PTX COMPARISON: Chest x-ray dated 09/08/2023 TECHNIQUE: AP chest. IMPRESSION: Lines/tubes: Right-sided chest tube extending to the right apex is again noted. Heart and mediastinum: Cardiomediastinal silhouette is slightly shifted to the right could be related to thoracic scoliosis. Lungs and pleura: Background emphysematous changes are again noted. Right and lower lung zone airspace opacities slightly improved compared to prior study and better characterized on admission CT. No perceptible residual pneumothorax. No definite pleural effusion. Left hemidiaphragm is elevated.. Osseous structures and soft tissues: Osseous structures are with S-shaped thoracic scoliosis and severe degenerative changes in the left glenohumeral joint with humeral head resorption/deformity. [facility] 2023-09-08 14:14:36 EXAM: XR CHEST 1 VIEW DATE: 09/08/2023 14:14 INDICATION: - [address] to waterseal COMPARISON: Chest x-ray dated 09/08/2023 TECHNIQUE: AP chest. IMPRESSION: Lines/tubes: Right-sided chest tube extending to the apex is again noted, unchanged. Heart and mediastinum: Cardiomediastinal silhouette is slightly shifted to the right could be related to thoracic scoliosis. Lungs and pleura: Background emphysematous changes are again noted. Right and lower lung zone airspace opacities not significantly changed compared to prior study and better characterized on admission CT. No perceptible residual pneumothorax. No definite pleural effusion. Left hemidiaphragm is elevated.. Osseous structures and soft tissues: Osseous structures are with S-shaped thoracic scoliosis and severe degenerative changes in the left glenohumeral joint with humeral head resorption/deformity. [facility] 2023-09-08 04:12:25 EXAM: MRI BRAIN WITH AND WITHOUT CONTRAST DATE: 09/08/2023 INDICATION: - acute vs subacute lesion. Patient with history of ground level fall. COMPARISON: CT head without contrast dated September 07, 2023. TECHNIQUE: Multiplanar, multisequence MRI of the brain with and without contrast. Motion degraded examination which was terminated early. IV contrast: Refer to geospatial information technologist documentation FINDINGS: There is no definite mass lesion or recent ischemic change. There is encephalomalacia with gyriform mineral deposits and surrounding gliosis corresponding to the hypodense areas seen on the comparison CT in the right parietal lobe. Areas of encephalomalacia in the right temporal abd occipital lobes are also demonstrated. Scattered periventricular, T2-FLAIR hyperintensities most consistent with moderate chronic microvascular ischemic changes. The ventricles and sulcal spaces are enlarged due to central brain parenchymal volume loss. The intracranial arterial and venous structures demonstrate normal flow voids. The included paranasal sinuses and skull base are unremarkable. IMPRESSION: 1. Motion degraded examination resulting in a limited study. Within the limitations of this examination there is no evidence of recent ischemia. 2. Remote hemorrhagic insult in the right parietal lobe. 3. Encephalomalacia right temporal and occipital lobes. 4. Chronic changes. [facility] 2023-09-08 03:06:00 EXAM: XR CHEST 1 VIEW DATE: 09/08/2023 3:06 INDICATION: - OK CT in place COMPARISON: 09/07/2023 TECHNIQUE: AP chest IMPRESSION: Stable right-sided chest tube. Positional rightward shift of the cardiomediastinal silhouette secondary to scoliotic curvature. In a background of emphysema persistent asymmetric to the right airspace opacities as characterized on admission CT chest. Small residual right pneumothorax. Trace right pleural effusion. Regional skeleton is unchanged. [facility] 2023-09-07 18:20:00 EXAM: XR CHEST 1 VIEW DATE: 09/07/2023 18:20 INDICATION: - CT in place COMPARISON: Chest radiograph from 09/07/2023 at 0409 TECHNIQUE: AP chest. [place] SECTION: ER FINDINGS: Lines, tubes and hardware: Chest tube in place with tip projecting over the right apex. Lungs and pleura: Persistent pulmonary opacities in the right lung without significant interval change. The costophrenic sulci are sharp without effusion. No perceptible pneumothorax. [place] present at the right apex. Mild elevation of the left hemidiaphragm noted. Heart and mediastinum: The heart size is normal. The mediastinal contours are stable. Bones and soft tissues: No acute abnormality. Diffuse osteopenia noted. Scoliosis noted. Severe arthropathy of the left glenohumeral joint with deformity. IMPRESSION: No perceptible pneumothorax. Stable position of the right-sided chest tube. Diffuse right pulmonary opacity within the reexpanded right lung may suggest contusion, edema, infection and/or aspiration. [facility] 2023-09-07 04:05:00 EXAM: XR LEFT WRIST 3 VIEWS DATE: 09/07/2023 4:05 INDICATION: - post splint COMPARISON: 09/06/2023 TECHNIQUE: 3 views of the wrist FINDINGS/IMPRESSION: Interval placement of a cast/splint which limits evaluation of fine bony detail. The comminuted, intra-articular fracture of the distal left radius is again noted with improved anatomic alignment. Comminuted fracture of the distal left ulnar diaphysis is unchanged. Soft tissue swelling of the left wrist/distal forearm. [facility] 2023-09-07 04:05:00 EXAM: XR CHEST 1 VIEW DATE: 09/07/2023 4:05 INDICATION: - eval R PTX COMPARISON: 09/06/2023 TECHNIQUE: AP chest. FINDINGS: Lines, tubes and hardware: Right-sided chest tube is again noted. Lungs and pleura: Continued improvement of the reexpansion of the right lung. The right pneumothorax is no longer visualized. Persistent pulmonary opacities within the right lung. Heart and mediastinum: The cardiomediastinal contours are unchanged. Atherosclerotic calcifications of the thoracic aorta. Bones and soft tissues: The bones are unchanged. IMPRESSION: 1. Continued improvement of the reexpansion of the right lung with diffuse pulmonary opacity within the right lung may represent pulmonary contusion, reexpansion pulmonary edema or aspiration. 2. The right pneumothorax is no longer visualized. 3. Otherwise no significant change from the prior examination. [facility] 2023-09-07 01:44:51 EXAM: CT CERVICAL SPINE WITHOUT CONTRAST DATE: 09/07/2023 1:44 INDICATION: - pain after GLF COMPARISON: None available TECHNIQUE: Volumetric CT of the cervical spine is acquired without contrast. Axial, coronal and sagittal images are provided. IV contrast: None. DLP: Refer to CT protocol form [place] SECTION: ER FINDINGS: The spine is imaged from the skull base to the level of T2. Management Engineer: Noncontributory. Bones: No acute fracture or malalignment is identified. Multilevel degenerative changes including loss of intervertebral disc height, subchondral sclerosis and cystic formation, greatest within the lower cervical spine. Grade 1 anterolisthesis of C5 on C6. There is moderate spinal canal stenosis at C5-C6. Soft tissues: No acute soft tissue abnormality is identified. 1.5 cm calcified left thyroid nodule. Emphysematous changes within the biapical lungs. Partially visualized chest tube. IMPRESSION: 1. No acute fracture or malalignment of the cervical spine. 2. Multilevel degenerative changes as detailed above with moderate canal stenosis greatest at C5-C6. 3. 1.5 cm calcified left thyroid nodule. Recommend thyroid ultrasound to further evaluate. [facility] 2023-09-07 01:44:51 EXAM: CT CHEST WITH CONTRAST EXAM: CT ABDOMEN AND PELVIS WITH CONTRAST DATE: 09/07/2023 1:44 INDICATION: - pain after GLF COMPARISON: Chest radiograph from 09/06/2023 TECHNIQUE: Volumetric CT of the chest, abdomen and pelvis is acquired following intravenous administration of contrast. Axial, coronal and sagittal images are provided. IV contrast: Refer to MAR/technologist documentation Oral contrast: None. DLP: Refer to CT protocol form [place] SECTION: ER FINDINGS: Management Engineer: Noncontributory. Lines and tubes: Right lateral approach chest tube with the tip terminating at the right lung apex Lower Neck: Supraclavicular soft tissues are within normal limits. Thoracic Aorta and Mediastinum: No mediastinal hematoma or thoracic aortic injury. Normal heart and pericardium. Lungs, Pleura, Diaphragm: Relative to the initial chest radiograph from 09/06/2023 there is improvement in the large right pneumothorax, which is now small in size. Biapical paraseptal and centrilobular emphysematous changes. Trace right pleural effusion. Subsegmental atelectasis within the right lung. Liver and biliary tree: No injury. Gallbladder: No injury. Pancreas: No injury. Spleen: No injury. Adrenals: No injury. Kidneys and ureters: No injury. Bilateral subcentimeter cortical renal cysts. There is symmetric excretion of contrast on delayed phase images. Bladder: No injury. Distended with urine. Reproductive organs: No injury. Gastrointestinal tract: No injury. Peritoneum and retroperitoneum: No fluid collections or free air. Lymph nodes: Normal. Vasculature: No vascular injury. Spine/ Bones: No acute abnormality of the spine. No other bony injury. Dextroscoliosis of the spine with the apex centered within the upper lumbar spine. Multilevel degenerative changes. Grade 1 anterolisthesis of L4 on L5. Severe degenerative changes of the left shoulder. Soft tissues: Punctate foci of fat stranding within the left gluteal soft tissues likely represent small contusions. IMPRESSION: 1. Small right pneumothorax with satisfactory positioning of a right lateral approach chest tube with the tip terminating at the right lung apex. No adjacent rib fractures are seen. 2. Pulmonary opacity could represent reexpansion pulmonary edema, pulmonary contusion, pulmonary hemorrhage or atelectasis within the right lung with bilateral paraseptal and centrilobular emphysematous changes noted. 3. Trace right pleural effusion with associated passive atelectasis. 4. Punctate foci of fat stranding within the left gluteal soft tissues likely represent small contusions. 5. No visceral organ injury within the abdomen or pelvis. [facility] 2023-09-07 01:44:51 EXAM: CT BRAIN WITHOUT CONTRAST DATE: 09/07/2023 INDICATION: - pain after GLF. COMPARISON: None. TECHNIQUE: Axial CT images of the brain were obtained. Sagittal and coronal reformats. IV contrast: None DLP: Refer to CT protocol form FINDINGS: There is no abnormal intracranial hyperdensity to suggest acute intracranial hemorrhage. There are hypodense areas seen within the right occipital region as well as right parietal regions, which are nonspecific and may represent age-indeterminate ischemic areas. No significant midline shift. Basal cisterns appear patent. Ventricular configuration appears unremarkable. Global parenchymal volume loss with resultant sulcal and ventricular prominence. Supratentorial white matter hypodensities are nonspecific but most consistent with chronic microangiopathic ischemic changes. The skull base, calvarium, and included facial bones are unremarkable. The paranasal sinuses are predominantly clear. IMPRESSION: 1. No acute intracranial hemorrhage. 2. Nonspecific hypodense areas are seen within the right parietal and occipital region, which may represent age-indeterminate ischemia, possibly chronic, but can be better characterized on MR brain. 2. Chronic brain parenchymal volume loss and microvascular ischemic changes. The findings were discussed by Kai Tidwell MD with Harini Cooper MD on 09/07/2023 7:41 hrs. [facility] 2023-09-06 23:45:00 EXAM: XR LEFT ELBOW 3 VIEWS DATE: 09/06/2023 23:45 INDICATION: - Trauma COMPARISON: None. TECHNIQUE: AP, lateral and oblique radiographs of the elbow FINDINGS: No acute fracture or malalignment is identified. No elbow joint effusion is present. No soft tissue abnormality is identified. IMPRESSION: No acute abnormality. [facility] 2023-09-06 23:45:00 EXAM: XR LEFT HAND 3 VIEWS EXAM: XR LEFT WRIST 3 VIEWS DATE: 09/06/2023 23:45 INDICATION: - Trauma COMPARISON: None. TECHNIQUE: 3 views of the hand, 3 views of the wrist FINDINGS: Hand: No acute fracture or malalignment is identified. Wrist: Comminuted intra-articular fracture of the distal left radius with dorsal angulation. Comminuted fracture of the distal left ulnar diaphysis. Soft tissues: Soft tissue swelling of the left wrist. IMPRESSION: Comminuted intra-articular fracture of the distal left radius with dorsal angulation. Comminuted fracture of the distal left ulnar diaphysis. [facility] 2023-09-06 20:14:00 EXAM: XR CHEST 1 VIEW DATE: 09/06/2023 20:14 INDICATION: - known PTX COMPARISON: Same day TECHNIQUE: AP chest. FINDINGS: Lines, tubes and hardware: Right-sided chest tube is present. Lungs and pleura: Interval decrease in the right large pneumothorax. There is been reexpansion of right lung with associated pulmonary opacities.. Heart and mediastinum: No significant change in the heart configuration or mediastinum. Bones and soft tissues: The bones are unchanged when compared to the same day chest radiograph.. IMPRESSION: Interval decrease in the right large pneumothorax status post right sided chest tube with associated reexpansion of the right lung with pulmonary opacities may represent subsegmental atelectasis, pulmonary edema or pulmonary contusions setting of trauma. [facility] 2018-01-03 16:45:00 Patient Name: RICK A LONG : 1960; Age: 57 years y/o Female MR: [id number] Study: Retroperitoneal Complete US Clinical Indication: - acidosis, hypokalmia, check for stones.; Comparison: None TECHNIQUE: Multiple longitudinal and transverse real time sonographic images of the kidneys and urinary bladder are obtained. FINDINGS: KIDNEY: The right kidney measures 10 x 4.4 x 5.3cm. The left kidney measures 11.6 x 5.4 x 4.7 cm. Both kidneys demonstrate diffusely increased renal cortical echogenicity suggesting underlying chronic medical renal disease. No pelvocaliectasis, nephrolithiasis or renal mass lesion identified bilaterally. BLADDER: Bladder is sonographically unremarkable. Visualized suprarenal IVC normal. Aorta and iliac vessels are obscured by overlying bowel gas. IMPRESSION: Hyperechoic renal parenchyma suggests underlying chronic medical renal disease. No hydronephrosis. SL: [id number] [facility] 2018-01-03 06:20:00 Clinical Indication: Line Placement - Chest 1 view for line placement: PICC PLACEMENT. Comparison: None. Technique: Single frontal view of the chest. Findings: Right arm PICC line extends to the SVC. The lungs are clear. No pleural effusions. Cardiac silhouette is normal in size. Left hemidiaphragm is elevated. Mild prominence of the left hilum may be positional. IMPRESSION: Elevated left hemidiaphragm. Right PICC line with the tip in the SVC. Mild prominence of the left hilum may be positional. SL: [id number] [facility]
[2025-07-28] MEDS ORDERED: NA CHLORIDE 0.9% 500 ML ONE (14:53)
[2025-07-28 15:03] LABS: Absolute Lymphocytes (CBC) 1.3 K/uL (0.7-4.9); Hematocrit 41.1 % (36.0-45.0); Hemoglobin 13.8 g/dL (12.0-15.0); MCH 32.0 pg (27.0-35.0); MCHC 33.7 g/dL (32.0-36.0); MCV 95.0 fL (80-100); MPV 8.1 fL (7.6-11.3); Nucleated RBC Absolute Count 0.0 (0-0); Nucleated Red Blood Cells % 0.1 % (0-0); RBC Red Blood Cell Count 4.33 M/uL (3.86-4.86); White Blood Count 5.70 thou/uL (4.3-10.9)
[2025-07-28 15:30] LABS: ALT/SGPT 47.0 U/L (13-56); Albumin 3.3 g/dL (3.4-5.0); Albumin/Globulin Ratio 0.9 (1.1-1.8); Alkaline Phosphatase 93.0 U/L (45-117); Anion Gap 10.1 mEq/L (5.0-15.0); BUN Blood Urea Nitrogen 21.0 mg/dL (7-18); Globulin 3.8 g/dL (2.3-3.5); Glucose Level 94.0 mg/dL (74-106); Lipase 31.0 U/L (13-75)
[2025-07-28 15:31] LABS: AST/SGOT 57.0 U/L (15-37); Potassium 4.1 mEq/L (3.5-5.1)
--- NOTE | 2025-07-28 17:15 | RAD REPORT ---
EXAMINATION: CT Abdomen Pelvis W Contrast CLINICAL INDICATION: Female, 64 years old. Abd pain;Constipation TECHNIQUE: CT abdomen and pelvis was performed, after the administration of IV contrast, as per [facility] protocol. Axial, sagittal and coronal reconstructions were obtained. One or more of the following dose reduction techniques were used: Automated exposure control, adjustment of the mA and k V according to patient size, and iterative reconstruction. Unless otherwise specified, incidental findings do not require dedicated imaging follow-up. COMPARISON: No prior exam. FINDINGS: LOWER CHEST: The visualized lung bases are clear. Elevation of the left hemidiaphragm. LIVER: Normal in size and contour. No focal lesion. BILIARY SYSTEM: No suspicious abnormalities. SPLEEN: Normal size. No focal lesion. PANCREAS: Evaluation of the main pancreatic duct up to 6 mm. No mass, or siri-pancreatic fluid. ADRENALS: Normal; no mass. KIDNEYS: Normal size and contour. Right extrarenal pelvis. No hydronephrosis. URINARY BLADDER: Unremarkable. GASTROINTESTINAL TRACT: No evidence of free air, significant intra-abdominal free fluid, bowel obstru ction or abscess. APPENDIX: Appendix not visualized, but no inflammatory changes in region of appendix. LYMPH NODES: No lymphadenopathy. MUSCULOSKELETAL: No acute or suspicious osseous abnormality. ADDITIONAL FINDINGS: None. IMPRESSION: No acute abnormalities seen in the abdomen or pelvis. Dilation of the main pancreatic duct to 6 mm, of uncertain significance. Please correlate with biliru bin and extrahepatic enzyme levels, and consider gastroenterology evaluation.
--- NOTE | 2025-07-28 17:25 | EDPHYS ---
Physician Documentation [facility] Name: Sharon Navarrete Age: 64 yrs Sex: Female : 1960 Arrival Date: 07/28/2025 Time: 14:17 Bed 14 Private MD: ED Physician Daniel Ramirez HPI: 07/28 14:38 This 64 yrs old Female presents to ER via Unassigned with complaints of Constipation. kb 14:38 Pt is a 64 year old female who presents for constipation that has been chronic. States kb she has had issues with constipation her whole life. States her last BM was about 3.5 weeks ago. Denies abd pain at this time, but had pain earlier today. States she has had stool on toilet paper for the past several days, but no stool is coming out. Sister googled this and read that it could be a fecal impaction so she brought her in for evaluation. . Historical: - Allergies: 14:37 Darvocet-N 100; ll1 14:37 Darvon; ll1 - PMHx: 14:37 Chronic pain; consipation; frequent falls; muscular distrophy; muscular dystrophy; ll1 Rheumatoid Arthritis; Spinabifida; Hypertensive disorder; - PSHx: 14:37 back surgery; lung collapse; ll1 - Immunization history:: Adult Immunizations up to date. - Infectious Disease History:: Denies. - Social history:: Smoking status: Patient/guardian denies using tobacco. ROS: 14:40 Constitutional: As per HPI kb Exam: 14:40 Constitutional: This is a well developed, well nourished patient who is awake, alert, kb and in no acute distress. Head/Face: Normocephalic, atraumatic. ENT: Moist Mucous membranes Cardiovascular: Regular rate Respiratory: Respirations even and unlabored. No increased work of breathing. Talking in full sentences Abdomen/GI: Soft, non-tender. No distention Skin: Warm, dry with normal turgor. Normal color. MS/ Extremity: Pulses equal, no cyanosis. Neurovascular intact. Full, normal range of motion. Neuro: Awake and alert, GCS 15, oriented to person, place, time, and situation. 14:40 Abdomen/GI: Rectal exam: is unremarkable, fecal impaction, is not appreciated, the exam is chaperoned by a family member, Vital Signs: 14:37 BP 119 / 52; Pulse 67; Resp 17; Temp 97.9; Pulse Ox 96% on R/A; Weight 38.56 kg; Height ll1 4 ft. 9 in. ; Pain 0/10; 15:00 BP 132 / 99; Pulse 68; Resp 16; Pulse Ox 98% ; me1 16:00 BP 135 / 76; Pulse 63; Resp 16; Pulse Ox 98% ; me1 17:00 BP 135 / 97; Pulse 69; Resp 16; Temp 98.4; Pulse Ox 99% ; me1 14:37 Body Mass Index 18.39 (38.56 kg, 144.78 cm) ll1 14:37 Pain Scale: Adult ll1 MDM: 14:22 Medical Screening Exam initiated kb 14:41 Differential diagnosis: constipation, colitis, bowel obstruction. Data reviewed: vital kb signs, nurses notes. Historians other than the Patient: Family Member: sister. 17:24 Counseling: I had a detailed discussion with the patient and/or guardian regarding the kb historical points, exam findings, and any diagnostic results supporting the discharge/admit diagnosis, lab results, radiology results, the need for outpatient follow up, a family practitioner, to return to the emergency department if symptoms worsen or persist or if there are any questions or concerns that arise at home. ED course: Pt had large BM just prior to CT. 07/28 14:35 Order name: CBC with Diff; Complete Time: 15:08 kb 07/28 14:35 Order name: CMP; Complete Time: 15:31 kb 07/28 14:35 Order name: Lipase; Complete Time: 15:31 kb 07/28 14:35 Order name: CT Abd/Pelvis - PO and IV Contrast; Complete Time: 17:20 kb 07/28 14:35 Order name: IV Saline Lock; Complete Time: 14:54 kb 07/28 14:35 Order name: Labs collected and sent; Complete Time: 14:54 kb Administered Medications: 14:56 Drug: NS 0.9% IV 500 ml 500 ml IV at 1 bolus once; to be given as a bolus over 30 me1 minutes Volume: 500 ml; Route: IV; Rate: 1 bolus; Site: right forearm; 15:42 Follow up: Response: No adverse reaction; IV Status: Completed infusion; IV Intake: me1 500ml Disposition Summary: 07/28/25 17:24 Discharge Ordered Notes: Location: Home kb Condition: Stable kb Diagnosis - Constipation kb Followup: kb - With: Emergency Department - When: As needed - Reason: Worsening of condition Followup: kb - With: Private Physician - When: 2 - 3 days - Reason: Recheck today's complaints, Continuance of care, Re-evaluation by your physician Discharge Instructions: - Discharge Summary Sheet kb - Constipation, Adult, [id number] kb Forms: - Medication Reconciliation Form kb - Antibiotic Education kb - Prescription Opioid Use kb - Patient Portal Instructions kb - Leadership Thank You Letter kb Signatures: Dispatcher [employer] EDCarmel Cooper, TOM-C [employer]-Marialuisa Patel RN RN ll1 Ambika Pa RN RN me1
--- NOTE | 2025-07-28 17:25 | ER ---
Nurse's Notes [facility] Name: Sharon Navarrete Age: 64 yrs Sex: Female : 1960 Arrival Date: 07/28/2025 Time: 14:17 Bed 14 Private MD: Diagnosis: Constipation Presentation: 07/28 14:37 Chief complaint: Patient states: Constipation for 3.5 weeks, intermittent abdominal ll1 pain. No fever. Coronavirus screen: Client denies travel out of the [place] in the last 14 days. At this time, the client does not indicate any symptoms associated with coronavirus-19. Ebola Screen: Patient denies travel to an Ebola-affected area in the 21 days before illness onset. Initial Sepsis Screen: Does the patient meet any 2 criteria? No. Patient's initial sepsis screen is negative. Does the patient have a suspected source of infection? No. Patient's initial sepsis screen is negative. Risk Assessment: Do you want to hurt yourself or someone else? Patient reports no desire to harm self or others. Onset of symptoms was June 30, 2025. 14:37 Method Of Arrival: Ambulatory ll1 14:37 Acuity: PRANAY 3 ll1 Triage Assessment: 14:39 General: Appears in no apparent distress. Behavior is calm, cooperative, appropriate ll1 for age. Pain: Denies pain. GI: Reports lower abdominal pain, constipation, cramping. Historical: - Allergies: 14:37 Darvocet-N 100; ll1 14:37 Darvon; ll1 - PMHx: 14:37 Chronic pain; consipation; frequent falls; muscular distrophy; muscular dystrophy; ll1 Rheumatoid Arthritis; Spinabifida; Hypertensive disorder; - PSHx: 14:37 back surgery; lung collapse; ll1 - Immunization history:: Adult Immunizations up to date. - Infectious Disease History:: Denies. - Social history:: Smoking status: Patient/guardian denies using tobacco. Screenin:56 [facility] ED Fall Risk Assessment (Adult) History of falling in the last 3 months, me1 including since admission No falls in past 3 months (0 pts) Confusion or Disorientation No (0 pts) Intoxicated or Sedated No (0 pts) Impaired Gait Yes (1 pt) Mobility Assist Device Used Yes (1 pt) Altered Elimination No (0 pt) Score/Fall Risk Level 0 - 2 = Low Risk Maintained a safe environment, Provided non-skid footwear, Hourly rounding (assess needs \T\ fall precautionary measures) done. Abuse screen: Denies threats or abuse. Nutritional screening: No deficits noted. Tuberculosis screening: No symptoms or risk factors identified. Assessment: 14:56 General: Appears uncomfortable, slender, well groomed, well developed, Behavior is me1 calm, cooperative, appropriate for age, Reports Constipation for 3.5 weeks, intermittent abdominal pain. No fever. Pain: Complains of pain in abdomen Pain does not radiate. Pain currently is 0 out of 10 on a pain scale. at worst was 5 out of 10 on a pain scale. Quality of pain is described as crampy, Pain began gradually, Is intermittent. Neuro: Level of Consciousness is awake, alert, obeys commands, Oriented to person, place, time, situation, Appropriate for age. Cardiovascular: Patient's skin is warm and dry. Respiratory: Airway is patent Respiratory effort is even, unlabored, Respiratory pattern is regular, symmetrical. GI: Abdomen is round Bowel sounds present X 4 quads. Abd is soft X 4 quads. : No signs and/or symptoms were reported regarding the genitourinary system. EENT: No signs and/or symptoms were reported regarding the EENT system. Derm: Skin is intact, is healthy with good turgor, Skin is normal. Musculoskeletal: Circulation, motion, and sensation intact. Range of motion: intact in all extremities. Vital Signs: 14:37 BP 119 / 52; Pulse 67; Resp 17; Temp 97.9; Pulse Ox 96% on R/A; Weight 38.56 kg; Height ll1 4 ft. 9 in. ; Pain 0/10; 15:00 BP 132 / 99; Pulse 68; Resp 16; Pulse Ox 98% ; me1 16:00 BP 135 / 76; Pulse 63; Resp 16; Pulse Ox 98% ; me1 17:00 BP 135 / 97; Pulse 69; Resp 16; Temp 98.4; Pulse Ox 99% ; me1 14:37 Body Mass Index 18.39 (38.56 kg, 144.78 cm) ll1 14:37 Pain Scale: Adult ll1 ED Course: 14:22 Patient arrived in ED. al6 14:22 Carmel Slater FNP-C is [facility]. kb 14:22 Daniel Ramirez MD is Attending Physician. kb 14:36 Arm band placed on Patient placed in an exam room, on a stretcher. ll1 14:39 Triage completed. ll1 14:41 Ambika Pa, RN is Primary Nurse. me1 14:55 Inserted saline lock: 22 gauge in right forearm, using aseptic technique. Blood pm7 collected. Flushed with 10 mL NS. 14:56 Patient has correct armband on for positive identification. Bed in low position. Call me1 light in reach. Side rails up X2. Provided Education on: POC. Verbalized understanding.. Client placed on continuous cardiac and pulse oximetry monitoring. NIBP monitoring applied. Pulse ox on. NIBP on. 14:56 No provider procedures requiring assistance completed. me1 16:21 CT Abd/Pelvis - PO and IV Contrast In Process Unspecified. EDMS 16:52 Cleaned of incontinence. Linen changed. pm7 17:37 IV discontinued, intact, bleeding controlled, No redness/swelling at site. Pressure me1 dressing applied. Administered Medications: 14:56 Drug: NS 0.9% IV 500 ml 500 ml IV at 1 bolus once; to be given as a bolus over 30 me1 minutes Volume: 500 ml; Route: IV; Rate: 1 bolus; Site: right forearm; 15:42 Follow up: Response: No adverse reaction; IV Status: Completed infusion; IV Intake: me1 500ml Medication: 14:56 VIS not applicable for this client. me1 Intake: 15:42 IV: 500ml; Total: 500ml. me1 Outcome: 17:24 Discharge ordered by . kb 17:37 Discharged to home via wheelchair, with family, me1 17:37 Condition: stable 17:37 Discharge instructions given to patient, family, Instructed on discharge instructions, follow up and referral plans. Demonstrated understanding of instructions, follow-up care, 17:37 Patient left the ED. me1 Signatures: Dispatcher [employer] EDMS Carmel Slater FNP-C FNP-Marialuisa Patel RN RN 1 Ambika Pa, SONG RN me1 Stephanie Ladd al6 Fanta Ruano pm7 Corrections: (The following items were deleted from the chart) 14:56 14:37 Chief complaint: Patient states: Constipation for 3.5 weeks, intermittent me1 abdominal pain. No fever ll1
[2025-07-28 18:07] VITALS: BP 135/97; TEMP 98.4; O2SAT 99
== END 2025-07-28 17:37 | disposition home or self-care (01) ==
LOC: ER 14:17
DX: K59.00 Constipation, unspecified (principal)
CPT/HCPCS: 85025; 36415; 83690; 80053; 74177; 96360; 99284; Q9967; J7040